=== PATIENT | female | born 1950 | race Two or more races ===

== ENCOUNTER 2020-07-10 15:13 | Emergency (ER) | payer MEDICARE, MEDICAID, SELFPAY ==
--- NOTE | ~2020-07-10 | XR_ITS ---
EXAMINATION: XR CHEST CLINICAL INFORMATION: Weakness COMPARISON: Chest x-ray 10/23/2018. CT chest 11/29/2018 TECHNIQUE: 2 views of the chest were obtained. FINDINGS: Lung volume is low. No significant central pulmonary vascular congestion. No focal consolidation. There is no pleural effusion or pneumothorax. Cardiac and mediastinal contours are normal. XR/XR chest 2V IMPRESSION: No acute abnormality of chest.
[2020-07-10 15:24] VITALS: BP 141/56; BP 150/90; PULSE 94; PULSE 95; RESP 16; TEMP 37.7; O2SAT 92; O2SAT 94; BMI 39.4
--- NOTE | 2020-07-10 15:52 | ECG_ITS ---
Test Reason : MEDICAL Blood Pressure : / mmHG Vent. Rate : 094 BPM Atrial Rate : 094 BPM P-R Int : 158 ms QRS Dur : 088 ms QT Int : 354 ms P-R-T Axes : 061 -20 013 degrees QTc Int : 442 ms Normal sinus rhythm Normal ECG When compared with ECG of 26-AUG-2016 09:48, Nonspecific T wave abnormality has replaced inverted T waves in Inferior leads Nonspecific T wave abnormality no longer evident in Lateral leads Referred By: Samantha Knowles Electronically Signed By:ELYSE ECHAVARRIA MD
[2020-07-10 16:00] VITALS: BP 145/74; PULSE 95; RESP 16; TEMP 37.6; O2SAT 99
[2020-07-10 17:11] LABS: Basophils Percent Auto 0.1 % (0-2); Hematocrit 37.7 % (37-47); Hemoglobin 12.2 g/dl (12.0-16.0); Imm Gran Abs Auto 0.08 X10*3/uL (0.00-0.03); Imm Gran Pct Auto 0.6 % (0.0-0.4); Lymphocytes Absolute Auto 0.6 X10*3/uL (1.2-4.9); MANUAL DIFF FLAG SCAN; Mean Corpuscular HGB Conc 32.4 g/dl (31.0-35.0); Mean Corpuscular Hemoglobin 31.5 pg (27.0-33.0); Mean Corpuscular Volume 97.4 fL (80-98); Mean Platelet Volume 9.3 fL (9.4-12.3); Monocytes Absolute Auto 0.6 X10*3/uL (0.1-1.2); Monocytes Percent Auto 4.1 % (2-11); Neutrophils Absolute Auto 13.1 X10*3/uL (2.0-8.3); Neutrophils Percent Auto 91.2 % (45-73); Platelet Count 225 X10*3/uL (160-400); Red Blood Count 3.87 X10*6/uL (4.20-5.50); SCAN SMEAR FLAG 1; White Blood Count 14.4 X10*3/uL (4.8-10.8)
[2020-07-10 17:12] LABS: Glucose Urine UA NEG (NEG); Leukocyte Esterase Urine TRACE (NEG); Nitrite Urine NEG (NEG); PH >= 9.0 (5.0-8.0); Specific Gravity - Urine 1.015 (1.005-1.025); UACC Culture Trigger YES; Urine Blood 1+ (NEG); Urine Ketones NEG (NEG); Urine Protein NEG (NEG-TRACE)
[2020-07-10 17:14] LABS: Appearance Urine HAZY; Color Urine YELLOW
[2020-07-10 17:15] LABS: INTERNATIONAL NORM RATIO 1.1 (0.9-1.1); Prothrombin Time 12.9 SEC (10.8-13.0)
[2020-07-10 17:18] LABS: Partial Thromboplastin Time 30.5 SEC (24.1-38.0)
[2020-07-10 17:26] LABS: Bacteria Urine 1+ /LPF; Squamous Epithelial Cell Urine 1+ /LPF
[2020-07-10 17:31] LABS: SLIDE REVIEW VERIFIED
[2020-07-10 17:34] LABS: Alanine Aminotransferase 7 U/L (0-31); Albumin Level 3.9 g/dL (3.5-5.0); Alkaline Phosphatase 79 U/L (39-117); Anion Gap 13 (12-20); Aspartate Amino Transferase 16 U/L (5-31); Bilirubin Total 0.5 mg/dL (0.0-1.0); Blood Urea Nitrogen 14 mg/dL (9-16); Carbon Dioxide 29 mmol/L (22-29); Chloride 103 mmol/L (96-108); Creatinine Clr Calc Pharmacy 48.7; Estimated Glomerular Filt Rate 54; Glucose Random 104 mg/dL (60-115); Potassium 3.9 mmol/L (3.3-5.1); Sodium 141 mmol/L (135-145); Total Protein 6.7 g/dL (6.5-8.0)
[2020-07-10 17:41] LABS: B Type Natriuretic Peptide 18 pg/mL (<100); Troponin-I High Sensitivity < 3.5 ng/L (<3.5-17.0)
--- NOTE | 2020-07-10 17:51 | ED_ITS ---
HPI - General Adult General Chief complaint: General Medical Stated complaint: body tingles, back pain, low o2 Time Seen by Provider: 07/10/20 15:41 Source: patient Mode of arrival: EMS Limitations: no limitations History of Present Illness HPI narrative: Patient is a 70-year-old female who was BIBA after experiencing numbness and tingling in her arms and hands, she states this is what happens when she gets pneumonia. She also states she has headache neck pain and back pain and malaise. She denies any abdominal pain chest pain shortness of breath or fevers. Related Data Home Medications Medication Instructions Recorded Confirmed acetaminophen 650 mg 650 mg PO Q8H PRN 06/08/20 06/08/20 tablet,extended release albuterol sulfate 2.5 mg INHALATION Q6H 06/08/20 06/08/20 albuterol sulfate 90 mcg/actuation 2 puff PO Q4-6H PRN 06/08/20 06/08/20 aerosol inhaler alendronate 70 mg tablet 70 mg PO QWEEK 06/08/20 06/08/20 aspirin 81 mg tablet,delayed 81 mg PO BEDTIME 06/08/20 06/08/20 release atorvastatin 20 mg tablet 20 mg PO DAILY 06/08/20 06/08/20 baclofen 10 mg tablet 10 mg PO TID PRN 06/08/20 06/08/20 bupropion HCl 150 mg 24 hr tablet, 150 mg PO BEDTIME 06/08/20 06/08/20 extended release calcium carbonate 500 mg calcium 500 mg PO QAM 06/08/20 06/08/20 (1,250 mg) tablet calcium carbonate 500 mg(1,250 1 tab PO QAM 06/08/20 06/08/20 mg)-vitamin D3 400 unit chewable tablet cholecalciferol (vitamin D3) 50 50 mcg PO QAM 06/08/20 06/08/20 mcg (2,000 unit) capsule desmopressin 0.2 mg tablet 0.4 mg PO BEDTIME 06/08/20 06/08/20 docusate sodium 100 mg capsule 100 mg PO BEDTIME PRN 06/08/20 06/08/20 ferrous sulfate 325 mg (65 mg 325 mg PO BEDTIME 06/08/20 06/08/20 iron) tablet fluticasone propionate 110 2 puff PO BID 06/08/20 06/08/20 mcg/actuation HFA aerosol inhaler fluticasone propionate 50 2 spray INTRANASAL DAILY 06/08/20 06/08/20 mcg/actuation nasal spray,suspension gabapentin 100 mg capsule 100 mg PO TID 06/08/20 06/08/20 hydrochlorothiazide 25 mg tablet 25 mg PO QAM 06/08/20 06/08/20 hydroxyzine pamoate 25 mg capsule 25 mg PO Q6H PRN 06/08/20 06/08/20 loratadine 10 mg tablet 10 mg PO QAM 06/08/20 06/08/20 melatonin 5 mg tablet 5 mg PO BEDTIME PRN 06/08/20 06/08/20 meloxicam 7.5 mg tablet 7.5 mg PO DAILY 06/08/20 06/08/20 montelukast 10 mg tablet 10 mg PO DAILY 06/08/20 06/08/20 sertraline 50 mg tablet 50 mg PO QAM 06/08/20 06/08/20 tramadol 50 mg tablet 50 mg PO Q12H PRN 06/08/20 06/08/20 trazodone 150 mg tablet 300 mg PO BEDTIME 06/08/20 06/08/20 Previous Rx's Medication Instructions Recorded cefuroxime axetil 500 mg PO Q12H #20 tab 07/10/20 Allergies Allergy/AdvReac Type Severity Reaction Status Date / Time prednisone [PREDNISONE] Allergy Severe AGITATION Verified 06/08/20 14:11 Review of Systems Review of Systems: Yes all other systems are reviewed and are negative [facility] Past Medical History Medical History Constipation by delayed colonic transit Depression Dyslipidemia Essential hypertension Hypovitaminosis D Insomnia Iron deficiency anemia Moderate asthma Osteoporosis Renal calculi Surgical History H/O: section Hx of breast reduction, elective Hx of laparoscopic gastric banding Family History Family History Father No problems noted. Mother Breast cancer Sister Diabetes Heart attack Maternal Grandmother Brain cancer Social History Social History Alcohol intake: never Smoking Status: Former smoker Tobacco Type: Cigarette Smoked in Last 30 Days: No Use of substances other than those prescribed or required for medical reasons: No Advance Directives: No Advance Directives Information Provided: Yes Physical Exam Vital Signs: Vital Signs: Last Vital Signs Temp 99.6 F 07/10/20 16:00 Pulse 95 07/10/20 16:00 Resp 16 07/10/20 16:00 BP 145/74 H 07/10/20 16:00 Pulse Ox 99 07/10/20 16:00 Body Mass Index 39.4 Const: General: cooperative, healthy appearing, comfortable, no acute distress and well developed Orientation/consciousness: patient oriented x3 Limitations: no limitations HENMT: Head: Yes normal to inspection Eyes: General: appearance normal, both eyes and all related structures Neck: Neck: Yes normal visual inspection and Yes full ROM Resp: Effort & Inspection: normal respiratory effort and able to speak in complete sentences Auscultation: clear to auscultation bilaterally Cardio: Rate: regular rate Rhythm: regular rhythm Heart sounds: normal S1 and S2 GI: Inspection: Yes normal to inspection Palpation (GI): Soft to palpation and nontender Skin: General skin exam: no rashes or lesions noted Neuro: General: patient oriented x3 Extrem: General: Yes normal to inspection Course Course Course Narrative: 70-year-old female of depression, HTN, iron deficiency anemia, asthma, osteoporosis, renal calculi and constipation presenting with 2 days of just not feeling right. She believes she has pneumonia because her arms were tingling and this is what happened to her before. Will get EKG chest x-ray UA and basic labs. Reevaluation(s) Reevaluation #1: White blood cell count 14.4, UA positive chest x-ray negative, EKG negative for acute process. Will give Tylenol, 1st dose of antibiotic and discharged home. Medical Decision Making Lab Data Result diagrams: 07/10/20 17:01 07/10/20 17:01 Labs: Lab Results 07/10/20 07/10/20 07/10/20 Range/Units 17:00 17:00 17:00 WBC (4.8-10.8) X10*3/uL RBC (4.20-5.50) X10*6/uL Hgb (12.0-16.0) g/dl Hct (37-47) % MCV (80-98) fL MCH (27.0-33.0) pg MCHC (31.0-35.0) g/dl RDW (11.0-16.0) % Plt Count (160-400) X10*3/uL MPV (9.4-12.3) fL Immature Gran % (Auto) (0.0-0.4) % Neut % (Auto) (45-73) % Lymph % (Auto) (20-40) % Cole % (Auto) (2-11) % Eos % (Auto) (0-4) % Baso % (Auto) (0-2) % Lymph # (Auto) (1.2-4.9) X10*3/uL Cole # (Auto) (0.1-1.2) X10*3/uL Eos # (Auto) (0.0-0.4) X10*3/uL Baso # (Auto) (0.0-0.2) X10*3/uL Abs Immat Gran (auto) (0.00-0.03) X10*3/uL Absolute Neuts (auto) (2.0-8.3) X10*3/uL Absolute Nucleated RBC (0.0-0.012) X10*3/uL Nucleated RBC % (auto) (0.0-0.2) /100WBC Smear Tech's Comments PT (10.8-13.0) SEC INR (0.9-1.1) APTT (24.1-38.0) SEC Sodium (135-145) mmol/L Potassium (3.3-5.1) mmol/L Chloride (96-108) mmol/L Carbon Dioxide (22-29) mmol/L Anion Gap (12-20) BUN (9-16) mg/dL Creatinine (0.5-1.4) mg/dL Estim Creat Clear Calc Estimated GFR Random Glucose (60-115) mg/dL Calcium (8.4-10.2) mg/dL Magnesium (1.6-2.6) mg/dL Total Bilirubin (0.0-1.0) mg/dL AST (5-31) U/L ALT (0-31) U/L Alkaline Phosphatase (39-117) U/L Troponin I High Sens < 3.5 (<3.5-17.0) ng/L B-Natriuretic Peptide Cancelled 18 Total Protein (6.5-8.0) g/dL Albumin (3.5-5.0) g/dL Urine Color YELLOW Urine Appearance HAZY Urine pH >= 9.0 H (5.0-8.0) Ur Specific [place] 1.015 (1.005-1.025) Urine Protein NEG (NEG-TRACE) MG/DL Urine Glucose (UA) NEG (NEG) MG/DL Urine Ketones NEG (NEG) MG/DL Urine Blood 1+ H (NEG) Urine Nitrite NEG (NEG) Ur Leukocyte Esterase TRACE H (NEG) Urine RBC 10-14 H (0) /HPF Urine WBC 5-9 H (0-4) /HPF Ur Squamous Epith Cells 1+ /LPF Urine Bacteria 1+ /LPF 07/10/20 07/10/20 07/10/20 Range/Units 17:01 17:01 17:01 WBC 14.4 H (4.8-10.8) X10*3/uL RBC 3.87 L (4.20-5.50) X10*6/uL Hgb 12.2 (12.0-16.0) g/dl Hct 37.7 (37-47) % MCV 97.4 (80-98) fL MCH 31.5 (27.0-33.0) pg MCHC 32.4 (31.0-35.0) g/dl RDW 13.0 (11.0-16.0) % Plt Count 225 (160-400) X10*3/uL MPV 9.3 L (9.4-12.3) fL Immature Gran % (Auto) 0.6 H (0.0-0.4) % Neut % (Auto) 91.2 H (45-73) % Lymph % (Auto) 4.0 L (20-40) % Cole % (Auto) 4.1 (2-11) % Eos % (Auto) 0.0 (0-4) % Baso % (Auto) 0.1 (0-2) % Lymph # (Auto) 0.6 L (1.2-4.9) X10*3/uL Cole # (Auto) 0.6 (0.1-1.2) X10*3/uL Eos # (Auto) 0.0 (0.0-0.4) X10*3/uL Baso # (Auto) 0.0 (0.0-0.2) X10*3/uL Abs Immat Gran (auto) 0.08 H (0.00-0.03) X10*3/uL Absolute Neuts (auto) 13.1 H (2.0-8.3) X10*3/uL Absolute Nucleated RBC 0.000 (0.0-0.012) X10*3/uL Nucleated RBC % (auto) 0.0 (0.0-0.2) /100WBC Smear Tech's Comments VERIFIED PT 12.9 (10.8-13.0) SEC INR 1.1 (0.9-1.1) APTT 30.5 (24.1-38.0) SEC Sodium 141 (135-145) mmol/L Potassium 3.9 (3.3-5.1) mmol/L Chloride 103 (96-108) mmol/L Carbon Dioxide 29 (22-29) mmol/L Anion Gap 13 (12-20) BUN 14 (9-16) mg/dL Creatinine 1.01 (0.5-1.4) mg/dL Estim Creat Clear Calc 48.7 Estimated GFR 54 Random Glucose 104 (60-115) mg/dL Calcium 9.0 (8.4-10.2) mg/dL Magnesium 2.0 (1.6-2.6) mg/dL Total Bilirubin 0.5 (0.0-1.0) mg/dL AST 16 (5-31) U/L ALT 7 (0-31) U/L Alkaline Phosphatase 79 (39-117) U/L Troponin I High Sens (<3.5-17.0) ng/L B-Natriuretic Peptide Total Protein 6.7 (6.5-8.0) g/dL Albumin 3.9 (3.5-5.0) g/dL Urine Color Urine Appearance Urine pH (5.0-8.0) Ur Specific [place] (1.005-1.025) Urine Protein (NEG-TRACE) MG/DL Urine Glucose (UA) (NEG) MG/DL Urine Ketones (NEG) MG/DL Urine Blood (NEG) Urine Nitrite (NEG) Ur Leukocyte Esterase (NEG) Urine RBC (0) /HPF Urine WBC (0-4) /HPF Ur Squamous Epith Cells /LPF Urine Bacteria /LPF Imaging Data Chest x-ray: Attestation: I personally reviewed and interpreted this imaging study as follows: Radiologist's impression: [address] [id number] ReportSigned Patient: Jennifer Whitehead IMR#: [id number]: [id number]:[id number]/Sex: 70 / FADM Date: 07/10/20Loc: [address]: Ordering Physician: Samantha Knowles PA-C Date of Service: 07/10/20 Procedure(s): XR chest 2V Accession Number(s): [id number] cc: Samantha Knowles PA-C~ EXAMINATION: XR CHEST CLINICAL INFORMATION: Weakness COMPARISON: Chest x-ray 10/23/2018. CT chest 11/29/2018 TECHNIQUE: 2 views of the chest were obtained. FINDINGS: Lung volume is low. No significant central pulmonary vascular congestion. No focal consolidation. There is no pleural effusion or pneumothorax. Cardiac and mediastinal contours are normal. XR/XR chest 2V IMPRESSION: No acute abnormality of chest. Dictated By:NILE PITTS MDSigned By:<Electronically signed by NILE PITTS MD in OV>07/10/20 1738 DD/ 1552TD/TT: Consultant In Ergonomics And Safety: ANA ECG Data Attestation: I personally reviewed and interpreted this ECG as follows: Interpretation: [address] [id number] lectrocardiograph ReportDraft Patient: Jennifer Whitehead IMR#: [id number]: [id number]:[id number]/Sex: 70 / FADM Date: 07/10/20Loc: [address]: Ordering Physician: Samantha Knowles PA-C Date of Service: 07/10/20 Procedure(s): ECG 12 lead EKG Accession Number(s): [id number] cc: ~ Test Reason : MEDICAL Blood Pressure : / mmHG Vent. Rate : 094 BPM Atrial Rate : 094 BPM P-R Int : 158 ms QRS Dur : 088 ms QT Int : 354 ms P-R-T Axes : 061 -20 013 degrees QTc Int : 442 ms Normal sinus rhythm Normal ECG When compared with ECG of 26-AUG-2016 09:48, Nonspecific T wave abnormality has replaced inverted T waves in Inferior leads Nonspecific T wave abnormality no longer evident in Lateral leads Referred By: Samantha Knowles Electronically Signed By: Dictated By:Signed By: DD/ 1628TD/TT: 07/10/20 1629Transcriptionist: Discharge Plan Discharge Clinical Impression: Urinary tract infection Qualifiers: Urinary tract infection type: acute cystitis Hematuria presence: without hematuria Qualified Code(s): N30.00 - Acute cystitis without hematuria Patient Disposition: Home, Self-Care Instructions: Urinary Tract Infection in Older Adults (ED) Prescriptions: New cefuroxime axetil 500 mg tablet 500 mg PO Q12H Qty: 20 RF: 0 No Action acetaminophen 650 mg tablet extended release 650 mg PO Q8H PRN (Reason: fever) RF: 0 aspirin 81 mg tablet,delayed release (DR/EC) 81 mg PO BEDTIME RF: 0 albuterol sulfate 90 mcg/actuation HFA aerosol inhaler 2 puff PO Q4-6H PRNRF: 0 Flovent HFA 110 mcg/actuation HFA aerosol inhaler 2 puff PO BID RF: 0 albuterol sulfate 2.5 mg /3 mL (0.083 %) solution for nebulization 2.5 mg inhalation Q6H RF: 0 baclofen 10 mg tablet 10 mg PO TID PRN (Reason: muscle spasm) RF: 0 calcium carbonate 500 mg calcium (1,250 mg) tablet 500 mg PO QAM RF: 0 desmopressin 0.2 mg tablet 0.4 mg PO BEDTIME RF: 0 ferrous sulfate 325 mg (65 mg iron) tablet 325 mg PO BEDTIME RF: 0 alendronate 70 mg tablet 70 mg PO QWEEK RF: 0 hydrochlorothiazide 25 mg tablet 25 mg PO QAM RF: 0 gabapentin 100 mg capsule 100 mg PO TID RF: 0 loratadine 10 mg tablet 10 mg PO QAM RF: 0 atorvastatin 20 mg tablet 20 mg PO DAILY RF: 0 montelukast 10 mg tablet 10 mg PO DAILY RF: 0 melatonin 5 mg tablet 5 mg PO BEDTIME PRN (Reason: insomnia) RF: 0 fluticasone propionate 50 mcg/actuation spray,suspension 2 spray intranasal DAILY RF: 0 tramadol 50 mg tablet 50 mg PO Q12H PRN (Reason: severe pain) RF: 0 hydroxyzine pamoate 25 mg capsule 25 mg PO Q6H PRN (Reason: anxiety) RF: 0 calcium carbonate-vitamin D3 500 mg(1,250mg) -400 unit tablet,chewable 1 tab PO QAM RF: 0 cholecalciferol (vitamin D3) 50 mcg (2,000 unit) capsule 50 mcg PO QAM RF: 0 bupropion HCl 150 mg tablet extended release 24 hr 150 mg PO BEDTIME RF: 0 sertraline 50 mg tablet 50 mg PO QAM RF: 0 docusate sodium 100 mg capsule 100 mg PO BEDTIME PRN (Reason: constipation) RF: 0 trazodone 150 mg tablet 300 mg PO BEDTIME RF: 0 meloxicam 7.5 mg tablet 7.5 mg PO DAILY RF: 0
[2020-07-10] MEDS: Acetaminophen 325 MG TABLET 650 MG PO (18:08)
== END 2020-07-10 18:22 | disposition home or self-care (01) ==
PROVIDERS: Physician Assistant; Emergency Provider Internal Medicine; PCP Family Medicine
DX: N30.00 Acute cystitis without hematuria (principal); I10 Essential (primary) hypertension; E78.5 Hyperlipidemia, unspecified; J45.909 Unspecified asthma, uncomplicated; D50.9 Iron deficiency anemia, unspecified; Z79.82 Long term (current) use of aspirin; Z79.899 Other long term (current) drug therapy; Z79.02 Long term (current) use of antithrombotics/antiplatelets
CPT/HCPCS: 36415; 71046; 80053; 81001; 81003; 83735; 83880; 84484; 85025; 85610; 85730; 87086; 93005; 99283; 99284

== ENCOUNTER 2020-07-26 13:19 | Inpatient (IN) | payer MEDICARE, MEDICAID, SELFPAY ==
--- NOTE | ~2020-07-26 | XR_ITS ---
EXAMINATION: 1. CHEST X-RAY 2. RADIOGRAPHS RIGHT ANKLE 3. RADIOGRAPHS LEFT ANKLE CLINICAL INFORMATION: Chest tenderness and bilateral ankle pain and swelling status post fall COMPARISON: Chest x-rays 07/10/2020 TECHNIQUE: Frontal view of the chest and 3 views of each ankle were obtained. FINDINGS: Chest: Cardiac silhouette is normal in size. Atherosclerotic disease of the aortic arch. The lungs are well aerated. There is no lobar consolidation. No pleural effusion or pneumothorax. Right ankle: Nondisplaced distal fibular fracture. There is prominent overlying soft tissue swelling. There is no fracture of the medial malleolus. Ankle mortise is grossly maintained. Left ankle: Lateral malleolus fracture with approximately 5 mm lateral offset of the distal fracture fragment. There is also a fracture of the medial malleolus with the body of the tibia is displaced medially by approximately 7 mm. As such there is disruption of the ankle mortise. There is prominent soft tissue swelling of the left ankle, most predominantly laterally. Small plantar calcaneal enthesophytes. XR/XR ankle LT min 3V IMPRESSION: 1. Bimalleolar fractures of the left ankle with associated disruption of the ankle mortise. 2. Nondisplaced fracture of the right lateral malleolus with maintenance of the ankle mortise. 3. No acute pulmonary pathology.
--- NOTE | ~2020-07-26 | XR_ITS ---
EXAMINATION: 1. CHEST X-RAY 2. RADIOGRAPHS RIGHT ANKLE 3. RADIOGRAPHS LEFT ANKLE CLINICAL INFORMATION: Chest tenderness and bilateral ankle pain and swelling status post fall COMPARISON: Chest x-rays 07/10/2020 TECHNIQUE: Frontal view of the chest and 3 views of each ankle were obtained. FINDINGS: Chest: Cardiac silhouette is normal in size. Atherosclerotic disease of the aortic arch. The lungs are well aerated. There is no lobar consolidation. No pleural effusion or pneumothorax. Right ankle: Nondisplaced distal fibular fracture. There is prominent overlying soft tissue swelling. There is no fracture of the medial malleolus. Ankle mortise is grossly maintained. Left ankle: Lateral malleolus fracture with approximately 5 mm lateral offset of the distal fracture fragment. There is also a fracture of the medial malleolus with the body of the tibia is displaced medially by approximately 7 mm. As such there is disruption of the ankle mortise. There is prominent soft tissue swelling of the left ankle, most predominantly laterally. Small plantar calcaneal enthesophytes. XR/XR chest 1V IMPRESSION: 1. Bimalleolar fractures of the left ankle with associated disruption of the ankle mortise. 2. Nondisplaced fracture of the right lateral malleolus with maintenance of the ankle mortise. 3. No acute pulmonary pathology.
--- NOTE | ~2020-07-26 | XR_ITS ---
EXAMINATION: 1. CHEST X-RAY 2. RADIOGRAPHS RIGHT ANKLE 3. RADIOGRAPHS LEFT ANKLE CLINICAL INFORMATION: Chest tenderness and bilateral ankle pain and swelling status post fall COMPARISON: Chest x-rays 07/10/2020 TECHNIQUE: Frontal view of the chest and 3 views of each ankle were obtained. FINDINGS: Chest: Cardiac silhouette is normal in size. Atherosclerotic disease of the aortic arch. The lungs are well aerated. There is no lobar consolidation. No pleural effusion or pneumothorax. Right ankle: Nondisplaced distal fibular fracture. There is prominent overlying soft tissue swelling. There is no fracture of the medial malleolus. Ankle mortise is grossly maintained. Left ankle: Lateral malleolus fracture with approximately 5 mm lateral offset of the distal fracture fragment. There is also a fracture of the medial malleolus with the body of the tibia is displaced medially by approximately 7 mm. As such there is disruption of the ankle mortise. There is prominent soft tissue swelling of the left ankle, most predominantly laterally. Small plantar calcaneal enthesophytes. XR/XR ankle RT min 3V IMPRESSION: 1. Bimalleolar fractures of the left ankle with associated disruption of the ankle mortise. 2. Nondisplaced fracture of the right lateral malleolus with maintenance of the ankle mortise. 3. No acute pulmonary pathology.
[2020-07-26 13:26] VITALS: BP 111/60; PULSE 76
[2020-07-26 13:36] VITALS: BP 155/75; PULSE 76; RESP 18; TEMP 36.1; O2SAT 98; BMI 39.4
--- NOTE | 2020-07-26 13:48 | ECG_ITS ---
Test Reason : FALL Blood Pressure : / mmHG Vent. Rate : 070 BPM Atrial Rate : 070 BPM P-R Int : 158 ms QRS Dur : 084 ms QT Int : 392 ms P-R-T Axes : 062 -18 002 degrees QTc Int : 423 ms Normal sinus rhythm Nonspecific ST abnormality Abnormal ECG When compared with ECG of 10-JUL-2020 16:28, No significant change was found Referred By: Judi Hampton Electronically Signed By:Iván Wilson
--- NOTE | 2020-07-26 13:48 | ED_ITS ---
HPI - Fall General Chief Complaint: Fall Stated Complaint: FALL WITH SEVERE ANKLE PAIN Time Seen by Provider: 07/26/20 13:27 Source: patient and EMS Mode of arrival: EMS Limitations: no limitations History of Present Illness HPI Narrative: 70 y/o female with history of HTN, mild intermittent asthma, depression, osteoporesis, kidney stones, osteoarthritis of knees who presents to the ER with severe left ankle pain after she fell at home. She reports she was in her bedroom and was walking to go to the bathroom. Her legs gave out on her and she fell, twisting her left ankle. Her left lower leg with pinned backwards under her and she was unable to get up. She thinks her right ankle was stuck under the table. She eventually crawled and got to her phone and called her daughter. She was on the ground for almost 2 hours. She presents with severe left ankle pain and swelling to both the medial and lateral areas as well as right lateral ankle swelling and pain. MD complaint: fall Onset (ago): hour(s) (3) Fall from: standing Fall witnessed: no Place fall occurred: home Loss of consciousness: none Prolonged down time: hour(s) (2) Symptoms prior to fall: lightheadedness Context: other (legs gave out) Location of injury - extremities: right: ankle Severity: severe Severity scale (1-10): 10 Quality: sharp and aching Associated symptoms (after fall): denies Related Data Home Medications Medication Instructions Recorded Confirmed acetaminophen 650 mg 650 mg PO Q8H PRN 06/08/20 06/08/20 tablet,extended release albuterol sulfate 2.5 mg INHALATION Q6H 06/08/20 06/08/20 albuterol sulfate 90 mcg/actuation 2 puff PO Q4-6H PRN 06/08/20 06/08/20 aerosol inhaler alendronate 70 mg tablet 70 mg PO QWEEK 06/08/20 06/08/20 aspirin 81 mg tablet,delayed 81 mg PO BEDTIME 06/08/20 06/08/20 release atorvastatin 20 mg tablet 20 mg PO DAILY 06/08/20 06/08/20 baclofen 10 mg tablet 10 mg PO TID PRN 06/08/20 06/08/20 bupropion HCl 150 mg 24 hr tablet, 150 mg PO BEDTIME 06/08/20 06/08/20 extended release calcium carbonate 500 mg calcium 500 mg PO QAM 06/08/20 06/08/20 (1,250 mg) tablet calcium carbonate 500 mg(1,250 1 tab PO QAM 06/08/20 06/08/20 mg)-vitamin D3 400 unit chewable tablet cholecalciferol (vitamin D3) 50 50 mcg PO QAM 06/08/20 06/08/20 mcg (2,000 unit) capsule desmopressin 0.2 mg tablet 0.4 mg PO BEDTIME 06/08/20 06/08/20 docusate sodium 100 mg capsule 100 mg PO BEDTIME PRN 06/08/20 06/08/20 ferrous sulfate 325 mg (65 mg 325 mg PO BEDTIME 06/08/20 06/08/20 iron) tablet fluticasone propionate 110 2 puff PO BID 06/08/20 06/08/20 mcg/actuation HFA aerosol inhaler fluticasone propionate 50 2 spray INTRANASAL DAILY 06/08/20 06/08/20 mcg/actuation nasal spray,suspension gabapentin 100 mg capsule 100 mg PO TID 06/08/20 06/08/20 hydrochlorothiazide 25 mg tablet 25 mg PO QAM 06/08/20 06/08/20 hydroxyzine pamoate 25 mg capsule 25 mg PO Q6H PRN 06/08/20 06/08/20 loratadine 10 mg tablet 10 mg PO QAM 06/08/20 06/08/20 melatonin 5 mg tablet 5 mg PO BEDTIME PRN 06/08/20 06/08/20 meloxicam 7.5 mg tablet 7.5 mg PO DAILY 06/08/20 06/08/20 montelukast 10 mg tablet 10 mg PO DAILY 06/08/20 06/08/20 sertraline 50 mg tablet 50 mg PO QAM 06/08/20 06/08/20 tramadol 50 mg tablet 50 mg PO Q12H PRN 06/08/20 06/08/20 trazodone 150 mg tablet 300 mg PO BEDTIME 06/08/20 06/08/20 Previous Rx's Medication Instructions Recorded cefuroxime axetil 500 mg PO Q12H #20 tab 07/10/20 Allergies Allergy/AdvReac Type Severity Reaction Status Date / Time prednisone [PREDNISONE] Allergy Severe AGITATION Verified 06/08/20 14:11 Review of Systems Review of Systems: Constitutional: No Fever, No Chills ENT/Mouth: No sore throat, No Rhinorrhea, No Swallowing Difficulty Cardiovascular: No Chest Pain, No SOB, No Orthopnea, No Edema Respiratory: No Cough, No Sputum, No Wheezing, No dyspnea Gastrointestinal: No Nausea, No Vomiting, No Diarrhea, No abdominal Pain Genitourinary: No Dysuria, No Urinary Frequency, No Hematuria Musculoskeletal: + joint pain, + Myalgias Skin: No Skin Lesions, No rash Neuro: No Weakness, No Numbness, No Dizziness, No Headache Psych: No Anxiety/Panic, No Depression Heme/Lymph: + Bruising, No Lymphadenopathy PMFSH Past Medical History Attestation statement: The following information was validated with the patient. Medical History Constipation by delayed colonic transit Depression Dyslipidemia Essential hypertension Hypovitaminosis D Insomnia Iron deficiency anemia Moderate asthma Osteoporosis Renal calculi Surgical History H/O: section Hx of breast reduction, elective Hx of laparoscopic gastric banding Family History Family History Father No problems noted. Mother Breast cancer Sister Diabetes Heart attack Maternal Grandmother Brain cancer Social History Social History Alcohol intake: never Smoking Status: Former smoker Tobacco Type: Cigarette Advance Directives: No Advance Directives Information Provided: Yes Physical Exam Vital Signs: Vital Signs: Last Vital Signs Temp 97.0 F 07/26/20 13:36 Pulse 76 07/26/20 13:36 Resp 18 07/26/20 13:36 BP 155/75 H 07/26/20 13:36 Pulse Ox 98 07/26/20 13:36 Body Mass Index 39.4 Appearance: Alert. Oriented X3. No acute distress. Eyes: Pupils equal, round and reactive to light. ENT: Pharynx normal. Neck: Normal inspection. Neck supple. CVS: Normal heart rate and rhythm. Pulses normal. Mild tenderness of superior sternal area. No deformity, Respiratory: No respiratory distress. Breath sounds normal. Abdomen: Soft and nontender. +BS x4 Skin: Skin warm and dry. Normal skin color. Normal skin turgor. No rashes. Extremities: left ankle with significant edema and ecchymosis to medial and lateral malleolus, unable to move her foot due to pain, no skin tenting. NV intact distally. no left calf tenderness, no knee tenderness, ecchymotic area to proximal lower leg on lateral aspect. right ankle with lateral malleloar tenderness and swelling, mild ecchymosis, NV intact distally. normal right knee. Pelvis is stable. No hip tenderness. Neuro: Oriented X 3. No motor deficit. No sensory deficit. Unable to test gait due to bilateral ankle pain and swelling Course Course Course Narrative: 70 y/o female presenting with bilateral ankle pain and swelling after a fall at home. Reporting her legs gave out on her. No chest pain, SOB or dizziness. She states she was slightly lightheaded prior. She was on the ground 2 hours afterward. Will check EKG, basic labs including CPK to r/u rhabdomyolysis. Reevaluation(s) Reevaluation #1: Lab workup is unremarkable including normal troponin and normal CPK. EKG without STEMI. Reevaluation #2: XR's showing 1. Bimalleolar fractures of the left ankle with associated disruption of the ankle mortise. 2. Nondisplaced fracture of the right lateral malleolus with maintenance of the ankle mortise. Motrin and Vicodin ordered for pain. Veronica from Ortho [facility] about possible admissi on. Reevaluation #3: Veronica reviewed case w/ attending - plan for admission to Orthopedic service. Patient and family updated on plan of care. Consultations Consultation #1: Ortho - Veronica Higgins PA-C MDM - Fall Differential Diagnosis Differential diagnosis: Likely syncope, dislocation, fracture and compression fracture Medical Records Attestation: I reviewed the patient's medical records. Lab Data Attestation: I reviewed the patient's lab results. Result diagrams: 07/26/20 14:05 07/26/20 14:05 Labs: Lab Results 07/26/20 07/26/20 07/26/20 Range/Units 13:59 14:05 14:05 WBC 11.5 H (4.8-10.8) X10*3/uL RBC 3.56 L (4.20-5.50) X10*6/uL Hgb 11.3 L (12.0-16.0) g/dl Hct 35.3 L (37-47) % MCV 99.2 H (80-98) fL MCH 31.7 (27.0-33.0) pg MCHC 32.0 (31.0-35.0) g/dl RDW 13.2 (11.0-16.0) % Plt Count 264 (160-400) X10*3/uL MPV 8.7 L (9.4-12.3) fL Immature Gran % (Auto) 0.3 (0.0-0.4) % Neut % (Auto) 88.1 H (45-73) % Lymph % (Auto) 7.5 L (20-40) % [place] % (Auto) 3.8 (2-11) % Eos % (Auto) 0.0 (0-4) % Baso % (Auto) 0.3 (0-2) % Lymph # (Auto) 0.9 L (1.2-4.9) X10*3/uL [place] # (Auto) 0.4 (0.1-1.2) X10*3/uL Eos # (Auto) 0.0 (0.0-0.4) X10*3/uL Baso # (Auto) 0.0 (0.0-0.2) X10*3/uL Abs Immat Gran (auto) 0.04 H (0.00-0.03) X10*3/uL Absolute Neuts (auto) 10.1 H (2.0-8.3) X10*3/uL Absolute Nucleated RBC 0.000 (0.0-0.012) X10*3/uL Nucleated RBC % (auto) 0.0 (0.0-0.2) /100WBC Hold Blue Top SEE NOTE Sodium (135-145) mmol/L Potassium (3.3-5.1) mmol/L Chloride (96-108) mmol/L Carbon Dioxide (22-29) mmol/L Anion Gap (12-20) BUN (9-16) mg/dL Creatinine (0.5-1.4) mg/dL Estim Creat Clear Calc Estimated GFR Random Glucose (60-115) mg/dL Calcium (8.4-10.2) mg/dL Total Creatine Kinase (26-140) U/L Troponin I High Sens (<3.5-17.0) ng/L Urine Color YELLOW Urine Appearance CLEAR Urine pH 6.0 (5.0-8.0) Ur Specific [place] 1.010 (1.005-1.025) Urine Protein NEG (NEG-TRACE) MG/DL Urine Glucose (UA) NEG (NEG) MG/DL Urine Ketones NEG (NEG) MG/DL Urine Blood 1+ H (NEG) Urine Nitrite NEG (NEG) Ur Leukocyte Esterase NEG (NEG) Urine RBC 0-2 (0) /HPF Urine WBC 0-2 (0-4) /HPF Ur Squamous Epith Cells NONE /LPF Urine Bacteria Not Reportable 07/26/20 07/26/20 Range/Units 14:05 14:05 WBC (4.8-10.8) X10*3/uL RBC (4.20-5.50) X10*6/uL Hgb (12.0-16.0) g/dl Hct (37-47) % MCV (80-98) fL MCH (27.0-33.0) pg MCHC (31.0-35.0) g/dl RDW (11.0-16.0) % Plt Count (160-400) X10*3/uL MPV (9.4-12.3) fL Immature Gran % (Auto) (0.0-0.4) % Neut % (Auto) (45-73) % Lymph % (Auto) (20-40) % [place] % (Auto) (2-11) % Eos % (Auto) (0-4) % Baso % (Auto) (0-2) % Lymph # (Auto) (1.2-4.9) X10*3/uL [place] # (Auto) (0.1-1.2) X10*3/uL Eos # (Auto) (0.0-0.4) X10*3/uL Baso # (Auto) (0.0-0.2) X10*3/uL Abs Immat Gran (auto) (0.00-0.03) X10*3/uL Absolute Neuts (auto) (2.0-8.3) X10*3/uL Absolute Nucleated RBC (0.0-0.012) X10*3/uL Nucleated RBC % (auto) (0.0-0.2) /100WBC Hold Blue Top Sodium 143 (135-145) mmol/L Potassium 3.6 (3.3-5.1) mmol/L Chloride 106 (96-108) mmol/L Carbon Dioxide 28 (22-29) mmol/L Anion Gap 13 (12-20) BUN 8 L (9-16) mg/dL Creatinine 0.81 (0.5-1.4) mg/dL Estim Creat Clear Calc 60.7 Estimated GFR > 60 Random Glucose 95 (60-115) mg/dL Calcium 8.8 (8.4-10.2) mg/dL Total Creatine Kinase 75 (26-140) U/L Troponin I High Sens < 3.5 (<3.5-17.0) ng/L Urine Color Urine Appearance Urine pH (5.0-8.0) Ur Specific [place] (1.005-1.025) Urine Protein (NEG-TRACE) MG/DL Urine Glucose (UA) (NEG) MG/DL Urine Ketones (NEG) MG/DL Urine Blood (NEG) Urine Nitrite (NEG) Ur Leukocyte Esterase (NEG) Urine RBC (0) /HPF Urine WBC (0-4) /HPF Ur Squamous Epith Cells /LPF Urine Bacteria ECG Data Attestation: I personally reviewed and interpreted this ECG as follows: ECG interpretation date: 07/26/20 ECG interpretation time: 14:16 Interpretation: normal sinus rhythm, HR 70 bpm, normal DE interval, nonspecific T-wave abnormality, normal QTc Discharge Plan Discharge Clinical Impression: Bimalleolar ankle fracture Qualifiers: Encounter type: initial encounter Fracture type: closed Laterality: left Qualified Code(s): S82.842A - Displaced bimalleolar fracture of left lower leg, initial encounter for closed fracture Ankle fracture, lateral malleolus, closed Qualifiers: Encounter type: initial encounter Fracture alignment: nondisplaced Laterality: right Qualified Code(s): S82.64XA - Nondisplaced fracture of lateral malleolus of right fibula, initial encounter for closed fracture Fall Qualifiers: Encounter type: initial encounter Qualified Code(s): W19.XXXA - Unspecified fall, initial encounter Patient Disposition: Admitted As Inpatient
[2020-07-26 14:10] LABS: MANUAL DIFF FLAG NO
[2020-07-26 14:11] LABS: Basophils Percent Auto 0.3 % (0-2); Hematocrit 35.3 % (37-47); Hemoglobin 11.3 g/dl (12.0-16.0); Imm Gran Abs Auto 0.04 X10*3/uL (0.00-0.03); Imm Gran Pct Auto 0.3 % (0.0-0.4); Lymphocytes Absolute Auto 0.9 X10*3/uL (1.2-4.9); Lymphocytes Percent Auto 7.5 % (20-40); Mean Corpuscular Hemoglobin 31.7 pg (27.0-33.0); Mean Corpuscular Volume 99.2 fL (80-98); Mean Platelet Volume 8.7 fL (9.4-12.3); Monocytes Absolute Auto 0.4 X10*3/uL (0.1-1.2); Monocytes Percent Auto 3.8 % (2-11); Neutrophils Absolute Auto 10.1 X10*3/uL (2.0-8.3); Neutrophils Percent Auto 88.1 % (45-73); Platelet Count 264 X10*3/uL (160-400); Red Blood Count 3.56 X10*6/uL (4.20-5.50); Red Cell Distribution Width 13.2 % (11.0-16.0); White Blood Count 11.5 X10*3/uL (4.8-10.8)
[2020-07-26 14:13] LABS: Glucose Urine UA NEG (NEG); Leukocyte Esterase Urine NEG (NEG); Nitrite Urine NEG (NEG); Urine Blood 1+ (NEG); Urine Ketones NEG (NEG); Urine Protein NEG (NEG-TRACE)
[2020-07-26 14:18] LABS: Appearance Urine CLEAR; Color Urine YELLOW
[2020-07-26 14:31] LABS: RBC Urine 0-2 /HPF (0); WBC Urine 0-2 /HPF (0-4)
[2020-07-26 14:38] LABS: Troponin-I High Sensitivity < 3.5 ng/L (<3.5-17.0)
[2020-07-26 14:45] LABS: Anion Gap 13 (12-20); Blood Urea Nitrogen 8 mg/dL (9-16); Calcium 8.8 mg/dL (8.4-10.2); Carbon Dioxide 28 mmol/L (22-29); Chloride 106 mmol/L (96-108); Creatinine Clr Calc Pharmacy 60.7; Estimated Glomerular Filt Rate > 60; Glucose Random 95 mg/dL (60-115); Potassium 3.6 mmol/L (3.3-5.1); Sodium 143 mmol/L (135-145)
[2020-07-26] MEDS: HYDROcodone Bit/Acetam 5/325 TABLET 1 TAB PO (15:23)
[2020-07-26 16:27] VITALS: BP 155/51; PULSE 95; RESP 18; TEMP 36.3; O2SAT 97
[2020-07-26] MEDS: Dextrose 5 % and 0.45 % NaCl 1,000 ML 100 ML IVCONT (16:35)
[2020-07-26] MEDS: HYDROmorphone HCl 0.5 MG/0.5 ML SYRINGE 0.25 MG IVPUSH ×2 (16:35→21:05)
--- NOTE | 2020-07-26 16:52 | PM.IMCN ---
History of Present Illness Data of Consult Service Date: 07/26/20 Requesting physician: Rosa Higgins Primary Care Provider: DO SANDY Kruse Reason for consult: Medical Management 70-year-old woman presented to the ER after a fall home. She reports that she got up from her bed started walking after putting her slippers on and suddenly fell to the ground. She reports that her legs gave out on her. She denied any loss of consciousness but she did feel dizzy. She reports that she was on the ground for approximately 2 hours because of the pain in her ankles and feet and she was unable to get up. She was at some point able to crawl to a phone and call a family member. Ankle imaging showed by malleolar fractures of the left ankle with associated disruption of the ankle mortise, nondisplaced fracture of the right lateral malleolus. Her vital signs have remained stable, labs within acceptable limits. She was started on IV fluids, given pain medication. Medical consultation was placed for medical management. Review of Systems Review of Systems: Denies any recent fever chills or decrease in appetite respiratory denies any shortness of breath coverage production cardiovascular is adjustment of any PND or edema gastrointestinal denies any dysphagia abdominal pain nausea vomiting or diarrhea genitourinary denies any dysuria frequency or hematuria musculoskeletal See HPI neuropsych denies any weakness or seizures all other systems reviewed are negative COUNTS INCLUDE 234 BEDS AT THE [facility] Medical History Constipation by delayed colonic transit Depression Dyslipidemia Essential hypertension Hypovitaminosis D Insomnia Iron deficiency anemia Moderate asthma Osteoporosis Renal calculi Family History Father No problems noted. Mother Breast cancer Sister Diabetes Heart attack Maternal Grandmother Brain cancer Surgical History H/O: section Hx of breast reduction, elective Hx of laparoscopic gastric banding Social History Alcohol intake: never Smoking Status: Former smoker Tobacco Type: Cigarette Advance Directives: No Advance Directives Information Provided: Yes Meds Allergies Allergy/AdvReac Type Severity Reaction Status Date / Time prednisone [PREDNISONE] Allergy Severe AGITATION Verified 06/08/20 14:11 Active Medications: Current Medications Generic Name Dose Route Start Last Admin Trade Name Adriano PRN Reason Stop Dose Admin Acetaminophen 650 mg 07/26/20 16:17 Acetaminophen Supp 650 Mg Supp.Rect IL Q6H PRN Pain, Mild (Pain Scale 1-3) Docusate Sodium 100 mg 07/26/20 21:00 Docusate Sodium 100 Mg Capsule PO BID KUMAR Hydromorphone HCl 0.25 mg 07/26/20 16:17 07/26/20 16:35 Hydromorphone Hcl 0.5 Mg/0.5 Ml Syringe IVPUSH 0.25 mg Q4H PRN Administration Pain, Severe (Pain Scale 7-10) Dextrose/Sodium Chloride 1,000 mls @ 100 mls/hr 07/26/20 16:17 07/26/20 16:35 D51/2ns IVCONT 100 mls/hr .Q10H KUMAR Administration Naloxone HCl 0.2 mg 07/26/20 16:17 Naloxone Hcl 0.4 Mg/Ml Vial IVPUSH Q2M PRN Excessive sedation or RR < 8 Ondansetron HCl 4 mg 07/26/20 16:17 Ondansetron Hcl 4 Mg/2 Ml Vial IVPUSH Q8H PRN Nausea and Vomiting Oxycodone HCl 5 mg 07/26/20 16:17 Oxycodone Hcl Immed Release 5 Mg Tablet PO Q4H PRN Pain, Moderate (Pain Scale 4-6 Sodium Chloride 3 ml 07/26/20 16:17 0.9 % Sodium Chloride Flush 3 Ml Syringe IVFLUSH QSHIFT [facility] Home Medications Medication Instructions Recorded Confirmed Last Taken Type acetaminophen 650 mg 650 mg PO Q8H PRN 06/08/20 06/08/20 Unknown History tablet,extended release albuterol sulfate 2.5 mg INHALATION Q6H 06/08/20 06/08/20 Unknown History albuterol sulfate 90 mcg/actuation 2 puff PO Q4-6H PRN 06/08/20 06/08/20 Unknown History aerosol inhaler alendronate 70 mg tablet 70 mg PO QWEEK 06/08/20 06/08/20 Unknown History aspirin 81 mg tablet,delayed 81 mg PO BEDTIME 06/08/20 06/08/20 Unknown History release atorvastatin 20 mg tablet 20 mg PO DAILY 06/08/20 06/08/20 Unknown History baclofen 10 mg tablet 10 mg PO TID PRN 06/08/20 06/08/20 Unknown History bupropion HCl 150 mg 24 hr tablet, 150 mg PO BEDTIME 06/08/20 06/08/20 Unknown History extended release calcium carbonate 500 mg calcium 500 mg PO QAM 06/08/20 06/08/20 Unknown History (1,250 mg) tablet calcium carbonate 500 mg(1,250 1 tab PO QAM 06/08/20 06/08/20 Unknown History mg)-vitamin D3 400 unit chewable tablet cholecalciferol (vitamin D3) 50 50 mcg PO QAM 06/08/20 06/08/20 Unknown History mcg (2,000 unit) capsule desmopressin 0.2 mg tablet 0.4 mg PO BEDTIME 06/08/20 06/08/20 Unknown History docusate sodium 100 mg capsule 100 mg PO BEDTIME PRN 06/08/20 06/08/20 Unknown History ferrous sulfate 325 mg (65 mg 325 mg PO BEDTIME 06/08/20 06/08/20 Unknown History iron) tablet fluticasone propionate 110 2 puff PO BID 06/08/20 06/08/20 Unknown History mcg/actuation HFA aerosol inhaler fluticasone propionate 50 2 spray INTRANASAL DAILY 06/08/20 06/08/20 Unknown History mcg/actuation nasal spray,suspension gabapentin 100 mg capsule 100 mg PO TID 06/08/20 06/08/20 Unknown History hydrochlorothiazide 25 mg tablet 25 mg PO QAM 06/08/20 06/08/20 Unknown History hydroxyzine pamoate 25 mg capsule 25 mg PO Q6H PRN 06/08/20 06/08/20 Unknown History loratadine 10 mg tablet 10 mg PO QAM 06/08/20 06/08/20 Unknown History melatonin 5 mg tablet 5 mg PO BEDTIME PRN 06/08/20 06/08/20 Unknown History meloxicam 7.5 mg tablet 7.5 mg PO DAILY 06/08/20 06/08/20 Unknown History montelukast 10 mg tablet 10 mg PO DAILY 06/08/20 06/08/20 Unknown History sertraline 50 mg tablet 50 mg PO QAM 06/08/20 06/08/20 Unknown History tramadol 50 mg tablet 50 mg PO Q12H PRN 06/08/20 06/08/20 Unknown History trazodone 150 mg tablet 300 mg PO BEDTIME 06/08/20 06/08/20 Unknown History Physical Exam Vital Signs and Narrative: Vital Signs: Last Vital Signs Temp 97.3 F 07/26/20 16:27 Pulse 95 07/26/20 16:27 Resp 18 07/26/20 16:27 BP 155/51 H 07/26/20 16:27 Pulse Ox 97 07/26/20 16:27 Body Mass Index 39.4 Appearing in no acute distress head is normocephalic atraumatic eyes pupils are PERRLA sclera is anicteric mouth throat mucous membranes are intact and moist neck is supple no lymphadenopathy, no JVD noted lung sounds are clear to auscultation heart regular rate rhythm, clear S1, S2 positive bowel sounds, abdomen is soft, nontender neuro patient is alert x3, no focal deficits MSK Left ankle swelling Results Labs CBC and Chem 7: 07/26/20 14:05 07/26/20 14:05 Labs: Laboratory Results - last 24 hr 07/26/20 07/26/20 07/26/20 13:59 14:05 14:05 MCV 99.2 H MCH 31.7 MCHC 32.0 RDW 13.2 Plt Count 264 MPV 8.7 L Immature Gran % (Auto) 0.3 Neut % (Auto) 88.1 H Lymph % (Auto) 7.5 L [place] % (Auto) 3.8 Eos % (Auto) 0.0 Baso % (Auto) 0.3 Lymph # (Auto) 0.9 L [place] # (Auto) 0.4 Eos # (Auto) 0.0 Baso # (Auto) 0.0 Abs Immat Gran (auto) 0.04 H Absolute Neuts (auto) 10.1 H Absolute Nucleated RBC 0.000 Nucleated RBC % (auto) 0.0 Hold Blue Top SEE NOTE Anion Gap Estim Creat Clear Calc Estimated GFR Random Glucose Calcium Total Creatine Kinase Troponin I High Sens Urine Color YELLOW Urine Appearance CLEAR Urine pH 6.0 Ur Specific [place] 1.010 Urine Protein NEG Urine Glucose (UA) NEG Urine Ketones NEG Urine Blood 1+ H Urine Nitrite NEG Ur Leukocyte Esterase NEG Urine RBC 0-2 Urine WBC 0-2 Ur Squamous Epith Cells NONE Urine Bacteria Not Reportable 07/26/20 07/26/20 14:05 14:05 MCV MCH MCHC RDW Plt Count MPV Immature Gran % (Auto) Neut % (Auto) Lymph % (Auto) [place] % (Auto) Eos % (Auto) Baso % (Auto) Lymph # (Auto) [place] # (Auto) Eos # (Auto) Baso # (Auto) Abs Immat Gran (auto) Absolute Neuts (auto) Absolute Nucleated RBC Nucleated RBC % (auto) Hold Blue Top Anion Gap 13 Estim Creat Clear Calc 60.7 Estimated GFR > 60 Random Glucose 95 Calcium 8.8 Total Creatine Kinase 75 Troponin I High Sens < 3.5 Urine Color Urine Appearance Urine pH Ur Specific [place] Urine Protein Urine Glucose (UA) Urine Ketones Urine Blood Urine Nitrite Ur Leukocyte Esterase Urine RBC Urine WBC Ur Squamous Epith Cells Urine Bacteria Imaging Radiologist's Impressions: Impressions Ankle X-Ray 07/26/20 13:42 IMPRESSION: 1. Bimalleolar fractures of the left ankle with associated disruption of the ankle mortise. 2. Nondisplaced fracture of the right lateral malleolus with maintenance of the ankle mortise. 3. No acute pulmonary pathology. Chest X-Ray 07/26/20 13:48 IMPRESSION: 1. Bimalleolar fractures of the left ankle with associated disruption of the ankle mortise. 2. Nondisplaced fracture of the right lateral malleolus with maintenance of the ankle mortise. 3. No acute pulmonary pathology. Ankle X-Ray 07/26/20 14:06 IMPRESSION: 1. Bimalleolar fractures of the left ankle with associated disruption of the ankle mortise. 2. Nondisplaced fracture of the right lateral malleolus with maintenance of the ankle mortise. 3. No acute pulmonary pathology. Assessment and Plan (1) Bimalleolar ankle fracture: Qualifiers: Encounter type: initial encounter Fracture type: closed Laterality: left Qualified Code(s): S82.842A - Displaced bimalleolar fracture of left lower leg, initial encounter for closed fracture Status: Acute 70 year old women admitted by orthopedic surgery for ankle fracture secondary to a fall at home. According to the [employer] surgical risk calculator, the patient is at below average risk for briana/postoperative complications post moderate risk ankle surgery. Bimalleolar ankle fracture. -Management as per surgical team -Pain management ? orthostatic Hypotension. No syncope but dizziness after standing from bed -Monitor Orthostatic BP, at least lying and sitting Hypertension. Elevated blood pressure. -Continue HCTZ and Lisinopril. -Monitor BP to avoid hypotension Asthma -Albuterol as needed HLD -Hold asa and statin for now Depression -Continue home medications DVT prophylaxis as per surgical team Full code Attending: Dr. Alexandre
[2020-07-26] MEDS: oxyCODONE HCl Immed Release 5 MG TABLET PO (18:21)
--- NOTE | 2020-07-26 19:28 | PC.NURSE ---
Report taken from Galen, tyson RN resuming care. Pt resting in bed, IVF infusing par MAR. Covid swab obtained and sent. VSS. Continue to monitor.
[2020-07-26 19:36] LABS: COVID-19 Test Negative (Negative); IDNOW Serial# 9DD0AD1C
--- NOTE | 2020-07-26 20:29 | PC.NURSE ---
IVF continuously alarming as pt is unable to keep her right arm straight. Per pt request, a second IV line was established to left forearm, IVFs infusing easily.
--- NOTE | 2020-07-26 20:51 | PC.NURSE ---
Med Rec completed at bedside with pt, pt denies other medications.
[2020-07-26] MEDS: Docusate Sodium 100 MG CAPSULE PO (21:05)
[2020-07-26 21:09] VITALS: BP 125/52; PULSE 90; RESP 20
--- NOTE | 2020-07-26 21:09 | PC.NURSE ---
Pt medicated with 10/10 to left ankle with PRN Dilaudid. This RN disposing of vial after wasting medication with floral designer, Rosanna. Rosanna witnessing disposal of Dilaudid vial. VSS at this time, pt awaiting admission to floor. Family at bedside. Continue to monitor.
--- NOTE | 2020-07-26 22:43 | PC.NURSE ---
Report given to M/S RN, plan for metal wire technician to transport pt to floor.
[2020-07-26 23:04] VITALS: PULSE 82; RESP 15; TEMP 36.7; O2SAT 99
[2020-07-27] VITALS (8 sets, daily range): BP systolic 109–167; BP diastolic 50–109; PULSE 62–108; RESP 14–18; TEMP 36.5–37.6; O2SAT 92–96
[2020-07-27] MEDS: oxyCODONE HCl Immed Release 5 MG TABLET PO (00:30)
[2020-07-27] MEDS: 0.9 % Sodium Chloride Flush 3 ML SYRINGE IVFLUSH (00:34)
[2020-07-27] MEDS: Morphine Sulfate 4 MG/ML CARTRIDGE IVPUSH (01:49)
[2020-07-27] MEDS: HYDROmorphone HCl 0.5 MG/0.5 ML SYRINGE 0.25 MG IVPUSH ×3 (01:50→12:44)
[2020-07-27] MEDS: oxyCODONE HCl Immed Release 5 MG TABLET 10 MG PO ×4 (04:47→20:11)
[2020-07-27] MEDS: Dextrose 5 % and 0.45 % NaCl 1,000 ML 100 ML IVCONT ×2 (04:48→14:29)
[2020-07-27 04:55] LABS: MANUAL DIFF FLAG NO
[2020-07-27 05:00] LABS: Basophils Percent Auto 0.5 % (0-2); Hematocrit 30.1 % (37-47); Hemoglobin 9.4 g/dl (12.0-16.0); Imm Gran Abs Auto 0.02 X10*3/uL (0.00-0.03); Imm Gran Pct Auto 0.3 % (0.0-0.4); Lymphocytes Absolute Auto 1.6 X10*3/uL (1.2-4.9); Lymphocytes Percent Auto 27.3 % (20-40); Mean Corpuscular HGB Conc 31.2 g/dl (31.0-35.0); Mean Corpuscular Hemoglobin 30.9 pg (27.0-33.0); Monocytes Absolute Auto 0.5 X10*3/uL (0.1-1.2); Neutrophils Absolute Auto 3.8 X10*3/uL (2.0-8.3); Neutrophils Percent Auto 63.9 % (45-73); Platelet Count 224 X10*3/uL (160-400); Red Blood Count 3.04 X10*6/uL (4.20-5.50); Red Cell Distribution Width 13.5 % (11.0-16.0)
[2020-07-27 05:27] LABS: Anion Gap 9 (12-20); Blood Urea Nitrogen 7 mg/dL (9-16); Calcium 8.1 mg/dL (8.4-10.2); Carbon Dioxide 31 mmol/L (22-29); Chloride 102 mmol/L (96-108); Creatinine Clr Calc Pharmacy 65.5; Estimated Glomerular Filt Rate > 60; Glucose Fasting 121 mg/dL (60-99); Potassium 3.9 mmol/L (3.3-5.1); Sodium 138 mmol/L (135-145)
--- NOTE | 2020-07-27 10:03 | P.EN_ITS ---
Event Note Date of Service: 07/27/20 Event Note: 50-year-old female who fell at home resulting in bilateral ankle f ractures. Right ankle distal fibular fracture nondisplaced. We will treat non operative with a boot weight-bearing as tolerated. Left ankle bimalleolar fracture will treat with a posterior splint an operative fixation. Due to her skin condition of excessive swelling and blistering will be unable to do surgery this week. She will see us on Monday in the office for a skin check. Will likely need to go to rehab given the fact that she lives alone.
--- NOTE | 2020-07-27 10:34 | HO.PM.IMPN ---
Subjective Subjective Date of Service: 07/27/20 Interval History: Follow up consult for ankle fractures Pain to both ankles Noted swelling and blistering to left ankle Physical Exam Vital Signs: Vital Signs: Last Vital Signs Temp 97.9 F 07/27/20 07:00 Pulse 89 07/27/20 07:00 Resp 18 07/27/20 07:00 BP 122/50 L 07/27/20 07:00 Pulse Ox 92 07/27/20 07:00 Body Mass Index 39.4 Appearing in no acute distress lung sounds are clear to auscultation heart regular rate rhythm, clear S1, S2 positive bowel sounds, abdomen is soft, nontender neuro patient is alert x3, no focal deficits MSK bilateral ankle swelling, left with blistering Objective Data Current Medications Generic Name Dose Route Start Last Admin Trade Name Freq PRN Reason Stop Dose Admin Acetaminophen 650 mg 07/26/20 16:17 Acetaminophen Supp 650 Mg Supp.Rect [place] Q6H PRN Pain, Mild (Pain Scale 1-3) Docusate Sodium 100 mg 07/26/20 21:00 07/27/20 09:05 Docusate Sodium 100 Mg Capsule PO Not Given BID KUMAR Hydromorphone HCl 0.25 mg 07/26/20 16:17 07/27/20 08:59 Hydromorphone Hcl 0.5 Mg/0.5 Ml Syringe IVPUSH 0.25 mg Q4H PRN Administration Pain, Severe (Pain Scale 7-10) Dextrose/Sodium Chloride 1,000 mls @ 100 mls/hr 07/26/20 16:17 07/27/20 04:48 D51/2ns IVCONT 100 mls/hr .Q10H KUMAR Administration Naloxone HCl 0.2 mg 07/26/20 16:17 Naloxone Hcl 0.4 Mg/Ml Vial IVPUSH Q2M PRN Excessive sedation or RR < 8 Ondansetron HCl 4 mg 07/26/20 16:17 Ondansetron Hcl 4 Mg/2 Ml Vial IVPUSH Q8H PRN Nausea and Vomiting Oxycodone HCl 10 mg 07/27/20 02:12 07/27/20 09:08 Oxycodone Hcl Immed Release 5 Mg Tablet PO 10 mg Q4H PRN Administration Pain, Moderate (Pain Scale 4-6 Sodium Chloride 3 ml 07/26/20 16:17 07/27/20 09:05 0.9 % Sodium Chloride Flush 3 Ml Syringe IVFLUSH Not Given QSHIFT [facility] Labs CBC & Chem 7: 07/27/20 04:39 07/27/20 04:39 Assessment and Plan (1) Bimalleolar ankle fracture: Status: Acute Assessment and Plan: 70 year old women admitted by orthopedic surgery for ankle fracture secondary to a fall at home. According to the [employer] [place] [employer] surgical risk calculator, the patient is at below average risk for briana/postoperative complications post moderate risk ankle surgery. Bimalleolar ankle fracture. Possible transfer to rehab and then surgical intervention when edema and blistering is improved -Management as per surgical team -Pain management ? orthostatic Hypotension. No syncope but dizziness after standing from bed -Monitor Orthostatic BP, at least lying and sitting, pending Hypertension. Elevated blood pressure. -Continue HCTZ and Lisinopril. -Monitor BP to avoid hypotension Asthma -Albuterol as needed HLD -Hold asa and statin for now Depression -Continue home medications DISPO: Rehab tomorrow DVT prophylaxis as per surgical team Full code Attending: Dr. Garcia
--- NOTE | 2020-07-27 10:51 | PM.HPOR ---
History of Present Illness History of Present Illness Date of Service: 07/27/20 Chief complaint: Bilateral ankle fracture Narrative: Jennifer Whitehead I is a 70 year old female who presented to the emergency department yesterday after sustaining a fall at home. She injured both her ankles resulting in a distal fibular fracture on the right and a bimalleolar fracture on the left. She was on the floor for about 2 hours before she can make a to her phone. Orthopedics was called for recommendation and plan was to admit the patient for surgical planning. Patient states she lives alone. Review of Systems Review of Systems: Yes all other systems are reviewed and are negative [facility] Past Medical History Medical History Constipation by delayed colonic transit Depression Dyslipidemia Essential hypertension Hypovitaminosis D Insomnia Iron deficiency anemia Moderate asthma Osteoporosis Renal calculi Family History Family History Father No problems noted. Mother Breast cancer Sister Diabetes Heart attack Maternal Grandmother Brain cancer Surgical History Surgical History H/O: section Hx of breast reduction, elective Hx of laparoscopic gastric banding Social History Social History Household Members: None Housing: Apartment Do you presently have visiting nurse or other home services: No Alcohol intake: never Smoking Status: Former smoker Tobacco Type: Cigarette Use of substances other than those prescribed or required for medical reasons: No Currently Displaying Signs/Symptoms of Drug Intoxication Withdrawal: No Have you been hit, kicked, punched, or otherwise hurt by someone within the past year? If so, by whom?: No Do you feel safe in your current relationship?: No Current Relationship Is there a partner from a previous relationship who is making you feel unsafe now?: No Are you made to feel afraid or neglected: No Advance Directives: No Advance Directives Information Provided: Yes Do you have thoughts of harming others: None Do you have a plan to hurt others: No Plan Recently lost weight without trying: No How much weight loss: Not applicable Eating poorly because of decreased appetite: No Nutrition screen score: 0 Nutrition Risks: No Nutritional Risk Patient : No : No Poor oral hygiene: No Meds Allergies Allergy/AdvReac Type Severity Reaction Status Date / Time prednisone [PREDNISONE] Allergy Severe AGITATION Verified 06/08/20 14:11 Active Medications: Current Medications Generic Name Dose Route Start Last Admin Trade Name Freq PRN Reason Stop Dose Admin Acetaminophen 650 mg 07/26/20 16:17 Acetaminophen Supp 650 Mg Supp.Rect [place] Q6H PRN Pain, Mild (Pain Scale 1-3) Docusate Sodium 100 mg 07/26/20 21:00 07/27/20 09:05 Docusate Sodium 100 Mg Capsule PO Not Given BID KUMAR Hydromorphone HCl 0.25 mg 07/26/20 16:17 07/27/20 08:59 Hydromorphone Hcl 0.5 Mg/0.5 Ml Syringe IVPUSH 0.25 mg Q4H PRN Administration Pain, Severe (Pain Scale 7-10) Dextrose/Sodium Chloride 1,000 mls @ 100 mls/hr 07/26/20 16:17 07/27/20 04:48 D51/2ns IVCONT 100 mls/hr .Q10H KUMAR Administration Naloxone HCl 0.2 mg 07/26/20 16:17 Naloxone Hcl 0.4 Mg/Ml Vial IVPUSH Q2M PRN Excessive sedation or RR < 8 Ondansetron HCl 4 mg 07/26/20 16:17 Ondansetron Hcl 4 Mg/2 Ml Vial IVPUSH Q8H PRN Nausea and Vomiting Oxycodone HCl 10 mg 07/27/20 02:12 07/27/20 09:08 Oxycodone Hcl Immed Release 5 Mg Tablet PO 10 mg Q4H PRN Administration Pain, Moderate (Pain Scale 4-6 Sodium Chloride 3 ml 07/26/20 16:17 07/27/20 09:05 0.9 % Sodium Chloride Flush 3 Ml Syringe IVFLUSH Not Given QSHIFT [facility] Home Medications Medication Instructions Recorded Confirmed Last Taken Type albuterol sulfate 90 mcg/actuation 2 puff PO Q4-6H PRN 06/08/20 07/26/20 07/24/20 History aerosol inhaler alendronate 70 mg tablet 70 mg PO QWEEK 06/08/20 07/26/20 06/10/20 History baclofen 10 mg tablet 10 mg PO TID PRN 06/08/20 07/26/20 07/25/20 History bupropion HCl 150 mg 24 hr tablet, 150 mg PO BEDTIME 06/08/20 07/26/20 07/25/20 History extended release cholecalciferol (vitamin D3) 50 50 mcg PO QAM 06/08/20 07/26/20 07/25/20 History mcg (2,000 unit) capsule desmopressin 0.2 mg tablet 0.4 mg PO BEDTIME 06/08/20 07/26/20 07/25/20 History docusate sodium 100 mg capsule 100 mg PO BEDTIME PRN 06/08/20 07/26/20 07/25/20 History ferrous sulfate 325 mg (65 mg 325 mg PO BEDTIME 06/08/20 07/26/20 07/25/20 History iron) tablet fluticasone propionate 110 2 puff PO BID 06/08/20 07/26/20 Unknown History mcg/actuation HFA aerosol inhaler gabapentin 100 mg capsule 100 mg PO TID 06/08/20 07/26/20 07/25/20 History hydrochlorothiazide 25 mg tablet 25 mg PO QAM 06/08/20 07/26/20 07/24/20 History hydroxyzine pamoate 25 mg capsule 25 mg PO Q6H PRN 06/08/20 07/26/20 07/25/20 History melatonin 5 mg tablet 5 mg PO BEDTIME PRN 06/08/20 07/26/20 07/25/20 History meloxicam 7.5 mg tablet 7.5 mg PO DAILY 06/08/20 07/26/20 07/25/20 History montelukast 10 mg tablet 10 mg PO DAILY 06/08/20 07/26/20 Unknown History tramadol 50 mg tablet 50 mg PO Q12H PRN 06/08/20 07/26/20 07/25/20 History trazodone 150 mg tablet 300 mg PO BEDTIME 06/08/20 07/26/20 07/24/20 History Physical Exam Vital Signs: Vital Signs: Last Vital Signs Temp 97.9 F 07/27/20 07:00 Pulse 89 07/27/20 07:00 Resp 18 07/27/20 07:00 BP 122/50 L 07/27/20 07:00 Pulse Ox 92 07/27/20 07:00 Body Mass Index 39.4 Const: General: cooperative and no acute distress Orientation/consciousness: patient oriented x3 Resp: Effort & Inspection: normal respiratory effort and able to speak in complete sentences Cardio: Peripheral pulses: Peripheral pulses 2+ throughout Neuro: General: patient oriented x3 Extrem: Other: Right ankle skin intact there is some swelling over the lateral aspect of the ankle with tenderness. No open wounds or blisters. Peripheral pulses present neurovascularly intact. Left ankle significant swelling over the medial lateral aspect of the ankle with fracture blisters present no open wounds. She does have significant amount ecchymosis. Slight deformity to the ankle. No tenting of the skin. Neurovascularly intact. X-rays of the right ankle show a nondisplaced distal fibular fracture ankle mortise intact. Left ankle shows a bimalleolar fracture with description of the mortise. Results Labs Result Diagrams: 07/27/20 04:39 07/27/20 04:39 Labs: Abnormal lab results 07/26/20 07/26/20 07/26/20 Range/Units 13:59 14:05 14:05 WBC 11.5 H (4.8-10.8) X10*3/uL RBC 3.56 L (4.20-5.50) X10*6/uL Hgb 11.3 L (12.0-16.0) g/dl Hct 35.3 L (37-47) % MCV 99.2 H (80-98) fL MPV 8.7 L (9.4-12.3) fL Neut % (Auto) 88.1 H (45-73) % Lymph % (Auto) 7.5 L (20-40) % Lymph # (Auto) 0.9 L (1.2-4.9) X10*3/uL Abs Immat Gran (auto) 0.04 H (0.00-0.03) X10*3/uL Absolute Neuts (auto) 10.1 H (2.0-8.3) X10*3/uL Carbon Dioxide (22-29) mmol/L Anion Gap (12-20) BUN 8 L (9-16) mg/dL Fasting Glucose (60-99) mg/dL Calcium (8.4-10.2) mg/dL Urine Blood 1+ H (NEG) 07/27/20 07/27/20 Range/Units 04:39 04:39 WBC (4.8-10.8) X10*3/uL RBC 3.04 L (4.20-5.50) X10*6/uL Hgb 9.4 L (12.0-16.0) g/dl Hct 30.1 L (37-47) % MCV 99.0 H (80-98) fL MPV 9.0 L (9.4-12.3) fL Neut % (Auto) (45-73) % Lymph % (Auto) (20-40) % Lymph # (Auto) (1.2-4.9) X10*3/uL Abs Immat Gran (auto) (0.00-0.03) X10*3/uL Absolute Neuts (auto) (2.0-8.3) X10*3/uL Carbon Dioxide 31 H (22-29) mmol/L Anion Gap 9 L (12-20) BUN 7 L (9-16) mg/dL Fasting Glucose 121 H (60-99) mg/dL Calcium 8.1 L D (8.4-10.2) mg/dL Urine Blood (NEG) H & H 07/26/20 07/27/20 Range/Units 14:05 04:39 Hgb 11.3 L 9.4 L (12.0-16.0) g/dl Hct 35.3 L 30.1 L (37-47) % All other labs normal. Assessment and Plan (1) Bimalleolar ankle fracture: Qualifiers: Encounter type: initial encounter Fracture type: closed Laterality: left Qualified Code(s): S82.842A - Displaced bimalleolar fracture of left lower leg, initial encounter for closed fracture Status: Acute I discussed the case with Dr. Bowen. While the right ankle can be treated in a boot weight-bearing as tolerated the left ankle does need surgical fixation. Unfortunately because of the condition of her skin with the swelling and fracture blisters this does make her skin at more risk for wound complications. It would be ideal to have her swelling under control and the blisters resolve before proceeding. We will place her in a posterior splint well padded for the left ankle nonweightbearing. We will continue with skin skin checks and hopefully book her for operative fixation of the left ankle in the near future. (2) Ankle fracture, lateral malleolus, closed: Qualifiers: Encounter type: initial encounter Fracture alignment: nondisplaced Laterality: right Qualified Code(s): S82.64XA - Nondisplaced fracture of lateral malleolus of right fibula, initial encounter for closed fracture Status: Acute Procedures Date of Service Date of Service: 07/27/20
--- NOTE | 2020-07-27 12:02 | MHC.CM.PN ---
PATIENT LIVES ALONE. SHE IS INDEPENDENT WITH HER ADLS. NO DME, VNA, OR ELDER SERVICES IN THE HOME. SHE LIVES IN AN ELDER[facility] HOUSING COMPLEX ON THE [address] SHE USES AN ELEVATOR TO GET TO HER FLOOR. PRIOR TO THIS FALL, PATIENT ALSO DRIVES HERSELF WHERE NEEDED. PATIENT IS AWARE OF THE NEED FOR STR REFERRALS AND AGREES TO CONTRACTED FACILITIES. [facility] IS ONE OF THESE FACILITIES. [facility] REFERRAL PLACED WELL (ALTHOUGH IT IS UNCLEAR TO THIS BPM ANALYST IF FACILITY IS CONTRACTED). NO HCP ON FILE BUT PATIENT IS ABLE TO COMPLETE ONE. IMM 07/27 IN CHART
[2020-07-27] MEDS: Cholecalciferol (Vitamin D3) 25 MCG TABLET 50 MCG PO (12:45)
[2020-07-27] MEDS: hydroCHLOROthiazide 25 MG TABLET PO (12:46)
[2020-07-27] MEDS: Gabapentin 100 MG CAPSULE PO ×2 (14:29→20:14)
[2020-07-27] MEDS: traZODone HCL 50 MG TABLET 150 MG PO (20:12)
[2020-07-27] MEDS: buPROPion HCl XL 150 MG TAB.ER.24H PO (20:13)
[2020-07-27] MEDS: Desmopressin Acetate 0.2 MG TABLET 0.4 MG PO (20:13)
[2020-07-27] MEDS: Docusate Sodium 100 MG CAPSULE PO (20:13)
[2020-07-27] MEDS: Ferrous Sulfate 324 MG TABLET.DR PO (20:14)
[2020-07-28] VITALS (7 sets, daily range): BP systolic 131–152; BP diastolic 59–89; PULSE 100–108; RESP 18–20; TEMP 35.5–36.8; O2SAT 92–98
[2020-07-28] MEDS: HYDROmorphone HCl 0.5 MG/0.5 ML SYRINGE 0.25 MG IVPUSH ×2 (00:13→05:49)
[2020-07-28] MEDS: Dextrose 5 % and 0.45 % NaCl 1,000 ML 100 ML IVCONT (00:16)
[2020-07-28 07:05] LABS: Anion Gap 9 (12-20); Blood Urea Nitrogen 7 mg/dL (9-16); Carbon Dioxide 31 mmol/L (22-29); Chloride 97 mmol/L (96-108); Creatinine Clr Calc Pharmacy 63.8; Estimated Glomerular Filt Rate > 60; Glucose Fasting 108 mg/dL (60-99); Potassium 3.6 mmol/L (3.3-5.1); Sodium 133 mmol/L (135-145)
--- NOTE | 2020-07-28 07:30 | P.PNOP_ITS ---
Subjective Subjective Date of Service: 07/28/20 Interval history: Patient resting comfortably in bed. Pain is well managed. She attempted to get out of bed with PT 3x yesterday but was unable to do so. She will continue to work with PT today. No overnight events. No additional complaints. Physical Exam Vital Signs: Vital Signs: Last Vital Signs Temp 96 F L 07/28/20 06:58 Pulse 101 H 07/28/20 06:58 Resp 20 07/28/20 06:58 BP 152/59 H 07/28/20 06:58 Pulse Ox 94 07/28/20 06:58 Body Mass Index 39.4 Const: General: cooperative, healthy appearing and no acute distress Resp: Effort & Inspection: normal respiratory effort and able to speak in complete sentences Cardio: Rate: regular rate Peripheral pulses: Peripheral pulses 2+ throughout GI: Palpation (GI): Soft to palpation Skin: Lesions: no lesions Rashes: no rashes Extrem: Other: Left lower extremity able to flex and extend all digits in the splint. Splint is clean, dry, and intact. Sensation intact. Right lower extremity NVI, boot remains intact and on at all times. Sensation in tact. Pedal pulse intact. Progress Note: A&P Assessment and plan (1) Bimalleolar ankle fracture: Status: Acute Assessment and Plan: While the right ankle can be treated in a boot weight-bearing as tolerated the left ankle does need surgical fixation. Unfortunately because of the condition of her skin with the swelling and fracture blisters this does make her skin at more risk for wound complications. It would be ideal to have her swelling under control and the blisters resolve before proceeding. She will remain in the posterior splint well padded for the left ankle nonweightbearing. We will continue with skin skin checks and hopefully book her for operative fixation of the left ankle in the near future. Right ankle she may be weightbearing as tolerated in the boot at all times. Plan for d/c once rehab is secured by johanne delacruz. Fall Risk Details Current Medications: Current Medications Generic Name Dose Route Start Last Admin Trade Name Freq PRN Reason Stop Dose Admin Acetaminophen 650 mg 07/26/20 16:17 Acetaminophen Supp 650 Mg Supp.Rect [place] Q6H PRN Pain, Mild (Pain Scale 1-3) Albuterol Sulfate 2 puff 07/27/20 10:44 Albuterol Sulfate 90 Mcg 8 Gm Inhaler INHALE Q4H PRN Wheezing Bupropion HCl 150 mg 07/27/20 21:00 07/27/20 20:13 Bupropion Hcl Xl 150 Mg Tab.Er.24h PO 150 mg BEDTIME KUMAR Administration Desmopressin Acetate 0.4 mg 07/27/20 21:00 07/27/20 20:13 Desmopressin Acetate 0.2 Mg Tablet PO 0.4 mg BEDTIME KUMAR Administration Docusate Sodium 100 mg 07/26/20 21:00 07/27/20 20:13 Docusate Sodium 100 Mg Capsule PO 100 mg BID KUMAR Administration Docusate Sodium 100 mg 07/27/20 10:44 Docusate Sodium 100 Mg Capsule PO BEDTIME PRN constipation Ferrous Sulfate 324 mg 07/27/20 21:00 07/27/20 20:14 Ferrous Sulfate 324 Mg Tablet.Dr PO 324 mg BEDTIME KUMAR Administration Fluticasone Propionate 2 puff 07/27/20 20:00 07/27/20 20:03 Fluticasone Propionate 100 Mcg Blst.W.Dev INHALE Not Given RBID KUMAR Gabapentin 100 mg 07/27/20 15:00 07/27/20 20:14 Gabapentin 100 Mg Capsule PO 100 mg TID KUMAR Administration Hydrochlorothiazide 25 mg 07/27/20 10:45 07/27/20 12:46 Hydrochlorothiazide 25 Mg Tablet PO 25 mg DAILY KUMAR Administration Protocol Hydromorphone HCl 0.25 mg 07/26/20 16:17 07/28/20 05:49 Hydromorphone Hcl 0.5 Mg/0.5 Ml Syringe IVPUSH 0.25 mg Q4H PRN Administration Pain, Severe (Pain Scale 7-10) Dextrose/Sodium Chloride 1,000 mls @ 100 mls/hr 07/26/20 16:17 07/28/20 00:16 D51/2ns IVCONT 100 mls/hr .Q10H KUMAR Administration Montelukast Sodium 10 mg 07/28/20 09:00 Montelukast Sodium 10 Mg Tablet PO DAILY KUMAR Naloxone HCl 0.2 mg 07/26/20 16:17 Naloxone Hcl 0.4 Mg/Ml Vial IVPUSH Q2M PRN Excessive sedation or RR < 8 Ondansetron HCl 4 mg 07/26/20 16:17 Ondansetron Hcl 4 Mg/2 Ml Vial IVPUSH Q8H PRN Nausea and Vomiting Oxycodone HCl 10 mg 07/27/20 02:12 07/27/20 20:11 Oxycodone Hcl Immed Release 5 Mg Tablet PO 10 mg Q4H PRN Administration Pain, Moderate (Pain Scale 4-6 Sodium Chloride 3 ml 07/26/20 16:17 07/28/20 00:31 0.9 % Sodium Chloride Flush 3 Ml Syringe IVFLUSH Not Given QSHIFT KUMAR Trazodone HCl 150 mg 07/27/20 21:00 07/27/20 20:12 Trazodone Hcl 50 Mg Tablet PO 150 mg BEDTIME KUMAR Administration Vitamin D 50 mcg 07/27/20 10:45 07/27/20 12:45 Cholecalciferol (Vitamin D3) 25 Mcg Tablet PO 50 mcg DAILY KUMAR Administration Time Spent With Patient Time: Total time spent is greater than 50% in coordination of care (as documented) at patient's floor/unit and/or counseling patient: Time with patient: less than 15 minutes Procedures Date of Service Date of Service: 07/28/20
[2020-07-28] MEDS: Fluticasone Propionate 100 MCG BLST.W.DEV 2 PUFF INHALE (07:42)
[2020-07-28] MEDS: Cholecalciferol (Vitamin D3) 25 MCG TABLET 50 MCG PO (08:50)
[2020-07-28] MEDS: Gabapentin 100 MG CAPSULE PO (08:50)
[2020-07-28] MEDS: hydroCHLOROthiazide 25 MG TABLET PO (08:50)
[2020-07-28] MEDS: Montelukast Sodium 10 MG TABLET PO (08:50)
[2020-07-28] MEDS: Docusate Sodium 100 MG CAPSULE PO (08:51)
[2020-07-28] MEDS: oxyCODONE HCl Immed Release 5 MG TABLET 10 MG PO ×2 (08:51→14:00)
--- NOTE | 2020-07-28 09:54 | PM.DS ---
DS: Providers Provider Date of Service: 07/28/20 Date of admission: 07/26/20 15:28 Primary care physician: Vivian Massey DO Consults: 07/26/20 16:17 Consult to Hospitalist Routine Consulting Provider: Hospitalist Reason For Exam: Pre op clerance DS: Diagnosis Discharge Diagnosis (1) Bimalleolar ankle fracture: Status: Acute Problem details: Ms. Whitehead is a 70-year-old female who presented to the emergency room on 07/26/2020 after sustaining a fall at home. She states that she was trying to walk to her bathroom when both of her legs gave out twisting and falling onto her left ankle. X-rays were obtained in the ED which revealed a left ankle by malleolar fracture and a right ankle distal fibular fracture. She was admitted to the hospital on the Orthopedic Service. A left posterior splint was placed on the left lower extremity bimalleolar fracture with the patient will remain nonweightbearing. On the right lower extremity a tall walking boot was placed for a distal fibular fracture where the patient may weight bear as tolerated. Due to a large fracture blister formation on the medial aspect of the left ankle along with smaller multiple fracture blisters on the lateral aspect of the ankle surgery is postponed at this time until skin can heal. DS: Medications Discharge Medications Home Medications: Home Medications Medication Instructions Recorded Confirmed albuterol sulfate 90 mcg/actuation 2 puff PO Q4-6H PRN 06/08/20 07/26/20 aerosol inhaler baclofen 10 mg tablet 10 mg PO TID PRN 06/08/20 07/26/20 bupropion HCl 150 mg 24 hr tablet, 150 mg PO BEDTIME 06/08/20 07/26/20 extended release cholecalciferol (vitamin D3) 50 50 mcg PO QAM 06/08/20 07/26/20 mcg (2,000 unit) capsule desmopressin 0.2 mg tablet 0.4 mg PO BEDTIME 06/08/20 07/26/20 docusate sodium 100 mg capsule 100 mg PO BEDTIME PRN 06/08/20 07/26/20 ferrous sulfate 325 mg (65 mg 325 mg PO BEDTIME 06/08/20 07/26/20 iron) tablet fluticasone propionate 110 2 puff PO BID 06/08/20 07/26/20 mcg/actuation HFA aerosol inhaler gabapentin 100 mg capsule 100 mg PO TID 06/08/20 07/26/20 hydrochlorothiazide 25 mg tablet 25 mg PO QAM 06/08/20 07/26/20 melatonin 5 mg tablet 5 mg PO BEDTIME PRN 06/08/20 07/26/20 meloxicam 7.5 mg tablet 7.5 mg PO DAILY 06/08/20 07/26/20 montelukast 10 mg tablet 10 mg PO DAILY 06/08/20 07/26/20 tramadol 50 mg tablet 50 mg PO Q12H PRN 06/08/20 07/26/20 trazodone 150 mg tablet 150 mg PO BEDTIME 06/08/20 07/27/20 DS: Summary Hospital Course Hospital Course: The patient was admitted to the [facility] floor. A posterior splint was placed on the left ankle with instructions of nonweightbearing. A tall walking boot was placed on the right lower extremity where she may weight bear as tolerated. The patient attempted to work with physical therapy to work on transfers and getting out of bed. A large fracture blister has formed on the medial aspect of the left ankle as well as multiple smaller fracture blisters on the lateral aspect of the left ankle. These fracture blisters have resulted in postponement of surgical fixation of the left ankle until skin can heal. Time Spent with Patient Time attestation: Total time spent providing and/or coordinating discharge services: Discharge coordination time: Greater than 30 minutes (30mins) Quality: Stroke Does the patient have a stroke diagnosis?: No Physical Exam Vital Signs: Vital Signs: Last Vital Signs Temp 96 F L 07/28/20 06:58 Pulse 100 07/28/20 07:47 Resp 20 07/28/20 06:58 BP 152/59 H 07/28/20 06:58 Pulse Ox 94 07/28/20 06:58 Body Mass Index 39.4 Const: General: cooperative, healthy appearing and no acute distress Resp: Effort & Inspection: normal respiratory effort and able to speak in complete sentences Cardio: Rate: regular rate Peripheral pulses: Peripheral pulses 2+ throughout GI: Palpation (GI): Soft to palpation Skin: Lesions: no lesions Rashes: no rashes Extrem: Other: Right ankle skin intact there is some swelling over the lateral aspect of the ankle with tenderness. No open wounds or blisters. Peripheral pulses present neurovascularly intact. Left ankle significant swelling over the medial lateral aspect of the ankle with fracture blisters present no open wounds. She does have significant amount ecchymosis. Slight deformity to the ankle. No tenting of the skin. Neurovascularly intact. X-rays of the right ankle show a nondisplaced distal fibular fracture ankle mortise intact. Left ankle shows a bimalleolar fracture with description of the mortise. DS: Data Data Completed and Pending Labs on day of discharge: Laboratory Results - last 24 hr 07/28/20 05:56 Sodium 133 L Potassium 3.6 Chloride 97 Carbon Dioxide 31 H Anion Gap 9 L BUN 7 L Creatinine 0.77 Estim Creat Clear Calc 63.8 Estimated GFR > 60 Fasting Glucose 108 H Calcium 8.0 L Discharge Plan Discharge Patient Disposition: [facility] Discharge Diagnosis: left ankle bimalleolar fracture Right ankle distal fibular fracture Referrals: [facility] [Outside] - 1 Week Vivian Massey DO [Primary Care Provider] - 1 Week Discharge Medications: No Action albuterol sulfate 90 mcg/actuation HFA aerosol inhaler 2 puff PO Q4-6H PRN (Reason: Wheezing) RF: 0 Flovent HFA 110 mcg/actuation HFA aerosol inhaler 2 puff PO BID RF: 0 baclofen 10 mg tablet 10 mg PO TID PRN (Reason: muscle spasm) RF: 0 desmopressin 0.2 mg tablet 0.4 mg PO BEDTIME RF: 0 ferrous sulfate 325 mg (65 mg iron) tablet 325 mg PO BEDTIME RF: 0 hydrochlorothiazide 25 mg tablet 25 mg PO QAM RF: 0 gabapentin 100 mg capsule 100 mg PO TID RF: 0 montelukast 10 mg tablet 10 mg PO DAILY RF: 0 melatonin 5 mg tablet 5 mg PO BEDTIME PRN (Reason: insomnia) RF: 0 tramadol 50 mg tablet 50 mg PO Q12H PRN (Reason: severe pain) RF: 0 cholecalciferol (vitamin D3) 50 mcg (2,000 unit) capsule 50 mcg PO QAM RF: 0 bupropion HCl 150 mg tablet extended release 24 hr 150 mg PO BEDTIME RF: 0 docusate sodium 100 mg capsule 100 mg PO BEDTIME PRN (Reason: constipation) RF: 0 trazodone 150 mg tablet 150 mg PO BEDTIME RF: 0 meloxicam 7.5 mg tablet 7.5 mg PO DAILY RF: 0 Discharge Orders: Discharge Order (Routine); Ordered 07/28/20 Ordered By: Eri Reid Activity on Discharge: NWB LLE Stand Alone Forms: Patient Portal Discharge page Care Plan Goals: bilateral ankle fractures. Right ankle plan for surgical fixation to restore fxn once skin is healed. Health Concerns: None Plan of Treatment: LLE NWB, keep splint clean, dry, and intact. Left ankle plan for surgery once skin is healed Patient will followup in clinic outpatient on Monday07/31/20 for skin check and furthur surgical planning. RLE WBAT in boot, remain in boot at all times. Assessment: Patient is in stable condition RLL WBAT LLE NWB
--- NOTE | 2020-07-28 09:58 | MHC.CM.PN ---
PATIENT WILL [place] [facility]. [facility] TO PROVIDE TRANSPORT. PATIENT IS AWARE, AND [facility] WAS HER FIRST CHOICE OF FACILITY. CASE MANAGEMENT TO ESTABLISH A TIME WITH THE RN FOLLOWING RECEIPT OF DC SUMMARY.
--- NOTE | 2020-07-28 10:04 | W.MHC.F2F ---
Service Date Service Date: 07/28/20 Reasons for Services Reason for physical therapy: home safety and mobility, therapeutic exercises, restore joint function, gait/transfer training, assess need for DME and ADL training Reason for occupational therapy: home safety and mobility, therapeutic exercises, restore joint function, gait/transfer training, assess need for DME and ADL training Homebound: Leaving the home is medically contraindicated at this time without the asist of a device and/or another person due th the listed conditions above and below. Reason homebound: unsteady gait / fall risk, leg weakness, bedbound/chairbound, pain with ambulation, pain with transfers, poor balance / fall risk, non-weight bearing and unable to drive Homebound supporting statement: Pt. is considered homebound due to recent surgery. Unable to drive, poor balance, poor gait mechanics. Certification: Based on the above findings, I certify that this patient is confined to the home and needs intermittent senior care care, physical therapy and/or speech therapy, or continues to need occupational therapy. The patient is under my care, and I have initiated the establishment of the plan of care. The patient will be followed by a physician who will periodically review the plan of care.
--- NOTE | 2020-07-28 11:23 | MHC.CM.PN ---
[facility]00 [facility] TRANPORT TO [facility] [place]. RN, PATIENT, AND UNIT AWARE OF PLAN.
--- NOTE | 2020-07-28 14:55 | HO.PM.IMPN ---
Subjective Subjective Date of Service: 07/28/20 Interval History: ANKLE FX Review of Systems Patient still seems to have ankle pain, denies chest pain or shortness of breath or abdominal pain or fever or chills or nausea or vomiting. Physical Exam Vital Signs: Vital Signs: Last Vital Signs Temp 96 F L 07/28/20 10:57 Pulse 100 07/28/20 10:57 Resp 20 07/28/20 10:57 BP 131/89 07/28/20 10:57 Pulse Ox 98 07/28/20 10:57 Body Mass Index 39.4 Physical exam: Constitutional: Appearing in no acute distress Lungs: lung sounds clear b/l , no rales or wheezin Cvs: heart regular rate rhythm, clear S1, S2 abd:positive bowel sounds, abdomen is soft, nontender neuro: patient is alert x3, no focal deficits MSK: right ankle -mild swelling, pulses present. left ankle: has eccymosis/swellin Objective Data Labs CBC & Chem 7: 07/27/20 04:39 07/28/20 05:56 Assessment and Plan (1) Bimalleolar ankle fracture: Problem details: Ms. Whitehead is a 70-year-old female who presented to the emergency room on 07/26/2020 after sustaining a fall at home. She states that she was trying to walk to her bathroom when both of her legs gave out twisting and falling onto her left ankle. X-rays were obtained in the ED which revealed a left ankle by malleolar fracture and a right ankle distal fibular fracture. She was admitted to the hospital on the Orthopedic Service. A left posterior splint was placed on the left lower extremity bimalleolar fracture with the patient will remain nonweightbearing. On the right lower extremity a tall walking boot was placed for a distal fibular fracture where the patient may weight bear as tolerated. Due to a large fracture blister formation on the medial aspect of the left ankle along with smaller multiple fracture blisters on the lateral aspect of the ankle surgery is postponed at this time until skin can heal. Status: Acute Assessment and Plan: 70 year old women admitted by orthopedic surgery for ankle fracture secondary to a fall at home. According to the [employer] surgical risk calculator, the patient is at below average risk for briana/postoperative complications post moderate risk ankle surgery. 1.Bimalleolar ankle fracture. Possible transfer to rehab and then surgical intervention outpatient -Management as per surgical team -Pain management 2.? orthostatic Hypotension. No syncope but dizziness after standing from bed as per staff orthostasis seems negative . patient is asymptomatic 3.Hypertension. Elevated blood pressure improving -Continue HCTZ and Lisinopril. 4.Asthma-Albuterol as needed 5.HLD-Hold asa and statin for now 6.Depression-Continue home medications plan is for rehab placement.
== END 2020-07-28 14:10 | disposition skilled nursing facility (03) | DRG 563 ==
LOC: HO.ED 16:01 → HO.EDOVER 21:08 → HO.S3 21:54
PROVIDERS: Physician Assistant; Admitting Provider Physician Assistant; Emergency Provider Emergency Medicine; PCP Internal Medicine; Visit Provider Physician Assistant
DX: S82.842A Displaced bimalleolar fracture of left lower leg, initial encounter for closed fracture (principal); S82.64XA Nondisplaced fracture of lateral malleolus of right fibula, initial encounter for closed fracture; E78.5 Hyperlipidemia, unspecified; W18.30XA Fall on same level, unspecified, initial encounter; Y93.9 Activity, unspecified; Y92.003 Bedroom of unspecified non-institutional (private) residence as the place of occurrence of the external cause; Y99.9 Unspecified external cause status; I95.1 Orthostatic hypotension; F32.9 Major depressive disorder, single episode, unspecified; J45.909 Unspecified asthma, uncomplicated; Z87.891 Personal history of nicotine dependence; Z20.822 Contact with and (suspected) exposure to COVID-19; Z79.51 Long term (current) use of inhaled steroids; Z79.899 Other long term (current) drug therapy
CPT/HCPCS: 36415; 71045; 73610; 80048; 81001; 82550; 84484; 85025; 87635; 93005; 97110; 97163; 97167; 99218; 99285; J1170; J2270

== ENCOUNTER → 2020-08-03 12:58 | Outpatient (BNVA) | payer MEDICARE, OTHER, SELFPAY | PROVIDERS: Visit Provider Physician Assistant | DX: S82.842A Displaced bimalleolar fracture of left lower leg, initial encounter for closed fracture (principal); S82.64XA Nondisplaced fracture of lateral malleolus of right fibula, initial encounter for closed fracture; S90.522A Blister (nonthermal), left ankle, initial encounter | CPT/HCPCS: 10160; 99202 ==

== ENCOUNTER → 2020-08-11 15:41 | Outpatient (BNVA) | payer MEDICARE, OTHER, SELFPAY | PROVIDERS: Visit Provider Physician Assistant | DX: S82.842D Displaced bimalleolar fracture of left lower leg, subsequent encounter for closed fracture with routine healing (principal); S82.64XD Nondisplaced fracture of lateral malleolus of right fibula, subsequent encounter for closed fracture with routine healing | CPT/HCPCS: 29515; 99212 ==

== ENCOUNTER 2020-08-12 10:25 | Day surgery (SDC) | payer MEDICARE, OTHER, SELFPAY ==
--- NOTE | 2020-08-11 13:15 | HO.ANESPROP2 ---
Documented by User: Ayla Hendricks 08/11/20 13:19 HPI - Anesthesia Eval Consult details Narrative: 70yo F for Left Ankle Fracture ORIF PMFSH Active Problems Active Problems: All Active Problems (Updated 08/05/20 @ 00:01 by Stefanie Cedeno) Bimalleolar ankle fracture (Acute) Ankle fracture, lateral malleolus, closed (Acute) Renal calculi (Acute) Osteoporosis (Acute) Insomnia (Acute) Depression (Acute) Hypovitaminosis D (Acute) Constipation by delayed colonic transit (Acute) Iron deficiency anemia (Acute) Essential hypertension (Acute) Moderate asthma (Acute) Dyslipidemia (Acute) Past Medical History Medical History Constipation by delayed colonic transit Depression Dyslipidemia Essential hypertension Fall Hypovitaminosis D Insomnia Iron deficiency anemia Moderate asthma Osteoporosis Renal calculi Family History Family History Father No problems noted. Mother Breast cancer Sister Diabetes Heart attack Maternal Grandmother Brain cancer Surgical History Surgical History H/O: section Hx of breast reduction, elective Hx of laparoscopic gastric banding Social History Social History Household Members: None Housing: Apartment Do you presently have visiting nurse or other home services: No Alcohol intake: never Patient Tobacco Use Status: Former Tobacco user Use of substances other than those prescribed or required for medical reasons: No Are you DNR?: No Advance Directives: No Advance Directives Information Provided: Yes service: No Current occupational status: unemployed Meds Allergies Allergy/AdvReac Type Severity Reaction Status Date / Time prednisone [PREDNISONE] Allergy Severe AGITATION Verified 08/12/20 10:41 Home Medications Medication Instructions Recorded Confirmed Last Taken Type albuterol sulfate 90 mcg/actuation 2 puff PO Q4-6H PRN 06/08/20 07/26/20 07/24/20 History aerosol inhaler baclofen 10 mg tablet 10 mg PO TID PRN 06/08/20 07/26/20 07/25/20 History bupropion HCl 150 mg 24 hr tablet, 150 mg PO BEDTIME 06/08/20 07/26/20 07/25/20 History extended release cholecalciferol (vitamin D3) 50 50 mcg PO QAM 06/08/20 07/26/20 07/25/20 History mcg (2,000 unit) capsule desmopressin 0.2 mg tablet 0.4 mg PO BEDTIME 06/08/20 07/26/20 07/25/20 History docusate sodium 100 mg capsule 100 mg PO BEDTIME PRN 06/08/20 07/26/20 07/25/20 History ferrous sulfate 325 mg (65 mg 325 mg PO BEDTIME 06/08/20 07/26/20 07/25/20 History iron) tablet fluticasone propionate 110 2 puff PO BID 06/08/20 07/26/20 Unknown History mcg/actuation HFA aerosol inhaler gabapentin 100 mg capsule 100 mg PO TID 06/08/20 07/26/20 07/25/20 History hydrochlorothiazide 25 mg tablet 25 mg PO QAM 06/08/20 07/26/20 07/24/20 History melatonin 5 mg tablet 5 mg PO BEDTIME PRN 06/08/20 07/26/20 07/25/20 History montelukast 10 mg tablet 10 mg PO DAILY 06/08/20 07/26/20 Unknown History trazodone 150 mg tablet 150 mg PO BEDTIME 06/08/20 07/27/20 07/24/20 History rosuvastatin 10 mg tablet 10 mg PO BEDTIME 08/11/20 Unknown History Exam Exam Date and Time: August 11, 2020 1315 Pertinent Lab Results Pertinent Lab Results: Laboratory Tests 07/27/20 07/28/20 04:39 05:56 WBC 6.0 Hgb 9.4 L Hct 30.1 L Plt Count 224 Sodium 133 L Potassium 3.6 Chloride 97 Carbon Dioxide 31 H BUN 7 L Creatinine 0.77 Narrative Narrative: EKG 06/2020 Vent. Rate : 070 BPM Atrial Rate : 070 BPM P-R Int : 158 ms QRS Dur : 084 ms QT Int : 392 ms P-R-T Axes : 062 -18 002 degrees QTc Int : 423 ms Normal sinus rhythm Nonspecific ST abnormality Abnormal ECG When compared with ECG of 10-JUL-2020 16:28, No significant change was found Assessment and Plan Assessment Anesthesia Assessment: Chart Reviewed Documented by User: Rhoda Guillermo 08/12/20 12:50 [facility] Past Medical History Medical History Constipation by delayed colonic transit Depression Dyslipidemia Essential hypertension Fall Hypovitaminosis D Insomnia Iron deficiency anemia Moderate asthma Osteoporosis Renal calculi Family History Family History Father No problems noted. Mother Breast cancer Sister Diabetes Heart attack Maternal Grandmother Brain cancer Surgical History Surgical History H/O: section Hx of breast reduction, elective Hx of laparoscopic gastric banding Social History Social History Household Members: None Housing: Apartment Do you presently have visiting nurse or other home services: No Alcohol intake: never Patient Tobacco Use Status: Former Tobacco user Use of substances other than those prescribed or required for medical reasons: No Are you DNR?: No Advance Directives: No Advance Directives Information Provided: Yes service: No Current occupational status: unemployed Meds Allergies Allergy/AdvReac Type Severity Reaction Status Date / Time prednisone [PREDNISONE] Allergy Severe AGITATION Verified 08/12/20 10:41 Home Medications Medication Instructions Recorded Confirmed Last Taken Type albuterol sulfate 90 mcg/actuation 2 puff PO Q4-6H PRN 06/08/20 07/26/20 07/24/20 History aerosol inhaler baclofen 10 mg tablet 10 mg PO TID PRN 06/08/20 07/26/20 07/25/20 History bupropion HCl 150 mg 24 hr tablet, 150 mg PO BEDTIME 06/08/20 07/26/20 07/25/20 History extended release cholecalciferol (vitamin D3) 50 50 mcg PO QAM 06/08/20 07/26/20 07/25/20 History mcg (2,000 unit) capsule desmopressin 0.2 mg tablet 0.4 mg PO BEDTIME 06/08/20 07/26/20 07/25/20 History docusate sodium 100 mg capsule 100 mg PO BEDTIME PRN 06/08/20 07/26/20 07/25/20 History ferrous sulfate 325 mg (65 mg 325 mg PO BEDTIME 06/08/20 07/26/20 07/25/20 History iron) tablet fluticasone propionate 110 2 puff PO BID 06/08/20 07/26/20 Unknown History mcg/actuation HFA aerosol inhaler gabapentin 100 mg capsule 100 mg PO TID 06/08/20 07/26/20 07/25/20 History hydrochlorothiazide 25 mg tablet 25 mg PO QAM 06/08/20 07/26/20 07/24/20 History melatonin 5 mg tablet 5 mg PO BEDTIME PRN 06/08/20 07/26/20 07/25/20 History montelukast 10 mg tablet 10 mg PO DAILY 06/08/20 07/26/20 Unknown History trazodone 150 mg tablet 150 mg PO BEDTIME 06/08/20 07/27/20 07/24/20 History rosuvastatin 10 mg tablet 10 mg PO BEDTIME 08/11/20 Unknown History Exam Airway Mallampati Class: II TM Dist: >3cm Neck ROM: Full Loose/Missing/Broken Teeth: No Heart: RRR Lungs: CTA Assessment and Plan Assessment Anesthesia Assessment: Anesthesia Plan Discussed and Chart Reviewed Final Anesthetic Review NPO: Yes ASA Class: II Final Preanesthetic Review: Meds/Allgs Chart Reviewed, Consent Obtained/Reviewed and Anes Risks/Benef Reviewed Patient Risk: Low Procedure Risk: Low Anesthetic Plan Anesthetic Plan: GA Disposition: Standard PACU
[2020-08-12] VITALS (17 sets, daily range): BP systolic 96–160; BP diastolic 51–120; PULSE 83–118; RESP 12–20; TEMP 35.9–37.1; O2SAT 95–100; BMI 39.4
--- NOTE | ~2020-08-12 | FL_ITS ---
EXAMINATION: XR FLUOROSCOPY WITH IMAGES CLINICAL INFORMATION: Fracture left ankle COMPARISON: Radiographs left ankle 07/26/2020 TECHNIQUE: Fluoroscopy performed by Dr. Narendra Bowen. Fluoroscopy time: 2.4 minutes DAP: 114.85 mGycm2 Images: 3 FINDINGS: Bimalleolar fracture left ankle are reduced with 2 screws medial side and lateral side compression plate with multiple screws. The hardware is intact. The fracture fragments are in near-anatomic alignment. Ankle mortise appears symmetric. FL/FL guidance in OR IMPRESSION: Status post reduction internal fixation left ankle fractures.
[2020-08-12] MEDS: Lactated Ringers 1,000 ML 100 ML IVCONT (11:05)
--- NOTE | 2020-08-12 12:03 | MHC.SHP ---
Pre-Procedural Eval Section A The patient is an INPATIENT: No Changes since office visit: Yes Patient answered all questions; No Cold of Flu in the past 2 weeks, No New Medical Problems and No Changes in Medication The History & Physical has been completed within 30 days and I have reviewed it.: Yes Section B Chief Complaint: displaced bimalleolar fx Allergies: Allergies Allergy/AdvReac Type Severity Reaction Status Date / Time prednisone [PREDNISONE] Allergy Severe AGITATION Verified 08/12/20 10:41 Plan I have reviewed the history and physical and performed a pertinent physical examination on my patient. No changes have occurred unless specified.
[2020-08-12] MEDS: ceFAZolin Sodium/Dextrose,Iso 2 GM/50 ML PIGGYBACK IV ×2 (12:25→18:23)
--- NOTE | 2020-08-12 15:33 | PM.OP ---
Brief Operative Note Date of Service: 08/12/20 Pre-op diagnosis: left bimalleolar ankle fracture Post-op diagnosis: same Procedure: ORIF left bimalleolar ankle fracture Implants: Roxton lateral locing plate and 2 46 mm 4.0 cannulated partially threaded screws Surgeon: Narendra Bowen MD Anesthesia: GETA Was an Cardiac Catheterization Technician used for this Procedure?: Yes Cardiac Catheterization Technician: Eri Reid Estimated blood loss (mL): 150 Tourniquet time (min): 60 IV fluids (mL): 1,000 Pathology: none sent Condition: stable Disposition: PACU
[2020-08-12] MEDS: oxyCODONE HCl Immed Release 5 MG TABLET PO (15:38)
[2020-08-12] MEDS: Acetaminophen 325 MG TABLET 650 MG PO (15:38)
[2020-08-12] MEDS: fentaNYL citrate/PF 100 MCG/2 ML VIAL 50 MCG IVPUSH ×2 (15:39→16:00)
[2020-08-12] MEDS: 0.9 % Sodium Chloride Flush 3 ML SYRINGE IVFLUSH (18:23)
[2020-08-12] MEDS: Dextrose 5 % and 0.45 % NaCl 1,000 ML 80 ML IVCONT (18:23)
[2020-08-12] MEDS: Docusate Sodium 100 MG CAPSULE PO (20:35)
[2020-08-12] MEDS: traZODone HCL 100 MG TABLET PO (21:17)
[2020-08-13] VITALS (7 sets, daily range): BP systolic 88–128; BP diastolic 45–67; PULSE 86–97; RESP 16–96; TEMP 36–36.8; O2SAT 93–97
[2020-08-13] MEDS: Acetaminophen 325 MG TABLET 650 MG PO ×2 (00:15→09:44)
[2020-08-13] MEDS: oxyCODONE HCl Immed Release 5 MG TABLET PO ×3 (02:34→20:34)
[2020-08-13] MEDS: buPROPion HCl XL 150 MG TAB.ER.24H PO ×2 (03:22→20:34)
[2020-08-13] MEDS: Gabapentin 100 MG CAPSULE PO ×4 (03:22→20:35)
[2020-08-13] MEDS: Desmopressin Acetate 0.2 MG TABLET 0.4 MG PO ×2 (03:22→20:34)
[2020-08-13] MEDS: Dextrose 5 % and 0.45 % NaCl 1,000 ML 80 ML IVCONT (04:02)
[2020-08-13 06:25] LABS: MANUAL DIFF FLAG NO
[2020-08-13 06:49] LABS: Basophils Percent Auto 0.1 % (0-2); Hematocrit 25.4 % (37-47); Hemoglobin 8.1 g/dl (12.0-16.0); Imm Gran Abs Auto 0.02 X10*3/uL (0.00-0.03); Imm Gran Pct Auto 0.2 % (0.0-0.4); Lymphocytes Absolute Auto 1.4 X10*3/uL (1.2-4.9); Lymphocytes Percent Auto 15.6 % (20-40); Mean Corpuscular HGB Conc 31.9 g/dl (31.0-35.0); Mean Corpuscular Volume 97.3 fL (80-98); Mean Platelet Volume 8.8 fL (9.4-12.3); Monocytes Absolute Auto 0.6 X10*3/uL (0.1-1.2); Monocytes Percent Auto 6.9 % (2-11); Neutrophils Absolute Auto 6.7 X10*3/uL (2.0-8.3); Neutrophils Percent Auto 77.2 % (45-73); Platelet Count 359 X10*3/uL (160-400); Red Blood Count 2.61 X10*6/uL (4.20-5.50); Red Cell Distribution Width 14.3 % (11.0-16.0); White Blood Count 8.7 X10*3/uL (4.8-10.8)
[2020-08-13 06:55] LABS: Anion Gap 10 (12-20); Blood Urea Nitrogen 15 mg/dL (9-16); Calcium 8.5 mg/dL (8.4-10.2); Carbon Dioxide 30 mmol/L (22-29); Chloride 101 mmol/L (96-108); Creatinine Clr Calc Pharmacy 63.8; Estimated Glomerular Filt Rate > 60; Glucose Fasting 115 mg/dL (60-99); Potassium 4.9 mmol/L (3.3-5.1); Sodium 136 mmol/L (135-145)
--- NOTE | 2020-08-13 07:39 | PM.PNORT ---
Subjective Subjective Date of Service: 08/13/20 Interval history: POD! s/p left ankle ORIF with Dr. Bowen. Patient is resting comfortably in bed. Pain is well managed. No overnight events. No additional complaints. Physical Exam Vital Signs: Vital Signs: Last Vital Signs Temp 96.8 F 08/13/20 07:23 Pulse 86 08/13/20 07:23 Resp 18 08/13/20 07:23 BP 112/45 L 08/13/20 07:23 Pulse Ox 95 08/13/20 07:23 Body Mass Index 39.4 Const: General: cooperative, healthy appearing and no acute distress Resp: Effort & Inspection: normal respiratory effort and able to speak in complete sentences Cardio: Rate: regular rate Peripheral pulses: Peripheral pulses 2+ throughout GI: Palpation (GI): Soft to palpation Skin: Lesions: no lesions Rashes: no rashes Extrem: Other: Left lower extremity short leg splint remains clean, dry, and intact. Patient is able to demonstrate moving all digits. Sensation intact. Progress Note: A&P Assessment and plan (1) Bimalleolar ankle fracture: Status: Acute Assessment and Plan: Continue pain mgmnt Begin Lovenox for dvt ppx today Dispo planning- pain mgmnt, would like to get her back to rehab today. Case management will work on this. (2) Ankle fracture, lateral malleolus, closed: Status: Acute (3) Status post open reduction with internal fixation (ORIF) of fracture of ankle: Status: Acute Fall Risk Details Current Medications: Current Medications Generic Name Dose Route Start Last Admin Trade Name Freq PRN Reason Stop Dose Admin Acetaminophen 650 mg 08/12/20 15:28 08/13/20 00:15 Acetaminophen 325 Mg Tablet PO 650 mg Q6H PRN Administration Pain, Mild (Pain Scale 1-3) Albuterol Sulfate 2.5 mg 08/12/20 11:00 Albuterol Sulfate (0.083%) 2.5 Mg/3 Ml Vial.Neb INHALE ONCE PRN Shortness of Breath/Wheezing Albuterol Sulfate 2.5 mg 08/12/20 12:52 Albuterol Sulfate (0.083%) 2.5 Mg/3 Ml Vial.Neb INHALE ONCE PRN Wheezing Albuterol Sulfate 2 puff 08/13/20 02:33 Albuterol Sulfate 90 Mcg 8 Gm Inhaler INHALE Q4H PRN Wheezing Baclofen 10 mg 08/13/20 02:33 Baclofen 10 Mg Tablet PO TID PRN muscle spasm Bupropion HCl 150 mg 08/13/20 02:45 08/13/20 03:22 Bupropion Hcl Xl 150 Mg Tab.Er.24h PO 150 mg BEDTIME KUMAR Administration Desmopressin Acetate 0.4 mg 08/13/20 02:45 08/13/20 03:22 Desmopressin Acetate 0.2 Mg Tablet PO 0.4 mg BEDTIME KUMAR Administration Docusate Sodium 100 mg 08/12/20 21:00 08/12/20 20:35 Docusate Sodium 100 Mg Capsule PO 100 mg BID KUMAR Administration Docusate Sodium 100 mg 08/13/20 02:33 Docusate Sodium 100 Mg Capsule PO BEDTIME PRN constipation Fentanyl 50 mcg 08/12/20 12:52 08/12/20 16:00 Fentanyl Citrate/Pf 100 Mcg/2 Ml Vial IVPUSH 50 mcg Q5M PRN Administration Pain, Severe (Pain Scale 7-10) Fentanyl 25 mcg 08/12/20 12:52 Fentanyl Citrate/Pf 100 Mcg/2 Ml Vial IVPUSH Q5M PRN Pain, Moderate (Pain Scale 4-6 Gabapentin 100 mg 08/13/20 02:45 08/13/20 03:22 Gabapentin 100 Mg Capsule PO 100 mg TID KUMAR Administration Hydrochlorothiazide 25 mg 08/13/20 09:00 Hydrochlorothiazide 25 Mg Tablet PO DAILY [facility] Protocol Hydromorphone HCl 0.25 mg 08/12/20 15:28 Hydromorphone Hcl 0.5 Mg/0.5 Ml Syringe IVPUSH Q4H PRN Pain, Severe (Pain Scale 7-10) Promethazine HCl 6.25 mg/ 50.25 mls @ 201 mls/hr 08/12/20 12:52 Sodium Chloride IV ONCE PRN Nausea and Vomiting Dextrose/Sodium Chloride 1,000 mls @ 80 mls/hr 08/12/20 15:30 08/13/20 04:02 D51/2ns IVCONT 80 mls/hr .[id number] KUMAR Administration Montelukast Sodium 10 mg 08/13/20 09:00 Montelukast Sodium 10 Mg Tablet PO DAILY [facility] Naloxone HCl 0.2 mg 08/12/20 15:28 Naloxone Hcl 0.4 Mg/Ml Vial IVPUSH Q2M PRN Excessive sedation or RR < 8 Non-Formulary Medication 5 mg 08/13/20 02:33 Melatonin PO BEDTIME PRN insomnia Ondansetron HCl 4 mg 08/12/20 15:28 Ondansetron Hcl 4 Mg/2 Ml Vial IVPUSH Q8H PRN Nausea and Vomiting Oxycodone HCl 10 mg 08/12/20 12:52 Oxycodone Hcl Immed Release 5 Mg Tablet PO ONCE PRN Pain, Severe (Pain Scale 7-10) Oxycodone HCl 5 mg 08/12/20 12:52 Oxycodone Hcl Immed Release 5 Mg Tablet PO ONCE PRN Pain, Severe (Pain Scale 7-10) Oxycodone HCl 5 mg 08/12/20 15:28 08/13/20 02:34 Oxycodone Hcl Immed Release 5 Mg Tablet PO 5 mg Q4H PRN Administration Pain, Moderate (Pain Scale 4-6 Oxycodone HCl 5 mg 08/13/20 02:33 Oxycodone Hcl Immed Release 5 Mg Tablet PO Q4H PRN Pain, Moderate (Pain Scale 4-6 Sodium Chloride 3 ml 08/12/20 16:00 08/13/20 06:57 0.9 % Sodium Chloride Flush 3 Ml Syringe IVFLUSH Not Given QSHIFT KUMAR Trazodone HCl 150 mg 08/13/20 21:00 Trazodone Hcl 50 Mg Tablet PO BEDTIME KUMAR Vitamin D 50 mcg 08/13/20 09:00 Cholecalciferol (Vitamin D3) 25 Mcg Tablet PO DAILY [facility] Time Spent With Patient Time: Total time spent is greater than 50% in coordination of care (as documented) at patient's floor/unit and/or counseling patient: Time with patient: less than 15 minutes Procedures Date of Service Date of Service: 08/13/20
[2020-08-13] MEDS: Docusate Sodium 100 MG CAPSULE PO ×3 (08:44→20:42)
[2020-08-13] MEDS: hydroCHLOROthiazide 25 MG TABLET PO (08:44)
[2020-08-13] MEDS: Cholecalciferol (Vitamin D3) 25 MCG TABLET 50 MCG PO (08:44)
[2020-08-13] MEDS: Montelukast Sodium 10 MG TABLET PO (08:44)
--- NOTE | 2020-08-13 09:34 | MHC.CM.PN ---
CM MET WITH PT WHO REPORTS SHE LIVES ALONE AND HAS NO SERVICES AND USES NO ASSISTIVE DEVICE AT BASELINE BUT HAS BEEN AT [facility] FOR 18 DAYS AND PLANS TO RETURN THERE AT DC. PT REPORTS HER PCP IS BONY ACOSTA AND HER HCP IS HER DAUGHTER. CURRENT DC PLAN IS TO RETURN TO [facility] FOR STR. PT WILL NEED A PT EVAL AND PRIOR AUTH. BLS TRANSPORT
--- NOTE | 2020-08-13 12:39 | MHC.CM.PN ---
PT WILL DISCHARGE BACK TO [facility] TODAY VIA S PENDING INSURANCE AUTH
[2020-08-13 13:43] LABS: COVID-19 Test Negative (Negative)
[2020-08-13] MEDS: Enoxaparin Sodium 40 MG/0.4 ML SYRINGE SUBCUT (15:01)
[2020-08-13] MEDS: 0.9 % Sodium Chloride Flush 3 ML SYRINGE IVFLUSH (15:46)
--- NOTE | 2020-08-13 19:06 | PC.NURSE ---
continuous o2 monitor removed. pt sats are stable 94%-96% on RA no SOB or resp distress. Updated MD. VAN to remove.
[2020-08-13] MEDS: traZODone HCL 50 MG TABLET 150 MG PO (20:33)
[2020-08-13] MEDS: Melatonin 3 MG TABLET 6 MG PO (20:35)
[2020-08-14 03:24] VITALS: BP 118/52; PULSE 98; RESP 18; TEMP 36.4; O2SAT 93
[2020-08-14] MEDS: oxyCODONE HCl Immed Release 5 MG TABLET 10 MG PO (03:38)
[2020-08-14] MEDS: Acetaminophen 325 MG TABLET 650 MG PO ×2 (03:38→12:32)
--- NOTE | 2020-08-14 06:40 | HO.POSTANES ---
Post Anesthesia Evaluation Post Anesthesia Evaluation Vital Signs: Vital Signs Temp Pulse Resp BP Pulse Ox 08/14/20 03:24 97.6 F 98 18 118/52 L 93 08/13/20 23:33 97.6 F 97 18 117/50 L 93 08/13/20 19:12 98.2 F 95 96 H 120/62 94 Anesthesia: General Mental Status: Awake Pain Control: Satisfactory Nausea/Vomiting: None Hydration: Adequate Anesthesia-Related Issues: No Anes. Related Issues
[2020-08-14 07:30] LABS: Anion Gap 9 (12-20); Blood Urea Nitrogen 20 mg/dL (9-16); Calcium 8.2 mg/dL (8.4-10.2); Carbon Dioxide 30 mmol/L (22-29); Chloride 96 mmol/L (96-108); Creatinine Clr Calc Pharmacy 63.8; Estimated Glomerular Filt Rate > 60; Glucose Fasting 95 mg/dL (60-99); Potassium 4.1 mmol/L (3.3-5.1); Sodium 131 mmol/L (135-145)
[2020-08-14] MEDS: Cholecalciferol (Vitamin D3) 25 MCG TABLET 50 MCG PO (07:51)
[2020-08-14] MEDS: Docusate Sodium 100 MG CAPSULE PO ×2 (07:51→12:31)
[2020-08-14] MEDS: oxyCODONE HCl Immed Release 5 MG TABLET PO ×2 (07:52→12:32)
[2020-08-14] MEDS: Montelukast Sodium 10 MG TABLET PO (07:52)
[2020-08-14] MEDS: Gabapentin 100 MG CAPSULE PO (07:52)
--- NOTE | 2020-08-14 07:56 | P.DS_ITS ---
DS: Providers Provider Date of Service: 08/14/20 Primary care physician: Clara Licona MD Consults: 08/12/20 15:28 Consult to Hospitalist Routine Consulting Provider: Hospitalist Reason For Exam: Routine medical management DS: Diagnosis Discharge Diagnosis (1) Bimalleolar ankle fracture: Status: Acute Problem details: Ms. Whitehead who is a 70-year-old female who is status post left ankle ORIF with Dr. Bowen on 08/12/2020. On 07/26/2020 the patient stated that she fell at home and presented to the ED where x-rays were obtained and she was found to have a right ankle nondisplaced distal fibular fracture. This has been treated non operatively with a tall walking boot weight-bearing as tolerated. She was also found to have a left ankle by malleolar fracture. Over the following days she had developed quite large fracture blisters and had been monitored in the outpatient setting for preparation for surgery once her skin had healed. A left ankle ORIF was performed on 08/12/2020 the patient has been placed in a splint and nonweightbearing. (2) Ankle fracture, lateral malleolus, closed: Status: Acute (3) Status post open reduction with internal fixation (ORIF) of fracture of ankle: Status: Acute DS: Medications Discharge Medications Home Medications: Home Medications Medication Instructions Recorded Confirmed albuterol sulfate 90 mcg/actuation 2 puff PO Q4-6H PRN 06/08/20 08/13/20 aerosol inhaler baclofen 10 mg tablet 10 mg PO TID PRN 06/08/20 08/13/20 bupropion HCl 150 mg 24 hr tablet, 150 mg PO BEDTIME 06/08/20 08/13/20 extended release cholecalciferol (vitamin D3) 50 50 mcg PO QAM 06/08/20 08/13/20 mcg (2,000 unit) capsule desmopressin 0.2 mg tablet 0.4 mg PO BEDTIME 06/08/20 08/13/20 docusate sodium 100 mg capsule 100 mg PO BEDTIME PRN 06/08/20 08/13/20 ferrous sulfate 325 mg (65 mg 325 mg PO BEDTIME 06/08/20 08/13/20 iron) tablet fluticasone propionate 110 2 puff PO BID 06/08/20 08/13/20 mcg/actuation HFA aerosol inhaler gabapentin 100 mg capsule 100 mg PO TID 06/08/20 08/13/20 hydrochlorothiazide 25 mg tablet 25 mg PO QAM 06/08/20 08/13/20 melatonin 5 mg tablet 5 mg PO BEDTIME PRN 06/08/20 08/13/20 montelukast 10 mg tablet 10 mg PO DAILY 06/08/20 08/13/20 trazodone 150 mg tablet 150 mg PO BEDTIME 06/08/20 08/13/20 rosuvastatin 10 mg tablet 10 mg PO BEDTIME 08/11/20 08/13/20 Previous Rx's Medication Instructions Recorded acetaminophen 650 mg ID Q6H PRN 30 Days #240 ea 07/28/20 enoxaparin 40 mg SUBCUT Q24H 30 Days #12 ml 08/13/20 oxycodone 5 mg PO Q4H PRN 7 Days #42 tab 08/13/20 DS: Summary Hospital Course Hospital Course: The patient underwent a successful left ankle ORIF, they were transferred to PACU and then to the floor to recover. During their stay, their vitals were stable, afebrile at 97.6. Labs were unremarkable, H/H 8.1/25.4. POD 1 she resumed Lovenox for DVT ppx, she also received Physical Therapy services twice a day. Prior to discharge, her splint remained clean, dry, and intact. She will discharge to a rehab facility. Time Spent with Patient Time attestation: Total time spent providing and/or coordinating discharge services: Discharge coordination time: Less than 30 minutes Quality: Stroke Does the patient have a stroke diagnosis?: No Physical Exam Vital Signs: Vital Signs: Last Vital Signs Temp 97.6 F 08/14/20 03:24 Pulse 98 08/14/20 03:24 Resp 18 08/14/20 03:24 BP 118/52 L 08/14/20 03:24 Pulse Ox 93 08/14/20 03:24 Body Mass Index 39.4 Const: General: cooperative, healthy appearing and no acute distress Resp: Effort & Inspection: normal respiratory effort and able to speak in complete sentences Cardio: Rate: regular rate Peripheral pulses: Peripheral pulses 2+ throughout GI: Palpation (GI): Soft to palpation Skin: Lesions: no lesions Rashes: no rashes Extrem: Other: Left ankle short-leg splint remains clean dry and intact. She is able to move all digits. Sensation is intact. Capillary refill is brisk. DS: Data Data Completed and Pending Completed studies during hospitalization [Text1]: Procedures Immobilization of Left Foot using Splint (07/26/20) Labs on day of discharge: Laboratory Results - last 24 hr 08/13/20 08/14/20 13:12 06:01 Sodium 131 L Potassium 4.1 Chloride 96 Carbon Dioxide 30 H Anion Gap 9 L BUN 20 H Creatinine 0.77 Estim Creat Clear Calc 63.8 Estimated GFR > 60 Fasting Glucose 95 Calcium 8.2 L COVID-19 ([facility]) Negative COVID-19 Clin Com See Note Discharge Plan Discharge Patient Disposition: Home, Self-Care Referrals: [facility] [place] [Outside] - 1 Week Eri Reid PA-C [Physician Logistics Operations Manager] - 1 Week (08/27/20 at 1:00pm ) Clara Adamson MD [Primary Care Provider] - 1 Week Discharge Medications: New enoxaparin 40 mg/0.4 mL Syringe 40 mg subcut Q24H 30 Days Qty: 12 RF: 0 oxycodone 5 mg tablet 5 mg PO Q4H PRN (Reason: pain) 7 Days Qty: 42 RF: 0 Continued acetaminophen 650 mg Suppository 650 mg ID Q6H PRN (Reason: Pain, Mild (Pain Scale 1-3)) 30 Days Qty: 240 RF: 0 albuterol sulfate 90 mcg/actuation HFA aerosol inhaler 2 puff PO Q4-6H PRN (Reason: Wheezing) RF: 0 fluticasone propionate 110 mcg/actuation HFA aerosol inhaler 2 puff PO BID RF: 0 baclofen 10 mg tablet 10 mg PO TID PRN (Reason: muscle spasm) RF: 0 desmopressin 0.2 mg tablet 0.4 mg PO BEDTIME RF: 0 ferrous sulfate 325 mg (65 mg iron) tablet 325 mg PO BEDTIME RF: 0 hydrochlorothiazide 25 mg tablet 25 mg PO QAM RF: 0 gabapentin 100 mg capsule 100 mg PO TID RF: 0 montelukast 10 mg tablet 10 mg PO DAILY RF: 0 melatonin 5 mg tablet 5 mg PO BEDTIME PRN (Reason: insomnia) RF: 0 cholecalciferol (vitamin D3) 50 mcg (2,000 unit) capsule 50 mcg PO QAM RF: 0 bupropion HCl 150 mg tablet extended release 24 hr 150 mg PO BEDTIME RF: 0 docusate sodium 100 mg capsule 100 mg PO BEDTIME PRN (Reason: constipation) RF: 0 trazodone 150 mg tablet 150 mg PO BEDTIME RF: 0 rosuvastatin 10 mg tablet 10 mg PO BEDTIME RF: 0 Discontinued oxycodone 5 mg Tablet 5 mg PO Q4H PRN (Reason: Pain, Moderate (Pain Scale 4-6) 7 Days Qty: 42 RF: 0 Discharge Orders: Discharge Order (Routine); Ordered 08/13/20 Ordered By: Eri Reid Activity Restrictions/Additional Instructions: Left ankle NWB Right ankle WBAT Oxycodone 5mg po q 4hrs prn pain Keep splint clean, dry, and intact Elevate on three pillows throughout the day Do not bathe or shower--keep splint dry [place] [facility] [place] with any questions or concerns. Follow up with orthopedics in 7-10 days post op
[2020-08-14 08:00] VITALS: BP 130/68; PULSE 87; RESP 18; TEMP 36.2; O2SAT 94
--- NOTE | 2020-08-14 09:03 | HO.PM.IMPN ---
Subjective Subjective Date of Service: 08/14/20 Interval History: Complaining of left ankle pain, although feels better control with 10 mg of oxycodone, denies abdominal pain no nausea, no vomiting, no other acute issues overnight ROS General no headache, no dizziness no fever chills. CVS no chest pain, no palpitation. Respiratory no cough, no sob. Gastrointestinal no nausea, no vomiting, no abdominal pain Physical Exam Vital Signs: Vital Signs: Last Vital Signs Temp 97.2 F 08/14/20 08:00 Pulse 87 08/14/20 08:00 Resp 18 08/14/20 08:00 BP 130/68 08/14/20 08:00 Pulse Ox 94 08/14/20 08:00 Body Mass Index 39.4 General no acute distress. Neck is supple no JVD. CVS regular rate rhythm, Respiratory lungs clear to auscultation, no respiratory distress, no wheeze, no rhonchi. Gastrointestinal abdomen soft, nontender, bowel sounds audible, no guarding , no rigidity. Extremities right foot in long boot, left foot dressing in place Neuro nonfocal , speech clear. Skin no rash Objective Data Current Medications Generic Name Dose Route Start Last Admin Trade Name Freq PRN Reason Stop Dose Admin Acetaminophen 650 mg 08/12/20 15:28 08/14/20 03:38 Acetaminophen 325 Mg Tablet PO 650 mg Q6H PRN Administration Pain, Mild (Pain Scale 1-3) Albuterol Sulfate 2.5 mg 08/12/20 11:00 Albuterol Sulfate (0.083%) 2.5 Mg/3 Ml Vial.Neb INHALE ONCE PRN Shortness of Breath/Wheezing Albuterol Sulfate 2.5 mg 08/12/20 12:52 Albuterol Sulfate (0.083%) 2.5 Mg/3 Ml Vial.Neb INHALE ONCE PRN Wheezing Albuterol Sulfate 2 puff 08/13/20 02:33 Albuterol Sulfate 90 Mcg 8 Gm Inhaler INHALE Q4H PRN Wheezing Baclofen 10 mg 08/13/20 02:33 Baclofen 10 Mg Tablet PO TID PRN muscle spasm Bupropion HCl 150 mg 08/13/20 02:45 08/13/20 20:34 Bupropion Hcl Xl 150 Mg Tab.Er.24h PO 150 mg BEDTIME KUMAR Administration Desmopressin Acetate 0.4 mg 08/13/20 02:45 08/13/20 20:34 Desmopressin Acetate 0.2 Mg Tablet PO 0.4 mg BEDTIME KUMAR Administration Docusate Sodium 100 mg 08/12/20 21:00 08/14/20 07:51 Docusate Sodium 100 Mg Capsule PO 100 mg BID KUMAR Administration Docusate Sodium 100 mg 08/13/20 02:33 08/13/20 20:34 Docusate Sodium 100 Mg Capsule PO 100 mg BEDTIME PRN Administration constipation Enoxaparin Sodium 40 mg 08/13/20 14:00 08/13/20 15:01 Enoxaparin Sodium 40 Mg/0.4 Ml Syringe SUBCUT 40 mg Q24H KUMAR Administration Fentanyl 50 mcg 08/12/20 12:52 08/12/20 16:00 Fentanyl Citrate/Pf 100 Mcg/2 Ml Vial IVPUSH 50 mcg Q5M PRN Administration Pain, Severe (Pain Scale 7-10) Fentanyl 25 mcg 08/12/20 12:52 Fentanyl Citrate/Pf 100 Mcg/2 Ml Vial IVPUSH Q5M PRN Pain, Moderate (Pain Scale 4-6 Gabapentin 100 mg 08/13/20 02:45 08/14/20 07:52 Gabapentin 100 Mg Capsule PO 100 mg TID KUMAR Administration Hydromorphone HCl 0.25 mg 08/12/20 15:28 Hydromorphone Hcl 0.5 Mg/0.5 Ml Syringe IVPUSH Q4H PRN Pain, Severe (Pain Scale 7-10) Promethazine HCl 6.25 mg/ 50.25 mls @ 201 mls/hr 08/12/20 12:52 Sodium Chloride IV ONCE PRN Nausea and Vomiting Melatonin 6 mg 08/13/20 07:58 08/13/20 20:35 Melatonin 3 Mg Tablet PO 6 mg BEDTIME PRN Administration Insomnia Montelukast Sodium 10 mg 08/13/20 09:00 08/14/20 07:52 Montelukast Sodium 10 Mg Tablet PO 10 mg DAILY KUMAR Administration Naloxone HCl 0.2 mg 08/12/20 15:28 Naloxone Hcl 0.4 Mg/Ml Vial IVPUSH Q2M PRN Excessive sedation or RR < 8 Ondansetron HCl 4 mg 08/12/20 15:28 Ondansetron Hcl 4 Mg/2 Ml Vial IVPUSH Q8H PRN Nausea and Vomiting Oxycodone HCl 5 mg 08/12/20 12:52 Oxycodone Hcl Immed Release 5 Mg Tablet PO ONCE PRN Pain, Severe (Pain Scale 7-10) Oxycodone HCl 5 mg 08/12/20 15:28 08/13/20 20:34 Oxycodone Hcl Immed Release 5 Mg Tablet PO 5 mg Q4H PRN Administration Pain, Moderate (Pain Scale 4-6 Oxycodone HCl 5 mg 08/13/20 02:33 08/14/20 07:52 Oxycodone Hcl Immed Release 5 Mg Tablet PO 5 mg Q4H PRN Administration Pain, Moderate (Pain Scale 4-6 Sodium Chloride 3 ml 08/12/20 16:00 08/14/20 07:53 0.9 % Sodium Chloride Flush 3 Ml Syringe IVFLUSH Not Given QSHIFT KUMAR Trazodone HCl 150 mg 08/13/20 21:00 08/13/20 20:33 Trazodone Hcl 50 Mg Tablet PO 50 mg BEDTIME KUMAR Administration Vitamin D 50 mcg 08/13/20 09:00 08/14/20 07:51 Cholecalciferol (Vitamin D3) 25 Mcg Tablet PO 50 mcg DAILY KUMAR Administration Labs CBC & Chem 7: 08/13/20 05:53 08/14/20 06:01 Assessment and Plan (1) Status post open reduction with internal fixation (ORIF) of fracture of ankle: Status: Acute (2) Bimalleolar ankle fracture: Status: Acute (3) Insomnia: Status: Acute (4) Depression: Status: Acute (5) Essential hypertension: Status: Acute (6) Dyslipidemia: Status: Acute (7) Moderate asthma: Status: Acute Assessment and Plan: 70 year old women admitted to orthopedic surgery for left ankle fracture secondary to a fall at home. Bimalleolar left ankle fracture s/p ORIF Good pain control, transfer to rehab today , further treatment plan as per orthopedic surgeon, recommend to take high-fiber diet, avoid constipation use incentive spirometry and participate with PT Hypertension. Noted to have soft blood pressure therefore hydrochlorothiazide held, recommend to follow BP closely and resume blood pressure medication if SBP above 135 Asthma No acute exacerbation, continue Singulair and Albuterol as needed HLD Resume statin Depression Continue home medications History of insomnia continue trazodone DISPO: Rehab tomorrow DVT prophylaxis as per surgical team
[2020-08-14 11:52] VITALS: BP 102/48; PULSE 92; RESP 18; TEMP 36.4; O2SAT 96
[2020-08-14] MEDS: Enoxaparin Sodium 40 MG/0.4 ML SYRINGE SUBCUT (12:33)
--- NOTE | 2020-08-14 12:33 | MHC.CM.PN ---
IMM 08/14, PT DISCHARGING AT 1PM RETURNING TO [facility] W/ACTION FOR BLS TRANSPORT
--- NOTE | 2020-08-14 14:31 | CONS_ITS ---
DATE OF SERVICE: 08/13/2020 REASON FOR CONSULTATION: Medical management for hypertension, depression, and dyslipidemia on the patient, who underwent surgery for left ankle bimalleolar fracture. CONSULTING PHYSICIAN: Dr. Narendra Bowen. HISTORY OF PRESENTING ILLNESS: This is a 70-year-old woman, who was initially admitted to [facility] on July 26, 2020 after sustaining a fall at home and was diagnosed to have left ankle bimalleolar fracture and a right ankle distal fibular fracture. The patient was admitted under Orthopedic Surgery and a left posterior splint was placed on the left lower extremity bimalleolar fracture and a right lower extremity tall walking boot was placed for a distal fibular fracture and the patient was supposed to be weightbearing on right lower extremity and nonweightbearing on the left lower extremity. Due to a large fracture blister formation on the medial aspect of the left ankle along with smaller multiple fracture blisters on the lateral aspect of the ankle, surgery was postponed and the patient was sent to rehab facility. The patient was brought back to [facility] for scheduled surgery and underwent left ankle ORIF on August 12. Postsurgery, the patient has been doing well, complaining of left ankle pain, worse with minimal movement, currently receiving narcotic medications. Besides that, the patient denies any shortness of breath, cough. Denies any nausea, vomiting, abdominal discomfort. She denies any dizziness. The patient receiving IV fluids, tolerating oral diet. BP is borderline low. PAST MEDICAL HISTORY: Significant for history of depression, history of dyslipidemia, history of hypertension, history of hypovitaminosis D, history of insomnia, history of iron-deficiency anemia, history of moderate asthma, history of osteoporosis and renal calculi. FAMILY HISTORY: Father is , had no medical issues. Mother had breast cancer. She is also . Sister has diabetes and heart attack. Maternal grandmother also is , had a brain cancer. SOCIAL HISTORY: The patient is a former smoker. Denies any alcohol abuse. No other IV drug use. 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 No dizziness. CVS: No chest pain or palpitation. GASTROINTESTINAL: Denies any nausea or vomiting. : No urinary symptoms of urgency or frequency. SKIN: Denies any rashes. Rest of all other systems are reviewed and are negative. PHYSICAL EXAMINATION: GENERAL: The patient is resting comfortably, does not appear to be in acute distress. VITAL SIGNS: Blood pressure 101/45 with a pulse of 89, respiratory rate 18, she is afebrile, O2 saturation 96% on room air. HEENT: Pupils equal, round, and reactive to light and accommodation. NECK: Supple. No JVD. LUNGS: Clear to auscultation bilaterally. HEART: Regular rate and rhythm. ABDOMEN: Soft, nontender. Bowel sounds are audible. EXTREMITIES: Left ankle dressing is in place. Right ankle is in a tall boot. SKIN: Without any rashes. LABORATORY DATA: Showed a hemoglobin of 8.1, hematocrit of 25.4, platelet count of 359. Sodium 136, potassium 4.9, bicarb of 30, BUN 15, creatinine of 0.77, blood sugar 115. ASSESSMENT AND PLAN: A 70-year-old woman, admitted under Orthopedic Surgery for elective left ankle ORIF, status post surgery postoperative day 1. 1. Status post bimalleolar left ankle fracture, status post ORIF postoperative day 1. Continue pain medication as per Orthopedic Surgery. We will discontinue IV fluids. 2. History of hypertension. The patient is on hydrochlorothiazide with a borderline blood pressure, therefore we will discontinue hydrochlorothiazide. Recommend to recheck blood pressure in next 24 hours. If remains low, then continue to hold hydrochlorothiazide or will resume as per blood pressure monitoring. 3. History of anxiety and depression. We will continue bupropion. 4. History of asthma. No acute exacerbation. Continue Singulair. 5. Deep vein thrombosis prophylaxis. The patient is on Lovenox as per Orthopedic Surgery. Thank you for allowing us to participate in the care of this patient. We will follow the patient along with you. MD LOTTIE Brunson/SHEN / [phone] DELFIN
--- NOTE | 2020-08-14 14:57 | PC.NURSE ---
patient with discharge order, difficulty with finalizing dc meds.hospitalist and surgery attempts not successful. because of this problem there is no discharge assessment and next dose due options available for this RN to complete.Med-surge corporate compliance manager is aware.Patient is alert and oriented,no pain,no iv access or telemetry pack.Patient returned to nursing facility by ambulance.
--- NOTE | 2020-08-18 09:58 | W.PM.OPN ---
Operative Note Operative Note Date of Service: 08/12/20 Narrative: Pre-op diagnosis: left bimalleolar ankle fracture Post-op diagnosis: same Procedure: ORIF left bimalleolar ankle fracture Implants: Zeny lateral locing plate and 2 46 mm 4.0 cannulated partially threaded screws Surgeon: Narendra Bowen MD Anesthesia: GETA Was an Hand Cultivator used for this Procedure?: Yes Hand Cultivator: Eri Reid Estimated blood loss (mL): 150 Tourniquet time (min): 60 IV fluids (mL): 1,000 Pathology: none sent Condition: stable Disposition: PACU Patient was brought to the operating room and placed supine on the surgical table. She was prepped and draped in standard sterile fashion and a time out was called to identify proper site, proper procedure and IV antibiotics per weight were administered. I began by exsanguinating the limb and insufflating the tourniquet to 300 mm mercury. I then made a lateral incision over the posterior aspect of the fibula. Care was taken to avoid the blistered skin. Full-thickness skin flap was made distally and the fracture was identified. It was cleaned with a combination of irrigation and, sharp dissection and curettage. I then used a lobster claw tenaculum to reduce the fracture. She had very poor bone quality that I did not feel would hold a lag screw therefore a lateral locking plate was placed using standard AO technique and biplanar fluoroscopy. Once I was satisfied with the position of the hardware and the fracture alignment I turned my attention to the medial malleolus. An oblique incision was made over the distal aspect of the medial malleolus and a dissection revealed a large medial malleolar fragment. Unfortunately there was comminuted cortical bone proximal to this. I irrigated the fracture and was able to reduce it and placed 2 threaded K-wires and then using standard AO technique over drilled these and placed 2 45 mm partially threaded cancellous screws. 5 cc of Vitoss bone substitute was placed in the defect just proximal to the medial malleolus. I initially tried to place a tight rope across the syndesmosis as the ER test was mildly +. However when I pulled tension on the tightrope this pulled through the extremely poor bone stock medially. The decision was then made to forego a syndesmosis fixation as I do not believe the bone was adequate quality to hold either screw or the tight rope. The wounds were then irrigated copiously and closed with nylon suture. Patient was placed into a well-padded posterior splint and sterile dressings. She was extubated brought to recovery room in stable condition there were no known complications. `
== END 2020-08-14 14:56 | disposition home or self-care (01) ==
LOC: HO.SSS 10:25 → HO.S3 17:32
PROVIDERS: Physician Assistant; PCP Internal Medicine; Visit Provider Orthopaedic Surgery
PROC: (CPT 27792; principal; 2020-08-12 13:20)
DX: S82.64XA Nondisplaced fracture of lateral malleolus of right fibula, initial encounter for closed fracture (principal); S82.842A Displaced bimalleolar fracture of left lower leg, initial encounter for closed fracture; W01.0XXA Fall on same level from slipping, tripping and stumbling without subsequent striking against object, initial encounter; Y93.01 Activity, walking, marching and hiking; Y92.008 Other place in unspecified non-institutional (private) residence as the place of occurrence of the external cause; Y99.8 Other external cause status; Z20.822 Contact with and (suspected) exposure to COVID-19; E55.9 Vitamin D deficiency, unspecified; M81.0 Age-related osteoporosis without current pathological fracture; I10 Essential (primary) hypertension; D50.9 Iron deficiency anemia, unspecified; J45.909 Unspecified asthma, uncomplicated; Z87.891 Personal history of nicotine dependence
CPT/HCPCS: 27792; 27814; 36415; 80048; 85025; 87635; 97110; 97162; 97166; C1713; J0690; J1100; J1650; J2405; J3010

== ENCOUNTER → 2020-08-27 12:42 | Outpatient (BNVA) | payer MEDICARE, MEDICAID, SELFPAY | PROVIDERS: Visit Provider Orthopaedic Surgery | DX: S82.842D Displaced bimalleolar fracture of left lower leg, subsequent encounter for closed fracture with routine healing (principal); S82.64XD Nondisplaced fracture of lateral malleolus of right fibula, subsequent encounter for closed fracture with routine healing; Z98.890 Other specified postprocedural states; Z87.81 Personal history of (healed) traumatic fracture | CPT/HCPCS: 99212 ==

== ENCOUNTER 2020-09-24 07:53 | Outpatient (REF) | payer MEDICARE, MEDICAID, SELFPAY ==
--- NOTE | ~2020-09-24 | XR_ITS ---
EXAMINATION: XR ANKLE, RIGHT XR ANKLE, LEFT CLINICAL INFORMATION: Fracture. COMPARISON: Right and left ankle radiographs dated 07/26/2020 TECHNIQUE: AP, mortise, and lateral views of the right and left ankle. FINDINGS: RIGHT ANKLE: Distal fibular fracture in unchanged anatomic alignment with interval new bone/callus formation. Tiny osseous fragments redemonstrated adjacent to the medial malleolus, which could represent remote fracture fragments versus accessory ossicles. No dislocation. The ankle mortise is maintained. No joint space narrowing or marginal osteophytes. No osseous erosion. LEFT ANKLE: Distal fibular stabilization plate and fixation screws. Medial malleolar orthopedic screws. Previously seen fractures are in near-anatomic alignment. There has been interval new bone/callus formation. The ankle mortise is maintained. No joint space narrowing or marginal osteophytes. Disuse osteopenia. Tiny plantar and dorsal calcaneal enthesophytes. XR/XR ankle LT min 3V IMPRESSION: RIGHT ANKLE: Distal fibular fracture in unchanged anatomic alignment with interval new bone/callus formation. LEFT ANKLE: Medial malleolar and distal fibular orthopedic hardware without evidence of complication. Previously seen fractures in near-anatomic alignment with interval new bone/callus formation. Disuse osteopenia.
--- NOTE | ~2020-09-24 | XR_ITS ---
EXAMINATION: XR ANKLE, RIGHT XR ANKLE, LEFT CLINICAL INFORMATION: Fracture. COMPARISON: Right and left ankle radiographs dated 07/26/2020 TECHNIQUE: AP, mortise, and lateral views of the right and left ankle. FINDINGS: RIGHT ANKLE: Distal fibular fracture in unchanged anatomic alignment with interval new bone/callus formation. Tiny osseous fragments redemonstrated adjacent to the medial malleolus, which could represent remote fracture fragments versus accessory ossicles. No dislocation. The ankle mortise is maintained. No joint space narrowing or marginal osteophytes. No osseous erosion. LEFT ANKLE: Distal fibular stabilization plate and fixation screws. Medial malleolar orthopedic screws. Previously seen fractures are in near-anatomic alignment. There has been interval new bone/callus formation. The ankle mortise is maintained. No joint space narrowing or marginal osteophytes. Disuse osteopenia. Tiny plantar and dorsal calcaneal enthesophytes. XR/XR ankle RT min 3V IMPRESSION: RIGHT ANKLE: Distal fibular fracture in unchanged anatomic alignment with interval new bone/callus formation. LEFT ANKLE: Medial malleolar and distal fibular orthopedic hardware without evidence of complication. Previously seen fractures in near-anatomic alignment with interval new bone/callus formation. Disuse osteopenia.
== END 2020-09-24 07:54 | disposition home or self-care (01) ==
LOC: HO.HOSX 07:53
PROVIDERS: Visit Provider Orthopaedic Surgery
DX: S82.842D Displaced bimalleolar fracture of left lower leg, subsequent encounter for closed fracture with routine healing (principal); S82.64XD Nondisplaced fracture of lateral malleolus of right fibula, subsequent encounter for closed fracture with routine healing; Z98.890 Other specified postprocedural states; Z87.81 Personal history of (healed) traumatic fracture
CPT/HCPCS: 73610; 99212

== ENCOUNTER 2020-11-05 08:50 | Outpatient (REF) | payer MEDICARE, MEDICAID, SELFPAY ==
--- NOTE | ~2020-11-05 | XR_ITS ---
EXAMINATION: XR ANKLE, BILATERAL CLINICAL INFORMATION: Followup bilateral ankle fracture. COMPARISON: Left ankle 09/24/2020 TECHNIQUE: 3 views each ankle. FINDINGS: RIGHT ANKLE: There is a healing distal fibular fracture with moderate lateral malleolar soft tissue swelling. The ankle mortise and subtalar joints are normal. No new fractures seen. There is mild osteopenia. LEFT ANKLE: There is a lateral fibular plate for an old healing fracture with screws. There are 2 medial malleolar screws for an old healing medial malleolar fracture. There is no new fracture seen. There is diffuse osteopenia. Moderate lateral malleolar soft tissue swelling is noted. There is a small calcaneal heel enthesophyte seen. XR/XR ankle RT min 3V IMPRESSION: Bilateral distal fibular healing fracture right ankle with moderate lateral malleolar soft tissue swelling. There is a healing lateral malleolar fracture with metallic plate and medial malleolar fracture with 2 cancellous screws with moderate lateral malleolar soft tissue swelling left ankle. There is diffuse osteopenia with no recurrent fracture seen. There is a lucency traversing the distal tibia, stable compared to 09/24/2020.
--- NOTE | ~2020-11-05 | XR_ITS ---
EXAMINATION: XR ANKLE, BILATERAL CLINICAL INFORMATION: Followup bilateral ankle fracture. COMPARISON: Left ankle 09/24/2020 TECHNIQUE: 3 views each ankle. FINDINGS: RIGHT ANKLE: There is a healing distal fibular fracture with moderate lateral malleolar soft tissue swelling. The ankle mortise and subtalar joints are normal. No new fractures seen. There is mild osteopenia. LEFT ANKLE: There is a lateral fibular plate for an old healing fracture with screws. There are 2 medial malleolar screws for an old healing medial malleolar fracture. There is no new fracture seen. There is diffuse osteopenia. Moderate lateral malleolar soft tissue swelling is noted. There is a small calcaneal heel enthesophyte seen. XR/XR ankle LT min 3V IMPRESSION: Bilateral distal fibular healing fracture right ankle with moderate lateral malleolar soft tissue swelling. There is a healing lateral malleolar fracture with metallic plate and medial malleolar fracture with 2 cancellous screws with moderate lateral malleolar soft tissue swelling left ankle. There is diffuse osteopenia with no recurrent fracture seen. There is a lucency traversing the distal tibia, stable compared to 09/24/2020.
== END 2020-11-05 08:51 | disposition home or self-care (01) ==
LOC: HO.HOSX 08:50
PROVIDERS: Visit Provider Orthopaedic Surgery
DX: S82.64XD Nondisplaced fracture of lateral malleolus of right fibula, subsequent encounter for closed fracture with routine healing (principal); S82.65XD Nondisplaced fracture of lateral malleolus of left fibula, subsequent encounter for closed fracture with routine healing; Z98.890 Other specified postprocedural states; Z87.81 Personal history of (healed) traumatic fracture
CPT/HCPCS: 73610; 99212

== ENCOUNTER 2020-12-17 08:25 | Outpatient (REF) | payer MEDICARE, MEDICAID, SELFPAY ==
--- NOTE | ~2020-12-17 | XR_ITS ---
EXAMINATION: XR ANKLE, LEFT CLINICAL INFORMATION: Follow up fracture. COMPARISON: Previous x-ray October 2020. TECHNIQUE: AP, lateral, and mortise views of the left ankle. FINDINGS: There are 2 screws transfixing the medial malleolar fracture. Fracture line appears more indistinct and there is bony callus formation. There is a plate and screws transfixing the distal fibular shaft fracture. Orthopedic hardware appears unchanged. Fracture line is no longer seen. The bones are osteopenic. The ankle mortise is normal. There are calcaneal spurs. There are degenerative changes of the midfoot. XR/XR ankle LT min 3V IMPRESSION: ORIF of medial and lateral malleolar fractures and osteopenia.
== END 2020-12-17 08:26 | disposition home or self-care (01) ==
LOC: HO.HOSX 08:25
PROVIDERS: Visit Provider Orthopaedic Surgery
DX: M25.572 Pain in left ankle and joints of left foot (principal); Z98.890 Other specified postprocedural states; Z87.81 Personal history of (healed) traumatic fracture
CPT/HCPCS: 73610; 99212

== ENCOUNTER → 2021-03-22 11:37 | Outpatient (BNV) | payer MEDICARE, SELFPAY | PROVIDERS: PCP Family Medicine; Visit Provider Internal Medicine | DX: D47.2 Monoclonal gammopathy (principal) | CPT/HCPCS: 99213; 99214 ==

== ENCOUNTER 2021-04-09 09:58 | Outpatient (REF) | payer MEDICARE, SELFPAY ==
--- NOTE | ~2021-04-09 | CT_ITS ---
EXAMINATION: CT CHEST WITHOUT CONTRAST CLINICAL INFORMATION: Follow-up pulmonary nodules COMPARISON: Previous chest CT November 2019 TECHNIQUE: Multidetector volumetric CT imaging of the chest was done. Axial MIP volume rendering provided. Sagittal and coronal reformatted images were obtained. This CT examination was performed using dose optimization techniques as appropriate, variously including the following: *Automated exposure control *Adjustment of mA and/or kV according to patient size (this includes techniques or standardized protocols for targeted exams where dose is matched to indication/reason for exam; i.e. extremities or head) *Use of iterative reconstruction technique DLP: 170 mGy-cm FINDINGS: LUNGS: The 3 mm groundglass attenuation area and 2 mm nodules in the left upper lobe on November 2019 exam are no longer seen. The 4 mm peripheral or subpleural superior segment right lower lobe nodule axial image 158 series 6 is stable. There is a new 4 mm left upper lobe nodule axial image 102 series 6. There are surrounding smaller semisolid 1 to 2 mm peribronchial nodules for example axial image 110 series 6 questionable for airways disease. There are new clustered areas of peribronchial increased attenuation and small peribronchial nodules in the right lower lobe for example axial image 208 series 6 also suggestive of airways disease. There is increased peribronchial attenuation and small peribronchial nodules seen in the left lower lobe. There is a new 3 mm left lower lobe nodule axial image 99 series 6. This is also suggestive of airways disease. MEDIASTINUM: The mediastinum is normal. PLEURA: There is no pleural effusion. No pleural mass or thickening. AXILLA: No lymphadenopathy. UPPER ABDOMEN: There is a gastric lap band. Phi angle measures 75 degrees suggestive of evidence of slippage. There may be an esophageal hernia. There is questionable wall thickening of the distal esophagus. The left kidney appears smaller than the right. There is left hydronephrosis and a partially visualized central left renal pelvis stone. OSSEOUS STRUCTURES: There is scoliosis and degenerative change of the spine. CT/CT chest wo con IMPRESSION: Previously identified left upper lobe groundglass attenuation area and small nodules no longer seen. Stable 4 mm peripheral or subpleural superior segment right lower lobe nodule. New clustered nodules and increased peribronchial attenuation suggestive of airways disease in the left upper and bilateral lower lobes. Gastric lap band with question of evidence of slippage. There may be an esophageal hernia and wall thickening of the esophagus. Small left kidney and hydronephrosis. Partially visualized central left renal stone. Follow-up dedicated renal imaging recommended. Fleischner guidelines were followed.
== END 2021-04-09 09:59 | disposition home or self-care (01) ==
LOC: HO.CT 09:58
PROVIDERS: PCP Family Medicine; Visit Provider Family Medicine
DX: R91.1 Solitary pulmonary nodule (principal)
CPT/HCPCS: 71250

== ENCOUNTER → 2021-04-14 09:54 | Outpatient (BNVA) | payer MEDICARE, SELFPAY | PROVIDERS: PCP Family Medicine; Visit Provider Internal Medicine Pulmonary Disease | DX: G47.33 Obstructive sleep apnea (adult) (pediatric) (principal); J45.909 Unspecified asthma, uncomplicated; R91.8 Other nonspecific abnormal finding of lung field | CPT/HCPCS: 99212 ==

== ENCOUNTER 2021-04-14 11:00 | Outpatient (RCR) | payer MEDICARE, OTHER, SELFPAY ==
--- NOTE | 2021-02-17 15:08 | MHC.PT.EP ---
[facility] [place] [facility] [place] [facility] [place] [facility] [address] [place] Mary [address] [phone] F: [phone] F: [phone] F: [phone] F: [phone] Physical Therapy Plan of Care Date of Evaluation: Date of Surgery: 08/12/20 Diagnosis: ORIF left bimalleolar ankle fracture 08/12/20 Assessment: 70 YO FEMALE REF TO PT W H/O Rt KNEE BUCKLING AND SUSTAINING A FALL IN WHICH SHE FX Rt DISTAL FIBULA AND A Lt BIMALLEOLAR FX- SHE UNDERWENT ORIF LEFT ANKLE ON 08/12/20- SHE NOTES SHE WAS IN REHAB, TRANSITIONED FROM LEFT LE NWB TO CURRENT PRESENTATION OF WBAT LEFT LE W A CANE. Pt REPORTS SHE IS UNABLE TO DRIVE, DECR JUNAID TO PROLONGED STANDING, INCR GAIT/ STAIR MGMT, AND SHE HAS BEEN OOW SINCE HER FALL. OBJECTIVELY, Pt HAS DECR ROM IN TEE ANKLE DF AND EVER, TEE HIP ROTATION AND HS, DECR CORE AND PROX LEs STRENGTH, AND FLUCTUATING DISCOMFORT IN LEFT ANKLE. HER INCISIONAL SCARS ARE WELL HEALED W MILD HYPOMOBILITY IN LAT MALL SCAR - CURRENTLY SHE DOES NOT HAVE ANY EVIDENCE OF EDEMA. Pt WOULD BENEFIT FROM PT TO ADDRESS THE ABOVE - Pt IS MOTIVATED TO REGAIN HER FUNCTIONAL INDEPENEDENCE AND RTW IN SOME CAPACITY. Frequency and Duration: The patient will be seen 2 x WK x 5 WKS Short Term Goals: Pt DEMON IMPROVED AROM TEE ANKLE DF, TEE HS FLEXIB , AND HIP ROTAT IN 2 WKS Pt DEMON IMPROVED PROX LEs MM ACTIV W FUNCT TASKS W DECR UEs COMPENSATION IN 2 WKS Pt'S LEFT ANKLE PAIN DECR TO 2-3/10 W BASIC ADLs IN 2 WKS Child Adolescent Psychiatrist Goals: Pt INDEP W HEP STRENGTH PROGRESSION FOR TEE LEs AND SELF- SX MGMT TECHN IN 5 WKS Pt DEMON WFL GAIT MECH W/O ANY ASST DEVICE ON LEVEL GROUND AND STAIRS IN 5 WKS Pt RESUME HIGHER LEVEL ADLs EVIDENT W IMPROVED LEFI SCORE BY AT LEAST 10 POINTS ( AT EVAL ) IN 5 WKS Treatment Plan: Modalities to reduce pain, spasms and effusion. Manual therapy to restore motion and function. Therapeutic exercise to improve strength and flexibility. Neuromuscular re-education for posture and balance. Therapeutic activities to return to functional activities of daily living. Electronically signed by: Ivanna Johnson PT Please sign and return to therapist. Thank you for your referral.
== END 2021-04-22 11:09 | disposition home or self-care (01) ==
LOC: HO.PT 11:00
PROVIDERS: Visit Provider Orthopaedic Surgery
DX: Z98.890 Other specified postprocedural states (principal)
CPT/HCPCS: 97110; 97162; 97530

== ENCOUNTER 2021-05-24 13:49 | Outpatient (REF) | payer MEDICARE, SELFPAY | END 2021-05-24 13:50 | disposition home or self-care (01) | LOC: HO.LAB 13:49 | PROVIDERS: PCP Family Medicine | DX: R32 Unspecified urinary incontinence (principal); Z79.899 Other long term (current) drug therapy; Z87.442 Personal history of urinary calculi | CPT/HCPCS: 51798; 87086; 99202 ==

== ENCOUNTER 2021-05-28 13:14 | Outpatient (REF) | payer MEDICARE, MEDICAID, SELFPAY ==
--- NOTE | 2021-05-28 14:48 | PFT_ITS ---
INDICATION: Asthma. SPIROMETRY: FEV1 to FVC of 81% with an FEV1 of 1.31 L, which is 76% predicted, and FVC of 1.63 L which is 71% predicted. Post bronchodilator is a significant response to bronchodilators noted and also evidence of small airways disease. Maximum voluntary ventilation is 76% predicted. LUNG VOLUMES: Total lung capacity 77% predicted with an expiratory reserve volume of 32% predicted. DIFFUSION CAPACITY: 98% predicted. COMPARISON: PFTs in 2017. INTERPRETATION: No obstructive ventilatory defect. The patient did have a significant response to bronchodilators noted and also has evidence of small airway disease, consistent with history of asthma. The patient does have a mild decrease in maximum voluntary ventilation secondary to likely deconditioning. Lung volumes demonstrate a mild restrictive ventilatory defect, which may be due to an increased elevated BMI. Although, interstitial lung conditions cannot be ruled out. The patient does have a normal diffusion capacity. When compared to 2017, there is a significant decrease in the FVC, significant decrease in the FEV1, significant decrease in the total lung capacity, and a significant decrease in the diffusing capacity. Clinical correlation warranted. MD ANDREI Schaffer/SHEN / [id number]
== END 2021-05-28 13:15 | disposition home or self-care (01) ==
LOC: HO.RESP 13:14
PROVIDERS: PCP Family Medicine; Visit Provider Internal Medicine Pulmonary Disease
DX: J45.909 Unspecified asthma, uncomplicated (principal)
CPT/HCPCS: 94060; 94727; 94729

== ENCOUNTER 2021-06-04 11:56 | Outpatient (REF) | payer MEDICARE, MEDICAID, SELFPAY ==
--- NOTE | ~2021-06-04 | MM_ITS ---
EXAMINATION: MM SCREENING DIGITAL BREAST TOMOSYNTHESIS, BILATERAL CLINICAL INFORMATION: Screening. Asymptomatic. Remote history reduction mammoplasty, over 18 years ago. The lifetime risk of breast cancer based on the Tyrer-Cuzick Model is 8%. COMPARISON: Mammography: 12/20/2018, 07/28/2017, 06/22/2016 TECHNIQUE: Digital breast tomosynthesis is performed in both the craniocaudal and mediolateral oblique views along with computer-aided detection (CAD). Synthesized 2D images are generated from the tomosynthesis. FINDINGS: The breasts are almost entirely fatty (ACR BI-RADS breast composition Category a). There is no interval mass or architectural abnormality or abnormal calcifications. There are again multiple round, rim, predominantly dermal calcifications in the bilateral anterior breasts consistent with the prior reduction mammoplasty. The axilla and skin contours are unremarkable. No significant changes. MM/MM tomosynthesis screening BI IMPRESSION: No mammographic evidence of malignancy. ASSESSMENT: BI-RADS 2: Benign RECOMMENDATION: Routine annual mammography screening. This patient's information was entered into a reminder system with a target due date for their next mammogram.
== END 2021-06-04 11:57 | disposition home or self-care (01) ==
LOC: HO.MAMMO 11:56
PROVIDERS: PCP Family Medicine; Visit Provider Family Medicine
DX: Z12.31 Encounter for screening mammogram for malignant neoplasm of breast (principal)
CPT/HCPCS: 77063; 77067

== ENCOUNTER 2021-07-08 21:31 | Emergency (ER) | payer MEDICARE, MEDICAID, SELFPAY | END 2021-07-09 00:30 | disposition left against medical advice (07) | PROVIDERS: Emergency Provider Emergency Medicine | DX: M54.9 Dorsalgia, unspecified (principal); R06.02 Shortness of breath ==

== ENCOUNTER 2021-07-09 13:39 | Emergency (ER) | payer MEDICARE, MEDICAID, SELFPAY ==
--- NOTE | ~2021-07-09 | XR_ITS ---
EXAMINATION: XR CHEST CLINICAL INFORMATION: Back pain COMPARISON: Chest CT April 09, 2021 and chest x-ray July 26, 2020 TECHNIQUE: 2 views of the chest were obtained. FINDINGS: Cardiac silhouette is normal in size. Atherosclerotic disease of the aortic arch. The lungs are well aerated. There is no lobar consolidation. No pleural effusion or pneumothorax. Mild degenerative changes of the spine. Gastric sleeve noted. XR/XR chest 2V IMPRESSION: No acute pulmonary pathology.
--- NOTE | ~2021-07-09 | CT_ITS ---
EXAMINATION: CT ABDOMEN AND PELVIS WITHOUT CONTRAST CLINICAL INFORMATION: right flank pain . COMPARISON: 04/09/2021 CT scan the chest. TECHNIQUE: Multidetector volumetric imaging was performed from the superior aspect of the liver through the pubic symphysis without contrast per renal stone protocol. Sagittal and coronal reformatted images were obtained on the technologist workstation. This CT examination was performed using dose optimization techniques as appropriate, variously including the following: *Automated exposure control *Adjustment of mA and/or kV according to patient size (this includes techniques or standardized protocols for targeted exams where dose is matched to indication/reason for exam; i.e. extremities or head) *Use of iterative reconstruction technique DLP: 743 mGy-cm. FINDINGS: LUNG BASES: Small hiatal hernia seen above the patient's lap band. LIVER, GALLBLADDER, BILIARY TREE: The non-contrast liver is normal in size, shape, and attenuation. No focal hepatic lesion or biliary ductal dilatation is present. The gallbladder is unremarkable with no evidence of radiopaque gallstones, gallbladder wall thickening, or obvious pericholecystic inflammatory changes. PANCREAS: Unremarkable. SPLEEN: Unremarkable. ADRENAL GLANDS: Unremarkable. KIDNEYS AND URETERS: The kidneys are atrophic containing intrarenal calculi including a 1.2 cm calculi at the ureteropelvic junction and 2 intrarenal calculi is measuring 1.1 and 0.9 cm in size in the lower pole calyces. Although there is mild caliectasis I do not appreciate a definitive perinephric stranding. Contralateral right kidney unremarkable BLADDER: Unremarkable. Calcification just distal to the urethra may represent sequela of urethral bulking agent GASTROINTESTINAL TRACT: The colon is decompressed with scattered colonic diverticulosis but no evidence for diverticulitis. Normal-appearing appendix in the right lower quadrant. Visualized small bowel unremarkable. Lap band is again seen with a small hiatal hernia ABDOMINAL WALL: No significant hernia is appreciated. LYMPHOVASCULAR STRUCTURES: Vascular calcification within the aorta iliac system. No bulky adenopathy. PELVIC VISCERA: Unremarkable. OSSEUS STRUCTURES: Multilevel degenerative changes in the spine with mild compression deformity of T11 appears slightly more prominent from the 04/09/[address]/CT abdomen pelvis wo con IMPRESSION: Atrophic left kidney. There are 3 intrarenal calculi seen including a large calcification at the left ureteropelvic junction. There is hydronephrosis and caliectasis but no significant perinephric stranding suggesting the left UPJ calcification is nonocclusive. No distal ureteric calculi. Chronic appearing changes otherwise as described above.
[2021-07-09 13:50] VITALS: BP 150/82; PULSE 64; O2SAT 99
[2021-07-09 14:18] VITALS: BP 126/63; PULSE 76; RESP 19; TEMP 36.6; O2SAT 99; BMI 40.4
--- NOTE | 2021-07-09 16:40 | ED.BACK ---
HPI - Back Pain/Injury General Chief Complaint: Back Pain/Injury Stated Complaint: BACK PAIN Time Seen by Provider: 07/09/21 15:13 History of Present Illness HPI Narrative: Patient is a 71-year-old female with a history of back pain in the past history kidney stones in the past presents today with having right flank pain. The pain is not changed with movement. No fever . Positive coughing upper respiratory symptoms. Patient claims this is also very similar to when she had a pneumonia. Denies any diaphoresis. Pain is not made worse with deep breath. No leg swelling. No history of DVT. No history of cancer. Patient is from home. She is immunized for COVID x2. That the Moderna vaccine x2. Patient denies any focal weakness. Denies any diaphoresis. No changes in bowel movement. No nausea no vomiting Related Data Home Medications Medication Instructions Recorded Confirmed albuterol sulfate 90 mcg/actuation 2 puff PO Q4-6H PRN 06/08/20 03/22/21 aerosol inhaler baclofen 10 mg tablet 10 mg PO TID PRN 06/08/20 03/22/21 bupropion HCl 150 mg 24 hr tablet, 150 mg PO BEDTIME 06/08/20 03/22/21 extended release cholecalciferol (vitamin D3) 50 50 mcg PO QAM 06/08/20 03/22/21 mcg (2,000 unit) capsule docusate sodium 100 mg capsule 100 mg PO BEDTIME PRN 06/08/20 03/22/21 ferrous sulfate 325 mg (65 mg 325 mg PO BEDTIME 06/08/20 03/22/21 iron) tablet fluticasone propionate 110 2 puff PO BID 06/08/20 03/22/21 mcg/actuation HFA aerosol inhaler (Flovent HFA) gabapentin 100 mg capsule 100 mg PO TID 06/08/20 03/22/21 hydrochlorothiazide 25 mg tablet 25 mg PO QAM 06/08/20 03/22/21 melatonin 5 mg tablet 5 mg PO BEDTIME PRN 06/08/20 03/22/21 montelukast 10 mg tablet 10 mg PO DAILY 06/08/20 03/22/21 trazodone 150 mg tablet 150 mg PO BEDTIME 06/08/20 03/22/21 rosuvastatin 10 mg tablet 10 mg PO BEDTIME 08/11/20 03/22/21 calcium carbonate 200 mg calcium 200 mg PO BID 05/24/21 (500 mg) chewable tablet (Calcium Antacid) loratadine 10 mg tablet 10 mg PO BEDTIME 05/24/21 meloxicam 7.5 mg tablet 7.5 mg PO DAILY 05/24/21 topiramate 25 mg tablet 25 mg PO DAILY 05/24/21 trazodone 100 mg tablet 100 mg PO BEDTIME 05/24/21 Previous Rx's Medication Instructions Recorded acetaminophen 650 mg rectal 650 mg MS Q6H PRN 30 Days #240 ea 07/28/20 suppository enoxaparin 40 mg/0.4 mL 40 mg (0.4 mL) SUBCUT Q24H 30 Days 08/13/20 subcutaneous syringe #12 ml fluticasone furoate 200 1 inh INHALATION DAILY 30 Days #1 04/14/21 mcg-vilanterol 25 mcg/dose ea inhalation powder (Breo Ellipta) desmopressin 0.2 mg tablet 0.4 mg PO BEDTIME 90 Days #180 tab 06/21/21 cyclobenzaprine 10 mg tablet 10 mg PO TID PRN #14 tab 07/09/21 Allergies Allergy/AdvReac Type Severity Reaction Status Date / Time prednisone [PREDNISONE] Allergy Severe AGITATION Verified 05/24/21 13:52 Review of Systems Review of Systems: Positive cough upper respiratory symptoms Positive right flank pain All system reviewed otherwise negative PMFSH Past Medical History Attestation statement: The following information was validated with the patient. Medical History Constipation by delayed colonic transit Depression Dyslipidemia Essential hypertension Fall History of broken leg Hypovitaminosis D Insomnia Iron deficiency anemia Moderate asthma Osteoporosis Renal calculi Urinary incontinence Surgical History H/O: section Hx of breast reduction, elective Hx of laparoscopic gastric banding Family History Family History Father No problems noted. Mother Breast cancer Sister Diabetes Heart attack Maternal Grandmother Brain cancer Social History Social History Household Members: None Housing: Apartment Do you presently have visiting nurse or other home services: No Alcohol intake: never Patient Tobacco Use Status: Former Tobacco user Quit Date: 1998 Tobacco use type: Cigarette Cigarette Packs Per Day: 1 Advance Directives: No Advance Directives Information Provided: Yes service: No Current occupational status: unemployed Physical Exam Vital Signs: Vital Signs: Last Vital Signs Temp 98 F 07/09/21 14:18 Pulse 76 07/09/21 14:18 Resp 16 07/09/21 18:38 BP 126/63 07/09/21 14:18 Pulse Ox 99 07/09/21 14:18 BMI result Body Mass Index 40.4 Appearance: Alert. Oriented X3. No acute distress. Eyes: Pupils equal, round and reactive to light. ENT: Pharynx normal. Neck: Normal inspection. Neck supple. No lymph nodes noted. No crepitus CVS: Normal heart rate and rhythm. Pulses normal. Normal S1 and S2 Respiratory: No respiratory distress. Breath sounds normal. No Wheezing. No rales Abdomen: Soft and nontender. No rigidity. No distention. good BS x4 Skin: Skin warm and dry. Normal skin color. Normal skin turgor. Extremities: No lower extremity edema. Neurovascular intact to all extremities. No Lacerations. No Rash Neuro: Oriented X 3. No motor deficit. No sensory deficit. Moving all extermities. No slurred speech MDM - Back Pain/Injury MDM Narrative Medical decision making narrative: CT scan of the abdomen showed no acute evidence of abdominal aortic aneurysm. It did show a left-sided calcification around the renal pelvis. Patient in no distress. White count was normal. COVID test was negative. Creatinine is normal. Patient's pain is on the right side not sure if the right calcification is the cause of patient's pain. Will have patient follow up [facility] urology anyway. Urine showed no evidence of infection only contamination will have patient follow-up on an outpatient basis. Tylenol for pain. Muscle relaxant for back pain. Follow-up for Chronic stone on the left side. Medical Records Attestation: I reviewed the patient's medical records. Lab Data Attestation: I reviewed the patient's lab results. Result diagrams: 07/09/21 17:39 07/09/21 17:39 Labs: Lab Results 07/09/21 07/09/21 07/09/21 Range/Units 17:39 17:39 17:39 WBC 6.4 (4.8-10.8) X10*3/uL RBC 3.73 L (4.20-5.50) X10*6/uL Hgb 11.6 L (12.0-16.0) g/dl Hct 35.2 L (37.0-47.0) % MCV 94.4 (80.0-98.0) fL MCH 31.1 (27.0-33.0) pg MCHC 33.0 (31.0-35.0) g/dl RDW 13.7 (11.0-16.0) % Plt Count 262 (160-400) X10*3/uL MPV 8.8 L (9.4-12.3) fL Immature Gran % (Auto) 0.2 (0.0-0.4) % Neut % (Auto) 69.2 (45-73) % Lymph % (Auto) 24.0 (20-40) % [place] % (Auto) 6.1 (2-11) % Eos % (Auto) 0.0 (0-4) % Baso % (Auto) 0.5 (0-2) % Lymph # (Auto) 1.5 (1.2-4.9) X10*3/uL [place] # (Auto) 0.4 (0.1-1.2) X10*3/uL Eos # (Auto) 0.0 (0.0-0.4) X10*3/uL Baso # (Auto) 0.0 (0.0-0.2) X10*3/uL Abs Immat Gran (auto) 0.01 (0.00-0.03) X10*3/uL Absolute Neuts (auto) 4.5 (2.0-8.3) x10*3/uL Absolute Nucleated RBC 0.000 (0.0-0.012) X10*3/uL Nucleated RBC % (auto) 0.0 (0.0-0.2) /100WBC Sodium 137 (135-145) mmol/L Potassium 4.5 D (3.3-5.1) mmol/L Chloride 100 (96-108) mmol/L Carbon Dioxide 31 H (22-29) mmol/L Anion Gap 11 L (12-20) BUN 14 (9-16) mg/dL Creatinine 0.96 (0.5-1.4) mg/dL Estim Creat Clear Calc 51.2 Estimated GFR 57 Random Glucose 89 (60-115) mg/dL Calcium 9.1 (8.4-10.2) mg/dL Urine Color Urine Appearance Urine pH (5.0-8.0) Ur Specific [place] (1.005-1.025) Urine Protein (NEG-TRACE) MG/DL Urine Glucose (UA) (NEG) MG/DL Urine Ketones (NEG) MG/DL Urine Blood (NEG) Urine Nitrite (NEG) Ur Leukocyte Esterase (NEG) Urine RBC (0) /HPF Urine WBC (0-4) /HPF Ur Squamous Epith Cells /LPF Urine Bacteria /LPF COVID-19 ([facility]) Negative (Negative) COVID-19 Clin Com See Note 07/09/21 Range/Units 17:50 WBC (4.8-10.8) X10*3/uL RBC (4.20-5.50) X10*6/uL Hgb (12.0-16.0) g/dl Hct (37.0-47.0) % MCV (80.0-98.0) fL MCH (27.0-33.0) pg MCHC (31.0-35.0) g/dl RDW (11.0-16.0) % Plt Count (160-400) X10*3/uL MPV (9.4-12.3) fL Immature Gran % (Auto) (0.0-0.4) % Neut % (Auto) (45-73) % Lymph % (Auto) (20-40) % [place] % (Auto) (2-11) % Eos % (Auto) (0-4) % Baso % (Auto) (0-2) % Lymph # (Auto) (1.2-4.9) X10*3/uL [place] # (Auto) (0.1-1.2) X10*3/uL Eos # (Auto) (0.0-0.4) X10*3/uL Baso # (Auto) (0.0-0.2) X10*3/uL Abs Immat Gran (auto) (0.00-0.03) X10*3/uL Absolute Neuts (auto) (2.0-8.3) x10*3/uL Absolute Nucleated RBC (0.0-0.012) X10*3/uL Nucleated RBC % (auto) (0.0-0.2) /100WBC Sodium (135-145) mmol/L Potassium (3.3-5.1) mmol/L Chloride (96-108) mmol/L Carbon Dioxide (22-29) mmol/L Anion Gap (12-20) BUN (9-16) mg/dL Creatinine (0.5-1.4) mg/dL Estim Creat Clear Calc Estimated GFR Random Glucose (60-115) mg/dL Calcium (8.4-10.2) mg/dL Urine Color YELLOW Urine Appearance CLEAR Urine pH 8.0 (5.0-8.0) Ur Specific [place] 1.015 (1.005-1.025) Urine Protein NEG (NEG-TRACE) MG/DL Urine Glucose (UA) NEG (NEG) MG/DL Urine Ketones NEG (NEG) MG/DL Urine Blood 1+ H (NEG) Urine Nitrite NEG (NEG) Ur Leukocyte Esterase TRACE H (NEG) Urine RBC 5-9 H (0) /HPF Urine WBC 1-4 (0-4) /HPF Ur Squamous Epith Cells 2+ /LPF Urine Bacteria 2+ /LPF COVID-19 ([facility]) (Negative) COVID-19 Clin Com Discharge Plan Discharge Clinical Impression: Renal calculi, Back pain Patient Disposition: Home, Self-Care Instructions: Renal Colic (ED), Acute Low Back Pain (ED) Additional Instructions: in your left kidney there appears to be a chronic kidney stone in the left renal pelvis. Please follow-up with urology on an outpatient basis. Muscle relaxant was prescribed you for back pain. Prescriptions: New cyclobenzaprine 10 mg tablet 10 mg PO TID PRN (Reason: pain) Qty: 14 0RF No Action desmopressin 0.2 mg tablet 0.4 mg PO BEDTIME 90 Days Qty: 180 3RF acetaminophen 650 mg Suppository 650 mg MS Q6H PRN (Reason: Pain, Mild (Pain Scale 1-3)) 30 Days Qty: 240 0RF enoxaparin 40 mg/0.4 mL Syringe 40 mg subcut Q24H 30 Days Qty: 12 0RF albuterol sulfate 90 mcg/actuation HFA aerosol inhaler 2 puff PO Q4-6H PRN (Reason: Wheezing) 0RF Flovent HFA 110 mcg/actuation HFA aerosol inhaler 2 puff PO BID 0RF baclofen 10 mg tablet 10 mg PO TID PRN (Reason: muscle spasm) 0RF ferrous sulfate 325 mg (65 mg iron) tablet 325 mg PO BEDTIME 0RF hydrochlorothiazide 25 mg tablet 25 mg PO QAM 0RF gabapentin 100 mg capsule 100 mg PO TID 0RF montelukast 10 mg tablet 10 mg PO DAILY 0RF melatonin 5 mg tablet 5 mg PO BEDTIME PRN (Reason: insomnia) 0RF cholecalciferol (vitamin D3) 50 mcg (2,000 unit) capsule 50 mcg PO QAM 0RF bupropion HCl 150 mg tablet extended release 24 hr 150 mg PO BEDTIME 0RF docusate sodium 100 mg capsule 100 mg PO BEDTIME PRN (Reason: constipation) 0RF trazodone 150 mg tablet 150 mg PO BEDTIME 0RF rosuvastatin 10 mg tablet 10 mg PO BEDTIME 0RF loratadine 10 mg tablet 10 mg PO BEDTIME 0RF trazodone 100 mg tablet 100 mg PO BEDTIME 0RF calcium carbonate [Calcium Antacid] 200 mg calcium (500 mg) tablet,chewable 200 mg PO BID 0RF meloxicam 7.5 mg tablet 7.5 mg PO DAILY 0RF topiramate 25 mg tablet 25 mg PO DAILY 0RF Breo Ellipta 200-25 mcg/dose blister with device 1 inh inhalation DAILY 30 Days Qty: 1 6RF Referrals: Eric Nogueira MD [Physician] - Vivian Massey DO [Primary Care Provider] -
[2021-07-09 17:43] LABS: MANUAL DIFF FLAG NO
[2021-07-09 17:48] LABS: Basophils Percent Auto 0.5 % (0-2); Hematocrit 35.2 % (37.0-47.0); Hemoglobin 11.6 g/dl (12.0-16.0); Imm Gran Abs Auto 0.01 X10*3/uL (0.00-0.03); Imm Gran Pct Auto 0.2 % (0.0-0.4); Lymphocytes Absolute Auto 1.5 X10*3/uL (1.2-4.9); Mean Corpuscular Hemoglobin 31.1 pg (27.0-33.0); Mean Corpuscular Volume 94.4 fL (80.0-98.0); Mean Platelet Volume 8.8 fL (9.4-12.3); Monocytes Absolute Auto 0.4 X10*3/uL (0.1-1.2); Monocytes Percent Auto 6.1 % (2-11); Neutrophils Absolute Auto 4.5 x10*3/uL (2.0-8.3); Neutrophils Percent Auto 69.2 % (45-73); Platelet Count 262 X10*3/uL (160-400); Red Blood Count 3.73 X10*6/uL (4.20-5.50); Red Cell Distribution Width 13.7 % (11.0-16.0); White Blood Count 6.4 X10*3/uL (4.8-10.8)
[2021-07-09 17:57] LABS: Appearance Urine CLEAR; Color Urine YELLOW; Glucose Urine UA NEG (NEG); Leukocyte Esterase Urine TRACE (NEG); Nitrite Urine NEG (NEG); Specific Gravity - Urine 1.015 (1.005-1.025); UACC Culture Trigger NO; Urine Blood 1+ (NEG); Urine Ketones NEG (NEG); Urine Protein NEG (NEG-TRACE)
[2021-07-09 17:57] LABS: Anion Gap 11 (12-20); Blood Urea Nitrogen 14 mg/dL (9-16); Calcium 9.1 mg/dL (8.4-10.2); Carbon Dioxide 31 mmol/L (22-29); Chloride 100 mmol/L (96-108); Creatinine Clr Calc Pharmacy 51.2; Estimated Glomerular Filt Rate 57; Glucose Random 89 mg/dL (60-115); Potassium 4.5 mmol/L (3.3-5.1); Sodium 137 mmol/L (135-145)
[2021-07-09 17:58] LABS: COVID-19 Test Negative (Negative); IDNOW Serial# 16C4AD1C
[2021-07-09 18:18] LABS: Bacteria Urine 2+ /LPF; Squamous Epithelial Cell Urine 2+ /LPF
[2021-07-09 18:38] VITALS: RESP 16
[2021-07-09] MEDS: oxyCODONE HCl Immed Release 5 MG TABLET PO (19:59)
== END 2021-07-09 20:07 | disposition home or self-care (01) ==
PROVIDERS: Emergency Provider Emergency Medicine Emergency Medical Services; PCP Family Medicine
DX: N20.0 Calculus of kidney (principal); M54.50 Low back pain, unspecified; Z79.899 Other long term (current) drug therapy; Z20.822 Contact with and (suspected) exposure to COVID-19; Z87.891 Personal history of nicotine dependence
CPT/HCPCS: 71046; 74176; 80048; 81001; 85025; 87635; 99284

== ENCOUNTER → 2021-10-26 09:54 | Outpatient (BNVA) | payer MEDICARE, MEDICAID, SELFPAY | PROVIDERS: PCP Family Medicine; Visit Provider Nurse Practitioner Family | DX: M53.9 Dorsopathy, unspecified (principal); M47.819 Spondylosis without myelopathy or radiculopathy, site unspecified; M48.061 Spinal stenosis, lumbar region without neurogenic claudication; M53.3 Sacrococcygeal disorders, not elsewhere classified; S22.080A Wedge compression fracture of T11-T12 vertebra, initial encounter for closed fracture | CPT/HCPCS: 99202 ==

== ENCOUNTER 2021-11-01 08:35 | Outpatient (REF) | payer MEDICARE, MEDICAID, SELFPAY ==
--- NOTE | ~2021-11-01 | XR_ITS ---
EXAMINATION: XR AP KNEE, BILATERAL XR KNEE 2 VIEWS, RIGHT CLINICAL INFORMATION: Pain knee. COMPARISON: None. TECHNIQUE: AP bilateral knee standing. Right knee 2 views. FINDINGS: AP Bilateral Knee: There is severe loss of medial compartment joint space with periarticular spurring right knee. There is [id number] loss of compartment joint space left knee. The lateral compartment bilateral knees normal. No loose bodies, bony erosive changes or fracture seen. Right Knee: The patellofemoral compartment joint space is reduced without bony spurring or bony erosive changes. The soft tissues are normal. XR/XR knee RT 2V IMPRESSION: Severe degenerative arthritic changes medial compartment right knee and [id number] degenerative changes medial compartment left knee joint. There is no visible acute fracture or dislocation seen either knee. There is moderate loss of patellofemoral compartment joint space right knee with no visible fracture or dislocation, loose bodies or joint effusion.
--- NOTE | ~2021-11-01 | XR_ITS ---
EXAMINATION: XR AP KNEE, BILATERAL XR KNEE 2 VIEWS, RIGHT CLINICAL INFORMATION: Pain knee. COMPARISON: None. TECHNIQUE: AP bilateral knee standing. Right knee 2 views. FINDINGS: AP Bilateral Knee: There is severe loss of medial compartment joint space with periarticular spurring right knee. There is whqrwbza-[id number] loss of compartment joint space left knee. The lateral compartment bilateral knees normal. No loose bodies, bony erosive changes or fracture seen. Right Knee: The patellofemoral compartment joint space is reduced without bony spurring or bony erosive changes. The soft tissues are normal. XR/XR knee standing BI IMPRESSION: Severe degenerative arthritic changes medial compartment right knee and [id number] degenerative changes medial compartment left knee joint. There is no visible acute fracture or dislocation seen either knee. There is moderate loss of patellofemoral compartment joint space right knee with no visible fracture or dislocation, loose bodies or joint effusion.
== END 2021-11-01 08:36 | disposition home or self-care (01) ==
LOC: HO.HOSX 08:35
PROVIDERS: Visit Provider Orthopaedic Surgery
DX: M17.11 Unilateral primary osteoarthritis, right knee (principal)
CPT/HCPCS: 73560; 73565; 99212

== ENCOUNTER 2021-12-07 12:25 | Outpatient (REF) | payer MEDICARE, MEDICAID, SELFPAY ==
--- NOTE | ~2021-12-07 | MM_ITS ---
EXAMINATION: BONE DENSITOMETRY CLINICAL INDICATION: Osteoporosis. COMPARISON: Previous BD dated 01/06/2015 and baseline BD dated 12/29/2009. CT abdomen and pelvis 07/09/2021. TECHNIQUE: Using a [employer] DXA System (software version: 13.1) manufactured by [employer], dual-energy x-ray absorptiometry was performed of the lumbar spine and left hip. The images are of good technical quality. Summary results are attached. FINDINGS: AP SPINE L1-L4 (excluding L2 and L3): The data of L1-L4 has been changed to exclude the L2 and L3 vertebral bodies because gastric lap band valve overlies this area and may cause overestimation of the lumbar spine density. Current: BMD 0.901 g/cm2, Z-score -1.3, T-score -2.2, osteopenia. Prior: BMD 0.987 g/cm2. Baseline: BMD 1.004 g/cm2. LEFT FEMUR, NECK: Current: BMD 0.585 g/cm2, Z-score -1.9, T-score -3.3, osteoporosis. Prior: BMD 0.695 g/cm2. Baseline: BMD 0.793 g/cm2. LEFT FEMUR, TOTAL: Current: BMD 0.696 g/cm2, Z-score -1.4, T-score -2.5, osteoporosis, 14.7% decrease from previous, 22.1% decrease from baseline (<5% change is not significant). Prior: BMD 0.816 g/cm2. Baseline: BMD 0.894 g/cm2. IDENTIFIED RISK FACTORS: Rheumatoid arthritis, osteoporosis, history of fracture (adult), height loss, low calcium intake, menopause. HISTORY OF FRACTURE: Other. MEDICATIONS: Calcium supplements or multivitamin, vitamin D. MM/XR DEXA axial skeleton IMPRESSION: 1. DIAGNOSIS: Osteoporosis based on the lowest T-score value of -3.3 in the femoral neck applying World Health Organization criteria. 2. 10-YEAR FRACTURE RISK PREDICTION, FRAX: According to the guidelines, FRAX calculation should only be performed on patients in the osteopenia bone density category. Therefore, FRAX was not performed on this patient. 3. Treatment Recommendations: NOF guidelines recommend consideration for treatment in postmenopausal women and men age 50 and older presenting with the following: -A hip or vertebral (clinical or morphometric) fracture. -T-score less than or equal to -2.5 at the femoral neck or spine after appropriate evaluation to exclude secondary causes. -Low bone mass at the hip or spine and a 10-year fracture probability by FRAX of greater than or equal to 3% for hip fracture or greater than or equal to 20% for major osteoporotic fracture based on the [place] adapted WHO algorithm. 4. Other Recommendations: All treatment decisions require clinical judgment and consideration of individual patient factors, including patient preferences, comorbidities, previous drug use, risk factors not captured in the FRAX model (e.g. frailty, falls, vitamin D deficiency, increased bone turnover, interval significant decline in bone density) and possible under or overestimation of fracture risk by FRAX. Additional medical evaluation for secondary cause of low bone mineral density may be appropriate. FUTURE SCAN RECOMMENDATION: People with diagnosed cases of osteoporosis or at high risk for fracture should have regular bone mineral density tests. For patients eligible for Medicare, routine testing is allowed once every 2 years. The testing frequency can be increased to one year for patients who have rapidly progressing disease, those who are receiving or discontinuing medical therapy to restore bone mass, or have additional risk factors.
== END 2021-12-07 12:26 | disposition home or self-care (01) ==
LOC: HO.MAMMO 12:25
PROVIDERS: PCP Family Medicine; Visit Provider Family Medicine
DX: Z13.820 Encounter for screening for osteoporosis (principal); M81.0 Age-related osteoporosis without current pathological fracture; Z78.0 Asymptomatic menopausal state
CPT/HCPCS: 77080

== ENCOUNTER 2021-12-08 09:58 | Outpatient (REF) | payer MEDICARE, MEDICAID, SELFPAY ==
--- NOTE | ~2021-12-08 | US_ITS ---
EXAMINATION: US RETROPERITONEAL LIMITED (RENAL ONLY) CLINICAL INFORMATION: Calculus of kidney. COMPARISON: CT abdomen pelvis 07/09/2021. TECHNIQUE: Real-time imaging of the kidneys. FINDINGS: RIGHT KIDNEY: 10.4 x 4.3 x 4.9 cm (SAG x AP x TRV). The kidney is normal in size, contour, and echogenicity. Renal cortical thickness is normal. No calculi or focal parenchymal lesions. No hydronephrosis. LEFT KIDNEY: 9.2 x 4.1 x 2.8 cm (SAG x AP x TRV). The kidney is normal in size, contour, and echogenicity. Mild cortical thinning suspected. Renal cortical thickness is normal. No renal focal parenchymal lesions. Multiple calculi are seen. There is a midpole 0.8 cm calculus. There is also a midpole 1.2 cm calculus. Ureteral jets are not visualized. US/US renal BI IMPRESSION: There are prominent left renal calculi. No hydronephrosis noted. Appearance corresponds with the calculi seen on prior CT..
--- NOTE | ~2021-12-08 | CT_ITS ---
EXAMINATION: CT CHEST WITHOUT CONTRAST CLINICAL INFORMATION: Other nonspecific abnormal findings of lung field. COMPARISON: None TECHNIQUE: Multidetector volumetric CT imaging of the chest was done. Axial MIP volume rendering provided. Sagittal and coronal reformatted images were obtained. This CT examination was performed using dose optimization techniques as appropriate, variously including the following: *Automated exposure control *Adjustment of mA and/or kV according to patient size (this includes techniques or standardized protocols for targeted exams where dose is matched to indication/reason for exam; i.e. 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 LUNGS: Previously visualized 4 mm nodule left upper lobe on previous exam 04/09/2021 image 102/6 is not visualized. Small peribronchial nodules in the left upper lobe on image 110/6 on the previous exam are not visualized either. There is a 2 mm nodule in left upper lobe axial image 133/7 which appears stable. Small peribronchial nodules right lower lobe seen on the previous exam are not seen at this time. There is no nodule seen in left lower lobe either. No new nodules visualized. No ground-glass density seen either. MEDIASTINUM: The thyroid lobes are symmetrical and normal. The central trachea and the bronchi are widely patent. Heart size and the great vessels are normal caliber. There is atherosclerotic calcification of aortic arch. CORONARY ARTERY CALCIFICATION: None visualized on this study. PLEURA: There is no pleural effusion. No pleural mass or thickening. AXILLA: No abnormal axillary lymph node seen. UPPER ABDOMEN: Visualized liver, spleen, pancreas and bilateral adrenal glands unremarkable. No radiopaque gallstone seen. Left parapelvic renal cyst. There is a gastric Lap-Band noted as well with a small hiatal hernia. OSSEOUS STRUCTURES: There is a compression deformity T11 vertebra, new since the last exam 04/09/2021. CT/CT chest wo IV con IMPRESSION: Since the previous exam multiple pulmonary nodules and ground-glass attenuation seen in the left upper lobe and nodules in the left lower lobe have resolved. There is a small pleural nodule in the left upper lobe which appears stable. No abnormal mediastinal, hilar or axillary lymphadenopathy seen. New acute T11 compression fracture. Fleischner guidelines were followed.
== END 2021-12-08 09:59 | disposition home or self-care (01) ==
LOC: HO.US 09:58
PROVIDERS: Visit Provider Internal Medicine Pulmonary Disease
DX: N20.0 Calculus of kidney (principal); R91.8 Other nonspecific abnormal finding of lung field
CPT/HCPCS: 71250; 76775

== ENCOUNTER 2022-01-05 13:24 | Outpatient (REF) | payer MEDICARE, MEDICAID, SELFPAY ==
[2022-01-05 13:53] LABS: Hematocrit 38.5 % (37.0-47.0); Mean Corpuscular HGB Conc 33.8 g/dl (31.0-35.0); Mean Corpuscular Hemoglobin 32.5 pg (27.0-33.0); Mean Corpuscular Volume 96.3 fL (80.0-98.0); Platelet Count 227 X10*3/uL (160-400); Red Cell Distribution Width 12.8 % (11.0-16.0); White Blood Count 5.5 X10*3/uL (4.8-10.8)
[2022-01-05 13:59] LABS: INTERNATIONAL NORM RATIO 0.9 (0.9-1.1); Prothrombin Time 10.6 SEC (10.0-13.1)
[2022-01-05 14:02] LABS: Partial Thromboplastin Time 24.3 SEC (26.0-36.4)
[2022-01-05 14:22] LABS: Anion Gap 15 (12-20); Blood Urea Nitrogen 18 mg/dL (9-16); Calcium 9.9 mg/dL (8.4-10.2); Carbon Dioxide 31 mmol/L (22-29); Chloride 95 mmol/L (96-108); Estimated Glomerular Filt Rate 39; Glucose Random 83 mg/dL (60-115); Potassium 4.1 mmol/L (3.3-5.1); Sodium 137 mmol/L (135-145)
== END 2022-01-05 13:25 | disposition home or self-care (01) ==
LOC: HO.LAB 13:24
PROVIDERS: PCP Family Medicine; Visit Provider Family Medicine
DX: Z01.818 Encounter for other preprocedural examination (principal)
CPT/HCPCS: 36415; 80048; 85027; 85610; 85730

== ENCOUNTER → 2022-01-06 11:30 | Outpatient (BNVA) | payer MEDICARE, MEDICAID, SELFPAY | PROVIDERS: PCP Family Medicine; Visit Provider Physician Assistant | DX: M17.11 Unilateral primary osteoarthritis, right knee (principal) | CPT/HCPCS: 99212 ==

== ENCOUNTER 2022-01-11 05:59 | Inpatient (IN) | payer MEDICARE, MEDICAID, SELFPAY ==
--- NOTE | 2022-01-05 | ECG_ITS ---
Test Reason : PRE-OP Blood Pressure : / mmHG Vent. Rate : 084 BPM Atrial Rate : 084 BPM P-R Int : 160 ms QRS Dur : 086 ms QT Int : 362 ms P-R-T Axes : 073 -31 -04 degrees QTc Int : 427 ms Normal sinus rhythm Left anterior fascicular block Nonspecific ST abnormality Abnormal ECG When compared with ECG of 26-JUL-2020 14:12, Nonspecific ST abnormality is new Referred By: Rosa Higgins Electronically Signed By:ERIKA MOONEY MD
[2022-01-05 12:23] VITALS: BP 122/62; PULSE 82; RESP 20; O2SAT 94; BMI 39.4
--- NOTE | 2022-01-05 12:50 | P.CONAN_ITS ---
Documented by User: Ayla Hendricks NP 01/10/22 10:36 HPI - Anesthesia Eval Consult details Narrative: 71yo F for Right Knee Replacement Total PCP Cleared T11 compression fx Current with odor urine. Will check UA with reflex culture. Negative for infectious process PMFSH Active Problems Active Problems: All Active Problems (Updated 01/04/22 @ 09:30 by Rowan Sandoval RN) Bimalleolar ankle fracture (Acute) Ankle fracture, lateral malleolus, closed (Acute) Status post open reduction with internal fixation (ORIF) of fracture of ankle (Acute) IgA monoclonal gammopathy (Chronic) CHERRIE (obstructive sleep apnea) (Acute) Pulmonary nodules (Acute) Multilevel degenerative disc disease (Acute) Facet arthropathy, multilevel (Acute) Compression fracture of T11 vertebra (Acute) Stenosis, spinal, lumbar (Acute) Sacroiliac joint pain (Acute) Osteoarthritis of right knee (Acute) Urinary incontinence (Acute) Moderate asthma (Acute) Renal calculi (Acute) Osteoporosis (Acute) Hypovitaminosis D (Acute) Constipation by delayed colonic transit (Acute) Iron deficiency anemia (Acute) Past Medical History Medical History (Updated 01/06/22 @ 16:34 by Rosa Higgins PA-C) Anxiety Asthma Constipation by delayed colonic transit DDD (degenerative disc disease) Depression Dyslipidemia Essential hypertension Fall History of anemia History of broken leg Hypovitaminosis D Insomnia Iron deficiency anemia Lumbar stenosis Moderate asthma Osteoarthritis of right knee Osteoporosis Renal calculi Thoracic compression fracture Urinary incontinence Family History Family History Father No problems noted. Mother Breast cancer Sister Diabetes Heart attack Maternal Grandmother Brain cancer Family history of problems with anesthesia: No Surgical History Surgical History H/O: section History of bladder suspension procedure History of lithotripsy History of repair of rectocele History of tonsillectomy Hx of breast reduction, elective Hx of laparoscopic gastric banding Status post open reduction with internal fixation (ORIF) of fracture of ankle History of Problems with Anesthesia: No Social History Social History Household Members: None Household Members Other:: 1 Housing: Apartment Are you a primary healthcare consultant to a significant other at home: No Do you presently have visiting nurse or other home services: No Alcohol intake: never Patient Tobacco Use Status: Former Tobacco user Quit Date: 23 yrs ago Tobacco use type: Cigarette Cigarette Packs Per Day: 1 Second Hand Smoke Exposure: No Use of substances other than those prescribed or required for medical reasons: No Have you been hit, kicked, punched, or otherwise hurt by someone within the past year? If so, by whom?: No Do you feel safe in your current relationship?: Yes Is there a partner from a previous relationship who is making you feel unsafe now?: No Are you made to feel afraid or neglected: No Are you DNR?: No Advance Directives: No Advance Directives Information Provided: Yes (Son) Advance Directives on File: Yes Advance Directives Date on File: 06/03/16 Do you have thoughts of harming others: None Do you have a plan to hurt others: No Plan Recently lost weight without trying: No How much weight loss: 2-13 pounds Eating poorly because of decreased appetite: No Nutrition screen score: 1 Nutrition Risks: No Nutritional Risk Patient : No : No Poor oral hygiene: No service: No Current occupational status: unemployed Narrative Narrative: No recent illness No CP/SOB with minimal activity Meds Allergies Allergy/AdvReac Type Severity Reaction Status Date / Time prednisone [PREDNISONE] Allergy Severe AGITATION Verified 01/04/22 09:44 Home Medications Medication Instructions Recorded Confirmed Last Taken Type albuterol sulfate 90 mcg/actuation 2 puff PO Q4-6H PRN Wheezing 06/08/20 01/04/22 01/11/22 History aerosol inhaler bupropion HCl 150 mg 24 hr tablet, 150 mg PO BEDTIME depressive 06/08/20 01/04/22 07/25/20 History extended release disorder cholecalciferol (vitamin D3) 50 50 mcg PO QAM 06/08/20 01/04/22 07/25/20 History mcg (2,000 unit) capsule docusate sodium 100 mg capsule 100 mg PO BEDTIME PRN constipation 06/08/20 01/04/22 07/25/20 History ferrous sulfate 325 mg (65 mg 325 mg PO BEDTIME 06/08/20 01/04/22 07/25/20 History iron) tablet hydrochlorothiazide 25 mg tablet 25 mg PO QAM blood pressure 06/08/20 01/04/22 07/24/20 History melatonin 5 mg tablet 10 mg PO BEDTIME PRN insomnia 06/08/20 01/11/22 07/25/20 History montelukast 10 mg tablet 10 mg PO DAILY 06/08/20 01/04/22 Unknown History rosuvastatin 10 mg tablet 10 mg PO BEDTIME 08/11/20 01/04/22 Unknown History calcium carbonate 200 mg calcium 200 mg PO BID 05/24/21 01/04/22 Unknown History (500 mg) chewable tablet (Calcium Antacid) loratadine 10 mg tablet 10 mg PO BEDTIME allergies 05/24/21 01/04/22 Unknown History trazodone 100 mg tablet 100 mg PO BEDTIME 05/24/21 01/04/22 Unknown History semaglutide 0.25 mg or 0.5 mg (2 0.25 mg subcut QWEEK 10/26/21 01/04/22 Unknown History mg/1.5 mL) subcutaneous pen injector (Ozempic) tramadol 50 mg tablet 50 mg PO BID PRN Pain 10/26/21 01/04/22 Unknown History amitriptyline 10 mg tablet 1 tab PO BEDTIME 01/05/22 01/05/22 Unknown History baclofen 10 mg tablet 1 tab PO TID PRN muscle spasm 01/05/22 01/05/22 Unknown History fluticasone propionate 50 2 spray intranasal DAILY PRN 01/05/22 01/05/22 Unknown History mcg/actuation nasal constipation spray,suspension acetaminophen 650 mg 1 tab PO Q8H PRN fever 01/11/22 01/11/22 Unknown History tablet,extended release Exam Exam Date and Time: January 05, 2022 1250 Height,Weight and Vital Signs: Height 4 ft 11.25 in Weight 89.358 kg Last Vital Signs Pulse 82 01/05/22 12:23 Resp 20 01/05/22 12:23 BP 122/62 01/05/22 12:23 Pulse Ox 94 01/05/22 12:23 O2 Del Method 01/05/22 12:23 Pertinent Lab Results Pertinent Lab Results: Lab Results 01/05/22 01/05/22 01/05/22 Range/Units 13:35 16:05 Unknown Urine Color Yellow Urine Appearance Clear Urine pH 6.5 (5.0-9.0) Ur Specific [place] 1.020 (1.005-1.025) Urine Protein Negative (Neg-Trace) mg/dL Urine Glucose (UA) Negative (Negative) mg/dL Urine Ketones Negative (Negative) mg/dL Urine Blood Small (1+) H (Negative) Urine Nitrite Negative (Negative) Ur Leukocyte Esterase Trace H (Negative) Urine RBC 6-10 H (0-2) /HPF Urine WBC 0-5 (0-5) /HPF Ur Squamous Epith Cells 0-2 (0-2) /HPF Calcium Oxalate Crystal Present Urine Bacteria None Seen (None Seen) Hyaline Casts 0-2 (0-2) /LPF Nasal Screen MRSA (PCR) POSITIVE A (Negative) Nasal S. aureus Screen POSITIVE A (Negative) Nasal MRSA/S.aureus Interp SEE NOTE Blood Type A Positive Antibody Screen NEGATIVE Laboratory Tests 01/05/22 01/05/22 13:42 13:42 WBC 5.5 Hgb 13.0 Hct 38.5 Plt Count 227 Sodium 137 Potassium 4.1 Chloride 95 L Carbon Dioxide 31 H BUN 18 H Creatinine 1.32 Narrative Narrative: EKG 12/2021 Vent. Rate : 084 BPM ? ? Atrial Rate : 084 BPM ?? P-R Int : 160 ms? QRS Dur : 086 ms ? ? QT Int : 362 ms ? ? ? P-R-T Axes : 073 -31 -04 degrees ?? QTc Int : 427 ms ? Normal sinus rhythm Left anterior fascicular block Nonspecific ST abnormality Abnormal ECG When compared with ECG of 26-JUL-2020 14:12, Nonspecific ST abnormality is new Airway Mallampati Class: II TM Dist: >3cm Neck ROM: Full Partial: Lower Loose/Missing/Broken Teeth: Yes (Front upper all crowns) Heart: RRR Lungs: CTAB Assessment and Plan Assessment Anesthesia Assessment: Chart Reviewed Final Anesthetic Review Family History of Problems with Anesthesia: No History of Problems with Anesthesia: No Documented by User: Alber Atkins MD 01/11/22 17:32 PMFSH Past Medical History Medical History (Updated 01/06/22 @ 16:34 by Rosa Higgins PA-C) Anxiety Asthma Constipation by delayed colonic transit DDD (degenerative disc disease) Depression Dyslipidemia Essential hypertension Fall History of anemia History of broken leg Hypovitaminosis D Insomnia Iron deficiency anemia Lumbar stenosis Moderate asthma Osteoarthritis of right knee Osteoporosis Renal calculi Thoracic compression fracture Urinary incontinence Functional capacity: uses cane/walker Family History Family History Father No problems noted. Mother Breast cancer Sister Diabetes Heart attack Maternal Grandmother Brain cancer Surgical History Surgical History H/O: section History of bladder suspension procedure History of lithotripsy History of repair of rectocele History of tonsillectomy Hx of breast reduction, elective Hx of laparoscopic gastric banding Status post open reduction with internal fixation (ORIF) of fracture of ankle Social History Social History Household Members: None Household Members Other:: 1 Housing: Apartment Are you a primary healthcare consultant to a significant other at home: No Do you presently have visiting nurse or other home services: No Alcohol intake: never Patient Tobacco Use Status: Former Tobacco user Quit Date: 23 yrs ago Tobacco use type: Cigarette Cigarette Packs Per Day: 1 Second Hand Smoke Exposure: No Use of substances other than those prescribed or required for medical reasons: No Have you been hit, kicked, punched, or otherwise hurt by someone within the past year? If so, by whom?: No Do you feel safe in your current relationship?: Yes Is there a partner from a previous relationship who is making you feel unsafe now?: No Are you made to feel afraid or neglected: No Are you DNR?: No Advance Directives: No Advance Directives Information Provided: Yes (Son) Advance Directives on File: Yes Advance Directives Date on File: 06/03/16 Do you have thoughts of harming others: None Do you have a plan to hurt others: No Plan Recently lost weight without trying: No How much weight loss: 2-13 pounds Eating poorly because of decreased appetite: No Nutrition screen score: 1 Nutrition Risks: No Nutritional Risk Patient : No : No Poor oral hygiene: No service: No Current occupational status: unemployed Meds Allergies Allergy/AdvReac Type Severity Reaction Status Date / Time prednisone [PREDNISONE] Allergy Severe AGITATION Verified 01/04/22 09:44 Home Medications Medication Instructions Recorded Confirmed Last Taken Type albuterol sulfate 90 mcg/actuation 2 puff PO Q4-6H PRN Wheezing 06/08/20 01/04/22 01/11/22 History aerosol inhaler bupropion HCl 150 mg 24 hr tablet, 150 mg PO BEDTIME depressive 06/08/20 01/04/22 07/25/20 History extended release disorder cholecalciferol (vitamin D3) 50 50 mcg PO QAM 06/08/20 01/04/22 07/25/20 History mcg (2,000 unit) capsule docusate sodium 100 mg capsule 100 mg PO BEDTIME PRN constipation 06/08/20 01/04/22 07/25/20 History ferrous sulfate 325 mg (65 mg 325 mg PO BEDTIME 06/08/20 01/04/22 07/25/20 History iron) tablet hydrochlorothiazide 25 mg tablet 25 mg PO QAM blood pressure 06/08/20 01/04/22 07/24/20 History melatonin 5 mg tablet 10 mg PO BEDTIME PRN insomnia 06/08/20 01/11/22 07/25/20 History montelukast 10 mg tablet 10 mg PO DAILY 06/08/20 01/04/22 Unknown History rosuvastatin 10 mg tablet 10 mg PO BEDTIME 08/11/20 01/04/22 Unknown History calcium carbonate 200 mg calcium 200 mg PO BID 05/24/21 01/04/22 Unknown History (500 mg) chewable tablet (Calcium Antacid) loratadine 10 mg tablet 10 mg PO BEDTIME allergies 05/24/21 01/04/22 Unknown History trazodone 100 mg tablet 100 mg PO BEDTIME 05/24/21 01/04/22 Unknown History semaglutide 0.25 mg or 0.5 mg (2 0.25 mg subcut QWEEK 10/26/21 01/04/22 Unknown History mg/1.5 mL) subcutaneous pen injector (Ozempic) tramadol 50 mg tablet 50 mg PO BID PRN Pain 10/26/21 01/04/22 Unknown History amitriptyline 10 mg tablet 1 tab PO BEDTIME 01/05/22 01/05/22 Unknown History baclofen 10 mg tablet 1 tab PO TID PRN muscle spasm 01/05/22 01/05/22 Unknown History fluticasone propionate 50 2 spray intranasal DAILY PRN 01/05/22 01/05/22 Unknown History mcg/actuation nasal constipation spray,suspension acetaminophen 650 mg 1 tab PO Q8H PRN fever 01/11/22 01/11/22 Unknown History tablet,extended release Exam Airway Loose/Missing/Broken Teeth: Yes (Front upper all crowns, poor dentition overall ) Assessment and Plan Assessment Anesthesia Assessment: Anesthesia Plan Discussed Final Anesthetic Review NPO: Yes ASA Class: III Final Preanesthetic Review: Meds/Allgs Chart Reviewed, Consent Obtained/Reviewed and Anes Risks/Benef Reviewed Patient Risk: Intermediate Procedure Risk: Intermediate Anesthetic Plan Anesthetic Plan: Spinal and Regional Block Disposition: Standard PACU
[2022-01-05 15:33] LABS: MRSA Nasal PCR POSITIVE (Negative); SA Nasal PCR POSITIVE (Negative)
[2022-01-06 09:10] LABS: Appearance Urine Clear; Color Urine Yellow; Glucose Urine UA Negative (Negative); Leukocyte Esterase Urine Trace (Negative); Nitrite Urine Negative (Negative); PH 6.5 (5.0-9.0); UMIC TRIGGER UACC YES; Urine Blood Small (1+) (Negative); Urine Ketones Negative (Negative); Urine Protein Negative (Neg-Trace)
[2022-01-06 09:43] LABS: Bacteria Urine None Seen (None Seen); Calcium Oxalate Crystals Urine Present; Hyaline Casts Urine 0-2 /LPF (0-2); Squamous Epithelial Cell Urine 0-2 /HPF (0-2); WBC Urine 0-5 /HPF (0-5)
[2022-01-11] VITALS (13 sets, daily range): BP systolic 97–141; BP diastolic 48–81; PULSE 75–95; RESP 14–23; TEMP 36.1–37.1; O2SAT 95–100; BMI 38.2
--- NOTE | ~2022-01-11 | XR_ITS ---
EXAMINATION: XR KNEE, RIGHT CLINICAL INFORMATION: Status post right TKA COMPARISON: None TECHNIQUE: Four views of the right knee. FINDINGS: Total knee arthroplasty in intact with normal anatomic alignment. Surgical sutures noted. XR/XR knee RT 2V IMPRESSION: Appropriate alignment of the right total knee arthroplasty.
[2022-01-11 07:57] LABS: Hematocrit 39.2 % (37.0-47.0); Hemoglobin 12.8 g/dl (12.0-16.0)
[2022-01-11] MEDS: Lactated Ringers 1,000 ML 100 ML IVCONT ×3 (07:59→20:37)
[2022-01-11] MEDS: vancomycin HCL 1,500 MG in 0.9 % Sodium Chloride 500 ML 333.33 MG IV ×2 (08:00→20:46)
[2022-01-11 08:03] LABS: COVID-19 Test Negative (Negative); IDNOW Serial# 16C4AD1C
--- NOTE | 2022-01-11 10:29 | P.BOP_ITS ---
Brief Operative Note Date of Service: 01/11/22 Pre-op diagnosis: Right knee OA Post-op diagnosis: same Procedure: Right TKA Implants: [employer] Tri[employer] Pressfit cruciate retaining 04/15/11 Surgeon: Narendra Bowen MD Anesthesia: regional and spinal Was an Environmental Health Safety Engineer used for this Procedure?: Yes Environmental Health Safety Engineer: Rosa Higgins Estimated blood loss (mL): 150 Tourniquet time (min): 0 IV fluids (mL): 800 Pathology: other Condition: stable Disposition: PACU
--- NOTE | 2022-01-11 11:00 | P.OP_ITS ---
Operative Note Operative Note Date of Service: 01/11/22 Narrative: Date of Service: 01/11/22 Pre-op diagnosis: Right knee OA Post-op diagnosis: same Procedure: Right TKA Implants: [employer] Tri[employer] Pressfit cruciate retaining 04/15/11 Surgeon: Narendra Bowen MD Anesthesia: regional and spinal Was an Top Precipitator Operator used for this Procedure?: Yes Top Precipitator Operator: Rosa Higgins Estimated blood loss (mL): 150 Tourniquet time (min): 0 IV fluids (mL): 800 Pathology: other Condition: stable Disposition: PACU Procedure in detail: The patient was brought to the operating room and prepped and draped in standard sterile fashion. A time-out was called to identify proper site proper procedure proper surgeon and IV antibiotics were administered. 1 g of IV tranexamic acid was administered. I began by making a midline incision to the retinaculum and performed a medial parapatellar arthrotomy. The patella was translated laterally and the knee was flexed up. he medial compartment was eburnated . I performed a small medial peel and resected the infrapatellar fat pad. Thien's line was then used to drill my intramedullary femoral guide and my distal femur cut of 10 mm was made in 5 degrees of valgus while protecting the soft tissues. I then measured a # 2 femur and placed my cutting guide and made my anterior posterior and chamfer cuts protecting the soft tissues at all times. Once I was satisfied with my cuts I turned my attention to the tibia. I removed the meniscus medially and laterally and , using an external cutting guide, in line with the tibial crest and the third ray, I made my distal tibial cut in 3 deg slope of while protecting the PCL the posterior soft tissues at all times. An extension block was used to confirm appropriate amount of bony resection. I then sized a #3 tibia and once I was satisfied that there was complete tibial coverage I placed my trial and with the trial femur in place took the knee through range of motion. I was satisfied with the extension and flexion as well as the stability and balance at 0, 30 and 90 degrees. I then turned my attention to the patella where I removed 1 cm from the undersurface of the patella and then trialed [id number] patellar button. Again the knee was taken through range of motion I was satisfied with the tracking. I then returned to the femur and drilled my femoral lug holes and prepared the tibia. A femoral bone plug was placed and the knee was irrigated copiously. I then press fit the patella, tibia and femur in standard fashion. I trialed different inserts until I selected a #12insert. The final insert was placed and a 3 minutes iodine soak with local TXA was performed. A Werewolf cautery wand was used to maintain hemostasis over the capsule and meniscal beds, the gutters and peripatellar soft tissues. The knee was then closed with a running Quill suture, a 3 0 Vicryl and oxana on the skin. Patient was then placed in sterile dressing and brought to recovery room in stable condition there were no known complications.
[2022-01-11] MEDS: Acetaminophen 325 MG TABLET 650 MG PO (11:32)
[2022-01-11] MEDS: oxyCODONE HCl Immed Release 5 MG TABLET 10 MG PO ×2 (13:02→17:05)
[2022-01-11] MEDS: HYDROmorphone HCl 0.5 MG/0.5 ML SYRINGE 0.25 MG IVPUSH ×2 (14:00→18:17)
--- NOTE | 2022-01-11 15:35 | P.CONHOSP_ITS ---
History of Present Illness Data of Consult Service Date: 01/11/22 Requesting physician: Narendra Bowen Primary Care Provider: Vivian Massey DO HPI 71-year-old woman with history of hypertension, depression, hyperlipidemia and anemia admitted by Orthopedic surgery and is status post right total knee arthroplasty. Surgery was unremarkable. Patient is hemodynamically stable. no acute medical complaints at this time. Medical consultation was placed Review of Systems Review of Systems: Denies any recent fever chills or decrease in appetite respiratory denies any shortness of breath coverage production cardiovascular Denies chest pain gastrointestinal denies any dysphagia abdominal pain nausea vomiting or d iarrhea genitourinary denies any dysuria frequency or hematuria musculoskeletal right knee neuropsych denies any weakness or seizures all other systems reviewed are negative [facility] Medical History (Updated 01/06/22 @ 16:34 by Rosa Higgins PA-C) Anxiety Asthma Constipation by delayed colonic transit DDD (degenerative disc disease) Depression Dyslipidemia Essential hypertension Fall History of anemia History of broken leg Hypovitaminosis D Insomnia Iron deficiency anemia Lumbar stenosis Moderate asthma Osteoarthritis of right knee Osteoporosis Renal calculi Thoracic compression fracture Urinary incontinence Functional capacity: uses cane/walker Family History Father No problems noted. Mother Breast cancer Sister Diabetes Heart attack Maternal Grandmother Brain cancer Surgical History H/O: section History of bladder suspension procedure History of lithotripsy History of repair of rectocele History of tonsillectomy Hx of breast reduction, elective Hx of laparoscopic gastric banding Status post open reduction with internal fixation (ORIF) of fracture of ankle Social History Household Members: None Household Members Other:: 1 Housing: Apartment Are you a primary home care manager rn to a significant other at home: No Do you presently have visiting nurse or other home services: No Alcohol intake: never Patient Tobacco Use Status: Former Tobacco user Quit Date: 23 yrs ago Tobacco use type: Cigarette Cigarette Packs Per Day: 1 Second Hand Smoke Exposure: No Use of substances other than those prescribed or required for medical reasons: No Have you been hit, kicked, punched, or otherwise hurt by someone within the past year? If so, by whom?: No Do you feel safe in your current relationship?: Yes Is there a partner from a previous relationship who is making you feel unsafe now?: No Are you made to feel afraid or neglected: No Are you DNR?: No Advance Directives: No Advance Directives Information Provided: Yes (Son) Advance Directives on File: Yes Advance Directives Date on File: 06/03/16 Do you have thoughts of harming others: None Do you have a plan to hurt others: No Plan Recently lost weight without trying: No How much weight loss: 2-13 pounds Eating poorly because of decreased appetite: No Nutrition screen score: 1 Nutrition Risks: No Nutritional Risk Patient : No : No Poor oral hygiene: No service: No Current occupational status: unemployed Meds Allergies Allergy/AdvReac Type Severity Reaction Status Date / Time prednisone [PREDNISONE] Allergy Severe AGITATION Verified 01/04/22 09:44 Active Medications: Current Medications Acetaminophen (Acetaminophen 325 Mg Tablet) 650 mg PO Q6H PRN PRN Reason: Pain, Mild (Pain Scale 1-3) Last Admin: 01/11/22 11:32 Dose: 650 mg Albuterol Sulfate (Albuterol Sulfate 90 Mcg 8 Gm Inhaler) 2 puff INHALE Q4H PRN PRN Reason: Wheezing Amitriptyline HCl (Amitriptyline Hcl 10 Mg Tablet) 10 mg PO BEDTIME [facility] Baclofen (Baclofen 10 Mg Tablet) 10 mg PO TID PRN PRN Reason: muscle spasm Bupropion HCl (Bupropion Hcl Xl 150 Mg Tab.Er.24h) 150 mg PO BEDTIME [facility] Celecoxib (Celecoxib 200 Mg Capsule) 200 mg PO BID [facility] Docusate Sodium (Docusate Sodium 100 Mg Capsule) 100 mg PO BID [facility] Ferrous Sulfate (Ferrous Sulfate 324 Mg Tablet.Dr) 324 mg PO BEDTIME [facility] Fluticasone Propionate (Fluticasone Propionate Nasal 16 Gm [place]) 2 spray NOSTRIL-B DAILY PRN PRN Reason: constipation Fluticasone/Vilanterol (Fluticasone/Vilanterol 200/25 Blst.W.Dev) 1 puff INHALE RDAILY [facility] Hydromorphone HCl (Hydromorphone Hcl 0.5 Mg/0.5 Ml Syringe) 0.25 mg IVPUSH Q4H PRN; Protocol PRN Reason: Pain, Severe (Pain Scale 7-10) Last Admin: 01/11/22 14:00 Dose: 0.25 mg Lactated Ringer's (Lr) 1,000 mls @ 100 mls/hr IVCONT .Q10H [facility] Stop: 01/12/22 11:10 Last Admin: 01/11/22 11:31 Dose: 100 mls/hr Vancomycin HCl 1,500 mg/ (Sodium Chloride) 500 mls @ 333.333 mls/hr IV POSTOP ONE Stop: 01/11/22 21:29 Loratadine (Loratadine 10 Mg Tablet) 10 mg PO BEDTIME [facility] Melatonin (Melatonin 3 Mg Tablet) 9 mg PO BEDTIME PRN PRN Reason: insomnia Montelukast Sodium (Montelukast Sodium 10 Mg Tablet) 10 mg PO DAILY [facility] Ondansetron HCl (Ondansetron Hcl 4 Mg/2 Ml Vial) 4 mg IVPUSH Q8H PRN PRN Reason: Nausea and Vomiting Oxycodone HCl (Oxycodone Hcl Immed Release 5 Mg Tablet) 10 mg PO Q4H PRN PRN Reason: Pain, Moderate (Pain Scale 4-6 Last Admin: 01/11/22 13:02 Dose: 10 mg Oxycodone HCl (Oxycodone Hcl Er 10 Mg Tab.Er.12h) 10 mg PO BID [facility] Sodium Chloride (0.9 % Sodium Chloride Flush 3 Ml Syringe) 3 ml IVFLUSH QSHIFT [facility] Last Admin: 01/11/22 15:13 Dose: Not Given Trazodone HCl (Trazodone Hcl 100 Mg Tablet) 100 mg PO BEDTIME [facility] Home Medications Medication Instructions Recorded Confirmed Last Taken Type albuterol sulfate 90 mcg/actuation 2 puff PO Q4-6H PRN Wheezing 06/08/20 01/04/22 01/11/22 History aerosol inhaler bupropion HCl 150 mg 24 hr tablet, 150 mg PO BEDTIME depressive 06/08/20 01/04/22 07/25/20 History extended release disorder cholecalciferol (vitamin D3) 50 50 mcg PO QAM 06/08/20 01/04/22 07/25/20 History mcg (2,000 unit) capsule docusate sodium 100 mg capsule 100 mg PO BEDTIME PRN constipation 06/08/20 01/04/22 07/25/20 History ferrous sulfate 325 mg (65 mg 325 mg PO BEDTIME 06/08/20 01/04/22 07/25/20 History iron) tablet hydrochlorothiazide 25 mg tablet 25 mg PO QAM blood pressure 06/08/20 01/04/22 07/24/20 History melatonin 5 mg tablet 10 mg PO BEDTIME PRN insomnia 06/08/20 01/11/22 07/25/20 History montelukast 10 mg tablet 10 mg PO DAILY 06/08/20 01/04/22 Unknown History rosuvastatin 10 mg tablet 10 mg PO BEDTIME 08/11/20 01/04/22 Unknown History calcium carbonate 200 mg calcium 200 mg PO BID 05/24/21 01/04/22 Unknown History (500 mg) chewable tablet (Calcium Antacid) loratadine 10 mg tablet 10 mg PO BEDTIME allergies 05/24/21 01/04/22 Unknown History trazodone 100 mg tablet 100 mg PO BEDTIME 05/24/21 01/04/22 Unknown History semaglutide 0.25 mg or 0.5 mg (2 0.25 mg subcut QWEEK 10/26/21 01/04/22 Unknown History mg/1.5 mL) subcutaneous pen injector (Ozempic) tramadol 50 mg tablet 50 mg PO BID PRN Pain 10/26/21 01/04/22 Unknown History amitriptyline 10 mg tablet 1 tab PO BEDTIME 01/05/22 01/05/22 Unknown History baclofen 10 mg tablet 1 tab PO TID PRN muscle spasm 01/05/22 01/05/22 Unknown History fluticasone propionate 50 2 spray intranasal DAILY PRN 01/05/22 01/05/22 Unknown History mcg/actuation nasal constipation spray,suspension acetaminophen 650 mg 1 tab PO Q8H PRN fever 01/11/22 01/11/22 Unknown History tablet,extended release Physical Exam Vital Signs and Narrative: Vital Signs: Last Vital Signs Temp 97.6 F 01/11/22 15:29 Pulse 75 01/11/22 15:29 Resp 16 01/11/22 15:29 BP 120/57 L 01/11/22 15:29 Pulse Ox 97 01/11/22 15:29 O2 Del Method 01/11/22 15:29 O2 Flow Rate 1 01/11/22 11:33 BMI result Body Mass Index 38.2 Appearing in no acute distress head is normocephalic atraumatic eyes pupils are PERRLA sclera is anicteric mouth throat mucous membranes are intact and moist neck is supple no lymphadenopathy, no JVD noted lung sounds are clear to auscultation heart regular rate rhythm, clear S1, S2 positive bowel sounds, abdomen is soft, nontender neuro patient is alert x3, no focal deficits Right knee surgical dressing in place, surgical wound not visualized Results Labs CBC and Chem 7: 01/11/22 07:49 Labs: Laboratory Results - last 24 hr 01/11/22 07:36 COVID-19 ([facility]) Negative COVID-19 Clin Com See Note Imaging Radiologist's Impressions: Impressions Knee X-Ray 01/11/22 11:15 IMPRESSION: Appropriate alignment of the right total knee arthroplasty. Assessment and Plan (1) Iron deficiency anemia: Status: Acute Plan 71 year old woman admitted by Orthopedic surgery and is status post right total knee arthroplasty Right total knee arthroplasty Management as surgical team Pain management Hypertension Soft blood pressures May continue blood pressure medications once blood pressure is within normal limits Mental health Continue home medications Normocytic anemia Chronic No signs of bleeding Continue iron supplementation DVT prophylaxis as per admitting team Attending Dr. Jett Full code
--- NOTE | 2022-01-11 16:09 | MHC.CM.PN ---
IMM 01/11/22, EMR REVIEWED, PT ADMITTED S/P R TKA, CM MET W/PT WHO REPORTS SHE LIVES ALONE, HAS A CANE/WALKER FOR DME, ELEVATOR BUILDING AND HAS [facility] ULTRASOUND SPEC 6HRS A WK, PT VERIFIES MODERNA X2, PCP BONY ZARCO AND HCP ON FILE IS DTR [facility] HOWEVER PT MAY CHANGE IT TO HER SON QUENTIN HASKINS FROM [place] [phone], CM WILL FOLLOW-UP W/PT IN AM. PT PREFERS [facility] OR [facility] D/C 1-2 DAYS VIA BLS TRANSPORT
[2022-01-11] MEDS: Acetaminophen 1,000 MG/100 ML PIGGYBACK 16.7 MG IV ×2 (18:18→22:45)
[2022-01-11] MEDS: Loratadine 10 MG TABLET PO (20:39)
[2022-01-11] MEDS: Amitriptyline HCl 10 MG TABLET PO (20:39)
[2022-01-11] MEDS: Docusate Sodium 100 MG CAPSULE PO (20:39)
[2022-01-11] MEDS: traZODone HCL 100 MG TABLET PO (20:39)
[2022-01-11] MEDS: buPROPion HCl XL 150 MG TAB.ER.24H PO (20:40)
[2022-01-11] MEDS: Ferrous Sulfate 324 MG TABLET.DR PO (20:40)
[2022-01-11] MEDS: oxyCODONE HCl ER 10 MG TAB.ER.12H PO (23:43)
[2022-01-12] VITALS: BP 127/57; PULSE 75; RESP 18; TEMP 36.9; O2SAT 95
[2022-01-12] MEDS: HYDROmorphone HCl 0.5 MG/0.5 ML SYRINGE 0.25 MG IVPUSH ×3 (02:12→19:57)
[2022-01-12 03:48] VITALS: BP 136/59; PULSE 79; RESP 18; TEMP 36.8; O2SAT 97
[2022-01-12 06:04] LABS: MANUAL DIFF FLAG NO
[2022-01-12 06:25] LABS: Anion Gap 14 (12-20); Blood Urea Nitrogen 8 mg/dL (9-16); Calcium 8.5 mg/dL (8.4-10.2); Carbon Dioxide 28 mmol/L (22-29); Chloride 97 mmol/L (96-108); Creatinine Clr Calc Pharmacy 52.6; Estimated Glomerular Filt Rate > 60; Glucose Fasting 97 mg/dL (60-99); Sodium 135 mmol/L (135-145)
[2022-01-12 06:31] LABS: Basophils Percent Auto 0.4 % (0-2); Hematocrit 32.1 % (37.0-47.0); Hemoglobin 10.6 g/dl (12.0-16.0); Imm Gran Abs Auto 0.05 X10*3/uL (0.00-0.03); Imm Gran Pct Auto 0.9 % (0.0-0.4); Lymphocytes Percent Auto 17.9 % (20-40); Mean Corpuscular Hemoglobin 31.6 pg (27.0-33.0); Mean Corpuscular Volume 95.8 fL (80.0-98.0); Mean Platelet Volume 9.4 fL (9.4-12.3); Monocytes Absolute Auto 0.5 X10*3/uL (0.1-1.2); Monocytes Percent Auto 8.4 % (2-11); Neutrophils Absolute Auto 4.1 x10*3/uL (2.0-8.3); Neutrophils Percent Auto 72.4 % (45-73); Platelet Count 217 X10*3/uL (160-400); Red Blood Count 3.35 X10*6/uL (4.20-5.50); Red Cell Distribution Width 13.1 % (11.0-16.0); White Blood Count 5.7 X10*3/uL (4.8-10.8)
[2022-01-12] MEDS: Acetaminophen 1,000 MG/100 ML PIGGYBACK 16.7 MG IV ×3 (06:38→19:11)
[2022-01-12] MEDS: Lactated Ringers 1,000 ML 100 ML IVCONT (06:39)
--- NOTE | 2022-01-12 07:17 | PM.PNORT ---
Subjective Subjective Date of Service: 01/12/22 Interval history: POD1 RTKA patient resting in bed comfortably. No overnight events. Pain is managed. No additional complaints. Physical Exam Vital Signs: Vital Signs: Last Vital Signs Temp 98.2 F 01/12/22 03:48 Pulse 79 01/12/22 03:48 Resp 18 01/12/22 03:48 BP 136/59 L 01/12/22 03:48 Pulse Ox 97 01/12/22 03:48 O2 Del Method 01/12/22 03:48 O2 Flow Rate 1 01/11/22 11:33 BMI result Body Mass Index 38.2 Const: General: cooperative, healthy appearing and no acute distress Resp: Effort & Inspection: normal respiratory effort and able to speak in complete sentences Cardio: Rate: regular rate Peripheral pulses: Peripheral pulses 2+ throughout GI: Palpation (GI): Soft to palpation Skin: Lesions: no lesions Rashes: no rashes Extrem: Other: Right knee Aquacell is clean, dry, and intact. Able to dorsiflex and plantarflex. NVI. Procedures Date of Service Date of Service: 01/12/22 Progress Note: A&P Assessment and plan (1) Status post total right knee replacement: Status: Acute Plan Continue pain mgmnt Begin Lovenox for dvt ppx Continue PT for RTKA Dispo planning-PT, pain mgmnt Time Spent With Patient Time: Total time spent is greater than 50% in coordination of care (as documented) at patient's floor/unit and/or counseling patient: Quality Stroke Does the patient have a stroke diagnosis?: No VTE Prior VTE?: No VTE Risk Level:: Medical - moderate - high VTE Device Contraindication: N/A - Device Ordered VTE Drug Contraindication: N/A - Med Ordered
[2022-01-12 07:19] VITALS: BP 125/64; PULSE 86; RESP 17; TEMP 36.9; O2SAT 98
--- NOTE | 2022-01-12 09:14 | MHC.CM.PN ---
CM MET W/PT TO REVIEW PREFERENCES, PER PT THE [facility] IS PREFERRED SNF AND [facility] IS HER BACK UP, THE [facility] IS REVIEWING, CM WILL CONT TO FOLLOW D/C CHING.
--- NOTE | 2022-01-12 09:54 | P.PNIM_ITS ---
Subjective Subjective Date of Service: 01/12/22 Review of Systems Follow-up consultation, right knee arthroplasty Feeling better today, pain not as bad as yesterday Physical Exam Vital Signs: Vital Signs: Last Vital Signs Temp 98.5 F 01/12/22 07:19 Pulse 86 01/12/22 07:19 Resp 17 01/12/22 07:19 BP 125/64 01/12/22 07:19 Pulse Ox 98 01/12/22 07:19 O2 Del Method 01/12/22 07:19 O2 Flow Rate 1 01/11/22 11:33 BMI result Body Mass Index 38.2 Appearing in no acute distress lung sounds are clear to auscultation heart regular rate rhythm, clear S1, S2 positive bowel sounds, abdomen is soft, nontender neuro patient is alert x3, no focal deficits Right knee dressing intact, surgical incision not visualized Objective Data Active Medications Acetaminophen (Acetaminophen 325 Mg Tablet) 650 mg PO Q6H PRN PRN Reason: Pain, Mild (Pain Scale 1-3) Last Admin: 01/11/22 11:32 Dose: 650 mg Documented By: RICKEY Albuterol Sulfate (Albuterol Sulfate 90 Mcg 8 Gm Inhaler) 2 puff INHALE Q4H PRN PRN Reason: Wheezing Amitriptyline HCl (Amitriptyline Hcl 10 Mg Tablet) 10 mg PO BEDTIME [facility] Last Admin: 01/11/22 20:39 Dose: 10 mg Documented By: THOMAS Baclofen (Baclofen 10 Mg Tablet) 10 mg PO TID PRN PRN Reason: muscle spasm Bupropion HCl (Bupropion Hcl Xl 150 Mg Tab.Er.24h) 150 mg PO BEDTIME [facility] Last Admin: 01/11/22 20:40 Dose: 150 mg Documented By: THOMAS Celecoxib (Celecoxib 200 Mg Capsule) 200 mg PO BID [facility] Docusate Sodium (Docusate Sodium 100 Mg Capsule) 100 mg PO BID [facility] Last Admin: 01/11/22 20:39 Dose: 100 mg Documented By: THOMAS Enoxaparin Sodium (Enoxaparin Sodium 40 Mg/0.4 Ml Syringe) 40 mg SUBCUT Q24H [facility] Ferrous Sulfate (Ferrous Sulfate 324 Mg Tablet.Dr) 324 mg PO BEDTIME [facility] Last Admin: 01/11/22 20:40 Dose: 324 mg Documented By: THOMAS Fluticasone Propionate (Fluticasone Propionate Nasal 16 Gm [place]) 2 spray NOSTRIL-B DAILY PRN PRN Reason: constipation Fluticasone/Vilanterol (Fluticasone/Vilanterol 200/25 Blst.W.Dev) 1 puff INHALE RDAILY [facility] Last Admin: 01/12/22 08:12 Dose: Not Given Documented By: RADHA Non-Admin Reason: Med Not Available Hydromorphone HCl (Hydromorphone Hcl 0.5 Mg/0.5 Ml Syringe) 0.25 mg IVPUSH Q4H PRN; Protocol PRN Reason: Pain, Severe (Pain Scale 7-10) Last Admin: 01/12/22 07:33 Dose: 0.25 mg Documented By: KIMBERLY Lactated Ringer's (Lr) 1,000 mls @ 100 mls/hr IVCONT .Q10H [facility] Stop: 01/12/22 11:10 Last Admin: 01/12/22 06:39 Dose: 100 mls/hr Documented By: THOMAS Acetaminophen (Ofirmev) 1,000 mg in 100 mls @ 16.7 mls/hr IV Q6H [facility] Last Admin: 01/12/22 06:38 Dose: 16.7 mls/hr Documented By: THOMAS Loratadine (Loratadine 10 Mg Tablet) 10 mg PO BEDTIME [facility] Last Admin: 01/11/22 20:39 Dose: 10 mg Documented By: THOMAS Melatonin (Melatonin 3 Mg Tablet) 9 mg PO BEDTIME PRN PRN Reason: insomnia Montelukast Sodium (Montelukast Sodium 10 Mg Tablet) 10 mg PO DAILY [facility] Ondansetron HCl (Ondansetron Hcl 4 Mg/2 Ml Vial) 4 mg IVPUSH Q8H PRN PRN Reason: Nausea and Vomiting Oxycodone HCl (Oxycodone Hcl Immed Release 5 Mg Tablet) 10 mg PO Q4H PRN PRN Reason: Pain, Moderate (Pain Scale 4-6 Last Admin: 01/11/22 17:05 Dose: 10 mg Documented By: ANGEL Oxycodone HCl (Oxycodone Hcl Er 10 Mg Tab.Er.12h) 10 mg PO BID [facility] Last Admin: 01/11/22 23:43 Dose: 10 mg Documented By: THOMAS Sodium Chloride (0.9 % Sodium Chloride Flush 3 Ml Syringe) 3 ml IVFLUSH QSHIFT [facility] Last Admin: 01/12/22 07:32 Dose: Not Given Documented By: KIMEBRLY Non-Admin Reason: IV Running Trazodone HCl (Trazodone Hcl 100 Mg Tablet) 100 mg PO BEDTIME [facility] Last Admin: 01/11/22 20:39 Dose: 100 mg Documented By: THOMAS Labs CBC & Chem 7: 01/12/22 05:43 01/12/22 05:43 Labs: Laboratory Results - last 24 hr 01/12/22 01/12/22 05:43 05:43 MCV 95.8 MCH 31.6 MCHC 33.0 RDW 13.1 Plt Count 217 MPV 9.4 Immature Gran % (Auto) 0.9 H Neut % (Auto) 72.4 Lymph % (Auto) 17.9 L [place] % (Auto) 8.4 Eos % (Auto) 0.0 Baso % (Auto) 0.4 Lymph # (Auto) 1.0 L [place] # (Auto) 0.5 Eos # (Auto) 0.0 Baso # (Auto) 0.0 Abs Immat Gran (auto) 0.05 H Absolute Neuts (auto) 4.1 Absolute Nucleated RBC 0.000 Nucleated RBC % (auto) 0.0 Anion Gap 14 Estim Creat Clear Calc 52.6 Estimated GFR > 60 Fasting Glucose 97 Calcium 8.5 D Assessment and Plan (1) Status post total right knee replacement: Status: Acute Plan 71 year old woman admitted by Orthopedic surgery and is status post right total knee arthroplasty Right total knee arthroplasty Management as surgical team Pain management Hypertension Soft blood pressures May continue blood pressure medications once blood pressure is within normal limits Mental health Continue home medications Normocytic anemia Chronic No signs of bleeding Continue iron supplementation DVT prophylaxis as per admitting team Attending Dr. Garcia Full code Medical consultation completed. Will sign off Quality Stroke Does the patient have a stroke diagnosis?: No VTE Prior VTE?: No VTE Risk Level:: Medical - moderate - high VTE Device Contraindication: N/A - Device Ordered VTE Drug Contraindication: N/A - Med Ordered
[2022-01-12] MEDS: Docusate Sodium 100 MG CAPSULE PO ×2 (10:11→22:25)
[2022-01-12] MEDS: oxyCODONE HCl ER 10 MG TAB.ER.12H PO ×2 (10:11→22:26)
[2022-01-12] MEDS: Montelukast Sodium 10 MG TABLET PO (10:11)
[2022-01-12] MEDS: Enoxaparin Sodium 40 MG/0.4 ML SYRINGE SUBCUT (10:12)
[2022-01-12 11:23] VITALS: BP 133/63; PULSE 88; RESP 18; TEMP 37.2; O2SAT 94
[2022-01-12] MEDS: oxyCODONE HCl Immed Release 5 MG TABLET 10 MG PO (12:52)
--- NOTE | 2022-01-12 14:36 | HO.POSTANES ---
Post Anesthesia Evaluation Post Anesthesia Evaluation Vital Signs: Vital Signs Temp Pulse Resp BP Pulse Ox O2 Del Method 01/12/22 11:23 99.0 F 88 18 133/63 94 Room Air 01/12/22 07:19 98.5 F 86 17 125/64 98 Room Air 01/12/22 03:48 98.2 F 79 18 136/59 L 97 Room Air Anesthesia: Spinal and Nerve Block Mental Status: Awake Pain Control: Satisfactory Nausea/Vomiting: None Hydration: Adequate Anesthesia-Related Issues: No Anes. Related Issues
[2022-01-12 15:23] VITALS: BP 135/61; PULSE 90; RESP 18; TEMP 36.7; O2SAT 96
[2022-01-12 20:00] VITALS: BP 152/61; PULSE 98; RESP 18; TEMP 36.5; O2SAT 97
[2022-01-12] MEDS: Loratadine 10 MG TABLET PO (22:25)
[2022-01-12] MEDS: Amitriptyline HCl 10 MG TABLET PO (22:25)
[2022-01-12] MEDS: buPROPion HCl XL 150 MG TAB.ER.24H PO (22:25)
[2022-01-12] MEDS: Ferrous Sulfate 324 MG TABLET.DR PO (22:25)
[2022-01-12] MEDS: traZODone HCL 100 MG TABLET PO (22:26)
[2022-01-13] VITALS: BP 142/66; PULSE 99; RESP 18; TEMP 36.4; O2SAT 97
[2022-01-13] MEDS: Acetaminophen 1,000 MG/100 ML PIGGYBACK 16.7 MG IV ×2 (01:23→07:23)
[2022-01-13 04:00] VITALS: BP 142/65; PULSE 93; RESP 18; TEMP 36.6; O2SAT 97
[2022-01-13 05:38] LABS: MANUAL DIFF FLAG NO
[2022-01-13 05:43] LABS: Basophils Percent Auto 0.2 % (0-2); Hemoglobin 9.8 g/dl (12.0-16.0); Imm Gran Abs Auto 0.04 X10*3/uL (0.00-0.03); Imm Gran Pct Auto 0.5 % (0.0-0.4); Lymphocytes Absolute Auto 1.3 X10*3/uL (1.2-4.9); Lymphocytes Percent Auto 15.4 % (20-40); Mean Corpuscular HGB Conc 32.7 g/dl (31.0-35.0); Mean Corpuscular Hemoglobin 31.4 pg (27.0-33.0); Mean Corpuscular Volume 96.2 fL (80.0-98.0); Mean Platelet Volume 9.3 fL (9.4-12.3); Monocytes Absolute Auto 0.6 X10*3/uL (0.1-1.2); Monocytes Percent Auto 7.6 % (2-11); Neutrophils Absolute Auto 6.2 x10*3/uL (2.0-8.3); Neutrophils Percent Auto 76.3 % (45-73); Platelet Count 197 X10*3/uL (160-400); Red Blood Count 3.12 X10*6/uL (4.20-5.50); Red Cell Distribution Width 13.3 % (11.0-16.0); White Blood Count 8.1 X10*3/uL (4.8-10.8)
[2022-01-13 06:02] LABS: Anion Gap 14 (12-20); Blood Urea Nitrogen 10 mg/dL (9-16); Calcium 8.5 mg/dL (8.4-10.2); Carbon Dioxide 29 mmol/L (22-29); Chloride 98 mmol/L (96-108); Creatinine Clr Calc Pharmacy 49.9; Estimated Glomerular Filt Rate 57; Glucose Fasting 105 mg/dL (60-99); Potassium 4.3 mmol/L (3.3-5.1); Sodium 137 mmol/L (135-145)
[2022-01-13] MEDS: HYDROmorphone HCl 0.5 MG/0.5 ML SYRINGE 0.25 MG IVPUSH (06:49)
[2022-01-13 07:30] VITALS: BP 123/53; PULSE 92; RESP 18; TEMP 36.4; O2SAT 94
--- NOTE | 2022-01-13 08:06 | P.DS_ITS ---
DS: Providers Provider Date of Service: 01/13/22 Date of admission: 01/11/22 05:59 Primary care physician: Vivian Massey DO Consults: 01/11/22 12:36 Consult to Hospitalist Routine Consulting Provider: Hospitalist Reason For Exam: medical management DS: Diagnosis Discharge Diagnosis (1) Status post total right knee replacement: Status: Acute DS: Summary Hospital Course Hospital Course: The patient underwent a successful right total knee arthroplasty, she was transferred to PACU and then to the floor to recover. During their stay, their vitals were stable, afebrile at 97.6 . Labs were unremarkable, H/H 9.8/30.0 . POD 1 she was started on Lovenox for DVT ppx, they also received PT services twice a day. Prior to discharge, their dressing was change, incision clean dry and intact, new Aquacel dressing applied and the plan was to be discharged to [facility]. If there are any concerns with the bandage, please do not remove, call [facility] at [phone] Time Spent with Patient Time attestation: Total time spent providing and/or coordinating discharge services: Discharge coordination time: Less than 30 minutes Quality: Safe Use of Opioids Does Pt have an Active Cancer Diagnosis on the Problem List?: No Quality: Stroke Does the patient have a stroke diagnosis?: No Physical Exam Vital Signs: Vital Signs: Last Vital Signs Temp 97.6 F 01/13/22 07:30 Pulse 92 01/13/22 07:30 Resp 18 01/13/22 07:30 BP 123/53 L 01/13/22 07:30 Pulse Ox 94 01/13/22 07:30 O2 Del Method 01/13/22 07:30 O2 Flow Rate 1 01/11/22 11:33 BMI result Body Mass Index 38.2 Const: General: cooperative, healthy appearing and no acute distress Resp: Effort & Inspection: normal respiratory effort and able to speak in complete sentences Cardio: Rate: regular rate Peripheral pulses: Peripheral pulses 2+ throughout GI: Palpation (GI): Soft to palpation Skin: Lesions: no lesions Rashes: no rashes Extrem: Other: Right knee incision clean, dry, and intact. Wilfredo intact. Able to dorsiflex and plantarflex. Calf supple non tender. NVI. DS: Data Data Completed and Pending Completed studies during hospitalization [Text1]: Procedures Immobilization of Left Foot using Splint (07/26/20) Pending studies at discharge: Pending at discharge 01/11/22 10:16 Surgical [PTH] Routine Labs on day of discharge: Laboratory Results - last 24 hr 01/13/22 01/13/22 05:09 05:09 WBC 8.1 RBC 3.12 L Hgb 9.8 L Hct 30.0 L MCV 96.2 MCH 31.4 MCHC 32.7 RDW 13.3 Plt Count 197 MPV 9.3 L Immature Gran % (Auto) 0.5 H Neut % (Auto) 76.3 H Lymph % (Auto) 15.4 L [place] % (Auto) 7.6 Eos % (Auto) 0.0 Baso % (Auto) 0.2 Lymph # (Auto) 1.3 [place] # (Auto) 0.6 Eos # (Auto) 0.0 Baso # (Auto) 0.0 Abs Immat Gran (auto) 0.04 H Absolute Neuts (auto) 6.2 Absolute Nucleated RBC 0.000 Nucleated RBC % (auto) 0.0 Sodium 137 Potassium 4.3 Chloride 98 Carbon Dioxide 29 Anion Gap 14 BUN 10 Creatinine 0.96 Estim Creat Clear Calc 49.9 Estimated GFR 57 Fasting Glucose 105 H Calcium 8.5 Discharge Plan Discharge Anticipated Discharge Date/Time: 01/13/22 13:08 Patient Disposition: Xfer SNF Discharge Diagnosis: rt tka Referrals: [facility] [Other] - 1 Week (SHORT TERM REHAB) Vivian Massey DO [Primary Care Provider] - 1 Week Rosa Higgins PA-C [Physician Apartment Coordinator] - 2 Weeks (01/27/22 2:00 [facility] Rosa Higgins PA-C) Discharge Medications: New enoxaparin 40 mg/0.4 mL Syringe 40 mg subcut Q24H 42 Days Qty: 16.8 0RF oxycodone 5 mg Tablet 5 mg PO Q4H PRN (Reason: Pain, Moderate (Pain Scale 4-6) 7 Days Qty: 42 0RF Rx Instructions: Partial Fill upon patient request. Continued desmopressin 0.2 mg tablet 0.4 mg PO BEDTIME 90 Days Qty: 180 3RF amitriptyline 10 mg tablet 1 tab PO BEDTIME baclofen 10 mg tablet 1 tab PO TID PRN (Reason: muscle spasm) fluticasone propionate 50 mcg/actuation spray,suspension 2 spray intranasal DAILY PRN (Reason: constipation) acetaminophen 650 mg tablet extended release 1 tab PO Q8H PRN (Reason: fever) albuterol sulfate 90 mcg/actuation HFA aerosol inhaler 2 puff PO Q4-6H PRN (Reason: Wheezing) ferrous sulfate 325 mg (65 mg iron) tablet 325 mg PO BEDTIME hydrochlorothiazide 25 mg tablet 25 mg PO QAM montelukast 10 mg tablet 10 mg PO DAILY melatonin 5 mg tablet 10 mg PO BEDTIME PRN (Reason: insomnia) cholecalciferol (vitamin D3) 50 mcg (2,000 unit) capsule 50 mcg PO QAM bupropion HCl 150 mg tablet extended release 24 hr 150 mg PO BEDTIME docusate sodium 100 mg capsule 100 mg PO BEDTIME PRN (Reason: constipation) rosuvastatin 10 mg tablet 10 mg PO BEDTIME loratadine 10 mg tablet 10 mg PO BEDTIME trazodone 100 mg tablet 100 mg PO BEDTIME calcium carbonate [Calcium Antacid] 200 mg calcium (500 mg) tablet,chewable 200 mg PO BID [facility] Ellipta 200-25 mcg/dose blister with device 1 inh inhalation DAILY 30 Days Qty: 1 6RF Ozempic 0.25 mg or 0.5 mg(2 mg/1.5 mL) pen injector 0.25 mg subcut QWEEK Rx Instructions: for 4 doses tramadol 50 mg tablet 50 mg PO BID PRN (Reason: Pain) Discharge Orders: Discharge Order (Routine); Ordered 01/13/22 Ordered By: Eri Reid Diet: Regular diet Activity on Discharge: Use cane or walker Stand Alone Forms: Patient Portal Discharge page Care Plan Goals: Restore function of joint Health Concerns: none Plan of Treatment: Physical Therapy Pain management DVT prophylaxis Assessment: Physical Therapy for Total knee arthroplasty: WBAT, gait training, ROM 0-12, quad strength * Limit stair climbing * No showering, no tub bath-keep dressing clean, dry and intact * No driving x6 weeks * Continue Lovenox once a day x 6 weeks * Follow up with [facility] in 2 weeks: 01/27/2214:00 [facility]geons[facility]osa Higgins PA-C
--- NOTE | 2022-01-13 09:00 | MHC.CM.PN ---
PT MEDICALLY CLEARED FOR D/C TO STR AT THE [facility] W[facility] FOR ENZO RODRÍGUEZ
[2022-01-13] MEDS: oxyCODONE HCl ER 10 MG TAB.ER.12H PO (09:09)
[2022-01-13] MEDS: Docusate Sodium 100 MG CAPSULE PO (09:09)
[2022-01-13] MEDS: Celecoxib 200 MG CAPSULE PO (09:09)
[2022-01-13] MEDS: Enoxaparin Sodium 40 MG/0.4 ML SYRINGE SUBCUT (09:10)
[2022-01-13] MEDS: Montelukast Sodium 10 MG TABLET PO (09:10)
[2022-01-13 09:47] VITALS: BP 123/53; PULSE 92; O2SAT 94
[2022-01-13 09:55] LABS: COVID-19 Test Negative (Negative)
[2022-01-13 11:22] VITALS: BP 129/57; PULSE 88; RESP 17; TEMP 36.2; O2SAT 94
== END 2022-01-13 13:30 | disposition skilled nursing facility (03) | DRG 470 ==
LOC: HO.SSSA 06:02 → HO.S3 12:33
PROVIDERS: Nurse Practitioner; Physician Assistant; Admitting Provider Orthopaedic Surgery; PCP Family Medicine; Visit Provider Orthopaedic Surgery
PROC: 0SRC0JA Replacement of Right Knee Joint with Synthetic Substitute, Uncemented, Open Approach (ICD-10-PCS; CPT 27447; principal; 2022-01-11 09:40)
DX: M17.11 Unilateral primary osteoarthritis, right knee (principal); E78.5 Hyperlipidemia, unspecified; E66.9 Obesity, unspecified; I10 Essential (primary) hypertension; D64.9 Anemia, unspecified; Z68.38 Body mass index [BMI] 38.0-38.9, adult; Z20.822 Contact with and (suspected) exposure to COVID-19; Z87.891 Personal history of nicotine dependence; Z79.51 Long term (current) use of inhaled steroids; Z79.899 Other long term (current) drug therapy
CPT/HCPCS: 36415; 73560; 80048; 81001; 85014; 85018; 85025; 86850; 86900; 86901; 87635; 87640; 87641; 88305; 88311; 93005; 97110; 97116; 97162; 97530; C1776; J0131; J1170; J1650; J2250; J2370; J2795; J3370

== ENCOUNTER 2022-04-21 12:56 | Outpatient (REF) | payer MEDICARE, MEDICAID, SELFPAY ==
--- NOTE | ~2022-04-21 | XR_ITS ---
EXAMINATION: XR knee standing BI, XR knee RT 2V CLINICAL INFORMATION: Knee pain COMPARISON: Knee radiographs 03/23/2021 TECHNIQUE: 2 views of the right knee. One view of the bilateral knees standing. FINDINGS: No acute fracture or dislocation. Status post post right total knee arthroplasty in anatomic alignment. No evidence of hardware fracture or complication. Moderate degenerative changes of the left knee with loss of medial compartment joint space. No right joint effusion. Soft tissues are unremarkable. XR/XR knee RT 2V IMPRESSION: * No acute osseous abnormality. * Status post right total knee arthroplasty in anatomic alignment. No evidence of hardware fracture or complication. * Moderate degenerative changes of the left knee.
--- NOTE | ~2022-04-21 | XR_ITS ---
EXAMINATION: XR knee standing BI, XR knee RT 2V CLINICAL INFORMATION: Knee pain COMPARISON: Knee radiographs 03/23/2021 TECHNIQUE: 2 views of the right knee. One view of the bilateral knees standing. FINDINGS: No acute fracture or dislocation. Status post post right total knee arthroplasty in anatomic alignment. No evidence of hardware fracture or complication. Moderate degenerative changes of the left knee with loss of medial compartment joint space. No right joint effusion. Soft tissues are unremarkable. XR/XR knee standing BI IMPRESSION: * No acute osseous abnormality. * Status post right total knee arthroplasty in anatomic alignment. No evidence of hardware fracture or complication. * Moderate degenerative changes of the left knee.
== END 2022-04-21 12:57 | disposition home or self-care (01) ==
LOC: HO.HOSX 12:56
PROVIDERS: Visit Provider Orthopaedic Surgery
DX: Z96.651 Presence of right artificial knee joint (principal)
CPT/HCPCS: 73560; 73565

== ENCOUNTER 2022-07-20 15:00 | Outpatient (RCR) | payer MEDICARE, MEDICAID, SELFPAY ==
--- NOTE | 2022-03-08 15:35 | MHC.PT.EP ---
[facility] [address] Office [place] Office [place] Office [address] Kee Mary [address] [phone] F: [phone] F: [phone] F: [phone] F: [phone] Physical Therapy Plan of Care Date of Evaluation: Date of Surgery: Diagnosis: s/p R TKA Assessment: Patient is 71 y.o female who is referred to PT By Dr. Narendra Bowen MD with Dx of s/p R TKA. Patient impairments include pain, limited ROM, weakness, and swelling. Her PT is complicated by starting outpatient PT much later than advised post surgically. Patient current functional limitations are walking, bending, squatting, ADLs (dressing, bathing) She has CFO to assist 2x/week with cooking and cleaning). Patient will benefit from skilled PT to address aforementioned impairments and functional limitations to meet established goals. Frequency and Duration: The patient will be seen 2-3x/week for 8 weeks Short Term Goals: 4 weeks Patient demonstrates consistency and independence with HEP to self manage symptoms. Patient presents with increased R knee extension 0 degrees to normalize gait pattern with LRAD. Pilot Fuel Engineer Goals: 8 weeks Patient presents with increased R quad strength extension 4+/5 to be able to step up 4 step for community use of curb. Patient presents with inrcreased R knee flexion 105 degrees to be able to perform sit to stand from low chair. Treatment Plan: Modalities to reduce pain, spasms and effusion. Manual therapy to restore motion and function. Therapeutic exercise to improve strength and flexibility. Neuromuscular re-education for posture and balance. Therapeutic activities to return to functional activities of daily living. Electronically signed by: Jerrica Johnston, PT, DPT Please sign and return to therapist. Thank you for your referral.
--- NOTE | 2022-09-14 11:32 | MHC.PT.DC ---
[facility] [place] Office [place] Office [place] Office [address] Kee Mary [address] [phone] F: [phone] F: [phone] F: [phone] F: [phone] Physical Therapy Discharge Report Diagnosis: s/p R TKA Date of Surgery: Date of Evaluation: 03/10/22 Date of Discharge: 09/14/22 Treatments to Date: 24 Cancellations to Date: No Shows to Date: Discharge Status: Improved Function Independent with HEP Discharge Summary: Patient received extensive PT s/p TKR with good progress. During her course of PT she was able to transition from RW to straight cane and noted improvements in ROM, strength and reduction in pain, though still present. She cancelled numerous appointment for varying reasons and decide to discontinue PT on her own accord. She is discharged from PT at this time, MD can re-refer if needed. Electronically signed by: Jerrica Johnston, PT, DPT Please sign and return to therapist. Thank you for your referral.
== END 2022-09-14 11:34 | disposition home or self-care (01) ==
LOC: HO.PT 15:00
PROVIDERS: PCP Family Medicine; Visit Provider Orthopaedic Surgery
DX: Z96.651 Presence of right artificial knee joint (principal)
CPT/HCPCS: 97014; 97110; 97112; 97140; 97161; 97530

== ENCOUNTER 2022-09-27 13:01 | Outpatient (REF) | payer MEDICARE, MEDICAID, SELFPAY ==
--- NOTE | ~2022-09-27 | XR_ITS ---
EXAMINATION: XR SHOULDER, LEFT CLINICAL INFORMATION: Left shoulder pain for months, no injury COMPARISON: None available. TECHNIQUE: AP external rotation, Grashey, scapular Y, and axillary views of the left shoulder. FINDINGS: The bones are diffusely demineralized. No fracture. Glenohumeral and acromioclavicular alignment is anatomic with normal joint space. No abnormal soft tissue calcifications. XR/XR shoulder LT min 2V IMPRESSION: The bones are diffusely demineralized, no other bony abnormality.
== END 2022-09-27 13:02 | disposition home or self-care (01) ==
LOC: HO.HHCX 13:01
PROVIDERS: Visit Provider Family Medicine
DX: M25.512 Pain in left shoulder (principal)
CPT/HCPCS: 73030

== ENCOUNTER 2022-09-27 14:22 | Outpatient (REF) | payer MEDICARE, MEDICAID, SELFPAY ==
[2022-09-27 16:07] LABS: MANUAL DIFF FLAG NO
[2022-09-27 16:41] LABS: Basophils Percent Auto 0.4 % (0-2); Hematocrit 40.1 % (37.0-47.0); Hemoglobin 12.9 g/dl (12.0-16.0); Imm Gran Abs Auto 0.02 X10*3/uL (0.00-0.03); Imm Gran Pct Auto 0.4 % (0.0-0.4); Lymphocytes Absolute Auto 1.6 X10*3/uL (1.2-4.9); Lymphocytes Percent Auto 29.2 % (20-40); Mean Corpuscular HGB Conc 32.2 g/dl (31.0-35.0); Mean Corpuscular Hemoglobin 30.2 pg (27.0-33.0); Mean Corpuscular Volume 93.9 fL (80.0-98.0); Mean Platelet Volume 9.6 fL (9.4-12.3); Monocytes Absolute Auto 0.3 X10*3/uL (0.1-1.2); Monocytes Percent Auto 5.8 % (2-11); Neutrophils Absolute Auto 3.5 x10*3/uL (2.0-8.3); Neutrophils Percent Auto 64.2 % (45-73); Platelet Count 284 X10*3/uL (160-400); Red Blood Count 4.27 X10*6/uL (4.20-5.50); Red Cell Distribution Width 14.3 % (11.0-16.0); White Blood Count 5.5 X10*3/uL (4.8-10.8)
[2022-09-27 17:10] LABS: Folate 6.4 ng/mL (> or = 4.0); Vitamin B12 288 pg/mL (200-900)
[2022-09-27 18:11] LABS: Alanine Aminotransferase 11 U/L (0-31); Albumin Level 4.2 g/dL (3.5-5.0); Alkaline Phosphatase 85 U/L (39-117); Anion Gap 13 (12-20); Aspartate Amino Transferase 19 U/L (5-31); Bilirubin Direct 0.2 mg/dL (0.0-0.5); Bilirubin Total 0.3 mg/dL (0.0-1.0); Blood Urea Nitrogen 16 mg/dL (9-16); Calcium 9.7 mg/dL (8.4-10.2); Carbon Dioxide 32 mmol/L (22-29); Chloride 95 mmol/L (96-108); Cholesterol 145 mg/dL; Estimated Glomerular Filt Rate 55; Glucose Random 92 mg/dL (60-115); HDL Cholesterol 60 mg/dL; Iron 64 mcg/dL (30-160); LDL Cholesterol Calculated 69 mg/dl; Percent Iron Saturation 23 % (15-50); Potassium 3.8 mmol/L (3.3-5.1); Sodium 136 mmol/L (135-145); Total Iron Binding Capacity 276 mcg/dL (228-428); Total Protein 7.9 g/dL (6.5-8.0); Triglycerides 84 mg/dL; Unsaturated Iron Binding 212 ug/dL
[2022-09-27 18:27] LABS: Ferritin 79 ng/mL (10-250); Free T4 (Free Thyroxine) 1.14 ng/dL (0.71-1.85); Thyroid Stimulating Hormone 2.04 uIU/mL (0.32-4.0)
[2022-09-27 18:45] LABS: Microalbum/Creatinine Ratio Ur 14.7 ug/mg cr
[2022-09-28 05:26] LABS: Estimated Average Glucose 100 mg/dL; Hemoglobin A1c % 5.1 %
== END 2022-09-27 14:23 | disposition home or self-care (01) ==
LOC: HO.HHCL 14:22
PROVIDERS: Visit Provider Family Medicine
DX: I10 Essential (primary) hypertension (principal); D64.9 Anemia, unspecified; Z00.00 Encounter for general adult medical examination without abnormal findings
CPT/HCPCS: 36415; 80048; 80061; 80076; 82043; 82306; 82607; 82728; 82746; 83036; 83540; 84439; 84443; 85025

== ENCOUNTER → 2022-12-06 10:44 | Outpatient (REF) | payer MEDICARE, MEDICAID, SELFPAY | LOC: HO.SL 10:44 | PROVIDERS: PCP Family Medicine; Visit Provider Internal Medicine Pulmonary Disease | DX: Z13.89 Encounter for screening for other disorder (principal) ==

== ENCOUNTER 2023-02-16 11:31 | Outpatient (REF) | payer MEDICARE, MEDICAID, SELFPAY ==
--- NOTE | ~2023-02-16 | MM_ITS ---
EXAMINATION: MM SCREENING DIGITAL BREAST TOMOSYNTHESIS, BILATERAL CLINICAL INFORMATION: Screening. Asymptomatic. Remote history reduction mammoplasty, over 18 years ago. COMPARISON: Mammography: 06/04/2021, 12/20/2018, 07/28/2017, 06/22/2016 TECHNIQUE: Digital breast tomosynthesis is performed in both the craniocaudal and mediolateral oblique views along with computer-aided detection (CAD). Synthesized 2D images are generated from the tomosynthesis. FINDINGS: The breasts are almost entirely fatty (ACR BI-RADS breast composition Category a). There are no suspicious masses, suspicious grouped calcifications, or areas of architectural distortion in either breast. The parenchymal pattern is stable from prior exams. Skin calcifications seen anterior left and to a lesser degree right breasts. These are benign. MM/MM tomosynthesis screening BI IMPRESSION: No mammographic evidence of malignancy. ASSESSMENT: BI-RADS BI-RADS 2 - Benign Findings RECOMMENDATION: Routine annual mammography screening. 1 year F/U This examination should not preclude the clinical evaluation of a suspicious palpable abnormality. This patient's information was entered into a reminder system with a target due date for their next mammogram.
== END 2023-02-16 11:32 | disposition home or self-care (01) ==
LOC: HO.MAMMO 11:31
PROVIDERS: PCP Family Medicine; Visit Provider Family Medicine
DX: Z12.31 Encounter for screening mammogram for malignant neoplasm of breast (principal)
CPT/HCPCS: 77063; 77067

== ENCOUNTER → 2023-02-16 11:45 | Outpatient (BNV) | payer MEDICARE, MEDICAID, SELFPAY | PROVIDERS: PCP Family Medicine; Visit Provider Radiology Diagnostic Radiology | DX: Z12.31 Encounter for screening mammogram for malignant neoplasm of breast (principal) | CPT/HCPCS: 77063; 77067 ==

== ENCOUNTER 2023-06-22 10:18 | Outpatient (REF) | payer MEDICARE, MEDICAID, SELFPAY ==
--- NOTE | ~2023-06-22 | XR_ITS ---
EXAMINATION: XR KNEE, RIGHT CLINICAL INFORMATION: Pain in unspecified knee. COMPARISON: None available. April 21, 2022. TECHNIQUE: AP standing view of bilateral knees. [place] and lateral views of the right knee. FINDINGS: Right Knee: The bones are diffusely demineralized. Redemonstration of right knee total arthroplasty in anatomic alignment. Hardware appears intact. No significant joint effusion. Moderate narrowing of the medial compartment of the left knee. XR/XR knee RT 3V IMPRESSION: 1. Right knee total arthroplasty in anatomic alignment. Hardware appears intact. 2. Moderate narrowing of the medial compartment of the left knee.
== END 2023-06-22 10:19 | disposition home or self-care (01) ==
LOC: HO.HOSX 10:18
PROVIDERS: Visit Provider Orthopaedic Surgery
DX: M25.561 Pain in right knee (principal); R60.0 Localized edema; I89.0 Lymphedema, not elsewhere classified; Z96.651 Presence of right artificial knee joint
CPT/HCPCS: 73562; 99212

== ENCOUNTER 2023-06-22 11:19 | Outpatient (AMB) | payer MEDICARE, MEDICAID, SELFPAY ==
--- NOTE | 2023-06-22 11:26 | A.OFFVIS_ITS ---
Intake Intake Visit Reasons: OV - Right TKA 01/11/22 - Increased Pain Intake Note: Jennifer is a 72 year old female who presents today for a follow up of her right knee s/p right TKA 01/11/22. At he last visit she had restricted flexion and needs to be more aggressive with flexion exercises. Patient reports that she is doing well but she is still struggling with some swelling. She explains that she has pain in the lower leg when she touches it. Allergies prednisone [PREDNISONE] Allergy (Severe, Verified 01/11/23 13:29) AGITATION HPI OV - Right TKA 01/11/22 - Increased Pain HPI Details Jennifer is a 72 year old female who presents today for a follow up of her right knee s/p right TKA 01/11/22. At he last visit she had restricted flexion and needs to be more aggressive with flexion exercises. Patient reports that she is doing well but she is still struggling with some swelling. She explains that she has pain in the lower leg when she touches it. She actually has no complaints about her right knee it is more just in the medial aspect of the calf where she has some prominent adipose tissue bilaterally she has noticed continued difference in the size of her right lower leg compared to her left. [facility] Medical History Anxiety Asthma Constipation by delayed colonic transit DDD (degenerative disc disease) Depression Dyslipidemia Essential hypertension Fall History of anemia History of broken leg Hypovitaminosis D Insomnia Iron deficiency anemia Lumbar stenosis Moderate asthma Osteoarthritis of right knee Osteoporosis Renal calculi Thoracic compression fracture Urinary incontinence Surgical History H/O: section History of bladder suspension procedure History of lithotripsy History of repair of rectocele History of tonsillectomy Hx of breast reduction, elective Hx of laparoscopic gastric banding Status post open reduction with internal fixation (ORIF) of fracture of ankle Family History Father No problems noted. Mother Breast cancer Sister Diabetes Heart attack Maternal Grandmother Brain cancer Social History Household Members: None Household Members Other:: 1 Housing: Apartment Are you a primary director of medicare to a significant other at home: No Do you presently have visiting nurse or other home services: No Alcohol intake: never Patient Tobacco Use Status: Former Tobacco user Quit Date: 23 yrs ago Tobacco use type: Cigarette Cigarette Packs Per Day: 1 Second Hand Smoke Exposure: No Advance Directives Date on File: 06/03/16 service: No Current occupational status: unemployed Physical Exam Extrem Other: Walking comfortably with no gait antalgia There are prominent adipose tissue medial lower leg distal to the pes anserinus bursa and not involving the gastrocnemius Right knee incision clean dry and intact with no knee effusion. Results Reviewed Results Reviewed: I personally reviewed relevant radiographs. Right total knee arthroplasty in expected post operative position with no hardware complications or evidence of loosening Assessment & Plan Assessment & Plan (1) Status post total right knee replacement: Code(s): Z96.651 - Presence of right artificial knee joint Plan: There is some edema in her right leg has been present for over a year. There is no evidence of coagulopathy. This is does not relate directly to the knee but I did discuss it with her and I recommend that she consider weight loss and occupational therapy. Might be a good idea for her to see the limb fabric therapists and this might help. Discussed this with her and she agrees. (2) Leg edema, right: Code(s): R60.0 - Localized edema Plan: OT may help (3) Lymphatic edema: Code(s): I89.0 - Lymphedema, not elsewhere classified Plan: OT may help Orders: Orders XR knee standing BI Today M25.569 - Pain in unspecified knee OT Evaluation and Treatment Today I89.0 - Lymphedema, not elsewhere classified, R60.0 - Localized edema Coding Level of Care Code Est Pt Level 3 (31723) Diagnoses Status post total right knee replacement Z96.651 Leg edema, right R60.0 Lymphatic edema I89.0
== END 2023-06-22 11:56 | disposition home or self-care (01) ==
PROVIDERS: PCP Family Medicine; Visit Provider Orthopaedic Surgery
DX: R60.0 Localized edema (principal); I89.0 Lymphedema, not elsewhere classified; Z96.651 Presence of right artificial knee joint
CPT/HCPCS: 99213

== ENCOUNTER 2023-07-06 11:24 | Outpatient (REF) | payer MEDICARE, MEDICAID, SELFPAY ==
[2023-07-06 13:48] LABS: Estimated Average Glucose 105 mg/dL; Hemoglobin A1c % 5.3 % (<6.0)
[2023-07-06 13:52] LABS: Hematocrit 38.6 % (37.0-47.0); Hemoglobin 12.6 g/dl (12.0-16.0); Mean Corpuscular HGB Conc 32.6 g/dl (31.0-35.0); Mean Corpuscular Hemoglobin 30.8 pg (27.0-33.0); Mean Corpuscular Volume 94.4 fL (80.0-98.0); Mean Platelet Volume 9.5 fL (9.4-12.3); Platelet Count 274 X10*3/uL (160-400); Red Blood Count 4.09 X10*6/uL (4.20-5.50); Red Cell Distribution Width 14.2 % (11.0-16.0); White Blood Count 4.4 X10*3/uL (4.8-10.8)
[2023-07-06 14:04] LABS: Alanine Aminotransferase 11 U/L (0-31); Alkaline Phosphatase 81 U/L (39-117); Anion Gap 8 (12-20); Aspartate Amino Transferase 17 U/L (5-31); Bilirubin Direct 0.2 mg/dL (0.0-0.5); Bilirubin Total 0.3 mg/dL (0.0-1.0); Blood Urea Nitrogen 14 mg/dL (9-16); Calcium 9.6 mg/dL (8.4-10.2); Carbon Dioxide 35 mmol/L (22-29); Chloride 98 mmol/L (96-108); Cholesterol 132 mg/dL (<200); Estimated Glomerular Filt Rate 55; Glucose Random 93 mg/dL (60-115); HDL Cholesterol 59 mg/dL (>40); LDL Cholesterol Calculated 57 mg/dL (<100); Potassium 3.4 mmol/L (3.3-5.1); Sodium 138 mmol/L (135-145); Total Protein 7.7 g/dL (6.5-8.0); Triglycerides 83 mg/dL (<150)
[2023-07-06 14:22] LABS: Thyroid Stimulating Hormone 2.18 uIU/mL (0.32-4.0); Vitamin D 25-OH Total 59.1 ng/mL (>30)
== END 2023-07-06 11:25 | disposition home or self-care (01) ==
LOC: HO.HHCL 11:24
PROVIDERS: Visit Provider Family Medicine
DX: Z00.00 Encounter for general adult medical examination without abnormal findings (principal); N13.30 Unspecified hydronephrosis; D64.9 Anemia, unspecified; F33.9 Major depressive disorder, recurrent, unspecified; J45.30 Mild persistent asthma, uncomplicated; R91.1 Solitary pulmonary nodule; M54.50 Low back pain, unspecified; G89.29 Other chronic pain; M81.0 Age-related osteoporosis without current pathological fracture; E78.49 Other hyperlipidemia; I10 Essential (primary) hypertension
CPT/HCPCS: 36415; 80048; 80061; 80076; 82306; 83036; 84439; 84443; 85027

== ENCOUNTER 2024-01-05 12:52 | Outpatient (REF) | payer MEDICARE, SELFPAY | END 2024-01-05 12:53 | disposition home or self-care (01) | LOC: HO.US 12:52 | PROVIDERS: PCP Family Medicine; Visit Provider Family Medicine | DX: N13.30 Unspecified hydronephrosis (principal) | CPT/HCPCS: 76775 ==

== ENCOUNTER 2024-02-22 11:17 | Outpatient (REF) | payer MEDICARE, MEDICAID, SELFPAY | END 2024-02-22 11:18 | disposition home or self-care (01) | LOC: HO.MAMMO 11:17 | PROVIDERS: PCP Family Medicine; Visit Provider Family Medicine | DX: Z12.31 Encounter for screening mammogram for malignant neoplasm of breast (principal) | CPT/HCPCS: 77063; 77067 ==

== ENCOUNTER → 2024-02-22 11:30 | Outpatient (BNV) | payer MEDICARE, MEDICAID, SELFPAY | PROVIDERS: PCP Family Medicine; Visit Provider Internal Medicine | DX: Z12.31 Encounter for screening mammogram for malignant neoplasm of breast (principal) | CPT/HCPCS: 77063; 77067 ==

== ENCOUNTER 2024-04-23 13:51 | Outpatient (RCR) | payer MEDICARE, MEDICAID, SELFPAY ==
--- NOTE | 2024-04-12 14:28 | MHC.OT.OLE ---
[address] [phone] F: [phone] Occupational Therapy Lymphedema Evaluation Patient Name: Jennifer Whitehead Diagnosis: (B)LE lipedema Date of Onset: Attending Provider: Narendra Bowen Prescribed Treatment: Follow Up Appointment: History of Current Condition: Patient is a 74 y/o female who was referred to skilled OT swelling in the (B). She stated she has had swelling for approximately 15 years but now she is finding it difficulty to walk, don shoes and do grocery shopping. She described the pain as a burning pain in both LEs. She reports her PLOF as min (A) ADLs/ IADLs uses SC for functional ambulation, lives alone in an apartment with elevator access. Significant Medical History: Anxiety Asthma Constipation by delayed colonic transit DDD (degenerative disc disease) Depression Dyslipidemia Essential hypertension Fall History of anemia History of broken leg Hypovitaminosis D Insomnia Iron deficiency anemia Lumbar stenosis Moderate asthma Osteoarthritis of right knee Osteoporosis Renal calculi Thoracic compression fracture Urinary incontinence Precautions/Contraindications: R WBAT Patient Goals: Hand Dominance: Observations: Outcome Measures: Prior Level of Function and Occupation Living Situation: a lone Family and/or Social Report: Self-Snf Support: (I)ADLs/IADLs 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 Leisure Activities/Hobbies: No hobbies Current Level of Function and Occupation Self-Care and Home Care: mod (A) LB ADLs, mod (A) IADLs Employment Status: Retried Leisure Activites/Hobbies: Driving: Sleeping: Vision: Balance: Pain Assessment Pain Score: Pain Scale Used: Pain Location and Description: burning pain Aggravating Factors: Alleviating Factors: Skin and Soft Tissue Assessment Skin and Soft Tissue: Comments: Intact skin with pitting, no edema present in feet Nerve assessment Ulnar Nerve: Median Nerve: Radial Nerve: Comments: Sensory Assessment Temperature: Light Touch: Proprioception: Vibration: Comments: Lymph volume measurements Edema Assessment Upper Extremity: Lower Extremity: Comments: Dexterity Assessment Dexterity: Comments: Special Tests Comments: AROM (PROM) Strength Lower Extremity Hip Flexion: Knee Flexion: Knee Extension: Ankle Dorsiflexion: Ankle Plantarflexion: Ankle Eversion: Ankle Inversion: Comments: Cervical Flexion: Extension: Lateral Flexion: Rotation: Comments: Shoulder Flexion: Extension: Abduction: Internal Rotation: External Rotation: Comments: Flexion: Extension: Abduction: Internal Rotation: External Rotation: Comments: Elbow Flexion: Extension: Forearm Pronation: Forearm Supination: Comments: Flexion: Extension: Forearm Pronation: Forearm Supination: Comments: Wrist Flexion: Extension: Ulnar Deviation: Radial Deviation: Comments: Flexion: Extension: Ulnar Deviation: Radial Deviation: Comments: Thumb Thumb CMC Flexion: Thumb MCP Flexion: Thumb IP Flexion: Radial Abduction: Palmar Abduction: Opposition: Comments: Digits Index MCP: PIP: DIP: Long MCP: PIP: DIP: Ring MCP: PIP: DIP: Small MCP: PIP: DIP: Comments: Gross Grasp: Lateral Pinch: Two-Point Pinch: Three-Jaw Jeff: Comments: Patient Education Primary Language: Sudanese Inbound Call Center Representative Required: No Current Knowledge: Understands information with skills for self-management Teaching Method: Education Needs Identified on Evaluation: ADL's Disease Information Equipment Use How did patient/family demonstrate learning? Patient verbalizes Barriers to Learning: None Readiness for Learning: Accepting Who was educated? Patient Comments: Plan of Care Assessment: Based on initial evaluation patient presents with (B)LE lipedema stage II with intact skin and pitting. Patient reports burning pain in (B)LEs with impaired LE ROM, impaired strength and impaired performance during self care tasks. Her current lymph volume measurements are as follows: 544cm (R)LE, and 539cm (L)LE a 4.6cm difference. Due to the documented impairments it is recommended that patient receive skilled OT/ Lymphedema in order to provide patient with compression garments, maintain skin integrity and increase patient's (I) during ADL performance. Thank you for your referral. STG Duration: 2 weeks Short Term Goals: Patient will (I'ly) don/doff compression garments in order to maintain skin integrity Patient will be (I) with HEP Patient will be (I) with skin/ hygiene routine to decrease risk of infection Patient will be (I) with self manual lymph drainage techniques LTG Duration: Slip Seat Coverer Goals: same as stated above Frequency and Duration: The patient will be seen 3x a week for 4 weeks Treatment Plan: Treatment Plan Comments: Complete Decongestive Therapy Lymphedema Treatment Plan: Compression Bandaging Exercise: Stretching, strengthening, manual therapy Family/Caregiver Training Manual Lymphatic Drainage Other Referral for compression garment and instructions for donning/doffing Self Care Training: bandaging, skin care, self massage Skin Care Education Wound Care Needs Lymphedema Treatment Plan Comments: Complete Decongestive Therapy Electronically Signed By: Ayla Gonzales OTR/Miryam, CLT Reviewed/agree with student documentation: Therapist: Please sign and return to therapist, thank you for your referral.
--- NOTE | 2024-09-03 14:51 | MHC.OT.DC ---
[address] [phone] F: [phone] Occupational Therapy Discharge Note Patient Name: Jennifer Whitehead Provider: Narendra Bowen Diagnosis: (B)LE lipedema Date of Surgery: Date of Evaluation: 04/11/24 Date of Discharge: Treatments to Date: 2 Cancellations to Date: No Shows to Date: Discharge Status: Visit Non-compliance Discharge Summary: Patient was measured for compression garments. Vendor and therapist reached out to patient however she did not return phone calls nor did she return to skilled OT/ lymphedema therapy. Electronically Signed By: TELLO Cooley/L, CLT Reviewed/agree with student documentation: Therapist: Please Sign and return to therapist, thank you for your referral.
== END 2024-09-03 14:51 | disposition home or self-care (01) ==
LOC: HO.OT 13:51
PROVIDERS: PCP Family Medicine; Visit Provider Orthopaedic Surgery
DX: I89.0 Lymphedema, not elsewhere classified (principal); R60.0 Localized edema
CPT/HCPCS: 97140; 97165; 97535

== ENCOUNTER 2024-07-13 14:40 | Emergency (ER) | payer OTHER, SELFPAY ==
--- NOTE | ~2024-07-13 | XR_ITS ---
CLINICAL HISTORY: trauma 3 view right ankle Comparison: None Findings: Bones are osteopenic. Bimalleolar fracture with minimal displacement of fracture fragments. No radiopaque foreign body. Ankle mortise is congruent. IMPRESSION: 1. Bimalleolar fracture. 2. Osteopenia. This document has been electronically signed by: Mode Serrano MD, PHD on 07/13/2024 16:17:35
--- NOTE | ~2024-07-13 | CT_ITS ---
CLINICAL HISTORY: trauma CT chest with contrast Comparison: CT/SR - CT CHEST WO IV CON - 12/08/21 10:20 EDT Findings: The heart is normal size. Unremarkable thyroid gland. Small hiatal hernia. Mild dilatation of the esophagus suggesting possible achalasia. No consolidation, pleural effusion or pneumothorax. There is a cluster of nodular foci within the right upper lobe, measuring up to 6 mm in size. Findings at the level of the abdomen are reported separately. Moderate compression fracture at T11 without change. No acute fracture. No dislocation. IMPRESSION: 1. No significant injury at the level of the chest. 2. There is a cluster of nodules within the right upper lobe. This may be inflammatory. Recommend follow-up CT in 3-6 months. 3. Mildly dilated esophagus suggesting possible achalasia. This document has been electronically signed by: Nery Wilcox MD on 07/13/2024 18:20:58
--- NOTE | ~2024-07-13 | CT_ITS ---
CLINICAL HISTORY: trauma CT cervical spine without contrast Comparison: None Findings: Trace retrolisthesis of C5 on C6. Remaining alignment is normal. Multilevel degenerative disc disease. No central canal stenosis. No acute fractures or dislocations. No acute findings on limited view of the intracranial contents. No cervical fluid collections or masses. The lung apices were not evaluated. IMPRESSION: No cervical spine fracture. This document has been electronically signed by: Nery Wilcox MD on 07/13/2024 18:25:17
--- NOTE | ~2024-07-13 | XR_ITS ---
CLINICAL HISTORY: trauma 2 view right tibia-fibula Comparison: None Findings Bimalleolar fracture noted at the ankle. Right knee arthroplasty is present no hardware complication identified. Bones are osteopenic. No radiopaque foreign body. IMPRESSION: Medial and lateral malleolar fractures. Osteopenia This document has been electronically signed by: Mode Serrano MD, PHD on 07/13/2024 16:16:22
--- NOTE | ~2024-07-13 | CT_ITS ---
CLINICAL HISTORY: trauma CT head without contrast Comparison: None Findings: No intra-axial mass, midline shift, hydrocephalus, or acute hemorrhage. Involutional change of brain parenchyma, compatible with age. Moderate white matter disease. Small mucous retention cyst within the left sphenoid sinus. The orbits are unremarkable. There is no acute fracture. IMPRESSION: No skull fracture or intracranial hemorrhage. This document has been electronically signed by: Nery Wilcox MD on 07/13/2024 18:24:49
--- NOTE | ~2024-07-13 | CT_ITS ---
CLINICAL HISTORY: trauma CT abdomen and pelvis with contrast Comparison: None Findings: No consolidation or effusion. 12 mm calculus at the left ureteropelvic junction causing moderate hydronephrosis. Two additional nonobstructive calculi within the left kidney. Moderately severe atrophy of the left kidney. Unremarkable right kidney, liver, spleen, pancreas and adrenal glands. No calcified gallstones. There is a gastric band. There is a small hiatal hernia. There is colonic diverticulosis without diverticulitis. No bowel edema or dilatation. There is subcutaneous edema within the anterior abdominal wall. There is no measurable hematoma. Pelvic contents unremarkable. Normal appendix. There is levoscoliosis of the lumbar spine. No acute fracture. No dislocation. Moderate chronic compression fracture at T11. IMPRESSION: 1. No hemoperitoneum or abdominal organ injury. 2. 12 mm calculus at the left ureteropelvic junction causing moderate hydronephrosis. Two additional nonobstructing calculi within the left kidney. Moderately severe atrophy of the left kidney. This document has been electronically signed by: Nery Wilcox MD on 07/13/2024 18:26:20
--- NOTE | ~2024-07-13 | XR_ITS ---
EXAMINATION: XR CHEST 1 VIEW HISTORY: chest discomfort rule out PTX COMPARISON: Comparison is made with the prior examination dated 07/09/2021. FINDINGS: A single AP portable view of the chest performed at is submitted. The lungs are expanded and clear. There is no pleural effusion, pneumothorax, or pulmonary vascular congestion. The heart is normal in size. There is calcification of the thoracic aorta. There is degenerative disc disease of the spine. A gastrostomy tube is seen in the upper abdomen. XR/XR chest 1V IMPRESSION: No acute cardiopulmonary abnormality. Electronically signed by: Jacob Ellis MD 07/19/2024 11:47 AM EDT
[2024-07-13 14:53] VITALS: BP 162/58; BP 97/65; PULSE 84; RESP 20; TEMP 36.6; O2SAT 94; O2SAT 98; BMI 42.4
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
--- NOTE | 2024-07-13 15:51 | ECG_ITS ---
Test Reason : CHESTPAIN Blood Pressure : */* mmHG Vent. Rate : 80 BPM Atrial Rate : 80 BPM P-R Int : 176 ms QRS Dur : 84 ms QT Int : 392 ms P-R-T Axes : 61 -13 -6 degrees QTcB Int : 452 ms Normal sinus rhythm Normal ECG When compared with ECG of 05-Jan-2022 14:01, No significant change was found Referred By: Husam Victor Electronically Signed By: POPEYE BOYD
[2024-07-13 16:16] LABS: MANUAL DIFF FLAG NO
[2024-07-13 16:18] LABS: Basophils Percent Auto 0.3 % (0-2); Hemoglobin 12.4 g/dl (12.0-16.0); Imm Gran Abs Auto 0.07 X10*3/uL (0.00-0.03); Imm Gran Pct Auto 1.1 % (0.0-0.4); Lymphocytes Absolute Auto 1.1 X10*3/uL (1.2-4.9); Lymphocytes Percent Auto 15.9 % (20-40); Mean Corpuscular HGB Conc 33.5 g/dl (31.0-35.0); Mean Corpuscular Hemoglobin 31.6 pg (27.0-33.0); Mean Corpuscular Volume 94.1 fL (80.0-98.0); Mean Platelet Volume 8.7 fL (9.4-12.3); Monocytes Absolute Auto 0.4 X10*3/uL (0.1-1.2); Monocytes Percent Auto 6.5 % (2-11); Neutrophils Absolute Auto 5.1 x10*3/uL (2.0-8.3); Neutrophils Percent Auto 76.2 % (45-73); Platelet Count 213 X10*3/uL (160-400); Red Blood Count 3.93 X10*6/uL (4.20-5.50); Red Cell Distribution Width 13.5 % (11.0-16.0); White Blood Count 6.7 X10*3/uL (4.8-10.8)
[2024-07-13] MEDS: Morphine Sulfate 4 MG/ML CARTRIDGE IVPUSH ×2 (16:36→18:22)
[2024-07-13] MEDS: ondansetron HCL 4 MG/2 ML VIAL IVPUSH (16:36)
[2024-07-13 16:40] LABS: Alanine Aminotransferase 11 U/L (0-31); Albumin Level 3.9 g/dL (3.5-5.0); Alkaline Phosphatase 76 U/L (39-117); Anion Gap 13 (12-20); Aspartate Amino Transferase 21 U/L (5-31); Bilirubin Total 0.4 mg/dL (0.0-1.0); Blood Urea Nitrogen 17 mg/dL (9-16); Calcium 9.3 mg/dL (8.4-10.2); Carbon Dioxide 30 mmol/L (22-29); Chloride 96 mmol/L (96-108); Creatinine Clr Calc Pharmacy 50.3; Estimated Glomerular Filt Rate 57; Glucose Random 95 mg/dL (60-115); Potassium 3.4 mmol/L (3.3-5.1); Sodium 136 mmol/L (135-145); Total Protein 7.2 g/dL (6.5-8.0); Troponin-I High Sensitivity < 2.7 ng/L (<3.5-17.0)
[2024-07-13 18:26] VITALS: BP 106/42; PULSE 84; RESP 20; TEMP 36.6; O2SAT 92
[2024-07-13 19:20] VITALS: BP 130/66; PULSE 90; RESP 20; TEMP 36.5; O2SAT 97
[2024-07-13] MEDS: HYDROmorphone HCl 1 MG/ML SYRINGE IVPUSH (22:00)
[2024-07-13 23:21] VITALS: BP 152/63; PULSE 98; RESP 16; TEMP 37.1; O2SAT 98
[2024-07-14] VITALS (8 sets, daily range): BP systolic 112–141; BP diastolic 42–76; PULSE 73–87; RESP 16–24; TEMP 37–37.1; O2SAT 94–99
[2024-07-14] MEDS: HYDROmorphone HCl 2 MG TABLET 1 MG PO (07:12)
--- NOTE | 2024-07-14 09:18 | PHA.MEDREC ---
Pharmacy Consult ? Medication Reconciliation Pharmacy has completed the medication reconciliation. SPOKE WITH PATIENT IN ED. PATIENT IS MED BOX PATIENT AT [facility]
[2024-07-14] MEDS: oxyCODONE HCl Immed Release 5 MG TABLET PO ×2 (10:38→17:57)
[2024-07-14] MEDS: Acetaminophen 325 MG TABLET 975 MG PO (10:39)
--- NOTE | 2024-07-14 11:07 | PC.NURSE ---
Report received. Taken over care at this time.
[2024-07-14] MEDS: Fluticasone/Vilanterol 200/25 BLST.W.DEV 1 PUFF INHALE (12:08)
[2024-07-14] MEDS: Cholecalciferol (Vitamin D3) 25 MCG TABLET 50 MCG PO (12:10)
[2024-07-14] MEDS: buPROPion HCl XL 150 MG TAB.ER.24H PO (12:10)
[2024-07-14] MEDS: hydroCHLOROthiazide 25 MG TABLET PO (12:10)
[2024-07-14] MEDS: Ibuprofen 400 MG TABLET PO (15:07)
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
[2024-07-14] MEDS: Ferrous Sulfate 324 MG TABLET.DR PO (21:22)
[2024-07-14] MEDS: Montelukast Sodium 10 MG TABLET PO (21:22)
[2024-07-14] MEDS: Loratadine 10 MG TABLET PO (21:22)
[2024-07-14] MEDS: traZODone HCL 100 MG TABLET PO (21:22)
[2024-07-14] MEDS: Docusate Sodium 100 MG CAPSULE PO (21:22)
[2024-07-14] MEDS: Atorvastatin Calcium 40 MG TABLET PO (21:22)
[2024-07-14] MEDS: Melatonin 3 MG TABLET 9 MG PO (21:40)
--- NOTE | 2024-07-14 21:58 | PC.NURSE ---
Messaged pharmacy via [employer], was informed medications will be received once tech is able to make it down to ED. Informed pt. on this information.
[2024-07-14] MEDS: Amitriptyline HCl 10 MG TABLET PO (22:07)
[2024-07-14] MEDS: Desmopressin Acetate 0.2 MG TABLET 0.6 MG PO (22:07)
[2024-07-15] VITALS (10 sets, daily range): BP systolic 111–146; BP diastolic 42–100; PULSE 69–94; RESP 16–20; TEMP 36.6–36.8; O2SAT 83–100
[2024-07-15] MEDS: oxyCODONE HCl Immed Release 5 MG TABLET PO ×3 (00:25→16:09)
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
[2024-07-15] MEDS: Fluticasone/Vilanterol 200/25 BLST.W.DEV 1 PUFF INHALE ×2 (07:44→09:26)
[2024-07-15] MEDS: Cholecalciferol (Vitamin D3) 25 MCG TABLET 50 MCG PO (08:43)
[2024-07-15] MEDS: buPROPion HCl XL 150 MG TAB.ER.24H PO (09:25)
[2024-07-15] MEDS: hydroCHLOROthiazide 25 MG TABLET PO (09:25)
[2024-07-15] MEDS: Fluticasone Propionate Nasal 16 GM SPRAY 2 SPRAY NOSTRIL-B (09:26)
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
[2024-07-15] MEDS: Albuterol Sulfate 90 MCG 8 GM INHALER 2 PUFF INHALE (10:32)
[2024-07-15 10:40] LABS: Influenza A PCR NEGATIVE (Negative); Influenza B PCR NEGATIVE (Negative); Resp Syncy Virus RNA Qual PCR NEGATIVE (Negative); SARS COV2 PCR INHOUSE NEGATIVE (Negative)
[2024-07-15] MEDS: Acetaminophen 325 MG TABLET 975 MG PO ×2 (12:02→19:22)
--- NOTE | 2024-07-15 18:48 | MHC.EDTECH ---
This pct assumed care of Patient at 1500 ,vitals taken ,Patient was change ,care given ,was reposition and boosted up in bed ,Patient ate 50 % of meal and drank 360 ml fluids ,Patient family was here for a visit ,Call laureano within Pt reach .
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
--- NOTE | 2024-07-15 20:35 | MHC.EDTECH ---
2000 rounding done ,vitals taken ,Care given ,gown and bedding change ,Clean [place] in Place ,anselmo aren given ,bed alarm on bed ,Call laureano within Pt reach .
[2024-07-15] MEDS: Ferrous Sulfate 324 MG TABLET.DR PO (20:53)
[2024-07-15] MEDS: Calcium Carbonate 750 MG TAB.CHEW PO (20:53)
[2024-07-15] MEDS: traZODone HCL 100 MG TABLET PO (20:54)
[2024-07-15] MEDS: Montelukast Sodium 10 MG TABLET PO (20:54)
[2024-07-15] MEDS: Amitriptyline HCl 10 MG TABLET PO (20:54)
[2024-07-15] MEDS: Loratadine 10 MG TABLET PO (20:54)
[2024-07-15] MEDS: Atorvastatin Calcium 40 MG TABLET PO (20:54)
[2024-07-15] MEDS: Melatonin 3 MG TABLET 9 MG PO (20:54)
[2024-07-15] MEDS: Docusate Sodium 100 MG CAPSULE PO (20:54)
[2024-07-15] MEDS: Desmopressin Acetate 0.2 MG TABLET 0.6 MG PO (20:54)
[2024-07-16] MEDS: Ondansetron ODT 4 MG TAB.RAPDIS TRANSLINGU (00:23)
[2024-07-16] MEDS: oxyCODONE HCl Immed Release 5 MG TABLET PO ×2 (00:44→09:03)
[2024-07-16 02:11] VITALS: PULSE 88; RESP 17
[2024-07-16 06:07] VITALS: BP 146/55; PULSE 83; RESP 16; TEMP 36.8; O2SAT 95
--- NOTE | 2024-07-16 06:09 | MHC.EDTECH ---
0600 rounding done,Patient awake ,vitals taken ,Patient clean and dry ,Call laureano within Pt reach .
[2024-07-16] MEDS: Calcium Carbonate 750 MG TAB.CHEW PO ×2 (09:03→20:34)
[2024-07-16] MEDS: Cholecalciferol (Vitamin D3) 25 MCG TABLET 50 MCG PO (09:03)
[2024-07-16 09:05] VITALS: BP 141/59
[2024-07-16] MEDS: hydroCHLOROthiazide 25 MG TABLET PO (09:05)
[2024-07-16] MEDS: buPROPion HCl XL 150 MG TAB.ER.24H PO (09:05)
[2024-07-16] MEDS: Acetaminophen 325 MG TABLET 975 MG PO ×2 (10:39→20:33)
[2024-07-16 14:00] VITALS: BP 127/56; PULSE 87; RESP 18; TEMP 36.7; O2SAT 92
--- NOTE | 2024-07-16 16:19 | MHC.CM.ED ---
Patient remains in ER overflow. Medical tool adjuster information provided by daughter and given to [facility]. Continue to monitor for d/c needs.
[2024-07-16] MEDS: Ferrous Sulfate 324 MG TABLET.DR PO (20:33)
[2024-07-16] MEDS: Loratadine 10 MG TABLET PO (20:33)
[2024-07-16] MEDS: Docusate Sodium 100 MG CAPSULE PO (20:34)
[2024-07-16] MEDS: Atorvastatin Calcium 40 MG TABLET PO (20:34)
[2024-07-16] MEDS: traZODone HCL 100 MG TABLET PO (20:34)
[2024-07-16] MEDS: Melatonin 3 MG TABLET 9 MG PO (20:34)
[2024-07-16] MEDS: Montelukast Sodium 10 MG TABLET PO (20:34)
[2024-07-16] MEDS: Desmopressin Acetate 0.2 MG TABLET 0.6 MG PO (20:35)
[2024-07-16] MEDS: Amitriptyline HCl 10 MG TABLET PO (20:35)
[2024-07-16 21:46] VITALS: BP 139/51; PULSE 77; RESP 16; TEMP 36.7; O2SAT 92
[2024-07-17 05:53] VITALS: BP 119/62; PULSE 92; RESP 16; TEMP 36.6; O2SAT 98
[2024-07-17 07:36] VITALS: BP 137/56; PULSE 80; RESP 17; TEMP 36.6; O2SAT 98
[2024-07-17] MEDS: Calcium Carbonate 750 MG TAB.CHEW PO ×2 (08:13→22:00)
[2024-07-17] MEDS: buPROPion HCl XL 150 MG TAB.ER.24H PO (08:13)
[2024-07-17 08:14] VITALS: BP 137/56
[2024-07-17] MEDS: Cholecalciferol (Vitamin D3) 25 MCG TABLET 50 MCG PO (08:14)
[2024-07-17] MEDS: hydroCHLOROthiazide 25 MG TABLET PO (08:14)
--- NOTE | 2024-07-17 08:23 | PC.NURSE ---
Care of Pt assumed at change of shift. Pt provided with breakfast tray. VSS Pt takes AM meds without complication RT at bedside for inhaler. Case Management meets with Pt briefly re: plan of care. NAD noted at this time.
[2024-07-17] MEDS: Acetaminophen 325 MG TABLET 975 MG PO ×2 (10:30→19:44)
[2024-07-17 14:00] VITALS: BP 108/58; PULSE 66; RESP 19; TEMP 36.2; O2SAT 94
[2024-07-17] MEDS: Ferrous Sulfate 324 MG TABLET.DR PO (22:00)
[2024-07-17] MEDS: Docusate Sodium 100 MG CAPSULE PO (22:01)
[2024-07-17] MEDS: Loratadine 10 MG TABLET PO (22:01)
[2024-07-17] MEDS: Atorvastatin Calcium 40 MG TABLET PO (22:01)
[2024-07-17] MEDS: traZODone HCL 100 MG TABLET PO (22:01)
[2024-07-17] MEDS: Melatonin 3 MG TABLET 9 MG PO (22:21)
[2024-07-17 22:25] VITALS: BP 118/56; PULSE 70; RESP 18; TEMP 36.9; O2SAT 94
[2024-07-17] MEDS: Desmopressin Acetate 0.2 MG TABLET 0.6 MG PO (22:34)
--- NOTE | 2024-07-17 23:16 | MHC.EDTECH ---
this tech assumed care of the pt @0064
[2024-07-18] MEDS: oxyCODONE HCl Immed Release 5 MG TABLET PO (00:45)
--- NOTE | 2024-07-18 01:31 | PC.NURSE ---
Assumed care of patient at 1900 . Patient c/o pain, hs meds administered, repositioning . Patient resting at present time. Bed alarm on for safety , call laureano within reach.
[2024-07-18] MEDS: Acetaminophen 325 MG TABLET 975 MG PO ×3 (03:23→20:04)
[2024-07-18 06:00] VITALS: BP 140/60; PULSE 83; RESP 17; TEMP 36.7; O2SAT 96
[2024-07-18 08:24] VITALS: BP 149/59; PULSE 78; RESP 16; TEMP 36.6; O2SAT 98
[2024-07-18 08:26] VITALS: BP 149/59
[2024-07-18] MEDS: Cholecalciferol (Vitamin D3) 25 MCG TABLET 50 MCG PO (08:26)
[2024-07-18] MEDS: buPROPion HCl XL 150 MG TAB.ER.24H PO (08:26)
[2024-07-18] MEDS: hydroCHLOROthiazide 25 MG TABLET PO (08:26)
[2024-07-18] MEDS: Calcium Carbonate 750 MG TAB.CHEW PO (08:26)
--- NOTE | 2024-07-18 09:01 | MHC.CM.ED ---
Patient remains in ER overflow. Insurance is requesting updated PT note. Oneida from PT aware and will re-see patient. Continue to monitor for d/c needs.
[2024-07-18 14:00] VITALS: BP 145/68; PULSE 86; RESP 16; TEMP 36.5; O2SAT 100
--- NOTE | 2024-07-18 15:52 | MHC.CM.ED ---
Patient remains in ER overflow. Received telephone call from Kimani of [facility]. Peer to Peer provider telephone call requested by tomorrow 07/18 at 11am. Jacqueline KELLY asked to call [phone], opt 5. Provider requesting updated PT note stating patient can participate in out of bed therapy once she is able to safely get out of bed. [facility] Physical Therapist made aware. Marcy from [facility] made aware. Per Jacqueline, new peer to peer will not need to be completed. Updated physical therapy note will just need to be sent to them. Continue to monitor for d/c needs.
[2024-07-18 19:42] VITALS: BP 150/53; PULSE 78; RESP 18; TEMP 36.7; O2SAT 99
[2024-07-18] MEDS: Atorvastatin Calcium 40 MG TABLET PO (20:05)
[2024-07-18] MEDS: Melatonin 3 MG TABLET 9 MG PO (20:05)
[2024-07-18] MEDS: Montelukast Sodium 10 MG TABLET PO (20:05)
[2024-07-18] MEDS: Docusate Sodium 100 MG CAPSULE PO (20:05)
[2024-07-18] MEDS: Ferrous Sulfate 324 MG TABLET.DR PO (20:05)
[2024-07-18] MEDS: traZODone HCL 100 MG TABLET PO (20:06)
[2024-07-18] MEDS: Desmopressin Acetate 0.2 MG TABLET 0.6 MG PO (20:57)
[2024-07-18] MEDS: Amitriptyline HCl 10 MG TABLET PO (20:57)
[2024-07-19] MEDS: Acetaminophen 325 MG TABLET 975 MG PO ×2 (04:41→12:09)
[2024-07-19 05:26] VITALS: BP 146/53; PULSE 80; RESP 18; TEMP 36.6; O2SAT 97
[2024-07-19 06:24] VITALS: BP 147/75; PULSE 72; RESP 18; TEMP 36.3; O2SAT 96
--- NOTE | 2024-07-19 06:24 | MHC.EDTECH ---
pt slept all night, was given incontinence care, repositioned and clean linens at morning vitals
--- NOTE | 2024-07-19 06:27 | PC.NURSE ---
Upper Stitcher assumed care of this patient at 04:00. Patient is A&Ox4. Breathing is even and unlabored without distress. Patient was medicated with scheduled tylenol for RLE pain. No further complaints of pain. +Distal pulses. +cms. Tolerating po without n/v. Purewick changed and remains intact and functioning. VSS. Assisted with repositioning. No acute complaints offered by pt. Bed alarm on and safety meaures in place.
[2024-07-19] MEDS: Fluticasone/Vilanterol 200/25 BLST.W.DEV 1 PUFF INHALE (08:48)
[2024-07-19 08:50] VITALS: BP 147/75
[2024-07-19] MEDS: Clotrimazole 1 % Cream 15 GM TUBE 1 APPL TOPICAL (08:50)
[2024-07-19] MEDS: hydroCHLOROthiazide 25 MG TABLET PO (08:50)
[2024-07-19] MEDS: buPROPion HCl XL 150 MG TAB.ER.24H PO (08:50)
[2024-07-19] MEDS: Cholecalciferol (Vitamin D3) 25 MCG TABLET 50 MCG PO (08:50)
[2024-07-19] MEDS: Calcium Carbonate 750 MG TAB.CHEW PO (08:50)
--- NOTE | 2024-07-19 09:14 | ECG_ITS ---
Test Reason : CHEST PAIN Blood Pressure : */* mmHG Vent. Rate : 71 BPM Atrial Rate : 71 BPM P-R Int : 166 ms QRS Dur : 88 ms QT Int : 402 ms P-R-T Axes : 62 -13 -3 degrees QTcB Int : 436 ms Normal sinus rhythm Normal ECG When compared with ECG of 13-Jul-2024 15:59, No significant change was found Referred By: Jacqueline Flores Electronically Signed By: POPEYE BOYD
[2024-07-19 09:18] VITALS: BP 147/75; O2SAT 97
--- NOTE | 2024-07-19 09:21 | PC.NURSE ---
Patient was having PT assessment when Physical therapist came out and stated patient was having chest pain. Teresa KELLY notified. Ekg ordered. Spoke to patient states it like a pressure 8/10. Patient is getting EKG now.
[2024-07-19] MEDS: oxyCODONE HCl Immed Release 5 MG TABLET PO (09:59)
--- NOTE | 2024-07-19 12:19 | MHC.CM.PN ---
Addendum entered by Aileen Connors 07/19/24 16:06: CM SPOKE TO PTS SON/HCP, QUENTIN [phone], HE IS AWARE OF DC PLAN/TIME Original Note: UPDATED PT NOTE SENT TO [facility] THIS MORNING, THEY NOW HAVE INSURANCE AUTH BLS TRANSPORT BOOKED WITH [facility] PT WILL DC TO [facility] FOR STR TODAY AT 1730 HOURS
[2024-07-19 14:11] VITALS: BP 123/103; PULSE 74; RESP 16; O2SAT 99
--- NOTE | 2024-07-19 15:16 | PC.NURSE ---
On bed gutierrez now trying to have a bowel movement. Patient scheduled to go to [facility] at 1730.
--- NOTE | 2024-07-19 16:36 | PC.NURSE ---
Report given to receiving facility @ 1435.
== END 2024-07-19 18:40 | disposition other institution (70) ==
PROVIDERS: Emergency Medicine; Physician Assistant; Emergency Provider Emergency Medicine; PCP Family Medicine
DX: S82.841A Displaced bimalleolar fracture of right lower leg, initial encounter for closed fracture (principal); S29.9XXA Unspecified injury of thorax, initial encounter; V43.52XA Car driver injured in collision with other type car in traffic accident, initial encounter; I10 Essential (primary) hypertension; E78.5 Hyperlipidemia, unspecified; J45.909 Unspecified asthma, uncomplicated; E66.9 Obesity, unspecified; Z68.41 Body mass index [BMI] 40.0-44.9, adult; Z91.81 History of falling; Z96.651 Presence of right artificial knee joint; Y93.89 Activity, other specified; Y92.414 Local residential or business street as the place of occurrence of the external cause; Y99.9 Unspecified external cause status; Z03.818 Encounter for observation for suspected exposure to other biological agents ruled out
CPT/HCPCS: 0241U; 29515; 36415; 70450; 71045; 71260; 72125; 73590; 73610; 74177; 80053; 84484; 85025; 93005; 94640; 96374; 96375; 96376; 97162; 97530; 99285; J1171; J2270; J2405

== ENCOUNTER → 2024-07-13 15:38 | Outpatient (BNV) | payer MEDICARE, MEDICAID, SELFPAY | PROVIDERS: Emergency Provider Emergency Medicine; PCP Family Medicine; Visit Provider General Practice | DX: N13.2 Hydronephrosis with renal and ureteral calculous obstruction (principal); S19.9XXA Unspecified injury of neck, initial encounter; S09.90XA Unspecified injury of head, initial encounter; S29.9XXA Unspecified injury of thorax, initial encounter; S82.841A Displaced bimalleolar fracture of right lower leg, initial encounter for closed fracture; M85.871 Other specified disorders of bone density and structure, right ankle and foot | CPT/HCPCS: 70450; 71260; 72125; 73590; 73610; 74177 ==

== ENCOUNTER → 2024-07-13 15:51 | Outpatient (BNV) | payer MEDICARE, MEDICAID, SELFPAY | PROVIDERS: Emergency Provider Emergency Medicine; PCP Family Medicine; Visit Provider Internal Medicine | DX: R07.9 Chest pain, unspecified (principal) | CPT/HCPCS: 93010 ==

== ENCOUNTER → 2024-07-19 09:14 | Outpatient (BNV) | payer MEDICARE, MEDICAID, SELFPAY | PROVIDERS: Emergency Provider Emergency Medicine; PCP Family Medicine; Visit Provider Internal Medicine | DX: R07.9 Chest pain, unspecified (principal) | CPT/HCPCS: 93010 ==

== ENCOUNTER → 2024-07-19 10:11 | Outpatient (BNV) | payer MEDICARE, MEDICAID, SELFPAY | PROVIDERS: Emergency Provider Emergency Medicine; PCP Family Medicine; Visit Provider Radiology Diagnostic Radiology | DX: R07.9 Chest pain, unspecified (principal) | CPT/HCPCS: 71045 ==

== ENCOUNTER 2024-08-02 08:19 | Outpatient (REF) | payer MEDICARE, MEDICAID, SELFPAY ==
--- NOTE | ~2024-08-02 | XR_ITS ---
CLINICAL HISTORY: M25.579 - Pain in unspecified ankle and joints of unspecified foot --- Additional N otes or Special Instructions: splint off 3 view right ankle Comparison: None Findings: There are fractures of the medial malleolus and distal fibula with overlying soft tissue swelling. No dislocations. No significant loss of joint space, osteophytes, or erosions. No ankle effusion. No radiopaque foreign body. IMPRESSION: 1. Medial malleolar and distal fibular fractures. This document has been electronically signed by: Zi Stanford MD on 08/03/2024 08:46:14
--- OUTSIDE RECORDS SUMMARY | 2024-08-06 08:25 | XMS_ITS | Clinical Summary ---
Author Organization 175 [facility] Address [address] [place] [address] Phone Care Team Providers Care Broom Bundler Name Role Phone Vivian Massey Primary Care Provider +1- [phone] Medications Mounjaro 2.5 mg/0.5 mL injectionIndica tions:Class 3 severe obesity due to excess calories with serious comorbidity and body mass index (BMI) of 40.0 to 44.9 in adult (CMS/HCC V24, CMS/HCC V28) INJECT ONE PEN (=2.5MG) SUBCUTANEOUSLY ONCE A WEEK DIRECTED 2 mL 07/02/19 Active Encounters Date Type Department Care Team Description 08/03/2024 Lab Requisition [facility] Lab [address] [place] [phone] Araceli Maya MD Essential (primary) hypertension; Anemia, unspecified; Unspecified osteoarthritis, unspecified site 07/29/2024 Lab Requisition [facility] Lab [address] [place] [phone] Araceli Maya MD Essential (primary) hypertension; Anemia, unspecified; Unspecified osteoarthritis, unspecified site 07/22/2024 Lab Requisition [facility] Lab [address] [place] [phone] Araceli Maya MD Essential (primary) hypertension; Anemia, unspecified; Unspecified osteoarthritis, unspecified site 07/20/2024 Lab Requisition [facility] Lab [address] [place] [address] Araceli Maya MD Anemia, unspecified; Essential (primary) hypertension; Vitamin D deficiency, unspecified 06/05/2024 Telephone Bariatric Surgery - [place] [address] [phone] Negra Peterson PA 05/28/2024 Telephone Bariatric Surgery - [place] [address] [phone] Negra Peterson PA Advice Only (Ozempic is not working) from Last 3 Months Immunizations Name Administration Dates Next Due Moderna SARS-CoV-2 COVID-19, mRNA, LNP-S, preservative free 07/13/2020,06/15/2020 Surgical History Surgery Date Site/Laterality Comments BREAST REDUCTION 1997 PROCEDURE: [place] BREAST REDUCTION SECTION 1982 PROCEDURE: HISTORICAL BLADDER SUSPENSION PROCEDURE: HISTORICAL BLADDER SUSPENSION; COMMENT: Marcus Corin operation GASTRIC BYPASS 2005 PROCEDURE: [place] GASTRIC RSTCV W/BYP W/SM INT RCNSTJ LIMIT ABSRPJ; COMMENT: Lap band CHOLECYSTECTOMY PROCEDURE: HISTORICAL CHOLECYSTECTOMY OTHER SURGICAL HISTORY 1999 PROCEDURE: HISTORY OTHER; COMMENT: hernia repair of unknown site EYE SURGERY 2005 PROCEDURE: HISTORICAL EYE SURGERY; COMMENT: retinal detachment, Dr aJvier Medical History Medical History Date Comments Asthma [...] PM EDT Office Visit Bariatric Surgery - [place] [address] [phone] Negra Peterson PA 175 [facility] [address] [place] [phone] Health Maintenance Due Date Last Done Comments [...] 75+ series) 2023 COVID-19 Vaccine (3 - 2023- season) 2023 07/13/2020, 06/15/2020 Depression Screening 12/10/2024 [...] K/mcL LAB HEMETOLOGY METHOD 07/30/2024 10:[address] [facility] LAB RBC 3.40(L) 3.80 - 4.80 M/mcL LAB HEMETOLOGY METHOD 07/30/2024 10:[address] [facility] LAB Hemoglobin 10.5(L) 11.5 - 16.0 g/dL LAB HEMETOLOGY METHOD 07/30/2024 10:[address] [facility] LAB Hematocrit 32.1(L) 35.0 - 47.0 % LAB HEMETOLOGY METHOD 07/30/2024 10:[address] [facility] LAB MCV 95.3 79.0 - 98.0 FL LAB HEMETOLOGY METHOD 07/30/2024 10:[address] [facility] LAB MCH 31.2 27.0 - 32.0 pcg LAB HEMETOLOGY METHOD 07/30/2024 10:[address] [facility] LAB MCHC 32.7 32.0 - 37.0 g/dL LAB HEMETOLOGY METHOD 07/30/2024 10:[address] [facility] LAB RDW 13.5 11.0 - 15.0 % LAB HEMETOLOGY METHOD 07/30/2024 10:49 AM EDT [facility] Platelets 366 130 - 400 K/mcL [facility] 07/30/2024 10:49 AM EDT [facility] MPV 8.9 7.0 - 11.0 FL LAB [facility] 07/30/2024 10:49 AM EDT [facility] NRBC 0.0 <1.0 % LAB [facility] 07/30/2024 10:49 AM EDT [facility] LAB NRBC Absolute 0.00 <0.10 K/mcL LAB [facility] METHOD 07/30/2024 10:[address] [facility] Blood Venous blood specimen / Unknown Venipuncture / Unknown 07/30/2024 6:05 AM EDT 07/30/2024 10:35 AM EDT us Araceli Maya MD LAB BLOOD ORDERABLES Fin al Result [facility] [address] [place] [address], * (ABNORMAL) Basic metabolic panel (07/30/2024 6:05 AM EDT) Only the most recent of3 resultswithin the time period is included. Sodium 133 133 - 145 mmol/L LAB CHEMISTRY METHOD 07/30/2024 12:[address] [facility] Potassium 3.9 3.5 - 5.5 mmol/L LAB CHEMISTRY METHOD 07/30/2024 12:[address] [facility] Chloride 96 96 - 110 mmol/L LAB CHEMISTRY METHOD 07/30/2024 12:[address] [facility] CO2 30 21 - 32 mmol/L LAB CHEMISTRY METHOD 07/30/2024 12:[address] [facility] Anion Gap 7 3 - 11 LAB CHEMISTRY METHOD 07/30/2024 12:09 PM EDT [facility] Glucose 71 70 - 100 mg/dL LAB CHEMISTRY METHOD 07/30/2024 12:[address] [facility] BUN 13 5 - 25 mg/dL LAB CHEMISTRY METHOD 07/30/2024 12:[address] [facility] Creatinine 0.80 0.50 - 1.10 mg/dL LAB CHEMISTRY METHOD 07/30/2024 12:09 PM T [facility] LAB eGFR 76 >=60 mL/min/1. 73m2 LAB CHEMISTRY METHOD 07/30/2024 12:09 PM T [facility] LAB Comment:Calculation based on the Chronic Kidney Disease Epidemiology Collaboration (CKD-EPI) equation refit without adjustment for race. BUN/Creatinine Ratio 16.3 LAB CHEMISTRY METHOD 07/30/2024 12:[address] [facility] Calcium 8.3(L) 8.5 - 10.5 mg/dL LAB CHEMISTRY METHOD 07/30/2024 12:[address] [facility] Blood Venous blood specimen / Unknown Venipuncture / Unknown 07/30/2024 6:05 AM EDT 07/30/2024 10:35 AM EDT us Araceli Maya MD LAB BLOOD ORDERABLES Fin al Result [facility] [address] [place] [address], from Last 3 Months Insurance MEDICAID - [place] [employer] MEDICARE Care Teams Broom Bundler Relationship Specialty Start Date End Date Vivian Massey DO [address] [place] [address] PCP - General Internal Medicine 07/21/17
== END 2024-08-02 08:20 | disposition home or self-care (01) ==
LOC: HO.HOSX 08:19
PROVIDERS: Visit Provider Physician Assistant
DX: M25.571 Pain in right ankle and joints of right foot (principal); S82.842A Displaced bimalleolar fracture of left lower leg, initial encounter for closed fracture
CPT/HCPCS: 27808; 73610

== ENCOUNTER 2024-08-02 11:18 | Outpatient (AMB) | payer OTHER, MEDICAID, SELFPAY ==
--- OUTSIDE RECORDS SUMMARY | 2024-08-02 11:22 | XMS_ITS | Clinical Summary ---
Author Organization 175 [facility] Address [address] [place] [phone] Phone Care Team Providers Care Senior Power Plant Operator Name Role Phone Vivian Massey Primary Care Provider +1- [phone] Medications Mounjaro 2.5 mg/0.5 mL injectionIndica tions:Class 3 severe obesity due to excess calories with serious comorbidity and body mass index (BMI) of 40.0 to 44.9 in adult (CMS/HCC V24, CMS/HCC V28) INJECT ONE PEN (=2.5MG) SUBCUTANEOUSLY ONCE A WEEK DIRECTED 2 mL 07/02/19 Active Encounters Date Type Department Care Team Description 07/29/2024 Lab Requisition [facility] [address] [place] [address] Araceli Maya MD Essential (primary) hypertension; Anemia, unspecified; Unspecified osteoarthritis, unspecified site 07/22/2024 Lab Requisition [facility] Lab [address] [place] [address] Araceli Maya MD Essential (primary) hypertension; Anemia, unspecified; Unspecified osteoarthritis, unspecified site 07/20/2024 Lab Requisition [facility] Lab [address] [place] [address] Araceli Maya MD Anemia, unspecified; Essential (primary) hypertension; Vitamin D deficiency, unspecified 06/05/2024 Telephone Bariatric Surgery [facility] 175 [facility] [address] [place] [address] Negra Peterson PA 05/28/2024 Telephone Bariatric Surgery - [place] 175 [facility] [address] [place] [address] Negra Peterson PA Advice Only (Noemi is not working) from Last 3 Months Immunizations Name Administration Dates Next Due Moderna SARS-CoV-2 COVID-19, mRNA, LNP-S, preservative free 07/13/2020,06/15/2020 Surgical History Surgery Date Site/Laterality Comments BREAST REDUCTION 1997 PROCEDURE: ID BREAST REDUCTION SECTION 1982 PROCEDURE: HISTORICAL BLADDER SUSPENSION PROCEDURE: HISTORICAL BLADDER SUSPENSION; COMMENT: Marcus Corin operation GASTRIC BYPASS 2005 PROCEDURE: ID GASTRIC RSTCV W/BYP W/SM INT RCNSTJ LIMIT ABSRPJ; COMMENT: Lap band CHOLECYSTECTOMY PROCEDURE: HISTORICAL CHOLECYSTECTOMY OTHER SURGICAL HISTORY 1999 PROCEDURE: HISTORY OTHER; COMMENT: hernia repair of unknown site EYE SURGERY 2005 PROCEDURE: HISTORICAL EYE SURGERY; COMMENT: retinal detachment, Dr Javier Medical History Medical History Date Comments Asthma 05/05/2005 DX:Asthma Depressive disorder 12/28/2005 DX:Depressiv e disorder Fatty liver 10/30/2017 DX:Fatty liver Hx of laparoscopic gastric banding 10/30/2017 DX:Hx of laparoscopic gastric banding; COMMENT: 2005 Essential hypertension 05/05/2005 DX:Essent ial hypertension Mixed urge and stress incontinence 10/26/2010 DX:Mixed urge and stress incontinence; COMMENT: Followed by Noreen Trujillo; hx of a sling Obesity 09/11/2013 DX:Obesity; COMM ENT: BMI 38.63 on 08/01/13. Osteoarthrosis involving lower leg 07/04/2005 DX:Osteoarthrosis involving lower leg Herniation of rectum into vagina 10/26/2010 DX:Herniation of rectum into vagina; COMMENT: Followed by Noreen Trujillo; hx of a sling IMO update Renal calculi 10/30/2017 DX:Renal calculi Family History Medical History Relation Name Comments Other: AGE 96 Father Cataracts Maternal Grandfather Cataracts Maternal Grandmother brain t umor Breast cancer Mother cataract Relation Name Status Comments Father Maternal Grandfather Maternal Grandmother Mother Social History Tobacco Use Types Packs/Day Years Used Date Smoking Tobacco: Former Cigarettes Q uit: 12/27/1997 Smokeless Tobacco: Never Alcohol Use Standard Drinks/Week Comments No 0 (1 standard drink = 0.6 oz pur e alcohol) Comments Unknown Sex and Gender Information Value Date Recorded Sex Assigned at Not on file Legal Sex Female 2:13 PM EST Gender Identity Not on file Sexual Orientation Not on file Obstetrics History Last Filed Vital Signs Vital Sign Reading Time Taken Comments Blood Pressure 152/83 12/28/2023 1:35 PM EDT Pulse 80 12/28/2023 1:35 PM EDT Temperature - - Respiratory Rate - - Oxygen Saturation - - Inhaled Oxygen Concentration - - Weight 95.4 kg (210 lb 6.4 oz) 12/28/2023 1:34 P M EDT Height 152.4 cm (5') 12/28/2023 1:34 PM EDT Body Mass Index 41.09 12/28/2023 1:34 PM EDT Plan of Treatment Upcoming Encounters Date Type Department Care Team (Late st Contact Info) Description 09/03/2024 1:15 PM EDT Office Visit Bariatric Surgery - [place] 175 [facility] [address] [place] [phone] Negra Peterson PA [address] [address] Health Maintenance Due Date Last Done Comments Hepatitis A Vaccines (1 of 2 - Risk 2-dose series) 1967 Hepatitis B Vaccines (1 of 3 - Risk 3-dose series) 2008 Zoster Vaccines (2 of 3) 11/24/2016 09/29/2016 Falls Risk Assessment 02/19/2022 Hepatitis C Screening 02/19/2022 Medicare Annual Wellness Visit 02/19/2022 Osteoporosis Screening (Bone Density Screening) 02/19/2022 Social Influencers of Health Screening 02/19/2022 RSV Immunization Adult Patients (1 - 1-dose 75+ series) 2023 COVID-19 Vaccine (3 - season) 2023 07/13/2020, 06/15/2020 Depression Screening 12/10/2024 12/11/2023 Hypertension/CHF/CAD Annual BMP Blood Test 07/30/2025 07/30/2024, 07/23/2024, 07/20/2024, Additional history exists DTaP,Tdap,and Td Vaccines (3 - Td or Tdap) 09/29/2026 09/29/2016, 10/31/2006 Cholesterol Screening (Lipid Panel) 07/05/2028 07/06/2023 Pneumococcal Vaccine: 50+ Years Completed 02/09/2023, 11/11/2016, 04/28/2016, Additional history exists Influenza Vaccine Completed 12/04/2023, , 01/04/2022, Additional history exists HIB Vaccines Aged Out No longer eligi ble based on patient's age to complete this topic HPV Vaccines Aged Out No longer eligi ble based on patient's age to complete this topic IPV Vaccines Aged Out No longer eligi ble based on patient's age to complete this topic MMR Vaccines Aged Out No longer eligi ble based on patient's age to complete this topic Meningococcal ACWY Vaccine Aged Out N o longer eligible based on patient's age to complete this topic Meningococcal B Vaccine Aged Out No l onger eligible based on patient's age to complete this topic RSV Immunization Patients Under 20 months Aged Out No longer eligible based on patient's age to complete this topic Varicella Vaccines Aged Out No longer eligible based on patient's age to complete this topic Procedures Procedure Name Priority Date/Time Associated Diagnosis Comments BASIC METABOLIC PANEL Routine 07/30/2024 6:05 AM EDT Essential (primary) hypertension Anemia, unspecified Unspecified osteoarthritis, unspecified site COMPLETE BLOOD COUNT Routine 07/30/2024 6:05 AM EDT Essential (primary) hypertension Anemia, unspecified Unspecified osteoarthritis, unspecified site BASIC METABOLIC PANEL Routine 07/23/2024 7:15 AM EDT Essential (primary) hypertension Anemia, unspecified Unspecified osteoarthritis, unspecified site COMPLETE BLOOD COUNT Routine 07/23/2024 7:15 AM EDT Essential (primary) hypertension Anemia, unspecified Unspecified osteoarthritis, unspecified site BASIC METABOLIC PANEL Routine 07/20/2024 6:07 AM EDT Anemia, unspecified Essential (primary) hypertension Vitamin D deficiency, unspecified COMPLETE BLOOD COUNT Routine 07/20/2024 6:07 AM EDT Anemia, unspecified Essential (primary) hypertension Vitamin D deficiency, unspecified from Last 3 Months Results * (ABNORMAL) Complete blood count (07/30/2024 6:05 AM EDT) Only the most recent of3 resultswithin the time period is included. WBC 4.6(L) 4.8 - 10.8 K/mcL LAB HEMETOLOGY METHOD 07/30/2024 10:49 AM [facility] LAB RBC 3.40(L) 3.80 - 4.80 M/mcL LAB HEMETOLOGY METHOD 07/30/2024 10:49 AM [facility] LAB Hemoglobin 10.5(L) 11.5 - 16.0 g/dL LAB HEMETOLOGY METHOD 07/30/2024 10:49 AM [facility] LAB Hematocrit 32.1(L) 35.0 - 47.0 % LAB HEMETOLOGY METHOD 07/30/2024 10:49 AM [facility] LAB MCV 95.3 79.0 - 98.0 FL LAB HEMETOLOGY METHOD 07/30/2024 10:49 AM [facility] LAB MCH 31.2 27.0 - 32.0 pcg LAB HEMETOLOGY METHOD 07/30/2024 10:49 AM [facility] LAB MCHC 32.7 32.0 - 37.0 g/dL LAB HEMETOLOGY METHOD 07/30/2024 10:49 AM [facility] LAB RDW 13.5 11.0 - 15.0 % LAB HEMETOLOGY METHOD 07/30/2024 10:49 AM [facility] LAB Platelets 366 130 - 400 K/mcL LAB HEMETOLOGY METHOD 07/30/2024 10:49 AM [facility] LAB MPV 8.9 7.0 - 11.0 FL LAB HEMETOLOGY METHOD 07/30/2024 10:49 AM EDT [facility] NRBC 0.0 <1.0 % [facility] 07/30/2024 10:49 AM EDT [facility] NRBC Absolute 0.00 <0.10 K/mcL [facility] 07/30/2024 10:49 AM EDT [facility] Blood Venous blood specimen / Unknown Venipuncture / Unknown 07/30/2024 6:05 AM EDT 07/30/2024 10:35 AM EDT us Araceli Maya MD LAB BLOOD ORDERABLES Fin al Result [facility] [address] [place] [address], * (ABNORMAL) Basic metabolic panel (07/30/2024 6:05 AM EDT) Only the most recent of3 resultswithin the time period is included. Sodium 133 133 - 145 mmol/L LAB CHEMISTRY METHOD 07/30/2024 12:09 PM [facility] Potassium 3.9 3.5 - 5.5 mmol/L LAB CHEMISTRY METHOD 07/30/2024 12:09 PM [facility] Chloride 96 96 - 110 mmol/L LAB CHEMISTRY METHOD 07/30/2024 12:09 PM [facility] CO2 30 21 - 32 mmol/L LAB CHEMISTRY METHOD 07/30/2024 12:09 PM [facility] Anion Gap 7 3 - 11 LAB CHEMISTRY METHOD 07/30/2024 12:09 PM [facility] Glucose 71 70 - 100 mg/dL LAB CHEMISTRY METHOD 07/30/2024 12:09 PM [facility] BUN 13 5 - 25 mg/dL LAB CHEMISTRY METHOD 07/30/2024 12:09 PM EDT [facility] Creatinine 0.80 0.50 - 1.10 mg/dL LAB CHEMISTRY METHOD 07/30/2024 12:09 PM EDT [facility] eGFR 76 >=60 mL/min/1. 73m2 LAB CHEMISTRY METHOD 07/30/2024 12:09 PM EDT [facility] Comment:Calculation based on the Chronic Kidney Disease Epidemiology Collaboration (CKD-EPI) equation refit without adjustment for race. BUN/Creatinine Ratio 16.3 LAB CHEMISTRY METHOD 07/30/2024 12:09 PM EDT [facility] Calcium 8.3(L) 8.5 - 10.5 mg/dL LAB CHEMISTRY METHOD 07/30/2024 12:09 PM EDT [facility] Blood Venous blood specimen / Unknown Venipuncture / Unknown 07/30/2024 6:05 AM EDT 07/30/2024 10:35 AM EDT us Araceli Maya MD LAB BLOOD ORDERABLES Fin al Result [facility] [address] [place] [address], [place] [phone] from Last 3 Months Insurance MEDICAID - [place] [employer] MEDICARE Care Teams Senior Power Plant Operator Relationship Specialty Start Date End Date Vivian Massey DO [address] [place] [address] PCP - General Internal Medicine 07/21/17
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
[2024-08-02 11:34] VITALS: BMI 41.8
== END 2024-08-02 12:41 | disposition home or self-care (01) ==
LOC: HO.HOS 11:19
PROVIDERS: PCP Family Medicine; Visit Provider Physician Assistant
DX: S82.842A Displaced bimalleolar fracture of left lower leg, initial encounter for closed fracture (principal)
CPT/HCPCS: 27808; 99214

== ENCOUNTER → 2024-08-02 11:20 | Outpatient (BNV) | payer MEDICAID, OTHER, SELFPAY | PROVIDERS: Visit Provider Specialist | DX: S82.51XA Displaced fracture of medial malleolus of right tibia, initial encounter for closed fracture (principal); S82.831A Other fracture of upper and lower end of right fibula, initial encounter for closed fracture | CPT/HCPCS: 73610 ==

== ENCOUNTER 2024-08-30 08:38 | Outpatient (REF) | payer OTHER, MEDICAID, SELFPAY ==
--- NOTE | ~2024-08-30 | XR_ITS ---
EXAMINATION: XR ANKLE, RIGHT CLINICAL INFORMATION: M25.579 - Pain in unspecified ankle and joints of unspecified foot COMPARISON: 08/02/2024, 07/13/2024. TECHNIQUE: AP, lateral, and mortise views of the right ankle. FINDINGS: Redemonstration of bimalleolar fractures, with intra-articular involvement. Fracture lines are still partially seen although have become somewhat sclerotic, indicating healing. There is anatomical alignment. Mortise remains intact. The talar dome is normal. Mild disuse osteopenia. Soft tissues appear grossly normal. XR/XR ankle RT min 3V IMPRESSION: Healing bimalleolar fractures in anatomical alignment. Disuse osteopenia. Electronically signed by: Richard Henson MD 08/30/2024 12:19 PM EDT
--- OUTSIDE RECORDS SUMMARY | 2024-09-02 08:57 | XMS_ITS | Encounter Summary ---
Author Organization [facility] Address [address] [place] [address] Care Team Providers Care Station Captain Name Role Phone Vivian Massey Primary Care Provider +1- [phone] Encounter Details Date Type Department Care Team (Late Contact Info) Description 08/12/2024 Lab Requisition [facility] - Main Lab 299 [facility] [place] [address] Araceli Maya MD [address] [address] Essential (primary) hypertension; Anemia, unspecified; Unspecified osteoarthritis, [...] PM EDT Office Visit Bariatric Surgery - [place] 175 [facility] 120 [place] [address] Negra Peterson PA 175 [facility] 120 [place] [address] documented as of this encounter Procedures Procedure [...] mmol/L LAB CHEMISTRY METHOD 08/13/2024 10:09 AM [facility] Potassium 3.7 3.5 - 5.5 mmol/L LAB CHEMISTRY METHOD 08/13/2024 10:09 AM [facility] Chloride 99 96 - 110 mmol/L LAB CHEMISTRY METHOD 08/13/2024 10:09 AM [facility] CO2 33(H) 21 - 32 mmol/L LAB CHEMISTRY METHOD 08/13/2024 10:09 AM [facility] Anion Gap 3 3 - 11 LAB CHEMISTRY METHOD 08/13/2024 10:09 AM [facility] Glucose 80 70 - 100 mg/dL LAB CHEMISTRY METHOD 08/13/2024 10:09 AM [facility] BUN 12 5 - 25 mg/dL LAB CHEMISTRY METHOD 08/13/2024 10:09 AM [facility] Creatinine 0.76 0.50 - 1.10 mg/dL LAB CHEMISTRY METHOD 08/13/2024 10:09 AM [facility] eGFR 81 >=60 mL/min/1. 73m2 LAB CHEMISTRY METHOD 08/13/2024 10:09 AM [facility] Comment:Calculation based on the Chronic Kidney Disease Epidemiology Collaboration (CKD-EPI) equation refit without adjustment for race. BUN/Creatinine Ratio 15.8 LAB CHEMISTRY METHOD 08/13/2024 10:09 AM [facility] Calcium 9.0 8.5 - 10.5 mg/dL LAB CHEMISTRY METHOD 08/13/2024 10:09 AM EDT [facility] Blood Venous blood specimen / Unknown Venipuncture / Unknown 08/13/2024 6:05 AM EDT 08/13/2024 9:23 AM EDT us Araceli Maya MD LAB BLOOD ORDERABLES Fin al Result [facility] [address] [place] [address], * (ABNORMAL) Complete blood count (08/13/2024 6:05 AM EDT) WBC 3.5(L) 4.8 - 10.8 K/mcL LAB HEMETOLOGY METHOD 08/13/2024 9:52 AM [facility] RBC 3.50(L) 3.80 - 4.80 M/mcL LAB HEMETOLOGY METHOD 08/13/2024 9:52 AM [facility] Hemoglobin 10.9(L) 11.5 - 16.0 g/dL LAB HEMETOLOGY METHOD 08/13/2024 9:52 AM [facility] Hematocrit 33.8(L) 35.0 - 47.0 % LAB HEMETOLOGY METHOD 08/13/2024 9:52 AM [facility] MCV 95.8 79.0 - 98.0 FL LAB HEMETOLOGY METHOD 08/13/2024 9:52 AM [facility] MCH 30.9 27.0 - 32.0 pcg LAB HEMETOLOGY METHOD 08/13/2024 9:52 AM [facility] MCHC 32.2 32.0 - 37.0 g/dL LAB HEMETOLOGY METHOD 08/13/2024 9:52 AM EDT [facility] RDW 14.1 11.0 - 15.0 % LAB HEMETOLOGY METHOD 08/13/2024 9:52 AM EDT [facility] Platelets 224 130 - 400 K/mcL LAB HEMETOLOGY METHOD 08/13/2024 9:52 AM EDT [facility] MPV 9.0 7.0 - 11.0 FL LAB HEMETOLOGY METHOD 08/13/2024 9:52 AM EDT [facility] NRBC 0.0 <1.0 % LAB HEMETOLOGY METHOD 08/13/2024 9:52 AM EDT [facility] NRBC Absolute 0.00 <0.10 K/mcL LAB HEMETOLOGY METHOD 08/13/2024 9:52 AM EDT [facility] Blood Venous blood specimen / Unknown Venipuncture / Unknown 08/13/2024 6:05 AM EDT 08/13/2024 9:22 AM EDT us Araceli Maya MD LAB BLOOD ORDERABLES Fin al Result [facility] [address] [place] [address], documented in this encounter Visit Diagnoses Diagnosis Essential (primary) hypertension Unspecified essential hypertension Anemia, unspecified Unspecified osteoarthritis, unspecified site documented in this encounter Care Teams Station Captain Relationship Specialty Start Date End Date Vivian Massey DO [address] [place] [address] PCP - General Internal Medicine 07/21/17 documented as of this encounter
== END 2024-08-30 08:39 | disposition home or self-care (01) ==
LOC: HO.HOSX 08:38
PROVIDERS: Visit Provider Physician Assistant
DX: S82.841D Displaced bimalleolar fracture of right lower leg, subsequent encounter for closed fracture with routine healing (principal)
CPT/HCPCS: 29405; 73610

== ENCOUNTER 2024-08-30 11:40 | Outpatient (AMB) | payer OTHER, MEDICAID, SELFPAY ==
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
--- OUTSIDE RECORDS SUMMARY | 2024-08-30 12:03 | XMS_ITS | Encounter Summary ---
Author Organization [facility] Address [address] [place] [address] Care Team Providers Care Electronic Publications Specialist Name Role Phone Vivian Massey Primary Care Provider +1- [phone] Encounter Details Date Type Department Care Team (Late Contact Info) Description 08/12/2024 Lab Requisition [facility] - Main Lab 299 [facility] [place] [address] Araceli Maya MD [address] [address] Essential (primary) hypertension; Anemia, unspecified; Unspecified osteoarthritis, unspecified site Social History Tobacco Use Types Packs/Day Years [...] on file Sexual Orientation Not on file documented as of this encounter Plan of Treatment Upcoming Encounters Date Type Department Care Team (Late st Contact Info) Description 09/03/2024 1:15 PM EDT Office Visit Bariatric Surgery - [place] 175 [facility] [address] [place] [address] Negra Peterson PA 175 [facility] [address] [place] [address] documented as of this encounter Procedures Procedure Name Priority Date/Time Associated Diagnosis Comments COMPLETE BLOOD COUNT Routine 08/13/2024 6:05 AM EDT Essential (primary) hypertension Anemia, unspecified Unspecified osteoarthritis, unspecified site BASIC METABOLIC PANEL Routine 08/13/2024 6:05 AM EDT Essential (primary) hypertension Anemia, unspecified Unspecified osteoarthritis, unspecified site documented in this encounter Results * (ABNORMAL) Basic metabolic panel (08/13/2024 6:05 AM EDT) Sodium 135 133 - 145 mmol/L LAB CHEMISTRY METHOD 08/13/2024 10:09 AM [facility] Potassium 3.7 3.5 - 5.5 mmol/L LAB CHEMISTRY METHOD 08/13/2024 10:09 AM [facility] Chloride 99 96 - 110 mmol/L LAB CHEMISTRY METHOD 08/13/2024 10:09 AM [facility] CO2 33(H) 21 - 32 mmol/L LAB CHEMISTRY METHOD 08/13/2024 10:09 AM [facility] Anion Gap 3 3 - 11 LAB CHEMISTRY METHOD 08/13/2024 10:09 AM [facility] Glucose 80 70 - 100 mg/dL LAB CHEMISTRY METHOD 08/13/2024 10:09 AM [facility] BUN 12 5 - 25 mg/dL LAB CHEMISTRY METHOD 08/13/2024 10:09 AM [facility] Creatinine 0.76 0.50 - 1.10 mg/dL LAB CHEMISTRY METHOD 08/13/2024 10:09 AM [facility] eGFR 81 >=60 mL/min/1. 73m2 LAB CHEMISTRY METHOD 08/13/2024 10:09 AM [facility] Comment:Calculation based on the Chronic Kidney Disease Epidemiology Collaboration (CKD-EPI) equation refit without adjustment for race. BUN/Creatinine Ratio 15.8 LAB CHEMISTRY METHOD 08/13/2024 10:09 AM [facility] Calcium 9.0 8.5 - 10.5 mg/dL LAB CHEMISTRY METHOD 08/13/2024 10:09 AM EDT [facility] Blood Venous blood specimen / Unknown Venipuncture / Unknown 08/13/2024 6:05 AM EDT 08/13/2024 9:23 AM EDT us Araceli Maya MD LAB BLOOD ORDERABLES Fin al Result [facility] [address] [place] [address], * (ABNORMAL) Complete blood count (08/13/2024 6:05 AM EDT) WBC 3.5(L) 4.8 - 10.8 K/mcL LAB HEMETOLOGY METHOD 08/13/2024 9:52 AM [facility] RBC 3.50(L) 3.80 - 4.80 M/mcL LAB HEMETOLOGY METHOD 08/13/2024 9:52 AM [facility] Hemoglobin 10.9(L) 11.5 - 16.0 g/dL LAB HEMETOLOGY METHOD 08/13/2024 9:52 AM [facility] Hematocrit 33.8(L) 35.0 - 47.0 % LAB HEMETOLOGY METHOD 08/13/2024 9:52 AM [facility] MCV 95.8 79.0 - 98.0 FL LAB HEMETOLOGY METHOD 08/13/2024 9:52 AM [facility] MCH 30.9 27.0 - 32.0 pcg LAB HEMETOLOGY METHOD 08/13/2024 9:52 AM [facility] MCHC 32.2 32.0 - 37.0 g/dL LAB HEMETOLOGY METHOD 08/13/2024 9:52 AM EDT [facility] RDW 14.1 11.0 - 15.0 % LAB HEMETOLOGY METHOD 08/13/2024 9:52 AM EDT [facility] Platelets 224 130 - 400 K/mcL LAB HEMETOLOGY METHOD 08/13/2024 9:52 AM EDT [facility] MPV 9.0 7.0 - 11.0 FL LAB HEMETOLOGY METHOD 08/13/2024 9:52 AM EDT [facility] NRBC 0.0 <1.0 % LAB HEMETOLOGY METHOD 08/13/2024 9:52 AM EDT [facility] NRBC Absolute 0.00 <0.10 K/mcL LAB HEMETOLOGY METHOD 08/13/2024 9:52 AM EDT [facility] Blood Venous blood specimen / Unknown Venipuncture / Unknown 08/13/2024 6:05 AM EDT 08/13/2024 9:22 AM EDT us Araceli Maya MD LAB BLOOD ORDERABLES Fin al Result [facility] [address] [place] [address], documented in this encounter Visit Diagnoses Diagnosis Essential (primary) hypertension Unspecified essential hypertension Anemia, unspecified Unspecified osteoarthritis, unspecified site documented in this encounter Care Teams Electronic Publications Specialist Relationship Specialty Start Date End Date Vivian Massey DO [address] [place] [address] PCP - General Internal Medicine 07/21/17 documented as of this encounter
== END 2024-08-30 12:46 | disposition home or self-care (01) ==
LOC: HO.HOS 11:40
PROVIDERS: Visit Provider Physician Assistant
DX: S82.842A Displaced bimalleolar fracture of left lower leg, initial encounter for closed fracture (principal)
CPT/HCPCS: 29405; 99024

== ENCOUNTER → 2024-08-30 11:49 | Outpatient (BNV) | payer OTHER, MEDICAID, SELFPAY | PROVIDERS: Visit Provider Radiology Diagnostic Radiology | DX: S82.844D Nondisplaced bimalleolar fracture of right lower leg, subsequent encounter for closed fracture with routine healing (principal) | CPT/HCPCS: 73610 ==

== ENCOUNTER 2024-09-26 10:33 | Outpatient (REF) | payer OTHER, SELFPAY ==
--- NOTE | ~2024-09-26 | XR_ITS ---
EXAMINATION: XR ANKLE, RIGHT CLINICAL INFORMATION: M25.579 - Pain in unspecified ankle and joints of unspecified foot , follow-up fracture COMPARISON: August 02 and August 30, 2024 TECHNIQUE: AP, lateral, and mortise views of the right ankle. FINDINGS: Partially obscured fracture line remains visible in the lateral malleolus at the level the joint line and syndesmotic ligament. There is no widening of the syndesmosis. Fracture line involving the medial malleolus extending from the medial tibial plafond to the medial metaphysis is very subtle. There is also periosteal new bone formation. There is chronic calcification caudal to the medial malleolus tip. XR/XR ankle RT min 3V IMPRESSION: Continued healing of bimalleolar fractures. Electronically signed by: Galindo Mata MD 09/26/2024 02:00 PM EDT
--- OUTSIDE RECORDS SUMMARY | 2024-09-27 11:05 | XMS_ITS | Clinical Summary ---
Author Organization [facility] Address [address] [place] [address] Care Team Providers Care Electrician Control Equipment Name Role Phone Vidal Pinzon MD Primary Care Provider [phone] Medications Medication Sig Dispensed Refills Start Date End Date Status PROAIR HFA 108 (90 Base) MCG/ACT inhaler INHALE 2 PUFFS BY MOUTH EVERY 4 TO 6 HOURS NEEDED 0 02/14/2020 Active alendronate (FOSAMAX) tablet 70 mg take 1 tablet once a week with 6 to 8 oz of water 30 min before first food of day. do not lie down for 30 minutes (BACK) 0 01/30/2020 Active ASPIRIN LOW DOSE 81 MG EC tablet Take 81 mg by mouth every night at bedtime. 0 01/30/2020 Active atorvastatin (LIPITOR) tablet 20 mg Take 20 mg by mouth every night at bedtime. 0 01/06/2020 Active buPROPion (WELLBUTRIN XL) 150 MG 24 hr tablet TAKE 1 TABLET BY MOUTH AT BEDTIME (MOOD) 0 01/30/2020 Active benzonatate (TESSALON) 100 MG capsule TAKE 1 CAPSULE BY MOUTH THREE TIMES DAILY NEEDED FOR COUGH 0 01/06/2020 Active FEROSUL 325 (65 Fe) MG tablet TAKE 1 TABLET BY MOUTH AT BEDTIME FOR FOR ANEMIA 0 01/30/2020 Active gabapentin (NEURONTIN) 100 MG capsule TAKE 1 CAPSULE BY MOUTH THREE TIMES DAILY IN THE MORNING, EVENING, AND BEDTIME ((for nerve pain)) 0 01/30/2020 Active hydrOXYzine (VISTARIL) 25 MG capsule TAKE 1 CAPSULE BY MOUTH EVERY 6 HOURS NEEDED ANXIETY 0 01/02/2020 Active lisinopril (PRINIVIL,ZESTRIL) tablet 5 mg Take 5 mg by mouth every morning. for BP 0 01/06/2020 Active loratadine (CLARITIN) 10 MG tablet TAKE 1 TABLET BY MOUTH EVERY MORNING FOR ALLERGIES 0 01/30/2020 Active Melatonin 5 MG TABS Take 1 tablet by mouth every night at bedtime as needed. for sleepo 0 01/30/2020 Active sertraline (ZOLOFT) 50 MG tablet Take 50 mg by mouth every morning. 0 12/09/2019 Active traZODone (DESYREL) 100 MG tablet TAKE 2 TABLETS BY MOUTH EVERY DAY AT BEDTIME 0 12/09/2019 Active Family History Medical History Relation Name Comments Diabetes Brother Cancer Mother Diabetes Sister Relation Name Status Comments Brother Mother Sister Social History Tobacco Use Types Packs/Day Years Used Date Smoking Tobacco: Never Assessed Sex and Gender Information Value Date Recorded Sex Assigned at Not on file Gender Identity Not on file Sexual Orientation Not on file Plan of Treatment Health Maintenance Due Date Last Done Comments Hepatitis C Screening 1950 COVID-19 Vaccine (#1) 1948 Depression Screening 1960 Preventative Health Evaluation 1966 DTap / Tdap / Td (1 - Tdap) 1967 Shingrix-Zoster Vaccine (1 of 2) 1998 Fall Risk Assessment 2013 Osteoporosis Screening (DEXA Scan) 2013 Pneumococcal Vaccine (1 of 1 - PCV) 2013 RSV Adult > 60+ Yrs or Pregn ant (1 - 1-dose 75+ series) 2023 Influenza Vaccine (#1) 2024 Hepatitis B Vaccines Aged Out No long er eligible based on patient's age to complete this topic RSV Ped < 20 months Aged Out No longe r eligible based on patient's age to complete this topic Care Teams Electrician Control Equipment Relationship Specialty Start Date End Date Vidal Pinzon MD [address] [place] [address] PCP - General Family Medicine 02/18/20
--- OUTSIDE RECORDS SUMMARY | 2024-09-27 11:05 | XMS_ITS | Clinical Summary ---
Author Organization [facility] Address [address] [address] Phone Care Team Providers Care Straightener Hand Name Role Phone Clementine Masseyfer Primary Care Provider [phone] Social History Tobacco Use Types Packs/Day Years Used Date Smoking Tobacco: Never Assessed Education Answer Date Recorded Are you interested in more education? Not on rubia e 02/20/2023 Are you concerned about learning? Not on file 02/20/2023 No 02/20/2023 No 02/20/2023 Digital Access Answer Date Recorded No 02/20/2023 No 02/20/2023 Reliable internet access at home? Not on file 02/20/2023 Device with a working camera? Not on file Comments Unknown Sex and Gender Information Value Date Recorded Sex Assigned at Female 01/09/2023 3:55 PM EDT Legal Sex Female 10:05 PM EDT Gender Identity Female 01/09/2023 3:55 PM EDT Sexual Orientation Straight 01/09/2023 3: 55 PM EDT Plan of Treatment Health Maintenance Due Date Last Done Comments Adult Td,Tdap Booster 1948 LIPID PANEL 1948 DEPRESSION SCREENING 1960 SMOKING Hx and SMOKELESS TOB ACCO SCREENING 1961 HEPATITIS C SCREENING 1966 PNEUMOCOCCAL VACCINES (50+ y ears) (1 of 1 - PCV) 1998 ZOSTER VACCINES (1 of 2) 1998 OSTEOPOROSIS SCREENING INITI AL (ONE-TIME) 2013 RSV VACCINE (1 - 1-dose 75+ series) 2023 COVID-19 VACCINE (1 - 2024-2 5 season) 2023 HEPATITIS A VACCINES Aged Out No long er eligible based on patient's age to complete this topic HIB VACCINES Aged Out No longer eligi ble based on patient's age to complete this topic MENINGOCOCCAL VACCINES (ACWY) Aged Out No longer eligible based on patient's age to complete this topic MENINGOCOCCAL VACCINES (B) Aged Out N o longer eligible based on patient's age to complete this topic Medical Devices Not on file Insurance [facility] MEDICARE REPLACEMENT MEDICARE PART A & B [facility] MEDICARE REPLACEMENT MEDICARE PART A & B Member Subscriber Plan / Payer (Ef fective 2013-Present) Name:Jennifer Whitehead Member ID:[id number] Relation to Subscriber:Self Name:Jennifer Whitehead Subscriber ID:[id number] Payer ID:[id number] Group ID:Not on file Type:Medicare Address: [employer] [facility] [address] [place] [address] [facility] MEDICARE REPLACEMENT MEDICARE PART A & B Member Subscriber Plan / Payer (Ef fective 2013-Present) Name:Jennifer Whitehead Member ID:[id number] Relation to Subscriber:Self Name:Jennifer Whitehead Rachel Subscriber ID:[id number] Payer ID:[id number] Group ID:Not on file Type:Medicare Address: [employer] [facility] [address] [place] [address] [facility] [id number] [place] [phone] [facility] MEDICARE REPLACEMENT MEDICARE PART A & B [place] [address] [place] [address] [facility] MEDICARE REPLACEMENT MEDICARE PART A & [facility] MEDICARE REPLACEMENT MEDICARE PART A & B [facility] Care Teams Straightener Hand Relationship Specialty Start Date End Date Vivian Massey DO [address] [place] [address] PCP - General Family Medicine 01/09/23 Additional Source Comments The information contained in this document represents components of the legal health record. It is not the complete legal health record.[facility]
--- OUTSIDE RECORDS SUMMARY | 2024-09-27 11:05 | XMS_ITS | Encounter Summary ---
Author Organization [facility] Address [address] [place] [address] Care Team Providers Care Tarper Name Role Phone Vivian Massey Primary Care Provider [phone] Encounter Details Date Type Department Care Team ([facility] st Contact Info) Description 09/25/2024 Lab Requisition [facility] - Main Lab [address] [place] [address] Araceli Maya MD [address] [address] Hypokalemia Social History Tobacco Use Types Packs/Day [...] LAB CHEMISTRY METHOD 09/26/2024 9:09 AM EDT [facility] Potassium 3.6 3.5 - 5.5 mmol/L LAB CHEMISTRY METHOD 09/26/2024 9:09 AM [facility] Chloride 100 96 - 110 mmol/L LAB CHEMISTRY METHOD 09/26/2024 9:09 AM [facility] CO2 33(H) 21 - 32 mmol/L LAB CHEMISTRY METHOD 09/26/2024 9:09 AM [facility] Anion Gap 3 3 - 11 LAB CHEMISTRY METHOD 09/26/2024 9:09 AM [facility] Glucose 76 70 - 100 mg/dL LAB CHEMISTRY METHOD 09/26/2024 9:09 AM [facility] BUN 14 5 - 25 mg/dL LAB CHEMISTRY METHOD 09/26/2024 9:09 AM [facility] LAB Creatinine 0.82 0.50 - 1.10 mg/dL LAB CHEMISTRY METHOD 09/26/2024 9:09 AM [facility] LAB eGFR 74 >=60 mL/min/1. 73m2 LAB CHEMISTRY METHOD 09/26/2024 9:09 AM [facility] LAB Comment:Calculation based on the Chronic Kidney Disease Epidemiology Collaboration (CKD-EPI) equation refit without adjustment for race. BUN/Creatinine Ratio 17.1 LAB CHEMISTRY METHOD 09/26/2024 9:09 AM [facility] Calcium 9.3 8.5 - 10.5 mg/dL LAB CHEMISTRY METHOD 09/26/2024 9:09 AM [facility] LAB Blood Venous blood specimen / Unknown Venipuncture / Unknown 09/26/2024 5:47 AM EDT 09/26/2024 7:40 AM EDT us Araceli Maya MD LAB BLOOD ORDERABLES Fin al Result [facility] [address] [place] [address], documented in this encounter Visit Diagnoses Diagnosis Hypokalemia Hypopotassemia documented in this encounter Care Teams Tarper Relationship Specialty Start Date End Date Vivian Massey DO [address] [place] [address] PCP - General Internal Medicine 07/21/17 documented as of this encounter
--- OUTSIDE RECORDS SUMMARY | 2024-09-27 11:05 | XMS_ITS | Encounter Summary ---
Author Organization [employer] Address [address] [facility] [address] [place] [address] Care Team Providers Care Groundskeeper Name Role Phone Vivian Massey DO Primary Care Provider [phone] Encounter Details Date Type Department Care Team (Late st Contact Info) Description 04/20/2022 Abstract [facility] MEDICINE [address] [place], [place] [phone] Vivian Massey DO [address] [place], [place] [phone] Social History Tobacco Use Types Packs/Day Years [...] on filedocumented in this encounter Care Teams Groundskeeper Relationship Specialty Start Date End Date Vivian Massey DO [address] [place], [place] [phone] PCP - General Family Medicine 07/27/20 documented as of this encounter
== END 2024-09-26 10:34 | disposition home or self-care (01) ==
LOC: HO.HOSX 10:33
PROVIDERS: Visit Provider Physician Assistant
DX: S82.841A Displaced bimalleolar fracture of right lower leg, initial encounter for closed fracture (principal); M25.571 Pain in right ankle and joints of right foot; V89.2XXA Person injured in unspecified motor-vehicle accident, traffic, initial encounter; Y92.89 Other specified places as the place of occurrence of the external cause; Y93.89 Activity, other specified; Y99.8 Other external cause status
CPT/HCPCS: 29405; 73610

== ENCOUNTER 2024-09-26 12:54 | Outpatient (AMB) | payer OTHER, SELFPAY ==
--- OUTSIDE RECORDS SUMMARY | 2024-09-26 13:19 | XMS_ITS | Encounter Summary ---
Author Organization [employer] Address [address] [facility] [address] [place] [address] Care Team Providers Care Vp Platforms Name Role Phone Vivian Massey DO Primary Care Provider +1- [phone] Encounter Details Date Type Department Care Team (Late st Contact Info) Description 04/20/2022 Abstract [facility] [address] [place], [place] [phone] Vivian Massey DO [address] [place], [place] [phone] Social History Tobacco Use Types Packs/Day Years Used Date Smoking Tobacco: Never Alcohol Use Standard Drinks/Week Comments Never 0 (1 standard drink = 0.6 oz pur e alcohol) Comments Unknown Sex and Gender Information Value Date Recorded Sex Assigned at Female 01/10/2022 10:21 AM EDT Legal Sex Female 10:21 AM EDT Gender Identity Female 01/10/2022 10:21 AM EDT Sexual Orientation Straight 01/10/2022 10 :21 AM EDT documented as of this encounter Plan of Treatment Not on file documented as of this encounter Visit Diagnoses Not on filedocumented in this encounter Care Teams Vp Platforms Relationship Specialty Start Date End Date Vivian Massey DO [address] [place], [place] [phone] PCP - General Family Medicine 07/27/20 documented as of this encounter
--- OUTSIDE RECORDS SUMMARY | 2024-09-26 13:19 | XMS_ITS | Encounter Summary ---
Author Organization [facility] Address [address] [place] [address] Care Team Providers Care Teacher Cclc Name Role Phone Vivian Massey Primary Care Provider +1- [phone] Encounter Details Date Type Department Care Team ([facility] st Contact Info) Description 09/25/2024 Lab Requisition [facility] - Main Lab [address] [place] [address] Araceli Maya MD [address] [address] Hypokalemia Social History Tobacco Use Types Packs/Day Years [...] on file documented as of this encounter Procedures Procedure Name Priority Date/Time Associated Diagnosis Comments BASIC METABOLIC PANEL Routine 09/26/2024 5:47 AM EDT Hypokalemia documented in this encounter Results * (ABNORMAL) Basic metabolic panel (09/26/2024 5:47 AM EDT) Sodium 136 133 - 145 mmol/L LAB CHEMISTRY METHOD 09/26/2024 9:09 AM EDT [facility] Potassium 3.6 3.5 - 5.5 mmol/L LAB CHEMISTRY METHOD 09/26/2024 9:09 AM [facility] Chloride 100 96 - 110 mmol/L LAB CHEMISTRY METHOD 09/26/2024 9:09 AM [facility] CO2 33(H) 21 - 32 mmol/L LAB CHEMISTRY METHOD 09/26/2024 9:09 AM [facility] Anion Gap 3 3 - 11 LAB CHEMISTRY METHOD 09/26/2024 9:09 AM [facility] Glucose 76 70 - 100 mg/dL LAB CHEMISTRY METHOD 09/26/2024 9:09 AM [facility] BUN 14 5 - 25 mg/dL LAB CHEMISTRY METHOD 09/26/2024 9:09 AM [facility] Creatinine 0.82 0.50 - 1.10 mg/dL LAB CHEMISTRY METHOD 09/26/2024 9:09 AM [facility] eGFR 74 >=60 mL/min/1. 73m2 LAB CHEMISTRY METHOD 09/26/2024 9:09 AM [facility] Comment:Calculation based on the Chronic Kidney Disease Epidemiology Collaboration (CKD-EPI) equation refit without adjustment for race. BUN/Creatinine Ratio 17.1 LAB CHEMISTRY METHOD 09/26/2024 9:09 AM [facility] Calcium 9.3 8.5 - 10.5 mg/dL LAB CHEMISTRY METHOD 09/26/2024 9:09 AM [facility] Blood Venous blood specimen / Unknown Venipuncture / Unknown 09/26/2024 5:47 AM EDT 09/26/2024 7:40 AM EDT us Araceli Maya MD LAB BLOOD ORDERABLES Fin al Result [facility] [address] [place] [address], documented in this encounter Visit Diagnoses Diagnosis Hypokalemia Hypopotassemia documented in this encounter Care Teams Teacher Cclc Relationship Specialty Start Date End Date Vivian Massey DO [address] [place] [address] PCP - General Internal Medicine 07/21/17 documented as of this encounter
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
[2024-09-26 13:40] VITALS: BMI 41.8
== END 2024-09-26 14:25 | disposition home or self-care (01) ==
PROVIDERS: PCP Family Medicine; Visit Provider Physician Assistant
DX: S82.842A Displaced bimalleolar fracture of left lower leg, initial encounter for closed fracture (principal)
CPT/HCPCS: 29405; 99024

== ENCOUNTER → 2024-09-26 13:12 | Outpatient (BNV) | payer OTHER, SELFPAY | PROVIDERS: Visit Provider Radiology Diagnostic Radiology | DX: S82.841D Displaced bimalleolar fracture of right lower leg, subsequent encounter for closed fracture with routine healing (principal) | CPT/HCPCS: 73610 ==

== ENCOUNTER 2024-10-11 08:01 | Outpatient (REF) | payer OTHER, SELFPAY ==
--- NOTE | ~2024-10-11 | XR_ITS ---
EXAMINATION: XR ANKLE, RIGHT CLINICAL INFORMATION: M25.579 - Pain in unspecified ankle and joints of unspecified foot COMPARISON: 09/26/2024, 08/30/2024, 08/02/2024. TECHNIQUE: AP, lateral, and mortise views of the right ankle. FINDINGS: Redemonstration of bimalleolar fractures, with intra-articular involvement. Fracture lines are still partially seen although are significantly sclerotic, indicating continued healing. There is anatomical alignment. Mortise remains intact. The talar dome is normal. Mild disuse osteopenia. Soft tissues appear grossly normal. XR/XR ankle RT min 3V IMPRESSION: Continued healing bimalleolar fractures in anatomical alignment. Disuse osteopenia. Electronically signed by: Richard Henson MD 10/11/2024 11:37 AM EDT
--- OUTSIDE RECORDS SUMMARY | 2024-10-14 08:04 | XMS_ITS | Encounter Summary ---
Author Organization [employer] Address [address] [facility] [address] [place] [address] Care Team Providers Care Supervisor Paper Products Name Role Phone Vivian Massey DO Primary Care Provider [phone] Encounter Details Date Type Department Care Team (Late st Contact Info) Description 04/20/2022 Abstract [facility] [address] [place], [place] [phone] Vivian Massey DO [address] [place], [place] [phone] Social History Tobacco Use Types Packs/Day Years [...] on filedocumented in this encounter Care Teams Supervisor Paper Products Relationship Specialty Start Date End Date Vivian Massey DO [address] [place], [place] [phone] PCP - General Family Medicine 07/27/20 documented as of this encounter
--- OUTSIDE RECORDS SUMMARY | 2024-10-14 08:04 | XMS_ITS | Clinical Summary ---
Author Organization [facility] Address [address] [address] Phone Care Team Providers Care Principal Trainer Name Role Phone Clementine Masseyfer Primary Care Provider [phone] Social History Tobacco Use Types Packs/Day Years [...] topic Medical Devices Not on file Insurance [facility] MEDICARE REPLACEMENT MEDICARE PART A & B [facility] MEDIC[facility] REPLACEMENT MEDICARE PART A & B [facility] MED[facility] REPLACEMENT MEDICARE PART A & B [facility] [address] [place] [address] [facility] MEDICARE REPLACEMENT MEDICARE PART A & B [facility] [address] [place] [address] [facility] MEDICARE REPLACEMENT MED[facility]ARE [facility] MED[facility] REPLACEMENT MEDICARE PART A & B [facility] Care Teams Principal Trainer Relationship Specialty Start Date End Date Vivian Massey DO [address] [place] [address] PCP - General Family Medicine 01/09/23 Additional Source Comments The information contained in this document represents components of the legal health record. It is not the complete legal health record.[facility]
--- OUTSIDE RECORDS SUMMARY | 2024-10-14 08:04 | XMS_ITS | Clinical Summary ---
Author Organization [facility] Address [address] [place] [address] Care Team Providers Care Mineral Ore Processing Labourer Name Role Phone Vidal Pinzon MD Primary Care Provider [phone] Medications Medication Sig Dispensed Refills Start Date [...] age to complete this topic Care Teams Mineral Ore Processing Labourer Relationship Specialty Start Date End Date Vidal Pinzon MD [address] [place] [address] PCP - General Family Medicine 02/18/20
== END 2024-10-11 08:02 | disposition home or self-care (01) ==
LOC: HO.HOSX 08:01
PROVIDERS: Visit Provider Physician Assistant
DX: S82.841D Displaced bimalleolar fracture of right lower leg, subsequent encounter for closed fracture with routine healing (principal)
CPT/HCPCS: 73610

== ENCOUNTER 2024-10-11 10:55 | Outpatient (AMB) | payer OTHER, SELFPAY ==
--- OUTSIDE RECORDS SUMMARY | 2024-10-11 11:03 | XMS_ITS | Clinical Summary ---
Author Organization [facility] Address [address] [address] Phone Care Team Providers Care Full Stack Engineer Name Role Phone Clementine Masseyfer Primary Care Provider [phone] Social History Tobacco Use Types Packs/Day Years [...] topic Medical Devices Not on file Insurance [facility] MEDICARE REPLACEMENT MEDICARE PART A & B [facility] MEDICARE REPLACEMENT MEDICARE PART A & B [facility] MEDICARE REPLACEMENT MEDICARE PART A & B [facility] [address] [place] [id number] [facility] MEDICARE REPLACEMENT MEDICARE PART A & B [place] [address] [place] [address] [facility] MEDICARE REPLACEMENT MEDICARE PART A & [facility] MEDICARE REPLACEMENT MEDICARE PART A & B [facility] Care Teams Full Stack Engineer Relationship Specialty Start Date End Date Vivian Massey DO [address] [place] [address] PCP - General Family Medicine 01/09/23 Additional Source Comments The information contained in this document represents components of the legal health record. It is not the complete legal health record.[facility]
--- OUTSIDE RECORDS SUMMARY | 2024-10-11 11:03 | XMS_ITS | Encounter Summary ---
Author Organization [employer] Address [address] [facility] [address] [place] [address] Care Team Providers Care Occupational Analyst Name Role Phone Vivian Massey DO Primary Care Provider [phone] Encounter Details Date Type Department Care Team (Late st Contact Info) Description 04/20/2022 Abstract [facility] MEDICINE [address] [place], [place] [phone] Vivian Massey DO [address] [place], [place] [phone] Social History Tobacco Use Types Packs/Day Years [...] on filedocumented in this encounter Care Teams Occupational Analyst Relationship Specialty Start Date End Date Vivian Massey DO [address] [place], [place] [phone] PCP - General Family Medicine 07/27/20 documented as of this encounter
--- OUTSIDE RECORDS SUMMARY | 2024-10-11 11:03 | XMS_ITS | Encounter Summary ---
Author Organization [facility] Address [address] [place] [address] Care Team Providers Care Home Visits Nurse Name Role Phone Vivian Massey Primary Care Provider [phone] Encounter Details Date Type Department Care Team ([facility] st Contact Info) Description 09/25/2024 Lab Requisition [facility] - Main Lab [address] [place] [address] Araceli Maya MD [address] [address] Hypokalemia Social History Tobacco Use Types Packs/Day [...] LAB CHEMISTRY METHOD 09/26/2024 9:09 AM EDT [facility] Potassium 3.6 3.5 - 5.5 mmol/L LAB CHEMISTRY METHOD 09/26/2024 9:09 AM [facility] LAB Chloride 100 96 - 110 mmol/L LAB CHEMISTRY METHOD 09/26/2024 9:09 AM [facility] LAB CO2 33(H) 21 - 32 mmol/L LAB CHEMISTRY METHOD 09/26/2024 9:09 AM [facility] Anion Gap 3 3 - 11 LAB CHEMISTRY METHOD 09/26/2024 9:09 AM [facility] LAB Glucose 76 70 - 100 mg/dL LAB CHEMISTRY METHOD 09/26/2024 9:09 AM [facility] LAB BUN 14 5 - 25 mg/dL LAB CHEMISTRY METHOD 09/26/2024 9:09 AM [facility] LAB Creatinine 0.82 0.50 - 1.10 mg/dL LAB CHEMISTRY METHOD 09/26/2024 9:09 AM [facility] LAB eGFR 74 >=60 mL/min/1. 73m2 LAB CHEMISTRY METHOD 09/26/2024 9:09 AM [facility] LAB Comment:Calculation based on the Chronic Kidney Disease Epidemiology Collaboration (CKD-EPI) equation refit without adjustment for race. BUN/Creatinine Ratio 17.1 LAB CHEMISTRY METHOD 09/26/2024 9:09 AM [facility] LAB Calcium 9.3 8.5 - 10.5 mg/dL LAB CHEMISTRY METHOD 09/26/2024 9:09 AM [facility] LAB Blood Venous blood specimen / Unknown Venipuncture / Unknown 09/26/2024 5:47 AM EDT 09/26/2024 7:40 AM EDT us Araceli Maya MD LAB BLOOD ORDERABLES Fin al Result [facility] LAB [address] [place] [address], documented in this encounter Visit Diagnoses Diagnosis Hypokalemia Hypopotassemia documented in this encounter Care Teams Home Visits Nurse Relationship Specialty Start Date End Date Vivian Massey DO [address] [place] [address] PCP - General Internal Medicine 07/21/17 documented as of this encounter
--- OUTSIDE RECORDS SUMMARY | 2024-10-11 11:04 | XMS_ITS | Clinical Summary ---
Author Organization [facility] Address [address] [place] [address] Care Team Providers Care Chest Painting Leader Name Role Phone Vidal Pinzon MD Primary Care Provider [phone] Medications Medication Sig Dispensed Refills Start Date [...] age to complete this topic Care Teams Chest Painting Leader Relationship Specialty Start Date End Date Vidal Pinzon MD [address] [facility] [address] PCP - General Family Medicine 02/18/20
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
[2024-10-11 11:25] VITALS: BMI 41.8
== END 2024-10-11 11:41 | disposition home or self-care (01) ==
LOC: HO.HOS 10:55
PROVIDERS: Visit Provider Physician Assistant
DX: Z47.89 Encounter for other orthopedic aftercare (principal); S82.842D Displaced bimalleolar fracture of left lower leg, subsequent encounter for closed fracture with routine healing; Z87.81 Personal history of (healed) traumatic fracture
CPT/HCPCS: 99024

== ENCOUNTER → 2024-10-11 10:58 | Outpatient (BNV) | payer OTHER, SELFPAY | PROVIDERS: Visit Provider Radiology Diagnostic Radiology | DX: M25.571 Pain in right ankle and joints of right foot (principal) | CPT/HCPCS: 73610 ==

== ENCOUNTER 2024-11-21 12:41 | Emergency (ER) | payer MEDICARE, MEDICAID, SELFPAY ==
[2024-11-21] VITALS (10 sets, daily range): BP systolic 102–180; BP diastolic 35–100; PULSE 79–98; RESP 18–20; TEMP 37–39.4; O2SAT 93–96; BMI 43.0
--- NOTE | ~2024-11-21 | XR_ITS ---
EXAMINATION: XR CHEST CLINICAL INFORMATION: sepsis COMPARISON: July 19, 2024 TECHNIQUE: 2 views of the chest were obtained. FINDINGS: There is a 9 mm circular density in the medial right humeral head along the anatomic neck. It is not seen on the prior x-rays. Lungs are clear. Heart size is normal. There is atherosclerotic calcification in the aortic arch. A gastric band is stable at the GE junction. XR/XR chest 2V IMPRESSION: There is a new 9 mm density projecting over the right humerus head neck junction. This could represent a sclerotic bone lesion (static disease is not ruled out) or could represent crystal deposition within subscapularis tendon. Follow-up dedicated 4 view right shoulder x-ray including an AP internal rotation view. No acute disease in the chest. Electronically signed by: Galindo Mata MD 11/21/2024 03:27 PM EDT
--- NOTE | 2024-11-21 13:21 | ED.GENADULT ---
HPI - General Adult General Chief complaint: Weakness Stated complaint: L back pain, incontinence burning x1day Time Seen by Provider: 11/21/24 13:20 Source: patient Mode of arrival: ambulatory Limitations: no limitations History of Present Illness ED Provider: Dr. Espino HPI narrative: 74-year-old female history of recent ankle fracture on the right side back in July of 2024. This was status post ORIF with the orthopedic team. This was healed on their visit on 10/11/2024, recent rehab placement for her injury presenting to ER today for evaluation of dysuria and low back pain. Patient stated that she has been having increased urinary incontinence. She was diagnosed with UTI when she was back in rehab. However this never resolved. She states she does feel on and off intermittent fever. She does complain of burning sensation when she urinates. No traumatic injury to her low back. No red flag symptoms. No urinary retention, saddle paresthesia, paresthesia down both lower extremities, inability to ambulate. Related Data Home Medications ?Medication ?Instructions ?Recorded ?Confirmed albuterol sulfate 90 mcg/actuation 2 puff PO Q4-6H PRN Wheezing 06/08/20 07/14/24 aerosol inhaler bupropion HCl 150 mg 24 hr tablet, 150 mg PO DAILY depressive disorder 06/08/20 07/14/24 extended release cholecalciferol (vitamin D3) 50 50 mcg PO DAILY 06/08/20 07/14/24 mcg (2,000 unit) capsule docusate sodium 100 mg capsule 100 mg PO BEDTIME PRN constipation 06/08/20 07/14/24 ferrous sulfate 325 mg (65 mg 325 mg PO BEDTIME 06/08/20 07/14/24 iron) tablet hydrochlorothiazide 25 mg tablet 25 mg PO DAILY blood pressure 06/08/20 07/14/24 melatonin 5 mg tablet 10 mg PO BEDTIME insomnia 06/08/20 07/14/24 montelukast 10 mg tablet 10 mg PO BEDTIME 06/08/20 07/14/24 rosuvastatin 10 mg tablet 10 mg PO BEDTIME 08/11/20 07/14/24 calcium carbonate (Calcium Antacid) 200 mg PO BID 05/24/21 07/14/24 loratadine 10 mg tablet 10 mg PO BEDTIME allergies 05/24/21 07/14/24 trazodone 100 mg tablet 100 mg PO BEDTIME 05/24/21 07/14/24 amitriptyline 10 mg tablet 1 tab PO BEDTIME 01/05/22 07/14/24 fluticasone propionate 50 2 spray intranasal DAILY PRN 01/05/22 07/14/24 mcg/actuation nasal Allergy Symptoms spray,suspension desmopressin 0.2 mg tablet 0.6 mg PO BEDTIME 07/14/24 07/14/24 econazole nitrate 1 % topical cream 1 appl topical DAILY 07/14/24 07/14/24 tirzepatide 2.5 mg/0.5 mL 2.5 mg subcut TU@0900 07/14/24 07/14/24 subcutaneous pen injector (Mounjaro) acetaminophen 650 mg 650 mg PO Q8H PRN mild pain 08/02/24 tablet,extended release baclofen 10 mg tablet 10 mg PO TID PRN muscle spasm 08/02/24 enoxaparin 30 mg/0.3 mL 30 mg subcut DAILY 08/02/24 subcutaneous syringe (Lovenox) Previous Rx's ?Medication ?Instructions ?Recorded fluticasone furoate 200 1 inh inhalation DAILY 30 days #1 04/14/21 mcg-vilanterol 25 mcg/dose ea inhalation powder (Breo Ellipta) ciprofloxacin HCl 500 mg tablet 500 mg PO Q12H 7 days #14 tabs 11/21/24 Allergies Allergy/AdvReac Type Severity Reaction Status Date / Time prednisone (PREDNISONE) Allergy Severe AGITATION Verified 11/21/24 13:33 Review of Systems Review of Systems: Pertinent review of systems as mentioned in HPI. All other system otherwise negative. [facility] Past Medical History [facility] Narrative: Medical history as mentioned in HPI Medical History Anxiety Asthma Constipation by delayed colonic transit DDD (degenerative disc disease) Depression Dyslipidemia Essential hypertension Fall History of anemia History of broken leg Hypovitaminosis D Insomnia Iron deficiency anemia Lumbar stenosis Moderate asthma Osteoarthritis of right knee Osteoporosis Renal calculi Thoracic compression fracture Urinary incontinence Surgical History H/O: section History of bladder suspension procedure History of lithotripsy History of repair of rectocele History of tonsillectomy Hx of breast reduction, elective Hx of laparoscopic gastric banding Status post open reduction with internal fixation (ORIF) of fracture of ankle Family History Family History Father No problems noted. Mother Breast cancer Sister Diabetes Heart attack Maternal Grandmother Brain cancer Social History Social History Household Members: None Household Members Other:: 1 Housing: Apartment Are you a primary social worker palliative care to a significant other at home: No Do you presently have visiting nurse or other home services: No Alcohol intake: never Patient Tobacco Use Status: Former Tobacco user Tobacco use type: Cigarette Cigarette Packs Per Day: 1 Second Hand Smoke Exposure: No Advance Directives Date on File: 01/14/22 service: No Current occupational status: unemployed Physical Exam ED Exam Exam: General: Pleasant, no distress, interacting appropriately Head: Normacephalic, atraumatic ENT: oral mucosa moist, neck supple, no tracheal deviation Cardiovascular: regular rate, regular rhythm, no murmurs, rubbing, gallops Respiratory: CTAB, no wheeze, rales, rhonchi Gastrointestinal: Soft, non distended, non tender, non guarding Extremities: Boot intact on the right lower extremity, low back pain on palpation in the paraspinal area bilaterally. Neurological: Awake and alert, no facial droop noted Skin: Warm and dry Psychiatric: Appropriate mood and thoughts Vital Signs: Vital Signs - 24 hr 11/21/24 13:30 11/21/24 13:34 11/21/24 14:33 Temperature 99.8 F 99.8 F 102.9 F H Pulse Rate 92 92 Respiratory Rate 18 18 Blood Pressure Pulse Oximetry 93 93 Oxygen Delivery Method Room Air Room Air 11/21/24 14:58 11/21/24 15:40 11/21/24 17:59 Temperature 99.5 F 98.6 F Pulse Rate 90 85 79 Respiratory Rate 18 20 20 Blood Pressure 138/52 L 102/35 L 107/47 L Pulse Oximetry 96 94 95 Oxygen Delivery Method Room Air Room Air Room Air 11/21/24 18:20 Temperature Pulse Rate 82 Respiratory Rate 19 Blood Pressure 117/54 L Pulse Oximetry 95 Oxygen Delivery Method Room Air BMI result Body Mass Index 43.0 Medications Administered Discontinued Medications Generic Name Dose Route Start Last Admin Trade Name Freq PRN Reason Stop Dose Admin Acetaminophen 975 mg 11/21/24 14:34 11/21/24 14:43 Acetaminophen 325 Mg Tablet PO 11/21/24 14:35 975 mg ONCE ONE Administration Sodium Chloride 1,000 mls @ 999 mls/hr 11/21/24 15:15 11/21/24 18:15 Ns IV 11/21/24 16:15 Infused .Q1H1M KUMAR Infusion Potassium Bicarbonate 25 meq 11/21/24 15:38 11/21/24 18:20 Potassium Bicarbonate/Cit Ac 25 Meq Tablet.Eff PO 11/21/24 15:39 25 meq ONCE ONE Administration Medical Decision Making Medical Decision Making [facility] Narrative: 74-year-old female history of recent right ankle fracture, pulmonary nodules, spinal stenosis, urinary incontinence presented hospital today for evaluation of dysuria and low back pain. Patient does feel slightly warm on exam. We will obtain screening sepsis lab work for the patient including a CBC CMP lactic acid and blood culture. Focused sepsis exam was performed. She does appear to be well does not appear to be toxic. However we will obtain a UA to rule out UTI. I suspect her low back pain may be secondary to a possible UTI. Low suspicion for cauda equina for the patient. Patient lab work did show slight leukocytosis of 11.0. Anemia at 11.9, patient lactic acid is not elevated. Slight hypokalemia at 3.2. Unable to obtain UA from patient however she is symptomatic. After shared decision-making with the patient. We agreed to send her home with some antibiotic. She has already received a dose IV ceftriaxone while here. Patient appears to be stable. We will plan to discharge patient. You will have her follow up with her primary care doctor. Differential Diagnosis Differential Diagnoses: The differential diagnosis associated with the presentation includes Cauda equina, pyelonephritis, UTI, lumbar strain, chronic back pain Lab Data [facility] Lab Attestation statement: I reviewed the patient's lab results. 11/21/24 14:00 11/21/24 14:00 Labs: Lab Results 11/21/24 Range/Units 14:00 WBC 11.0 H (4.8-10.8) X10*3/uL RBC 3.75 L (4.20-5.50) X10*6/uL Hgb 11.9 L (12.0-16.0) g/dl Hct 34.6 L (37.0-47.0) % MCV 92.3 (80.0-98.0) fL MCH 31.7 (27.0-33.0) pg MCHC 34.4 (31.0-35.0) g/dl RDW 14.3 (11.0-16.0) % Plt Count 260 (160-400) X10*3/uL MPV 8.9 L (9.4-12.3) fL Immature Gran % (Auto) 0.5 H (0.0-0.4) % Neut % (Auto) 85.2 H (45-73) % Lymph % (Auto) 7.3 L (20-40) % Foster % (Auto) 6.9 (2-11) % Eos % (Auto) 0.0 (0-4) % Baso % (Auto) 0.1 (0-2) % Lymph # (Auto) 0.8 L (1.2-4.9) X10*3/uL Foster # (Auto) 0.8 (0.1-1.2) X10*3/uL Eos # (Auto) 0.0 (0.0-0.4) X10*3/uL Baso # (Auto) 0.0 (0.0-0.2) X10*3/uL Abs Immat Gran (auto) 0.05 H (0.00-0.03) X10*3/uL Absolute Neuts (auto) 9.4 H (2.0-8.3) x10*3/uL Absolute Nucleated RBC 0.000 (0.0-0.012) X10*3/uL Nucleated RBC % (auto) 0.0 (0.0-0.2) /100WBC Sodium 134 L (135-145) mmol/L Potassium 3.2 L (3.3-5.1) mmol/L Chloride 94 L (96-108) mmol/L Carbon Dioxide 31 H (22-29) mmol/L Anion Gap 12 (12-20) BUN 14 (9-16) mg/dL Creatinine 1.00 (0.5-1.4) mg/dL Estim Creat Clear Calc 48.7 Estimated GFR 54 Random Glucose 104 (60-115) mg/dL Lactic Acid 1.2 (0.5-2.0) mmol/L Calcium 8.9 (8.4-10.2) mg/dL Total Bilirubin 0.6 (0.0-1.0) mg/dL AST 19 (5-31) U/L ALT 6 (0-31) U/L Alkaline Phosphatase 81 (39-117) U/L Total Protein 7.0 (6.5-8.0) g/dL Albumin 4.1 (3.5-5.0) g/dL Discharge Plan Discharge Clinical Impression: Acute UTI Patient Disposition: Home, Self-Care Additional Instructions: Follow up with your primary care doctor for suspected UTI to ensure that you are feelign better. Prescriptions: New ciprofloxacin HCl 500 mg tablet 500 mg PO Q12H 7 Days Qty: 14 0RF No Action amitriptyline 10 mg tablet 1 tab PO BEDTIME fluticasone propionate 50 mcg/actuation spray,suspension 2 spray intranasal DAILY PRN (Reason: Allergy Symptoms) econazole nitrate 1 % cream 1 appl topical DAILY Mounjaro 2.5 mg/0.5 mL pen injector 2.5 mg subcut TU@0900 desmopressin 0.2 mg tablet 0.6 mg PO BEDTIME albuterol sulfate 90 mcg/actuation HFA aerosol inhaler 2 puff PO Q4-6H PRN (Reason: Wheezing) ferrous sulfate 325 mg (65 mg iron) tablet 325 mg PO BEDTIME hydrochlorothiazide 25 mg tablet 25 mg PO DAILY montelukast 10 mg tablet 10 mg PO BEDTIME melatonin 5 mg tablet 10 mg PO BEDTIME cholecalciferol (vitamin D3) 50 mcg (2,000 unit) capsule 50 mcg PO DAILY bupropion HCl 150 mg tablet extended release 24 hr 150 mg PO DAILY docusate sodium 100 mg capsule 100 mg PO BEDTIME PRN (Reason: constipation) rosuvastatin 10 mg tablet 10 mg PO BEDTIME loratadine 10 mg tablet 10 mg PO BEDTIME trazodone 100 mg tablet 100 mg PO BEDTIME calcium carbonate [Calcium Antacid] 200 mg calcium (500 mg) tablet,chewable 200 mg PO BID Breo Ellipta 200-25 mcg/dose blister with device 1 inh inhalation DAILY 30 Days Qty: 1 6RF acetaminophen 650 mg tablet extended release 650 mg PO Q8H PRN (Reason: mild pain) baclofen 10 mg tablet 10 mg PO TID PRN (Reason: muscle spasm) enoxaparin [Lovenox] 30 mg/0.3 mL syringe 30 mg subcut DAILY Print Language: Afghan
--- NOTE | 2024-11-21 13:36 | PC.NURSE ---
74 F presents to ED d/t difficulty ambulating, weakness, lower back pain, urinary incontinence, and painful urination. Pt recently was at rehab for R leg which is in a boot d/t R ankle fracture, denies pain at this time. CSMs present. Pt sts she feels weak, cannot ambulate but normally ambulates at baseline. RR even and unlabored, denies CP or SOB. Pt c/o lower back pain, denies any recent falls or injuries.
[2024-11-21 14:07] LABS: MANUAL DIFF FLAG NO
[2024-11-21 14:09] LABS: Hematocrit 34.6 % (37.0-47.0); Hemoglobin 11.9 g/dl (12.0-16.0); Imm Gran Abs Auto 0.05 X10*3/uL (0.00-0.03); Imm Gran Pct Auto 0.5 % (0.0-0.4); Lymphocytes Absolute Auto 0.8 X10*3/uL (1.2-4.9); Mean Corpuscular HGB Conc 34.4 g/dl (31.0-35.0); Mean Corpuscular Hemoglobin 31.7 pg (27.0-33.0); Mean Corpuscular Volume 92.3 fL (80.0-98.0); NRBC Abs Auto 0.000 X10*3/uL (0.0-0.012); NRBC Pct Auto 0.0 /100WBC (0.0-0.2); Platelet Count 260 X10*3/uL (160-400); Red Blood Count 3.75 X10*6/uL (4.20-5.50); White Blood Count 11.0 X10*3/uL (4.8-10.8)
[2024-11-21 14:25] LABS: Alanine Aminotransferase 6 U/L (0-31); Albumin Level 4.1 g/dL (3.5-5.0); Alkaline Phosphatase 81 U/L (39-117); Anion Gap 12 (12-20); Aspartate Amino Transferase 19 U/L (5-31); Blood Urea Nitrogen 14 mg/dL (9-16); Calcium 8.9 mg/dL (8.4-10.2); Carbon Dioxide 31 mmol/L (22-29); Chloride 94 mmol/L (96-108); Creatinine Clr Calc Pharmacy 48.7; Estimated Glomerular Filt Rate 54; Potassium 3.2 mmol/L (3.3-5.1); Sodium 134 mmol/L (135-145); Total Protein 7.0 g/dL (6.5-8.0)
--- NOTE | 2024-11-21 14:30 | PC.NURSE ---
attempted to do a straight cath x2 but unsuccessful unable to advance the cath
--- NOTE | 2024-11-21 14:50 | PC.NURSE ---
Provided report to WALE [place]. pt moved to room in ED9
[2024-11-21] MEDS: Potassium Bicarbonate/Cit AC 25 MEQ TABLET.EFF PO (18:20)
--- OUTSIDE RECORDS SUMMARY | 2024-11-21 18:37 | XMS_ITS | Encounter Summary ---
Author Organization [employer] Address [address] [facility] [address] [place] [address] Care Team Providers Care Business Analytics Intern Name Role Phone Vivian Massey DO Primary Care Provider [phone] Encounter Details Date Type Department Care Team (Late st Contact Info) Description 04/20/2022 Abstract [facility] MEDICINE [address] [place] [phone] Vivian Massey DO [address] [place], [place] [phone] Social History Tobacco Use Types Packs/Day Years [...] Care Team (Late st Contact Info) Description 11/26/2024 10:45 AM EDT Office Visit [facility] [address] [place], [place] [phone] Clara Iverson MD [address] [place], [place] [phone] documented as of this encounter Visit Diagnoses Not on filedocumented in this encounter Care Teams Business Analytics Intern Relationship Specialty Start Date End Date Vivian Massey DO [address] [place] [address] PCP - General Family Medicine 07/27/20 documented as of this encounter
--- OUTSIDE RECORDS SUMMARY | 2024-11-21 18:37 | XMS_ITS | Clinical Summary ---
Author Organization [facility] Address [address] [address] Phone Care Team Providers Care Drill Punch Operator Name Role Phone Clementine Masseyfer Primary Care Provider [phone] Social History Tobacco Use Types Packs/Day Years [...] VACCINE (1 - 1-dose 75+ series) 2023 INFLUENZA VACCINE (#1) 2024 COVID-19 VACCINE (2023-2 5 season) 2024 HEPATITIS A VACCINES Aged Out No long [...] topic Medical Devices Not on file Insurance [facility] MEDICARE REPLACEMENT MEDICARE PART A & B [facility] MEDICARE REPLACEMENT MEDICARE PART A & B [facility] MEDICARE REPLACEMENT MEDICARE PART A & B [facility] [address] [place] [address] [facility] MEDICARE REPLACEMENT MED[facility]ARE [facility] [address] [place] [address] [facility] MEDICARE REPLACEMENT MEDICARE [facility] A & [facility] MEDICARE REPLACEMENT MEDICARE PART A & B Member Subscriber Plan / Payer (Ef fective 2013-Present) Name:Jennifer Whitehead Member ID:[id number] Relation to Subscriber:Self Name:Jennifer Whitehead Subscriber ID:[id number] Payer ID:[id number] Group ID:Not on file Type:Medicare Address: [facility] Initiate Systems [facility] [address] [place] [address] [facility] Care Teams Drill Punch Operator Relationship Specialty Start Date End Date Vivian Massey DO [address] [place] [id number] PCP - General Family Medicine 01/09/23 Additional Source Comments The information contained in this document represents components of the legal health record. It is not the complete legal health record.[facility]
--- OUTSIDE RECORDS SUMMARY | 2024-11-21 18:38 | XMS_ITS | Encounter Summary ---
Author Organization [employer] Address [address] [facility] [address] [place] [address] Care Team Providers Care Mail List Processor Name Role Phone Vivian Massey DO Primary Care Provider + [phone] Reason for Visit * Reason Onset Date Comments Durable Medical Equipment 02/14/2023 Encounter Details Date Type Department Care Team ([facility] st Contact Info) Description 02/14/2023 Telephone [facility] MEDICINE [address] [place] [address] Vivian Massey DO [address], [place] [id number] Durable Medical Equipment Social History Tobacco Use Types Packs/Day Years Used Date Smoking Tobacco: Former Cigarettes Smokeless Tobacco: Former Comments:25 years ago Alcohol Use Standard Drinks/Week Comments Never 0 (1 standard drink = 0.6 oz pur e alcohol) Depression Answer Date Recorded Patient Health Questionnaire-9 Score 9 09/27/2022 Housing Stability Answer Date Recorded What is your housing situation today? I have aniket alvarado 12/27/[address] you li ve. Do you have problems with any of the following? None of the above 12/27/2022 Food Insecurity Answer Date Recorded Within the past 12 months, y ou worried that your food would run out before you got money to buy more: Never True 12/27/2022 Within the past 12 months,th e food you bought just didn't last and you didn't have enough money to get more: Never True Transportation Answer Date Recorded In the past 12 months, has l ack of transportation kept you from medical appts, meetings, work or from getting things needed for daily living? No 12/27/2022 Utilities Answer Date Recorded In the past 12 months, has t he electric, gas, oil or water company threatened to shut off services in your home? No 12/27/2022 Depression Answer Date Recorded Patient Health Questionnaire-2 Score 4 09/27/2022 Comments Unknown Sex and Gender Information Value Date Recorded Sex Assigned at Female 01/10/2022 10:21 AM EDT Legal Sex Female 10:21 AM EDT Gender Identity Female 01/10/2022 10:21 AM EDT Sexual Orientation Straight 01/10/2022 10 :21 AM EDT documented as of this encounter Miscellaneous Notes * Telephone Encounter - Eloina Raymond - 03/24/2023 1:22 PM EST Order for DME has been generated and placed on provider desk for review and signature. * Telephone Encounter - Farrah Kebede - 02/14/2023 10:44 AM EST Tc from pt requesting DME -[place] documented in this encounter Plan of Treatment Upcoming Encounters Date Type Department Care Team (Late st Contact Info) Description 11/26/2024 10:45 AM EDT Office Visit [facility] MEDICINE [address] [place] [address] Clara Iverson MD [address] [place] [address] documented as of this encounter Visit Diagnoses Not on filedocumented in this encounter Additional Health Concerns Assessment Noted Time PHQ-9 Depression Total Score: 9 09/28/19 23 11:33 AM EDT documented as of this encounter Care Teams Mail List Processor Relationship Specialty Start Date End Date Vivian Massey DO [address] [place] [address] PCP - General Family Medicine 5/17/21 documented as of this encounter
--- OUTSIDE RECORDS SUMMARY | 2024-11-21 18:38 | XMS_ITS | Clinical Summary ---
Author Organization [facility] Address [address] [place] [address] Care Team Providers Care Geek Squad Manager Name Role Phone Vidal Pinzon MD Primary Care Provider [phone] Medications Medication Sig Dispensed Refills Start Date [...] age to complete this topic Care Teams Geek Squad Manager Relationship Specialty Start Date End Date Vidal Pinzon MD [address] [facility] [place] [address] PCP - General Family Medicine 02/18/20
--- OUTSIDE RECORDS SUMMARY | 2024-11-21 18:38 | XMS_ITS | Clinical Summary ---
Author Organization [employer] Address [address] [facility] [address] [place] [address] Care Team Providers Care Manufacturer Name Role Phone Shilpa Vivian Primary Care Provider + [phone] Allergies Active Allergy Reactions Criticality Noted Date Comments Prednisone 04/07/2010 Other reaction(s): psychosis Medications * This document contains information received from the source organization and may not represent a complete record from that organization. hydrOXYzine pamoate (Vistaril) 25 MG capsule TAKE 1 CAPSULE BY MOUTH EVERY 6 HOURS NEEDED FOR ANXIETY 022 Active albuterol (2.5 MG/3ML) 0.083% nebulizer solutionIndicat ions:Uncomplica ruben asthma, unspecified asthma severity, unspecified whether persistent inhale 3 milliliter by nebulization route every 4 hours as needed as needed for cough, wheeze, sob 90 mL 1 023 Active hydrocortisone 2.5 % cream Apply topically if needed in the morning and at bedtime (groin rash). 28 g 2 024 Active baclofen (Lioresal) 10 MG tablet TAKE 1 TABLET BY MOUTH THREE TIMES DAILY NEEDED FOR MUSCLE SPASMS 90 tablet 3 024 Active docusate sodium (Colace) 100 MG capsule TAKE 1 CAPSULE BY MOUTH AT BEDTIME NEEDED FOR CONSTIPATION 90 capsule 3 024 Active loratadine (Claritin) 10 MG tablet TAKE 1 TABLET BY MOUTH AT BEDTIME FOR ALLERGY 90 tablet 3 024 Active melatonin 5 MG tablet TAKE 2 TABLETS BY MOUTH EVERY DAY AT BEDTIME 180 tablet 3 024 Active fluticasone (Flonase) 50 MCG/ACT nasal sprayIndication s:Seasonal allergic rhinitis, unspecified trigger INHALE 2 SPRAYS IN EACH NOSTRIL ONCE DAILY NEEDED 48 g 024 Active acetaminophen (Tylenol 8 Hour) 650 MG ER tabletIndicatio ns:Neck pain Take 1 tablet (650 mg) by mouth every 8 (eight) hours if needed for mild pain. Do not crush, chew, or split. 90 tablet 3 Active Diclofenac Sodium 1 % gel APPLY 2 GRAMS TO AFFECTED AREA(S) FOUR TIMES DAILY NEEDED FOR PAIN 150 g 3 024 Active D3 Super Strength 50 MCG (2000 UT) capsule TAKE 1 CAPSULE BY MOUTH EVERY MORNING 90 capsule 3 024 Active desmopressin (DDAVP) 0.2 MG tablet TAKE 3 TABLETS BY MOUTH AT BEDTIME 90 tablet 11 024 Active hydroCHLOROthia zide (HYDRODiuril) 25 MG tabletIndicatio ns:Essential hypertension TAKE 1 TABLET BY MOUTH EVERY MORNING 30 tablet 11 024 Active rosuvastatin (Crestor) 10 MG tablet TAKE 1 TABLET BY MOUTH AT BEDTIME 30 tablet 11 024 Active econazole nitrate 1 % creamIndication s:Intertrigo APPLY TOPICALLY TO THE AFFECTED AREA(S) EVERY DAY 30 g 2 024 Active Breo Ellipta 200-25 MCG/ACT aerosol powder INHALE 1 PUFF BY MOUTH EVERY DAY AT THE SAME TIME 60 each 3 025 Active Ferrous Sulfate (iron) 325 (65 Fe) MG tablet TAKE 1 TABLET BY MOUTH AT BEDTIME 90 tablet 3 025 Active buPROPion XL (Wellbutrin XL) 150 MG 24 hr tablet TAKE 1 TABLET BY MOUTH EVERY MORNING 30 tablet 3 025 Active amitriptyline (Elavil) 10 MG tablet TAKE 1 TABLET BY MOUTH AT BEDTIME 30 tablet 2 025 Active Calcium Antacid 500 MG chewable tabletIndicatio ns:Osteoporosis , unspecified osteoporosis type, unspecified pathological fracture presence TAKE 1 TABLET BY MOUTH TWICE DAILY IN THE MORNING AND IN THE EVENING CHEW 60 tablet 5 025 Active montelukast (Singulair) 10 MG tablet TAKE 1 TABLET BY MOUTH EVERY EVENING 30 tablet 5 025 Active traZODone (Desyrel) 100 MG tabletIndicatio ns:Major depression, recurrent, chronic (CMS/HCC) TAKE 1 TABLET BY MOUTH AT BEDTIME 30 tablet 5 025 Active Mounjaro 5 MG/0.5ML solution auto-injector Inject 5 mg under the skin 1 (one) time per week. 025 Active buPROPion XL (Wellbutrin XL) 300 MG 24 hr tablet Take 1 tablet (300 mg) by mouth in the morning. Do not crush, chew, or split. 30 tablet 3 023 2024 Discontinued(M ed list cleanup (will not trigger notification to Pharmacy)) Ozempic, 0.25 or 0.5 MG/DOSE, 2 MG/3ML solution pen-injector INJECT 0.25 MG SUBCUTANEOUSLY EVERY 7 DAYS IN THE ABDOMEN, THIGHS OR UPPER ARM. ROTATE INJECTION SITES. 024 2024 Discontinued(M ed list cleanup (will not trigger notification to Pharmacy)) Active Problems Problem Noted Date Diagnosed Date Allergic rhinitis 12/04/2023 Chronic bilateral low back pain without sciatica 07/06/2023 Assessment & Plan (07/06/2023 3:07 PM EDT): With intermittent flaring -MRI L-spine with T11 vertebral body fracture, scoliosis w/ multilevel severe spondyloarthropathy, mulitlevel central canal stenosis, and multilevel severe neural foraminal stenosis SEP 2021 -L-spine XR with moderate multilevel degenerative changes DEC 2018 -encouraged standing doses of tylenol -cont baclofen to help w/ mm spasm -cont tramadol prn -cont gabapentin TID -cont diclofenac gel prn -will send rx for shower chair as requested -f/u with PM prn -advised contact [facility] if sx worsen Healthcare maintenance 07/06/2023 Assessment & Plan (07/06/2023 3:08 PM EDT): -s/p flu vaccine JAN 2023 -she declines COVID vaccine -encouraged RSV vaccine -s/p Tdap SEP 2016 -s/p pneumovax NOV 2014 -s/p prevnar APR 2016 -s/p PCV20 JAN 2023 -s/p zoster vaccine SEP 2016 -encouraged Shingrix vaccine -Hep A immune -mammo BIRADS 12 MAY 2021, advised keep repeat as scheduled -DEXA with osteoporosis NOV 2021 -pap wnl/HPV negative APR 2015 -iFOBT negative OCT 2018->re-referred for cologuard testing -A1c 5.1% SEP 2022->repeat prior to next visit -STI/HIV screen negative FEB 2018 Essential hypertension 05/30/2022 Assessment & Plan (07/06/2023 3:03 PM EDT): BP controlled -cont HCTZ daily -Cr/GFR stable with mild urine microalbumin SEP 2022->repeat prior to next visit -there is EKG in chart -s/p optho eval JUN 2022 for annual f/u at [facility], review next visit S/P total knee replacement, right 03/03/2022 History of COVID-19 02/17/2022 Hyperlipidemia 02/17/2022 Assessment & Plan (07/06/2023 3:03 PM EDT): LDL at goal SEP 2022 -cont crestor nightly -check lipids prior to next visit Multiple lung nodules 02/17/2022 Assessment & Plan (07/06/2023 3:05 PM EDT): -CT chest w/ resolution of multiple pulmonary nodules and stable EDUARDO nodule DEC 2021 -strongly advised schedule f/u with pulm Mild persistent asthma 02/25/2015 Assessment & Plan (07/06/2023 3:05 PM EDT): -PFTs with mild bronchial asthma OCT 2016 -cont breo as per pulm -cont singulair daily -cont albuterol MDI as needed -strongly advised schedule f/u with pulm Obesity 02/25/2015 Osteoarthritis 02/25/2015 Osteoporosis 02/25/2015 Assessment & Plan (07/06/2023 3:07 PM EDT): s/p fosamax tx [id number] with subsequent vertebral fracture -DEXA with osteoporosis NOV 2021 -strongly advised schedule eval with endo, contact info given Major depression, recurrent, chronic 02/25/2015 Assessment & Plan (07/06/2023 3:05 PM EDT): With anxiety -she denies any current SI/HI -she has the number for crisis and contracts for safety -cont wellbutrin daily -cont trazodone nightly with melatonin as needed -cont vistaril prn acute anxiety -f/u with clinician as scheduled Urinary incontinence 02/25/2015 Anemia 12/26/2014 Assessment & Plan (07/06/2023 3:04 PM EDT): Hgb nml SEP 2022 -iron, ferritin, and B12/folate nml SEP 2022 -cont MVI daily -re-referred for cologuard testing Generalized anxiety disorder 12/26/2014 Assessment & Plan (01/22/2024 12:01 PM EST): During IBH Consult Jennifer presenting with excessive worry/anxiety, difficulty controlling worry, anxiety/worry associated to restlessness and/or feeling keyed-up/On edge , easily fatigued , difficulty concentrating and/or mind going blank , irritability, muscle tension , and sleep disturbance difficulty falling asleep and difficulty staying asleep , Fear , and sense of dread ; for a period of 18+ mo, for most or all symptoms in the context of family issues, financial concern, illness or family illness, and housing. Jennifer reported her symptoms are still present. She is able to manage by taking her medication daily and utilizing coping skills. Family dynamics with her adult children continues to be a trigger. Pt was self-referred to [facility] in [place], declined OP referral. clinician engaged patient with active/reflective listening and provided a safe space for patient to share her emotions and concerns. Reviewed and assessed for risk, current stressors and protective factors using open-ended questions. clinician will follow-up during next medical appointment. Assessment & Plan (12/11/2023 9:47 AM EDT): During IBH Consult Jennifer presenting with excessive worry/anxiety, difficulty controlling worry, anxiety/worry associated to restlessness and/or feeling keyed-up/On edge , easily fatigued , difficulty concentrating and/or mind going blank , irritability, and sleep disturbance difficulty falling asleep, Fear , and sense of dread ; for a period of 18+ mo, for most or all symptoms in the context of family issues and financial concern. Jennifer carries a diagnosis for MDD per her medical chart. Today she presented with anxiety symptoms that have been increasing over the last months. Triggers associated with complicated family dynamics with her older children. Her medical condition has been worsening and this is also a reason for presentation of sxs. Currently on medication to treat anxiety (See PCP note). clinician engaged patient with active/reflective listening and provided a safe space for patient to share her emotions and concerns. Reviewed and assessed for risk, current stressors and protective factors using open-ended questions. Pt will be referred to OP individual therapy due to severity of sxs. She was provided with [facility] information, pt declined same-day referrals. clinician will follow-up during next medical appointment. 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 06/20/2022 09/27/2022 Hypertensive disorder 02/17/20222022 Anterior knee pain 08/14/2017 Encounters Date Type Department Care Team Description 11/21/2024 Orders Only [facility] External Provider, [facility] 11/07/[address] [address] Stephanie Mahajan MD No Show 11/07/[address] [address] Vivian Massey DO Appointment Request 10/25/[address] [address] Vivian Massey DO Verbal order 10/24/2024 Patient Outreach [address] [address] Vivian Massey DO Transition Of Care (Tcm) (HDF- Scheduled (direct)) from Last 3 Months Immunizations Immunization Administration Dates Next Due Influenza High-dose Quadriva lent Preservative Free 02/09/2023,01/04/2022,12/04/2019 Influenza injectable quadriv alent IIV4 with preservative 12/09/2016,11/25/2014 Influenza injectable quadriv alent preservative free 2021,12/20/2018,04/28/2016 Influenza, High Dose Seasona l, Preservative Free 12/04/2023,12/13/2017 Influenza, IIV3, injectable 01/22/2013,0 12/07/2010,12/11/2008,01/07 Moderna Covid-19 Vaccine 12+ 07/13/2020,06/16/19 21 Pneumococcal Conjugate PCV 13 04/28/2016 Pneumococcal Conjugate PCV 20 02/09/2023 Pneumococcal Polysaccharide PPSV23 11/11/2016,,04/02/2013 Tdap 09/29/2016,10/31/2006 Zoster, live 09/29/2016 Social History Tobacco Use Types Packs/Day Years Used Date Smoking Tobacco: Former Cigarettes Smokeless Tobacco: Former Tobacco Cessation:Counseling Given: Not Answered Comments:25 years ago Alcohol Use Standard Drinks/Week Comments Never 0 (1 standard drink = 0.6 oz pur e alcohol) Depression Answer Date Recorded Patient Health Questionnaire-9 Score 10 12/11/2023 Patient Health Questionnaire-9 Score 10 12/11/2023 Last PHQ-9: Questionnaire Data Not on file 0 12/11/2023 Housing Stability Answer Date Recorded What is your housing situation today? I have housing today, but I am worried about losing housing in the future 07/06/[address] you li ve. Do you have problems with any of the following? None of the above 07/06/2023 Food Insecurity Answer Date Recorded Within the past 12 months, y ou worried that your food would run out before you got money to buy more: Never True 07/06/2023 Within the past 12 months,th e food you bought just didn't last and you didn't have enough money to get more: Never True Transportation Answer Date Recorded In the past 12 months, has l ack of transportation kept you from medical appts, meetings, work or from getting things needed for daily living? No 07/06/2023 Utilities Answer Date Recorded In the past 12 months, has t he electric, gas, oil or water company threatened to shut off services in your home? No 07/06/2023 Depression Answer Date Recorded Patient Health Questionnaire-2 Score 1 12/11/2023 Comments Unknown Sex and Gender Information Value Date Recorded Sex Assigned at Female 01/10/2022 10:21 AM EDT Legal Sex Female 10:21 AM EDT Gender Identity Female 01/10/2022 10:21 AM EDT Sexual Orientation Straight 01/10/2022 10 :21 AM EDT Last Filed Vital Signs Vital Sign Reading Time Taken Comments Blood Pressure 146/67 01/11/2024 11:52 AM EDT Pulse 86 01/11/2024 11:52 AM EDT Temperature 36.4 C (97.5 F) 01/11/2024 11:52 AM EDT Respiratory Rate 17 01/11/2024 11:52 AM EDT Oxygen Saturation 96% 10/13/2023 11:30 AM EDT Inhaled Oxygen Concentration - - Weight 95.3 kg (210 lb) 01/11/2024 11:52 AM EDT Height 149.9 cm (4' 11 ) 01/11/2024 11:52 AM EDT Body Mass Index 42.41 01/11/2024 11:52 AM EDT Plan of Treatment Upcoming Encounters Date Type Department Care Team (Late st Contact Info) Description 11/26/2024 10:45 AM EDT Office Visit [facility] MEDICINE [address] [place] [address] Clara Iverson MD [address] [place] [address] Health Maintenance Due Date Last Done Comments Alcohol/Substance Use Screening 1962 Hepatitis C Screening 1966 Zoster Vaccines (2 of 3) 11/24/2016 09/29/2016 RSV Patients and Patients Aged 60 years or older (1 - 1-dose 75+ series) 2023 Depression Monitoring 06/09/2024 12/11/2023, 024 SDOH Screening 07/05/2024 07/06/2023 COVID-19 Vaccine ( season) 2024 07/13/2020, 06/15/2020 Influenza Vaccine (#1) 2024 , 02/09/2023, 01/04/2022, Additional history exists Tobacco Screening 01/10/2025 01/11/2024 DTaP/Tdap/Td Vaccines (3 - Td or Tdap) 09/29/2026 09/29/2016, 10/31/2006 Lipid Panel 07/05/2028 07/06/2023, 09/10, 2021, Additional history exists Pneumococcal Vaccine: 50+ Years Completed 02/09/2023, 11/11/2016, 04/28/2016, Additional history exists HIB Vaccines Aged Out No longer eligi ble based on patient's age to complete this topic HPV Vaccines Aged Out No longer eligi ble based on patient's age to complete this topic Hepatitis A Vaccines Aged Out No long er eligible based on patient's age to complete this topic Hepatitis B Vaccines Aged Out No long er eligible based on patient's age to complete this topic IPV Vaccines Aged Out No longer eligi ble based on patient's age to complete this topic Meningococcal B Vaccine Aged Out No l onger eligible based on patient's age to complete this topic Meningococcal Vaccine Aged Out No esteban arsenio eligible based on patient's age to complete this topic RSV under 20 months Aged Out No longe r eligible based on patient's age to complete this topic Rotavirus Vaccines Aged Out No longer eligible based on patient's age to complete this topic Procedures Procedure Name Priority Date/Time Associated Diagnosis Comments XR CHEST 2 VIEWS Routine 11/21/2024 3:11 PM EDT LIPID PANEL, STANDARD Routine 07/06/2023 11:26 AM EDT Essential hypertension Other hyperlipidemia Anemia, unspecified type Major depression, recurrent, chronic (CMS/HCC) Mild persistent asthma without complication Pulmonary nodule Chronic bilateral low back pain without sciatica Osteoporosis, unspecified osteoporosis type, unspecified pathological fracture presence Hydronephrosis, unspecified hydronephrosis type Healthcare maintenance from Last 3 Months or Most Recently Relevant to Health Maintenance Results * XR Chest 2 Views (11/21/2024 3:11 PM EDT) Anatomical Region Laterality Modality Chest Radiographic Elma ging 11/21/2024 3:11 PM EDT Narrative 11/21/2024 3:30 PM EDT [address] [address] XRay Report Signed Patient: Jennifer Whitehead I MR#: [id number] 4 : 1950 Acct:[id number] Age/Sex: 74 / F ADM Date: 11/21/24 Loc: HO.ED Attending Dr: Ordering Physician: Christine Espino DO Date of Service: 11/21/24 Procedure(s): XR chest 2V Accession Number(s): [id number] cc: Christine Espino DO; Vivian Massey DO Reason for Exam: sepsis EXAMINATION: XR CHEST CLINICAL INFORMATION: sepsis COMPARISON: July 19, 2024 TECHNIQUE: 2 views of the chest were obtained. FINDINGS: There is a 9 mm circular density in the medial right humeral head along the anatomic neck. It is not seen on the prior x-rays. Lungs are clear. Heart size is normal. There is atherosclerotic calcification in the aortic arch. A gastric band is stable at the GE junction. XR/XR chest 2V IMPRESSION: There is a new 9 mm density projecting over the right humerus head neck junction. This could represent a sclerotic bone lesion (static disease is not ruled out) or could represent crystal deposition within subscapularis tendon. Follow-up dedicated 4 view right shoulder x-ray including an AP internal rotation view. No acute disease in the chest. Electronically signed by: Galindo Mata MD 11/21/2024 03:27 PM EDT Dictated By: Galindo Mata MD Signed By: <Electronically signed by Galindo Mata MD in OV> 11/21/24 1527 DD/ 1511 TD/TT: 11/21/24 1516 [employer] Assoc: Procedure Note Donjainterpreter, Image - 11/21/[address] [address] XRay Report Signed Patient: Jennifer Whitehead IMR#: [id number] 4 : 9Acct:[id number] Age/Sex: 74 / FADM Date: 11/21/24 Loc: [facility].ED Attending Dr: Ordering Physician: Christine Espino DO Date of Service: 11/21/24 Procedure(s): XR chest 2V Accession Number(s): [id number] cc: Christine Espino DO; Vivian Massey DO Reason for Exam: sepsis EXAMINATION: XR CHEST CLINICAL INFORMATION: sepsis COMPARISON: July 19, 2024 TECHNIQUE: 2 views of the chest were obtained. FINDINGS: There is a 9 mm circular density in the medial right humeral head along the anatomic neck. It is not seen on the prior x-rays. Lungs are clear. Heart size is normal. There is atherosclerotic calcification in the aortic arch. A gastric band is stable at the GE junction. XR/XR chest 2V IMPRESSION: There is a new 9 mm density projecting over the right humerus head neck junction. This could represent a sclerotic bone lesion (static disease is not ruled out) or could represent crystal deposition within subscapularis tendon. Follow-up dedicated 4 view right shoulder x-ray including an AP internal rotation view. No acute disease in the chest. Electronically signed by: Galindo Mata MD 11/21/2024 03:27 PM EDT Dictated By: Galindo Mata MD Signed By: <Electronically signed by Galindo Mata MD in OV> 11/21/24 1527 DD/ 1511 TD/TT: 11/21/24 1516 Sales Assoc: [facility] External Provider IMG XR PROCEDURES Final Result * Lipid Panel, Standard (07/06/2023 11:26 AM EDT) Triglycerides 83 <150 mg/dL [facility] Comment:Desirable Triglyceri de: less than 150 mg/dLBorderline High Triglyceride 150-199 mg/dLHigh Triglyceride: 200-499 mg/dLVery High Triglyceride: greater than or equal to 5OO mg/dL Cholesterol 132 <200 mg/dL [facility] Comment:Desirable Cholestero l: less than 200 mg/dLBorderline High Cholesterol: 200-239 mg/dLHigh Cholesterol: greater than 239 mg/dL LDL Cholesterol Calculated 57 <100 mg/dL [facility] Comment:Desirable LDL: less than 100 mg/dLNear Optimal/Above Optimal LDL: 110- 129 mg/dLBorderline High LDL: 130-159 mg/dLHigh LDL: 160-189 mg/dLVery High LDL: greater than or equal to 190 mg/dL HDL Cholesterol 59 >40 mg/dL [facility] Comment:Desirable HDL: great er than 40 mg/dL Note: This HDL assay may give artificially low results in patients with liver disease. Blood Venous blood specimen / Unknown 07/06/2023 11:26 AM EDT 07/06/2023 1:28 PM EDT us Vivian Massey DO LAB BLOOD ORDERABLES Final R esult [facility] [address] [place] [phone] from Last 3 Months or Most Recently Relevant to Health Maintenance Insurance [facility] ST[facility] MEDICARE ADVANTAGE Care Teams Manufacturer Relationship Specialty Start Date End Date Vivian Massey DO [address] [place] [address] PCP - General Family Medicine 07/27/20
--- OUTSIDE RECORDS SUMMARY | 2024-11-21 18:38 | XMS_ITS | Encounter Summary ---
Author Organization [employer] Address [address] [facility] [address] [place] [address] Care Team Providers Care Commodity Analyst Name Role Phone Vivian Massey DO Primary Care Provider [phone] Reason for Visit * Reason Onset Date Comments Prior Authorization 06/20/2022 Encounter Details Date Type Department Care Team ([facility] st Contact Info) Description 06/20/2022 Telephone [facility] [address] [place] [address] Vivian Massey DO [address] [place], [place] [phone] Prior Authorization Social History Tobacco Use Types Packs/Day Years [...] Orientation Straight 01/10/2022 10 :21 AM EDT COVID-19 Exposure Response Date Recorded In the last 10 days, have yo u been in contact with someone who was confirmed or suspected to have Coronavirus/COVID-19? No / Unsure 06/16/2022 2:13 PM EDT documented as of this encounter Miscellaneous Notes * Telephone Encounter - Vivian Massey DO - 06/22/2022 3:13 PM EDT Please initiate PA. Thank you * Telephone Encounter - Anu Rodriguez - 06/20/2022 2:16 PM EDT Tc from pt requesting medication tretinoin (Retin-A) 0.025 % cream. Radiology Services Manager spoke with pharmacy and a PA is needed . documented in this encounter Plan of Treatment Upcoming Encounters Date Type Department Care Team (Late st Contact Info) Description 11/26/2024 10:45 AM EDT Office Visit [facility] [address], [place] [phone] Clara Iverson MD [address] [place] [address] documented as of this encounter Visit Diagnoses Not on filedocumented in this encounter Additional Health Concerns Assessment Noted Time PHQ-9 Depression Total Score: 9 06/17/19 23 4:09 PM EDT documented as of this encounter Care Teams Commodity Analyst Relationship Specialty Start Date End Date Vivian Massey DO [address] [place] [address] PCP - General Family Medicine 07/27/20 documented as of this encounter
--- OUTSIDE RECORDS SUMMARY | 2024-11-21 18:38 | XMS_ITS | Encounter Summary ---
Author Organization [employer] Address [address] [facility] [address] [place] [address] Care Team Providers Care Student Teacher Name Role Phone Vivian Massey DO Primary Care Provider [phone] Encounter Details Date Type Department Care Team ([facility] st Contact Info) Description 08/15/2023 Orders Only [facility] [address] [place] [address] Vivian Massey DO [address] [place], [place] [phone] Social History Tobacco Use Types Packs/Day Years Used Date Smoking Tobacco: Former Cigarettes Smokeless Tobacco: Former Comments:25 years ago Alcohol Use Standard Drinks/Week Comments Never 0 (1 standard drink = 0.6 oz pur e alcohol) Depression Answer Date Recorded Patient Health Questionnaire-9 Score 8 06/06/2023 Patient Health Questionnaire-9 Score 8 06/06/2023 Last PHQ-9: Questionnaire Data Not on file 0 06/06/2023 Housing Stability Answer Date Recorded What is [...] Date Recorded Patient Health Questionnaire-2 Score 1 06/06/2023 Comments Unknown Sex and Gender Information Value [...] Description 11/26/2024 10:45 AM EDT Office Visit [facility] [address] [place] [address] Clara Iverson MD [address] [place] [address] documented as of this encounter Visit Diagnoses Not on filedocumented in this encounter Additional Health Concerns Assessment Noted Time PHQ-9 Depression Total Score: 8 06/06/19 24 2:37 PM EDT documented as of this encounter Care Teams Student Teacher Relationship Specialty Start Date End Date Vivian Massey DO [address] [place] [id number] PCP - General Family Medicine 07/27/20 documented as of this encounter
--- OUTSIDE RECORDS SUMMARY | 2024-11-21 18:38 | XMS_ITS | Encounter Summary ---
Author Organization [employer] Address [address] [facility] [address] [place] [address] Care Team Providers Care Fruit Shipper Name Role Phone Vivian Massey DO Primary Care Provider [phone] Reason for Visit * Reason Onset Date Comments Nurse Triage 08/22/2023 Encounter Details Date Type Department Care Team ([facility] st Contact Info) Description 08/22/2023 Telephone [facility] [address] [place] [address] Vivian Massey DO [address] [place], [place] [phone] Nurse Triage Social History Tobacco Use Types Packs/Day Years [...] encounter Miscellaneous Notes * Telephone Encounter - Lynn Mccloud RN - 08/22/2023 3:25 PM EDT Call returned to Jennifer Whitehead to triage below. Reports having fungal infection on the inner thighsand under abdomen. Pt now having on vulva and rectum. Per pt having odor. No discharge. Per pt having rash around area and red. No blister like. Pt using clotrimazole-betamethasone and nystatin powder with no relief. Pt offered appts with team providers as no visit with PCP. Pt declines only wishes to see PCP, Advised not able to book > 48 hours. Can send note to PCP and team to see if willingto send in alt rx or oral antifungal for tx. PT agrees. During call pt also asks for PCP to send in Rx for Rybelsus medication as Dr. Greco still having issues completing PA correctly. States was discussed at last visit with PCP on 07/06/23. PT advised will forward to PCP and team for follow up. Protocol Used: Vulvar Symptoms (Adult) Protocol-Based Disposition: See in Office or Video Visit Today or Tomorrow Override (Final) Disposition: Discuss with PCP and Callback by Nurse Override Reason: Caller refused suggested disposition Positive Triage Questions: * Moderate-Severe itching (i.e., interferes with school, work, or sleep) * Vulvar itching and not improved > 3 days following Care Advice * All higher-acuity triage questions were negative Care Advice Discussed: * Reassurance and Education - Vulvar Itching * Genital Hygiene * Reasons To Call Back - You become worse * Telephone Encounter - Farrah Kebede - 08/22/2023 3:19 PM EDT Symptom: Vulvar Symptoms Outcome: Schedule an urgent appointment (within 1 hour) or talk to a nurse or provider soon Reason: Severe pain now The caller accepted this outcome documented in this encounter Plan of Treatment Upcoming Encounters Date Type Department Care Team (Late st Contact Info) Description 11/26/2024 10:45 AM EDT Office Visit [facility] [address] [place] [address] Clara Iverson MD [address] [place] [address] documented as of this encounter Visit Diagnoses Not on filedocumented in this encounter Additional Health Concerns Assessment Noted Time PHQ-9 Depression Total Score: 8 06/06/19 24 2:37 PM EDT documented as of this encounter Care Teams Fruit Shipper Relationship Specialty Start Date End Date Vivian Massey DO [address] [place] [address] PCP - General Family Medicine 07/27/20 documented as of this encounter
--- OUTSIDE RECORDS SUMMARY | 2024-11-21 18:38 | XMS_ITS | Encounter Summary ---
Author Organization [employer] Address [address] [facility] [address] [place] [address] Care Team Providers Care Spray Machine Loader Name Role Phone Shilpa Vivian GARCIA Primary Care Provider + [phone] Encounter Details Date Type Department Care Team (Late st Contact Info) Description 11/21/2024 Orders Only [facility] External Provider, [facility] Social History Tobacco Use Types Packs/Day Years [...] Description 11/26/2024 10:45 AM EDT Office Visit [facility] [address] [place] [phone] Clara Iverson MD [address] [place], [place] [phone] documented as of this encounter Procedures Procedure Name Priority Date/Time Associated Diagnosis Comments XR CHEST 2 VIEWS Routine 11/21/2024 3:11 PM EDT documented in this encounter Results * XR Chest 2 Views (11/21/2024 3:11 PM EDT) Anatomical Region Laterality Modality Chest Radiographic Elma ging 11/21/2024 3:11 PM EDT Narrative 11/21/2024 3:30 PM EDT [address] [address] XRay Report Signed Patient: Jennifer Whitehead I MR#: [id number] 4 : 1950 Acct:[id number] Age/Sex: 74 / F ADM Date: 11/21/24 Loc: [facility].ED Attending Dr: Ordering Physician: Christine Espino DO Date of Service: 11/21/24 Procedure(s): XR chest 2V Accession Number(s): [id number] cc: Christine Espino DO; Vivian Massey DO [...] Galindo Mata MD 11/21/2024 03:27 PM EDT RP Dictated By: Galindo Mata MD Signed By: <Electronically signed by Galindo Mata MD in OV> 11/21/24 1527 DD/ 1511 TD/TT: 11/21/24 1516 [employer]oles[employer] Retail Merchant: Procedure Note Donotuseinterpreter, Image - 11/21/2024 [place] [address] XRay Report Signed Patient: Jennifer Whitehead IMR#: [id number] 4 : 9Acct:[id number] Age/Sex: 74 / FADM Date: 11/21/24 Loc: .ED Attending Dr: Ordering Physician: Christine Espino DO Date of Service: 11/21/24 Procedure(s): XR chest 2V Accession Number(s): [id number] cc: Christine Espino DO; Vivian Massey DO [...] Galindo Mata MD 11/21/2024 03:27 PM EDT RP Dictated By: Galindo Mata MD Signed By: <Electronically signed by Galindo Mata MD in OV> 11/21/24 1527 DD/ 1511 TD/TT: 11/21/24 1516 Wholesale And Retail Merchant: [facility] External Provider IMG XR PROCEDURES Final Result documented in this encounter Visit Diagnoses Not on filedocumented in this encounter Additional Health Concerns Assessment Noted Time PHQ-9 Depression Total Score: 10 024 9:35 AM EDT documented as of this encounter Care Teams Spray Machine Loader Relationship Specialty Start Date End Date Vivian Massey DO [address] [place] [address] PCP - General Family Medicine 07/27/20 documented as of this encounter
== END 2024-11-21 21:22 | disposition home or self-care (01) ==
PROVIDERS: Emergency Provider Student in an Organized Health Care Education/Training Program; PCP Family Medicine
DX: M54.50 Low back pain, unspecified (principal); R30.0 Dysuria; R32 Unspecified urinary incontinence; R11.0 Nausea; Z87.891 Personal history of nicotine dependence; Z79.899 Other long term (current) drug therapy
CPT/HCPCS: 36415; 71046; 80053; 83605; 85025; 87040; 96360; 96361; 99284; 99285

== ENCOUNTER → 2024-11-21 14:40 | Outpatient (BNV) | payer MEDICARE, MEDICAID, SELFPAY | PROVIDERS: Emergency Provider Student in an Organized Health Care Education/Training Program; PCP Family Medicine; Visit Provider Radiology Diagnostic Radiology | DX: R53.1 Weakness (principal) | CPT/HCPCS: 71046 ==

== ENCOUNTER 2024-11-22 08:34 | Outpatient (REF) | payer MEDICARE, MEDICAID, SELFPAY ==
--- OUTSIDE RECORDS SUMMARY | 2024-11-25 09:42 | XMS_ITS | Clinical Summary ---
Author Organization [address] [facility] Address [address] [place] [address] Phone Care Team Providers Care Teacher Tutor Name Role Phone Vivian Massey Primary Care Provider [phone]- [phone] Medications Mounjaro 5 mg/0.5 mL injection INJECT ONE PEN (=5MG) SUBCUTANEOUSLY ONCE A WEEK DIRECTED 2 mL 11/09/19 25 Active tirzepatide (Mounjaro) 5 mg/0.5 mL injection Inject 0.5 mL (5 mg total) under the skin every 7 (seven) days. 2 mL 10/08/19 25 2024 Discontinued Encounters Date Type Department Care Team Description 10/28/2024 Lab Requisition [facility] [address] [place] [phone] Araceli Maya MD Unspecified osteoarthritis, unspecified site; Essential (primary) hypertension; Anemia, unspecified 10/21/2024 Lab Requisition [facility] [address] [place] [phone] Araceli Maya MD Essential (primary) hypertension; Anemia, unspecified; Unspecified osteoarthritis, unspecified site 10/14/2024 Lab Requisition [facility] [address] [place] [phone] Araceli Maya MD Essential (primary) hypertension; Anemia, unspecified; Unspecified osteoarthritis, unspecified site 10/07/2024 Lab Requisition [facility] [address] [place] [phone] Araceli Maya MD Essential (primary) hypertension; Anemia, unspecified; Unspecified osteoarthritis, unspecified site 10/07/2024 Lab Requisition [facility] [address] [place] [address] Araceli Maya MD Urinary tract infection, site not specified 10/02/2024 Lab Requisition [facility] [address] [place] [address] Araceli Maya MD Hypokalemia 09/30/2024 Lab Requisition [facility] [address] [place] [address] Araceli Maya MD Essential (primary) hypertension; Anemia, unspecified; Unspecified osteoarthritis, unspecified site 09/25/2024 Lab Requisition [facility] [address] [place] [phone] Araceli Maya MD Hypokalemia 09/23/2024 Lab Requisition [facility] [address] [place] [address] Araceli Maya MD Essential (primary) hypertension; Anemia, unspecified; Unspecified osteoarthritis, unspecified site 09/18/2024 Lab Requisition [facility] [address] [place] [phone] Araceli Maya MD Hypokalemia 09/16/2024 Lab Requisition [facility] [address] [place] [address] Araceli Maya MD Essential (primary) hypertension; Anemia, unspecified; Unspecified osteoarthritis, unspecified site 09/15/2024 Lab Requisition [facility] [address] [place] [phone] Annalisa Kulkarni PA Altered mental status, unspecified 09/09/2024 Lab Requisition [facility] Lab [address] [place] [phone] Araceli Maya MD Essential (primary) hypertension; Anemia, unspecified; Unspecified osteoarthritis, unspecified site 09/05/2024 Lab Requisition [facility] Lab [address] [place] [phone] Araceli Maya MD Hypokalemia 09/03/2024 Lab Requisition [facility] Lab [address] [place] [phone] Araceli Maya MD Essential (primary) hypertension; Anemia, unspecified; Unspecified osteoarthritis, unspecified site 08/26/2024 Lab Requisition [facility] [address] [place] [phone] Araceli Maya MD Essential (primary) hypertension; Anemia, unspecified; Unspecified osteoarthritis, unspecified site from Last 3 Months Immunizations Name Administration Dates Next Due Moderna SARS-CoV-2 COVID-19, mRNA, LNP-S, preservative free 07/13/2020,06/15/2020 Surgical History Surgery Date Site/Laterality Comments BREAST REDUCTION 1997 PROCEDURE: GA BREAST REDUCTION SECTION 1982 PROCEDURE: HISTORICAL BLADDER SUSPENSION PROCEDURE: HISTORICAL BLADDER SUSPENSION; COMMENT: Marcus Corin operation GASTRIC BYPASS 2005 PROCEDURE: GA GASTRIC RSTCV W/BYP W/SM INT RCNSTJ LIMIT [...] 12/28/2023 1:34 PM EDT Plan of Treatment Health Maintenance [...] Patients (1 - 1-dose 75+ series) 2023 Depression Screening 03/13/2024 COVID-19 Vaccine (3 - 2024- season) 2024 07/13/2020, 06/15/2020 Influenza Vaccine (#1) 2024 , 02/09/2023, 01/04/2022, Additional history exists Hypertension/CHF/CAD Annual BMP Blood Test 10/22/2025 10/22/2024, 10/15/2024, 10/08/2024, Additional history exists DTaP,Tdap,and Td Vaccines (3 [...] Associated Diagnosis Comments COMPLETE BLOOD COUNT Routine 10/22/2024 6:15 AM EDT Essential (primary) hypertension Anemia, unspecified Unspecified osteoarthritis, unspecified site BASIC METABOLIC PANEL Routine 10/22/2024 6:15 AM EDT Essential (primary) hypertension Anemia, unspecified Unspecified osteoarthritis, unspecified site COMPLETE BLOOD COUNT Routine 10/15/2024 6:42 AM EDT Essential (primary) hypertension Anemia, unspecified Unspecified osteoarthritis, unspecified site BASIC METABOLIC PANEL Routine 10/15/2024 6:42 AM EDT Essential (primary) hypertension Anemia, unspecified Unspecified osteoarthritis, unspecified site COMPLETE BLOOD COUNT Routine 10/08/2024 5:15 AM EDT Essential (primary) hypertension Anemia, unspecified Unspecified osteoarthritis, unspecified site BASIC METABOLIC PANEL Routine 10/08/2024 5:15 AM EDT Essential (primary) hypertension Anemia, unspecified Unspecified osteoarthritis, unspecified site URINALYSIS WITH REFLEX MICROSCOPIC Routine 10/06/2024 8:10 AM EDT Urinary tract infection, site not specified URINALYSIS WITH REFLEX MICROSCOPIC Routine 10/06/2024 8:10 AM EDT Urinary tract infection, site not specified CULTURE URINE Routine 10/06/2024 8:10 AM EDT Urinary tract infection, site not specified BASIC METABOLIC PANEL Routine 10/03/2024 5:51 AM EDT Hypokalemia COMPLETE BLOOD COUNT Routine 10/01/2024 5:36 AM EDT Essential (primary) hypertension Anemia, unspecified Unspecified osteoarthritis, unspecified site BASIC METABOLIC PANEL Routine 10/01/2024 5:36 AM EDT Essential (primary) hypertension Anemia, unspecified Unspecified osteoarthritis, unspecified site BASIC METABOLIC PANEL Routine 09/26/2024 5:47 AM EDT Hypokalemia BASIC METABOLIC PANEL Routine 09/24/2024 6:13 AM EDT Essential (primary) hypertension Anemia, unspecified Unspecified osteoarthritis, unspecified site COMPLETE BLOOD COUNT Routine 09/24/2024 6:13 AM EDT Essential (primary) hypertension Anemia, unspecified Unspecified osteoarthritis, unspecified site BASIC METABOLIC PANEL Routine 09/18/2024 5:51 AM EDT Hypokalemia BASIC METABOLIC PANEL Routine 09/17/2024 6:04 AM EDT Essential (primary) hypertension Anemia, unspecified Unspecified osteoarthritis, unspecified site COMPLETE BLOOD COUNT Routine 09/17/2024 6:04 AM EDT Essential (primary) hypertension Anemia, unspecified Unspecified osteoarthritis, unspecified site URINALYSIS WITH REFLEX MICROSCOPIC Routine 09/14/2024 11:00 AM EDT Altered mental status, unspecified URINALYSIS WITH REFLEX MICROSCOPIC Routine 09/14/2024 11:00 AM EDT Altered mental status, unspecified CULTURE URINE Routine 09/14/2024 11:00 AM EDT Altered mental status, unspecified COMPLETE BLOOD COUNT Routine 09/10/2024 6:14 AM EDT Essential (primary) hypertension Anemia, unspecified Unspecified osteoarthritis, unspecified site BASIC METABOLIC PANEL Routine 09/10/2024 6:14 AM EDT Essential (primary) hypertension Anemia, unspecified Unspecified osteoarthritis, unspecified site BASIC METABOLIC PANEL Routine 09/06/2024 5:51 AM EDT Hypokalemia BASIC METABOLIC PANEL Routine 09/03/2024 6:42 AM EDT Essential (primary) hypertension Anemia, unspecified Unspecified osteoarthritis, unspecified site COMPLETE BLOOD COUNT Routine 09/03/2024 6:42 AM EDT Essential (primary) hypertension Anemia, unspecified Unspecified osteoarthritis, unspecified site COMPLETE BLOOD COUNT Routine 08/27/2024 6:06 AM EDT Essential (primary) hypertension Anemia, unspecified Unspecified osteoarthritis, unspecified site BASIC METABOLIC PANEL Routine 08/27/2024 6:06 AM EDT Essential (primary) hypertension Anemia, unspecified Unspecified osteoarthritis, unspecified site from Last 3 Months Results * (ABNORMAL) Complete blood count (10/22/2024 6:15 AM EDT) Only the most recent of9 resultswithin the time period is included. WBC 3.6(L) 4.8 - 10.8 K/mcL LAB HEMETOLOGY METHOD 10/22/2024 9:10 AM [facility] RBC 3.40(L) 3.80 - 4.80 M/mcL LAB HEMETOLOGY METHOD 10/22/2024 9:10 AM [facility] Hemoglobin 10.6(L) 11.5 - 16.0 g/dL LAB HEMETOLOGY METHOD 10/22/2024 9:10 AM [facility] Hematocrit 32.5(L) 35.0 - 47.0 % LAB HEMETOLOGY METHOD 10/22/2024 9:10 AM [facility] MCV 95.0 79.0 - 98.0 FL LAB HEMETOLOGY METHOD 10/22/2024 9:10 AM [facility] MCH 31.0 27.0 - 32.0 pcg LAB HEMETOLOGY METHOD 10/22/2024 9:10 AM [facility] MCHC 32.6 32.0 - 37.0 g/dL LAB HEMETOLOGY METHOD 10/22/2024 9:10 AM [facility] RDW 14.6 11.0 - 15.0 % LAB HEMETOLOGY METHOD 10/22/2024 9:10 AM [facility] Platelets 254 130 - 400 K/mcL LAB HEMETOLOGY METHOD 10/22/2024 9:10 AM [facility] MPV 8.9 7.0 - 11.0 FL LAB HEMETOLOGY METHOD 10/22/2024 9:10 AM [facility] NRBC 0.0 <1.0 % LAB HEMETOLOGY METHOD 10/22/2024 9:[address] [facility] NRBC Absolute 0.00 <0.10 K/mcL LAB HEMETOLOGY METHOD 10/22/2024 9:10 AM [facility] Blood Venous blood specimen / Unknown Venipuncture / Unknown 10/22/2024 6:15 AM EDT 10/22/2024 8:58 AM EDT us Araceli Maya MD LAB BLOOD ORDERABLES Fin al Result [facility] [address] [place] [address], * (ABNORMAL) Basic metabolic panel (10/22/2024 6:15 AM EDT) Only the most recent of13 resultswithin the time period is included. Sodium 137 133 - 145 mmol/L LAB CHEMISTRY METHOD 10/22/2024 9:29 AM [facility] Potassium 3.6 3.5 - 5.5 mmol/L LAB CHEMISTRY METHOD 10/22/2024 9:29 AM [facility] Chloride 101 96 - 110 mmol/L LAB CHEMISTRY METHOD 10/22/2024 9:29 AM [facility] CO2 34(H) 21 - 32 mmol/L LAB CHEMISTRY METHOD 10/22/2024 9:29 AM [facility] Anion Gap 2(L) 3 - 11 LAB CHEMISTRY METHOD 10/22/2024 9:29 AM [facility] Glucose 74 70 - 100 mg/dL LAB CHEMISTRY METHOD 10/22/2024 9:29 AM [facility] BUN 14 5 - 25 mg/dL LAB CHEMISTRY METHOD 10/22/2024 9:29 AM [facility] Creatinine 0.89 0.50 - 1.10 mg/dL LAB CHEMISTRY METHOD 10/22/2024 9:[address] [facility] eGFR 67 >=60 mL/min/1. 73m2 LAB CHEMISTRY METHOD 10/22/2024 9:[address] [facility] Comment:Calculation based on the Chronic Kidney Disease Epidemiology Collaboration (CKD-EPI) equation refit without adjustment for race. BUN/Creatinine Ratio 15.7 LAB CHEMISTRY METHOD 10/22/2024 9:[address] [facility] Calcium 8.5 8.5 - 10.5 mg/dL LAB CHEMISTRY METHOD 10/22/2024 9:29 AM [facility] Blood Venous blood specimen / Unknown Venipuncture / Unknown 10/22/2024 6:15 AM EDT 10/22/2024 8:58 AM EDT Araceli Maya MD LAB BLOOD ORDERABLES Fin al Result [facility] [address] [place] [address], * (ABNORMAL) Urinalysis with reflex microscopic (10/06/2024 8:10 AM EDT) Only the most recent of2 resultswithin the time period is included. Specific [place] Urine 1.022 1.003 - 1.030 LAB URINALYSIS - AUTOMATED METHOD 10/07/2024 12:[address] [facility] pH, Urine 7.0 5.0 - 8.0 pH LAB URINALYSIS - AUTOMATED METHOD 10/07/2024 12:13 PM [facility] Leukocytes, Urine Large(A) Negative LAB URINALYSIS - AUTOMATED METHOD 10/07/2024 12:13 PM [facility] Nitrite, Urine Positive(A) Negative LAB URINALYSIS - AUTOMATED METHOD [facility] Protein, Urine 100(A) <=Trace mg/dL LAB URINALYSIS - AUTOMATED METHOD 10/07/2024 12:13 PM [facility] Glucose, Urine Negative Negative mg/dL LAB URINALYSIS - AUTOMATED METHOD 10/07/2024 12:13 PM [facility] Ketones, Urine Trace(A) Negative mg/dL LAB URINALYSIS - AUTOMATED METHOD 10/07/2024 12:13 PM [facility] Urobilinogen , Urine 1.0 0.2 - 1.0 mg/dL LAB URINALYSIS - AUTOMATED METHOD 10/07/2024 12:13 PM [facility] Bilirubin, Urine Negative Negative LAB URINALYSIS - AUTOMATED METHOD 10/07/2024 12:13 PM [facility] Blood, Urine Large(A) Negative LAB URINALYSIS - AUTOMATED METHOD 10/07/2024 12:13 PM [facility] RBC, Urine 20.0(H) 0 - 4 /HPF LAB URINALYSIS - AUTOMATED METHOD 10/07/2024 12:13 PM [facility] WBC, Urine 212.9(H) 0 - 4 /HPF LAB URINALYSIS - AUTOMATED METHOD 10/07/2024 12:13 PM [facility] Squamous Epithelial, Urine 70(H) 0 - 60 /LPF LAB URINALYSIS - AUTOMATED METHOD 10/07/2024 12:13 PM [facility] Non-Squamous Epithelial, Urine 2-5 TRANSITIONAL EPI /LPF LAB URINALYSIS - AUTOMATED METHOD 10/07/2024 12:13 PM [facility] Crystals, Urine MOD CALCIUM OXALATE /LPF LAB URINALYSIS - AUTOMATED METHOD 10/07/2024 12:13 PM [facility] Bacteria, Urine Moderate(A) Negative /HPF LAB URINALYSIS - AUTOMATED METHOD 10/07/2024 12:13 PM [facility] Hyaline Casts, Urine 1.6 0 - 3 /LPF LAB URINALYSIS - AUTOMATED METHOD 10/07/2024 12:[address] [facility] Urine Urine specimen obtained by clean catch procedure / Unknown Non-blood Collection / Unknown 10/06/2024 8:10 AM EDT 10/07/2024 11:17 AM EDT us Araceli Maya MD LAB URINE ORDERABLES Fin al Result [facility] [address] [place] [address], [place] [phone] * (ABNORMAL) Culture urine (10/06/2024 8:10 AM EDT) Only the most recent of2 resultswithin the time period is included. Culture, Urine >=100,000 CFU/mL Escherichia coli(A) RADHAMES 10/10/2024 7:[address] [facility] Comment: This is an edited result. Previous organism was Gram negative bacilli on 10/08/2024 at 0843 EDT. Culture, Urine 10,000-49,000 CFU/mL Morganella morganii ssp morganii(A) RADHAMES 10/10/2024 7:[address] [facility] Comment: The organism value for this result has been updated. These results have been appended to the previously preliminary verified report. Urine Urine specimen obtained by clean catch procedure / Unknown Non-blood Collection / Unknown 10/06/2024 8:10 AM EDT 10/07/2024 11:17 AM EDT Narrative Organism Antibiotic Method Susceptibility Escherichia coli Amoxicillin/Clavulanate RADHAMES <=2 ug/ml: Susceptible Escherichia coli Ampicillin/Sulbactam RADHAMES <=2 ug/ml: Susceptible Escherichia coli Piperacillin/Tazobactam RADHAMES <=4 ug/ml: Susceptible Escherichia coli Cefazolin (Urine) RADHAMES <=1 ug/ml: Susceptible Escherichia coli Cefoxitin RADHAMES <=4 ug/ml: Susceptible Escherichia coli Ceftazidime RADHAMES <=0.5 ug/ml: Susceptible Escherichia coli Ceftriaxone RADHAMES <=0.25 ug/ml: Susceptible Escherichia coli Cefepime RADHAMES <=0.12 ug/ml: Susceptible Escherichia coli Meropenem RADHAMES <=0.25 ug/ml: Susceptible Escherichia coli Amikacin RADHAMES 2 ug/ml: Susceptible Escherichia coli Gentamicin RADHAMES <=1 ug/ml: Susceptible Escherichia coli Ciprofloxacin RADHAMES <=0.06 ug/ml: Susceptible Escherichia coli Levofloxacin RADHAMES <=0.12 ug/ml: Susceptible Escherichia coli Nitrofurantoin RADHAMES <=16 ug/ml: Susceptible Escherichia coli Trimethoprim/Sulfame thoxazo le RADHAMES <=20 ug/ml: Susceptible Morganella morganii ssp morganii Amoxicillin/Clavulanate RADHAMES >=32 ug/ml: Resistant Morganella morganii ssp morganii Ampicillin/Sulbactam RADHAMES 16 ug/ml: Intermediate Morganella morganii ssp morganii Piperacillin/Tazobactam RADHAMES <=4 ug/ml: Susceptible Morganella morganii ssp morganii Cefoxitin RADHAMES 8 ug/ml: Susceptible Morganella morganii ssp morganii Meropenem RADHAMES 0.5 ug/ml: Susceptible Morganella morganii ssp morganii Amikacin RADHAMES 4 ug/ml: Susceptible Morganella morganii ssp morganii Ciprofloxacin RADHAMES <=0.06 ug/ml: Susceptible Morganella morganii ssp morganii Levofloxacin RADHAMES <=0.12 ug/ml: Susceptible Morganella morganii ssp morganii Nitrofurantoin RADHAMES 128 ug/ml: Resistant Morganella morganii ssp morganii Trimethoprim/Sulfamethoxazo le RADHAMES <=20 ug/ml: Susceptible Araceli Maya MD LAB MICROBIOLOGY - GENER AL ORDERABLES Final Result [facility] [address] [place] [address], from Last 3 Months Insurance MEDICAID - [place] [address] Care Teams Teacher Tutor Relationship Specialty Start Date End Date Vivian Massey DO [address] [place] [address] PCP - General Internal Medicine 07/21/17
--- OUTSIDE RECORDS SUMMARY | 2024-11-25 09:42 | XMS_ITS | Encounter Summary ---
Author Organization [facility] Address [address] [place] [address] Care Team Providers Care Health Care Attorney Name Role Phone Vivian aMssey DO Primary Care Provider [phone]- [phone] Encounter Details Date Type Department Care Team (Late st Contact Info) Description 10/14/2024 Lab Requisition [facility] Lab [address] [facility] [place] [address] Araceli Maya MD [address] [id number] Essential (primary) hypertension; Anemia, unspecified; Unspecified osteoarthritis, [...] Associated Diagnosis Comments COMPLETE BLOOD COUNT Routine 10/15/2024 6:42 AM EDT Essential (primary) hypertension Anemia, unspecified Unspecified osteoarthritis, unspecified site BASIC METABOLIC PANEL Routine 10/15/2024 6:42 AM EDT Essential (primary) hypertension Anemia, unspecified Unspecified osteoarthritis, unspecified site documented in this encounter Results * (ABNORMAL) Complete blood count (10/15/2024 6:42 AM EDT) [facility] WBC 5.2 4.8 - 10.8 K/mcL LAB HEMETOLOGY METHOD 10/15/2024 9:09 AM [facility] RBC 3.50(L) 3.80 - 4.80 M/mcL LAB HEMETOLOGY METHOD 10/15/2024 9:09 AM [facility] Hemoglobin 11.0(L) 11.5 - 16.0 g/dL LAB HEMETOLOGY METHOD 10/15/2024 9:09 AM [facility] Hematocrit 34.0(L) 35.0 - 47.0 % LAB HEMETOLOGY METHOD 10/15/2024 9:09 AM [facility] MCV 96.0 79.0 - 98.0 FL LAB HEMETOLOGY METHOD 10/15/2024 9:09 AM [facility] MCH 31.1 27.0 - 32.0 pcg LAB HEMETOLOGY METHOD 10/15/2024 9:09 AM [facility] MCHC 32.4 32.0 - 37.0 g/dL LAB HEMETOLOGY METHOD 10/15/2024 9:09 AM [facility] RDW 14.6 11.0 - 15.0 % LAB HEMETOLOGY METHOD 10/15/2024 9:09 AM [facility] Platelets 264 130 - 400 K/mcL LAB HEMETOLOGY METHOD 10/15/2024 9:09 AM [facility] MPV 8.8 7.0 - 11.0 FL LAB HEMETOLOGY METHOD 10/15/2024 9:09 AM [facility] NRBC 0.0 <1.0 % LAB HEMETOLOGY METHOD 10/15/2024 9:09 AM [facility] NRBC Absolute 0.00 <0.10 K/mcL LAB HEMETOLOGY METHOD 10/15/2024 9:09 AM [facility] Blood Venous blood specimen / Unknown Venipuncture / Unknown 10/15/2024 6:42 AM EDT 10/15/2024 8:23 AM EDT us Araceli Maya MD LAB BLOOD ORDERABLES Fin al Result [facility] [address] [place] [address], * (ABNORMAL) Basic metabolic panel (10/15/2024 6:42 AM EDT) Sodium 134 133 - 145 mmol/L LAB CHEMISTRY METHOD 10/15/2024 9:34 AM [facility] Potassium 4.1 3.5 - 5.5 mmol/L LAB CHEMISTRY METHOD 10/15/2024 9:34 AM [facility] Chloride 97 96 - 110 mmol/L LAB CHEMISTRY METHOD 10/15/2024 9:34 AM [facility] CO2 34(H) 21 - 32 mmol/L LAB CHEMISTRY METHOD 10/15/2024 9:34 AM [facility] Anion Gap 3 3 - 11 LAB CHEMISTRY METHOD 10/15/2024 9:34 AM [facility] Glucose 84 70 - 100 mg/dL LAB CHEMISTRY METHOD 10/15/2024 9:34 AM [facility] BUN 15 5 - 25 mg/dL LAB CHEMISTRY METHOD 10/15/2024 9:34 AM [facility] Creatinine 1.01 0.50 - 1.10 mg/dL LAB CHEMISTRY METHOD 10/15/2024 9:34 AM [facility] eGFR 58(L) >=60 mL/min/1. 73m2 LAB CHEMISTRY METHOD 10/15/2024 9:34 AM EDT [facility] Comment:Calculation based on the Chronic Kidney Disease Epidemiology Collaboration (CKD-EPI) equation refit without adjustment for race. BUN/Creatinine Ratio 14.9 LAB CHEMISTRY METHOD 10/15/2024 9:34 AM EDT [facility] Calcium 9.0 8.5 - 10.5 mg/dL LAB CHEMISTRY METHOD 10/15/2024 9:34 AM EDT [facility] Blood Venous blood specimen / Unknown Venipuncture / Unknown 10/15/2024 6:42 AM EDT 10/15/2024 8:23 AM EDT us Araceli Maya MD LAB BLOOD ORDERABLES Fin al Result [facility] [address] [place] [address], documented in this encounter Visit Diagnoses Diagnosis Essential (primary) hypertension Unspecified essential hypertension Anemia, unspecified Unspecified osteoarthritis, unspecified site documented in this encounter Care Teams Health Care Attorney Relationship Specialty Start Date End Date Vivian Massey DO [address] [place] [address] PCP - General Internal Medicine 07/21/17 documented as of this encounter
--- OUTSIDE RECORDS SUMMARY | 2024-11-25 09:42 | XMS_ITS | Encounter Summary ---
Author Organization [facility] Address [address] [place] [address] Care Team Providers Care Space Technologist Name Role Phone Vivian Massey DO Primary Care Provider +1- [phone] Encounter Details Date Type Department Care Team (Late st Contact Info) Description 09/23/2024 Lab Requisition [facility] - Main Lab [address] [facility] [place] [address] Araceli Maya MD [address] [phone] Essential (primary) hypertension; Anemia, unspecified; Unspecified osteoarthritis, [...] Associated Diagnosis Comments COMPLETE BLOOD COUNT Routine 09/24/2024 6:13 AM EDT Essential (primary) hypertension Anemia, unspecified Unspecified osteoarthritis, unspecified site BASIC METABOLIC PANEL Routine 09/24/2024 6:13 AM EDT Essential (primary) hypertension Anemia, unspecified Unspecified osteoarthritis, unspecified site documented in this encounter Results * (ABNORMAL) Basic metabolic panel (09/24/2024 6:13 AM EDT) Sodium 137 133 - 145 mmol/L LAB CHEMISTRY METHOD 09/24/2024 9:37 AM [facility] Potassium 3.3(L) 3.5 - 5.5 mmol/L LAB CHEMISTRY METHOD 09/24/2024 9:37 AM [facility] Chloride 99 96 - 110 mmol/L LAB CHEMISTRY METHOD 09/24/2024 9:37 AM [facility] CO2 31 21 - 32 mmol/L LAB CHEMISTRY METHOD 09/24/2024 9:37 AM [facility] Anion Gap 7 3 - 11 LAB CHEMISTRY METHOD 09/24/2024 9:37 AM [facility] Glucose 80 70 - 100 mg/dL LAB CHEMISTRY METHOD 09/24/2024 9:37 AM [facility] BUN 12 5 - 25 mg/dL LAB CHEMISTRY METHOD 09/24/2024 9:37 AM [facility] Creatinine 0.73 0.50 - 1.10 mg/dL LAB CHEMISTRY METHOD 09/24/2024 9:37 AM [facility] eGFR 85 >=60 mL/min/1. 73m2 LAB CHEMISTRY METHOD 09/24/2024 9:37 AM [facility] Comment:Calculation based on the Chronic Kidney Disease Epidemiology Collaboration (CKD-EPI) equation refit without adjustment for race. BUN/Creatinine Ratio 16.4 LAB CHEMISTRY METHOD 09/24/2024 9:37 AM [facility] Calcium 9.2 8.5 - 10.5 mg/dL LAB CHEMISTRY METHOD 09/24/2024 9:37 AM [facility] Blood Venous blood specimen / Unknown Venipuncture / Unknown 09/24/2024 6:13 AM EDT 09/24/2024 8:25 AM EDT us Whit Laba Elder MD LAB BLOOD ORDERABLES Fin al Result [facility] [address] [place] [address], * (ABNORMAL) Complete blood count (09/24/2024 6:13 AM EDT) WBC 4.4(L) 4.8 - 10.8 K/mcL LAB HEMETOLOGY METHOD 09/24/2024 9:11 AM EDT [facility] RBC 3.60(L) 3.80 - 4.80 M/mcL LAB [facility]EMETOLOGY [facility] Hemoglobin 11.3(L) 11.5 - 16.0 g/dL LAB HEMETOLOGY METHOD 09/24/2024 9:11 AM EDT [facility] Hematocrit 35.0 35.0 - 47.0 % LAB HEMETOLOGY METHOD 09/24/2024 9:11 AM EDT [facility] MCV 96.2 79.0 - 98.0 FL LAB HEMETOLOGY METHOD 09/24/2024 9:11 AM [facility] MCH 31.0 27.0 - 32.0 pcg LAB HEMETOLOGY METHOD 09/24/2024 9:11 AM EDT [facility] MCHC 32.3 32.0 - 37.0 g/dL LAB HEMETOLOGY METHOD 09/24/2024 9:11 AM EDT [facility] RDW 14.4 11.0 - 15.0 % LAB HEMETOLOGY METHOD [facility]24 [facility] Platelets 262 130 - 400 K/mcL LAB HEMETOLOGY METHOD 09/24/2024 [facility] MPV 9.3 7.0 - 11.0 FL LAB HEMETOLOGY METHOD 09/24/2024 9:11 AM EDT [facility] NRBC 0.0 <1.0 % LAB HEMETOLOGY METHOD 09/24/2024 9:11 AM EDT [facility] NRBC Absolute 0.00 <0.10 K/mcL LAB HEMETOLOGY METHOD 09/24/2024 9:11 AM EDT [facility] Blood Venous blood specimen / Unknown Venipuncture / Unknown 09/24/2024 6:13 AM EDT 09/24/2024 8:25 AM EDT us Araceli Maya MD LAB BLOOD ORDERABLES Fin al Result [facility] [address] [place] [address], documented in this encounter Visit Diagnoses Diagnosis Essential (primary) hypertension Unspecified essential hypertension Anemia, unspecified Unspecified osteoarthritis, unspecified site documented in this encounter Care Teams Space Technologist Relationship Specialty Start Date End Date Vivian Massey DO [address] [place] [address] PCP - General Internal Medicine 07/21/17 documented as of this encounter
--- OUTSIDE RECORDS SUMMARY | 2024-11-25 09:42 | XMS_ITS | Encounter Summary ---
Author Organization [employer] Address [address] [facility] [address] [place] [address] Care Team Providers Care Compressor Station Chief Engineer Name Role Phone Vivian Massey DO Primary Care Provider [phone] Encounter Details Date Type Department Care Team (Late st Contact Info) Description 04/20/2022 Abstract [facility] [address] [place] [phone] Vivian Massey DO [address] [place], [place] [phone] Social History Tobacco Use Types Packs/Day Years [...] Description 11/26/2024 10:45 AM EDT Office Visit [facility] [address] [place], [place] [phone] Clara Iverson MD [address] [place], [place] [phone] documented as of this encounter Visit Diagnoses Not on filedocumented in this encounter Care Teams Compressor Station Chief Engineer Relationship Specialty Start Date End Date Vivian Massey DO [address] [place] [address] PCP - General Family Medicine 07/27/20 documented as of this encounter
--- OUTSIDE RECORDS SUMMARY | 2024-11-25 09:42 | XMS_ITS | Encounter Summary ---
Author Organization [facility] Address [address] [place] [address] Care Team Providers Care Asbestos Surveyor Name Role Phone Vivian Massey Primary Care Provider [phone]- [phone] Encounter Details Date Type Department Care Team ([facility] st Contact Info) Description 09/25/2024 Lab Requisition [facility] - Main Lab [address] [place] [address] Araceli Maya MD [address] [address] Hypokalemia Social History Tobacco Use Types Packs/Day [...] LAB CHEMISTRY METHOD 09/26/2024 9:09 AM EDT [facility] Potassium 3.6 3.5 - 5.5 mmol/L [...] MD LAB BLOOD ORDERABLES Fin al Result [facility] [address] [place] [address], documented in this encounter Visit Diagnoses Diagnosis Hypokalemia Hypopotassemia documented in this encounter Care Teams Asbestos Surveyor Relationship Specialty Start Date End Date Vivian Massey DO [address] [place] [address] PCP - General Internal Medicine 07/21/17 documented as of this encounter
--- OUTSIDE RECORDS SUMMARY | 2024-11-25 09:42 | XMS_ITS | Encounter Summary ---
Author Organization [facility] Address [address] [place] [address] Care Team Providers Care Rail Car Driver Name Role Phone Vivian Massey DO Primary Care Provider +1- [phone] Encounter Details Date Type Department Care Team (Late st Contact Info) Description 10/21/2024 Lab Requisition [facility] - Main Lab 299 [facility] [place] [address] Araceli Maya MD [address] [phone] Essential (primary) hypertension; Anemia, unspecified; Unspecified osteoarthritis, [...] encounter Results * (ABNORMAL) Complete blood count (10/22/2024 6:15 AM EDT) [facility] Signature WBC 3.6(L) 4.8 - 10.8 K/mcL LAB [...] 10/22/2024 9:10 AM [facility] NRBC Absolute 0.00 <0.10 K/mcL LAB HEMETOLOGY METHOD 10/22/2024 9:10 AM [facility] Blood Venous blood specimen / Unknown Venipuncture / Unknown 10/22/2024 6:15 AM EDT 10/22/2024 8:58 AM EDT us Araceli Maya MD LAB BLOOD ORDERABLES Fin al Result [facility] [address] [place] [address], * (ABNORMAL) Basic metabolic panel (10/22/2024 6:15 AM EDT) Sodium 137 133 - 145 [...] METHOD 10/22/2024 9:29 AM [facility] eGFR 67 >=60 mL/min/1. 73m2 LAB CHEMISTRY METHOD 10/22/2024 9:29 AM EDT [facility] Comment:Calculation based on the Chronic Kidney Disease Epidemiology Collaboration (CKD-EPI) equation refit without adjustment for race. BUN/Creatinine Ratio 15.7 LAB CHEMISTRY METHOD 10/22/2024 9:29 AM EDT [facility] Calcium 8.5 8.5 - 10.5 mg/dL LAB CHEMISTRY METHOD 10/22/2024 9:29 AM EDT [facility] Blood Venous blood specimen / Unknown Venipuncture / Unknown 10/22/2024 6:15 AM EDT 10/22/2024 8:58 AM EDT us Araceli Maya MD LAB BLOOD ORDERABLES Fin al Result [facility] [address] [place] [address], documented in this encounter Visit Diagnoses Diagnosis Essential (primary) hypertension Unspecified essential hypertension Anemia, unspecified Unspecified osteoarthritis, unspecified site documented in this encounter Care Teams Rail Car Driver Relationship Specialty Start Date End Date Vivian Massey DO [address] [place] [address] PCP - General Internal Medicine 07/21/17 documented as of this encounter
--- OUTSIDE RECORDS SUMMARY | 2024-11-25 09:43 | XMS_ITS | Encounter Summary ---
Author Organization [facility] Address [address] [place] [address] Care Team Providers Care Cell Tower Climber Name Role Phone Vivian Massey Primary Care Provider [phone]- [phone] Encounter Details Date Type Department Care Team ([facility] st Contact Info) Description 10/02/2024 Lab Requisition [facility] - Main Lab [address] [place] [address] Araceli Maya MD [address] [address] Hypokalemia Social History Tobacco Use Types Packs/Day [...] Associated Diagnosis Comments BASIC METABOLIC PANEL Routine 10/03/2024 5:51 AM EDT Hypokalemia documented in this encounter Results * (ABNORMAL) Basic metabolic panel (10/03/2024 5:51 AM EDT) Sodium 138 133 - 145 mmol/L LAB CHEMISTRY METHOD 10/03/2024 8:28 AM EDT [facility] Potassium 3.8 3.5 - 5.5 mmol/L LAB CHEMISTRY METHOD 10/03/2024 8:28 AM [facility] Chloride 101 96 - 110 mmol/L LAB CHEMISTRY METHOD 10/03/2024 8:28 AM [facility] CO2 34(H) 21 - 32 mmol/L LAB CHEMISTRY METHOD 10/03/2024 8:28 AM [facility] Anion Gap 3 3 - 11 LAB CHEMISTRY METHOD 10/03/2024 8:28 AM [facility] Glucose 79 70 - 100 mg/dL LAB CHEMISTRY METHOD 10/03/2024 8:28 AM [facility] BUN 15 5 - 25 mg/dL LAB CHEMISTRY METHOD 10/03/2024 8:28 AM [facility] Creatinine 0.88 0.50 - 1.10 mg/dL LAB CHEMISTRY METHOD 10/03/2024 8:28 AM [facility] eGFR 68 >=60 mL/min/1. 73m2 LAB CHEMISTRY METHOD 10/03/2024 8:28 AM [facility] Comment:Calculation based on the Chronic Kidney Disease Epidemiology Collaboration (CKD-EPI) equation refit without adjustment for race. BUN/Creatinine Ratio 17.0 LAB CHEMISTRY METHOD 10/03/2024 8:28 AM [facility] Calcium 9.1 8.5 - 10.5 mg/dL LAB CHEMISTRY METHOD 10/03/2024 8:28 AM [facility] Blood Venous blood specimen / Unknown Venipuncture / Unknown 10/03/2024 5:51 AM EDT 10/03/2024 7:39 AM EDT us Araceli Maya MD LAB BLOOD ORDERABLES Fin al Result [facility] [address] [place] [address], documented in this encounter Visit Diagnoses Diagnosis Hypokalemia Hypopotassemia documented in this encounter Care Teams Cell Tower Climber Relationship Specialty Start Date End Date Vivian Massey DO [address] [place] [address] PCP - General Internal Medicine 07/21/17 documented as of this encounter
--- OUTSIDE RECORDS SUMMARY | 2024-11-25 09:43 | XMS_ITS | Encounter Summary ---
Author Organization [facility] Address [address] [place] [address] Care Team Providers Care Account Executive Software Sales Name Role Phone Vivian Massey Primary Care Provider +1- [phone] Encounter Details Date Type Department Care Team ([facility] st Contact Info) Description 09/05/2024 Lab Requisition [facility] - Main Lab [address] [place] [address] Araceli Maya MD [address] [address] Hypokalemia Social History Tobacco Use Types Packs/Day [...] Associated Diagnosis Comments BASIC METABOLIC PANEL Routine 09/06/2024 5:51 AM EDT Hypokalemia documented in this encounter Results * (ABNORMAL) Basic metabolic panel (09/06/2024 5:51 AM EDT) Sodium 138 133 - 145 mmol/L LAB CHEMISTRY METHOD 09/06/2024 7:53 AM EDT [facility] Potassium 3.6 3.5 - 5.5 mmol/L LAB CHEMISTRY METHOD 09/06/2024 7:53 AM [facility] Chloride 99 96 - 110 mmol/L LAB CHEMISTRY METHOD 09/06/2024 7:53 AM [facility] CO2 33(H) 21 - 32 mmol/L LAB CHEMISTRY METHOD 09/06/2024 7:53 AM [facility] Anion Gap 6 3 - 11 LAB CHEMISTRY METHOD 09/06/2024 7:53 AM [facility] Glucose 86 70 - 100 mg/dL LAB CHEMISTRY METHOD 09/06/2024 7:53 AM [facility] BUN 12 5 - 25 mg/dL LAB CHEMISTRY METHOD 09/06/2024 7:53 AM [facility] Creatinine 0.83 0.50 - 1.10 mg/dL LAB CHEMISTRY METHOD 09/06/2024 7:53 AM [facility] eGFR 73 >=60 mL/min/1. 73m2 LAB CHEMISTRY METHOD 09/06/2024 7:53 AM [facility] LAB Comment:Calculation based on the Chronic Kidney Disease Epidemiology Collaboration (CKD-EPI) equation refit without adjustment for race. BUN/Creatinine Ratio 14.5 LAB CHEMISTRY METHOD 09/06/2024 7:53 AM [facility] Calcium 9.0 8.5 - 10.5 mg/dL LAB CHEMISTRY METHOD 09/06/2024 7:53 AM [facility] Blood Venous blood specimen / Unknown Venipuncture / Unknown 09/06/2024 5:51 AM EDT 09/06/2024 6:58 AM EDT us Araceli Maya MD LAB BLOOD ORDERABLES Fin al Result [facility] [address] [place] [address], documented in this encounter Visit Diagnoses Diagnosis Hypokalemia Hypopotassemia documented in this encounter Care Teams Account Executive Software Sales Relationship Specialty Start Date End Date Vivian Massey DO [address] [place] [address] PCP - General Internal Medicine 07/21/17 documented as of this encounter
--- OUTSIDE RECORDS SUMMARY | 2024-11-25 09:43 | XMS_ITS | Encounter Summary ---
Author Organization [email or web address] Address [address] [facility] 7[address] [place] [address] Care Team Providers Care Geoscience Professor Name Role Phone Vivian Massey DO Primary Care Provider + [phone] Reason for Visit * Reason Onset Date Comments Nurse Triage 11/22/2024 Encounter Details Date Type Department Care Team ([facility] st Contact Info) Description 11/22/2024 Telephone [facility] [address] [place] [address] Vivian Massey DO [address] [place], [place] [phone] Nurse Triage Social History Tobacco Use Types [...] encounter Miscellaneous Notes * Telephone Encounter - Kate Childs LPN - 11/22/2024 2:25 PM EDT Triage call returned to patient who was seen in ED yesterday. Note in chart. Sent home with Dx of UTI and treatment of Cipro 500mg Q 12 hours for 7 days. Patient reports that she is trying to increase her fluids and that she is incontinent at night. Patient provided some home care for bed protection early in day fluid intake and safety getting up at night. Patient verbalized understanding . Patient had one episode of vomiting and ABT use and completion reinforced and to try medication with small amount of crackers with med. Patient with previously scheduled appt for 11/26/[address] Be. Reviewed with patient reasons to call back. Pt verbalized understanding and agrees. Protocol Used: Urinary Tract Infection on Antibiotic Follow-up Call - Female (Adult) Protocol-Based Disposition: Home Care Positive Triage Question: * Taking antibiotic < 72 hours (3 days) for UTI and painful urination or frequency is SAME (unchanged, not better) * All higher-acuity triage questions were negative Care Advice Discussed: * Reassurance and Education - Urinary Tract Infection * Drink Extra Fluids * Fever Medicines * Reasons To Call Back - Urine symptoms do not improve after taking 3 days of antibiotics - You become worse * Telephone Encounter - Shweta Charly Keys - 11/22/2024 2:07 PM EDT Symptom: Urination Pain Outcome: Schedule an urgent appointment (within 1 hour) or talk to a nurse or provider soon Reason: Severe pain now The caller accepted this outcome. Contact pt at [phone] documented in this encounter Plan of Treatment Upcoming Encounters Date Type Department Care Team (Late st Contact Info) Description 11/26/2024 10:45 AM EDT Office Visit [facility] [address] [place] [address] Clara Iverson MD [address] [place] [address] documented as of this encounter Visit Diagnoses Not on filedocumented in this encounter Additional Health Concerns Assessment Noted Time PHQ-9 Depression Total Score: 10 024 9:35 AM EDT documented as of this encounter Care Teams Geoscience Professor Relationship Specialty Start Date End Date Vivian Massey DO [address] [place] [address] PCP - General Family Medicine 07/27/20 documented as of this encounter
--- OUTSIDE RECORDS SUMMARY | 2024-11-25 09:43 | XMS_ITS | Encounter Summary ---
Author Organization [facility] Address [address] [place] [address] Care Team Providers Care Stringed Instrument Tuner Name Role Phone Vivian Massey DO Primary Care Provider +1- [phone] Encounter Details Date Type Department Care Team (Late st Contact Info) Description 09/09/2024 Lab Requisition [facility] - Main Lab 299 [facility] [place] [address] Araceli Maya MD [address] [phone] Essential (primary) hypertension; Anemia, unspecified; Unspecified osteoarthritis, [...] Associated Diagnosis Comments COMPLETE BLOOD COUNT Routine 09/10/2024 6:14 AM EDT Essential (primary) hypertension Anemia, unspecified Unspecified osteoarthritis, unspecified site BASIC METABOLIC PANEL Routine 09/10/2024 6:14 AM EDT Essential (primary) hypertension Anemia, unspecified Unspecified osteoarthritis, unspecified site documented in this encounter Results * (ABNORMAL) Complete blood count (09/10/2024 6:14 AM EDT) [facility] Signature WBC 4.6(L) 4.8 - 10.8 K/mcL LAB HEMETOLOGY METHOD 09/10/2024 8:[address] [facility] RBC 3.50(L) 3.80 - 4.80 M/mcL LAB HEMETOLOGY METHOD 09/10/2024 8:[address] [facility] Hemoglobin 10.9(L) 11.5 - 16.0 g/dL LAB HEMETOLOGY METHOD 09/10/2024 8:[address] [facility] Hematocrit 34.1(L) 35.0 - 47.0 % LAB HEMETOLOGY METHOD 09/10/2024 8:[address] [facility] MCV 98.0 79.0 - 98.0 FL LAB HEMETOLOGY METHOD 09/10/2024 8:[address] [facility] MCH 31.3 27.0 - 32.0 pcg LAB HEMETOLOGY METHOD 09/10/2024 8:[address] [facility] MCHC 32.0 32.0 - 37.0 g/dL LAB HEMETOLOGY METHOD 09/10/2024 8:[address] [facility] RDW 14.4 11.0 - 15.0 % LAB HEMETOLOGY METHOD 09/10/2024 8:[address] [facility] Platelets 239 130 - 400 K/mcL LAB HEMETOLOGY METHOD 09/10/2024 8:[address] [facility] MPV 9.1 7.0 - 11.0 FL LAB HEMETOLOGY METHOD 09/10/2024 8:[address] [facility] NRBC 0.0 <1.0 % LAB HEMETOLOGY METHOD 09/10/2024 8:[address] [facility] NRBC Absolute 0.00 <0.10 K/mcL LAB HEMETOLOGY METHOD 09/10/2024 8:[address] [facility] Blood Venous blood specimen / Unknown Venipuncture / Unknown 09/10/2024 6:14 AM EDT 09/10/2024 7:30 AM EDT us Araceli Maya MD LAB BLOOD ORDERABLES Fin al Result [facility] [address] [place] [address], [place] [phone] * (ABNORMAL) Basic metabolic panel (09/10/2024 6:14 AM EDT) Sodium 138 133 - 145 mmol/L LAB CHEMISTRY METHOD 09/10/2024 8:[address] [facility] Potassium 3.6 3.5 - 5.5 mmol/L LAB CHEMISTRY METHOD 09/10/2024 8:[address] [facility] Chloride 100 96 - 110 mmol/L LAB CHEMISTRY METHOD 09/10/2024 8:[address] [facility] CO2 33(H) 21 - 32 mmol/L LAB CHEMISTRY METHOD 09/10/2024 8:[address] [facility] Anion Gap 5 3 - 11 LAB CHEMISTRY METHOD 09/10/2024 8:[address] [facility] Glucose 86 70 - 100 mg/dL LAB CHEMISTRY METHOD 09/10/2024 8:[address] [facility] BUN 18 5 - 25 mg/dL LAB CHEMISTRY METHOD 09/10/2024 8:[address] [facility] Creatinine 0.81 0.50 - 1.10 mg/dL LAB CHEMISTRY METHOD 09/10/2024 8:[address] [facility] eGFR 75 >=60 mL/min/1. 73m2 LAB CHEMISTRY METHOD 09/10/2024 8:28 AM EDT [facility] Comment:Calculation based on the Chronic Kidney Disease Epidemiology Collaboration (CKD-EPI) equation refit without adjustment for race. BUN/Creatinine Ratio 22.2 LAB CHEMISTRY METHOD 09/10/2024 8:28 AM EDT [facility] Calcium 8.5 8.5 - 10.5 mg/dL LAB CHEMISTRY METHOD 09/10/2024 8:28 AM EDT [facility] Blood Venous blood specimen / Unknown Venipuncture / Unknown 09/10/2024 6:14 AM EDT 09/10/2024 7:30 AM EDT us Araceli Maya MD LAB BLOOD ORDERABLES Fin al Result [facility] [address] [place] [address], documented in this encounter Visit Diagnoses Diagnosis Essential (primary) hypertension Unspecified essential hypertension Anemia, unspecified Unspecified osteoarthritis, unspecified site documented in this encounter Care Teams Stringed Instrument Tuner Relationship Specialty Start Date End Date Vivian Massey DO [address] [place] [address] PCP - General Internal Medicine 07/21/17 documented as of this encounter
--- OUTSIDE RECORDS SUMMARY | 2024-11-25 09:43 | XMS_ITS | Clinical Summary ---
Author Organization [employer] Address [address] [facility] [address] [place] [address] Care Team Providers Care Tank Wagon Operator Name Role Phone Shilpa Vivian Primary Care Provider + [phone] Allergies Active Allergy Reactions Criticality Noted Date [...] requested -f/u with PM prn -advised contact [facility] if sx worsen Healthcare maintenance 07/06/2023 Assessment [...] eval JUN 2022 for annual f/u at [facility], review next visit S/P total knee replacement, [...] (07/06/2023 3:07 PM EDT): s/p fosamax tx [id number] with subsequent vertebral fracture -DEXA with osteoporosis [...] be a trigger. Pt was self-referred to [facility] in [place], declined OP referral. clinician engaged patient with [...] severity of sxs. She was provided with [facility] information, pt declined same-day referrals. clinician will follow-up during next medical appointment. 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 06/20/2022 09/27/2022 Hypertensive disorder 02/17/20222022 Anterior knee pain 08/14/2017 Encounters Date Type Department Care Team Description 11/22/[address] [address] Vivian Massey DO Nurse Triage 11/21/2024 Orders Only [facility] External Provider, [facility] 11/07/[address] [address] Stephanie Mahajan MD No Show 11/07/[address] [address] Vivian Massey DO Appointment Request 10/25/[address] [address] Vivian Massey DO Verbal order 10/24/2024 Patient Outreach [address] [address] Vivian Massey DO Transition Of Care (Tcm) [...] Description 11/26/2024 10:45 AM EDT Office Visit [facility]ICINE [address] [place] [address] Clara Iverson MD [address] [place] [address] Health Maintenance Due Date Last Done Comments Alcohol/Substance Use Screening 1960 Hepatitis C Screening 1966 Zoster Vaccines (2 of 3) 11/24/2016 09/29/2016 RSV Patients and Patients Aged 60 years or older (1 - 1-dose 75+ series) 2023 Depression Monitoring 06/09/2024 12/11/2023, 024 SDOH Screening 07/05/2024 07/06/2023 COVID-19 Vaccine (3 - season) 2024 07/13/2020, 06/15/2020 Influenza Vaccine (#1) [...] PM EDT Narrative 11/21/2024 3:30 PM EDT [address] [address] XRay Report Signed Patient: Jennifer Whitehead I MR#: [id number] 4 : 1950 Acct:[id number] Age/Sex: 74 / F ADM Date: 11/21/24 Loc: HO.ED Attending Dr: Ordering Physician: Christine Espino DO Date of Service: 11/21/24 Procedure(s): XR chest 2V Accession Number(s): [id number] cc: Christine sEpino DO; Vivian Massey DO Reason for Exam: [...] 11/21/24 1527 DD/ 1511 TD/TT: 11/21/24 1516 Linen Room Attendant: Procedure Note Donotuseinterpreter, Image - 11/21/[address] [address] XRay Report Signed Patient: Jennifer Whitehead IMR#: [id number] 4 : 9Acct:[id number] Age/Sex: 74 / FADM Date: 11/21/24 Loc: HO.ED Attending Dr: Ordering Physician: Christine Espino DO Date of Service: 11/21/24 Procedure(s): XR chest 2V Accession Number(s): [id number] cc: Christine Espino DO; Vivian Massey DO [...] 11/21/24 1527 DD/ 1511 TD/TT: 11/21/24 1516 Linen Room Attendant: [facility] External Provider IMG XR PROCEDURES Final Result * Lipid Panel, Standard (07/06/2023 11:26 AM EDT) Triglycerides 83 <150 mg/dL [facility] Comment:Desirable Triglyceri de: less than 150 mg/dLBorderline High Triglyceride 150-199 mg/dLHigh Triglyceride: 200-499 mg/dLVery High Triglyceride: greater than or equal to 5OO mg/dL Cholesterol 132 <200 mg/dL [facility] Comment:Desirable Cholestero l: less than 200 mg/dLBorderline High Cholesterol: 200-239 mg/dLHigh Cholesterol: greater than 239 mg/dL LDL Cholesterol Calculated 57 <100 mg/dL [facility] Comment:Desirable LDL: less than 100 mg/dLNear Optimal/Above Optimal LDL: 110- 129 mg/dLBorderline High LDL: 130-159 mg/dLHigh LDL: 160-189 mg/dLVery High LDL: greater than or equal to 190 mg/dL HDL Cholesterol 59 >40 mg/dL [facility] Comment:Desirable HDL: great er than 40 mg/dL Note: This HDL assay may give artificially low results in patients with liver disease. Blood Venous blood specimen / Unknown 07/06/2023 11:26 AM EDT 07/06/2023 1:28 PM EDT us Vivian Massey DO LAB BLOOD ORDERABLES Final R esult [facility] [address] [place] [address] [phone] from Last 3 Months or Most Recently Relevant to Health Maintenance Insurance [facility] [employer]AGE Care Teams Tank Wagon Operator Relationship Specialty Start Date End Date Vivian Massey DO [address] [place] [address] PCP - General Family Medicine 07/27/20
--- OUTSIDE RECORDS SUMMARY | 2024-11-25 09:43 | XMS_ITS | Encounter Summary ---
Author Organization [facility] Address [address] [place] [address] Care Team Providers Care Borematic Machine Operator Name Role Phone Vivian Massey DO Primary Care Provider [phone]- [phone] Encounter Details Date Type Department Care Team (Late st Contact Info) Description 09/30/2024 Lab Requisition [facility] - Main Lab [address] [facility] [place] [address] Araceli Maya MD [address] [phone] Essential (primary) hypertension; Anemia, unspecified; Unspecified osteoarthritis, [...] Associated Diagnosis Comments COMPLETE BLOOD COUNT Routine 10/01/2024 5:36 AM EDT Essential (primary) hypertension Anemia, unspecified Unspecified osteoarthritis, unspecified site BASIC METABOLIC PANEL Routine 10/01/2024 5:36 AM EDT Essential (primary) hypertension Anemia, unspecified Unspecified osteoarthritis, unspecified site documented in this encounter Results * (ABNORMAL) Complete blood count (10/01/2024 5:36 AM EDT) [facility] WBC 4.2(L) 4.8 - 10.8 K/mcL LAB HEMETOLOGY METHOD 10/01/2024 7:51 AM [facility] RBC 3.40(L) 3.80 - 4.80 M/mcL LAB HEMETOLOGY METHOD 10/01/2024 7:51 AM [facility] Hemoglobin 10.8(L) 11.5 - 16.0 g/dL LAB HEMETOLOGY METHOD 10/01/2024 7:51 AM [facility] Hematocrit 33.5(L) 35.0 - 47.0 % LAB HEMETOLOGY METHOD 10/01/2024 7:51 AM [facility] MCV 97.7 79.0 - 98.0 FL LAB HEMETOLOGY METHOD 10/01/2024 7:51 AM [facility] MCH 31.5 27.0 - 32.0 pcg LAB HEMETOLOGY METHOD 10/01/2024 7:51 AM [facility] MCHC 32.2 32.0 - 37.0 g/dL LAB HEMETOLOGY METHOD 10/01/2024 7:51 AM [facility] RDW 14.5 11.0 - 15.0 % LAB HEMETOLOGY METHOD 10/01/2024 7:51 AM [facility] Platelets 243 130 - 400 K/mcL LAB HEMETOLOGY METHOD 10/01/2024 7:51 AM [facility] MPV 9.4 7.0 - 11.0 FL LAB HEMETOLOGY METHOD 10/01/2024 7:51 AM [facility] NRBC 0.0 <1.0 % LAB HEMETOLOGY METHOD 10/01/2024 7:51 AM [facility] NRBC Absolute 0.00 <0.10 K/mcL LAB HEMETOLOGY METHOD 10/01/2024 7:51 AM [facility] Blood Venous blood specimen / Unknown Venipuncture / Unknown 10/01/2024 5:36 AM EDT 10/01/2024 6:57 AM EDT us Araceli Maya MD LAB BLOOD ORDERABLES Fin al Result [facility] [address] [place] [address], [place] [phone] * (ABNORMAL) Basic metabolic panel (10/01/2024 5:36 AM EDT) Sodium 138 133 - 145 mmol/L LAB CHEMISTRY METHOD 10/01/2024 8:12 AM [facility] Potassium 3.3(L) 3.5 - 5.5 mmol/L LAB CHEMISTRY METHOD 10/01/2024 8:12 AM [facility] Chloride 100 96 - 110 mmol/L LAB CHEMISTRY METHOD 10/01/2024 8:12 AM [facility] CO2 32 21 - 32 mmol/L LAB CHEMISTRY METHOD 10/01/2024 8:12 AM [facility] Anion Gap 6 3 - 11 LAB CHEMISTRY METHOD 10/01/2024 8:12 AM [facility] Glucose 82 70 - 100 mg/dL LAB CHEMISTRY METHOD 10/01/2024 8:12 AM [facility] BUN 14 5 - 25 mg/dL LAB CHEMISTRY METHOD 10/01/2024 8:12 AM [facility] Creatinine 0.81 0.50 - 1.10 mg/dL LAB CHEMISTRY METHOD 10/01/2024 8:12 AM [facility] eGFR 75 >=60 mL/min/1. 73m2 LAB CHEMISTRY METHOD 10/01/2024 8:12 AM EDT [facility] Comment:Calculation based on the Chronic Kidney Disease Epidemiology Collaboration (CKD-EPI) equation refit without adjustment for race. BUN/Creatinine Ratio 17.3 LAB CHEMISTRY METHOD 10/01/2024 8:12 AM EDT [facility] Calcium 8.8 8.5 - 10.5 mg/dL LAB CHEMISTRY METHOD 10/01/2024 8:12 AM EDT [facility] Blood Venous blood specimen / Unknown Venipuncture / Unknown 10/01/2024 5:36 AM EDT 10/01/2024 6:57 AM EDT us Araceli Maya MD LAB BLOOD ORDERABLES Fin al Result [facility] [address] [place] [address], documented in this encounter Visit Diagnoses Diagnosis Essential (primary) hypertension Unspecified essential hypertension Anemia, unspecified Unspecified osteoarthritis, unspecified site documented in this encounter Care Teams Borematic Machine Operator Relationship Specialty Start Date End Date Vivian Massey DO [address] [place] [address] PCP - General Internal Medicine 07/21/17 documented as of this encounter
--- OUTSIDE RECORDS SUMMARY | 2024-11-25 09:43 | XMS_ITS | Encounter Summary ---
Author Organization [employer] Address [address] [facility] [address] [place] [address] Care Team Providers Care Talent Scout Name Role Phone Vivian Massey DO Primary Care Provider [phone]- [phone] Reason for Visit * Reason Onset Date Comments Prior Authorization 06/20/2022 Encounter Details Date Type Department Care Team ([facility] st Contact Info) Description 06/20/2022 Telephone [facility] MED[facility]INE [address] [place] [address] Vivian Massey DO [address] [place], [place] [phone] Prior Authorization Social History Tobacco Use Types [...] requesting medication tretinoin (Retin-A) 0.025 % cream. Jig Maker spoke with pharmacy and a PA is needed . documented in this encounter Plan of Treatment Upcoming Encounters Date Type Department Care Team (Late st Contact Info) Description 11/26/2024 10:45 AM EDT Office Visit [facility] [address] [place], [place] [phone] Clara Iverson MD [address] [place] [address] documented as of this encounter Visit Diagnoses Not on filedocumented in this encounter Additional Health Concerns Assessment Noted Time PHQ-9 Depression Total Score: 9 06/17/19 23 4:09 PM EDT documented as of this encounter Care Teams Talent Scout Relationship Specialty Start Date End Date Vivian Massey DO [address] [place] [address] PCP - General Family Medicine 07/27/20 documented as of this encounter
--- OUTSIDE RECORDS SUMMARY | 2024-11-25 09:43 | XMS_ITS | Encounter Summary ---
Author Organization [facility] Address [address] [place] [address] Care Team Providers Care Hat Marker Name Role Phone Vivian Massey DO Primary Care Provider [phone]- [phone] Encounter Details Date Type Department Care Team (Late st Contact Info) Description 08/26/2024 Lab Requisition [facility] - Main Lab 299 [facility] [place] [address] Araceli Maya MD [address] [phone] Essential (primary) hypertension; Anemia, unspecified; Unspecified osteoarthritis, [...] Associated Diagnosis Comments COMPLETE BLOOD COUNT Routine 08/27/2024 6:06 AM EDT Essential (primary) hypertension Anemia, unspecified Unspecified osteoarthritis, unspecified site BASIC METABOLIC PANEL Routine 08/27/2024 6:06 AM EDT Essential (primary) hypertension Anemia, unspecified Unspecified osteoarthritis, unspecified site documented in this encounter Results * (ABNORMAL) Complete blood count (08/27/2024 6:06 AM EDT) [facility] WBC 3.2(L) 4.8 - 10.8 K/mcL LAB HEMETOLOGY METHOD 08/27/2024 8:13 AM [facility] RBC 3.80 3.80 - 4.80 M/mcL LAB HEMETOLOGY METHOD 08/27/2024 8:13 AM [facility] Hemoglobin 11.8 11.5 - 16.0 g/dL LAB HEMETOLOGY METHOD 08/27/2024 8:13 AM [facility] Hematocrit 36.4 35.0 - 47.0 % LAB HEMETOLOGY METHOD 08/27/2024 8:13 AM [facility] MCV 95.5 79.0 - 98.0 FL LAB HEMETOLOGY METHOD 08/27/2024 8:13 AM [facility] MCH 31.0 27.0 - 32.0 pcg LAB HEMETOLOGY METHOD 08/27/2024 8:13 AM [facility] MCHC 32.4 32.0 - 37.0 g/dL LAB HEMETOLOGY METHOD 08/27/2024 8:13 AM [facility] RDW 14.0 11.0 - 15.0 % LAB HEMETOLOGY METHOD 08/27/2024 8:13 AM [facility] Platelets 259 130 - 400 K/mcL LAB HEMETOLOGY METHOD 08/27/2024 8:13 AM [facility] MPV 9.2 7.0 - 11.0 FL LAB HEMETOLOGY METHOD 08/27/2024 8:13 AM [facility] NRBC 0.0 <1.0 % LAB HEMETOLOGY METHOD 08/27/2024 8:13 AM [facility] NRBC Absolute 0.00 <0.10 K/mcL LAB HEMETOLOGY METHOD 08/27/2024 8:13 AM [facility] Blood Venous blood specimen / Unknown Venipuncture / Unknown 08/27/2024 6:06 AM EDT 08/27/2024 7:07 AM EDT us Araceli Maya MD LAB BLOOD ORDERABLES Fin al Result [facility] [address] [place] [address], [place] [phone] * (ABNORMAL) Basic metabolic panel (08/27/2024 6:06 AM EDT) Sodium 137 133 - 145 mmol/L LAB CHEMISTRY METHOD 08/27/2024 8:42 AM [facility] Potassium 3.9 3.5 - 5.5 mmol/L LAB CHEMISTRY METHOD 08/27/2024 8:42 AM [facility] Chloride 97 96 - 110 mmol/L LAB CHEMISTRY METHOD 08/27/2024 8:42 AM [facility] CO2 34(H) 21 - 32 mmol/L LAB CHEMISTRY METHOD 08/27/2024 8:42 AM [facility] Anion Gap 6 3 - 11 LAB CHEMISTRY METHOD 08/27/2024 8:42 AM [facility] Glucose 83 70 - 100 mg/dL LAB CHEMISTRY METHOD 08/27/2024 8:42 AM [facility] BUN 13 5 - 25 mg/dL LAB CHEMISTRY METHOD 08/27/2024 8:42 AM [facility] Creatinine 0.86 0.50 - 1.10 mg/dL LAB CHEMISTRY METHOD 08/27/2024 8:42 AM [facility] eGFR 70 >=60 mL/min/1. 73m2 LAB CHEMISTRY METHOD 08/27/2024 8:42 AM EDT [facility] Comment:Calculation based on the Chronic Kidney Disease Epidemiology Collaboration (CKD-EPI) equation refit without adjustment for race. BUN/Creatinine Ratio 15.1 LAB CHEMISTRY METHOD 08/27/2024 8:42 AM EDT [facility] Calcium 8.5 8.5 - 10.5 mg/dL LAB CHEMISTRY METHOD 08/27/2024 8:42 AM EDT [facility] Blood Venous blood specimen / Unknown Venipuncture / Unknown 08/27/2024 6:06 AM EDT 08/27/2024 7:07 AM EDT us Araceli Maya MD LAB BLOOD ORDERABLES Fin al Result [facility] [address] [place] [address], documented in this encounter Visit Diagnoses Diagnosis Essential (primary) hypertension Unspecified essential hypertension Anemia, unspecified Unspecified osteoarthritis, unspecified site documented in this encounter Care Teams Hat Marker Relationship Specialty Start Date End Date Vivian Massey DO [address] [place] [address] PCP - General Internal Medicine 07/21/17 documented as of this encounter
--- OUTSIDE RECORDS SUMMARY | 2024-11-25 09:43 | XMS_ITS | Clinical Summary ---
Author Organization [facility] Address [address] [place] [address] Care Team Providers Care Cardiology Teacher Name Role Phone Vidal Pinzon MD Primary Care Provider [phone] Medications Medication Sig Dispensed Refills Start Date [...] age to complete this topic Care Teams Cardiology Teacher Relationship Specialty Start Date End Date Vidal Pinzon MD [address] [facility] [address] PCP - General Family Medicine 02/18/20
--- OUTSIDE RECORDS SUMMARY | 2024-11-25 09:43 | XMS_ITS | Encounter Summary ---
Author Organization [facility] Address [address] [place] [address] Care Team Providers Care Program Specialist Name Role Phone Vivian Massey DO Primary Care Provider [phone]- [phone] Encounter Details Date Type Department Care Team ([facility] st Contact Info) Description 09/03/2024 Lab Requisition [facility] - Main Lab [address] [facility] [place] [address] Araceli Maya MD [address] [phone] Essential (primary) hypertension; Anemia, unspecified; Unspecified osteoarthritis, [...] Associated Diagnosis Comments COMPLETE BLOOD COUNT Routine 09/03/2024 6:42 AM EDT Essential (primary) hypertension Anemia, unspecified Unspecified osteoarthritis, unspecified site BASIC METABOLIC PANEL Routine 09/03/2024 6:42 AM EDT Essential (primary) hypertension Anemia, unspecified Unspecified osteoarthritis, unspecified site documented in this encounter Results * (ABNORMAL) Basic metabolic panel (09/03/2024 6:42 AM EDT) Sodium 141 133 - 145 mmol/L LAB CHEMISTRY METHOD 09/03/2024 11:[address] [facility] Potassium 3.2(L) 3.5 - 5.5 mmol/L LAB CHEMISTRY METHOD 09/03/2024 11:[address] [facility] Chloride 100 96 - 110 mmol/L LAB CHEMISTRY METHOD 09/03/2024 11:[address] [facility] CO2 33(H) 21 - 32 mmol/L LAB CHEMISTRY METHOD 09/03/2024 11:[address] [facility] Anion Gap 8 3 - 11 LAB CHEMISTRY METHOD 09/03/2024 11:[address] [facility] Glucose 84 70 - 100 mg/dL LAB CHEMISTRY METHOD 09/03/2024 11:[address] [facility] BUN 15 5 - 25 mg/dL LAB CHEMISTRY METHOD 09/03/2024 11:[address] [facility] Creatinine 0.89 0.50 - 1.10 mg/dL LAB CHEMISTRY METHOD 09/03/2024 11:[address] [facility] eGFR 67 >=60 mL/min/1. 73m2 LAB CHEMISTRY METHOD 09/03/2024 11:[address] [facility] Comment:Calculation based on the Chronic Kidney Disease Epidemiology Collaboration (CKD-EPI) equation refit without adjustment for race. BUN/Creatinine Ratio 16.9 LAB CHEMISTRY METHOD 09/03/2024 11:[address] [facility] Calcium 8.8 8.5 - 10.5 mg/dL LAB CHEMISTRY METHOD 09/03/2024 11:[address] [facility] Blood Venous blood specimen / Unknown Venipuncture / Unknown 09/03/2024 6:42 AM EDT 09/03/2024 9:10 AM EDT us Araceli Maya MD LAB BLOOD ORDERABLES Fin al Result [facility] [address] [place] [address], * (ABNORMAL) Complete blood count (09/03/2024 6:42 AM EDT) WBC 4.7(L) 4.8 - 10.8 K/mcL LAB HEMETOLOGY METHOD 09/03/2024 10:[address] [facility] RBC 3.50(L) 3.80 - 4.80 M/mcL LAB HEMETOLOGY METHOD 09/03/2024 10:[address] [facility] Hemoglobin 10.8(L) 11.5 - 16.0 g/dL LAB HEMETOLOGY METHOD 09/03/2024 10:[address] [facility] Hematocrit 34.4(L) 35.0 - 47.0 % LAB HEMETOLOGY METHOD 09/03/2024 10:[address] [facility] MCV 97.2 79.0 - 98.0 FL LAB HEMETOLOGY METHOD 09/03/2024 10:[address] [facility] MCH 30.5 27.0 - 32.0 pcg LAB HEMETOLOGY METHOD 09/03/2024 10:[address] [facility] MCHC 31.4(L) 32.0 - 37.0 g/dL LAB HEMETOLOGY METHOD 09/03/2024 10:[address] [facility] RDW 13.9 11.0 - 15.0 % LAB HEMETOLOGY METHOD 09/03/2024 10:[address] [facility] Platelets 253 130 - 400 K/mcL LAB HEMETOLOGY METHOD 09/03/2024 10:[address] [facility] MPV 9.1 7.0 - 11.0 FL LAB HEMETOLOGY METHOD 09/03/2024 10:[address] [facility] NRBC 0.0 <1.0 % LAB HEMETOLOGY METHOD 09/03/2024 10:[address] [facility] NRBC Absolute 0.00 <0.10 K/mcL LAB HEMETOLOGY METHOD 09/03/2024 10:[address] [facility] Blood Venous blood specimen / Unknown Venipuncture / Unknown 09/03/2024 6:42 AM EDT 09/03/2024 9:10 AM EDT us Araceli Maya MD LAB BLOOD ORDERABLES Fin al Result [facility] [address] [place] [address], documented in this encounter Visit Diagnoses Diagnosis Essential (primary) hypertension Unspecified essential hypertension Anemia, unspecified Unspecified osteoarthritis, unspecified site documented in this encounter Care Teams Program Specialist Relationship Specialty Start Date End Date Vivian Massey DO [address] [place] [address] PCP - General Internal Medicine 07/21/17 documented as of this encounter
--- OUTSIDE RECORDS SUMMARY | 2024-11-25 09:43 | XMS_ITS | Encounter Summary ---
Author Organization [facility] Address [address] [place] [address] Care Team Providers Care Hand Shoe Cutter Name Role Phone Vivian Massey Primary Care Provider +1- [phone] Encounter Details Date Type Department Care Team ([facility] st Contact Info) Description 10/07/[address] [facility] - Main Lab 299 [facility] [place] [address] Araceli Maya MD [address] [phone] Urinary tract infection, site not specified Social History Tobacco Use Types Packs/Day Years [...] Procedure Name Priority Date/Time Associated Diagnosis Comments URINALYSIS WITH REFLEX MICROSCOPIC Routine 10/06/2024 8:10 AM EDT Urinary tract infection, site not specified URINALYSIS WITH REFLEX MICROSCOPIC Routine 10/06/2024 8:10 AM EDT Urinary tract infection, site not specified CULTURE URINE Routine 10/06/2024 8:10 AM EDT Urinary tract infection, site not specified documented in this encounter Results * (ABNORMAL) Urinalysis with reflex microscopic (10/06/2024 8:10 AM EDT) Specific [place] Urine 1.022 1.003 - 1.030 LAB URINALYSIS - AUTOMATED METHOD 10/07/2024 12:13 PM [facility] pH, Urine 7.0 5.0 - 8.0 pH LAB URINALYSIS - AUTOMATED METHOD 10/07/2024 12:13 PM [facility] Leukocytes, Urine Large(A) Negative LAB URINALYSIS - AUTOMATED METHOD 10/07/2024 12:13 PM [facility] Nitrite, Urine Positive(A) Negative LAB URINALYSIS - AUTOMATED METHOD 10/07/2024 12:13 PM [facility] Protein, Urine 100(A) <=Trace mg/dL LAB URINALYSIS - AUTOMATED METHOD 10/07/2024 12:13 PM [facility] Glucose, Urine Negative Negative mg/dL LAB URINALYSIS - AUTOMATED METHOD 10/07/2024 12:13 PM [facility] Ketones, Urine Trace(A) Negative mg/dL LAB URINALYSIS - AUTOMATED METHOD 10/07/2024 12:13 PM [facility] Urobilinogen , Urine 1.0 0.2 - 1.0 mg/dL LAB URINALYSIS - AUTOMATED METHOD 10/07/2024 12:13 PM [facility] Bilirubin, Urine Negative Negative LAB URINALYSIS - AUTOMATED METHOD 10/07/2024 12:13 PM [facility] Blood, Urine Large(A) Negative LAB URINALYSIS - AUTOMATED METHOD 10/07/2024 12:13 PM [facility] RBC, Urine 20.0(H) 0 - 4 /HPF LAB URINALYSIS - AUTOMATED METHOD 10/07/2024 12:13 PM [facility] WBC, Urine 212.9(H) 0 - 4 /HPF LAB URINALYSIS - AUTOMATED METHOD 10/07/2024 12:13 PM EDT [facility] Squamous Epithelial, Urine 70(H) 0 - 60 /LPF LAB URINALYSIS - AUTOMATED METHOD 10/07/2024 12:13 PM EDT [facility] Non-Squamous Epithelial, Urine 2-5 TRANSITIONAL EPI /LPF LAB URINALYSIS - AUTOMATED METHOD 10/07/2024 12:13 PM EDT [facility] Crystals, Urine MOD CALCIUM OXALATE /LPF LAB URINALYSIS - AUTOMATED METHOD 10/07/2024 12:13 PM EDT [facility] Bacteria, Urine Moderate(A) Negative /HPF LAB URINALYSIS - AUTOMATED METHOD 10/07/2024 12:13 PM EDT [facility] Hyaline Casts, Urine 1.6 0 - 3 /LPF LAB URINALYSIS - AUTOMATED METHOD 10/07/2024 12:13 PM [facility] Urine Urine specimen obtained by clean catch procedure / Unknown Non-blood Collection / Unknown 10/06/2024 8:10 AM EDT 10/07/2024 11:17 AM EDT Araceli Maya MD LAB URINE ORDERABLES Fin al Result [facility] [address] [place] [address], * (ABNORMAL) Culture urine (10/06/2024 8:10 AM EDT) Culture, Urine >=100,000 CFU/mL Escherichia coli(A) RADHAMES 10/10/2024 7:49 AM EDT [facility] Comment: This is an edited result. Previous organism was Gram negative bacilli on 10/08/2024 at 0843 EDT. Culture, Urine 10,000-49,000 CFU/mL Morganella morganii ssp morganii(A) RADHAMES 10/10/2024 7:49 AM EDT [facility] Comment: The organism value for this [...] MICROBIOLOGY - GENER AL ORDERABLES Final Result [facility] [address] [place] [address], documented in this encounter Visit Diagnoses Diagnosis Urinary tract infection, site not specified documented in this encounter Care Teams Hand Shoe Cutter Relationship Specialty Start Date End Date Vivian Massey DO [address] [place] [address] PCP - General Internal Medicine 07/21/17 documented as of this encounter
--- OUTSIDE RECORDS SUMMARY | 2024-11-25 09:43 | XMS_ITS | Encounter Summary ---
Author Organization [facility] Address [address] [place] [address] Care Team Providers Care Director Medical Writing Name Role Phone Vivian Massey DO Primary Care Provider +1- [phone] Encounter Details Date Type Department Care Team (Late st Contact Info) Description 07/22/2024 Lab Requisition [facility] - Main Lab 299 [facility] [place] [address] Araceli Maya MD [address] [phone] Essential (primary) hypertension; Anemia, unspecified; Unspecified osteoarthritis, [...] Associated Diagnosis Comments COMPLETE BLOOD COUNT Routine 07/23/2024 7:15 AM EDT Essential (primary) hypertension Anemia, unspecified Unspecified osteoarthritis, unspecified site BASIC METABOLIC PANEL Routine 07/23/2024 7:15 AM EDT Essential (primary) hypertension Anemia, unspecified Unspecified osteoarthritis, unspecified site documented in this encounter Results * (ABNORMAL) Basic metabolic panel (07/23/2024 7:15 AM EDT) Sodium 130(L) 133 - 145 mmol/L LAB CHEMISTRY METHOD 07/23/2024 10:46 AM [facility] Potassium 3.6 3.5 - 5.5 mmol/L LAB CHEMISTRY METHOD 07/23/2024 10:46 AM [facility] Chloride 92(L) 96 - 110 mmol/L LAB CHEMISTRY METHOD 07/23/2024 10:46 AM [facility] CO2 31 21 - 32 mmol/L LAB CHEMISTRY METHOD 07/23/2024 10:46 AM [facility] Anion Gap 7 3 - 11 LAB CHEMISTRY METHOD 07/23/2024 10:46 AM [facility] Glucose 82 70 - 100 mg/dL LAB CHEMISTRY METHOD 07/23/2024 10:46 AM [facility] BUN 19 5 - 25 mg/dL LAB CHEMISTRY METHOD 07/23/2024 10:46 AM [facility] Creatinine 0.84 0.50 - 1.10 mg/dL LAB CHEMISTRY METHOD 07/23/2024 10:46 AM [facility] eGFR 72 >=60 mL/min/1. 73m2 LAB CHEMISTRY METHOD 07/23/2024 10:46 AM [facility] Comment:Calculation based on the Chronic Kidney Disease Epidemiology Collaboration (CKD-EPI) equation refit without adjustment for race. BUN/Creatinine Ratio 22.6 LAB CHEMISTRY METHOD 07/23/2024 10:46 AM [facility] Calcium 8.8 8.5 - 10.5 mg/dL LAB CHEMISTRY METHOD 07/23/2024 10:46 AM [facility] Blood Venous blood specimen / Unknown Venipuncture / Unknown 07/23/2024 7:15 AM EDT 07/23/2024 10:01 AM EDT us Araceli Maya MD LAB BLOOD ORDERABLES Fin al Result [facility] [address] [place] [address], * (ABNORMAL) Complete blood count (07/23/2024 7:15 AM EDT) WBC 4.5(L) 4.8 - 10.8 K/mcL LAB HEMETOLOGY METHOD 07/23/2024 10:27 AM EDT [facility] RBC 3.70(L) 3.80 - 4.80 M/mcL LAB HEMETOLOGY METHOD 07/23/2024 10:27 AM EDT [facility] Hemoglobin 11.5 11.5 - 16.0 g/dL LAB HEMETOLOGY METHOD 07/23/2024 10:27 AM EDT [facility] Hematocrit 35.2 35.0 - 47.0 % LAB HEMETOLOGY METHOD 07/23/2024 10:27 AM EDT [facility] MCV 95.7 79.0 - 98.0 FL LAB HEMETOLOGY METHOD 07/23/2024 10:27 AM EDT [facility] MCH 31.3 27.0 - 32.0 pcg LAB HEMETOLOGY METHOD 07/23/2024 10:27 AM EDT [facility] MCHC 32.7 32.0 - 37.0 g/dL LAB HEMETOLOGY METHOD 07/23/2024 10:27 AM EDT [facility] RDW 13.5 11.0 - 15.0 % LAB HEMETOLOGY [facility]24 [facility] Platelets 287 130 - 400 K/mcL LAB HEMETOLOGY METHOD 07/23/2024 10:27 AM EDT [facility] MPV 9.3 7.0 - 11.0 FL LAB HEMETOLOGY METHOD 07/23/2024 10:27 AM EDT [facility] NRBC 0.0 <1.0 % LAB HEMETOLOGY METHOD 07/23/2024 10:27 AM EDT [facility] NRBC Absolute 0.00 <0.10 K/mcL LAB HEMETOLOGY METHOD 07/23/2024 10:27 AM EDT [facility] Blood Venous blood specimen / Unknown Venipuncture / Unknown 07/23/2024 7:15 AM EDT 07/23/2024 10:01 AM EDT us Araceli Maya MD LAB BLOOD ORDERABLES Fin al Result [facility] [address] [place] [address], documented in this encounter Visit Diagnoses Diagnosis Essential (primary) hypertension Unspecified essential hypertension Anemia, unspecified Unspecified osteoarthritis, unspecified site documented in this encounter Care Teams Director Medical Writing Relationship Specialty Start Date End Date Vivian Massey DO [address] [place] [address] PCP - General Internal Medicine 07/21/17 documented as of this encounter
--- OUTSIDE RECORDS SUMMARY | 2024-11-25 09:43 | XMS_ITS | Encounter Summary ---
Author Organization [facility] Address [address] [place] [address] Care Team Providers Care Affirmative Action Specialist Name Role Phone Vivian Massey DO Primary Care Provider +1- [phone] Encounter Details Date Type Department Care Team (Late st Contact Info) Description 10/07/2024 Lab Requisition [facility] - Main Lab 299 [facility] [place] [address] Araceli Maya MD [address] [phone] Essential (primary) hypertension; Anemia, unspecified; Unspecified osteoarthritis, [...] Associated Diagnosis Comments COMPLETE BLOOD COUNT Routine 10/08/2024 5:15 AM EDT Essential (primary) hypertension Anemia, unspecified Unspecified osteoarthritis, unspecified site BASIC METABOLIC PANEL Routine 10/08/2024 5:15 AM EDT Essential (primary) hypertension Anemia, unspecified Unspecified osteoarthritis, unspecified site documented in this encounter Results * (ABNORMAL) Complete blood count (10/08/2024 5:15 AM EDT) [facility] WBC 5.4 4.8 - 10.8 K/mcL LAB HEMETOLOGY METHOD 10/08/2024 8:04 AM [facility] RBC 3.30(L) 3.80 - 4.80 M/mcL LAB HEMETOLOGY METHOD 10/08/2024 8:04 AM [facility] Hemoglobin 10.2(L) 11.5 - 16.0 g/dL LAB HEMETOLOGY METHOD 10/08/2024 8:04 AM [facility] Hematocrit 30.8(L) 35.0 - 47.0 % LAB HEMETOLOGY METHOD 10/08/2024 8:04 AM [facility] MCV 94.5 79.0 - 98.0 FL LAB HEMETOLOGY METHOD 10/08/2024 8:04 AM [facility] MCH 31.3 27.0 - 32.0 pcg LAB HEMETOLOGY METHOD 10/08/2024 8:04 AM [facility] MCHC 33.1 32.0 - 37.0 g/dL LAB HEMETOLOGY METHOD 10/08/2024 8:04 AM [facility] RDW 14.5 11.0 - 15.0 % LAB HEMETOLOGY METHOD 10/08/2024 8:04 AM [facility] Platelets 222 130 - 400 K/mcL LAB HEMETOLOGY METHOD 10/08/2024 8:04 AM [facility] MPV 9.2 7.0 - 11.0 FL LAB HEMETOLOGY METHOD 10/08/2024 8:04 AM [facility] NRBC 0.0 <1.0 % LAB HEMETOLOGY METHOD 10/08/2024 8:04 AM [facility] NRBC Absolute 0.00 <0.10 K/mcL LAB HEMETOLOGY METHOD 10/08/2024 8:04 AM [facility] Blood Venous blood specimen / Unknown Venipuncture / Unknown 10/08/2024 5:15 AM EDT 10/08/2024 7:47 AM EDT us Araceli Maya MD LAB BLOOD ORDERABLES Fin al Result [facility] [address] [place] [address], * (ABNORMAL) Basic metabolic panel (10/08/2024 5:15 AM EDT) Sodium 131(L) 133 - 145 mmol/L LAB CHEMISTRY METHOD 10/08/2024 9:09 AM [facility] Potassium 3.6 3.5 - 5.5 mmol/L LAB CHEMISTRY METHOD 10/08/2024 9:09 AM [facility] Chloride 93(L) 96 - 110 mmol/L LAB CHEMISTRY METHOD 10/08/2024 9:09 AM [facility] CO2 33(H) 21 - 32 mmol/L LAB CHEMISTRY METHOD 10/08/2024 9:09 AM [facility] Anion Gap 5 3 - 11 LAB CHEMISTRY METHOD 10/08/2024 9:09 AM [facility] Glucose 79 70 - 100 mg/dL LAB CHEMISTRY METHOD 10/08/2024 9:09 AM [facility] BUN 14 5 - 25 mg/dL LAB CHEMISTRY METHOD 10/08/2024 9:09 AM [facility] Creatinine 0.83 0.50 - 1.10 mg/dL LAB CHEMISTRY METHOD 10/08/2024 9:09 AM [facility] eGFR 73 >=60 mL/min/1. 73m2 LAB CHEMISTRY METHOD 10/08/2024 9:09 AM EDT [facility] Comment:Calculation based on the Chronic Kidney Disease Epidemiology Collaboration (CKD-EPI) equation refit without adjustment for race. BUN/Creatinine Ratio 16.9 LAB CHEMISTRY METHOD 10/08/2024 9:09 AM EDT [facility] Calcium 8.7 8.5 - 10.5 mg/dL LAB CHEMISTRY METHOD 10/08/2024 9:09 AM EDT [facility] Blood Venous blood specimen / Unknown Venipuncture / Unknown 10/08/2024 5:15 AM EDT 10/08/2024 7:47 AM EDT us Araceli Maya MD LAB BLOOD ORDERABLES Fin al Result [facility] [address] [place] [address], documented in this encounter Visit Diagnoses Diagnosis Essential (primary) hypertension Unspecified essential hypertension Anemia, unspecified Unspecified osteoarthritis, unspecified site documented in this encounter Care Teams Affirmative Action Specialist Relationship Specialty Start Date End Date Vivian Massey DO [address] [place] [address] PCP - General Internal Medicine 07/21/17 documented as of this encounter
--- OUTSIDE RECORDS SUMMARY | 2024-11-25 09:43 | XMS_ITS | Encounter Summary ---
Author Organization [facility] Address [address] [place] [address] Care Team Providers Care Coke Crusher Operator Name Role Phone Vivian Massey Primary Care Provider +1- [phone] Encounter Details Date Type Department Care Team ([facility] st Contact Info) Description 09/18/[address] [facility] - Main Lab [address] [place] [address] Araceli Maya MD [address] [address] Hypokalemia Social History Tobacco Use Types Packs/Day [...] Associated Diagnosis Comments BASIC METABOLIC PANEL Routine 09/18/2024 5:51 AM EDT Hypokalemia documented in this encounter Results * Basic metabolic panel (09/18/2024 5:51 AM EDT) Sodium 134 133 - 145 mmol/L LAB CHEMISTRY METHOD 09/18/2024 8:19 AM EDT [facility] Potassium 3.6 3.5 - 5.5 mmol/L LAB CHEMISTRY METHOD 09/18/2024 8:19 AM [facility] Chloride 97 96 - 110 mmol/L LAB CHEMISTRY METHOD 09/18/2024 8:19 AM [facility] CO2 31 21 - 32 mmol/L LAB CHEMISTRY METHOD 09/18/2024 8:19 AM [facility] Anion Gap 6 3 - 11 LAB CHEMISTRY METHOD 09/18/2024 8:19 AM [facility] Glucose 82 70 - 100 mg/dL LAB CHEMISTRY METHOD 09/18/2024 8:19 AM [facility] BUN 11 5 - 25 mg/dL LAB CHEMISTRY METHOD 09/18/2024 8:19 AM [facility] Creatinine 0.69 0.50 - 1.10 mg/dL LAB CHEMISTRY METHOD 09/18/2024 8:19 AM [facility] eGFR 90 >=60 mL/min/1. 73m2 LAB CHEMISTRY METHOD 09/18/2024 8:19 AM [facility] Comment:Calculation based on the Chronic Kidney Disease Epidemiology Collaboration (CKD-EPI) equation refit without adjustment for race. BUN/Creatinine Ratio 15.9 LAB CHEMISTRY METHOD 09/18/2024 8:19 AM [facility] Calcium 9.0 8.5 - 10.5 mg/dL LAB CHEMISTRY METHOD 09/18/2024 8:19 AM [facility] Blood Venous blood specimen / Unknown Venipuncture / Unknown 09/18/2024 5:51 AM EDT 09/18/2024 6:44 AM EDT us Araceli Maya MD LAB BLOOD ORDERABLES Fin al Result [facility] [address] [place] [address], documented in this encounter Visit Diagnoses Diagnosis Hypokalemia Hypopotassemia documented in this encounter Care Teams Coke Crusher Operator Relationship Specialty Start Date End Date Vivian Massey DO [address] [place], [place] PCP - General Internal Medicine 07/21/17 documented as of this encounter
--- OUTSIDE RECORDS SUMMARY | 2024-11-25 09:43 | XMS_ITS | Encounter Summary ---
Author Organization [facility] Address [address] [place] [address] Care Team Providers Care Guard Entrance Registrar Name Role Phone Vivian Massey DO Primary Care Provider +1- [phone] Encounter Details Date Type Department Care Team (Late st Contact Info) Description 08/12/2024 Lab Requisition [facility] - Main Lab 299 [facility] [place] [address] Araceli Maya MD [address] [phone] Essential (primary) hypertension; Anemia, unspecified; Unspecified osteoarthritis, [...] mmol/L LAB CHEMISTRY METHOD 08/13/2024 10:09 AM [facility] Potassium 3.7 3.5 - 5.5 mmol/L LAB CHEMISTRY METHOD 08/13/2024 10:09 AM [facility] Chloride 99 96 - 110 mmol/L LAB CHEMISTRY METHOD 08/13/2024 10:09 AM [facility] CO2 33(H) 21 - 32 mmol/L LAB CHEMISTRY METHOD 08/13/2024 10:09 AM [facility] Anion Gap 3 3 - 11 LAB CHEMISTRY METHOD 08/13/2024 10:09 AM [facility] Glucose 80 70 - 100 mg/dL LAB CHEMISTRY METHOD 08/13/2024 10:09 AM [facility] BUN 12 5 - 25 mg/dL LAB CHEMISTRY METHOD 08/13/2024 10:09 AM [facility] Creatinine 0.76 0.50 - 1.10 mg/dL LAB CHEMISTRY METHOD 08/13/2024 10:09 AM [facility] eGFR 81 >=60 mL/min/1. 73m2 LAB CHEMISTRY METHOD 08/13/2024 10:09 AM [facility] Comment:Calculation based on the Chronic Kidney Disease Epidemiology Collaboration (CKD-EPI) equation refit without adjustment for race. BUN/Creatinine Ratio 15.8 LAB CHEMISTRY METHOD 08/13/2024 10:09 AM [facility] Calcium 9.0 8.5 - 10.5 mg/dL LAB CHEMISTRY METHOD 08/13/2024 10:09 AM [facility] Blood Venous blood specimen / Unknown Venipuncture / Unknown 08/13/2024 6:05 AM EDT 08/13/2024 9:23 AM EDT Araceli Maya MD LAB BLOOD ORDERABLES Fin al Result [facility] [address] [place] [address], * (ABNORMAL) Complete blood count (08/13/2024 6:05 AM EDT) WBC 3.5(L) 4.8 - 10.8 K/mcL LAB HEMETOLOGY METHOD 08/13/2024 9:52 AM EDT [facility] RBC 3.50(L) 3.80 - 4.80 M/mcL LAB HEMETOLOGY METHOD 08/13/2024 9:52 AM [facility] Hemoglobin 10.9(L) 11.5 - 16.0 g/dL LAB HEMETOLOGY METHOD 08/13/2024 9:52 AM [facility] Hematocrit 33.8(L) 35.0 - 47.0 % LAB HEMETOLOGY METHOD 08/13/2024 9:52 AM [facility] MCV 95.8 79.0 - 98.0 FL LAB HEMETOLOGY METHOD 08/13/2024 9:52 AM [facility] MCH 30.9 27.0 - 32.0 pcg LAB HEMETOLOGY METHOD 08/13/2024 9:52 AM EDT [facility] MCHC 32.2 32.0 - 37.0 g/dL LAB HEMETOLOGY METHOD 08/13/2024 9:52 AM [facility] RDW 14.1 11.0 - 15.0 % LAB HEMETOLOGY METHOD 08/13/2024 9:52 AM [facility] Platelets 224 130 - 400 K/mcL LAB HEMETOLOGY METHOD 08/13/2024 9:52 AM [facility] MPV 9.0 7.0 - 11.0 [...] Result [facility] [address] [place] [address], documented in this encounter Visit Diagnoses Diagnosis Essential (primary) hypertension Unspecified essential hypertension Anemia, unspecified Unspecified osteoarthritis, unspecified site documented in this encounter Care Teams Guard Entrance Registrar Relationship Specialty Start Date End Date Vivian Massey DO [address] [place], [place] PCP - General Internal Medicine 07/21/17 documented as of this encounter
--- OUTSIDE RECORDS SUMMARY | 2024-11-25 09:43 | XMS_ITS | Encounter Summary ---
Author Organization [employer] Address [address] [facility] [address] [place] [address] Care Team Providers Care Principal Engineer Name Role Phone Shilpa Vivian GARCIA Primary Care Provider + [phone] Encounter Details Date Type Department Care Team (Late st Contact Info) Description 11/21/2024 Orders Only [facility] External Provider, [facility] Social History Tobacco Use Types Packs/Day [...] Description 11/26/2024 10:45 AM EDT Office Visit [facility] [address] [place] [phone] Clara Iverson MD [address] [place], [place] [phone] documented as of this encounter Procedures Procedure Name Priority Date/Time Associated Diagnosis Comments XR CHEST 2 VIEWS Routine 11/21/2024 3:11 PM EDT documented in this encounter Results * XR Chest 2 Views (11/21/2024 3:11 PM EDT) Anatomical Region Laterality Modality Chest Radiographic Elma ging 11/21/2024 3:11 PM EDT Narrative 11/21/2024 3:30 PM EDT [address] [address] XRay Report Signed Patient: Jennifer Whitehead I MR#: [id number] 4 : 1950 Acct:[id number] Age/Sex: 74 / F ADM Date: 11/21/24 Loc: [facility].ED Attending Dr: Ordering Physician: Christine Espino DO Date of Service: 11/21/24 Procedure(s): XR chest 2V Accession Number(s): [id number] cc: Christine Espino DO; Vivian Massey DO [...] 11/21/24 1527 DD/ 1511 TD/TT: 11/21/24 1516 Transportation Maintenance Operator: Procedure Note Donotuseinterpreter, Image - 11/21/2024 [place] [address] XRay Report Signed Patient: Jennifer Whitehead IMR#: [id number] 4 : 9Acct:[id number] Age/Sex: 74 / FADM Date: 11/21/24 Loc: .ED Attending Dr: Ordering Physician: Christine Espino DO Date of Service: 11/21/24 Procedure(s): XR chest 2V Accession Number(s): [id number] cc: Christine Espino DO; Vivian Massey DO [...] 11/21/24 1527 DD/ 1511 TD/TT: 11/21/24 1516 Transportation Maintenance Operator: [facility] External Provider IMG XR PROCEDURES Final Result documented in this encounter Visit Diagnoses Not on filedocumented in this encounter Additional Health Concerns Assessment Noted Time PHQ-9 Depression Total Score: 10 024 9:35 AM EDT documented as of this encounter Care Teams Principal Engineer Relationship Specialty Start Date End Date Vivian Massey DO [address] [place] [address] PCP - General Family Medicine 07/27/20 documented as of this encounter
--- OUTSIDE RECORDS SUMMARY | 2024-11-25 09:43 | XMS_ITS | Encounter Summary ---
Author Organization [facility] Address [address] [place] [address] Care Team Providers Care Childcare Director Name Role Phone Vivian Massey Primary Care Provider +1- [phone] Encounter Details Date Type Department Care Team ([facility] st Contact Info) Description 09/15/2024 Lab Requisition [facility] - Main Lab [address] [facility] [place] [address] Annalisa Kulkarni PA [address] [place] [address] Altered mental status, unspecified Social History Tobacco Use Types Packs/Day Years [...] Diagnosis Comments URINALYSIS WITH REFLEX MICROSCOPIC Routine 09/14/2024 11:00 AM EDT Altered mental status, unspecified URINALYSIS WITH REFLEX MICROSCOPIC Routine 09/14/2024 11:00 AM EDT Altered mental status, unspecified CULTURE URINE Routine 09/14/2024 11:00 AM EDT Altered mental status, unspecified documented in this encounter Results * (ABNORMAL) Urinalysis with reflex microscopic (09/14/2024 11:00 AM [facility]) Specific [place] Urine 1.028 1.003 - 1.030 LAB URINALYSIS - AUTOMATED METHOD 09/15/2024 10:40 AM [facility] pH, Urine 6.0 5.0 - 8.0 pH LAB URINALYSIS - AUTOMATED METHOD 09/15/2024 10:40 AM [facility] Leukocytes, Urine Moderate(A) Negative LAB URINALYSIS - AUTOMATED METHOD 09/15/2024 10:40 AM [facility] Nitrite, Urine Positive(A) Negative LAB URINALYSIS - AUTOMATED METHOD 09/15/2024 10:40 AM [facility] Protein, Urine 30(A) <=Trace mg/dL LAB URINALYSIS - AUTOMATED METHOD 09/15/2024 10:40 AM [facility] Glucose, Urine Negative Negative mg/dL LAB URINALYSIS - AUTOMATED METHOD 09/15/2024 10:40 AM [facility] Ketones, Urine Trace(A) Negative mg/dL LAB URINALYSIS - AUTOMATED METHOD 09/15/2024 10:40 AM [facility] Urobilinogen , Urine 1.0 0.2 - 1.0 mg/dL LAB URINALYSIS - AUTOMATED METHOD 09/15/2024 10:40 AM [facility] Bilirubin, Urine Negative Negative LAB URINALYSIS - AUTOMATED METHOD 09/15/2024 10:40 AM [facility] Blood, Urine Trace(A) Negative LAB URINALYSIS - AUTOMATED METHOD 09/15/2024 10:40 AM [facility] RBC, Urine 2.0 0 - 4 /HPF LAB URINALYSIS - AUTOMATED METHOD 09/15/2024 10:40 AM [facility] WBC, Urine 49.2(H) 0 - 4 /HPF LAB URINALYSIS - AUTOMATED METHOD 09/15/2024 10:40 AM EDT [facility] Squamous Epithelial, Urine 58 0 - 60 /LPF LAB URINALYSIS - AUTOMATED METHOD 09/15/2024 10:40 AM EDT [facility] Crystals, Urine MOD CALCIUM OXALATE /LPF LAB URINALYSIS - AUTOMATED METHOD 09/15/2024 10:40 AM EDT [facility] Bacteria, Urine Many(A) Negative /HPF LAB URINALYSIS - AUTOMATED METHOD 09/15/2024 10:40 AM EDT [facility] Hyaline Casts, Urine 0.0 0 - 3 /LPF LAB URINALYSIS - AUTOMATED METHOD 09/15/2024 10:40 AM EDT [facility] Urine Urine specimen obtained by clean catch procedure / Unknown Non-blood Collection / Unknown 09/14/2024 11:00 AM EDT 09/15/2024 8:28 AM EDT us Annalisa KELLY LAB URINE ORDERABLES Final Resul t [facility] [address] [place] [address], * (ABNORMAL) Culture urine (09/14/2024 11:00 AM EDT) Culture, Urine >100,000 CFU/mL Klebsiella pneumoniae ssp pneumoniae(A) RADHAEMS 09/18/2024 7:38 AM EDT [facility] Comment: This is an edited result. Previous organism was Gram negative bacilli on 09/16/2024 at 1010 EDT. Culture, Urine 50,000-100,00 0 CFU/mL Aerococcus urinae(A) RADHAMES 09/18/2024 7:38 AM EDT [facility] Comment: Susceptibility testing not routinely performed. If further therapeutic information is required, please consult an infectious disease specialist. The organism value for this result has been updated. These results have been appended to the previously preliminary verified report. This is an edited result. Previous organism was Streptococcus alpha-hemolytic on 09/17/2024 at 0816 EDT. Urine Urine specimen obtained by clean catch procedure / Unknown Non-blood Collection / Unknown 09/14/2024 11:00 AM EDT 09/15/2024 8:28 AM EDT Narrative Organism Antibiotic Method Susceptibility Klebsiella pneumoniae ssp pneumoniae Amoxicillin/Clavulanate RADHAMES 4 ug/ml: Susceptible Klebsiella pneumoniae ssp pneumoniae Ampicillin/Sulbactam RADHAMES 4 ug/ml: Susceptible Klebsiella pneumoniae ssp pneumoniae Piperacillin/Tazobactam RADHAMES <=4 ug/ml: Susceptible Klebsiella pneumoniae ssp pneumoniae Cefazolin (Urine) RADHAMES 2 ug/ml: Susceptible Klebsiella pneumoniae ssp pneumoniae Cefoxitin RADHAMES <=4 ug/ml: Susceptible Klebsiella pneumoniae ssp pneumoniae Ceftazidime RADHAMES <=0.5 ug/ml: Susceptible Klebsiella pneumoniae ssp pneumoniae Ceftriaxone RADHAMES <=0.25 ug/ml: Susceptible Klebsiella pneumoniae ssp pneumoniae Cefepime RADHAMES <=0.12 ug/ml: Susceptible Klebsiella pneumoniae ssp pneumoniae Meropenem RADHAMES <=0.25 ug/ml: Susceptible Klebsiella pneumoniae ssp pneumoniae Amikacin RADHAMES <=1 ug/ml: Susceptible Klebsiella pneumoniae ssp pneumoniae Gentamicin RADHAMES <=1 ug/ml: Susceptible Klebsiella pneumoniae ssp pneumoniae Ciprofloxacin RADHAMES <=0.06 ug/ml: Susceptible Klebsiella pneumoniae ssp pneumoniae Levofloxacin RADHAMES <=0.12 ug/ml: Susceptible Klebsiella pneumoniae ssp pneumoniae Nitrofurantoin RADHAMES 32 ug/ml: Susceptible Klebsiella pneumoniae ssp pneumoniae Trimethoprim/Sulfamethoxazo le RADHAMES <=20 ug/ml: Susceptible Annalisa KELLY LAB MICROBIOLOGY - GENERAL ORDER BABAR Final Result [facility] [address] [place] [address], documented in this encounter Visit Diagnoses Diagnosis Altered mental status, unspecified documented in this encounter Care Teams Childcare Director Relationship Specialty Start Date End Date Vivian Massey DO [address] [place] [address] PCP - General Internal Medicine 07/21/17 documented as of this encounter
--- OUTSIDE RECORDS SUMMARY | 2024-11-25 09:43 | XMS_ITS | Encounter Summary ---
Author Organization [facility] Address [address] [place] [address] Care Team Providers Care Sanitation Truck Cleaner Name Role Phone Vivian Massey DO Primary Care Provider [phone]- [phone] Encounter Details Date Type Department Care Team (Late st Contact Info) Description 09/16/2024 Lab Requisition [facility] - Main Lab 299 [facility] [place] [address] Araceli Maya MD [address] [id number] Essential (primary) hypertension; Anemia, unspecified; Unspecified osteoarthritis, [...] Associated Diagnosis Comments COMPLETE BLOOD COUNT Routine 09/17/2024 6:04 AM EDT Essential (primary) hypertension Anemia, unspecified Unspecified osteoarthritis, unspecified site BASIC METABOLIC PANEL Routine 09/17/2024 6:04 AM EDT Essential (primary) hypertension Anemia, unspecified Unspecified osteoarthritis, unspecified site documented in this encounter Results * (ABNORMAL) Basic metabolic panel (09/17/2024 6:04 AM EDT) Sodium 136 133 - 145 mmol/L LAB CHEMISTRY METHOD 09/17/2024 9:46 AM [facility] Potassium 3.2(L) 3.5 - 5.5 mmol/L LAB CHEMISTRY METHOD 09/17/2024 9:46 AM [facility] Chloride 97 96 - 110 mmol/L LAB CHEMISTRY METHOD 09/17/2024 9:46 AM [facility] CO2 34(H) 21 - 32 mmol/L LAB CHEMISTRY METHOD 09/17/2024 9:46 AM [facility] Anion Gap 5 3 - 11 LAB CHEMISTRY METHOD 09/17/2024 9:46 AM [facility] Glucose 83 70 - 100 mg/dL LAB CHEMISTRY METHOD 09/17/2024 9:46 AM [facility] BUN 15 5 - 25 mg/dL LAB CHEMISTRY METHOD 09/17/2024 9:46 AM [facility] Creatinine 0.83 0.50 - 1.10 mg/dL LAB CHEMISTRY METHOD 09/17/2024 9:46 AM [facility] eGFR 73 >=60 mL/min/1. 73m2 LAB CHEMISTRY METHOD 09/17/2024 9:46 AM [facility] Comment:Calculation based on the Chronic Kidney Disease Epidemiology Collaboration (CKD-EPI) equation refit without adjustment for race. BUN/Creatinine Ratio 18.1 LAB CHEMISTRY METHOD 09/17/2024 9:46 AM [facility] Calcium 8.8 8.5 - 10.5 mg/dL LAB CHEMISTRY METHOD 09/17/2024 9:46 AM [facility] Blood Venous blood specimen / Unknown Venipuncture / Unknown 09/17/2024 6:04 AM EDT 09/17/2024 8:25 AM EDT us Araceli Maya MD LAB BLOOD ORDERABLES Fin al Result [facility] [address] [place] [address], * (ABNORMAL) Complete blood count (09/17/2024 6:04 AM EDT) WBC 4.4(L) 4.8 - 10.8 K/mcL LAB HEMETOLOGY METHOD 09/17/2024 9:19 AM EDT [facility] RBC 3.40(L) 3.80 - 4.80 M/mcL LAB HEMETOLOGY [facility] Hemoglobin 10.7(L) 11.5 - 16.0 g/dL LAB HEMETOLOGY METHOD 09/17/2024 9:19 AM [facility] Hematocrit 33.3(L) 35.0 - 47.0 % LAB HEMETOLOGY METHOD [facility]/17[facility]24 [facility] MCV 97.7 79.0 - 98.0 FL LAB HEMETOLOGY METHOD [facility]/17[facility]2024 9[facility] MCH 31.4 27.0 - 32.0 pcg LAB HEMETOLOGY METHOD 09/17/2024 9:19 AM EDT [facility] MCHC 32.1 32.0 - 37.0 g/dL LAB HEMETOLOGY METHOD 09/17/2024 9[facility] RDW 14.4 11.0 - 15.0 % LAB HEMETOLOGY METHOD 09/17/2024 9[facility] Platelets 225 130 - 400 K/mcL LAB HEMETOLOGY METHOD 09/17[facility]2024 9[facility] MPV 9.4 7.0 - 11.0 FL LAB HEMETOLOGY METHOD 09/17/2024 9:19 AM EDT [facility] NRBC 0.0 <1.0 % LAB HEMETOLOGY METHOD 09/17/2024 9:19 AM EDT [facility] NRBC Absolute 0.00 <0.10 K/mcL LAB HEMETOLOGY METHOD 09/17/2024 9:19 AM EDT [facility] Blood Venous blood specimen / Unknown Venipuncture / Unknown 09/17/2024 6:04 AM EDT 09/17/2024 8:25 AM EDT us Araceli Maya MD LAB BLOOD ORDERABLES Fin al Result [facility] [address] [place] [address], documented in this encounter Visit Diagnoses Diagnosis Essential (primary) hypertension Unspecified essential hypertension Anemia, unspecified Unspecified osteoarthritis, unspecified site documented in this encounter Care Teams Sanitation Truck Cleaner Relationship Specialty Start Date End Date Vivian Massey DO [address] [place] [address] PCP - General Internal Medicine 07/21/17 documented as of this encounter
--- OUTSIDE RECORDS SUMMARY | 2024-11-25 09:43 | XMS_ITS | Encounter Summary ---
Author Organization [facility] Address [address] [facility] [address] [place] [address] Care Team Providers Care Beater Out Leveling Machine Name Role Phone Vivian Massey DO Primary Care Provider [phone] Encounter Details Date Type Department Care Team ([facility] st Contact Info) Description 08/15/2023 Orders Only [facility] [address] [place] [address] Vivian Massey DO [address] [place], [place] [phone] Social History Tobacco Use Types Packs/Day Years [...] Description 11/26/2024 10:45 AM EDT Office Visit [facility] [address] [place] [address] Clara Iverson MD [address] [place] [address] documented as of this encounter Visit Diagnoses Not on filedocumented in this encounter Additional Health Concerns Assessment Noted Time PHQ-9 Depression Total Score: 8 06/06/19 24 2:37 PM EDT documented as of this encounter Care Teams Beater Out Leveling Machine Relationship Specialty Start Date End Date Vivian Massey DO [address] [place] [address] PCP - General Family Medicine 07/27/20 documented as of this encounter
--- OUTSIDE RECORDS SUMMARY | 2024-11-25 09:43 | XMS_ITS | Encounter Summary ---
Author Organization [facility] Address [address] [place] [address] Care Team Providers Care Head Silverman Name Role Phone Vivian Massey DO Primary Care Provider [phone]- [phone] Encounter Details Date Type Department Care Team (Late st Contact Info) Description 07/20/2024 Lab Requisition [facility] - Main Lab [address] [facility] [place] [address] Araceli Maya MD [address] [phone] Anemia, unspecified; Essential (primary) hypertension; Vitamin D deficiency, unspecified Social History Tobacco Use Types Packs/Day [...] Associated Diagnosis Comments COMPLETE BLOOD COUNT Routine 07/20/2024 6:07 AM EDT Anemia, unspecified Essential (primary) hypertension Vitamin D deficiency, unspecified BASIC METABOLIC PANEL Routine 07/20/2024 6:07 AM EDT Anemia, unspecified Essential (primary) hypertension Vitamin D deficiency, unspecified documented in this encounter Results * (ABNORMAL) Basic metabolic panel (07/20/2024 6:07 AM EDT) Sodium 124(L) 133 - 145 mmol/L LAB CHEMISTRY METHOD 07/20/2024 10:59 AM [facility] Potassium 3.9 3.5 - 5.5 mmol/L LAB CHEMISTRY METHOD 07/20/2024 10:59 AM [facility] Chloride 85(L) 96 - 110 mmol/L LAB CHEMISTRY METHOD 07/20/2024 10:59 AM [facility] CO2 31 21 - 32 mmol/L LAB CHEMISTRY METHOD 07/20/2024 10:59 AM [facility] Anion Gap 8 3 - 11 LAB CHEMISTRY METHOD 07/20/2024 10:59 AM [facility] Glucose 78 70 - 100 mg/dL LAB CHEMISTRY METHOD 07/20/2024 10:59 AM [facility] BUN 13 5 - 25 mg/dL LAB CHEMISTRY METHOD 07/20/2024 10:59 AM [facility] Creatinine 0.63 0.50 - 1.10 mg/dL LAB CHEMISTRY METHOD 07/20/2024 10:59 AM [facility] eGFR 92 >=60 mL/min/1. 73m2 LAB CHEMISTRY METHOD 07/20/2024 10:59 AM [facility] Comment:Calculation based on the Chronic Kidney Disease Epidemiology Collaboration (CKD-EPI) equation refit without adjustment for race. BUN/Creatinine Ratio 20.6 LAB CHEMISTRY METHOD 07/20/2024 10:59 AM [facility] Calcium 8.5 8.5 - 10.5 mg/dL LAB CHEMISTRY METHOD 07/20/2024 10:59 AM [facility] Blood Venous blood specimen / Unknown Venipuncture / Unknown 07/20/2024 6:07 AM EDT 07/20/2024 9:41 AM EDT Araceli Maya MD LAB BLOOD ORDERABLES Fin al Result [facility] [address] [place] [address], * (ABNORMAL) Complete blood count (07/20/2024 6:07 AM EDT) WBC 3.8(L) 4.8 - 10.8 K/mcL LAB HEMETOLOGY METHOD 07/20/2024 10:30 AM EDT [facility] RBC 3.60(L) 3.80 - 4.80 M/mcL LAB HEMETOLOGY METHOD [facility] Hemoglobin 11.4(L) 11.5 - 16.0 g/dL LAB HEMETOLOGY METHOD 07/20/2024 10:30 AM [facility] Hematocrit 33.3(L) 35.0 - 47.0 % LAB HEMETOLOGY METHOD 07/20/2024 10:[facility] MCV 93.3 79.0 - 98.0 FL LAB HEMETOLOGY METHOD 07/20/2024 10:30 [facility] MCH 31.9 27.0 - 32.0 pcg LAB HEMETOLOGY METHOD 07/20/2024 10:30 AM EDT [facility] MCHC 34.2 32.0 - 37.0 g/dL LAB HEMETOLOGY METHOD 07/20/2024 10:30 [facility] RDW 12.7 11.0 - 15.0 % LAB HEMETOLOGY METHOD 07/20/2024 10:30 [facility] Platelets 194 130 - 400 K/mcL LAB HEMETOLOGY METHOD 07/20/2024 10:30 [facility] MPV 9.6 7.0 - 11.0 FL LAB HEMETOLOGY METHOD 07/20/2024 10:30 AM EDT [facility] NRBC 0.0 <1.0 % LAB HEMETOLOGY METHOD 07/20/2024 10:30 AM EDT [facility] NRBC Absolute 0.00 <0.10 K/mcL LAB HEMETOLOGY METHOD 07/20/2024 10:30 AM EDT [facility] Blood Venous blood specimen / Unknown Venipuncture / Unknown 07/20/2024 6:07 AM EDT 07/20/2024 9:41 AM EDT us Araceli Maya MD LAB BLOOD ORDERABLES Fin al Result [facility] [address] [place] [address], documented in this encounter Visit Diagnoses Diagnosis Anemia, unspecified Essential (primary) hypertension Unspecified essential hypertension Vitamin D deficiency, unspecified documented in this encounter Care Teams Head Silverman Relationship Specialty Start Date End Date Vivian Massey DO [address] [place], [place] PCP - General Internal Medicine 07/21/17 documented as of this encounter
--- OUTSIDE RECORDS SUMMARY | 2024-11-25 09:43 | XMS_ITS | Encounter Summary ---
Author Organization [facility] Address [address] [place] [address] Care Team Providers Care Lime Filter Operator Name Role Phone Vivian Massey DO Primary Care Provider [phone]- [phone] Encounter Details Date Type Department Care Team (Late st Contact Info) Description 08/03/2024 Lab Requisition [facility] - Main Lab [address] [facility] [place] [address] Araceli Maya MD [address] [phone] Essential (primary) hypertension; Anemia, unspecified; Unspecified osteoarthritis, [...] Associated Diagnosis Comments COMPLETE BLOOD COUNT Routine 08/06/2024 6:57 AM EDT Essential (primary) hypertension Anemia, unspecified Unspecified osteoarthritis, unspecified site BASIC METABOLIC PANEL Routine 08/06/2024 6:57 AM EDT Essential (primary) hypertension Anemia, unspecified Unspecified osteoarthritis, unspecified site documented in this encounter Results * (ABNORMAL) Basic metabolic panel (08/06/2024 6:57 AM EDT) Sodium 131(L) 133 - 145 mmol/L LAB CHEMISTRY METHOD 08/06/2024 10:58 AM [facility] Potassium 3.6 3.5 - 5.5 mmol/L LAB CHEMISTRY METHOD 08/06/2024 10:58 AM [facility] Chloride 95(L) 96 - 110 mmol/L LAB CHEMISTRY METHOD 08/06/2024 10:58 AM [facility] CO2 31 21 - 32 mmol/L LAB CHEMISTRY METHOD 08/06/2024 10:58 AM [facility] Anion Gap 5 3 - 11 LAB CHEMISTRY METHOD 08/06/2024 10:58 AM [facility] Glucose 75 70 - 100 mg/dL LAB CHEMISTRY METHOD 08/06/2024 10:58 AM [facility] BUN 11 5 - 25 mg/dL LAB CHEMISTRY METHOD 08/06/2024 10:58 AM [facility] Creatinine 0.76 0.50 - 1.10 mg/dL LAB CHEMISTRY METHOD 08/06/2024 10:58 AM [facility] eGFR 81 >=60 mL/min/1. 73m2 LAB CHEMISTRY METHOD 08/06/2024 10:58 AM [facility] Comment:Calculation based on the Chronic Kidney Disease Epidemiology Collaboration (CKD-EPI) equation refit without adjustment for race. BUN/Creatinine Ratio 14.5 LAB CHEMISTRY METHOD 08/06/2024 10:58 AM [facility] Calcium 8.6 8.5 - 10.5 mg/dL LAB CHEMISTRY METHOD 08/06/2024 10:58 AM [facility] Blood Venous blood specimen / Unknown Venipuncture / Unknown 08/06/2024 6:57 AM EDT 08/06/2024 10:58 AM EDT us Araceli Maya MD LAB BLOOD ORDERABLES Fin al Result [facility] [address] [place] [address], * (ABNORMAL) Complete blood count (08/06/2024 6:57 AM EDT) WBC 3.3(L) 4.8 - 10.8 K/mcL LAB HEMETOLOGY METHOD 08/06/2024 11:[address] [facility] RBC 3.70(L) 3.80 - 4.80 M/mcL LAB HEMETOLOGY METHOD 08/06/2024 11:00 AM [facility] Hemoglobin 11.4(L) 11.5 - 16.0 g/dL LAB HEMETOLOGY METHOD 08/06/2024 11:00 AM [facility] Hematocrit 34.9(L) 35.0 - 47.0 % LAB HEMETOLOGY METHOD 08/06/2024 11:00 AM [facility] MCV 95.6 79.0 - 98.0 FL LAB HEMETOLOGY METHOD [facility]24 [facility] MCH 31.2 27.0 - 32.0 pcg LAB HEMETOLOGY METHOD [facility]24 [facility] MCHC 32.7 32.0 - 37.0 g/dL LAB HEMETOLOGY METHOD 08/06/2024 11:00 AM [facility] RDW 13.6 11.0 - 15.0 % LAB HEMETOLOGY METHOD 08/06/2024 11:00 AM [facility] Platelets 262 130 - 400 K/mcL LAB HEMETOLOGY METHOD 08/06/2024 11:00 AM [facility] MPV 9.1 7.0 - 11.0 FL LAB HEMETOLOGY METHOD 08/06/2024 11:[address] [facility] NRBC 0.0 <1.0 % LAB HEMETOLOGY METHOD 08/06/2024 11:[address] [facility] NRBC Absolute 0.00 <0.10 K/mcL LAB HEMETOLOGY METHOD 08/06/2024 11:[address] [facility] Blood Venous blood specimen / Unknown Venipuncture / Unknown 08/06/2024 6:57 AM EDT 08/06/2024 10:59 AM EDT us Araceli Maya MD LAB BLOOD ORDERABLES Fin al Result [facility] [address] [place] [address], documented in this encounter Visit Diagnoses Diagnosis Essential (primary) hypertension Unspecified essential hypertension Anemia, unspecified Unspecified osteoarthritis, unspecified site documented in this encounter Care Teams Lime Filter Operator Relationship Specialty Start Date End Date Vivian Massey DO [address] [place] [address] PCP - General Internal Medicine 07/21/17 documented as of this encounter
--- OUTSIDE RECORDS SUMMARY | 2024-11-25 09:43 | XMS_ITS | Clinical Summary ---
Author Organization [facility] Address [address] [address] Phone Care Team Providers Care Motorcyles Final Inspector Name Role Phone Clementine Masseyfer Primary Care Provider [phone] Social History Tobacco Use Types Packs/Day Years [...] topic Medical Devices Not on file Insurance [facility] MED[facility] REPLACEMENT MEDICARE PART A & B [facility] MEDICARE PART A & B [facility] MEDICARE PART A & B [facility] [address] [place] [address] [facility] MEDIC[facility] REPLACEMENT MEDICARE PART A & B [facility] [address] [place] [address] [facility] MEDIC[facility] REPLACEMENT MEDICARE PART A & B [facility] MEDIC[facility] REPLACEMENT MEDICARE PART A & B [facility] Care Teams Motorcyles Final Inspector Relationship Specialty Start Date End Date Vivian Massey DO [address] [place] [id number] PCP - General Family Medicine 01/09/23 Additional Source Comments The information contained in this document represents components of the legal health record. It is not the complete legal health record.[facility]
--- OUTSIDE RECORDS SUMMARY | 2024-11-25 09:43 | XMS_ITS | Encounter Summary ---
Author Organization [facility] Address [address] [place] [address] Care Team Providers Care Sr. Manager Name Role Phone Vivian Massey DO Primary Care Provider +1- [phone] Encounter Details Date Type Department Care Team (Late st Contact Info) Description 07/29/2024 Lab Requisition [facility] - Main Lab 299 [facility] [place] [address] Araceli Maya MD [address] [phone] Essential (primary) hypertension; Anemia, unspecified; Unspecified osteoarthritis, [...] Associated Diagnosis Comments COMPLETE BLOOD COUNT Routine 07/30/2024 6:05 AM EDT Essential (primary) hypertension Anemia, unspecified Unspecified osteoarthritis, unspecified site BASIC METABOLIC PANEL Routine 07/30/2024 6:05 AM EDT Essential (primary) hypertension Anemia, unspecified Unspecified osteoarthritis, unspecified site documented in this encounter Results * (ABNORMAL) Basic metabolic panel (07/30/2024 6:05 AM EDT) Sodium 133 133 - 145 mmol/L LAB CHEMISTRY METHOD 07/30/2024 12:[address] [facility] Potassium 3.9 3.5 - 5.5 mmol/L LAB CHEMISTRY METHOD 07/30/2024 12:[address] [facility] Chloride 96 96 - 110 mmol/L LAB CHEMISTRY METHOD 07/30/2024 12:[address] [facility] CO2 30 21 - 32 mmol/L LAB CHEMISTRY METHOD 07/30/2024 12:[address] [facility] Anion Gap 7 3 - 11 LAB CHEMISTRY METHOD 07/30/2024 12:[address] [facility] Glucose 71 70 - 100 mg/dL LAB CHEMISTRY METHOD 07/30/2024 12:[address] [facility] BUN 13 5 - 25 mg/dL LAB CHEMISTRY METHOD 07/30/2024 12:[address] [facility] Creatinine 0.80 0.50 - 1.10 mg/dL LAB CHEMISTRY METHOD 07/30/2024 12:[address] [facility] eGFR 76 >=60 mL/min/1. 73m2 LAB CHEMISTRY METHOD 07/30/2024 12:[address] [facility] Comment:Calculation based on the Chronic Kidney Disease Epidemiology Collaboration (CKD-EPI) equation refit without adjustment for race. BUN/Creatinine Ratio 16.3 LAB CHEMISTRY METHOD 07/30/2024 12:[address] [facility] Calcium 8.3(L) 8.5 - 10.5 mg/dL LAB CHEMISTRY METHOD 07/30/2024 12:[address] [facility] Blood Venous blood specimen / Unknown Venipuncture / Unknown 07/30/2024 6:05 AM EDT 07/30/2024 10:35 AM EDT us Whit Laba Elder MD LAB BLOOD ORDERABLES Fin al Result [facility] [address] [place] [address], * (ABNORMAL) Complete blood count (07/30/2024 6:05 AM EDT) WBC 4.6(L) 4.8 - 10.8 K/mcL LAB HEMETOLOGY METHOD 07/30/2024 10:49 AM EDT [facility] RBC 3.40(L) 3.80 - 4.80 M/mcL LAB HEMETOLOGY METHOD 07/30/2024 10:[address] [facility] Hemoglobin 10.5(L) 11.5 - 16.0 g/dL LAB HEMETOLOGY METHOD 07/30/2024 10:[address] [facility] Hematocrit 32.1(L) 35.0 - 47.0 % LAB HEMETOLOGY METHOD 07/30/2024 10:[address] [facility] MCV 95.3 79.0 - 98.0 FL LAB HEMETOLOGY METHOD 07/30/2024 10:[address] [facility] MCH 31.2 27.0 - 32.0 pcg LAB HEMETOLOGY [facility] MCHC 32.7 32.0 - 37.0 g/dL LAB HEMETOLOGY METHOD 07/30/2024 10[facility] RDW 13.5 11.0 - 15.0 % LAB HEMETOLOGY METHOD 07/30/2024 10:[facility] Platelets 366 130 - 400 K/mcL LAB HEMETOLOGY METHOD 07/30/2024 10[facility] MPV 8.9 7.0 - 11.0 FL LAB HEMETOLOGY METHOD 07/30/2024 10:49 AM EDT [facility] NRBC 0.0 <1.0 % LAB HEMETOLOGY METHOD 07/30/2024 10:49 AM EDT [facility] NRBC Absolute 0.00 <0.10 K/mcL LAB HEMETOLOGY METHOD 07/30/2024 10:49 AM EDT [facility] Blood Venous blood specimen / Unknown Venipuncture / Unknown 07/30/2024 6:05 AM EDT 07/30/2024 10:35 AM EDT us Araceli Maya MD LAB BLOOD ORDERABLES Fin al Result [facility] [address] [place] [address], documented in this encounter Visit Diagnoses Diagnosis Essential (primary) hypertension Unspecified essential hypertension Anemia, unspecified Unspecified osteoarthritis, unspecified site documented in this encounter Care Teams Sr. Manager Relationship Specialty Start Date End Date Vivian Massey DO [address] [place], [place] PCP - General Internal Medicine 07/21/17 documented as of this encounter
--- OUTSIDE RECORDS SUMMARY | 2024-11-25 09:43 | XMS_ITS | Encounter Summary ---
Author Organization [facility] Address [address] [place] [address] Care Team Providers Care Digital Marketing Program Manager Name Role Phone Vivian Massey DO Primary Care Provider +1- [phone] Encounter Details Date Type Department Care Team (Late st Contact Info) Description 08/19/2024 Lab Requisition [facility] - Main Lab 299 [facility] [place] [address] Araceli Maya MD [address] [phone] Essential (primary) hypertension; Anemia, unspecified; Unspecified osteoarthritis, [...] Associated Diagnosis Comments COMPLETE BLOOD COUNT Routine 08/20/2024 6:15 AM EDT Essential (primary) hypertension Anemia, unspecified Unspecified osteoarthritis, unspecified site BASIC METABOLIC PANEL Routine 08/20/2024 6:15 AM EDT Essential (primary) hypertension Anemia, unspecified Unspecified osteoarthritis, unspecified site documented in this encounter Results * (ABNORMAL) Complete blood count (08/20/2024 6:15 AM EDT) [facility] Signature WBC 3.9(L) 4.8 - 10.8 K/mcL LAB HEMETOLOGY METHOD 08/20/2024 8:19 AM [facility] RBC 3.50(L) 3.80 - 4.80 M/mcL LAB HEMETOLOGY METHOD 08/20/2024 8:19 AM [facility] Hemoglobin 10.7(L) 11.5 - 16.0 g/dL LAB HEMETOLOGY METHOD 08/20/2024 8:19 AM [facility] Hematocrit 33.3(L) 35.0 - 47.0 % LAB HEMETOLOGY METHOD 08/20/2024 8:19 AM [facility] MCV 96.5 79.0 - 98.0 FL LAB HEMETOLOGY METHOD 08/20/2024 8:19 AM [facility] MCH 31.0 27.0 - 32.0 pcg LAB HEMETOLOGY METHOD 08/20/2024 8:19 AM [facility] MCHC 32.1 32.0 - 37.0 g/dL LAB HEMETOLOGY METHOD 08/20/2024 8:19 AM [facility] RDW 14.0 11.0 - 15.0 % LAB HEMETOLOGY METHOD 08/20/2024 8:19 AM [facility] Platelets 231 130 - 400 K/mcL LAB HEMETOLOGY METHOD 08/20/2024 8:19 AM [facility] MPV 9.3 7.0 - 11.0 FL LAB HEMETOLOGY METHOD 08/20/2024 8:19 AM [facility] NRBC 0.0 <1.0 % LAB HEMETOLOGY METHOD 08/20/2024 8:19 AM [facility] NRBC Absolute 0.00 <0.10 K/mcL LAB HEMETOLOGY METHOD 08/20/2024 8:19 AM [facility] Blood Venous blood specimen / Unknown Venipuncture / Unknown 08/20/2024 6:15 AM EDT 08/20/2024 8:00 AM EDT us Araceli Maya MD LAB BLOOD ORDERABLES Fin al Result [facility] [address] [place] [address], * (ABNORMAL) Basic metabolic panel (08/20/2024 6:15 AM EDT) Sodium 134 133 - 145 mmol/L LAB CHEMISTRY METHOD 08/20/2024 8:42 AM [facility] Potassium 3.2(L) 3.5 - 5.5 mmol/L LAB CHEMISTRY METHOD 08/20/2024 8:42 AM [facility] Chloride 97 96 - 110 mmol/L LAB CHEMISTRY METHOD 08/20/2024 8:42 AM [facility] CO2 34(H) 21 - 32 mmol/L LAB CHEMISTRY METHOD 08/20/2024 8:42 AM [facility] Anion Gap 3 3 - 11 LAB CHEMISTRY METHOD 08/20/2024 8:42 AM [facility] Glucose 90 70 - 100 mg/dL LAB CHEMISTRY METHOD 08/20/2024 8:42 AM [facility] BUN 15 5 - 25 mg/dL LAB CHEMISTRY METHOD 08/20/2024 8:42 AM [facility] Creatinine 0.76 0.50 - 1.10 mg/dL LAB CHEMISTRY METHOD 08/20/2024 8:42 AM [facility] eGFR 81 >=60 mL/min/1. 73m2 LAB CHEMISTRY METHOD 08/20/2024 8:42 AM EDT [facility] Comment:Calculation based on the Chronic Kidney Disease Epidemiology Collaboration (CKD-EPI) equation refit without adjustment for race. BUN/Creatinine Ratio 19.7 LAB CHEMISTRY METHOD 08/20/2024 8:42 AM EDT [facility] Calcium 8.9 8.5 - 10.5 mg/dL LAB CHEMISTRY METHOD 08/20/2024 8:42 AM EDT [facility] Blood Venous blood specimen / Unknown Venipuncture / Unknown 08/20/2024 6:15 AM EDT 08/20/2024 8:00 AM EDT us Araceli Maya MD LAB BLOOD ORDERABLES Fin al Result [facility] [address] [place] [address], documented in this encounter Visit Diagnoses Diagnosis Essential (primary) hypertension Unspecified essential hypertension Anemia, unspecified Unspecified osteoarthritis, unspecified site documented in this encounter Care Teams Digital Marketing Program Manager Relationship Specialty Start Date End Date Vivian Massey DO [address] [place] [address] PCP - General Internal Medicine 07/21/17 documented as of this encounter
--- OUTSIDE RECORDS SUMMARY | 2024-11-25 09:43 | XMS_ITS | Encounter Summary ---
Author Organization [employer] Address [address] [facility] [address] [place] [address] Care Team Providers Care Tow Picker Name Role Phone Vivian Massey DO Primary Care Provider +1 [phone] Reason for Visit * Reason Onset Date Comments Nurse Triage 08/22/2023 Encounter Details Date Type Department Care Team ([facility] st Contact Info) Description 08/22/2023 Telephone [facility] [address] [place] [address] Vivian Massey DO [address] [place], [place] [phone] Nurse Triage Social History Tobacco Use Types [...] EDT Office Visit [facility] [address] [place] [address] Clara Iverson MD [address] [place] [address] documented as of this encounter Visit Diagnoses Not on filedocumented in this encounter Additional Health Concerns Assessment Noted Time PHQ-9 Depression Total Score: 8 06/06/19 24 2:37 PM EDT documented as of this encounter Care Teams Tow Picker Relationship Specialty Start Date End Date Vivian Massey DO [address] [place] [address] PCP - General Family Medicine 07/27/20 documented as of this encounter
--- OUTSIDE RECORDS SUMMARY | 2024-11-25 09:43 | XMS_ITS | Encounter Summary ---
Author Organization [employer] Address [address] [facility] [address] [place] [address] Care Team Providers Care Exchange Specialist Name Role Phone Vivian Massey DO Primary Care Provider + [phone] Reason for Visit * Reason Onset Date Comments Durable Medical Equipment 02/14/2023 Encounter Details Date Type Department Care Team ([facility] st Contact Info) Description 02/14/2023 Telephone [facility] [address] [place] [address] Vivian Massey DO [address] [place], [place] [phone] Durable Medical Equipment Social History Tobacco Use [...] Description 11/26/2024 10:45 AM EDT Office Visit [facility] [address] [place] [address] Clara Iverson MD [address] [place] [address] documented as of this encounter Visit Diagnoses Not on filedocumented in this encounter Additional Health Concerns Assessment Noted Time PHQ-9 Depression Total Score: 9 09/28/19 23 11:33 AM EDT documented as of this encounter Care Teams Exchange Specialist Relationship Specialty Start Date End Date Vivian Massey DO [address] [place] [address] PCP - General Family Medicine 5/17/21 documented as of this encounter
--- OUTSIDE RECORDS SUMMARY | 2024-11-25 09:43 | XMS_ITS | Encounter Summary ---
Author Organization [facility] Address [address] [place] [address] Care Team Providers Care Rotary Dryer Operator Name Role Phone Vivian Massey DO Primary Care Provider +1- [phone] Encounter Details Date Type Department Care Team (Late st Contact Info) Description 10/28/2024 Lab Requisition [facility] - Main Lab 299 [facility] [place] [address] Araceli Maya MD [address] [address] Unspecified osteoarthritis, unspecified site; Essential (primary) hypertension; Anemia, unspecified Social History Tobacco Use Types Packs/Day [...] documented as of this encounter Visit Diagnoses Diagnosis Unspecified osteoarthritis, unspecified site Essential (primary) hypertension Unspecified essential hypertension Anemia, unspecified documented in this encounter Care Teams Rotary Dryer Operator Relationship Specialty Start Date End Date Vivian Massey DO [address] [place], [place] PCP - General Internal Medicine 07/21/17 documented as of this encounter
== END 2024-11-22 08:35 | disposition home or self-care (01) ==
LOC: HO.HOSX 08:34
PROVIDERS: Visit Provider Physician Assistant
DX: Z13.89 Encounter for screening for other disorder (principal)

== ENCOUNTER 2024-11-26 11:54 | Outpatient (REF) | payer MEDICARE, MEDICAID, SELFPAY ==
[2024-11-26 14:12] LABS: Anion Gap 9 (12-20); Blood Urea Nitrogen 10 mg/dL (9-16); Calcium 8.9 mg/dL (8.4-10.2); Carbon Dioxide 32 mmol/L (22-29); Chloride 101 mmol/L (96-108); Estimated Glomerular Filt Rate > 60; Potassium 3.0 mmol/L (3.3-5.1); Sodium 139 mmol/L (135-145)
--- OUTSIDE RECORDS SUMMARY | 2024-11-26 16:08 | XMS_ITS | Encounter Summary ---
Author Organization [facility] Address [address] [place] [address] Care Team Providers Care Executive Coach Name Role Phone Vivian Massey DO Primary Care Provider +1- [phone] Encounter Details Date Type Department Care Team (Late st Contact Info) Description 08/12/2024 Lab Requisition [facility] - Main Lab 299 [facility] [place] [address] Araceli Maya MD [address] [phone] Essential (primary) hypertension; Anemia, unspecified; Unspecified osteoarthritis, [...] mmol/L LAB CHEMISTRY METHOD 08/13/2024 10:09 AM [facility] Potassium 3.7 3.5 - 5.5 mmol/L LAB CHEMISTRY METHOD 08/13/2024 10:09 AM [facility] Chloride 99 96 - 110 mmol/L LAB CHEMISTRY METHOD 08/13/2024 10:09 AM [facility] CO2 33(H) 21 - 32 mmol/L LAB CHEMISTRY METHOD 08/13/2024 10:09 AM [facility] Anion Gap 3 3 - 11 LAB CHEMISTRY METHOD 08/13/2024 10:09 AM [facility] Glucose 80 70 - 100 mg/dL LAB CHEMISTRY METHOD 08/13/2024 10:09 AM [facility] BUN 12 5 - 25 mg/dL LAB CHEMISTRY METHOD 08/13/2024 10:09 AM [facility] Creatinine 0.76 0.50 - 1.10 mg/dL LAB CHEMISTRY METHOD 08/13/2024 10:09 AM [facility] eGFR 81 >=60 mL/min/1. 73m2 LAB CHEMISTRY METHOD 08/13/2024 10:09 AM [facility] Comment:Calculation based on the Chronic Kidney Disease Epidemiology Collaboration (CKD-EPI) equation refit without adjustment for race. BUN/Creatinine Ratio 15.8 LAB CHEMISTRY METHOD 08/13/2024 10:09 AM [facility] Calcium 9.0 8.5 - 10.5 mg/dL LAB CHEMISTRY METHOD 08/13/2024 10:09 AM [facility] Blood Venous blood specimen / Unknown Venipuncture / Unknown 08/13/2024 6:05 AM EDT 08/13/2024 9:23 AM EDT Araceli Maya MD LAB BLOOD ORDERABLES Fin al Result [facility] [address] [place] [address], * (ABNORMAL) Complete blood count (08/13/2024 6:05 AM EDT) WBC 3.5(L) 4.8 - 10.8 K/mcL LAB HEMETOLOGY METHOD 08/13/2024 9:52 AM EDT [facility] RBC 3.50(L) 3.80 - 4.80 M/mcL LAB HEMETOLOGY METHOD 08/13/2024 9[facility] Hemoglobin 10.9(L) 11.5 - 16.0 g/dL LAB HEMETOLOGY METHOD 08/13/2024 9:52 AM [facility] Hematocrit 33.8(L) 35.0 - 47.0 % LAB HEMETOLOGY METHOD 08/13/2024 9:52 [facility] MCV 95.8 79.0 - 98.0 FL LAB HEMETOLOGY METHOD 08/13/2024 9:52 AM [facility] MCH 30.9 27.0 - 32.0 pcg LAB HEMETOLOGY METHOD 08/13/2024 9:52 AM EDT [facility] MCHC 32.2 32.0 - 37.0 g/dL LAB HEMETOLOGY METHOD 08/13/2024 9:52 [facility] RDW 14.1 11.0 - 15.0 % LAB HEMETOLOGY METHOD 08/13/2024 9:52 [facility] Platelets 224 130 - 400 K/mcL LAB HEMETOLOGY METHOD 08/13/2024 9:52 [facility] MPV 9.0 7.0 - 11.0 FL [...] al Result [facility] [address] [place] [address], documented in this encounter Visit Diagnoses Diagnosis Essential (primary) hypertension Unspecified essential hypertension Anemia, unspecified Unspecified osteoarthritis, unspecified site documented in this encounter Care Teams Executive Coach Relationship Specialty Start Date End Date Vivian Massey DO [address] [place], [place] PCP - General Internal Medicine 07/21/17 documented as of this encounter
--- OUTSIDE RECORDS SUMMARY | 2024-11-26 16:08 | XMS_ITS | Encounter Summary ---
Author Organization [facility] Address [address] [place] [address] Care Team Providers Care Gold Reclaimer Name Role Phone Vviian Massey Primary Care Provider +1- [phone] Encounter Details Date Type Department Care Team ([facility] st Contact Info) Description 09/15/2024 Lab Requisition [facility] - Main Lab [address] [facility] [place] [address] Annalisa Kulkarni PA [address] [place] [address] Altered mental status, unspecified Social [...] Urinalysis with reflex microscopic (09/14/2024 11:00 AM [facility]) Specific [place] Urine 1.028 1.003 - 1.030 LAB URINALYSIS - AUTOMATED METHOD 09/15/2024 10:40 AM [facility] pH, Urine 6.0 5.0 - 8.0 pH LAB URINALYSIS - AUTOMATED METHOD 09/15/2024 10:40 AM [facility] Leukocytes, Urine Moderate(A) Negative LAB URINALYSIS - AUTOMATED METHOD 09/15/2024 10:40 AM [facility] Nitrite, Urine Positive(A) Negative LAB URINALYSIS - AUTOMATED METHOD 09/15/2024 10:40 AM [facility] Protein, Urine 30(A) <=Trace mg/dL LAB URINALYSIS - AUTOMATED METHOD 09/15/2024 10:40 AM [facility] Glucose, Urine Negative Negative mg/dL LAB URINALYSIS - AUTOMATED METHOD 09/15/2024 10:40 AM [facility] Ketones, Urine Trace(A) Negative mg/dL LAB URINALYSIS - AUTOMATED METHOD 09/15/2024 10:40 AM [facility] Urobilinogen , Urine 1.0 0.2 - 1.0 mg/dL LAB URINALYSIS - AUTOMATED METHOD 09/15/2024 10:40 AM [facility] Bilirubin, Urine Negative Negative LAB URINALYSIS - AUTOMATED METHOD 09/15/2024 10:40 AM [facility] Blood, Urine Trace(A) Negative LAB URINALYSIS - AUTOMATED METHOD 09/15/2024 10:40 AM [facility] RBC, Urine 2.0 0 - 4 /HPF LAB URINALYSIS - AUTOMATED METHOD 09/15/2024 10:40 AM [facility] WBC, Urine 49.2(H) 0 - 4 /HPF LAB URINALYSIS - AUTOMATED METHOD 09/15/2024 10:40 AM EDT [facility] Squamous Epithelial, Urine 58 0 - 60 /LPF LAB URINALYSIS - AUTOMATED METHOD 09/15/2024 10:40 AM EDT [facility] Crystals, Urine MOD CALCIUM OXALATE /LPF LAB URINALYSIS - AUTOMATED METHOD 09/15/2024 10:40 AM EDT [facility] Bacteria, Urine Many(A) Negative /HPF LAB URINALYSIS - AUTOMATED METHOD 09/15/2024 10:40 AM EDT [facility] Hyaline Casts, Urine 0.0 0 - 3 /LPF LAB URINALYSIS - AUTOMATED METHOD 09/15/2024 10:40 AM EDT [facility] Urine Urine specimen obtained by clean catch procedure / Unknown Non-blood Collection / Unknown 09/14/2024 11:00 AM EDT 09/15/2024 8:28 AM EDT us Annalisa KELLY LAB URINE ORDERABLES Final Resul t [facility] [address] [place] [address], * (ABNORMAL) Culture urine (09/14/2024 11:00 AM EDT) Culture, Urine >100,000 CFU/mL Klebsiella pneumoniae ssp pneumoniae(A) RADHAMES 09/18/2024 7:38 AM EDT [facility] Comment: This is an edited result. Previous organism was Gram negative bacilli on 09/16/2024 at 1010 EDT. Culture, Urine 50,000-100,00 0 CFU/mL Aerococcus urinae(A) [facility]HAMES 09/18/2024 7:38 AM EDT [facility] Comment: Susceptibility testing not routinely [...] MICROBIOLOGY - GENERAL ORDER BABAR Final Result [facility] [address] [place] [address], documented in this encounter Visit Diagnoses Diagnosis Altered mental status, unspecified documented in this encounter Care Teams Gold Reclaimer Relationship Specialty Start Date End Date Vivian Massey DO [address] [place] [address] PCP - General Internal Medicine 07/21/17 documented as of this encounter
--- OUTSIDE RECORDS SUMMARY | 2024-11-26 16:08 | XMS_ITS | Encounter Summary ---
Author Organization [facility] Address [address] [place] [address] Care Team Providers Care Electric Wirer Name Role Phone Vivian Massey DO Primary Care Provider +1- [phone] Encounter Details Date Type Department Care Team ([facility] st Contact Info) Description 09/03/2024 Lab Requisition [facility] - Main Lab 299 [facility] [place] [address] Araceli Myaa MD [address] [phone] Essential (primary) hypertension; Anemia, unspecified; Unspecified osteoarthritis, [...] mmol/L LAB CHEMISTRY METHOD 09/03/2024 11:20 AM [facility] Potassium 3.2(L) 3.5 - 5.5 mmol/L LAB CHEMISTRY METHOD 09/03/2024 11:20 AM [facility] Chloride 100 96 - 110 mmol/L LAB CHEMISTRY METHOD 09/03/2024 11:20 AM [facility] CO2 33(H) 21 - 32 mmol/L LAB CHEMISTRY METHOD 09/03/2024 11:20 AM [facility] Anion Gap 8 3 - 11 LAB CHEMISTRY METHOD 09/03/2024 11:20 AM [facility] Glucose 84 70 - 100 mg/dL LAB CHEMISTRY METHOD 09/03/2024 11:20 AM [facility] BUN 15 5 - 25 mg/dL LAB CHEMISTRY METHOD 09/03/2024 11:20 AM [facility] Creatinine 0.89 0.50 - 1.10 mg/dL LAB CHEMISTRY METHOD 09/03/2024 11:20 AM [facility] eGFR 67 >=60 mL/min/1. 73m2 LAB CHEMISTRY METHOD 09/03/2024 11:20 AM [facility] Comment:Calculation based on the Chronic Kidney Disease Epidemiology Collaboration (CKD-EPI) equation refit without adjustment for race. BUN/Creatinine Ratio 16.9 LAB CHEMISTRY METHOD 09/03/2024 11:20 AM [facility] Calcium 8.8 8.5 - 10.5 mg/dL LAB CHEMISTRY METHOD 09/03/2024 11:20 AM [facility] Blood Venous blood specimen / Unknown Venipuncture / Unknown 09/03/2024 6:42 AM EDT 09/03/2024 9:10 AM EDT us Araceli Maya MD LAB BLOOD ORDERABLES Fin al Result [facility] [address] [place] [address], * (ABNORMAL) Complete blood count (09/03/2024 6:42 AM EDT) WBC 4.7(L) 4.8 - 10.8 K/mcL LAB HEMETOLOGY METHOD 09/03/2024 10:02 AM EDT [facility] RBC 3.50(L) 3.80 - 4.80 M/mcL LAB HEMETOLOGY METHOD 09/03/2024 10:02 AM [facility] Hemoglobin 10.8(L) 11.5 - 16.0 g/dL LAB HEMETOLOGY METHOD 09/03/2024 10:02 AM [facility] Hematocrit 34.4(L) 35.0 - 47.0 % LAB HEMETOLOGY METHOD 09/03/2024 10:02 AM [facility] MCV 97.2 79.0 - 98.0 FL LAB HEMETOLOGY METHOD 09/03/2024 10:02 AM [facility] MCH 30.5 27.0 - 32.0 pcg LAB HEMETOLOGY METHOD 09/03/2024 10:02 AM [facility] MCHC 31.4(L) 32.0 - 37.0 g/dL LAB HEMETOLOGY METHOD 09/03/2024 10:02 AM [facility] RDW 13.9 11.0 - 15.0 % LAB HEMETOLOGY METHOD 09/03/2024 10:02 AM [facility] Platelets 253 130 - 400 K/mcL LAB HEMETOLOGY METHOD 09/03/2024 10:02 AM [facility] MPV 9.1 7.0 - 11.0 FL LAB HEMETOLOGY METHOD 09/03/2024 10:02 AM EDT [facility] NRBC 0.0 <1.0 % LAB HEMETOLOGY METHOD 09/03/2024 10:02 AM EDT [facility] NRBC Absolute 0.00 <0.10 K/mcL LAB HEMETOLOGY METHOD 09/03/2024 10:02 AM EDT [facility] Blood Venous blood specimen / Unknown Venipuncture / Unknown 09/03/2024 6:42 AM EDT 09/03/2024 9:10 AM EDT us Araceli Maya MD LAB BLOOD ORDERABLES Fin al Result [facility] [address] [place] [address], documented in this encounter Visit Diagnoses Diagnosis Essential (primary) hypertension Unspecified essential hypertension Anemia, unspecified Unspecified osteoarthritis, unspecified site documented in this encounter Care Teams Electric Wirer Relationship Specialty Start Date End Date Vivian Massey DO [address] [place] [address] PCP - General Internal Medicine 07/21/17 documented as of this encounter
--- OUTSIDE RECORDS SUMMARY | 2024-11-26 16:08 | XMS_ITS | Encounter Summary ---
Author Organization [facility] Address [address] [place] [address] Care Team Providers Care Stoneworking Sander Name Role Phone Vivian Massey DO Primary Care Provider +1- [phone] Encounter Details Date Type Department Care Team (Late st Contact Info) Description 09/09/2024 Lab Requisition [facility] - Main Lab 299 [facility] [place] [address] Araceli Maya MD [address] [phone] Essential (primary) hypertension; Anemia, unspecified; Unspecified osteoarthritis, [...] Complete blood count (09/10/2024 6:14 AM EDT) [facility] Signature WBC 4.6(L) 4.8 - 10.8 K/mcL LAB HEMETOLOGY METHOD 09/10/2024 8:06 AM [facility] RBC 3.50(L) 3.80 - 4.80 M/mcL LAB HEMETOLOGY METHOD 09/10/2024 8:06 AM [facility] Hemoglobin 10.9(L) 11.5 - 16.0 g/dL LAB HEMETOLOGY METHOD 09/10/2024 8:06 AM [facility] LAB Hematocrit 34.1(L) 35.0 - 47.0 % LAB HEMETOLOGY METHOD 09/10/2024 8:06 AM [facility] LAB MCV 98.0 79.0 - 98.0 FL LAB HEMETOLOGY METHOD 09/10/2024 8:06 AM [facility] LAB MCH 31.3 27.0 - 32.0 pcg LAB HEMETOLOGY METHOD 09/10/2024 8:06 AM [facility] LAB MCHC 32.0 32.0 - 37.0 g/dL LAB HEMETOLOGY METHOD 09/10/2024 8:06 AM [facility] LAB RDW 14.4 11.0 - 15.0 % LAB HEMETOLOGY METHOD 09/10/2024 8:06 AM [facility] LAB Platelets 239 130 - 400 K/mcL LAB HEMETOLOGY METHOD 09/10/2024 8:06 AM [facility] MPV 9.1 7.0 - 11.0 FL LAB HEMETOLOGY METHOD 09/10/2024 8:06 AM [facility] LAB NRBC 0.0 <1.0 % LAB HEMETOLOGY METHOD 09/10/2024 8:06 AM [facility] LAB NRBC Absolute 0.00 <0.10 K/mcL LAB HEMETOLOGY METHOD 09/10/2024 8:06 AM [facility] Blood Venous blood specimen / Unknown Venipuncture / Unknown 09/10/2024 6:14 AM EDT 09/10/2024 7:30 AM EDT us Araceli Maya MD LAB BLOOD ORDERABLES Fin al Result [facility] [address] [place] [address], [place] [phone] * (ABNORMAL) Basic metabolic panel (09/10/2024 6:14 AM EDT) Sodium 138 133 - 145 mmol/L LAB CHEMISTRY METHOD 09/10/2024 8:28 AM [facility] Potassium 3.6 3.5 - 5.5 mmol/L LAB CHEMISTRY METHOD 09/10/2024 8:28 AM [facility] Chloride 100 96 - 110 mmol/L LAB CHEMISTRY METHOD 09/10/2024 8:28 AM [facility] CO2 33(H) 21 - 32 mmol/L LAB CHEMISTRY METHOD 09/10/2024 8:28 AM [facility] Anion Gap 5 3 - 11 LAB CHEMISTRY METHOD 09/10/2024 8:28 AM [facility] Glucose 86 70 - 100 mg/dL LAB CHEMISTRY METHOD 09/10/2024 8:28 AM [facility] BUN 18 5 - 25 mg/dL LAB CHEMISTRY METHOD 09/10/2024 8:28 AM [facility] Creatinine 0.81 0.50 - 1.10 mg/dL LAB CHEMISTRY METHOD 09/10/2024 8:28 AM [facility] LAB eGFR 75 >=60 mL/min/1. 73m2 LAB CHEMISTRY METHOD 09/10/2024 8:28 AM EDT [facility] Comment:Calculation based on the Chronic Kidney Disease Epidemiology Collaboration (CKD-EPI) equation refit without adjustment for race. BUN/Creatinine Ratio 22.2 LAB CHEMISTRY METHOD 09/10/2024 8:28 AM EDT [facility] Calcium 8.5 8.5 - 10.5 mg/dL LAB CHEMISTRY METHOD 09/10/2024 8:28 AM EDT [facility] Blood Venous blood specimen / Unknown Venipuncture / Unknown 09/10/2024 6:14 AM EDT 09/10/2024 7:30 AM EDT us Araceli Maya MD LAB BLOOD ORDERABLES Fin al Result [facility] [address] [place] [address], documented in this encounter Visit Diagnoses Diagnosis Essential (primary) hypertension Unspecified essential hypertension Anemia, unspecified Unspecified osteoarthritis, unspecified site documented in this encounter Care Teams Stoneworking Sander Relationship Specialty Start Date End Date Vivian Massey DO [address] [place] [address] PCP - General Internal Medicine 07/21/17 documented as of this encounter
--- OUTSIDE RECORDS SUMMARY | 2024-11-26 16:08 | XMS_ITS | Encounter Summary ---
Author Organization [facility] Address [address] [place] [address] Care Team Providers Care Nuisance Wildlife Control Operator Name Role Phone Vivian Massey DO Primary Care Provider +1- [phone] Encounter Details Date Type Department Care Team (Late st Contact Info) Description 10/07/2024 Lab Requisition [facility] - Main Lab [address] [facility] [place] [address] Araceli Maya MD [address] [phone] Essential (primary) hypertension; Anemia, unspecified; Unspecified osteoarthritis, [...] Complete blood count (10/08/2024 5:15 AM EDT) [facility] WBC 5.4 4.8 - 10.8 K/mcL LAB HEMETOLOGY METHOD 10/08/2024 8:04 AM [facility] LAB RBC 3.30(L) 3.80 - 4.80 M/mcL LAB HEMETOLOGY METHOD 10/08/2024 8:04 AM [facility] LAB Hemoglobin 10.2(L) 11.5 - 16.0 g/dL LAB HEMETOLOGY METHOD 10/08/2024 8:04 AM [facility] LAB Hematocrit 30.8(L) 35.0 - 47.0 % LAB HEMETOLOGY METHOD 10/08/2024 8:04 AM [facility] LAB MCV 94.5 79.0 - 98.0 FL LAB HEMETOLOGY METHOD 10/08/2024 8:04 AM [facility] LAB MCH 31.3 27.0 - 32.0 pcg LAB HEMETOLOGY METHOD 10/08/2024 8:04 AM [facility] LAB MCHC 33.1 32.0 - 37.0 g/dL LAB HEMETOLOGY METHOD 10/08/2024 8:04 AM [facility] LAB RDW 14.5 11.0 - 15.0 % LAB HEMETOLOGY METHOD 10/08/2024 8:04 AM [facility] LAB Platelets 222 130 - 400 K/mcL LAB HEMETOLOGY METHOD 10/08/2024 8:04 AM [facility] LAB MPV 9.2 7.0 - 11.0 FL LAB HEMETOLOGY METHOD 10/08/2024 8:04 AM [facility] LAB NRBC 0.0 <1.0 % LAB HEMETOLOGY METHOD 10/08/2024 8:04 AM [facility] LAB NRBC Absolute 0.00 <0.10 K/mcL LAB HEMETOLOGY METHOD 10/08/2024 8:04 AM [facility] LAB Blood Venous blood specimen / Unknown Venipuncture / Unknown 10/08/2024 5:15 AM EDT 10/08/2024 7:47 AM EDT us Araceli Maya MD LAB BLOOD ORDERABLES Fin al Result [facility] LAB [address] [place] [address], * (ABNORMAL) Basic metabolic panel (10/08/2024 5:15 AM EDT) Sodium 131(L) 133 - 145 mmol/L LAB CHEMISTRY METHOD 10/08/2024 9:09 AM [facility] Potassium 3.6 3.5 - 5.5 mmol/L LAB CHEMISTRY METHOD 10/08/2024 9:09 AM [facility] Chloride 93(L) 96 - 110 mmol/L LAB CHEMISTRY METHOD 10/08/2024 9:09 AM [facility] CO2 33(H) 21 - 32 mmol/L LAB CHEMISTRY METHOD 10/08/2024 9:09 AM [facility] LAB Anion Gap 5 3 - 11 LAB CHEMISTRY METHOD 10/08/2024 9:09 AM [facility] Glucose 79 70 - 100 mg/dL LAB CHEMISTRY METHOD 10/08/2024 9:09 AM [facility] BUN 14 5 - 25 mg/dL LAB CHEMISTRY METHOD 10/08/2024 9:09 AM [facility] LAB Creatinine 0.83 0.50 - 1.10 mg/dL LAB CHEMISTRY METHOD 10/08/2024 9:09 AM [facility] LAB eGFR 73 >=60 mL/min/1. 73m2 LAB CHEMISTRY METHOD 10/08/2024 9:09 AM EDT [facility] Comment:Calculation based on the Chronic Kidney Disease Epidemiology Collaboration (CKD-EPI) equation refit without adjustment for race. BUN/Creatinine Ratio 16.9 LAB CHEMISTRY METHOD 10/08/2024 9:09 AM EDT [facility] Calcium 8.7 8.5 - 10.5 mg/dL LAB CHEMISTRY METHOD 10/08/2024 9:09 AM EDT [facility] Blood Venous blood specimen / Unknown Venipuncture / Unknown 10/08/2024 5:15 AM EDT 10/08/2024 7:47 AM EDT us Araceli Maya MD LAB BLOOD ORDERABLES Fin al Result [facility] [address] [place] [address], documented in this encounter Visit Diagnoses Diagnosis Essential (primary) hypertension Unspecified essential hypertension Anemia, unspecified Unspecified osteoarthritis, unspecified site documented in this encounter Care Teams Nuisance Wildlife Control Operator Relationship Specialty Start Date End Date Vivian Massey DO [address] [place] [address] PCP - General Internal Medicine 07/21/17 documented as of this encounter
--- OUTSIDE RECORDS SUMMARY | 2024-11-26 16:08 | XMS_ITS | Encounter Summary ---
Author Organization [facility] Address [address] [place] [address] Care Team Providers Care Fiber Optic Assembly Worker Name Role Phone Vivian Massey DO Primary Care Provider +1- [phone] Encounter Details Date Type Department Care Team (Late st Contact Info) Description 10/28/2024 Lab Requisition [facility] - Main Lab 299 [facility] [place] [address] Araceli Maya MD [address] [address] Unspecified osteoarthritis, unspecified site; Essential (primary) hypertension; [...] unspecified documented in this encounter Care Teams Fiber Optic Assembly Worker Relationship Specialty Start Date End Date Vivian Massey DO [address] [place], [place] PCP - General Internal Medicine 07/21/17 documented as of this encounter
--- OUTSIDE RECORDS SUMMARY | 2024-11-26 16:08 | XMS_ITS | Encounter Summary ---
Author Organization [facility] Address [address] [place] [address] Care Team Providers Care Chalker Soles Name Role Phone Vivian Massey DO Primary Care Provider +1- [phone] Encounter Details Date Type Department Care Team (Late st Contact Info) Description 08/26/2024 Lab Requisition [facility] - Main Lab 299 [facility] [place] [address] Araceli Maya MD [address] [phone] Essential (primary) hypertension; Anemia, unspecified; Unspecified osteoarthritis, [...] Complete blood count (08/27/2024 6:06 AM EDT) [facility] WBC 3.2(L) 4.8 - 10.8 K/mcL LAB HEMETOLOGY METHOD 08/27/2024 8:13 AM [facility] RBC 3.80 3.80 - 4.80 M/mcL LAB HEMETOLOGY METHOD 08/27/2024 8:13 AM [facility] Hemoglobin 11.8 11.5 - 16.0 g/dL LAB HEMETOLOGY METHOD 08/27/2024 8:13 AM [facility] LAB Hematocrit 36.4 35.0 - 47.0 % LAB HEMETOLOGY METHOD 08/27/2024 8:13 AM [facility] LAB MCV 95.5 79.0 - 98.0 FL LAB HEMETOLOGY METHOD 08/27/2024 8:13 AM [facility] LAB MCH 31.0 27.0 - 32.0 pcg LAB HEMETOLOGY METHOD 08/27/2024 8:13 AM [facility] LAB MCHC 32.4 32.0 - 37.0 g/dL LAB HEMETOLOGY METHOD 08/27/2024 8:13 AM [facility] LAB RDW 14.0 11.0 - 15.0 % LAB HEMETOLOGY METHOD 08/27/2024 8:13 AM [facility] LAB Platelets 259 130 - 400 K/mcL LAB HEMETOLOGY METHOD 08/27/2024 8:13 AM [facility] LAB MPV 9.2 7.0 - 11.0 FL LAB HEMETOLOGY METHOD 08/27/2024 8:13 AM [facility] NRBC 0.0 <1.0 % LAB HEMETOLOGY METHOD 08/27/2024 8:13 AM [facility] LAB NRBC Absolute 0.00 <0.10 K/mcL LAB HEMETOLOGY METHOD 08/27/2024 8:13 AM [facility] Blood Venous blood specimen / Unknown Venipuncture / Unknown 08/27/2024 6:06 AM EDT 08/27/2024 7:07 AM EDT us Araceli Maya MD LAB BLOOD ORDERABLES Fin al Result [facility] [address] [place] [address], [place] [phone] * (ABNORMAL) Basic metabolic panel (08/27/2024 6:06 AM EDT) Sodium 137 133 - 145 mmol/L LAB CHEMISTRY METHOD 08/27/2024 8:42 AM [facility] Potassium 3.9 3.5 - 5.5 mmol/L LAB CHEMISTRY METHOD 08/27/2024 8:42 AM [facility] Chloride 97 96 - 110 mmol/L LAB CHEMISTRY METHOD 08/27/2024 8:42 AM [facility] CO2 34(H) 21 - 32 mmol/L LAB CHEMISTRY METHOD 08/27/2024 8:42 AM [facility] Anion Gap 6 3 - 11 LAB CHEMISTRY METHOD 08/27/2024 8:42 AM [facility] Glucose 83 70 - 100 mg/dL LAB CHEMISTRY METHOD 08/27/2024 8:42 AM [facility] BUN 13 5 - 25 mg/dL LAB CHEMISTRY METHOD 08/27/2024 8:42 AM [facility] Creatinine 0.86 0.50 - 1.10 mg/dL LAB CHEMISTRY METHOD 08/27/2024 8:42 AM [facility] LAB eGFR 70 >=60 mL/min/1. 73m2 LAB CHEMISTRY METHOD 08/27/2024 8:42 AM EDT [facility] Comment:Calculation based on the Chronic Kidney Disease Epidemiology Collaboration (CKD-EPI) equation refit without adjustment for race. BUN/Creatinine Ratio 15.1 LAB CHEMISTRY METHOD 08/27/2024 8:42 AM EDT [facility] Calcium 8.5 8.5 - 10.5 mg/dL LAB CHEMISTRY METHOD 08/27/2024 8:42 AM EDT [facility] Blood Venous blood specimen / Unknown Venipuncture / Unknown 08/27/2024 6:06 AM EDT 08/27/2024 7:07 AM EDT us Araceli Maya MD LAB BLOOD ORDERABLES Fin al Result [facility] [address] [place] [address], documented in this encounter Visit Diagnoses Diagnosis Essential (primary) hypertension Unspecified essential hypertension Anemia, unspecified Unspecified osteoarthritis, unspecified site documented in this encounter Care Teams Chalker Soles Relationship Specialty Start Date End Date Vivian Massey DO [address] [place] [address] PCP - General Internal Medicine 07/21/17 documented as of this encounter
--- OUTSIDE RECORDS SUMMARY | 2024-11-26 16:08 | XMS_ITS | Clinical Summary ---
Author Organization [facility] Address [address] [address] Phone Care Team Providers Care Guest Services Coordinator Name Role Phone Clementine Masseyfer Primary Care Provider [phone] Social History Tobacco Use Types Packs/Day Years [...] topic Medical Devices Not on file Insurance [facility] MEDIC[facility] REPLACEMENT MEDICARE PART A & B [facility] MED[facility]PLACEMENT MEDICARE PART A & B [facility] MED[facility]PLACEMENT MEDICARE PART A & B [facility] [address] [place] [address] [facility] MEDICARE REPLACEMENT MEDICARE PART A & B [facility] [address] [place] [address] [facility] MEDICARE REPLACEMENT MEDICARE PART A & B [facility] MED[facility]PLACEMENT MEDICARE PART A & B [facility] Care Teams Guest Services Coordinator Relationship Specialty Start Date End Date Vivian Massey DO [address] [place] [address] PCP - General Family Medicine 01/09/23 Additional Source Comments The information contained in this document represents components of the legal health record. It is not the complete legal health record.[facility]
--- OUTSIDE RECORDS SUMMARY | 2024-11-26 16:08 | XMS_ITS | Encounter Summary ---
Author Organization [facility] Address [address] [place] [address] Care Team Providers Care Manager Neonatal Name Role Phone Vivian Massey DO Primary Care Provider [phone]- [phone] Encounter Details Date Type Department Care Team (Late st Contact Info) Description 08/03/2024 Lab Requisition [facility] - Main Lab 299 [facility] [place] [address] Araceli Maya MD [address] [phone] Essential (primary) hypertension; Anemia, unspecified; Unspecified osteoarthritis, [...] mmol/L LAB CHEMISTRY METHOD 08/06/2024 10:58 AM [facility] Potassium 3.6 3.5 - 5.5 mmol/L LAB CHEMISTRY METHOD 08/06/2024 10:58 AM [facility] Chloride 95(L) 96 - 110 mmol/L LAB CHEMISTRY METHOD 08/06/2024 10:58 AM [facility] CO2 31 21 - 32 mmol/L LAB CHEMISTRY METHOD 08/06/2024 10:58 AM [facility] Anion Gap 5 3 - 11 LAB CHEMISTRY METHOD 08/06/2024 10:58 AM [facility] Glucose 75 70 - 100 mg/dL LAB CHEMISTRY METHOD 08/06/2024 10:58 AM [facility] BUN 11 5 - 25 mg/dL LAB CHEMISTRY METHOD 08/06/2024 10:58 AM [facility] Creatinine 0.76 0.50 - 1.10 mg/dL LAB CHEMISTRY METHOD 08/06/2024 10:58 AM [facility] eGFR 81 >=60 mL/min/1. 73m2 LAB CHEMISTRY METHOD 08/06/2024 10:58 AM [facility] Comment:Calculation based on the Chronic Kidney Disease Epidemiology Collaboration (CKD-EPI) equation refit without adjustment for race. BUN/Creatinine Ratio 14.5 LAB CHEMISTRY METHOD 08/06/2024 10:58 AM [facility] Calcium 8.6 8.5 - 10.5 mg/dL LAB CHEMISTRY METHOD 08/06/2024 10:58 AM [facility] Blood Venous blood specimen / Unknown Venipuncture / Unknown 08/06/2024 6:57 AM EDT 08/06/2024 10:58 AM EDT us Araceli Maya MD LAB BLOOD ORDERABLES Fin al Result [facility] [address] [place] [address], * (ABNORMAL) Complete blood count (08/06/2024 6:57 AM EDT) WBC 3.3(L) 4.8 - 10.8 K/mcL LAB HEMETOLOGY METHOD 08/06/2024 11:00 AM EDT [facility] RBC 3.70(L) 3.80 - 4.80 M/mcL LAB HEMETOLOGY METHOD 08/06/2024 11:00 AM [facility] Hemoglobin 11.4(L) 11.5 - 16.0 g/dL LAB HEMETOLOGY METHOD 08/06/2024 11:00 AM [facility] Hematocrit 34.9(L) 35.0 - 47.0 % LAB HEMETOLOGY METHOD 08/06/2024 11:00 AM [facility] MCV 95.6 79.0 - 98.0 FL LAB HEMETOLOGY METHOD 08/06/2024 11:00 [facility] MCH 31.2 27.0 - 32.0 pcg LAB HEMETOLOGY METHOD 08/06/2024 11[facility] MCHC 32.7 32.0 - 37.0 g/dL LAB HEMETOLOGY METHOD 08/06/2024 11:00 AM [facility] RDW 13.6 11.0 - 15.0 % LAB HEMETOLOGY METHOD 08/06/2024 11:00 AM [facility] Platelets 262 130 - 400 K/mcL LAB HEMETOLOGY METHOD 08/06/2024 11:00 AM [facility] MPV 9.1 7.0 - 11.0 FL LAB HEMETOLOGY METHOD 08/06/2024 11:00 AM EDT [facility] NRBC 0.0 <1.0 % LAB HEMETOLOGY METHOD 08/06/2024 11:00 AM EDT [facility] NRBC Absolute 0.00 <0.10 K/mcL LAB HEMETOLOGY METHOD 08/06/2024 11:00 AM EDT [facility] Blood Venous blood specimen / Unknown Venipuncture / Unknown 08/06/2024 6:57 AM EDT 08/06/2024 10:59 AM EDT us Araceli Maya MD LAB BLOOD ORDERABLES Fin al Result [facility] [address] [place] [address], documented in this encounter Visit Diagnoses Diagnosis Essential (primary) hypertension Unspecified essential hypertension Anemia, unspecified Unspecified osteoarthritis, unspecified site documented in this encounter Care Teams Manager Neonatal Relationship Specialty Start Date End Date Vivian Massey DO [address] [place] [address] PCP - General Internal Medicine 07/21/17 documented as of this encounter
--- OUTSIDE RECORDS SUMMARY | 2024-11-26 16:08 | XMS_ITS | Encounter Summary ---
Author Organization [facility] Address [address] [place] [address] Care Team Providers Care Trim Sawyer Name Role Phone Vivian Massey DO Primary Care Provider +1- [phone] Encounter Details Date Type Department Care Team (Late st Contact Info) Description 08/19/2024 Lab Requisition [facility] - Main Lab 299 [facility] [place] [address] Araceli Maya MD [address] [phone] Essential (primary) hypertension; Anemia, unspecified; Unspecified osteoarthritis, [...] Complete blood count (08/20/2024 6:15 AM EDT) [facility] Signature WBC 3.9(L) 4.8 - 10.8 K/mcL LAB HEMETOLOGY METHOD 08/20/2024 8:[address] [facility] RBC 3.50(L) 3.80 - 4.80 M/mcL LAB HEMETOLOGY METHOD 08/20/2024 8:[address] [facility] Hemoglobin 10.7(L) 11.5 - 16.0 g/dL LAB HEMETOLOGY METHOD 08/20/2024 8:[address] [facility] Hematocrit 33.3(L) 35.0 - 47.0 % LAB HEMETOLOGY METHOD 08/20/2024 8:[address] [facility] MCV 96.5 79.0 - 98.0 FL LAB HEMETOLOGY METHOD 08/20/2024 8:[address] [facility] MCH 31.0 27.0 - 32.0 pcg LAB HEMETOLOGY METHOD 08/20/2024 8:[address] [facility] MCHC 32.1 32.0 - 37.0 g/dL LAB HEMETOLOGY METHOD 08/20/2024 8:[address] [facility] RDW 14.0 11.0 - 15.0 % LAB HEMETOLOGY METHOD 08/20/2024 8:[address] [facility] Platelets 231 130 - 400 K/mcL LAB HEMETOLOGY METHOD 08/20/2024 8:[address] [facility] MPV 9.3 7.0 - 11.0 FL LAB HEMETOLOGY METHOD 08/20/2024 8:[address] [facility] NRBC 0.0 <1.0 % LAB HEMETOLOGY METHOD 08/20/2024 8:[address] [facility] NRBC Absolute 0.00 <0.10 K/mcL LAB HEMETOLOGY METHOD 08/20/2024 8:[address] [facility] Blood Venous blood specimen / Unknown Venipuncture / Unknown 08/20/2024 6:15 AM EDT 08/20/2024 8:00 AM EDT us Araceli Maya MD LAB BLOOD ORDERABLES Fin al Result [facility] [address] [place] [address], * (ABNORMAL) Basic metabolic panel (08/20/2024 6:15 AM EDT) Sodium 134 133 - 145 mmol/L LAB CHEMISTRY METHOD 08/20/2024 8:[address] [facility] Potassium 3.2(L) 3.5 - 5.5 mmol/L LAB CHEMISTRY METHOD 08/20/2024 8:[address] [facility] Chloride 97 96 - 110 mmol/L LAB CHEMISTRY METHOD 08/20/2024 8:[address] [facility] CO2 34(H) 21 - 32 mmol/L LAB CHEMISTRY METHOD 08/20/2024 8:[address] [facility] Anion Gap 3 3 - 11 LAB CHEMISTRY METHOD 08/20/2024 8:[address] [facility] Glucose 90 70 - 100 mg/dL LAB CHEMISTRY METHOD 08/20/2024 8:[address] [facility] BUN 15 5 - 25 mg/dL LAB CHEMISTRY METHOD 08/20/2024 8:[address] [facility] Creatinine 0.76 0.50 - 1.10 mg/dL LAB CHEMISTRY METHOD 08/20/2024 8:[address] [facility] eGFR 81 >=60 mL/min/1. 73m2 LAB CHEMISTRY METHOD 08/20/2024 8:42 AM EDT [facility] Comment:Calculation based on the Chronic Kidney Disease Epidemiology Collaboration (CKD-EPI) equation refit without adjustment for race. BUN/Creatinine Ratio 19.7 LAB CHEMISTRY METHOD 08/20/2024 8:42 AM EDT [facility] Calcium 8.9 8.5 - 10.5 mg/dL LAB CHEMISTRY METHOD 08/20/2024 8:42 AM EDT [facility] Blood Venous blood specimen / Unknown Venipuncture / Unknown 08/20/2024 6:15 AM EDT 08/20/2024 8:00 AM EDT us Araceli Maya MD LAB BLOOD ORDERABLES Fin al Result [facility] [address] [place] [address], documented in this encounter Visit Diagnoses Diagnosis Essential (primary) hypertension Unspecified essential hypertension Anemia, unspecified Unspecified osteoarthritis, unspecified site documented in this encounter Care Teams Trim Sawyer Relationship Specialty Start Date End Date Vivian Massey DO [address] [place] [address] PCP - General Internal Medicine 07/21/17 documented as of this encounter
--- OUTSIDE RECORDS SUMMARY | 2024-11-26 16:08 | XMS_ITS | Encounter Summary ---
Author Organization [facility] Address [address] [place] [address] Care Team Providers Care Hoof And Shoe Inspector Name Role Phone Vivian Massey DO Primary Care Provider +1- [phone] Encounter Details Date Type Department Care Team (Late st Contact Info) Description 07/20/2024 Lab Requisition [facility] - Main Lab [address] [facility] [place] [address] Araceli Maya MD [address] [phone] Anemia, unspecified; Essential (primary) hypertension; Vitamin D [...] mmol/L LAB CHEMISTRY METHOD 07/20/2024 10:59 AM [facility] Potassium 3.9 3.5 - 5.5 mmol/L LAB CHEMISTRY METHOD 07/20/2024 10:59 AM [facility] Chloride 85(L) 96 - 110 mmol/L LAB CHEMISTRY METHOD 07/20/2024 10:59 AM [facility] CO2 31 21 - 32 mmol/L LAB CHEMISTRY METHOD 07/20/2024 10:59 AM [facility] Anion Gap 8 3 - 11 LAB CHEMISTRY METHOD 07/20/2024 10:59 AM [facility] Glucose 78 70 - 100 mg/dL LAB CHEMISTRY METHOD 07/20/2024 10:59 AM [facility] BUN 13 5 - 25 mg/dL LAB CHEMISTRY METHOD 07/20/2024 10:59 AM [facility] Creatinine 0.63 0.50 - 1.10 mg/dL LAB CHEMISTRY METHOD 07/20/2024 10:59 AM [facility] eGFR 92 >=60 mL/min/1. 73m2 LAB CHEMISTRY METHOD 07/20/2024 10:59 AM [facility] Comment:Calculation based on the Chronic Kidney Disease Epidemiology Collaboration (CKD-EPI) equation refit without adjustment for race. BUN/Creatinine Ratio 20.6 LAB CHEMISTRY METHOD 07/20/2024 10:59 AM [facility] Calcium 8.5 8.5 - 10.5 mg/dL LAB CHEMISTRY METHOD 07/20/2024 10:59 AM [facility] Blood Venous blood specimen / Unknown Venipuncture / Unknown 07/20/2024 6:07 AM EDT 07/20/2024 9:41 AM EDT Araceli Maya MD LAB BLOOD ORDERABLES Fin al Result [facility] [address] [place] [address], * (ABNORMAL) Complete blood count (07/20/2024 6:07 AM EDT) WBC 3.8(L) 4.8 - 10.8 K/mcL LAB HEMETOLOGY METHOD 07/20/2024 10:30 AM EDT [facility] RBC 3.60(L) 3.80 - 4.80 M/mcL LAB HEMETOLOGY [facility] Hemoglobin 11.4(L) 11.5 - 16.0 g/dL LAB HEMETOLOGY METHOD 07/20/2024 10:30 AM [facility] Hematocrit 33.3(L) 35.0 - 47.0 % LAB HEMETOLOGY METHOD [facility] MCV 93.3 79.0 - 98.0 FL LAB HEMETOLOGY METHOD [facility] MCH 31.9 27.0 - 32.0 pcg LAB HEMETOLOGY METHOD 07/20/2024 10:30 AM EDT [facility] MCHC 34.2 32.0 - 37.0 g/dL LAB HEMETOLOGY METHOD 07/20[facility] RDW 12.7 11.0 - 15.0 % LAB HEMETOLOGY METHOD 07/20[facility]2024 [facility] Platelets 194 130 - 400 K/mcL LAB HEMETOLOGY METHOD [facility]/20[facility]24 [facility] MPV 9.6 7.0 - 11.0 FL LAB HEMETOLOGY METHOD 07/20/2024 10:30 AM EDT [facility] NRBC 0.0 <1.0 % LAB HEMETOLOGY METHOD 07/20/2024 10:30 AM EDT [facility] NRBC Absolute 0.00 <0.10 K/mcL LAB HEMETOLOGY METHOD 07/20/2024 10:30 AM EDT [facility] Blood Venous blood specimen / Unknown Venipuncture / Unknown 07/20/2024 6:07 AM EDT 07/20/2024 9:41 AM EDT us Araceli Maya MD LAB BLOOD ORDERABLES Fin al Result [facility] [address] [place] [address], documented in this encounter Visit Diagnoses Diagnosis Anemia, unspecified Essential (primary) hypertension Unspecified essential hypertension Vitamin D deficiency, unspecified documented in this encounter Care Teams Hoof And Shoe Inspector Relationship Specialty Start Date End Date Vivian Massey DO [address] [place], [place] PCP - General Internal Medicine 07/21/17 documented as of this encounter
--- OUTSIDE RECORDS SUMMARY | 2024-11-26 16:08 | XMS_ITS | Encounter Summary ---
Author Organization [facility] Address [address] [place] [address] Care Team Providers Care Workers Compensation Claims Assistant Name Role Phone Vivian Massey Primary Care Provider +1- [phone] Encounter Details Date Type Department Care Team ([facility] st Contact Info) Description 10/07/[address] [facility] - Main Lab [address] [facility] [place] [address] Araceli Maya MD [address] [phone] Urinary tract infection, site not specified Social [...] reflex microscopic (10/06/2024 8:10 AM EDT) Specific [place] Urine 1.022 1.003 - 1.030 LAB URINALYSIS - AUTOMATED METHOD 10/07/2024 12:13 PM [facility] pH, Urine 7.0 5.0 - 8.0 pH LAB URINALYSIS - AUTOMATED METHOD 10/07/2024 12:13 PM [facility] Leukocytes, Urine Large(A) Negative LAB URINALYSIS - AUTOMATED METHOD 10/07/2024 12:13 PM [facility] Nitrite, Urine Positive(A) Negative LAB URINALYSIS - AUTOMATED METHOD 10/07/2024 12:13 PM [facility] Protein, Urine 100(A) <=Trace mg/dL LAB URINALYSIS - AUTOMATED METHOD 10/07/2024 12:13 PM [facility] Glucose, Urine Negative Negative mg/dL LAB URINALYSIS - AUTOMATED METHOD 10/07/2024 12:13 PM [facility] Ketones, Urine Trace(A) Negative mg/dL LAB URINALYSIS - AUTOMATED METHOD 10/07/2024 12:13 PM [facility] Urobilinogen , Urine 1.0 0.2 - 1.0 mg/dL LAB URINALYSIS - AUTOMATED METHOD 10/07/2024 12:13 PM [facility] Bilirubin, Urine Negative Negative LAB URINALYSIS - AUTOMATED METHOD 10/07/2024 12:13 PM [facility] Blood, Urine Large(A) Negative LAB URINALYSIS - AUTOMATED METHOD 10/07/2024 12:13 PM [facility] RBC, Urine 20.0(H) 0 - 4 /HPF LAB URINALYSIS - AUTOMATED METHOD 10/07/2024 12:13 PM [facility] WBC, Urine 212.9(H) 0 - 4 /HPF LAB URINALYSIS - AUTOMATED METHOD 10/07/2024 12:13 PM EDT [facility] Squamous Epithelial, Urine 70(H) 0 - 60 /LPF LAB URINALYSIS - AUTOMATED METHOD 10/07/2024 12:13 PM EDT [facility] Non-Squamous Epithelial, Urine 2-5 TRANSITIONAL EPI /LPF LAB URINALYSIS - AUTOMATED METHOD 10/07/2024 12:13 PM EDT [facility] Crystals, Urine MOD CALCIUM OXALATE /LPF LAB URINALYSIS - AUTOMATED METHOD 10/07/2024 12:13 PM EDT [facility] Bacteria, Urine Moderate(A) Negative /HPF LAB URINALYSIS - AUTOMATED METHOD 10/07/2024 12:13 PM EDT [facility] Hyaline Casts, Urine 1.6 0 - 3 /LPF LAB URINALYSIS - AUTOMATED METHOD 10/07/2024 12:13 PM [facility] Urine Urine specimen obtained by clean catch procedure / Unknown Non-blood Collection / Unknown 10/06/2024 8:10 AM EDT 10/07/2024 11:17 AM EDT Araceli Maya MD LAB URINE ORDERABLES Fin al Result [facility] [address] [place] [address], * (ABNORMAL) Culture urine (10/06/2024 8:10 AM EDT) Culture, Urine >=100,000 CFU/mL Escherichia coli(A) RADHAMES 10/10/2024 7:49 AM EDT [facility] Comment: This is an edited result. Previous organism was Gram negative bacilli on 10/08/2024 at 0843 EDT. Culture, Urine 10,000-49,000 CFU/mL Morganella morganii ssp morganii(A) RADHAMES 10/10/2024 7:49 AM EDT [facility] Comment: The organism value for [...] - GENER AL ORDERABLES Final Result [facility] [address] [place] [address], documented in this encounter Visit Diagnoses Diagnosis Urinary tract infection, site not specified documented in this encounter Care Teams Workers Compensation Claims Assistant Relationship Specialty Start Date End Date Vivian Masesy DO [address] [place] [address] PCP - General Internal Medicine 07/21/17 documented as of this encounter
--- OUTSIDE RECORDS SUMMARY | 2024-11-26 16:08 | XMS_ITS | Clinical Summary ---
Author Organization [facility] Address [address] [place] [address] Care Team Providers Care Customer Service Voice Name Role Phone Vidal Pinzon MD Primary Care Provider [phone] Medications Medication Sig Dispensed Refills Start Date [...] age to complete this topic Care Teams Customer Service Voice Relationship Specialty Start Date End Date Vidal Pinzon MD [address] [place] [address] PCP - General Family Medicine 02/18/20
--- OUTSIDE RECORDS SUMMARY | 2024-11-26 16:08 | XMS_ITS | Encounter Summary ---
Author Organization [facility] Address [address] [place] [address] Care Team Providers Care Dredge Engineer Name Role Phone Vivian Massey DO Primary Care Provider [phone]- [phone] Encounter Details Date Type Department Care Team (Late st Contact Info) Description 07/22/2024 Lab Requisition [facility] - Main Lab [address] [facility] [place] [address] Araceli Maya MD [address] [phone] Essential (primary) hypertension; Anemia, unspecified; Unspecified osteoarthritis, [...] mmol/L LAB CHEMISTRY METHOD 07/23/2024 10:46 AM [facility] Potassium 3.6 3.5 - 5.5 mmol/L LAB CHEMISTRY METHOD 07/23/2024 10:46 AM [facility] Chloride 92(L) 96 - 110 mmol/L LAB CHEMISTRY METHOD 07/23/2024 10:46 AM [facility] CO2 31 21 - 32 mmol/L LAB CHEMISTRY METHOD 07/23/2024 10:46 AM [facility] Anion Gap 7 3 - 11 LAB CHEMISTRY METHOD 07/23/2024 10:46 AM [facility] Glucose 82 70 - 100 mg/dL LAB CHEMISTRY METHOD 07/23/2024 10:46 AM [facility] BUN 19 5 - 25 mg/dL LAB CHEMISTRY METHOD 07/23/2024 10:46 AM [facility] Creatinine 0.84 0.50 - 1.10 mg/dL LAB CHEMISTRY METHOD 07/23/2024 10:46 AM [facility] eGFR 72 >=60 mL/min/1. 73m2 LAB CHEMISTRY METHOD 07/23/2024 10:46 AM [facility] Comment:Calculation based on the Chronic Kidney Disease Epidemiology Collaboration (CKD-EPI) equation refit without adjustment for race. BUN/Creatinine Ratio 22.6 LAB CHEMISTRY METHOD 07/23/2024 10:46 AM [facility] Calcium 8.8 8.5 - 10.5 mg/dL LAB CHEMISTRY METHOD 07/23/2024 10:46 AM [facility] Blood Venous blood specimen / Unknown Venipuncture / Unknown 07/23/2024 7:15 AM EDT 07/23/2024 10:01 AM EDT us Araceli Maya MD LAB BLOOD ORDERABLES Fin al Result [facility] [address] [place] [address], * (ABNORMAL) Complete blood count (07/23/2024 7:15 [...] % LAB HEMETOLOGY METHOD 07/23/2024 10:27 [facility] Platelets 287 130 - 400 K/mcL [...] Result [facility] [address] [place] [address], documented in this encounter Visit Diagnoses Diagnosis Essential (primary) hypertension Unspecified essential hypertension Anemia, unspecified Unspecified osteoarthritis, unspecified site documented in this encounter Care Teams Dredge Engineer Relationship Specialty Start Date End Date Vivian Massey DO [address] [place] [address] PCP - General Internal Medicine 07/21/17 documented as of this encounter
--- OUTSIDE RECORDS SUMMARY | 2024-11-26 16:08 | XMS_ITS | Encounter Summary ---
Author Organization [facility] Address [address] [place] [address] Care Team Providers Care Drum Drier Name Role Phone Vivian Massey DO Primary Care Provider [phone]- [phone] Encounter Details Date Type Department Care Team (Late st Contact Info) Description 07/29/2024 Lab Requisition [facility] - Main Lab [address] [facility] [place] [address] Araceli Maya MD [address] [phone] Essential (primary) hypertension; Anemia, unspecified; Unspecified osteoarthritis, [...] mmol/L LAB CHEMISTRY METHOD 07/30/2024 12:09 PM [facility] Potassium 3.9 3.5 - 5.5 mmol/L LAB CHEMISTRY METHOD 07/30/2024 12:09 PM [facility] Chloride 96 96 - 110 mmol/L LAB CHEMISTRY METHOD 07/30/2024 12:09 PM [facility] CO2 30 21 - 32 mmol/L LAB CHEMISTRY METHOD 07/30/2024 12:09 PM [facility] Anion Gap 7 3 - 11 LAB CHEMISTRY METHOD 07/30/2024 12:09 PM [facility] Glucose 71 70 - 100 mg/dL LAB CHEMISTRY METHOD 07/30/2024 12:09 PM [facility] BUN 13 5 - 25 mg/dL LAB CHEMISTRY METHOD 07/30/2024 12:09 PM [facility] Creatinine 0.80 0.50 - 1.10 mg/dL LAB CHEMISTRY METHOD 07/30/2024 12:09 PM [facility] eGFR 76 >=60 mL/min/1. 73m2 LAB CHEMISTRY METHOD 07/30/2024 12:09 PM [facility] Comment:Calculation based on the Chronic Kidney Disease Epidemiology Collaboration (CKD-EPI) equation refit without adjustment for race. BUN/Creatinine Ratio 16.3 LAB CHEMISTRY METHOD 07/30/2024 12:09 PM [facility] Calcium 8.3(L) 8.5 - 10.5 mg/dL LAB CHEMISTRY METHOD 07/30/2024 12:09 PM [facility] Blood Venous blood specimen / Unknown Venipuncture / Unknown 07/30/2024 6:05 AM EDT 07/30/2024 10:35 AM EDT us Whit Laba Elder MD LAB BLOOD ORDERABLES Fin al Result [facility] [address] [place] [address], * (ABNORMAL) Complete blood count (07/30/2024 6:05 AM EDT) WBC 4.6(L) 4.8 - 10.8 K/mcL LAB HEMETOLOGY METHOD 07/30/2024 10:49 AM EDT [facility] RBC 3.40(L) 3.80 - 4.80 M/mcL LAB HEMETOLOGY METHOD 07/30/2024 10:49 AM [facility] Hemoglobin 10.5(L) 11.5 - 16.0 g/dL LAB HEMETOLOGY METHOD 07/30/2024 10:49 AM [facility] Hematocrit 32.1(L) 35.0 - 47.0 % LAB HEMETOLOGY METHOD 07/30/2024 10:49 AM [facility] MCV 95.3 79.0 - 98.0 FL LAB HEMETOLOGY METHOD 07/30/2024 10:49 AM [facility] MCH 31.2 27.0 - 32.0 pcg LAB HEMETOLOGY METHOD 07/30/2024 [facility] MCHC 32.7 32.0 - 37.0 g/dL LAB HEMETOLOGY METHOD 07/30/2024 10:49 [facility] RDW 13.5 11.0 - 15.0 % LAB HEMETOLOGY METHOD 07/30/2024 10:49 [facility] Platelets 366 130 - 400 K/mcL LAB HEMETOLOGY METHOD 07/30/2024 10:49 [facility] MPV 8.9 7.0 - 11.0 FL LAB HEMETOLOGY METHOD 07/30/2024 10:49 AM EDT [facility] NRBC 0.0 <1.0 % LAB HEMETOLOGY METHOD 07/30/2024 10:49 AM EDT [facility] NRBC Absolute 0.00 <0.10 K/mcL LAB HEMETOLOGY METHOD 07/30/2024 10:49 AM EDT [facility] Blood Venous blood specimen / Unknown Venipuncture / Unknown 07/30/2024 6:05 AM EDT 07/30/2024 10:35 AM EDT us Araceli Maya MD LAB BLOOD ORDERABLES Fin al Result [facility] [address] [place] [address], documented in this encounter Visit Diagnoses Diagnosis Essential (primary) hypertension Unspecified essential hypertension Anemia, unspecified Unspecified osteoarthritis, unspecified site documented in this encounter Care Teams Drum Drier Relationship Specialty Start Date End Date Vivian Massey DO [address] [place], [place] PCP - General Internal Medicine 07/21/17 documented as of this encounter
--- OUTSIDE RECORDS SUMMARY | 2024-11-26 16:08 | XMS_ITS | Encounter Summary ---
Author Organization [facility] Address [address] [place] [address] Care Team Providers Care Artificial Leather Calender Operator Name Role Phone Vivian Massey Primary Care Provider +1- [phone] Encounter Details Date Type Department Care Team ([facility] st Contact Info) Description 09/05/2024 Lab Requisition [facility] - Main Lab [address] [place] [address] Araceli Maya MD [address] [address] Hypokalemia Social History Tobacco Use Types Packs/Day [...] CHEMISTRY METHOD 09/06/2024 7:53 AM EDT [facility] Potassium 3.6 3.5 - 5.5 mmol/L LAB CHEMISTRY METHOD 09/06/2024 7:53 AM [facility] Chloride 99 96 - 110 mmol/L LAB CHEMISTRY METHOD 09/06/2024 7:53 AM [facility] CO2 33(H) 21 - 32 mmol/L LAB CHEMISTRY METHOD 09/06/2024 7:53 AM [facility] Anion Gap 6 3 - 11 LAB CHEMISTRY METHOD 09/06/2024 7:53 AM [facility] Glucose 86 70 - 100 mg/dL LAB CHEMISTRY METHOD 09/06/2024 7:53 AM [facility] BUN 12 5 - 25 mg/dL LAB CHEMISTRY METHOD 09/06/2024 7:53 AM [facility] Creatinine 0.83 0.50 - 1.10 mg/dL LAB CHEMISTRY METHOD 09/06/2024 7:53 AM [facility] eGFR 73 >=60 mL/min/1. 73m2 LAB CHEMISTRY METHOD 09/06/2024 7:53 AM [facility] Comment:Calculation based on the Chronic Kidney Disease Epidemiology Collaboration (CKD-EPI) equation refit without adjustment for race. BUN/Creatinine Ratio 14.5 LAB CHEMISTRY METHOD 09/06/2024 7:53 AM [facility] Calcium 9.0 8.5 - 10.5 mg/dL LAB CHEMISTRY METHOD 09/06/2024 7:53 AM [facility] Blood Venous blood specimen / Unknown Venipuncture / Unknown 09/06/2024 5:51 AM EDT 09/06/2024 6:58 AM EDT us Araceli Maya MD LAB BLOOD ORDERABLES Fin al Result [facility] [address] [place] [address], documented in this encounter Visit Diagnoses Diagnosis Hypokalemia Hypopotassemia documented in this encounter Care Teams Artificial Leather Calender Operator Relationship Specialty Start Date End Date Vivian Massey DO [address] [place] [address] PCP - General Internal Medicine 07/21/17 documented as of this encounter
--- OUTSIDE RECORDS SUMMARY | 2024-11-26 16:08 | XMS_ITS | Clinical Summary ---
Author Organization [address] [facility] Address [address] [place] [address] Phone Care Team Providers Care Aba Therapist Name Role Phone Vivian Massey Primary Care Provider +1- [phone] Medications Mounjaro 5 mg/0.5 mL injection INJECT ONE PEN (=5MG) SUBCUTANEOUSLY ONCE A WEEK DIRECTED 2 mL 11/09/19 25 Active tirzepatide (Mounjaro) 5 mg/0.5 mL injection Inject 0.5 mL (5 mg total) under the skin every 7 (seven) days. 2 mL 10/08/19 25 2024 Discontinued Encounters Date Type Department Care Team Description 10/28/2024 Lab Requisition [facility] [address] [place] [phone] Araceli Maya MD Unspecified osteoarthritis, unspecified site; Essential (primary) hypertension; Anemia, unspecified 10/21/2024 Lab Requisition [facility] [address] [place] [phone] Araceli Maya MD Essential (primary) hypertension; Anemia, unspecified; Unspecified osteoarthritis, unspecified site 10/14/2024 Lab Requisition [facility] [address] [place] [phone] Araceli Maya MD Essential (primary) hypertension; Anemia, unspecified; Unspecified osteoarthritis, unspecified site 10/07/2024 Lab Requisition [facility] [address] [place] [phone] Araceli Maya MD Essential (primary) hypertension; Anemia, unspecified; Unspecified osteoarthritis, unspecified site 10/07/2024 Lab Requisition [facility] [address] [place] [address] Araceli Maya MD Urinary tract infection, site not specified 10/02/2024 Lab Requisition [facility] [address] [place] [address] Araceli Maya MD Hypokalemia 09/30/2024 Lab Requisition [facility] [address] [place] [address] Araceli Maya MD Essential (primary) hypertension; Anemia, unspecified; Unspecified osteoarthritis, unspecified site 09/25/2024 Lab Requisition [facility] [address] [place] [phone] Araceli Maya MD Hypokalemia 09/23/2024 Lab Requisition [facility] [address] [place] [address] Araceli Maya MD Essential (primary) hypertension; Anemia, unspecified; Unspecified osteoarthritis, unspecified site 09/18/2024 Lab Requisition [facility] [address] [place] [phone] Araceli Maya MD Hypokalemia 09/16/2024 Lab Requisition [facility] [address] [place] [address] Araceli Maya MD Essential (primary) hypertension; Anemia, unspecified; Unspecified osteoarthritis, unspecified site 09/15/2024 Lab Requisition [facility] [address] [place] [phone] Annalisa Kulkarni PA Altered mental status, unspecified 09/09/2024 Lab Requisition [facility] Lab [address] [place] [phone] Araceli Maya MD Essential (primary) hypertension; Anemia, unspecified; Unspecified osteoarthritis, unspecified site 09/05/2024 Lab Requisition [facility] Main Lab [address] [place] [phone] Araceli Maya MD Hypokalemia 09/03/2024 Lab Requisition [facility] Lab [address] [place] [phone] Araceli Maya MD Essential (primary) hypertension; Anemia, unspecified; Unspecified osteoarthritis, unspecified site 08/26/2024 Lab Requisition [facility] [address] [place] [phone] Araceli Maya MD Essential (primary) hypertension; Anemia, unspecified; Unspecified osteoarthritis, unspecified site from Last 3 Months Immunizations Name Administration Dates Next Due Moderna SARS-CoV-2 COVID-19, mRNA, LNP-S, preservative free 07/13/2020,06/15/2020 Surgical History Surgery Date Site/Laterality Comments BREAST REDUCTION 1997 PROCEDURE: MO BREAST REDUCTION SECTION 1982 PROCEDURE: HISTORICAL BLADDER SUSPENSION PROCEDURE: HISTORICAL BLADDER SUSPENSION; COMMENT: Marcus Corin operation GASTRIC BYPASS 2005 PROCEDURE: MO GASTRIC RSTCV W/BYP W/SM INT RCNSTJ LIMIT [...] K/mcL LAB HEMETOLOGY METHOD 10/22/2024 9:10 AM [facility] LAB RBC 3.40(L) 3.80 - 4.80 M/mcL LAB HEMETOLOGY METHOD 10/22/2024 9:10 AM [facility] LAB Hemoglobin 10.6(L) 11.5 - 16.0 g/dL LAB HEMETOLOGY METHOD 10/22/2024 9:10 AM [facility] LAB Hematocrit 32.5(L) 35.0 - 47.0 % LAB HEMETOLOGY METHOD 10/22/2024 9:10 AM [facility] LAB MCV 95.0 79.0 - 98.0 FL LAB HEMETOLOGY METHOD 10/22/2024 9:10 AM [facility] LAB MCH 31.0 27.0 - 32.0 pcg LAB HEMETOLOGY METHOD 10/22/2024 9:10 AM [facility] LAB MCHC 32.6 32.0 - 37.0 g/dL LAB HEMETOLOGY METHOD 10/22/2024 9:10 AM [facility] LAB RDW 14.6 11.0 - 15.0 % LAB HEMETOLOGY METHOD 10/22/2024 9:10 AM [facility] LAB Platelets 254 130 - 400 K/mcL LAB HEMETOLOGY METHOD 10/22/2024 9:10 AM [facility] LAB MPV 8.9 7.0 - 11.0 FL LAB HEMETOLOGY METHOD 10/22/2024 9:10 AM [facility] LAB NRBC 0.0 <1.0 % LAB HEMETOLOGY METHOD 10/22/2024 9:10 AM T [facility] LAB NRBC Absolute 0.00 <0.10 K/mcL LAB HEMETOLOGY METHOD 10/22/2024 9:10 AM [facility] LAB Blood Venous blood specimen / Unknown Venipuncture / Unknown 10/22/2024 6:15 AM EDT 10/22/2024 8:58 AM EDT us Araceli Maya MD LAB BLOOD ORDERABLES Fin al Result [facility] LAB [address] [place] [address], * (ABNORMAL) Basic metabolic panel (10/22/2024 6:15 AM EDT) Only the most recent of13 resultswithin the time period is included. Sodium 137 133 - 145 mmol/L LAB CHEMISTRY METHOD 10/22/2024 9:29 AM [facility] LAB Potassium 3.6 3.5 - 5.5 mmol/L LAB CHEMISTRY METHOD 10/22/2024 9:29 AM [facility] LAB Chloride 101 96 - 110 mmol/L LAB CHEMISTRY METHOD 10/22/2024 9:29 AM [facility] LAB CO2 34(H) 21 - 32 mmol/L LAB CHEMISTRY METHOD 10/22/2024 9:29 AM [facility] LAB Anion Gap 2(L) 3 - 11 LAB CHEMISTRY METHOD 10/22/2024 9:29 AM [facility] LAB Glucose 74 70 - 100 mg/dL LAB CHEMISTRY METHOD 10/22/2024 9:29 AM [facility] LAB BUN 14 5 - 25 mg/dL LAB CHEMISTRY METHOD 10/22/2024 9:29 AM [facility] LAB Creatinine 0.89 0.50 - 1.10 mg/dL LAB CHEMISTRY METHOD 10/22/2024 9:29 AM EDT [facility] LAB eGFR 67 >=60 mL/min/1. 73m2 LAB CHEMISTRY METHOD 10/22/2024 9:29 AM EDT [facility] LAB Comment:Calculation based on the Chronic Kidney Disease Epidemiology Collaboration (CKD-EPI) equation refit without adjustment for race. BUN/Creatinine Ratio 15.7 LAB CHEMISTRY METHOD 10/22/2024 9:29 AM EDT [facility] LAB Calcium 8.5 8.5 - 10.5 mg/dL LAB CHEMISTRY METHOD 10/22/2024 9:29 AM [facility] LAB Blood Venous blood specimen / Unknown Venipuncture / Unknown 10/22/2024 6:15 AM EDT 10/22/2024 8:58 AM EDT Araceli Maya MD LAB BLOOD ORDERABLES Fin al Result [facility] LAB [address] [place] [address], * (ABNORMAL) Urinalysis with reflex microscopic (10/06/2024 8:10 AM EDT) Only the most recent of2 resultswithin the time period is included. Specific [place] Urine 1.022 1.003 - 1.030 LAB URINALYSIS - AUTOMATED METHOD 10/07/2024 12:13 PM T [facility] LAB pH, Urine 7.0 5.0 - 8.0 pH LAB URINALYSIS - AUTOMATED METHOD 10/07/2024 12:13 PM [facility] LAB Leukocytes, Urine Large(A) Negative LAB URINALYSIS - AUTOMATED METHOD 10/07/2024 12:13 PM [facility] Nitrite, Urine Positive(A) Negative LAB [facility]IS - [facility]OMATED METHOD [facility] Protein, Urine 100(A) <=Trace mg/dL LAB URINALYSIS - AUTOMATED METHOD 10/07/2024 12:13 PM [facility] Glucose, Urine Negative Negative mg/dL LAB URINALYSIS - AUTOMATED METHOD 10/07/2024 12:13 PM [facility] Ketones, Urine Trace(A) Negative mg/dL LAB URINALYSIS - AUTOMATED METHOD 10/07/2024 12:13 PM [facility] LAB Urobilinogen , Urine 1.0 0.2 - 1.0 mg/dL LAB URINALYSIS - AUTOMATED METHOD 10/07/2024 12:13 PM [facility] Bilirubin, Urine Negative Negative LAB URINALYSIS - AUTOMATED METHOD 10/07/2024 12:13 PM [facility] Blood, Urine Large(A) Negative LAB URINALYSIS - AUTOMATED METHOD 10/07/2024 12:13 PM [facility] LAB RBC, Urine 20.0(H) 0 - 4 /HPF LAB URINALYSIS - AUTOMATED METHOD 10/07/2024 12:13 PM [facility] LAB WBC, Urine 212.9(H) 0 - 4 /HPF LAB URINALYSIS - AUTOMATED METHOD 10/07/2024 12:13 PM [facility] LAB Squamous Epithelial, Urine 70(H) 0 - 60 /LPF LAB URINALYSIS - AUTOMATED METHOD 10/07/2024 12:13 PM [facility] LAB Non-Squamous Epithelial, Urine 2-5 TRANSITIONAL EPI /LPF LAB URINALYSIS - AUTOMATED METHOD 10/07/2024 12:13 PM [facility] Crystals, Urine MOD CALCIUM OXALATE /LPF LAB URINALYSIS - AUTOMATED METHOD 10/07/2024 12:13 PM [facility] Bacteria, Urine Moderate(A) Negative /HPF LAB URINALYSIS - AUTOMATED METHOD 10/07/2024 12:13 PM [facility] Hyaline Casts, Urine 1.6 0 - 3 /LPF LAB URINALYSIS - AUTOMATED METHOD 10/07/2024 12:13 PM EDT [facility] LAB Urine Urine specimen obtained by clean catch procedure / Unknown Non-blood Collection / Unknown 10/06/2024 8:10 AM EDT 10/07/2024 11:17 AM EDT us Araceli Maya MD LAB URINE ORDERABLES Fin al Result [facility] LAB [address] [place] [address], [place] [phone] * (ABNORMAL) Culture urine (10/06/2024 8:10 AM EDT) Only the most recent of2 resultswithin the time period is included. Culture, Urine >=100,000 CFU/mL Escherichia coli(A) RADHAMES 10/10/2024 7:49 AM EDT [facility] LAB Comment: This is an edited result. Previous organism was Gram negative bacilli on 10/08/2024 at 0843 EDT. Culture, Urine 10,000-49,000 CFU/mL Morganella morganii ssp morganii(A) RADHAMES 10/10/2024 7:49 AM EDT [facility] LAB Comment: The organism value [...] MICROBIOLOGY - GENER AL ORDERABLES Final Result [facility] [address] [place] [address], from Last 3 Months Insurance MEDICAID - [place] [employer] MEDICARE Care Teams Aba Therapist Relationship Specialty Start Date End Date Vivian Massey DO [address] [place] [address] PCP - General Internal Medicine 07/21/17
--- OUTSIDE RECORDS SUMMARY | 2024-11-26 16:08 | XMS_ITS | Encounter Summary ---
Author Organization [facility] Address [address] [place] [address] Care Team Providers Care Head Sampler Name Role Phone Vivian Massey Primary Care Provider +1- [phone] Encounter Details Date Type Department Care Team ([facility] st Contact Info) Description 10/02/2024 Lab Requisition [facility] Lab [address] [place] [address] Araceli Maya MD [address] [address] Hypokalemia Social History Tobacco Use Types Packs/Day [...] CHEMISTRY METHOD 10/03/2024 8:28 AM EDT [facility] Potassium 3.8 3.5 - 5.5 mmol/L LAB CHEMISTRY METHOD 10/03/2024 8:[address] [facility] Chloride 101 96 - 110 mmol/L LAB CHEMISTRY METHOD 10/03/2024 8:[address] [facility] CO2 34(H) 21 - 32 mmol/L LAB CHEMISTRY METHOD 10/03/2024 8:[address] [facility] Anion Gap 3 3 - 11 LAB CHEMISTRY METHOD 10/03/2024 8:[address] [facility] Glucose 79 70 - 100 mg/dL LAB CHEMISTRY METHOD 10/03/2024 8:[address] [facility] BUN 15 5 - 25 mg/dL LAB CHEMISTRY METHOD 10/03/2024 8:[address] [facility] Creatinine 0.88 0.50 - 1.10 mg/dL LAB CHEMISTRY METHOD 10/03/2024 8:[address] [facility] eGFR 68 >=60 mL/min/1. 73m2 LAB CHEMISTRY METHOD 10/03/2024 8:[address] [facility] LAB Comment:Calculation based on the Chronic Kidney Disease Epidemiology Collaboration (CKD-EPI) equation refit without adjustment for race. BUN/Creatinine Ratio 17.0 LAB CHEMISTRY METHOD 10/03/2024 8:[address] [facility] Calcium 9.1 8.5 - 10.5 mg/dL LAB CHEMISTRY METHOD 10/03/2024 8:[address] [facility] Blood Venous blood specimen / Unknown Venipuncture / Unknown 10/03/2024 5:51 AM EDT 10/03/2024 7:39 AM EDT us Araceli Maya MD LAB BLOOD ORDERABLES Fin al Result [facility] [address] [place] [address], documented in this encounter Visit Diagnoses Diagnosis Hypokalemia Hypopotassemia documented in this encounter Care Teams Head Sampler Relationship Specialty Start Date End Date Vivian Massey DO [address] [place] [address] PCP - General Internal Medicine 07/21/17 documented as of this encounter
--- OUTSIDE RECORDS SUMMARY | 2024-11-26 16:08 | XMS_ITS | Encounter Summary ---
Author Organization [facility] Address [address] [place] [address] Care Team Providers Care Lawn Care Worker Name Role Phone Vivian Massey DO Primary Care Provider +1- [phone] Encounter Details Date Type Department Care Team (Late st Contact Info) Description 09/30/2024 Lab Requisition [facility] Lab [address] [facility] [place] [address] Araceli Maya MD [address] [id number] Essential (primary) hypertension; Anemia, unspecified; Unspecified osteoarthritis, [...] Complete blood count (10/01/2024 5:36 AM EDT) [facility] WBC 4.2(L) 4.8 - 10.8 K/mcL LAB HEMETOLOGY METHOD 10/01/2024 7:51 AM [facility] LAB RBC 3.40(L) 3.80 - 4.80 M/mcL LAB HEMETOLOGY METHOD 10/01/2024 7:51 AM [facility] LAB Hemoglobin 10.8(L) 11.5 - 16.0 g/dL LAB HEMETOLOGY METHOD 10/01/2024 7:51 AM [facility] LAB Hematocrit 33.5(L) 35.0 - 47.0 % LAB HEMETOLOGY METHOD 10/01/2024 7:51 AM [facility] LAB MCV 97.7 79.0 - 98.0 FL LAB HEMETOLOGY METHOD 10/01/2024 7:51 AM [facility] LAB MCH 31.5 27.0 - 32.0 pcg LAB HEMETOLOGY METHOD 10/01/2024 7:51 AM [facility] LAB MCHC 32.2 32.0 - 37.0 g/dL LAB HEMETOLOGY METHOD 10/01/2024 7:51 AM [facility] LAB RDW 14.5 11.0 - 15.0 % LAB HEMETOLOGY METHOD 10/01/2024 7:51 AM [facility] LAB Platelets 243 130 - 400 K/mcL LAB HEMETOLOGY METHOD 10/01/2024 7:51 AM [facility] LAB MPV 9.4 7.0 - 11.0 FL LAB HEMETOLOGY METHOD 10/01/2024 7:51 AM [facility] LAB NRBC 0.0 <1.0 % LAB HEMETOLOGY METHOD 10/01/2024 7:51 AM [facility] LAB NRBC Absolute 0.00 <0.10 K/mcL LAB HEMETOLOGY METHOD 10/01/2024 7:51 AM [facility] LAB Blood Venous blood specimen / Unknown Venipuncture / Unknown 10/01/2024 5:36 AM EDT 10/01/2024 6:57 AM EDT us Araceli Maya MD LAB BLOOD ORDERABLES Fin al Result [facility] [address] [place] [address], [place] [phone] * (ABNORMAL) Basic metabolic panel (10/01/2024 5:36 AM EDT) Sodium 138 133 - 145 mmol/L LAB CHEMISTRY METHOD 10/01/2024 8:12 AM [facility] LAB Potassium 3.3(L) 3.5 - 5.5 mmol/L LAB CHEMISTRY METHOD 10/01/2024 8:12 AM [facility] LAB Chloride 100 96 - 110 mmol/L LAB CHEMISTRY METHOD 10/01/2024 8:12 AM [facility] LAB CO2 32 21 - 32 mmol/L LAB CHEMISTRY METHOD 10/01/2024 8:12 AM [facility] LAB Anion Gap 6 3 - 11 LAB CHEMISTRY METHOD 10/01/2024 8:12 AM [facility] LAB Glucose 82 70 - 100 mg/dL LAB CHEMISTRY METHOD 10/01/2024 8:12 AM [facility] BUN 14 5 - 25 mg/dL LAB CHEMISTRY METHOD 10/01/2024 8:12 AM [facility] LAB Creatinine 0.81 0.50 - 1.10 mg/dL LAB CHEMISTRY METHOD 10/01/2024 8:12 AM [facility] LAB eGFR 75 >=60 mL/min/1. 73m2 LAB CHEMISTRY METHOD 10/01/2024 8:12 AM EDT [facility] LAB Comment:Calculation based on the Chronic Kidney Disease Epidemiology Collaboration (CKD-EPI) equation refit without adjustment for race. BUN/Creatinine Ratio 17.3 LAB CHEMISTRY METHOD 10/01/2024 8:12 AM EDT [facility] LAB Calcium 8.8 8.5 - 10.5 mg/dL LAB CHEMISTRY METHOD 10/01/2024 8:12 AM EDT [facility] LAB Blood Venous blood specimen / Unknown Venipuncture / Unknown 10/01/2024 5:36 AM EDT 10/01/2024 6:57 AM EDT us Araceli Maya MD LAB BLOOD ORDERABLES Fin al Result [facility] [address] [place] [address], documented in this encounter Visit Diagnoses Diagnosis Essential (primary) hypertension Unspecified essential hypertension Anemia, unspecified Unspecified osteoarthritis, unspecified site documented in this encounter Care Teams Lawn Care Worker Relationship Specialty Start Date End Date Vivian Massey DO [address] [place] [address] PCP - General Internal Medicine 07/21/17 documented as of this encounter
--- OUTSIDE RECORDS SUMMARY | 2024-11-26 16:08 | XMS_ITS | Encounter Summary ---
Author Organization [facility] Address [address] [place] [address] Care Team Providers Care Data Entry Operator Name Role Phone Vivian Massey Primary Care Provider +1- [phone] Encounter Details Date Type Department Care Team ([facility] st Contact Info) Description 09/18/2024 Lab Requisition [facility] Lab [address] [place] [address] Araceli Maya MD [address] [address] Hypokalemia Social History Tobacco Use Types Packs/Day [...] LAB CHEMISTRY METHOD 09/18/2024 8:19 AM EDT [facility] Potassium 3.6 3.5 - 5.5 mmol/L LAB CHEMISTRY METHOD 09/18/2024 8:19 AM [facility] Chloride 97 96 - 110 mmol/L LAB CHEMISTRY METHOD 09/18/2024 8:19 AM [facility] CO2 31 21 - 32 mmol/L LAB CHEMISTRY METHOD 09/18/2024 8:19 AM [facility] LAB Anion Gap 6 3 - 11 LAB CHEMISTRY METHOD 09/18/2024 8:19 AM [facility] LAB Glucose 82 70 - 100 mg/dL LAB CHEMISTRY METHOD 09/18/2024 8:19 AM [facility] BUN 11 5 - 25 mg/dL LAB CHEMISTRY METHOD 09/18/2024 8:19 AM [facility] LAB Creatinine 0.69 0.50 - 1.10 mg/dL LAB CHEMISTRY METHOD 09/18/2024 8:19 AM [facility] LAB eGFR 90 >=60 mL/min/1. 73m2 LAB CHEMISTRY METHOD 09/18/2024 8:19 AM [facility] LAB Comment:Calculation based on the Chronic Kidney Disease Epidemiology Collaboration (CKD-EPI) equation refit without adjustment for race. BUN/Creatinine Ratio 15.9 LAB CHEMISTRY METHOD 09/18/2024 8:19 AM [facility] LAB Calcium 9.0 8.5 - 10.5 mg/dL LAB CHEMISTRY METHOD 09/18/2024 8:19 AM [facility] LAB Blood Venous blood specimen / Unknown Venipuncture / Unknown 09/18/2024 5:51 AM EDT 09/18/2024 6:44 AM EDT us Araceli Maya MD LAB BLOOD ORDERABLES Fin al Result [facility] LAB [address] [place] [address], documented in this encounter Visit Diagnoses Diagnosis Hypokalemia Hypopotassemia documented in this encounter Care Teams Data Entry Operator Relationship Specialty Start Date End Date Vivian Massey DO [address] [place], [place] PCP - General Internal Medicine 07/21/17 documented as of this encounter
--- OUTSIDE RECORDS SUMMARY | 2024-11-26 16:08 | XMS_ITS | Encounter Summary ---
Author Organization [facility] [address] Address [address] [place] [address] Care Team Providers Care Parts Picker Name Role Phone Vivian Massey Primary Care Provider +1- [phone] Encounter Details Date Type Department Care Team ([facility] st Contact Info) Description 09/25/[address] [facility] - Main Lab [address] [place] [address] Araceli Maya MD [address] [address] Hypokalemia Social History Tobacco Use Types Packs/Day [...] CHEMISTRY METHOD 09/26/2024 9:09 AM EDT [facility] Potassium 3.6 3.5 - 5.5 mmol/L LAB CHEMISTRY METHOD 09/26/2024 9:09 AM [facility] LAB Chloride 100 96 - 110 mmol/L LAB CHEMISTRY METHOD 09/26/2024 9:09 AM [facility] LAB CO2 33(H) 21 - 32 mmol/L LAB CHEMISTRY METHOD 09/26/2024 9:09 AM [facility] LAB Anion Gap 3 3 - 11 LAB CHEMISTRY METHOD 09/26/2024 9:09 AM [facility] LAB Glucose 76 70 - 100 mg/dL LAB CHEMISTRY METHOD 09/26/2024 9:09 AM [facility] LAB BUN 14 5 - 25 mg/dL LAB CHEMISTRY METHOD 09/26/2024 9:09 AM [facility] LAB Creatinine 0.82 0.50 - 1.10 mg/dL LAB CHEMISTRY METHOD 09/26/2024 9:09 AM [facility] LAB eGFR 74 >=60 mL/min/1. 73m2 LAB CHEMISTRY METHOD 09/26/2024 9:09 AM [facility] LAB Comment:Calculation based on the Chronic Kidney Disease Epidemiology Collaboration (CKD-EPI) equation refit without adjustment for race. BUN/Creatinine Ratio 17.1 LAB CHEMISTRY METHOD 09/26/2024 9:09 AM [facility] LAB Calcium 9.3 8.5 - 10.5 mg/dL LAB CHEMISTRY METHOD 09/26/2024 9:09 AM [facility] LAB Blood Venous blood specimen / Unknown Venipuncture / Unknown 09/26/2024 5:47 AM EDT 09/26/2024 7:40 AM EDT us Araceli Maya MD LAB BLOOD ORDERABLES Fin al Result [facility] [address] [place] [address], documented in this encounter Visit Diagnoses Diagnosis Hypokalemia Hypopotassemia documented in this encounter Care Teams Parts Picker Relationship Specialty Start Date End Date Vivian Massey DO [address] [place] [address] PCP - General Internal Medicine 07/21/17 documented as of this encounter
--- OUTSIDE RECORDS SUMMARY | 2024-11-26 16:08 | XMS_ITS | Encounter Summary ---
Author Organization [facility] Address [address] [place] [address] Care Team Providers Care Merchandise Deliverer Name Role Phone Vivian Massey DO Primary Care Provider +1- [phone] Encounter Details Date Type Department Care Team (Late st Contact Info) Description 09/16/2024 Lab Requisition [facility] - Main Lab 299 [facility] [place] [address] Araceli Maya MD [address] [phone] Essential (primary) hypertension; Anemia, unspecified; Unspecified osteoarthritis, [...] mmol/L LAB CHEMISTRY METHOD 09/17/2024 9:46 AM [facility] Potassium 3.2(L) 3.5 - 5.5 mmol/L LAB CHEMISTRY METHOD 09/17/2024 9:46 AM [facility] LAB Chloride 97 96 - 110 mmol/L LAB CHEMISTRY METHOD 09/17/2024 9:46 AM [facility] LAB CO2 34(H) 21 - 32 mmol/L LAB CHEMISTRY METHOD 09/17/2024 9:46 AM [facility] LAB Anion Gap 5 3 - 11 LAB CHEMISTRY METHOD 09/17/2024 9:46 AM [facility] Glucose 83 70 - 100 mg/dL LAB CHEMISTRY METHOD 09/17/2024 9:46 AM [facility] BUN 15 5 - 25 mg/dL LAB CHEMISTRY METHOD 09/17/2024 9:46 AM [facility] Creatinine 0.83 0.50 - 1.10 mg/dL LAB CHEMISTRY METHOD 09/17/2024 9:46 AM [facility] LAB eGFR 73 >=60 mL/min/1. 73m2 LAB CHEMISTRY METHOD 09/17/2024 9:46 AM [facility] Comment:Calculation based on the Chronic Kidney Disease Epidemiology Collaboration (CKD-EPI) equation refit without adjustment for race. BUN/Creatinine Ratio 18.1 LAB CHEMISTRY METHOD 09/17/2024 9:46 AM [facility] Calcium 8.8 8.5 - 10.5 mg/dL LAB CHEMISTRY METHOD 09/17/2024 9:46 AM [facility] Blood Venous blood specimen / Unknown Venipuncture / Unknown 09/17/2024 6:04 AM EDT 09/17/2024 8:25 AM EDT us Araceli Maya MD LAB BLOOD ORDERABLES Fin al Result [facility] [address] [place] [address], * (ABNORMAL) Complete blood count (09/17/2024 6:04 AM EDT) WBC 4.4(L) 4.8 - 10.8 K/mcL LAB HEMETOLOGY METHOD 09/17/2024 9:19 AM EDT [facility] RBC 3.40(L) 3.80 - 4.80 M/mcL LAB HEMETOLOGY METHOD [facility] Hemoglobin 10.7(L) 11.5 - 16.0 g/dL LAB HEMETOLOGY METHOD 09/17/2024 9:19 AM [facility] Hematocrit 33.3(L) 35.0 - 47.0 % LAB HEMETOLOGY METHOD [facility]/17[facility]24 [facility] MCV 97.7 79.0 - 98.0 FL LAB HEMETOLOGY METHOD 09/17[facility]2024 9[facility] MCH 31.4 27.0 - 32.0 pcg LAB HEMETOLOGY METHOD 09/17/2024 9:19 AM EDT [facility] MCHC 32.1 32.0 - 37.0 g/dL LAB HEMETOLOGY METHOD 09/17[facility]2024 [facility] RDW 14.4 11.0 - 15.0 % LAB HEMETOLOGY METHOD 09/17/2024 9[facility] Platelets 225 130 - 400 K/mcL LAB HEMETOLOGY METHOD 09/17/2024 [facility] MPV 9.4 7.0 - 11.0 FL LAB HEMETOLOGY METHOD 09/17/2024 9:19 AM EDT [facility] NRBC 0.0 <1.0 % LAB HEMETOLOGY METHOD 09/17/2024 9:19 AM EDT [facility] NRBC Absolute 0.00 <0.10 K/mcL LAB HEMETOLOGY METHOD 09/17/2024 9:19 AM EDT [facility] Blood Venous blood specimen / Unknown Venipuncture / Unknown 09/17/2024 6:04 AM EDT 09/17/2024 8:25 AM EDT us Araceli Maya MD LAB BLOOD ORDERABLES Fin al Result [facility] [address] [place] [address], documented in this encounter Visit Diagnoses Diagnosis Essential (primary) hypertension Unspecified essential hypertension Anemia, unspecified Unspecified osteoarthritis, unspecified site documented in this encounter Care Teams Merchandise Deliverer Relationship Specialty Start Date End Date Vivian Massey DO [address] [place] [address] PCP - General Internal Medicine 07/21/17 documented as of this encounter
--- OUTSIDE RECORDS SUMMARY | 2024-11-26 16:08 | XMS_ITS | Encounter Summary ---
Author Organization [facility] Address [address] [place] [address] Care Team Providers Care Gauge Maker Name Role Phone Vivian Massey DO Primary Care Provider +1- [phone] Encounter Details Date Type Department Care Team (Late st Contact Info) Description 09/23/2024 Lab Requisition [facility] - Main Lab 299 [facility] [place] [address] Araceli Maya MD [address] [phone] Essential (primary) hypertension; Anemia, unspecified; Unspecified osteoarthritis, [...] mmol/L LAB CHEMISTRY METHOD 09/24/2024 9:37 AM [facility] Potassium 3.3(L) 3.5 - 5.5 mmol/L LAB CHEMISTRY METHOD 09/24/2024 9:37 AM [facility] LAB Chloride 99 96 - 110 mmol/L LAB CHEMISTRY METHOD 09/24/2024 9:37 AM [facility] CO2 31 21 - 32 mmol/L LAB CHEMISTRY METHOD 09/24/2024 9:37 AM [facility] LAB Anion Gap 7 3 - 11 LAB CHEMISTRY METHOD 09/24/2024 9:37 AM [facility] Glucose 80 70 - 100 mg/dL LAB CHEMISTRY METHOD 09/24/2024 9:37 AM [facility] BUN 12 5 - 25 mg/dL LAB CHEMISTRY METHOD 09/24/2024 9:37 AM [facility] Creatinine 0.73 0.50 - 1.10 mg/dL LAB CHEMISTRY METHOD 09/24/2024 9:37 AM [facility] eGFR 85 >=60 mL/min/1. 73m2 LAB CHEMISTRY METHOD 09/24/2024 9:37 AM [facility] Comment:Calculation based on the Chronic Kidney Disease Epidemiology Collaboration (CKD-EPI) equation refit without adjustment for race. BUN/Creatinine Ratio 16.4 LAB CHEMISTRY METHOD 09/24/2024 9:37 AM [facility] Calcium 9.2 8.5 - 10.5 mg/dL LAB CHEMISTRY METHOD 09/24/2024 9:37 AM [facility] Blood Venous blood specimen / Unknown Venipuncture / Unknown 09/24/2024 6:13 AM EDT 09/24/2024 8:25 AM EDT us Whit Laba Elder MD LAB BLOOD ORDERABLES Fin al Result [facility] [address] [place] [address], * (ABNORMAL) Complete blood count (09/24/2024 6:13 AM EDT) WBC 4.4(L) 4.8 - 10.8 K/mcL LAB HEMETOLOGY METHOD 09/24/2024 9:[address] [facility] RBC 3.60(L) 3.80 - 4.80 M/mcL LAB HEMETOLOGY METHOD 09/24[facility]24 [facility] Hemoglobin 11.3(L) 11.5 - 16.0 g/dL LAB HEMETOLOGY METHOD 09/24/2024 9:[address] [facility] Hematocrit 35.0 35.0 - 47.0 % LAB HEMETOLOGY METHOD 09/24/2024 9:[address] [facility] MCV 96.2 79.0 - 98.0 FL LAB HEMETOLOGY METHOD 09/24/2024 9:11 AM [facility] MCH 31.0 27.0 - 32.0 pcg LAB HEMETOLOGY METHOD 09/24/2024 9:[address] [facility] MCHC 32.3 32.0 - 37.0 g/dL LAB HEMETOLOGY METHOD 09/24/2024 9:[address] [facility] RDW 14.4 11.0 - 15.0 % LAB HEMETOLOGY METHOD 09/24/2024 9:[facility] Platelets 262 130 - 400 K/mcL LAB HEMETOLOGY METHOD 09/24/2024 9:11 [facility] MPV 9.3 7.0 - 11.0 FL LAB HEMETOLOGY METHOD 09/24/2024 9:[address] [facility] NRBC 0.0 <1.0 % LAB HEMETOLOGY METHOD 09/24/2024 9:[address] [facility] NRBC Absolute 0.00 <0.10 K/mcL LAB HEMETOLOGY METHOD 09/24/2024 9:[address] [facility] Blood Venous blood specimen / Unknown Venipuncture / Unknown 09/24/2024 6:13 AM EDT 09/24/2024 8:25 AM EDT us Araceli Maya MD LAB BLOOD ORDERABLES Fin al Result [facility] [address] [place] [address], documented in this encounter Visit Diagnoses Diagnosis Essential (primary) hypertension Unspecified essential hypertension Anemia, unspecified Unspecified osteoarthritis, unspecified site documented in this encounter Care Teams Gauge Maker Relationship Specialty Start Date End Date Vivian Massey DO [address] [place] [address] PCP - General Internal Medicine 07/21/17 documented as of this encounter
--- OUTSIDE RECORDS SUMMARY | 2024-11-26 16:08 | XMS_ITS | Encounter Summary ---
Author Organization [facility] Address [address] [place] [address] Care Team Providers Care Meeting Facilitator Name Role Phone Vivian Massey DO Primary Care Provider +1- [phone] Encounter Details Date Type Department Care Team (Late st Contact Info) Description 10/14/2024 Lab Requisition [facility] - Main Lab [address] [facility] [place] [address] Araceli Maya MD [address] [phone] Essential (primary) hypertension; Anemia, unspecified; Unspecified osteoarthritis, [...] Complete blood count (10/15/2024 6:42 AM EDT) [facility] WBC 5.2 4.8 - 10.8 K/mcL LAB HEMETOLOGY METHOD 10/15/2024 9:09 AM [facility] RBC 3.50(L) 3.80 - 4.80 M/mcL LAB HEMETOLOGY METHOD 10/15/2024 9:09 AM [facility] LAB Hemoglobin 11.0(L) 11.5 - 16.0 g/dL LAB HEMETOLOGY METHOD 10/15/2024 9:09 AM [facility] LAB Hematocrit 34.0(L) 35.0 - 47.0 % LAB HEMETOLOGY METHOD 10/15/2024 9:09 AM [facility] LAB MCV 96.0 79.0 - 98.0 FL LAB HEMETOLOGY METHOD 10/15/2024 9:09 AM [facility] LAB MCH 31.1 27.0 - 32.0 pcg LAB HEMETOLOGY METHOD 10/15/2024 9:09 AM [facility] LAB MCHC 32.4 32.0 - 37.0 g/dL LAB HEMETOLOGY METHOD 10/15/2024 9:09 AM [facility] LAB RDW 14.6 11.0 - 15.0 % LAB HEMETOLOGY METHOD 10/15/2024 9:09 AM [facility] Platelets 264 130 - 400 K/mcL LAB HEMETOLOGY METHOD 10/15/2024 9:09 AM [facility] MPV 8.8 7.0 - 11.0 FL LAB HEMETOLOGY METHOD 10/15/2024 9:09 AM [facility] NRBC 0.0 <1.0 % LAB HEMETOLOGY METHOD 10/15/2024 9:09 AM [facility] NRBC Absolute 0.00 <0.10 K/mcL LAB HEMETOLOGY METHOD 10/15/2024 9:09 AM [facility] Blood Venous blood specimen / Unknown Venipuncture / Unknown 10/15/2024 6:42 AM EDT 10/15/2024 8:23 AM EDT us Araceli Maya MD LAB BLOOD ORDERABLES Fin al Result [facility] LAB [address] [place] [address], * (ABNORMAL) Basic metabolic panel (10/15/2024 6:42 AM EDT) Sodium 134 133 - 145 mmol/L LAB CHEMISTRY METHOD 10/15/2024 9:34 AM [facility] Potassium 4.1 3.5 - 5.5 mmol/L LAB CHEMISTRY METHOD 10/15/2024 9:34 AM [facility] Chloride 97 96 - 110 mmol/L LAB CHEMISTRY METHOD 10/15/2024 9:34 AM [facility] LAB CO2 34(H) 21 - 32 mmol/L LAB CHEMISTRY METHOD 10/15/2024 9:34 AM [facility] Anion Gap 3 3 - 11 LAB CHEMISTRY METHOD 10/15/2024 9:34 AM [facility] Glucose 84 70 - 100 mg/dL LAB CHEMISTRY METHOD 10/15/2024 9:34 AM [facility] BUN 15 5 - 25 mg/dL LAB CHEMISTRY METHOD 10/15/2024 9:34 AM [facility] Creatinine 1.01 0.50 - 1.10 mg/dL LAB CHEMISTRY METHOD 10/15/2024 9:34 AM [facility] LAB eGFR 58(L) >=60 mL/min/1. 73m2 LAB CHEMISTRY METHOD 10/15/2024 9:34 AM EDT [facility] LAB Comment:Calculation based on the Chronic Kidney Disease Epidemiology Collaboration (CKD-EPI) equation refit without adjustment for race. BUN/Creatinine Ratio 14.9 LAB CHEMISTRY METHOD 10/15/2024 9:34 AM EDT [facility] LAB Calcium 9.0 8.5 - 10.5 mg/dL LAB CHEMISTRY METHOD 10/15/2024 9:34 AM EDT [facility] LAB Blood Venous blood specimen / Unknown Venipuncture / Unknown 10/15/2024 6:42 AM EDT 10/15/2024 8:23 AM EDT us Araceli Maya MD LAB BLOOD ORDERABLES Fin al Result [facility] LAB [address] [place] [address], documented in this encounter Visit Diagnoses Diagnosis Essential (primary) hypertension Unspecified essential hypertension Anemia, unspecified Unspecified osteoarthritis, unspecified site documented in this encounter Care Teams Meeting Facilitator Relationship Specialty Start Date End Date Vivian Massey DO [address] [place] [address] PCP - General Internal Medicine 07/21/17 documented as of this encounter
--- OUTSIDE RECORDS SUMMARY | 2024-11-26 16:09 | XMS_ITS | Encounter Summary ---
Author Organization [facility] Address [address] [place] [address] Care Team Providers Care Road Mixer Operator Name Role Phone Vivian Massey DO Primary Care Provider +1- [phone] Encounter Details Date Type Department Care Team (Late st Contact Info) Description 10/21/[address] [facility] - Main Lab 299 [facility] [place] [address] Araceli Maya MD [address] [phone] Essential (primary) hypertension; Anemia, unspecified; Unspecified osteoarthritis, [...] Complete blood count (10/22/2024 6:15 AM EDT) [facility] Signature WBC 3.6(L) 4.8 - 10.8 K/mcL LAB HEMETOLOGY METHOD 10/22/2024 9:10 AM [facility] LAB RBC 3.40(L) 3.80 - 4.80 M/mcL LAB HEMETOLOGY METHOD 10/22/2024 9:10 AM [facility] LAB Hemoglobin 10.6(L) 11.5 - 16.0 g/dL LAB HEMETOLOGY METHOD 10/22/2024 9:10 AM [facility] LAB Hematocrit 32.5(L) 35.0 - 47.0 % LAB HEMETOLOGY METHOD 10/22/2024 9:10 AM [facility] LAB MCV 95.0 79.0 - 98.0 FL LAB HEMETOLOGY METHOD 10/22/2024 9:10 AM [facility] LAB MCH 31.0 27.0 - 32.0 pcg LAB HEMETOLOGY METHOD 10/22/2024 9:10 AM [facility] LAB MCHC 32.6 32.0 - 37.0 g/dL LAB HEMETOLOGY METHOD 10/22/2024 9:10 AM [facility] LAB RDW 14.6 11.0 - 15.0 % LAB HEMETOLOGY METHOD 10/22/2024 9:10 AM [facility] LAB Platelets 254 130 - 400 K/mcL LAB HEMETOLOGY METHOD 10/22/2024 9:10 AM [facility] LAB MPV 8.9 7.0 - 11.0 FL LAB HEMETOLOGY METHOD 10/22/2024 9:10 AM [facility] LAB NRBC 0.0 <1.0 % LAB HEMETOLOGY METHOD 10/22/2024 9:10 AM [facility] NRBC Absolute 0.00 <0.10 K/mcL LAB HEMETOLOGY METHOD 10/22/2024 9:10 AM [facility] LAB Blood Venous blood specimen / Unknown Venipuncture / Unknown 10/22/2024 6:15 AM EDT 10/22/2024 8:58 AM EDT us Araceli Maya MD LAB BLOOD ORDERABLES Fin al Result [facility] [address] [place] [address], * (ABNORMAL) Basic metabolic panel (10/22/2024 6:15 AM EDT) Sodium 137 133 - 145 mmol/L LAB CHEMISTRY METHOD 10/22/2024 9:29 AM [facility] Potassium 3.6 3.5 - 5.5 mmol/L LAB CHEMISTRY METHOD 10/22/2024 9:29 AM [facility] LAB Chloride 101 96 - 110 mmol/L LAB CHEMISTRY METHOD 10/22/2024 9:29 AM [facility] CO2 34(H) 21 - 32 mmol/L LAB CHEMISTRY METHOD 10/22/2024 9:29 AM [facility] Anion Gap 2(L) 3 - 11 LAB CHEMISTRY METHOD 10/22/2024 9:29 AM [facility] Glucose 74 70 - 100 mg/dL LAB CHEMISTRY METHOD 10/22/2024 9:29 AM [facility] BUN 14 5 - 25 mg/dL LAB CHEMISTRY METHOD 10/22/2024 9:29 AM [facility] Creatinine 0.89 0.50 - 1.10 mg/dL LAB CHEMISTRY METHOD 10/22/2024 9:29 AM [facility] LAB eGFR 67 >=60 mL/min/1. 73m2 LAB CHEMISTRY METHOD 10/22/2024 9:29 AM EDT [facility] Comment:Calculation based on the Chronic Kidney Disease Epidemiology Collaboration (CKD-EPI) equation refit without adjustment for race. BUN/Creatinine Ratio 15.7 LAB CHEMISTRY METHOD 10/22/2024 9:29 AM EDT [facility] Calcium 8.5 8.5 - 10.5 mg/dL LAB CHEMISTRY METHOD 10/22/2024 9:29 AM EDT [facility] Blood Venous blood specimen / Unknown Venipuncture / Unknown 10/22/2024 6:15 AM EDT 10/22/2024 8:58 AM EDT us Araceli Maya MD LAB BLOOD ORDERABLES Fin al Result [facility] [address] [place] [address], documented in this encounter Visit Diagnoses Diagnosis Essential (primary) hypertension Unspecified essential hypertension Anemia, unspecified Unspecified osteoarthritis, unspecified site documented in this encounter Care Teams Road Mixer Operator Relationship Specialty Start Date End Date Vivian Massey DO [address] [place] [address] PCP - General Internal Medicine 07/21/17 documented as of this encounter
== END 2024-11-26 11:55 | disposition home or self-care (01) ==
LOC: HO.HHCX 11:54
PROVIDERS: PCP Internal Medicine; Referring Provider Physician Assistant; Visit Provider Internal Medicine
DX: I10 Essential (primary) hypertension (principal)
CPT/HCPCS: 36415; 80048

== ENCOUNTER 2024-12-06 08:28 | Outpatient (REF) | payer MEDICARE, MEDICAID, SELFPAY ==
--- NOTE | ~2024-12-06 | XR_ITS ---
EXAMINATION: XR ANKLE, RIGHT CLINICAL INFORMATION: M25.579 - Pain in unspecified ankle and joints of unspecified foot. COMPARISON: 10/11/2024, 09/26/2024, 08/30/2024, 08/02/2024. TECHNIQUE: AP, lateral, and mortise views of the right ankle. FINDINGS: Redemonstration of bimalleolar fractures, with intra-articular involvement. Fractures are essentially healed at this time. No new fracture is evident. There is anatomical alignment. Mortise remains intact. The talar dome is normal. Subtalar joints and calcaneus appear normal. Mild disuse osteopenia. Soft tissues demonstrate new prominent lateral soft tissue swelling, possibly indicating re-injury. XR/XR ankle RT min 3V IMPRESSION: Essentially healed bimalleolar fractures. No definite acute fracture. There is new lateral soft tissue swelling. There is diffuse osteopenia. Electronically signed by: Richard Henson MD 12/06/2024 11:58 AM EDT
--- OUTSIDE RECORDS SUMMARY | 2024-12-07 08:33 | XMS_ITS | Encounter Summary ---
Author Organization [facility] Address [address] [place] [address] Care Team Providers Care Authorization Coordinator Name Role Phone Vivian Massey Primary Care Provider +1- [phone] Encounter Details Date Type Department Care Team ([facility] st Contact Info) Description 09/25/2024 Lab Requisition [facility] - Main Lab [address] [place] [address] Araceli Maya MD [address] [address] Hypokalemia Social History Tobacco Use Types Packs/Day [...] LAB CHEMISTRY METHOD 09/26/2024 9:09 AM EDT [facility] Potassium 3.6 3.5 - 5.5 mmol/L LAB CHEMISTRY METHOD 09/26/2024 9:09 AM [facility] Chloride 100 96 - 110 mmol/L LAB CHEMISTRY METHOD 09/26/2024 9:09 AM [facility] CO2 33(H) 21 - 32 mmol/L LAB CHEMISTRY METHOD 09/26/2024 9:09 AM [facility] Anion Gap 3 3 - 11 LAB CHEMISTRY METHOD 09/26/2024 9:09 AM [facility] Glucose 76 70 - 100 mg/dL LAB CHEMISTRY METHOD 09/26/2024 9:09 AM [facility] BUN 14 5 - 25 mg/dL LAB CHEMISTRY METHOD 09/26/2024 9:09 AM [facility] Creatinine 0.82 0.50 - 1.10 mg/dL LAB CHEMISTRY METHOD 09/26/2024 9:09 AM [facility] LAB eGFR 74 >=60 mL/min/1. 73m2 LAB CHEMISTRY METHOD 09/26/2024 9:09 AM [facility] LAB Comment:Calculation based on the Chronic Kidney Disease Epidemiology Collaboration (CKD-EPI) equation refit without adjustment for race. BUN/Creatinine Ratio 17.1 LAB CHEMISTRY METHOD 09/26/2024 9:09 AM [facility] Calcium 9.3 8.5 - 10.5 mg/dL LAB CHEMISTRY METHOD 09/26/2024 9:09 AM [facility] Blood Venous blood specimen / Unknown Venipuncture / Unknown 09/26/2024 5:47 AM EDT 09/26/2024 7:40 AM EDT us Araceli Maya MD LAB BLOOD ORDERABLES Fin al Result [facility] [address] [place] [address], documented in this encounter Visit Diagnoses Diagnosis Hypokalemia Hypopotassemia documented in this encounter Care Teams Authorization Coordinator Relationship Specialty Start Date End Date Vivian Massey DO [address] [place] [address] PCP - General Internal Medicine 07/21/17 documented as of this encounter
--- OUTSIDE RECORDS SUMMARY | 2024-12-07 08:33 | XMS_ITS | Clinical Summary ---
Author Organization 175 [facility] Address [address] [place] [address] Phone Care Team Providers Care Technician Automated Equipment Name Role Phone Vivian Massey Primary Care Provider +1- [phone] Medications Mounjaro 5 mg/0.5 mL injection INJECT ONE PEN (=5MG) SUBCUTANEOUSLY ONCE A WEEK DIRECTED 2 mL 11/09/19 25 Active tirzepatide (Mounjaro) 5 mg/0.5 mL injection Inject 0.5 mL (5 mg total) under the skin every 7 (seven) days. 2 mL 10/08/19 25 2024 Discontinued Encounters Date Type Department Care Team Description 10/28/2024 Lab Requisition [facility] Lab [address] [place] [phone] Araceli Maya MD Unspecified osteoarthritis, unspecified site; Essential (primary) hypertension; Anemia, unspecified 10/21/2024 Lab Requisition [facility] Lab [address] [place] [phone] Araceli Maya MD Essential (primary) hypertension; Anemia, unspecified; Unspecified osteoarthritis, unspecified site 10/14/2024 Lab Requisition [facility] Lab [address] [place] [phone] Araceli Maya MD Essential (primary) hypertension; Anemia, unspecified; Unspecified osteoarthritis, unspecified site 10/07/2024 Lab Requisition [facility] Lab [address] [place] [phone] Araceli Maya MD Essential (primary) hypertension; Anemia, unspecified; Unspecified osteoarthritis, unspecified site 10/07/2024 Lab Requisition [facility] Lab [address] [place] [address] Araceli Maya MD Urinary tract infection, site not specified 10/02/2024 Lab Requisition [facility] Lab [address] [place] [address] Araceli Maya MD Hypokalemia 09/30/2024 Lab Requisition [facility] Lab [address] [place] [address] Araceli Maya MD Essential (primary) hypertension; Anemia, unspecified; Unspecified osteoarthritis, unspecified site 09/25/2024 Lab Requisition [facility] Lab [address] [place] [phone] Araceli Maya MD Hypokalemia 09/23/2024 Lab Requisition [facility] Lab [address] [place] [address] Araceli Maya MD Essential (primary) hypertension; Anemia, unspecified; Unspecified osteoarthritis, unspecified site 09/18/2024 Lab Requisition [facility] Lab [address] [place] [phone] Araceli Maya MD Hypokalemia 09/16/2024 Lab Requisition [facility] Lab [address] [place] [address] Araceli Maya MD Essential (primary) hypertension; Anemia, unspecified; Unspecified osteoarthritis, unspecified site 09/15/2024 Lab Requisition [facility] Lab [address] [place] [phone] Annalisa Kulkarni PA Altered mental status, unspecified 09/09/2024 Lab Requisition [facility] [address] [facility] [place] [address] Araceli Maya MD Essential (primary) hypertension; Anemia, unspecified; Unspecified osteoarthritis, unspecified site 09/05/2024 Lab Requisition [facility] Lab [address] [place] [address] Araceli Maya MD Hypokalemia from Last 3 Months Immunizations Name Administration Dates Next Due Moderna SARS-CoV-2 COVID-19, mRNA, LNP-S, preservative free 07/13/2020,06/15/2020 Surgical History Surgery Date Site/Laterality Comments BREAST REDUCTION 1997 PROCEDURE: ND BREAST REDUCTION SECTION 1982 PROCEDURE: HISTORICAL BLADDER SUSPENSION PROCEDURE: HISTORICAL BLADDER SUSPENSION; COMMENT: Marcus Corin operation GASTRIC BYPASS 2005 PROCEDURE: ND GASTRIC RSTCV W/BYP W/SM INT RCNSTJ LIMIT [...] K/mcL LAB HEMETOLOGY METHOD 10/22/2024 9:10 AM [facility] LAB RBC 3.40(L) 3.80 - 4.80 M/mcL LAB HEMETOLOGY METHOD 10/22/2024 9:10 AM [facility] LAB Hemoglobin 10.6(L) 11.5 - 16.0 g/dL LAB HEMETOLOGY METHOD 10/22/2024 9:10 AM [facility] LAB Hematocrit 32.5(L) 35.0 - 47.0 % LAB HEMETOLOGY METHOD 10/22/2024 9:10 AM [facility] LAB MCV 95.0 79.0 - 98.0 FL LAB HEMETOLOGY METHOD 10/22/2024 9:10 AM [facility] LAB MCH 31.0 27.0 - 32.0 pcg LAB HEMETOLOGY METHOD 10/22/2024 9:10 AM EDT [facility] LAB MCHC 32.6 32.0 - 37.0 g/dL LAB HEMETOLOGY METHOD 10/22/2024 9:10 AM EDT [facility] LAB RDW 14.6 11.0 - 15.0 % LAB HEMETOLOGY METHOD 10/22/2024 9:10 AM EDT [facility] LAB Platelets 254 130 - 400 K/mcL LAB HEMETOLOGY METHOD 10/22/2024 9:10 AM EDT [facility] LAB MPV 8.9 7.0 - 11.0 FL LAB HEMETOLOGY METHOD 10/22/2024 9:10 AM EDT [facility] LAB NRBC 0.0 <1.0 % LAB HEMETOLOGY METHOD 10/22/2024 9:10 AM EDT [facility] LAB NRBC Absolute 0.00 <0.10 K/mcL LAB HEMETOLOGY METHOD 10/22/2024 9:10 AM EDT [facility] Blood Venous blood specimen / Unknown Venipuncture / Unknown 10/22/2024 6:15 AM EDT 10/22/2024 8:58 AM EDT us Araceli Maya MD LAB BLOOD ORDERABLES Fin al Result [facility] LAB [address] [place] [address], * (ABNORMAL) Basic metabolic panel (10/22/2024 6:15 AM EDT) Only the most recent of11 resultswithin the time period is included. Sodium 137 133 - 145 mmol/L LAB CHEMISTRY METHOD 10/22/2024 9:29 AM EDT [facility] Potassium 3.6 3.5 - 5.5 mmol/L LAB CHEMISTRY METHOD 10/22/2024 9:29 AM [facility] Chloride 101 96 - 110 mmol/L LAB CHEMISTRY METHOD 10/22/2024 9:29 AM [facility] CO2 34(H) 21 - 32 mmol/L LAB CHEMISTRY METHOD 10/22/2024 9:29 AM [facility] Anion Gap 2(L) 3 - 11 LAB CHEMISTRY METHOD 10/22/2024 9:29 AM [facility] Glucose 74 70 - 100 mg/dL LAB CHEMISTRY METHOD 10/22/2024 9:29 AM [facility] BUN 14 5 - 25 mg/dL LAB CHEMISTRY METHOD 10/22/2024 9:29 AM [facility] Creatinine 0.89 0.50 - 1.10 mg/dL LAB CHEMISTRY METHOD 10/22/2024 9:29 AM [facility] LAB eGFR 67 >=60 mL/min/1. 73m2 LAB CHEMISTRY METHOD 10/22/2024 9:29 AM [facility] Comment:Calculation based on the Chronic Kidney Disease Epidemiology Collaboration (CKD-EPI) equation refit without adjustment for race. BUN/Creatinine Ratio 15.7 LAB CHEMISTRY METHOD 10/22/2024 9:29 AM [facility] Calcium 8.5 8.5 - 10.5 mg/dL LAB CHEMISTRY METHOD 10/22/2024 9:29 AM [facility] Blood Venous blood specimen / Unknown Venipuncture / Unknown 10/22/2024 6:15 AM EDT 10/22/2024 8:58 AM EDT us Araceli Maya MD LAB BLOOD ORDERABLES Fin al Result [facility] LAB [address] [place] [address], * (ABNORMAL) Urinalysis with reflex microscopic (10/06/2024 8:10 AM EDT) Only the most recent of2 resultswithin the time period is included. Specific Early Urine 1.022 1.003 - 1.030 LAB URINALYSIS - AUTOMATED METHOD 10/07/2024 12:13 PM [facility] pH, Urine 7.0 5.0 - 8.0 pH LAB URINALYSIS - AUTOMATED METHOD 10/07/2024 12:13 PM [facility] Leukocytes, Urine Large(A) Negative LAB URINALYSIS - AUTOMATED METHOD 10/07/2024 12:13 PM [facility] Nitrite, Urine Positive(A) Negative LAB URINALYSIS - AUTOMATED METHOD 10/07/2024 12:13 PM [facility] Protein, Urine 100(A) <=Trace mg/dL LAB URINALYSIS - AUTOMATED METHOD 10/07/2024 12:13 PM [facility] Glucose, Urine Negative Negative mg/dL LAB URINALYSIS - AUTOMATED METHOD 10/07/2024 12:13 PM [facility] Ketones, Urine Trace(A) Negative mg/dL LAB URINALYSIS - AUTOMATED METHOD 10/07/2024 12:13 PM [facility] Urobilinogen , Urine 1.0 0.2 - 1.0 mg/dL LAB URINALYSIS - AUTOMATED METHOD 10/07/2024 12:13 PM [facility] Bilirubin, Urine Negative Negative LAB URINALYSIS - AUTOMATED METHOD 10/07/2024 12:13 PM [facility] Blood, Urine Large(A) Negative LAB URINALYSIS - AUTOMATED METHOD 10/07/2024 12:13 PM [facility] RBC, Urine 20.0(H) 0 - 4 /HPF LAB URINALYSIS - AUTOMATED METHOD 10/07/2024 12:13 PM [facility] WBC, Urine 212.9(H) 0 - 4 /HPF LAB URINALYSIS - AUTOMATED METHOD 10/07/2024 12:13 PM EDT [facility] Squamous Epithelial, Urine 70(H) 0 - 60 /LPF LAB URINALYSIS - AUTOMATED METHOD 10/07/2024 12:13 PM EDT [facility] Non-Squamous Epithelial, Urine 2-5 TRANSITIONAL EPI /LPF LAB URINALYSIS - AUTOMATED METHOD 10/07/2024 12:13 PM EDT [facility] Crystals, Urine MOD CALCIUM OXALATE /LPF LAB URINALYSIS - AUTOMATED METHOD 10/07/2024 12:13 PM EDT [facility] Bacteria, Urine Moderate(A) Negative /HPF LAB URINALYSIS - AUTOMATED METHOD 10/07/2024 12:13 PM [facility] Hyaline Casts, Urine 1.6 0 - 3 /LPF LAB URINALYSIS - AUTOMATED METHOD 10/07/2024 12:13 PM [facility] Urine Urine specimen obtained by clean catch procedure / Unknown Non-blood Collection / Unknown 10/06/2024 8:10 AM EDT 10/07/2024 11:17 AM EDT Araceli Maya MD LAB URINE ORDERABLES Fin al Result [facility] [address] [place] [address], * (ABNORMAL) Culture urine (10/06/2024 8:10 AM EDT) Only the most recent of2 resultswithin the time period is included. Culture, Urine >=100,000 CFU/mL Escherichia coli(A) RADHAMES 10/10/2024 7:49 AM EDT [facility] Comment: This is an edited result. Previous organism was Gram negative bacilli on 10/08/2024 at 0843 EDT. Culture, Urine 10,000-49,000 CFU/mL Morganella morganii ssp morganii(A) RADHAMES 10/10/2024 7:49 AM EDT [facility] Comment: The organism value [...] - GENER AL ORDERABLES Final Result [facility] [address] [place] [address], [place] [phone] from Last 3 Months Insurance MEDICAID - [place] [employer] MEDICARE Care Teams Technician Automated Equipment Relationship Specialty Start Date End Date Vivian Massey DO [address] [place], [place] PCP - General Internal Medicine 07/21/17
--- OUTSIDE RECORDS SUMMARY | 2024-12-07 08:34 | XMS_ITS | Encounter Summary ---
Author Organization [facility] Address [address] [place] [address] Care Team Providers Care Tax Services Manager Name Role Phone Vivian Massey DO Primary Care Provider +1- [phone] Encounter Details Date Type Department Care Team (Late st Contact Info) Description 09/23/2024 Lab Requisition [facility] Lab [address] [facility] [place] [address] Araceli Maya MD [address] [phone] Essential (primary) hypertension; Anemia, unspecified; Unspecified osteoarthritis, [...] mmol/L LAB CHEMISTRY METHOD 09/24/2024 9:37 AM [facility] Potassium 3.3(L) 3.5 - 5.5 mmol/L LAB CHEMISTRY METHOD 09/24/2024 9:37 AM [facility] Chloride 99 96 - 110 mmol/L LAB CHEMISTRY METHOD 09/24/2024 9:37 AM [facility] CO2 31 21 - 32 mmol/L LAB CHEMISTRY METHOD 09/24/2024 9:37 AM [facility] Anion Gap 7 3 - 11 LAB CHEMISTRY METHOD 09/24/2024 9:37 AM [facility] Glucose 80 70 - 100 mg/dL LAB CHEMISTRY METHOD 09/24/2024 9:37 AM [facility] BUN 12 5 - 25 mg/dL LAB CHEMISTRY METHOD 09/24/2024 9:37 AM [facility] Creatinine 0.73 0.50 - 1.10 mg/dL LAB CHEMISTRY METHOD 09/24/2024 9:37 AM [facility] LAB eGFR 85 >=60 mL/min/1. 73m2 LAB CHEMISTRY METHOD 09/24/2024 9:37 AM [facility] Comment:Calculation based on the Chronic Kidney Disease Epidemiology Collaboration (CKD-EPI) equation refit without adjustment for race. BUN/Creatinine Ratio 16.4 LAB CHEMISTRY METHOD 09/24/2024 9:37 AM [facility] Calcium 9.2 8.5 - 10.5 mg/dL LAB CHEMISTRY METHOD 09/24/2024 9:37 AM [facility] Blood Venous blood specimen / Unknown Venipuncture / Unknown 09/24/2024 6:13 AM EDT 09/24/2024 8:25 AM EDT us Whit Laba Elder MD LAB BLOOD ORDERABLES Fin al Result [facility] [address] [place] [address], * (ABNORMAL) Complete blood count (09/24/2024 6:13 AM EDT) WBC 4.4(L) 4.8 - 10.8 K/mcL LAB HEMETOLOGY METHOD 09/24/2024 9:11 AM EDT [facility] RBC 3.60(L) 3.80 - 4.80 M/mcL LAB HEMETOLOGY METHOD [facility] Hemoglobin 11.3(L) 11.5 - 16.0 g/dL LAB HEMETOLOGY METHOD 09/24/2024 9:11 AM EDT [facility] Hematocrit 35.0 35.0 - 47.0 % LAB HEMETOLOGY METHOD 09/24/2024 9:11 AM EDT [facility] MCV 96.2 79.0 - 98.0 FL LAB HEMETOLOGY METHOD 09/24/2024 9:11 AM [facility] MCH 31.0 27.0 - 32.0 pcg LAB HEMETOLOGY METHOD 09/24/2024 9:11 AM EDT [facility] MCHC 32.3 32.0 - 37.0 g/dL LAB HEMETOLOGY METHOD 09/24/2024 9:11 AM EDT [facility] RDW 14.4 11.0 - 15.0 % LAB HEMETOLOGY METHOD [facility]/24[facility]2024 [facility] Platelets 262 130 - 400 K/mcL LAB HEMETOLOGY METHOD 09/24/2024 9[facility] MPV 9.3 7.0 - 11.0 FL LAB HEMETOLOGY METHOD 09/24/2024 9:11 AM EDT [facility] NRBC 0.0 <1.0 % LAB HEMETOLOGY METHOD 09/24/2024 9:11 AM EDT [facility] NRBC Absolute 0.00 <0.10 K/mcL LAB HEMETOLOGY METHOD 09/24/2024 9:11 AM EDT [facility] Blood Venous blood specimen / Unknown Venipuncture / Unknown 09/24/2024 6:13 AM EDT 09/24/2024 8:25 AM EDT us Araceli Maya MD LAB BLOOD ORDERABLES Fin al Result [facility] [address] [place] [address], documented in this encounter Visit Diagnoses Diagnosis Essential (primary) hypertension Unspecified essential hypertension Anemia, unspecified Unspecified osteoarthritis, unspecified site documented in this encounter Care Teams Tax Services Manager Relationship Specialty Start Date End Date Vivian Massey DO [address] [place] [address] PCP - General Internal Medicine 07/21/17 documented as of this encounter
--- OUTSIDE RECORDS SUMMARY | 2024-12-07 08:34 | XMS_ITS | Encounter Summary ---
Author Organization [employer] Address [address] [facility] [address] [place] [address] Care Team Providers Care Graduate Teaching Associate Name Role Phone Vivian Massey DO Primary Care Provider +1- [phone] Reason for Visit * Reason Onset Date Comments Prior Authorization 06/20/2022 Encounter Details Date Type Department Care Team ([facility] st Contact Info) Description 06/20/2022 Telephone [facility] MEDICINE [address] [place] [address] Vivian Massey DO [address] [place], [place] [phone] Prior Authorization Social History Tobacco Use Types [...] requesting medication tretinoin (Retin-A) 0.025 % cream. Psychodramatist spoke with pharmacy and a PA is needed . documented in this encounter Plan of Treatment Not on file documented as of this encounter Visit Diagnoses Not on filedocumented in this encounter Additional Health Concerns Assessment Noted Time PHQ-9 Depression Total Score: 9 06/17/19 23 4:09 PM EDT documented as of this encounter Care Teams Graduate Teaching Associate Relationship Specialty Start Date End Date Vivian Massey DO [address] [place] [address] PCP - General Family Medicine 07/27/20 documented as of this encounter
--- OUTSIDE RECORDS SUMMARY | 2024-12-07 08:34 | XMS_ITS | Encounter Summary ---
Author Organization [employer] Address [address] [facility] [address] [place] [address] Care Team Providers Care Nutrition Services Worker Name Role Phone Vivian Massey DO Primary Care Provider + [phone] Encounter Details Date Type Department Care Team ([facility] st Contact Info) Description 12/05/2024 Orders Only [facility] [address] [place], [place] [phone] Vivian Massey DO [address] [place], [place] [phone] Social History Tobacco Use Types Packs/Day Years [...] AM EDT documented as of this encounter Progress Notes * Vivian Massey DO - 12/05/2024 4:36 PM EDT Blood pressure meds changed as requested by patient. documented in this encounter Plan of Treatment Not on file documented as of this encounter Visit Diagnoses Not on filedocumented in this encounter Additional Health Concerns Assessment Noted Time PHQ-9 Depression Total Score: 10 024 9:35 AM EDT documented as of this encounter Care Teams Nutrition Services Worker Relationship Specialty Start Date End Date Vivian Massey DO [address] [place] [address] PCP - General Family Medicine 07/27/20 documented as of this encounter
--- OUTSIDE RECORDS SUMMARY | 2024-12-07 08:34 | XMS_ITS | Encounter Summary ---
Author Organization [employer] Address [address] [facility] 7t [place] [address] Care Team Providers Care Office Machine Punch Operator Name Role Phone Vivian Massey DO Primary Care Provider +[phone] Reason for Visit * Reason Onset Date Comments Nurse Triage 08/22/2023 Encounter Details Date Type Department Care Team ([facility] st Contact Info) Description 08/22/2023 Telephone [facility] MEDICINE [address] [place] [address] Vivian Massey DO [address] [place], [place] [phone] Nurse Triage Social History Tobacco Use Types [...] documented as of this encounter Care Teams Office Machine Punch Operator Relationship Specialty Start Date End Date Vivian Massey DO [address] [place] [address] PCP - General Family Medicine 07/27/20 documented as of this encounter
--- OUTSIDE RECORDS SUMMARY | 2024-12-07 08:34 | XMS_ITS | Encounter Summary ---
Author Organization [employer] Address [address] [facility] [address] [place] [address] Care Team Providers Care Coal Passer Name Role Phone Vivian Massey DO Primary Care Provider [phone]- [phone] Encounter Details Date Type Department Care Team (Late st Contact Info) Description 04/20/2022 Abstract [facility] MEDICINE [address] [place], [place] [phone] Vivian Massey DO [address] [place], [place] [phone] Social History Tobacco Use Types Packs/Day Years [...] on filedocumented in this encounter Care Teams Coal Passer Relationship Specialty Start Date End Date Vivian Massey DO [address] [place], [place] [phone] PCP - General Family Medicine 07/27/20 documented as of this encounter
--- OUTSIDE RECORDS SUMMARY | 2024-12-07 08:35 | XMS_ITS | Encounter Summary ---
Author Organization [employer] Address [address] [facility] [address] [place] [address] Care Team Providers Care Allied Health Teacher Name Role Phone Shilpa Vivian GARCIA Primary Care Provider + [phone] Reason for Visit * Reason Onset Date Comments DME 11/27/2024 Durable Medical Equipment 11/27/2024 [facility]MS DM E Order: Incontinence Supplies Encounter Details Date Type Department Care Team ([facility] st Contact Info) Description 11/27/2024 Telephone [facility] MEDICINE [address] [place] [address] Clara Iverson MD [address] [place] [address] DME ; Durable Medical Equipment ([facility] DME Order: Incontinence Supplies) Social History Tobacco Use Types Packs/Day Years [...] * Telephone Encounter - Eloina Raymond - 12/06/2024 2:12 PM EDT Previous DME order was updated and faxed with supporting documentation. Confirmation was up loaded to Media. * Telephone Encounter - Daniel Pierce - 12/05/2024 10:22 AM EDT Tc maya Cardoza with [employer] requesting for the DME script to be sent again but this time with a second diagnosis and what is causing it. Contact at [phone] * Telephone Encounter - Tawanda Raymond - 11/27/2024 9:27 AM EDT Tc from [place]ling with [employer] calling in regards to message prior stating she has received incontinence diagnoses but needs additional notes as to what's causing it. Please contact Darling at [phone]. * Telephone Encounter - Leigh Nael [place] - 11/27/2024 8:37 AM EDT Incontinence product form for Disposable underpads/bedpads signed and faxed to [employer] . Fax confirmation received and sent to scan. If patient calls to check status on above, please advise them to contact [employer] at [phone]. documented in this encounter Plan of Treatment Not on file documented as of this encounter Visit Diagnoses Not on filedocumented in this encounter Additional Health Concerns Assessment Noted Time PHQ-9 Depression Total Score: 10 024 9:35 AM EDT documented as of this encounter Care Teams Allied Health Teacher Relationship Specialty Start Date End Date Vivian Massey DO [address] [place] [phone] PCP - General Family Medicine 07/27/20 documented as of this encounter
--- OUTSIDE RECORDS SUMMARY | 2024-12-07 08:35 | XMS_ITS | Encounter Summary ---
Author Organization [facility] Address [address] [place] [address] Care Team Providers Care Cooky Packer Name Role Phone Vivian Massey Primary Care Provider [phone]- [phone] Encounter Details Date Type Department Care Team ([facility] st Contact Info) Description 09/18/2024 Lab Requisition [facility] Lab [address] [place] [address] Araceli Maya MD [address] [address] Hypokalemia Social History Tobacco Use Types Packs/Day [...] LAB CHEMISTRY METHOD 09/18/2024 8:19 AM EDT [facility] Potassium 3.6 3.5 - 5.5 mmol/L LAB CHEMISTRY METHOD 09/18/2024 8:19 AM [facility] LAB Chloride 97 96 - 110 mmol/L LAB CHEMISTRY METHOD 09/18/2024 8:19 AM [facility] LAB CO2 31 21 - 32 mmol/L LAB CHEMISTRY METHOD 09/18/2024 8:19 AM [facility] LAB Anion Gap 6 3 - 11 LAB CHEMISTRY METHOD 09/18/2024 8:19 AM [facility] LAB Glucose 82 70 - 100 mg/dL LAB CHEMISTRY METHOD 09/18/2024 8:19 AM [facility] LAB BUN 11 5 - 25 mg/dL LAB CHEMISTRY METHOD 09/18/2024 8:19 AM [facility] LAB Creatinine 0.69 0.50 - 1.10 mg/dL LAB CHEMISTRY METHOD 09/18/2024 8:19 AM [facility] LAB eGFR 90 >=60 mL/min/1. 73m2 LAB CHEMISTRY METHOD 09/18/2024 8:19 AM [facility] LAB Comment:Calculation based on the Chronic Kidney Disease Epidemiology Collaboration (CKD-EPI) equation refit without adjustment for race. BUN/Creatinine Ratio 15.9 LAB CHEMISTRY METHOD 09/18/2024 8:19 AM [facility] LAB Calcium 9.0 8.5 - 10.5 mg/dL LAB CHEMISTRY METHOD 09/18/2024 8:19 AM [facility] LAB Blood Venous blood specimen / Unknown Venipuncture / Unknown 09/18/2024 5:51 AM EDT 09/18/2024 6:44 AM EDT us Araceli Maya MD LAB BLOOD ORDERABLES Fin al Result [facility] [address] [place] [address], documented in this encounter Visit Diagnoses Diagnosis Hypokalemia Hypopotassemia documented in this encounter Care Teams Cooky Packer Relationship Specialty Start Date End Date Vivian Massey DO [address] [place], [place] PCP - General Internal Medicine 07/21/17 documented as of this encounter
--- OUTSIDE RECORDS SUMMARY | 2024-12-07 08:35 | XMS_ITS | Clinical Summary ---
Author Organization [facility] Address [address] [place] [address] Care Team Providers Care Com Writer Name Role Phone Vidal Pinzon MD Primary Care Provider [phone] Medications Medication Sig Dispensed Refills Start Date [...] age to complete this topic Care Teams Com Writer Relationship Specialty Start Date End Date Vidal Pinzon MD [address] [place] [address] PCP - General Family Medicine 02/18/20
--- OUTSIDE RECORDS SUMMARY | 2024-12-07 08:35 | XMS_ITS | Encounter Summary ---
Author Organization [facility] Address [address] [place] [address] Care Team Providers Care Java J2Ee Application Developer Name Role Phone Vivian Massey DO Primary Care Provider +1- [phone] Encounter Details Date Type Department Care Team (Late st Contact Info) Description 09/16/2024 Lab Requisition [facility] - Main Lab 299 [facility] [place] [address] Araceli Maya MD [address] [phone] Essential (primary) hypertension; Anemia, unspecified; Unspecified osteoarthritis, [...] mmol/L LAB CHEMISTRY METHOD 09/17/2024 9:[address] [facility] Potassium 3.2(L) 3.5 - 5.5 mmol/L LAB CHEMISTRY METHOD 09/17/2024 9:[address] [facility] Chloride 97 96 - 110 mmol/L LAB CHEMISTRY METHOD 09/17/2024 9:[address] [facility] CO2 34(H) 21 - 32 mmol/L LAB CHEMISTRY METHOD 09/17/2024 9:[address] [facility] Anion Gap 5 3 - 11 LAB CHEMISTRY METHOD 09/17/2024 9:[address] [facility] Glucose 83 70 - 100 mg/dL LAB CHEMISTRY METHOD 09/17/2024 9:[address] [facility] BUN 15 5 - 25 mg/dL LAB CHEMISTRY METHOD 09/17/2024 9:[address] [facility] Creatinine 0.83 0.50 - 1.10 mg/dL LAB CHEMISTRY METHOD 09/17/2024 9:[address] [facility] eGFR 73 >=60 mL/min/1. 73m2 LAB CHEMISTRY METHOD 09/17/2024 9:[address] [facility] Comment:Calculation based on the Chronic Kidney Disease Epidemiology Collaboration (CKD-EPI) equation refit without adjustment for race. BUN/Creatinine Ratio 18.1 LAB CHEMISTRY METHOD 09/17/2024 9:[address] [facility] Calcium 8.8 8.5 - 10.5 mg/dL LAB CHEMISTRY METHOD 09/17/2024 9:[address] [facility] Blood Venous blood specimen / Unknown Venipuncture / Unknown 09/17/2024 6:04 AM EDT 09/17/2024 8:25 AM EDT us Araceli Maya MD LAB BLOOD ORDERABLES Fin al Result [facility] [address] [place] [address], * (ABNORMAL) Complete blood count (09/17/2024 6:04 AM EDT) WBC 4.4(L) 4.8 - 10.8 K/mcL LAB HEMETOLOGY METHOD 09/17/2024 9:19 AM EDT [facility] RBC 3.40(L) 3.80 - 4.80 M/mcL LAB HEMETOLOGY [facility] Hemoglobin 10.7(L) 11.5 - 16.0 g/dL LAB HEMETOLOGY METHOD 09/17/2024 9:[address] [facility] Hematocrit 33.3(L) 35.0 - 47.0 % LAB HEMETOLOGY METHOD 09/17[facility]24 [facility] MCV 97.7 79.0 - 98.0 FL LAB HEMETOLOGY METHOD 09/17/2024 9[facility] MCH 31.4 27.0 - 32.0 pcg LAB HEMETOLOGY METHOD 09/17/2024 9:19 AM EDT [facility] MCHC 32.1 32.0 - 37.0 g/dL LAB HEMETOLOGY METHOD 09/17[facility]24 [facility] RDW 14.4 11.0 - 15.0 % LAB HEMETOLOGY METHOD 09/17/2024 9[facility] Platelets 225 130 - 400 K/mcL LAB HEMETOLOGY METHOD 09/17/2024 9[facility] MPV 9.4 7.0 - 11.0 FL LAB HEMETOLOGY METHOD 09/17/2024 9:19 AM EDT [facility] NRBC 0.0 <1.0 % LAB HEMETOLOGY METHOD 09/17/2024 9:19 AM EDT [facility] NRBC Absolute 0.00 <0.10 K/mcL LAB HEMETOLOGY METHOD 09/17/2024 9:19 AM EDT [facility] Blood Venous blood specimen / Unknown Venipuncture / Unknown 09/17/2024 6:04 AM EDT 09/17/2024 8:25 AM EDT us Araceli Maya MD LAB BLOOD ORDERABLES Fin al Result [facility] [address] [place] [address], documented in this encounter Visit Diagnoses Diagnosis Essential (primary) hypertension Unspecified essential hypertension Anemia, unspecified Unspecified osteoarthritis, unspecified site documented in this encounter Care Teams Java J2Ee Application Developer Relationship Specialty Start Date End Date Vivian Massey DO [address] [place] [address] PCP - General Internal Medicine 07/21/17 documented as of this encounter
--- OUTSIDE RECORDS SUMMARY | 2024-12-07 08:36 | XMS_ITS | Encounter Summary ---
Author Organization [facility] Address [address] [place] [address] Care Team Providers Care Pneumatic Deicer Inspector Name Role Phone Vivian Massey Primary Care Provider +1- [phone] Encounter Details Date Type Department Care Team ([facility] st Contact Info) Description 10/02/2024 Lab Requisition [facility] - Main Lab [address] [place] [address] Araceli Maya MD [address] [address] Hypokalemia Social History Tobacco Use Types Packs/Day [...] LAB CHEMISTRY METHOD 10/03/2024 8:28 AM EDT [facility] Potassium 3.8 3.5 - 5.5 mmol/L LAB CHEMISTRY METHOD 10/03/2024 8:28 AM [facility] Chloride 101 96 - 110 mmol/L LAB CHEMISTRY METHOD 10/03/2024 8:28 AM [facility] CO2 34(H) 21 - 32 mmol/L LAB CHEMISTRY METHOD 10/03/2024 8:28 AM [facility] Anion Gap 3 3 - 11 LAB CHEMISTRY METHOD 10/03/2024 8:28 AM [facility] Glucose 79 70 - 100 mg/dL LAB CHEMISTRY METHOD 10/03/2024 8:28 AM [facility] BUN 15 5 - 25 mg/dL LAB CHEMISTRY METHOD 10/03/2024 8:28 AM [facility] Creatinine 0.88 0.50 - 1.10 mg/dL LAB CHEMISTRY METHOD 10/03/2024 8:28 AM [facility] eGFR 68 >=60 mL/min/1. 73m2 LAB CHEMISTRY METHOD 10/03/2024 8:28 AM [facility] Comment:Calculation based on the Chronic Kidney Disease Epidemiology Collaboration (CKD-EPI) equation refit without adjustment for race. BUN/Creatinine Ratio 17.0 LAB CHEMISTRY METHOD 10/03/2024 8:28 AM [facility] Calcium 9.1 8.5 - 10.5 mg/dL LAB CHEMISTRY METHOD 10/03/2024 8:28 AM [facility] Blood Venous blood specimen / Unknown Venipuncture / Unknown 10/03/2024 5:51 AM EDT 10/03/2024 7:39 AM EDT us Araceli Maya MD LAB BLOOD ORDERABLES Fin al Result [facility] [address] [place] [address], documented in this encounter Visit Diagnoses Diagnosis Hypokalemia Hypopotassemia documented in this encounter Care Teams Pneumatic Deicer Inspector Relationship Specialty Start Date End Date Vivian Massey DO [address] [place] [address] PCP - General Internal Medicine 07/21/17 documented as of this encounter
--- OUTSIDE RECORDS SUMMARY | 2024-12-07 08:36 | XMS_ITS | Encounter Summary ---
Author Organization [facility] Address [address] [place] [address] Care Team Providers Care Engineering Technical Analyst Name Role Phone Vivian Massey DO Primary Care Provider +1- [phone] Encounter Details Date Type Department Care Team (Late st Contact Info) Description 10/07/[address] [facility] - Main Lab 299 [facility] [place] [address] Araceli Maya MD [address] [phone] Essential (primary) hypertension; Anemia, unspecified; Unspecified osteoarthritis, [...] Complete blood count (10/08/2024 5:15 AM EDT) [facility] WBC 5.4 4.8 - 10.8 K/mcL LAB HEMETOLOGY METHOD 10/08/2024 8:04 AM [facility] RBC 3.30(L) 3.80 - 4.80 M/mcL LAB HEMETOLOGY METHOD 10/08/2024 8:04 AM [facility] Hemoglobin 10.2(L) 11.5 - 16.0 g/dL LAB HEMETOLOGY METHOD 10/08/2024 8:04 AM [facility] Hematocrit 30.8(L) 35.0 - 47.0 % LAB HEMETOLOGY METHOD 10/08/2024 8:04 AM [facility] MCV 94.5 79.0 - 98.0 FL LAB HEMETOLOGY METHOD 10/08/2024 8:04 AM [facility] MCH 31.3 27.0 - 32.0 pcg LAB HEMETOLOGY METHOD 10/08/2024 8:04 AM [facility] MCHC 33.1 32.0 - 37.0 g/dL LAB HEMETOLOGY METHOD 10/08/2024 8:04 AM [facility] RDW 14.5 11.0 - 15.0 % LAB HEMETOLOGY METHOD 10/08/2024 8:04 AM [facility] Platelets 222 130 - 400 K/mcL LAB HEMETOLOGY METHOD 10/08/2024 8:04 AM [facility] MPV 9.2 7.0 - 11.0 FL LAB HEMETOLOGY METHOD 10/08/2024 8:04 AM [facility] NRBC 0.0 <1.0 % LAB HEMETOLOGY METHOD 10/08/2024 8:04 AM [facility] NRBC Absolute 0.00 <0.10 K/mcL LAB HEMETOLOGY METHOD 10/08/2024 8:04 AM [facility] Blood Venous blood specimen / Unknown Venipuncture / Unknown 10/08/2024 5:15 AM EDT 10/08/2024 7:47 AM EDT us Araceli Maya MD LAB BLOOD ORDERABLES Fin al Result [facility] [address] [place] [address], * (ABNORMAL) Basic metabolic panel (10/08/2024 5:15 AM EDT) Sodium 131(L) 133 - 145 mmol/L LAB CHEMISTRY METHOD 10/08/2024 9:09 AM [facility] Potassium 3.6 3.5 - 5.5 mmol/L LAB CHEMISTRY METHOD 10/08/2024 9:09 AM [facility] Chloride 93(L) 96 - 110 mmol/L LAB CHEMISTRY METHOD 10/08/2024 9:09 AM [facility] CO2 33(H) 21 - 32 mmol/L LAB CHEMISTRY METHOD 10/08/2024 9:09 AM [facility] Anion Gap 5 3 - 11 LAB CHEMISTRY METHOD 10/08/2024 9:09 AM [facility] Glucose 79 70 - 100 mg/dL LAB CHEMISTRY METHOD 10/08/2024 9:09 AM [facility] BUN 14 5 - 25 mg/dL LAB CHEMISTRY METHOD 10/08/2024 9:09 AM [facility] Creatinine 0.83 0.50 - 1.10 mg/dL LAB CHEMISTRY METHOD 10/08/2024 9:09 AM [facility] eGFR 73 >=60 mL/min/1. 73m2 LAB CHEMISTRY METHOD 10/08/2024 9:09 AM EDT [facility] Comment:Calculation based on the Chronic Kidney Disease Epidemiology Collaboration (CKD-EPI) equation refit without adjustment for race. BUN/Creatinine Ratio 16.9 LAB CHEMISTRY METHOD 10/08/2024 9:09 AM EDT [facility] Calcium 8.7 8.5 - 10.5 mg/dL LAB CHEMISTRY METHOD 10/08/2024 9:09 AM EDT [facility] Blood Venous blood specimen / Unknown Venipuncture / Unknown 10/08/2024 5:15 AM EDT 10/08/2024 7:47 AM EDT us Araceli Maya MD LAB BLOOD ORDERABLES Fin al Result [facility] [address] [place] [address], documented in this encounter Visit Diagnoses Diagnosis Essential (primary) hypertension Unspecified essential hypertension Anemia, unspecified Unspecified osteoarthritis, unspecified site documented in this encounter Care Teams Engineering Technical Analyst Relationship Specialty Start Date End Date Vivian Massey DO [address] [place] [address] PCP - General Internal Medicine 07/21/17 documented as of this encounter
--- OUTSIDE RECORDS SUMMARY | 2024-12-07 08:36 | XMS_ITS | Encounter Summary ---
Author Organization [facility] Address [address] [place] [address] Care Team Providers Care Drier Belt Conveyor Name Role Phone Vivian Massey DO Primary Care Provider +1- [phone] Encounter Details Date Type Department Care Team (Late st Contact Info) Description 08/03/2024 Lab Requisition [facility] - Main Lab 299 [facility] [place] [address] Araceli Maya MD [address] [phone] Essential (primary) hypertension; Anemia, unspecified; Unspecified osteoarthritis, [...] mmol/L LAB CHEMISTRY METHOD 08/06/2024 10:58 AM [facility] Potassium 3.6 3.5 - 5.5 mmol/L LAB CHEMISTRY METHOD 08/06/2024 10:58 AM [facility] Chloride 95(L) 96 - 110 mmol/L LAB CHEMISTRY METHOD 08/06/2024 10:58 AM [facility] CO2 31 21 - 32 mmol/L LAB CHEMISTRY METHOD 08/06/2024 10:58 AM [facility] Anion Gap 5 3 - 11 LAB CHEMISTRY METHOD 08/06/2024 10:58 AM [facility] Glucose 75 70 - 100 mg/dL LAB CHEMISTRY METHOD 08/06/2024 10:58 AM [facility] BUN 11 5 - 25 mg/dL LAB CHEMISTRY METHOD 08/06/2024 10:58 AM [facility] Creatinine 0.76 0.50 - 1.10 mg/dL LAB CHEMISTRY METHOD 08/06/2024 10:58 AM [facility] eGFR 81 >=60 mL/min/1. 73m2 LAB CHEMISTRY METHOD 08/06/2024 10:58 AM [facility] Comment:Calculation based on the Chronic Kidney Disease Epidemiology Collaboration (CKD-EPI) equation refit without adjustment for race. BUN/Creatinine Ratio 14.5 LAB CHEMISTRY METHOD 08/06/2024 10:58 AM [facility] Calcium 8.6 8.5 - 10.5 mg/dL LAB CHEMISTRY METHOD 08/06/2024 10:58 AM [facility] Blood Venous blood specimen / Unknown Venipuncture / Unknown 08/06/2024 6:57 AM EDT 08/06/2024 10:58 AM EDT us Araceli Maya MD LAB BLOOD ORDERABLES Fin al Result [facility] [address] [place] [address], * (ABNORMAL) Complete blood count (08/06/2024 6:57 AM EDT) WBC 3.3(L) 4.8 - 10.8 K/mcL LAB HEMETOLOGY METHOD 08/06/2024 11:00 AM EDT [facility] RBC 3.70(L) 3.80 - 4.80 M/mcL LAB HEMETOLOGY METHOD 08/06/2024 11:00 AM [facility] Hemoglobin 11.4(L) 11.5 - 16.0 g/dL LAB HEMETOLOGY METHOD 08/06/2024 11:00 AM [facility] Hematocrit 34.9(L) 35.0 - 47.0 % LAB HEMETOLOGY METHOD 08/06/2024 11:00 AM [facility] MCV 95.6 79.0 - 98.0 FL LAB HEMETOLOGY METHOD 08/[facility]24 [facility] MCH 31.2 27.0 - 32.0 pcg LAB HEMETOLOGY METHOD 08/06/2024 11[facility] MCHC 32.7 32.0 - 37.0 g/dL LAB HEMETOLOGY METHOD 08/06/2024 11:00 AM [facility] RDW 13.6 11.0 - 15.0 % LAB HEMETOLOGY METHOD 08/06/2024 11:00 AM [facility] Platelets 262 130 - 400 K/mcL LAB HEMETOLOGY METHOD 08/06/2024 11:00 AM [facility] MPV 9.1 7.0 - 11.0 FL LAB HEMETOLOGY METHOD 08/06/2024 11:00 AM EDT [facility] NRBC 0.0 <1.0 % LAB HEMETOLOGY METHOD 08/06/2024 11:00 AM EDT [facility] NRBC Absolute 0.00 <0.10 K/mcL LAB HEMETOLOGY METHOD 08/06/2024 11:00 AM EDT [facility] Blood Venous blood specimen / Unknown Venipuncture / Unknown 08/06/2024 6:57 AM EDT 08/06/2024 10:59 AM EDT us Araceli Maya MD LAB BLOOD ORDERABLES Fin al Result [facility] [address] [place] [address], documented in this encounter Visit Diagnoses Diagnosis Essential (primary) hypertension Unspecified essential hypertension Anemia, unspecified Unspecified osteoarthritis, unspecified site documented in this encounter Care Teams Drier Belt Conveyor Relationship Specialty Start Date End Date Vivian Massey DO [address] [place] [address] PCP - General Internal Medicine 07/21/17 documented as of this encounter
--- OUTSIDE RECORDS SUMMARY | 2024-12-07 08:36 | XMS_ITS | Encounter Summary ---
Author Organization [facility] Address [address] [place] [address] Care Team Providers Care Cooperative Manager Name Role Phone Vivian Massey DO Primary Care Provider +1- [phone] Encounter Details Date Type Department Care Team (Late st Contact Info) Description 09/30/2024 Lab Requisition [facility] - Main Lab 299 [facility] [place] [address] Araceli Maya MD [address] [phone] Essential (primary) hypertension; Anemia, unspecified; Unspecified osteoarthritis, [...] Complete blood count (10/01/2024 5:36 AM EDT) [facility] WBC 4.2(L) 4.8 - 10.8 K/mcL LAB HEMETOLOGY METHOD 10/01/2024 7:[address] [facility] RBC 3.40(L) 3.80 - 4.80 M/mcL LAB HEMETOLOGY METHOD 10/01/2024 7:[address] [facility] Hemoglobin 10.8(L) 11.5 - 16.0 g/dL LAB HEMETOLOGY METHOD 10/01/2024 7:[address] [facility] Hematocrit 33.5(L) 35.0 - 47.0 % LAB HEMETOLOGY METHOD 10/01/2024 7:[address] [facility] MCV 97.7 79.0 - 98.0 FL LAB HEMETOLOGY METHOD 10/01/2024 7:[address] [facility] MCH 31.5 27.0 - 32.0 pcg LAB HEMETOLOGY METHOD 10/01/2024 7:[address] [facility] MCHC 32.2 32.0 - 37.0 g/dL LAB HEMETOLOGY METHOD 10/01/2024 7:[address] [facility] RDW 14.5 11.0 - 15.0 % LAB HEMETOLOGY METHOD 10/01/2024 7:[address] [facility] Platelets 243 130 - 400 K/mcL LAB HEMETOLOGY METHOD 10/01/2024 7:[address] [facility] MPV 9.4 7.0 - 11.0 FL LAB HEMETOLOGY METHOD 10/01/2024 7:[address] [facility] NRBC 0.0 <1.0 % LAB HEMETOLOGY METHOD 10/01/2024 7:[address] [facility] NRBC Absolute 0.00 <0.10 K/mcL LAB HEMETOLOGY METHOD 10/01/2024 7:[address] [facility] Blood Venous blood specimen / Unknown Venipuncture / Unknown 10/01/2024 5:36 AM EDT 10/01/2024 6:57 AM EDT us Araceli Maya MD LAB BLOOD ORDERABLES Fin al Result [facility] [address] [place] [address], [place] [phone] * (ABNORMAL) Basic metabolic panel (10/01/2024 5:36 AM EDT) Sodium 138 133 - 145 mmol/L LAB CHEMISTRY METHOD 10/01/2024 8:[address] [facility] Potassium 3.3(L) 3.5 - 5.5 mmol/L LAB CHEMISTRY METHOD 10/01/2024 8:[address] [facility] Chloride 100 96 - 110 mmol/L LAB CHEMISTRY METHOD 10/01/2024 8:[address] [facility] CO2 32 21 - 32 mmol/L LAB CHEMISTRY METHOD 10/01/2024 8:[address] [facility] Anion Gap 6 3 - 11 LAB CHEMISTRY METHOD 10/01/2024 8:[address] [facility] Glucose 82 70 - 100 mg/dL LAB CHEMISTRY METHOD 10/01/2024 8:[address] [facility] BUN 14 5 - 25 mg/dL LAB CHEMISTRY METHOD 10/01/2024 8:[address] [facility] Creatinine 0.81 0.50 - 1.10 mg/dL LAB CHEMISTRY METHOD 10/01/2024 8:[address] [facility] eGFR 75 >=60 mL/min/1. 73m2 LAB CHEMISTRY METHOD 10/01/2024 8:[address] [facility] Comment:Calculation based on the Chronic Kidney Disease Epidemiology Collaboration (CKD-EPI) equation refit without adjustment for race. BUN/Creatinine Ratio 17.3 LAB CHEMISTRY METHOD 10/01/2024 8:[address] [facility] Calcium 8.8 8.5 - 10.5 mg/dL LAB CHEMISTRY METHOD 10/01/2024 8:[address] [facility] Blood Venous blood specimen / Unknown Venipuncture / Unknown 10/01/2024 5:36 AM EDT 10/01/2024 6:57 AM EDT us Araceli Maya MD LAB BLOOD ORDERABLES Fin al Result [facility] [address] [place] [address], documented in this encounter Visit Diagnoses Diagnosis Essential (primary) hypertension Unspecified essential hypertension Anemia, unspecified Unspecified osteoarthritis, unspecified site documented in this encounter Care Teams Cooperative Manager Relationship Specialty Start Date End Date Vivian Massey DO [address] [place] [address] PCP - General Internal Medicine 07/21/17 documented as of this encounter
--- OUTSIDE RECORDS SUMMARY | 2024-12-07 08:36 | XMS_ITS | Encounter Summary ---
Author Organization [employer] Address [address] [facility] [address] [place] [address] Care Team Providers Care Gas Check Pad Maker Name Role Phone Vivian Massey DO Primary Care Provider +1 [phone] Encounter Details Date Type Department Care Team ([facility] st Contact Info) Description 08/15/2023 Orders Only [facility] MEDICINE [address] [place] [address] Vivian Massey DO [address] [place], [place] [phone] Social History Tobacco Use Types Packs/Day Years [...] documented as of this encounter Care Teams Gas Check Pad Maker Relationship Specialty Start Date End Date Vivian Massey DO [address] [place] [address] PCP - General Family Medicine 07/27/20 documented as of this encounter
--- OUTSIDE RECORDS SUMMARY | 2024-12-07 08:36 | XMS_ITS | Encounter Summary ---
Author Organization [facility] Address [address] [place] [address] Care Team Providers Care Credit Verification Clerk Name Role Phone Vivian Massey DO Primary Care Provider +1- [phone] Encounter Details Date Type Department Care Team (Late st Contact Info) Description 10/14/2024 Lab Requisition [facility] - Main Lab 299 [facility] [place] [address] Araceli Maya MD [address] [phone] Essential (primary) hypertension; Anemia, unspecified; Unspecified osteoarthritis, [...] Complete blood count (10/15/2024 6:42 AM EDT) [facility] WBC 5.2 4.8 - 10.8 K/mcL LAB HEMETOLOGY METHOD 10/15/2024 9:09 AM [facility] RBC 3.50(L) 3.80 - 4.80 M/mcL LAB HEMETOLOGY METHOD 10/15/2024 9:09 AM [facility] Hemoglobin 11.0(L) 11.5 - 16.0 g/dL LAB HEMETOLOGY METHOD 10/15/2024 9:09 AM [facility] Hematocrit 34.0(L) 35.0 - 47.0 % LAB HEMETOLOGY METHOD 10/15/2024 9:09 AM [facility] MCV 96.0 79.0 - 98.0 FL LAB HEMETOLOGY METHOD 10/15/2024 9:09 AM [facility] MCH 31.1 27.0 - 32.0 pcg LAB HEMETOLOGY METHOD 10/15/2024 9:09 AM [facility] MCHC 32.4 32.0 - 37.0 g/dL LAB HEMETOLOGY METHOD 10/15/2024 9:09 AM [facility] RDW 14.6 11.0 - 15.0 % LAB HEMETOLOGY METHOD 10/15/2024 9:09 AM [facility] Platelets 264 130 - 400 K/mcL LAB HEMETOLOGY METHOD 10/15/2024 9:09 AM [facility] MPV 8.8 7.0 - 11.0 FL LAB HEMETOLOGY METHOD 10/15/2024 9:09 AM [facility] NRBC 0.0 <1.0 % LAB HEMETOLOGY METHOD 10/15/2024 9:09 AM [facility] NRBC Absolute 0.00 <0.10 K/mcL LAB HEMETOLOGY METHOD 10/15/2024 9:09 AM [facility] Blood Venous blood specimen / Unknown Venipuncture / Unknown 10/15/2024 6:42 AM EDT 10/15/2024 8:23 AM EDT us Araceli Maya MD LAB BLOOD ORDERABLES Fin al Result [facility] [address] [place] [address], * (ABNORMAL) Basic metabolic panel (10/15/2024 6:42 AM EDT) Sodium 134 133 - 145 mmol/L LAB CHEMISTRY METHOD 10/15/2024 9:34 AM [facility] Potassium 4.1 3.5 - 5.5 mmol/L LAB CHEMISTRY METHOD 10/15/2024 9:34 AM [facility] Chloride 97 96 - 110 mmol/L LAB CHEMISTRY METHOD 10/15/2024 9:34 AM [facility] CO2 34(H) 21 - 32 mmol/L LAB CHEMISTRY METHOD 10/15/2024 9:34 AM [facility] Anion Gap 3 3 - 11 LAB CHEMISTRY METHOD 10/15/2024 9:34 AM [facility] Glucose 84 70 - 100 mg/dL LAB CHEMISTRY METHOD 10/15/2024 9:34 AM [facility] BUN 15 5 - 25 mg/dL LAB CHEMISTRY METHOD 10/15/2024 9:34 AM [facility] Creatinine 1.01 0.50 - 1.10 mg/dL LAB CHEMISTRY METHOD 10/15/2024 9:34 AM [facility] eGFR 58(L) >=60 mL/min/1. 73m2 LAB CHEMISTRY METHOD 10/15/2024 9:34 AM EDT [facility] Comment:Calculation based on the Chronic Kidney Disease Epidemiology Collaboration (CKD-EPI) equation refit without adjustment for race. BUN/Creatinine Ratio 14.9 LAB CHEMISTRY METHOD 10/15/2024 9:34 AM EDT [facility] Calcium 9.0 8.5 - 10.5 mg/dL LAB CHEMISTRY METHOD 10/15/2024 9:34 AM EDT [facility] Blood Venous blood specimen / Unknown Venipuncture / Unknown 10/15/2024 6:42 AM EDT 10/15/2024 8:23 AM EDT us Araceli Maya MD LAB BLOOD ORDERABLES Fin al Result [facility] [address] [place] [address], documented in this encounter Visit Diagnoses Diagnosis Essential (primary) hypertension Unspecified essential hypertension Anemia, unspecified Unspecified osteoarthritis, unspecified site documented in this encounter Care Teams Credit Verification Clerk Relationship Specialty Start Date End Date Vivian Massey DO [address] [place] [address] PCP - General Internal Medicine 07/21/17 documented as of this encounter
--- OUTSIDE RECORDS SUMMARY | 2024-12-07 08:36 | XMS_ITS | Encounter Summary ---
Author Organization [facility] Address [address] [place] [address] Care Team Providers Care Accounting Intern Name Role Phone Vivian Massey DO Primary Care Provider [phone]- [phone] Encounter Details Date Type Department Care Team ([facility] st Contact Info) Description 09/03/2024 Lab Requisition [facility] - Main Lab [address] [facility] [place] [address] Araceli Maya MD [address] [id number] Essential (primary) hypertension; Anemia, unspecified; Unspecified osteoarthritis, [...] mmol/L LAB CHEMISTRY METHOD 09/03/2024 11:20 AM [facility] Potassium 3.2(L) 3.5 - 5.5 mmol/L LAB CHEMISTRY METHOD 09/03/2024 11:20 AM [facility] Chloride 100 96 - 110 mmol/L LAB CHEMISTRY METHOD 09/03/2024 11:20 AM [facility] CO2 33(H) 21 - 32 mmol/L LAB CHEMISTRY METHOD 09/03/2024 11:20 AM [facility] Anion Gap 8 3 - 11 LAB CHEMISTRY METHOD 09/03/2024 11:20 AM [facility] Glucose 84 70 - 100 mg/dL LAB CHEMISTRY METHOD 09/03/2024 11:20 AM [facility] BUN 15 5 - 25 mg/dL LAB CHEMISTRY METHOD 09/03/2024 11:20 AM [facility] Creatinine 0.89 0.50 - 1.10 mg/dL LAB CHEMISTRY METHOD 09/03/2024 11:20 AM [facility] eGFR 67 >=60 mL/min/1. 73m2 LAB CHEMISTRY METHOD 09/03/2024 11:20 AM [facility] Comment:Calculation based on the Chronic Kidney Disease Epidemiology Collaboration (CKD-EPI) equation refit without adjustment for race. BUN/Creatinine Ratio 16.9 LAB CHEMISTRY METHOD 09/03/2024 11:20 AM [facility] Calcium 8.8 8.5 - 10.5 mg/dL LAB CHEMISTRY METHOD 09/03/2024 11:20 AM [facility] Blood Venous blood specimen / Unknown Venipuncture / Unknown 09/03/2024 6:42 AM EDT 09/03/2024 9:10 AM EDT us Araceli Maya MD LAB BLOOD ORDERABLES Fin al Result [facility] [address] [place] [address], * (ABNORMAL) Complete blood count (09/03/2024 6:42 AM EDT) WBC 4.7(L) 4.8 - 10.8 K/mcL LAB HEMETOLOGY METHOD 09/03/2024 10:02 AM EDT [facility] RBC 3.50(L) 3.80 - 4.80 M/mcL LAB HEMETOLOGY METHOD 09/03/2024 10:02 AM [facility] Hemoglobin 10.8(L) 11.5 - 16.0 g/dL LAB HEMETOLOGY METHOD 09/03/2024 10:02 AM [facility] Hematocrit 34.4(L) 35.0 - 47.0 % LAB HEMETOLOGY METHOD 09/03/2024 10:02 AM [facility] MCV 97.2 79.0 - 98.0 FL LAB HEMETOLOGY METHOD 09/03/2024 10:02 AM [facility] MCH 30.5 27.0 - 32.0 pcg LAB HEMETOLOGY METHOD 09/03/2024 10:02 AM [facility] MCHC 31.4(L) 32.0 - 37.0 g/dL LAB HEMETOLOGY METHOD 09/03/2024 10:02 AM [facility] RDW 13.9 11.0 - 15.0 % LAB HEMETOLOGY METHOD 09/03/2024 10:02 AM [facility] Platelets 253 130 - 400 K/mcL LAB HEMETOLOGY METHOD 09/03/2024 10:02 AM [facility] MPV 9.1 7.0 - 11.0 FL LAB HEMETOLOGY METHOD 09/03/2024 10:02 AM EDT [facility] NRBC 0.0 <1.0 % LAB HEMETOLOGY METHOD 09/03/2024 10:02 AM EDT [facility] NRBC Absolute 0.00 <0.10 K/mcL LAB HEMETOLOGY METHOD 09/03/2024 10:02 AM EDT [facility] Blood Venous blood specimen / Unknown Venipuncture / Unknown 09/03/2024 6:42 AM EDT 09/03/2024 9:10 AM EDT us Araceli Maya MD LAB BLOOD ORDERABLES Fin al Result [facility] [address] [place] [address], documented in this encounter Visit Diagnoses Diagnosis Essential (primary) hypertension Unspecified essential hypertension Anemia, unspecified Unspecified osteoarthritis, unspecified site documented in this encounter Care Teams Accounting Intern Relationship Specialty Start Date End Date Vivian Massey DO [address] [place] [address] PCP - General Internal Medicine 07/21/17 documented as of this encounter
--- OUTSIDE RECORDS SUMMARY | 2024-12-07 08:36 | XMS_ITS | Encounter Summary ---
Author Organization [facility] Address [address] [place] [address] Care Team Providers Care Director Cardiology Name Role Phone Vivian Massey DO Primary Care Provider [phone]- [phone] Encounter Details Date Type Department Care Team (Late st Contact Info) Description 09/09/2024 Lab Requisition [facility] - Main Lab [address] [facility] [place] [address] Araceli Maya MD [address] [id number] Essential (primary) hypertension; Anemia, unspecified; Unspecified osteoarthritis, [...] Complete blood count (09/10/2024 6:14 AM EDT) [facility] Signature WBC 4.6(L) 4.8 - 10.8 K/mcL LAB HEMETOLOGY METHOD 09/10/2024 8:06 AM [facility] RBC 3.50(L) 3.80 - 4.80 M/mcL LAB HEMETOLOGY METHOD 09/10/2024 8:06 AM [facility] Hemoglobin 10.9(L) 11.5 - 16.0 g/dL LAB HEMETOLOGY METHOD 09/10/2024 8:06 AM [facility] Hematocrit 34.1(L) 35.0 - 47.0 % LAB HEMETOLOGY METHOD 09/10/2024 8:06 AM [facility] MCV 98.0 79.0 - 98.0 FL LAB HEMETOLOGY METHOD 09/10/2024 8:06 AM [facility] MCH 31.3 27.0 - 32.0 pcg LAB HEMETOLOGY METHOD 09/10/2024 8:06 AM [facility] MCHC 32.0 32.0 - 37.0 g/dL LAB HEMETOLOGY METHOD 09/10/2024 8:06 AM [facility] RDW 14.4 11.0 - 15.0 % LAB HEMETOLOGY METHOD 09/10/2024 8:06 AM [facility] Platelets 239 130 - 400 K/mcL LAB HEMETOLOGY METHOD 09/10/2024 8:06 AM [facility] MPV 9.1 7.0 - 11.0 FL LAB HEMETOLOGY METHOD 09/10/2024 8:06 AM [facility] NRBC 0.0 <1.0 % LAB HEMETOLOGY METHOD 09/10/2024 8:06 AM [facility] NRBC Absolute 0.00 <0.10 K/mcL LAB HEMETOLOGY METHOD 09/10/2024 8:06 AM [facility] Blood Venous blood specimen / Unknown Venipuncture / Unknown 09/10/2024 6:14 AM EDT 09/10/2024 7:30 AM EDT us Araceli Maya MD LAB BLOOD ORDERABLES Fin al Result [facility] [address] [place] [address], [place] [phone] * (ABNORMAL) Basic metabolic panel (09/10/2024 6:14 AM EDT) Sodium 138 133 - 145 mmol/L LAB CHEMISTRY METHOD 09/10/2024 8:28 AM [facility] Potassium 3.6 3.5 - 5.5 mmol/L LAB CHEMISTRY METHOD 09/10/2024 8:28 AM [facility] Chloride 100 96 - 110 mmol/L LAB CHEMISTRY METHOD 09/10/2024 8:28 AM [facility] CO2 33(H) 21 - 32 mmol/L LAB CHEMISTRY METHOD 09/10/2024 8:28 AM [facility] Anion Gap 5 3 - 11 LAB CHEMISTRY METHOD 09/10/2024 8:28 AM [facility] Glucose 86 70 - 100 mg/dL LAB CHEMISTRY METHOD 09/10/2024 8:28 AM [facility] BUN 18 5 - 25 mg/dL LAB CHEMISTRY METHOD 09/10/2024 8:28 AM [facility] Creatinine 0.81 0.50 - 1.10 mg/dL LAB CHEMISTRY METHOD 09/10/2024 8:28 AM [facility] eGFR 75 >=60 mL/min/1. 73m2 LAB CHEMISTRY METHOD 09/10/2024 8:28 AM EDT [facility] Comment:Calculation based on the Chronic Kidney Disease Epidemiology Collaboration (CKD-EPI) equation refit without adjustment for race. BUN/Creatinine Ratio 22.2 LAB CHEMISTRY METHOD 09/10/2024 8:28 AM EDT [facility] Calcium 8.5 8.5 - 10.5 mg/dL LAB CHEMISTRY METHOD 09/10/2024 8:28 AM EDT [facility] Blood Venous blood specimen / Unknown Venipuncture / Unknown 09/10/2024 6:14 AM EDT 09/10/2024 7:30 AM EDT us Araceli Maya MD LAB BLOOD ORDERABLES Fin al Result [facility] [address] [place] [address], documented in this encounter Visit Diagnoses Diagnosis Essential (primary) hypertension Unspecified essential hypertension Anemia, unspecified Unspecified osteoarthritis, unspecified site documented in this encounter Care Teams Director Cardiology Relationship Specialty Start Date End Date Vivian Massey DO [address] [place] [address] PCP - General Internal Medicine 07/21/17 documented as of this encounter
--- OUTSIDE RECORDS SUMMARY | 2024-12-07 08:36 | XMS_ITS | Clinical Summary ---
Author Organization [facility] Address [address] [address] Phone Care Team Providers Care Agricultural Engineering Technologist Name Role Phone Clementine Masseyfer Primary Care Provider [phone] Social History Tobacco Use Types Packs/Day Years [...] topic Medical Devices Not on file Insurance [facility] MEDICARE REPLACEMENT MEDICARE PART A & B [facility] MED[facility]PLACEMENT MEDICARE PART A & B [facility] MED[facility]PLACEMENT MEDICARE PART A & B [facility] [address] [place] [address] [facility] MEDICARE [facility]PLACEMENT MEDICARE PART A & B [facility] [address] [place] [address] [facility] MEDICARE [facility]PLACEMENT MEDICARE PART A & B [facility] MEDICARE REPLACEMENT MEDICARE PART A & B [facility] Care Teams Agricultural Engineering Technologist Relationship Specialty Start Date End Date Vivian Massey DO [address] [place] [id number] PCP - General Family Medicine 01/09/23 Additional Source Comments The information contained in this document represents components of the legal health record. It is not the complete legal health record.[facility]
--- OUTSIDE RECORDS SUMMARY | 2024-12-07 08:36 | XMS_ITS | Encounter Summary ---
Author Organization [facility] Address [address] [place] [address] Care Team Providers Care Anesthesiology Teacher Name Role Phone Vivian Massey Primary Care Provider [phone] Encounter Details Date Type Department Care Team ([facility] st Contact Info) Description 09/05/2024 Lab Requisition [facility] - Main Lab [address] [place] [address] Araceli Maya MD [address] [address] Hypokalemia Social History Tobacco Use Types Packs/Day [...] LAB CHEMISTRY METHOD 09/06/2024 7:53 AM EDT [facility] Potassium 3.6 3.5 - 5.5 mmol/L LAB CHEMISTRY METHOD 09/06/2024 7:53 AM [facility] Chloride 99 96 - 110 mmol/L LAB CHEMISTRY METHOD 09/06/2024 7:53 AM [facility] CO2 33(H) 21 - 32 mmol/L LAB CHEMISTRY METHOD 09/06/2024 7:53 AM [facility] Anion Gap 6 3 - 11 LAB CHEMISTRY METHOD 09/06/2024 7:53 AM [facility] Glucose 86 70 - 100 mg/dL LAB CHEMISTRY METHOD 09/06/2024 7:53 AM [facility] BUN 12 5 - 25 mg/dL LAB CHEMISTRY METHOD 09/06/2024 7:53 AM [facility] Creatinine 0.83 0.50 - 1.10 mg/dL LAB CHEMISTRY METHOD 09/06/2024 7:53 AM [facility] eGFR 73 >=60 mL/min/1. 73m2 LAB CHEMISTRY METHOD 09/06/2024 7:53 AM [facility] Comment:Calculation based on the Chronic Kidney Disease Epidemiology Collaboration (CKD-EPI) equation refit without adjustment for race. BUN/Creatinine Ratio 14.5 LAB CHEMISTRY METHOD 09/06/2024 7:53 AM [facility] Calcium 9.0 8.5 - 10.5 mg/dL LAB CHEMISTRY METHOD 09/06/2024 7:53 AM [facility] Blood Venous blood specimen / Unknown Venipuncture / Unknown 09/06/2024 5:51 AM EDT 09/06/2024 6:58 AM EDT us Araceli Maya MD LAB BLOOD ORDERABLES Fin al Result [facility] [address] [place] [address], documented in this encounter Visit Diagnoses Diagnosis Hypokalemia Hypopotassemia documented in this encounter Care Teams Anesthesiology Teacher Relationship Specialty Start Date End Date Vivian Massey DO [address] [place] [address] PCP - General Internal Medicine 07/21/17 documented as of this encounter
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
--- OUTSIDE RECORDS SUMMARY | 2024-12-07 08:36 | XMS_ITS | Encounter Summary ---
Author Organization [facility] Address [address] [place] [address] Care Team Providers Care Clay Temperer Name Role Phone Vivian Massey DO Primary Care Provider [phone]- [phone] Encounter Details Date Type Department Care Team (Late st Contact Info) Description 10/28/2024 Lab Requisition [facility] - Main Lab [address] [facility] [place] [address] Araceli Maya MD [address] [address] Unspecified osteoarthritis, unspecified site; Essential (primary) hypertension; [...] unspecified documented in this encounter Care Teams Clay Temperer Relationship Specialty Start Date End Date Vivian Massey DO [address] [place], [place] PCP - General Internal Medicine 07/21/17 documented as of this encounter
--- OUTSIDE RECORDS SUMMARY | 2024-12-07 08:36 | XMS_ITS | Encounter Summary ---
Author Organization [employer] Address [address] [facility] 7[address] [place] [address] Care Team Providers Care Automatic Equipment Technician Name Role Phone Vivian Massey DO Primary Care Provider + [phone] Reason for Visit * Reason Onset Date Comments Durable Medical Equipment 02/14/2023 Encounter Details Date Type Department Care Team ([facility] st Contact Info) Description 02/14/2023 Telephone [facility] [address] [place] [address] Vivian Massey DO [address] [place], [place] [phone] Durable Medical Equipment Social History Tobacco Use [...] documented as of this encounter Care Teams Automatic Equipment Technician Relationship Specialty Start Date End Date Vivian Massey DO [address] [place] [address] PCP - General Family Medicine 07/27/20 documented as of this encounter
--- OUTSIDE RECORDS SUMMARY | 2024-12-07 08:36 | XMS_ITS | Encounter Summary ---
Author Organization [facility] Address [address] [place] [address] Care Team Providers Care Chemical Recovery Operator Name Role Phone Vivian Massey Primary Care Provider [phone]- [phone] Encounter Details Date Type Department Care Team ([facility] st Contact Info) Description 10/07/2024 Lab Requisition [facility] - Main Lab [address] [facility] [place] [address] Araceli Maya MD [address] [phone] Urinary tract infection, site not specified Social [...] reflex microscopic (10/06/2024 8:10 AM EDT) Specific [place] Urine 1.022 1.003 - 1.030 LAB URINALYSIS [...] - AUTOMATED METHOD 10/07/2024 12:13 PM EDT [facility] Squamous Epithelial, Urine 70(H) 0 - 60 /LPF LAB URINALYSIS - AUTOMATED METHOD 10/07/2024 12:13 PM EDT [facility] Non-Squamous Epithelial, Urine 2-5 TRANSITIONAL EPI /LPF LAB URINALYSIS - AUTOMATED METHOD 10/07/2024 12:13 PM EDT [facility] Crystals, Urine MOD CALCIUM OXALATE /LPF LAB URINALYSIS - AUTOMATED METHOD 10/07/2024 12:13 PM EDT [facility] Bacteria, Urine Moderate(A) Negative /HPF LAB URINALYSIS - AUTOMATED METHOD 10/07/2024 12:13 PM EDT [facility] Hyaline Casts, Urine 1.6 0 - 3 /LPF LAB URINALYSIS - AUTOMATED METHOD 10/07/2024 12:13 PM [facility] Urine Urine specimen obtained by clean catch procedure / Unknown Non-blood Collection / Unknown 10/06/2024 8:10 AM EDT 10/07/2024 11:17 AM EDT Araceli Maya MD LAB URINE ORDERABLES Fin al Result [facility] [address] [place] [address], * (ABNORMAL) Culture urine (10/06/2024 8:10 AM EDT) Culture, Urine >=100,000 CFU/mL Escherichia coli(A) RADHAMES 10/10/2024 7:49 AM EDT [facility] Comment: This is an edited result. Previous organism was Gram negative bacilli on 10/08/2024 at 0843 EDT. Culture, Urine 10,000-49,000 CFU/mL Morganella morganii ssp morganii(A) RADHAMES 10/10/2024 7:49 AM EDT [facility] Comment: The organism value [...] - GENER AL ORDERABLES Final Result [facility] [address] [place] [address], documented in this encounter Visit Diagnoses Diagnosis Urinary tract infection, site not specified documented in this encounter Care Teams Chemical Recovery Operator Relationship Specialty Start Date End Date Vivian Massey DO [address] [place] [address] PCP - General Internal Medicine 07/21/17 documented as of this encounter
--- OUTSIDE RECORDS SUMMARY | 2024-12-07 08:36 | XMS_ITS | Encounter Summary ---
Author Organization [facility] Address [address] [place] [address] Care Team Providers Care Job Placement Counselor Name Role Phone Vivian Massey DO Primary Care Provider +1- [phone] Encounter Details Date Type Department Care Team (Late st Contact Info) Description 10/21/2024 Lab Requisition [facility] - Main Lab [address] [facility] [place] [address] Araceli Maya MD [address] [phone] Essential (primary) hypertension; Anemia, unspecified; Unspecified osteoarthritis, [...] Complete blood count (10/22/2024 6:15 AM EDT) [facility] Signature WBC 3.6(L) 4.8 - 10.8 [...] AM EDT 10/22/2024 8:58 AM EDT us Araecli Maya MD LAB BLOOD ORDERABLES Fin al Result [facility] [address] [place] [address], * (ABNORMAL) Basic metabolic panel (10/22/2024 6:15 [...] LAB CHEMISTRY METHOD 10/22/2024 9:29 AM EDT [facility] Comment:Calculation based on the Chronic Kidney Disease Epidemiology Collaboration (CKD-EPI) equation refit without adjustment for race. BUN/Creatinine Ratio 15.7 LAB CHEMISTRY METHOD 10/22/2024 9:29 AM EDT [facility] Calcium 8.5 8.5 - 10.5 mg/dL LAB CHEMISTRY METHOD 10/22/2024 9:29 AM EDT [facility] Blood Venous blood specimen / Unknown Venipuncture / Unknown 10/22/2024 6:15 AM EDT 10/22/2024 8:58 AM EDT us Araceli Maya MD LAB BLOOD ORDERABLES Fin al Result [facility] [address] [place] [address], documented in this encounter Visit Diagnoses Diagnosis Essential (primary) hypertension Unspecified essential hypertension Anemia, unspecified Unspecified osteoarthritis, unspecified site documented in this encounter Care Teams Job Placement Counselor Relationship Specialty Start Date End Date Vivian Massey DO [address] [place] [address] PCP - General Internal Medicine 07/21/17 documented as of this encounter
--- OUTSIDE RECORDS SUMMARY | 2024-12-07 08:36 | XMS_ITS | Encounter Summary ---
Author Organization [facility] Address [address] [place] [address] Care Team Providers Care Handle Lathe Operator Name Role Phone Vivian Massey Primary Care Provider [phone]- [phone] Encounter Details Date Type Department Care Team ([facility] st Contact Info) Description 09/15/2024 Lab Requisition [facility] - Main Lab 299 [facility] [place] [address] Annalisa Kulkarni PA [address] [place] [address] Altered mental status, unspecified Social [...] Urinalysis with reflex microscopic (09/14/2024 11:00 AM [facility]) Specific [place] Urine 1.028 1.003 - 1.030 LAB URINALYSIS - AUTOMATED METHOD 09/15/2024 10:40 AM [facility] pH, Urine 6.0 5.0 - 8.0 pH LAB URINALYSIS - AUTOMATED METHOD 09/15/2024 10:40 AM [facility] Leukocytes, Urine Moderate(A) Negative LAB URINALYSIS - AUTOMATED METHOD 09/15/2024 10:40 AM [facility] Nitrite, Urine Positive(A) Negative LAB URINALYSIS - AUTOMATED METHOD 09/15/2024 10:40 AM [facility] Protein, Urine 30(A) <=Trace mg/dL LAB URINALYSIS - AUTOMATED METHOD 09/15/2024 10:40 AM [facility] Glucose, Urine Negative Negative mg/dL LAB URINALYSIS - AUTOMATED METHOD 09/15/2024 10:40 AM [facility] Ketones, Urine Trace(A) Negative mg/dL LAB URINALYSIS - AUTOMATED METHOD 09/15/2024 10:40 AM [facility] Urobilinogen , Urine 1.0 0.2 - 1.0 mg/dL LAB URINALYSIS - AUTOMATED METHOD 09/15/2024 10:40 AM [facility] Bilirubin, Urine Negative Negative LAB URINALYSIS - AUTOMATED METHOD 09/15/2024 10:40 AM [facility] Blood, Urine Trace(A) Negative LAB URINALYSIS - AUTOMATED METHOD 09/15/2024 10:40 AM [facility] RBC, Urine 2.0 0 - 4 /HPF LAB URINALYSIS - AUTOMATED METHOD 09/15/2024 10:40 AM [facility] WBC, Urine 49.2(H) 0 - 4 /HPF LAB URINALYSIS - AUTOMATED METHOD 09/15/2024 10:[address] [facility] Squamous Epithelial, Urine 58 0 - 60 /LPF LAB URINALYSIS - AUTOMATED METHOD 09/15/2024 10:[address] [facility] Crystals, Urine MOD CALCIUM OXALATE /LPF LAB URINALYSIS - AUTOMATED METHOD 09/15/2024 10:[address] [facility] Bacteria, Urine Many(A) Negative /HPF LAB URINALYSIS - AUTOMATED METHOD 09/15/2024 10:[address] [facility] Hyaline Casts, Urine 0.0 0 - 3 /LPF LAB URINALYSIS - AUTOMATED METHOD 09/15/2024 10:[address] [facility] Urine Urine specimen obtained by clean catch procedure / Unknown Non-blood Collection / Unknown 09/14/2024 11:00 AM EDT 09/15/2024 8:28 AM EDT us Annalisa KELLY LAB URINE ORDERABLES Final Resul t [facility] [address] [place] [address], * (ABNORMAL) Culture urine (09/14/2024 11:00 AM EDT) Culture, Urine >100,000 CFU/mL Klebsiella pneumoniae ssp pneumoniae(A) RADHAMES 09/18/2024 7:[address] [facility] Comment: This is an edited result. Previous organism was Gram negative bacilli on 09/16/2024 at 1010 EDT. Culture, Urine 50,000-100,00 0 CFU/mL Aerococcus urinae(A) RADHAMES 09/18/2024 7:[address] [facility] Comment: Susceptibility testing not routinely [...] MICROBIOLOGY - GENERAL ORDER BABAR Final Result [facility] [address] [place] [address], documented in this encounter Visit Diagnoses Diagnosis Altered mental status, unspecified documented in this encounter Care Teams Handle Lathe Operator Relationship Specialty Start Date End Date Vivian Massey DO [address] [place] [address] PCP - General Internal Medicine 07/21/17 documented as of this encounter
--- OUTSIDE RECORDS SUMMARY | 2024-12-07 08:37 | XMS_ITS | Encounter Summary ---
Author Organization [facility] Address [address] [place] [address] Care Team Providers Care Park Guard Name Role Phone Vivian Massey DO Primary Care Provider +1- [phone] Encounter Details Date Type Department Care Team (Late st Contact Info) Description 07/20/2024 Lab Requisition [facility] - Main Lab 299 [facility] [place] [address] Araceli Maya MD [address] [phone] Anemia, unspecified; Essential (primary) hypertension; Vitamin D [...] mmol/L LAB CHEMISTRY METHOD 07/20/2024 10:59 AM [facility] Potassium 3.9 3.5 - 5.5 mmol/L LAB CHEMISTRY METHOD 07/20/2024 10:59 AM [facility] Chloride 85(L) 96 - 110 mmol/L LAB CHEMISTRY METHOD 07/20/2024 10:59 AM [facility] CO2 31 21 - 32 mmol/L LAB CHEMISTRY METHOD 07/20/2024 10:59 AM [facility] Anion Gap 8 3 - 11 LAB CHEMISTRY METHOD 07/20/2024 10:59 AM [facility] Glucose 78 70 - 100 mg/dL LAB CHEMISTRY METHOD 07/20/2024 10:59 AM [facility] BUN 13 5 - 25 mg/dL LAB CHEMISTRY METHOD 07/20/2024 10:59 AM [facility] Creatinine 0.63 0.50 - 1.10 mg/dL LAB CHEMISTRY METHOD 07/20/2024 10:59 AM [facility] eGFR 92 >=60 mL/min/1. 73m2 LAB CHEMISTRY METHOD 07/20/2024 10:59 AM [facility] Comment:Calculation based on the Chronic Kidney Disease Epidemiology Collaboration (CKD-EPI) equation refit without adjustment for race. BUN/Creatinine Ratio 20.6 LAB CHEMISTRY METHOD 07/20/2024 10:59 AM [facility] Calcium 8.5 8.5 - 10.5 mg/dL LAB CHEMISTRY METHOD 07/20/2024 10:59 AM [facility] Blood Venous blood specimen / Unknown Venipuncture / Unknown 07/20/2024 6:07 AM EDT 07/20/2024 9:41 AM EDT Araceli Maya MD LAB BLOOD ORDERABLES Fin al Result [facility] [address] [place] [address], * (ABNORMAL) Complete blood count (07/20/2024 6:07 AM EDT) WBC 3.8(L) 4.8 - 10.8 K/mcL LAB HEMETOLOGY METHOD 07/20/2024 10:30 AM EDT [facility] RBC 3.60(L) 3.80 - 4.80 M/mcL LAB HEMETOLOGY METHOD 07/20[facility] Hemoglobin 11.4(L) 11.5 - 16.0 g/dL LAB HEMETOLOGY METHOD 07/20/2024 10:30 AM [facility] Hematocrit 33.3(L) 35.0 - 47.0 % LAB HEMETOLOGY METHOD 07/20/2024 10[facility] MCV 93.3 79.0 - 98.0 FL LAB HEMETOLOGY METHOD 07/20/2024 10:30 [facility] MCH 31.9 27.0 - 32.0 pcg LAB HEMETOLOGY METHOD 07/20/2024 10:30 AM EDT [facility] MCHC 34.2 32.0 - 37.0 g/dL LAB HEMETOLOGY METHOD 07/20/2024 10:30 [facility] RDW 12.7 11.0 - 15.0 % LAB HEMETOLOGY METHOD 07/20/2024 10:30 [facility] Platelets 194 130 - 400 K/mcL LAB HEMETOLOGY METHOD 07/20/2024 10:30 [facility] MPV 9.6 7.0 - 11.0 FL LAB HEMETOLOGY METHOD 07/20/2024 10:30 AM EDT [facility] NRBC 0.0 <1.0 % LAB HEMETOLOGY METHOD 07/20/2024 10:30 AM EDT [facility] NRBC Absolute 0.00 <0.10 K/mcL LAB HEMETOLOGY METHOD 07/20/2024 10:30 AM EDT [facility] Blood Venous blood specimen / Unknown Venipuncture / Unknown 07/20/2024 6:07 AM EDT 07/20/2024 9:41 AM EDT us Araceli Maya MD LAB BLOOD ORDERABLES Fin al Result [facility] [address] [place] [address], documented in this encounter Visit Diagnoses Diagnosis Anemia, unspecified Essential (primary) hypertension Unspecified essential hypertension Vitamin D deficiency, unspecified documented in this encounter Care Teams Park Guard Relationship Specialty Start Date End Date Vivian Massey DO [address] [place], [place] PCP - General Internal Medicine 07/21/17 documented as of this encounter
--- OUTSIDE RECORDS SUMMARY | 2024-12-07 08:37 | XMS_ITS | Encounter Summary ---
Author Organization [facility] Address [address] [place] [address] Care Team Providers Care Steam Table Attendant Name Role Phone Vivian Massey DO Primary Care Provider +1- [phone] Encounter Details Date Type Department Care Team (Late st Contact Info) Description 07/29/2024 Lab Requisition [facility] - Main Lab 299 [facility] [place] [address] Araceli Maya MD [address] [phone] Essential (primary) hypertension; Anemia, unspecified; Unspecified osteoarthritis, [...] mmol/L LAB CHEMISTRY METHOD 07/30/2024 12:09 PM [facility] Potassium 3.9 3.5 - 5.5 mmol/L LAB CHEMISTRY METHOD 07/30/2024 12:09 PM [facility] Chloride 96 96 - 110 mmol/L LAB CHEMISTRY METHOD 07/30/2024 12:09 PM [facility] CO2 30 21 - 32 mmol/L LAB CHEMISTRY METHOD 07/30/2024 12:09 PM [facility] Anion Gap 7 3 - 11 LAB CHEMISTRY METHOD 07/30/2024 12:09 PM [facility] Glucose 71 70 - 100 mg/dL LAB CHEMISTRY METHOD 07/30/2024 12:09 PM [facility] BUN 13 5 - 25 mg/dL LAB CHEMISTRY METHOD 07/30/2024 12:09 PM [facility] Creatinine 0.80 0.50 - 1.10 mg/dL LAB CHEMISTRY METHOD 07/30/2024 12:09 PM [facility] eGFR 76 >=60 mL/min/1. 73m2 LAB CHEMISTRY METHOD 07/30/2024 12:09 PM [facility] Comment:Calculation based on the Chronic Kidney Disease Epidemiology Collaboration (CKD-EPI) equation refit without adjustment for race. BUN/Creatinine Ratio 16.3 LAB CHEMISTRY METHOD 07/30/2024 12:09 PM [facility] Calcium 8.3(L) 8.5 - 10.5 mg/dL LAB CHEMISTRY METHOD 07/30/2024 12:09 PM [facility] Blood Venous blood specimen / Unknown Venipuncture / Unknown 07/30/2024 6:05 AM EDT 07/30/2024 10:35 AM EDT us Whit Laba Elder MD LAB BLOOD ORDERABLES Fin al Result [facility] [address] [place] [address], * (ABNORMAL) Complete blood count (07/30/2024 6:05 AM EDT) WBC 4.6(L) 4.8 - 10.8 K/mcL LAB HEMETOLOGY METHOD 07/30/2024 10:49 AM EDT [facility] RBC 3.40(L) 3.80 - 4.80 M/mcL LAB HEMETOLOGY METHOD 07/30/2024 10:49 AM [facility] Hemoglobin 10.5(L) 11.5 - 16.0 g/dL LAB HEMETOLOGY METHOD 07/30/2024 10:49 AM [facility] Hematocrit 32.1(L) 35.0 - 47.0 % LAB HEMETOLOGY METHOD 07/30/2024 10:49 AM [facility] MCV 95.3 79.0 - 98.0 FL LAB HEMETOLOGY METHOD 07/30/2024 10:49 AM [facility] MCH 31.2 27.0 - 32.0 pcg LAB HEMETOLOGY METHOD [facility]24 [facility] MCHC 32.7 32.0 - 37.0 g/dL LAB HEMETOLOGY METHOD 07/30/2024 10:[facility] RDW 13.5 11.0 - 15.0 % LAB HEMETOLOGY METHOD 07/30/2024 10:[facility] Platelets 366 130 - 400 K/mcL LAB HEMETOLOGY METHOD 07/30/2024 10:[facility] MPV 8.9 7.0 - 11.0 FL LAB HEMETOLOGY METHOD 07/30/2024 10:49 AM EDT [facility] NRBC 0.0 <1.0 % LAB HEMETOLOGY METHOD 07/30/2024 10:49 AM EDT [facility] NRBC Absolute 0.00 <0.10 K/mcL LAB HEMETOLOGY METHOD 07/30/2024 10:49 AM EDT [facility] Blood Venous blood specimen / Unknown Venipuncture / Unknown 07/30/2024 6:05 AM EDT 07/30/2024 10:35 AM EDT us Araceli Maya MD LAB BLOOD ORDERABLES Fin al Result [facility] [address] [place] [address], documented in this encounter Visit Diagnoses Diagnosis Essential (primary) hypertension Unspecified essential hypertension Anemia, unspecified Unspecified osteoarthritis, unspecified site documented in this encounter Care Teams Steam Table Attendant Relationship Specialty Start Date End Date Vivian Msasey DO [address] [place], [place] PCP - General Internal Medicine 07/21/17 documented as of this encounter
--- OUTSIDE RECORDS SUMMARY | 2024-12-07 08:37 | XMS_ITS | Encounter Summary ---
Author Organization [facility] Address [address] [place] [address] Care Team Providers Care Sustainability Communicator Name Role Phone Vivian Massey DO Primary Care Provider +1- [phone] Encounter Details Date Type Department Care Team (Late st Contact Info) Description 08/26/2024 Lab Requisition [facility] - Main Lab 299 [facility] [place] [address] Araceli Maya MD [address] [phone] Essential (primary) hypertension; Anemia, unspecified; Unspecified osteoarthritis, [...] Complete blood count (08/27/2024 6:06 AM EDT) [facility] WBC 3.2(L) 4.8 - 10.8 K/mcL LAB HEMETOLOGY METHOD 08/27/2024 8:13 AM [facility] RBC 3.80 3.80 - 4.80 M/mcL LAB HEMETOLOGY METHOD 08/27/2024 8:13 AM [facility] Hemoglobin 11.8 11.5 - 16.0 g/dL LAB HEMETOLOGY METHOD 08/27/2024 8:13 AM [facility] Hematocrit 36.4 35.0 - 47.0 % LAB HEMETOLOGY METHOD 08/27/2024 8:13 AM [facility] MCV 95.5 79.0 - 98.0 FL LAB HEMETOLOGY METHOD 08/27/2024 8:13 AM [facility] MCH 31.0 27.0 - 32.0 pcg LAB HEMETOLOGY METHOD 08/27/2024 8:13 AM [facility] MCHC 32.4 32.0 - 37.0 g/dL LAB HEMETOLOGY METHOD 08/27/2024 8:13 AM [facility] RDW 14.0 11.0 - 15.0 % LAB HEMETOLOGY METHOD 08/27/2024 8:13 AM [facility] Platelets 259 130 - 400 K/mcL LAB HEMETOLOGY METHOD 08/27/2024 8:13 AM [facility] MPV 9.2 7.0 - 11.0 FL LAB HEMETOLOGY METHOD 08/27/2024 8:13 AM [facility] NRBC 0.0 <1.0 % LAB HEMETOLOGY METHOD 08/27/2024 8:13 AM [facility] NRBC Absolute 0.00 <0.10 K/mcL LAB HEMETOLOGY METHOD 08/27/2024 8:13 AM [facility] Blood Venous blood specimen / Unknown Venipuncture / Unknown 08/27/2024 6:06 AM EDT 08/27/2024 7:07 AM EDT us Araceli Maya MD LAB BLOOD ORDERABLES Fin al Result [facility] [address] [place] [address], [place] [phone] * (ABNORMAL) Basic metabolic panel (08/27/2024 6:06 AM EDT) Sodium 137 133 - 145 mmol/L LAB CHEMISTRY METHOD 08/27/2024 8:42 AM [facility] Potassium 3.9 3.5 - 5.5 mmol/L LAB CHEMISTRY METHOD 08/27/2024 8:42 AM [facility] Chloride 97 96 - 110 mmol/L LAB CHEMISTRY METHOD 08/27/2024 8:42 AM [facility] CO2 34(H) 21 - 32 mmol/L LAB CHEMISTRY METHOD 08/27/2024 8:42 AM [facility] Anion Gap 6 3 - 11 LAB CHEMISTRY METHOD 08/27/2024 8:42 AM [facility] Glucose 83 70 - 100 mg/dL LAB CHEMISTRY METHOD 08/27/2024 8:42 AM [facility] BUN 13 5 - 25 mg/dL LAB CHEMISTRY METHOD 08/27/2024 8:42 AM [facility] Creatinine 0.86 0.50 - 1.10 mg/dL LAB CHEMISTRY METHOD 08/27/2024 8:42 AM [facility] eGFR 70 >=60 mL/min/1. 73m2 LAB CHEMISTRY METHOD 08/27/2024 8:42 AM EDT [facility] Comment:Calculation based on the Chronic Kidney Disease Epidemiology Collaboration (CKD-EPI) equation refit without adjustment for race. BUN/Creatinine Ratio 15.1 LAB CHEMISTRY METHOD 08/27/2024 8:42 AM EDT [facility] Calcium 8.5 8.5 - 10.5 mg/dL LAB CHEMISTRY METHOD 08/27/2024 8:42 AM EDT [facility] Blood Venous blood specimen / Unknown Venipuncture / Unknown 08/27/2024 6:06 AM EDT 08/27/2024 7:07 AM EDT us Araceli Maya MD LAB BLOOD ORDERABLES Fin al Result [facility] [address] [place] [address], documented in this encounter Visit Diagnoses Diagnosis Essential (primary) hypertension Unspecified essential hypertension Anemia, unspecified Unspecified osteoarthritis, unspecified site documented in this encounter Care Teams Sustainability Communicator Relationship Specialty Start Date End Date Vivian Massey DO [address] [place] [address] PCP - General Internal Medicine 07/21/17 documented as of this encounter
--- OUTSIDE RECORDS SUMMARY | 2024-12-07 08:37 | XMS_ITS | Encounter Summary ---
Author Organization [facility] Address [address] [place] [address] Care Team Providers Care Home Inspector Name Role Phone Vivian Massey DO Primary Care Provider +1- [phone] Encounter Details Date Type Department Care Team (Late st Contact Info) Description 07/22/2024 Lab Requisition [facility] - Main Lab 299 [facility] [place] [address] Araceli Maya MD [address] [phone] Essential (primary) hypertension; Anemia, unspecified; Unspecified osteoarthritis, [...] mmol/L LAB CHEMISTRY METHOD 07/23/2024 10:46 AM [facility] Potassium 3.6 3.5 - 5.5 mmol/L LAB CHEMISTRY METHOD 07/23/2024 10:46 AM [facility] Chloride 92(L) 96 - 110 mmol/L LAB CHEMISTRY METHOD 07/23/2024 10:46 AM [facility] CO2 31 21 - 32 mmol/L LAB CHEMISTRY METHOD 07/23/2024 10:46 AM [facility] Anion Gap 7 3 - 11 LAB CHEMISTRY METHOD 07/23/2024 10:46 AM [facility] Glucose 82 70 - 100 mg/dL LAB CHEMISTRY METHOD 07/23/2024 10:46 AM [facility] BUN 19 5 - 25 mg/dL LAB CHEMISTRY METHOD 07/23/2024 10:46 AM [facility] Creatinine 0.84 0.50 - 1.10 mg/dL LAB CHEMISTRY METHOD 07/23/2024 10:46 AM [facility] eGFR 72 >=60 mL/min/1. 73m2 LAB CHEMISTRY METHOD 07/23/2024 10:46 AM [facility] Comment:Calculation based on the Chronic Kidney Disease Epidemiology Collaboration (CKD-EPI) equation refit without adjustment for race. BUN/Creatinine Ratio 22.6 LAB CHEMISTRY METHOD 07/23/2024 10:46 AM [facility] Calcium 8.8 8.5 - 10.5 mg/dL LAB CHEMISTRY METHOD 07/23/2024 10:46 AM [facility] Blood Venous blood specimen / Unknown Venipuncture / Unknown 07/23/2024 7:15 AM EDT 07/23/2024 10:01 AM EDT us Araceli Maya MD LAB BLOOD ORDERABLES Fin al Result [facility] [address] [place] [address], * (ABNORMAL) Complete blood count (07/23/2024 7:15 AM EDT) WBC 4.5(L) 4.8 - 10.8 K/mcL LAB HEMETOLOGY METHOD 07/23/2024 10:27 AM EDT [facility] RBC 3.70(L) 3.80 - 4.80 M/mcL LAB HEMETOLOGY METHOD 07/23/2024 10:27 AM EDT [facility] Hemoglobin 11.5 11.5 - 16.0 g/dL LAB HEMETOLOGY METHOD 07/23/2024 10:27 AM EDT [facility] Hematocrit 35.2 35.0 - 47.0 % LAB HEMETOLOGY METHOD 07/23/2024 10:27 AM EDT [facility] MCV 95.7 79.0 - 98.0 FL LAB HEMETOLOGY METHOD 07/23/2024 10:27 AM EDT [facility] MCH 31.3 27.0 - 32.0 pcg LAB HEMETOLOGY METHOD 07/23/2024 10:27 AM EDT [facility] MCHC 32.7 32.0 - 37.0 g/dL LAB HEMETOLOGY METHOD 07/23/2024 10:27 AM EDT [facility] RDW 13.5 11.0 - 15.0 % LAB HEMETOLOGY METHOD 07/23[facility]2024 [facility] Platelets 287 130 - 400 K/mcL LAB HEMETOLOGY METHOD 07/23/2024 10:27 AM EDT [facility] MPV 9.3 7.0 - 11.0 FL LAB HEMETOLOGY METHOD 07/23/2024 10:27 AM EDT [facility] NRBC 0.0 <1.0 % LAB HEMETOLOGY METHOD 07/23/2024 10:27 AM EDT [facility] NRBC Absolute 0.00 <0.10 K/mcL LAB HEMETOLOGY METHOD 07/23/2024 10:27 AM EDT [facility] Blood Venous blood specimen / Unknown Venipuncture / Unknown 07/23/2024 7:15 AM EDT 07/23/2024 10:01 AM EDT us Araceli Maya MD LAB BLOOD ORDERABLES Fin al Result [facility] [address] [place] [address], documented in this encounter Visit Diagnoses Diagnosis Essential (primary) hypertension Unspecified essential hypertension Anemia, unspecified Unspecified osteoarthritis, unspecified site documented in this encounter Care Teams Home Inspector Relationship Specialty Start Date End Date Vivian Massey DO [address] [place] [address] PCP - General Internal Medicine 07/21/17 documented as of this encounter
--- OUTSIDE RECORDS SUMMARY | 2024-12-07 08:37 | XMS_ITS | Encounter Summary ---
Author Organization [facility] Address [address] [place] [address] Care Team Providers Care Waste Hand Name Role Phone Vivian Massey DO Primary Care Provider +1- [phone] Encounter Details Date Type Department Care Team (Late st Contact Info) Description 08/19/2024 Lab Requisition [facility] - Main Lab 299 [facility] [place] [address] Araceli Maya MD [address] [phone] Essential (primary) hypertension; Anemia, unspecified; Unspecified osteoarthritis, [...] Complete blood count (08/20/2024 6:15 AM EDT) [facility] Signature WBC 3.9(L) 4.8 - 10.8 K/mcL LAB HEMETOLOGY METHOD 08/20/2024 8:19 AM [facility] RBC 3.50(L) 3.80 - 4.80 M/mcL LAB HEMETOLOGY METHOD 08/20/2024 8:19 AM [facility] Hemoglobin 10.7(L) 11.5 - 16.0 g/dL LAB HEMETOLOGY METHOD 08/20/2024 8:19 AM [facility] Hematocrit 33.3(L) 35.0 - 47.0 % LAB HEMETOLOGY METHOD 08/20/2024 8:19 AM [facility] MCV 96.5 79.0 - 98.0 FL LAB HEMETOLOGY METHOD 08/20/2024 8:19 AM [facility] MCH 31.0 27.0 - 32.0 pcg LAB HEMETOLOGY METHOD 08/20/2024 8:19 AM [facility] MCHC 32.1 32.0 - 37.0 g/dL LAB HEMETOLOGY METHOD 08/20/2024 8:19 AM [facility] RDW 14.0 11.0 - 15.0 % LAB HEMETOLOGY METHOD 08/20/2024 8:19 AM [facility] Platelets 231 130 - 400 K/mcL LAB HEMETOLOGY METHOD 08/20/2024 8:19 AM [facility] MPV 9.3 7.0 - 11.0 FL LAB HEMETOLOGY METHOD 08/20/2024 8:19 AM [facility] NRBC 0.0 <1.0 % LAB HEMETOLOGY METHOD 08/20/2024 8:19 AM [facility] NRBC Absolute 0.00 <0.10 K/mcL LAB HEMETOLOGY METHOD 08/20/2024 8:19 AM [facility] Blood Venous blood specimen / Unknown Venipuncture / Unknown 08/20/2024 6:15 AM EDT 08/20/2024 8:00 AM EDT us Araceli Maya MD LAB BLOOD ORDERABLES Fin al Result [facility] [address] [place] [address], * (ABNORMAL) Basic metabolic panel (08/20/2024 6:15 AM EDT) Sodium 134 133 - 145 mmol/L LAB CHEMISTRY METHOD 08/20/2024 8:42 AM [facility] Potassium 3.2(L) 3.5 - 5.5 mmol/L LAB CHEMISTRY METHOD 08/20/2024 8:42 AM [facility] Chloride 97 96 - 110 mmol/L LAB CHEMISTRY METHOD 08/20/2024 8:42 AM [facility] CO2 34(H) 21 - 32 mmol/L LAB CHEMISTRY METHOD 08/20/2024 8:42 AM [facility] Anion Gap 3 3 - 11 LAB CHEMISTRY METHOD 08/20/2024 8:42 AM [facility] Glucose 90 70 - 100 mg/dL LAB CHEMISTRY METHOD 08/20/2024 8:42 AM [facility] BUN 15 5 - 25 mg/dL LAB CHEMISTRY METHOD 08/20/2024 8:42 AM [facility] Creatinine 0.76 0.50 - 1.10 mg/dL LAB CHEMISTRY METHOD 08/20/2024 8:42 AM [facility] eGFR 81 >=60 mL/min/1. 73m2 LAB CHEMISTRY METHOD 08/20/2024 8:42 AM EDT [facility] Comment:Calculation based on the Chronic Kidney Disease Epidemiology Collaboration (CKD-EPI) equation refit without adjustment for race. BUN/Creatinine Ratio 19.7 LAB CHEMISTRY METHOD 08/20/2024 8:42 AM EDT [facility] Calcium 8.9 8.5 - 10.5 mg/dL LAB CHEMISTRY METHOD 08/20/2024 8:42 AM EDT [facility] Blood Venous blood specimen / Unknown Venipuncture / Unknown 08/20/2024 6:15 AM EDT 08/20/2024 8:00 AM EDT us Araceli Maya MD LAB BLOOD ORDERABLES Fin al Result [facility] [address] [place] [address], documented in this encounter Visit Diagnoses Diagnosis Essential (primary) hypertension Unspecified essential hypertension Anemia, unspecified Unspecified osteoarthritis, unspecified site documented in this encounter Care Teams Waste Hand Relationship Specialty Start Date End Date Vivian Massey DO [address] [place] [address] PCP - General Internal Medicine 07/21/17 documented as of this encounter
--- OUTSIDE RECORDS SUMMARY | 2024-12-07 08:37 | XMS_ITS | Encounter Summary ---
Author Organization [facility] Address [address] [place] [address] Care Team Providers Care Front Attendant Name Role Phone Vivian Massey DO Primary Care Provider +1- [phone] Encounter Details Date Type Department Care Team (Late st Contact Info) Description 08/12/2024 Lab Requisition [facility] - Main Lab 299 [facility] [place] [address] Araceli Maya MD [address] [phone] Essential (primary) hypertension; Anemia, unspecified; Unspecified osteoarthritis, [...] mmol/L LAB CHEMISTRY METHOD 08/13/2024 10:09 AM [facility] Potassium 3.7 3.5 - 5.5 mmol/L LAB CHEMISTRY METHOD 08/13/2024 10:09 AM [facility] Chloride 99 96 - 110 mmol/L LAB CHEMISTRY METHOD 08/13/2024 10:09 AM [facility] CO2 33(H) 21 - 32 mmol/L LAB CHEMISTRY METHOD 08/13/2024 10:09 AM [facility] Anion Gap 3 3 - 11 LAB CHEMISTRY METHOD 08/13/2024 10:09 AM [facility] Glucose 80 70 - 100 mg/dL LAB CHEMISTRY METHOD 08/13/2024 10:09 AM [facility] BUN 12 5 - 25 mg/dL LAB CHEMISTRY METHOD 08/13/2024 10:09 AM [facility] Creatinine 0.76 0.50 - 1.10 mg/dL LAB CHEMISTRY METHOD 08/13/2024 10:09 AM [facility] eGFR 81 >=60 mL/min/1. 73m2 LAB CHEMISTRY METHOD 08/13/2024 10:09 AM [facility] Comment:Calculation based on the Chronic Kidney Disease Epidemiology Collaboration (CKD-EPI) equation refit without adjustment for race. BUN/Creatinine Ratio 15.8 LAB CHEMISTRY METHOD 08/13/2024 10:09 AM [facility] Calcium 9.0 8.5 - 10.5 mg/dL LAB CHEMISTRY METHOD 08/13/2024 10:09 AM [facility] Blood Venous blood specimen / Unknown Venipuncture / Unknown 08/13/2024 6:05 AM EDT 08/13/2024 9:23 AM EDT Araceli Maya MD LAB BLOOD ORDERABLES Fin al Result [facility] [address] [place] [address], * (ABNORMAL) Complete blood count (08/13/2024 6:05 AM EDT) WBC 3.5(L) 4.8 - 10.8 K/mcL LAB HEMETOLOGY METHOD 08/13/2024 9:52 AM EDT [facility] RBC 3.50(L) 3.80 - 4.80 M/mcL LAB HEMETOLOGY METHOD [facility]24 [facility] Hemoglobin 10.9(L) 11.5 - 16.0 g/dL LAB HEMETOLOGY METHOD 08/13/2024 9:52 AM [facility] Hematocrit 33.8(L) 35.0 - 47.0 % LAB HEMETOLOGY METHOD 08/13/2024 9:[facility] MCV 95.8 79.0 - 98.0 FL LAB HEMETOLOGY METHOD 08/13/2024 9:52 AM [facility] MCH 30.9 27.0 - 32.0 pcg LAB HEMETOLOGY METHOD 08/13/2024 9:52 AM EDT [facility] MCHC 32.2 32.0 - 37.0 g/dL LAB HEMETOLOGY METHOD 08/13/2024 9:[facility] RDW 14.1 11.0 - 15.0 % LAB HEMETOLOGY METHOD 08/13/2024 9:52 [facility] Platelets 224 130 - 400 K/mcL LAB HEMETOLOGY METHOD 08/13/2024 9:52 [facility] MPV 9.0 7.0 - 11.0 FL LAB HEMETOLOGY METHOD 08/13/2024 9:52 AM EDT [facility] NRBC 0.0 <1.0 % LAB HEMETOLOGY METHOD 08/13/2024 9:52 AM EDT [facility] NRBC Absolute 0.00 <0.10 K/mcL LAB HEMETOLOGY METHOD 08/13/2024 9:52 AM EDT [facility] Blood Venous blood specimen / Unknown Venipuncture / Unknown 08/13/2024 6:05 AM EDT 08/13/2024 9:22 AM EDT us Araceli Maya MD LAB BLOOD ORDERABLES Fin al Result [facility] [address] [place] [address], documented in this encounter Visit Diagnoses Diagnosis Essential (primary) hypertension Unspecified essential hypertension Anemia, unspecified Unspecified osteoarthritis, unspecified site documented in this encounter Care Teams Front Attendant Relationship Specialty Start Date End Date Vivian Massey DO [address], [place] PCP - General Internal Medicine 07/21/17 documented as of this encounter
== END 2024-12-06 08:29 | disposition home or self-care (01) ==
LOC: HO.HOSX 08:28
PROVIDERS: Visit Provider Physician Assistant
DX: S82.842D Displaced bimalleolar fracture of left lower leg, subsequent encounter for closed fracture with routine healing (principal); V89.2XXD Person injured in unspecified motor-vehicle accident, traffic, subsequent encounter
CPT/HCPCS: 73610; 99212

== ENCOUNTER 2024-12-06 10:53 | Outpatient (AMB) | payer MEDICARE, MEDICAID, SELFPAY ==
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
[2024-12-06 11:17] VITALS: BMI 42.8
--- OUTSIDE RECORDS SUMMARY | 2024-12-06 12:36 | XMS_ITS | Encounter Summary ---
Author Organization [facility] Address [address] [place] [address] Care Team Providers Care Hr Operations Advisor Name Role Phone Vivian Massey DO Primary Care Provider +1- [phone] Encounter Details Date Type Department Care Team (Late st Contact Info) Description 10/28/2024 Lab Requisition [facility] - Main Lab 299 [facility] [place] [address] Araceli Maya MD [address] [address] Unspecified osteoarthritis, unspecified site; Essential (primary) hypertension; [...] unspecified documented in this encounter Care Teams Hr Operations Advisor Relationship Specialty Start Date End Date Vivian Massey DO [address] [place], [place] PCP - General Internal Medicine 07/21/17 documented as of this encounter
--- OUTSIDE RECORDS SUMMARY | 2024-12-06 12:36 | XMS_ITS | Encounter Summary ---
Author Organization [facility] Address [address] [place] [address] Care Team Providers Care Hand Embroiderer Name Role Phone Vivian Massey DO Primary Care Provider +1- [phone] Encounter Details Date Type Department Care Team (Late st Contact Info) Description 08/19/2024 Lab Requisition [facility] - Main Lab [address] [facility] [place] [address] Araceli Maya MD [address] [id number] Essential (primary) hypertension; Anemia, unspecified; Unspecified osteoarthritis, [...] Complete blood count (08/20/2024 6:15 AM EDT) [facility] Signature WBC 3.9(L) 4.8 - 10.8 K/mcL LAB HEMETOLOGY METHOD 08/20/2024 8:19 AM [facility] LAB RBC 3.50(L) 3.80 - 4.80 M/mcL LAB HEMETOLOGY METHOD 08/20/2024 8:19 AM [facility] LAB Hemoglobin 10.7(L) 11.5 - 16.0 g/dL LAB HEMETOLOGY METHOD 08/20/2024 8:19 AM [facility] LAB Hematocrit 33.3(L) 35.0 - 47.0 % LAB HEMETOLOGY METHOD 08/20/2024 8:19 AM [facility] LAB MCV 96.5 79.0 - 98.0 FL LAB HEMETOLOGY METHOD 08/20/2024 8:19 AM [facility] LAB MCH 31.0 27.0 - 32.0 pcg LAB HEMETOLOGY METHOD 08/20/2024 8:19 AM [facility] LAB MCHC 32.1 32.0 - 37.0 g/dL LAB HEMETOLOGY METHOD 08/20/2024 8:19 AM [facility] LAB RDW 14.0 11.0 - 15.0 % LAB HEMETOLOGY METHOD 08/20/2024 8:19 AM [facility] LAB Platelets 231 130 - 400 K/mcL LAB HEMETOLOGY METHOD 08/20/2024 8:19 AM [facility] LAB MPV 9.3 7.0 - 11.0 FL LAB HEMETOLOGY METHOD 08/20/2024 8:19 AM [facility] LAB NRBC 0.0 <1.0 % LAB HEMETOLOGY METHOD 08/20/2024 8:19 AM [facility] LAB NRBC Absolute 0.00 <0.10 K/mcL LAB HEMETOLOGY METHOD 08/20/2024 8:19 AM [facility] LAB Blood Venous blood specimen / Unknown Venipuncture / Unknown 08/20/2024 6:15 AM EDT 08/20/2024 8:00 AM EDT us Araceli Maya MD LAB BLOOD ORDERABLES Fin al Result [facility] LAB [address] [place] [address], * (ABNORMAL) Basic metabolic panel (08/20/2024 6:15 AM EDT) Sodium 134 133 - 145 mmol/L LAB CHEMISTRY METHOD 08/20/2024 8:42 AM [facility] LAB Potassium 3.2(L) 3.5 - 5.5 mmol/L LAB CHEMISTRY METHOD 08/20/2024 8:42 AM [facility] LAB Chloride 97 96 - 110 mmol/L LAB CHEMISTRY METHOD 08/20/2024 8:42 AM [facility] LAB CO2 34(H) 21 - 32 mmol/L LAB CHEMISTRY METHOD 08/20/2024 8:42 AM [facility] LAB Anion Gap 3 3 - 11 LAB CHEMISTRY METHOD 08/20/2024 8:42 AM [facility] LAB Glucose 90 70 - 100 mg/dL LAB CHEMISTRY METHOD 08/20/2024 8:42 AM [facility] LAB BUN 15 5 - 25 mg/dL LAB CHEMISTRY METHOD 08/20/2024 8:42 AM [facility] LAB Creatinine 0.76 0.50 - 1.10 mg/dL LAB CHEMISTRY METHOD 08/20/2024 8:42 AM [facility] LAB eGFR 81 >=60 mL/min/1. 73m2 LAB CHEMISTRY METHOD 08/20/2024 8:42 AM EDT [facility] LAB Comment:Calculation based on the Chronic Kidney Disease Epidemiology Collaboration (CKD-EPI) equation refit without adjustment for race. BUN/Creatinine Ratio 19.7 LAB CHEMISTRY METHOD 08/20/2024 8:42 AM EDT [facility] Calcium 8.9 8.5 - 10.5 mg/dL LAB CHEMISTRY METHOD 08/20/2024 8:42 AM EDT [facility] LAB Blood Venous blood specimen / Unknown Venipuncture / Unknown 08/20/2024 6:15 AM EDT 08/20/2024 8:00 AM EDT us Araceli Maya MD LAB BLOOD ORDERABLES Fin al Result [facility] [address] [place] [address], documented in this encounter Visit Diagnoses Diagnosis Essential (primary) hypertension Unspecified essential hypertension Anemia, unspecified Unspecified osteoarthritis, unspecified site documented in this encounter Care Teams Hand Embroiderer Relationship Specialty Start Date End Date Vivian Massey DO [address] [place] [address] PCP - General Internal Medicine 07/21/17 documented as of this encounter
--- OUTSIDE RECORDS SUMMARY | 2024-12-06 12:36 | XMS_ITS | Encounter Summary ---
Author Organization [facility] Address [address] [place] [address] Care Team Providers Care Floor Nurse Name Role Phone Vivian Massey DO Primary Care Provider +1- [phone] Encounter Details Date Type Department Care Team (Late st Contact Info) Description 09/16/[address] [facility] - Main Lab [address] [facility] [place] [address] Araceli Maya MD [address] [id number] Essential (primary) hypertension; Anemia, unspecified; Unspecified osteoarthritis, [...] mmol/L LAB CHEMISTRY METHOD 09/17/2024 9:46 AM [facility] LAB Potassium 3.2(L) 3.5 - 5.5 mmol/L LAB CHEMISTRY METHOD 09/17/2024 9:46 AM [facility] LAB Chloride 97 96 - 110 mmol/L LAB CHEMISTRY METHOD 09/17/2024 9:46 AM [facility] LAB CO2 34(H) 21 - 32 mmol/L LAB CHEMISTRY METHOD 09/17/2024 9:46 AM [facility] LAB Anion Gap 5 3 - 11 LAB CHEMISTRY METHOD 09/17/2024 9:46 AM [facility] LAB Glucose 83 70 - 100 mg/dL LAB CHEMISTRY METHOD 09/17/2024 9:46 AM [facility] LAB BUN 15 5 - 25 mg/dL LAB CHEMISTRY METHOD 09/17/2024 9:46 AM [facility] LAB Creatinine 0.83 0.50 - 1.10 mg/dL LAB CHEMISTRY METHOD 09/17/2024 9:46 AM [facility] LAB eGFR 73 >=60 mL/min/1. 73m2 LAB CHEMISTRY METHOD 09/17/2024 9:46 AM [facility] LAB Comment:Calculation based on the Chronic Kidney Disease Epidemiology Collaboration (CKD-EPI) equation refit without adjustment for race. BUN/Creatinine Ratio 18.1 LAB CHEMISTRY METHOD 09/17/2024 9:46 AM [facility] LAB Calcium 8.8 8.5 - 10.5 mg/dL LAB CHEMISTRY METHOD 09/17/2024 9:46 AM [facility] LAB Blood Venous blood specimen / Unknown Venipuncture / Unknown 09/17/2024 6:04 AM EDT 09/17/2024 8:25 AM EDT us Araceli Maya MD LAB BLOOD ORDERABLES Fin al Result [facility] [address] [place] [address], * (ABNORMAL) Complete blood count (09/17/2024 6:04 AM EDT) WBC 4.4(L) 4.8 - 10.8 K/mcL LAB HEMETOLOGY METHOD 09/17/2024 9:19 AM EDT [facility] RBC 3.40(L) 3.80 - 4.80 M/mcL LAB HEMETOLOGY METHOD [facility]24 [facility] Hemoglobin 10.7(L) 11.5 - 16.0 g/dL LAB HEMETOLOGY METHOD 09/17/2024 9:19 AM [facility] LAB Hematocrit 33.3(L) 35.0 - 47.0 % LAB HEMETOLOGY METHOD 09/17/2024 9[facility] MCV 97.7 79.0 - 98.0 FL LAB HEMETOLOGY METHOD 09/17/2024 9[facility] MCH 31.4 27.0 - 32.0 pcg LAB HEMETOLOGY METHOD 09/17/2024 9:19 AM EDT [facility] MCHC 32.1 32.0 - 37.0 g/dL LAB HEMETOLOGY METHOD 09/17/2024 9[facility] RDW 14.4 11.0 - 15.0 % LAB HEMETOLOGY METHOD 09/17/2024 9[facility] Platelets 225 130 - 400 K/mcL LAB HEMETOLOGY METHOD 09/17/2024 9[facility] MPV 9.4 7.0 - 11.0 FL LAB HEMETOLOGY METHOD 09/17/2024 9:19 AM EDT [facility] NRBC 0.0 <1.0 % LAB HEMETOLOGY METHOD 09/17/2024 9:19 AM EDT [facility] NRBC Absolute 0.00 <0.10 K/mcL LAB HEMETOLOGY METHOD 09/17/2024 9:19 AM EDT [facility] Blood Venous blood specimen / Unknown Venipuncture / Unknown 09/17/2024 6:04 AM EDT 09/17/2024 8:25 AM EDT us Araceli Maya MD LAB BLOOD ORDERABLES Fin al Result [facility] [address] [place] [address], documented in this encounter Visit Diagnoses Diagnosis Essential (primary) hypertension Unspecified essential hypertension Anemia, unspecified Unspecified osteoarthritis, unspecified site documented in this encounter Care Teams Floor Nurse Relationship Specialty Start Date End Date Vivian Massey DO [address] [place] [address] PCP - General Internal Medicine 07/21/17 documented as of this encounter
--- OUTSIDE RECORDS SUMMARY | 2024-12-06 12:36 | XMS_ITS | Encounter Summary ---
Author Organization [facility] Address [address] [place] [address] Care Team Providers Care Wiener Packer Name Role Phone Vivian Massey Primary Care Provider +1- [phone] Encounter Details Date Type Department Care Team ([facility] st Contact Info) Description 09/15/2024 Lab Requisition [facility] - Main Lab [address] [facility] [place] [address] Annalisa Kulkarni PA [address] [place] [address] Altered mental status, unspecified Social [...] Urinalysis with reflex microscopic (09/14/2024 11:00 AM [facility]) Specific [place] Urine 1.028 1.003 - 1.030 LAB URINALYSIS [...] - AUTOMATED METHOD 09/15/2024 10:40 AM EDT [facility] Squamous Epithelial, Urine 58 0 - 60 /LPF LAB URINALYSIS - AUTOMATED METHOD 09/15/2024 10:40 AM EDT [facility] Crystals, Urine MOD CALCIUM OXALATE /LPF LAB URINALYSIS - AUTOMATED METHOD 09/15/2024 10:40 AM EDT [facility] Bacteria, Urine Many(A) Negative /HPF LAB URINALYSIS - AUTOMATED METHOD 09/15/2024 10:40 AM EDT [facility] Hyaline Casts, Urine 0.0 0 - 3 /LPF LAB URINALYSIS - AUTOMATED METHOD 09/15/2024 10:40 AM EDT [facility] Urine Urine specimen obtained by clean catch procedure / Unknown Non-blood Collection / Unknown 09/14/2024 11:00 AM EDT 09/15/2024 8:28 AM EDT us Annalisa KELLY LAB URINE ORDERABLES Final Resul t [facility] [address] [place] [address], * (ABNORMAL) Culture urine (09/14/2024 11:00 AM EDT) Culture, Urine >100,000 CFU/mL Klebsiella pneumoniae ssp pneumoniae(A) RADHAMES 09/18/2024 7:38 AM EDT [facility] Comment: This is an edited result. Previous organism was Gram negative bacilli on 09/16/2024 at 1010 EDT. Culture, Urine 50,000-100,00 0 CFU/mL Aerococcus urinae(A) RADHAMES 09/18/2024 7:38 AM EDT [facility] Comment: Susceptibility testing not routinely [...] MICROBIOLOGY - GENERAL ORDER BABAR Final Result [facility] [address] [place] [address], documented in this encounter Visit Diagnoses Diagnosis Altered mental status, unspecified documented in this encounter Care Teams Wiener Packer Relationship Specialty Start Date End Date Vivian Massey DO [address] [place] [address] PCP - General Internal Medicine 07/21/17 documented as of this encounter
--- OUTSIDE RECORDS SUMMARY | 2024-12-06 12:36 | XMS_ITS | Clinical Summary ---
Author Organization [facility] Address [address] [address] Phone Care Team Providers Care Title Supervisor Name Role Phone Clementine Masseyfer Primary Care Provider [phone] Social History Tobacco Use Types Packs/Day Years [...] topic Medical Devices Not on file Insurance [facility] MEDICARE REPLACEMENT MEDICARE PART A & B [facility] MEDICARE REPLACEMENT MEDICARE PART A & B [facility] MEDICARE REPLACEMENT MEDICARE PART A & B [facility] [address] [place] [address] [facility] MEDICARE REPLACEMENT MEDICARE PART A & B [facility] [address] [place] [address] [facility] MEDICARE REPLACEMENT MEDICARE PART A & B [facility] MEDICARE REPLACEMENT MEDICARE PART A & B [facility] Care Teams Title Supervisor Relationship Specialty Start Date End Date Vivian Massey DO [address] [place] [address] PCP - General Family Medicine 01/09/23 Additional Source Comments The information contained in this document represents components of the legal health record. It is not the complete legal health record.[facility]
--- OUTSIDE RECORDS SUMMARY | 2024-12-06 12:36 | XMS_ITS | Encounter Summary ---
Author Organization [facility] Address [address] [place] [address] Care Team Providers Care Metal Ceiling Builder Name Role Phone Vivian Massey DO Primary Care Provider [phone]- [phone] Encounter Details Date Type Department Care Team (Late st Contact Info) Description 08/03/2024 Lab Requisition [facility] - Main Lab [address] [facility] [place] [address] Araceli Maya MD [address] [id number] Essential (primary) hypertension; Anemia, unspecified; Unspecified osteoarthritis, [...] mmol/L LAB CHEMISTRY METHOD 08/06/2024 10:58 AM [facility] Potassium 3.6 3.5 - 5.5 mmol/L LAB CHEMISTRY METHOD 08/06/2024 10:58 AM [facility] Chloride 95(L) 96 - 110 mmol/L LAB CHEMISTRY METHOD 08/06/2024 10:58 AM [facility] CO2 31 21 - 32 mmol/L LAB CHEMISTRY METHOD 08/06/2024 10:58 AM [facility] Anion Gap 5 3 - 11 LAB CHEMISTRY METHOD 08/06/2024 10:58 AM [facility] Glucose 75 70 - 100 mg/dL LAB CHEMISTRY METHOD 08/06/2024 10:58 AM [facility] BUN 11 5 - 25 mg/dL LAB CHEMISTRY METHOD 08/06/2024 10:58 AM [facility] Creatinine 0.76 0.50 - 1.10 mg/dL LAB CHEMISTRY METHOD 08/06/2024 10:58 AM [facility] eGFR 81 >=60 mL/min/1. 73m2 LAB CHEMISTRY METHOD 08/06/2024 10:58 AM [facility] Comment:Calculation based on the Chronic Kidney Disease Epidemiology Collaboration (CKD-EPI) equation refit without adjustment for race. BUN/Creatinine Ratio 14.5 LAB CHEMISTRY METHOD 08/06/2024 10:58 AM [facility] Calcium 8.6 8.5 - 10.5 mg/dL LAB CHEMISTRY METHOD 08/06/2024 10:58 AM [facility] Blood Venous blood specimen / Unknown Venipuncture / Unknown 08/06/2024 6:57 AM EDT 08/06/2024 10:58 AM EDT us Araceli Maya MD LAB BLOOD ORDERABLES Fin al Result [facility] [address] [place] [address], * (ABNORMAL) Complete blood count (08/06/2024 6:57 AM EDT) WBC 3.3(L) 4.8 - 10.8 K/mcL LAB HEMETOLOGY METHOD 08/06/2024 11:00 AM EDT [facility] RBC 3.70(L) 3.80 - 4.80 M/mcL LAB HEMETOLOGY METHOD 08/06/2024 11:00 AM [facility] Hemoglobin 11.4(L) 11.5 - 16.0 g/dL LAB HEMETOLOGY METHOD 08/06/2024 11:00 AM [facility] Hematocrit 34.9(L) 35.0 - 47.0 % LAB HEMETOLOGY METHOD 08/06/2024 11:00 AM [facility] MCV 95.6 79.0 - 98.0 FL LAB HEMETOLOGY METHOD [facility] MCH 31.2 27.0 - 32.0 pcg LAB HEMETOLOGY METHOD [facility]/06[facility]24 [facility] MCHC 32.7 32.0 - 37.0 g/dL LAB HEMETOLOGY METHOD 08/06/2024 11:00 AM [facility] RDW 13.6 11.0 - 15.0 % LAB HEMETOLOGY METHOD 08/06/2024 11:00 AM [facility] Platelets 262 130 - 400 K/mcL LAB HEMETOLOGY METHOD 08/06/2024 11:00 AM [facility] MPV 9.1 7.0 - 11.0 FL LAB HEMETOLOGY METHOD 08/06/2024 11:00 AM EDT [facility] NRBC 0.0 <1.0 % LAB HEMETOLOGY METHOD 08/06/2024 11:00 AM EDT [facility] NRBC Absolute 0.00 <0.10 K/mcL LAB HEMETOLOGY METHOD 08/06/2024 11:00 AM EDT [facility] Blood Venous blood specimen / Unknown Venipuncture / Unknown 08/06/2024 6:57 AM EDT 08/06/2024 10:59 AM EDT us Araceli Maya MD LAB BLOOD ORDERABLES Fin al Result [facility] [address] [place] [address], documented in this encounter Visit Diagnoses Diagnosis Essential (primary) hypertension Unspecified essential hypertension Anemia, unspecified Unspecified osteoarthritis, unspecified site documented in this encounter Care Teams Metal Ceiling Builder Relationship Specialty Start Date End Date Vivian Massey DO [address] [place] [address] PCP - General Internal Medicine 07/21/17 documented as of this encounter
--- OUTSIDE RECORDS SUMMARY | 2024-12-06 12:36 | XMS_ITS | Encounter Summary ---
Author Organization [facility] Address [address] [place] [address] Care Team Providers Care Glove Tagger Name Role Phone Vivian Massey DO Primary Care Provider [phone]- [phone] Encounter Details Date Type Department Care Team (Late st Contact Info) Description 08/12/2024 Lab Requisition [facility] - Main Lab [address] [facility] [place] [address] Araceli Maya MD [address] [phone] Essential (primary) hypertension; Anemia, unspecified; Unspecified osteoarthritis, [...] 10:09 AM [facility] Blood Venous blood specimen / Unknown Venipuncture / Unknown 08/13/2024 6:05 AM EDT 08/13/2024 9:23 AM EDT Araceli Maya MD LAB BLOOD ORDERABLES Fin al Result [facility] [address] [place] [address], * (ABNORMAL) Complete blood count (08/13/2024 6:05 AM EDT) WBC 3.5(L) 4.8 - 10.8 K/mcL LAB HEMETOLOGY METHOD 08/13/2024 9:52 AM EDT [facility] RBC 3.50(L) 3.80 - 4.80 M/mcL LAB HEMETOLOGY METHOD [facility]24 [facility] Hemoglobin 10.9(L) 11.5 - 16.0 g/dL LAB HEMETOLOGY METHOD 08/13/2024 9:52 AM [facility] Hematocrit 33.8(L) 35.0 - 47.0 % LAB HEMETOLOGY METHOD 08/13/2024 9[facility] MCV 95.8 79.0 - 98.0 FL LAB HEMETOLOGY METHOD 08/13/2024 9:52 AM [facility] MCH 30.9 27.0 - 32.0 pcg LAB HEMETOLOGY METHOD 08/13/2024 9:52 AM EDT [facility] MCHC 32.2 32.0 - 37.0 g/dL LAB HEMETOLOGY METHOD 08/13/2024 9:52 [facility] RDW 14.1 11.0 - 15.0 % LAB HEMETOLOGY METHOD 08/13/2024 9:52 [facility] Platelets 224 130 - 400 K/mcL LAB HEMETOLOGY METHOD 08/13/2024 9:52 [facility] MPV 9.0 7.0 - 11.0 FL LAB HEMETOLOGY METHOD 08/13/2024 9:52 AM EDT [facility] NRBC 0.0 <1.0 % LAB HEMETOLOGY METHOD 08/13/2024 9:52 AM EDT [facility] NRBC Absolute 0.00 <0.10 K/mcL LAB HEMETOLOGY METHOD 08/13/2024 9:52 AM EDT [facility] Blood Venous blood specimen / Unknown Venipuncture / Unknown 08/13/2024 6:05 AM EDT 08/13/2024 9:22 AM EDT us Araceli Maya MD LAB BLOOD ORDERABLES Fin al Result [facility] [address] [place] [address], documented in this encounter Visit Diagnoses Diagnosis Essential (primary) hypertension Unspecified essential hypertension Anemia, unspecified Unspecified osteoarthritis, unspecified site documented in this encounter Care Teams Glove Tagger Relationship Specialty Start Date End Date Vivian Massey DO [address] [place], [place] PCP - General Internal Medicine 07/21/17 documented as of this encounter
--- OUTSIDE RECORDS SUMMARY | 2024-12-06 12:36 | XMS_ITS | Encounter Summary ---
Author Organization [facility] Address [address] [place] [address] Care Team Providers Care Envelope Folding Machine Operator Name Role Phone Vivian Massey Primary Care Provider +1- [phone] Encounter Details Date Type Department Care Team ([facility] st Contact Info) Description 09/18/2024 Lab Requisition [facility] - Main Lab [address] [place] [address] Araceli Maya MD [address] [address] Hypokalemia Social History Tobacco Use Types Packs/Day [...] LAB CHEMISTRY METHOD 09/18/2024 8:19 AM EDT [facility] Potassium 3.6 3.5 - 5.5 mmol/L LAB CHEMISTRY METHOD 09/18/2024 8:[address] [facility] Chloride 97 96 - 110 mmol/L LAB CHEMISTRY METHOD 09/18/2024 8:[address] [facility] CO2 31 21 - 32 mmol/L LAB CHEMISTRY METHOD 09/18/2024 8:[address] [facility] Anion Gap 6 3 - 11 LAB CHEMISTRY METHOD 09/18/2024 8:[address] [facility] Glucose 82 70 - 100 mg/dL LAB CHEMISTRY METHOD 09/18/2024 8:[address] [facility] BUN 11 5 - 25 mg/dL LAB CHEMISTRY METHOD 09/18/2024 8:[address] [facility] Creatinine 0.69 0.50 - 1.10 mg/dL LAB CHEMISTRY METHOD 09/18/2024 8:[address] [facility] eGFR 90 >=60 mL/min/1. 73m2 LAB CHEMISTRY METHOD 09/18/2024 8:[address] [facility] Comment:Calculation based on the Chronic Kidney Disease Epidemiology Collaboration (CKD-EPI) equation refit without adjustment for race. BUN/Creatinine Ratio 15.9 LAB CHEMISTRY METHOD 09/18/2024 8:[address] [facility] Calcium 9.0 8.5 - 10.5 mg/dL LAB CHEMISTRY METHOD 09/18/2024 8:[address] [facility] Blood Venous blood specimen / Unknown Venipuncture / Unknown 09/18/2024 5:51 AM EDT 09/18/2024 6:44 AM EDT us Araceli Maya MD LAB BLOOD ORDERABLES Fin al Result [facility] [address] [place] [address], documented in this encounter Visit Diagnoses Diagnosis Hypokalemia Hypopotassemia documented in this encounter Care Teams Envelope Folding Machine Operator Relationship Specialty Start Date End Date Vivian Massey DO [address] [place], [place] PCP - General Internal Medicine 07/21/17 documented as of this encounter
--- OUTSIDE RECORDS SUMMARY | 2024-12-06 12:37 | XMS_ITS | Encounter Summary ---
Author Organization [facility] Address [address] [place] [address] Care Team Providers Care Ad Setter Name Role Phone Vivian Massey DO Primary Care Provider +1- [phone] Encounter Details Date Type Department Care Team (Late st Contact Info) Description 09/30/2024 Lab Requisition [facility] - Main Lab 299 [facility] [place] [address] Araceli Maya MD [address] [phone] Essential (primary) hypertension; Anemia, unspecified; Unspecified osteoarthritis, [...] Complete blood count (10/01/2024 5:36 AM EDT) [facility] WBC 4.2(L) 4.8 - 10.8 K/mcL LAB HEMETOLOGY METHOD 10/01/2024 7:51 AM [facility] LAB RBC 3.40(L) 3.80 - 4.80 M/mcL LAB HEMETOLOGY METHOD 10/01/2024 7:51 AM [facility] LAB Hemoglobin 10.8(L) 11.5 - 16.0 g/dL LAB HEMETOLOGY METHOD 10/01/2024 7:51 AM [facility] LAB Hematocrit 33.5(L) 35.0 - 47.0 % LAB HEMETOLOGY METHOD 10/01/2024 7:51 AM [facility] LAB MCV 97.7 79.0 - 98.0 FL LAB HEMETOLOGY METHOD 10/01/2024 7:51 AM [facility] LAB MCH 31.5 27.0 - 32.0 pcg LAB HEMETOLOGY METHOD 10/01/2024 7:51 AM [facility] LAB MCHC 32.2 32.0 - 37.0 g/dL LAB HEMETOLOGY METHOD 10/01/2024 7:51 AM [facility] LAB RDW 14.5 11.0 - 15.0 % LAB HEMETOLOGY METHOD 10/01/2024 7:51 AM [facility] LAB Platelets 243 130 - 400 K/mcL LAB HEMETOLOGY METHOD 10/01/2024 7:51 AM [facility] LAB MPV 9.4 7.0 - 11.0 FL LAB HEMETOLOGY METHOD 10/01/2024 7:51 AM [facility] LAB NRBC 0.0 <1.0 % LAB HEMETOLOGY METHOD 10/01/2024 7:51 AM [facility] LAB NRBC Absolute 0.00 <0.10 K/mcL LAB HEMETOLOGY METHOD 10/01/2024 7:51 AM [facility] LAB Blood Venous blood specimen / Unknown Venipuncture / Unknown 10/01/2024 5:36 AM EDT 10/01/2024 6:57 AM EDT us Araceli Maya MD LAB BLOOD ORDERABLES Fin al Result [facility] LAB [address] [place] [address], [place] [phone] * (ABNORMAL) Basic metabolic panel (10/01/2024 5:36 AM EDT) Sodium 138 133 - 145 mmol/L LAB CHEMISTRY METHOD 10/01/2024 8:12 AM [facility] LAB Potassium 3.3(L) 3.5 - 5.5 mmol/L LAB CHEMISTRY METHOD 10/01/2024 8:12 AM [facility] LAB Chloride 100 96 - 110 mmol/L LAB CHEMISTRY METHOD 10/01/2024 8:12 AM [facility] LAB CO2 32 21 - 32 mmol/L LAB CHEMISTRY METHOD 10/01/2024 8:12 AM [facility] LAB Anion Gap 6 3 - 11 LAB CHEMISTRY METHOD 10/01/2024 8:12 AM [facility] LAB Glucose 82 70 - 100 mg/dL LAB CHEMISTRY METHOD 10/01/2024 8:12 AM [facility] LAB BUN 14 5 - 25 mg/dL LAB CHEMISTRY METHOD 10/01/2024 8:12 AM [facility] LAB Creatinine 0.81 0.50 - 1.10 mg/dL LAB CHEMISTRY METHOD 10/01/2024 8:12 AM [facility] LAB eGFR 75 >=60 mL/min/1. [...] Result [facility] LAB [address] [place] [address], documented in this encounter Visit Diagnoses Diagnosis Essential (primary) hypertension Unspecified essential hypertension Anemia, unspecified Unspecified osteoarthritis, unspecified site documented in this encounter Care Teams Ad Setter Relationship Specialty Start Date End Date Vivian Massey DO [address] [place] [address] PCP - General Internal Medicine 07/21/17 documented as of this encounter
--- OUTSIDE RECORDS SUMMARY | 2024-12-06 12:37 | XMS_ITS | Encounter Summary ---
Author Organization [facility] [address] Address [address] [place] [address] Care Team Providers Care Software Recruiter Name Role Phone Vivian Massey DO Primary Care Provider +1- [phone] Encounter Details Date Type Department Care Team (Late st Contact Info) Description 10/21/2024 Lab Requisition [facility] - Main Lab 299 [facility] [place] [address] Araceli Maya MD [address] [id number] Essential (primary) hypertension; Anemia, unspecified; Unspecified osteoarthritis, [...] Complete blood count (10/22/2024 6:15 AM EDT) [facility] Signature WBC 3.6(L) 4.8 - 10.8 K/mcL LAB HEMETOLOGY METHOD 10/22/2024 9:10 AM [facility] LAB RBC 3.40(L) 3.80 - 4.80 M/mcL LAB HEMETOLOGY METHOD 10/22/2024 9:10 AM [facility] LAB Hemoglobin 10.6(L) 11.5 - 16.0 g/dL LAB HEMETOLOGY METHOD 10/22/2024 9:10 AM [facility] LAB Hematocrit 32.5(L) 35.0 - 47.0 % LAB HEMETOLOGY METHOD 10/22/2024 9:10 AM [facility] LAB MCV 95.0 79.0 - 98.0 FL LAB HEMETOLOGY METHOD 10/22/2024 9:10 AM [facility] LAB MCH 31.0 27.0 - 32.0 pcg LAB HEMETOLOGY METHOD 10/22/2024 9:10 AM [facility] LAB MCHC 32.6 32.0 - 37.0 g/dL LAB HEMETOLOGY METHOD 10/22/2024 9:10 AM [facility] LAB RDW 14.6 11.0 - 15.0 % LAB HEMETOLOGY METHOD 10/22/2024 9:10 AM [facility] LAB Platelets 254 130 - 400 K/mcL LAB HEMETOLOGY METHOD 10/22/2024 9:10 AM [facility] LAB MPV 8.9 7.0 - 11.0 FL LAB HEMETOLOGY METHOD 10/22/2024 9:10 AM [facility] LAB NRBC 0.0 <1.0 % LAB HEMETOLOGY METHOD 10/22/2024 9:10 AM [facility] LAB NRBC Absolute 0.00 <0.10 K/mcL LAB HEMETOLOGY METHOD 10/22/2024 9:10 AM [facility] LAB Blood Venous blood specimen / Unknown Venipuncture / Unknown 10/22/2024 6:15 AM EDT 10/22/2024 8:58 AM EDT us Araceli Maya MD LAB BLOOD ORDERABLES Fin al Result [facility] LAB [address] [place] [address], * (ABNORMAL) Basic metabolic panel (10/22/2024 6:15 AM EDT) Sodium 137 133 - 145 mmol/L LAB CHEMISTRY METHOD 10/22/2024 9:29 AM [facility] LAB Potassium 3.6 3.5 - 5.5 mmol/L LAB CHEMISTRY METHOD 10/22/2024 9:29 AM [facility] LAB Chloride 101 96 - 110 mmol/L LAB CHEMISTRY METHOD 10/22/2024 9:29 AM [facility] LAB CO2 34(H) 21 - 32 mmol/L LAB CHEMISTRY METHOD 10/22/2024 9:29 AM [facility] LAB Anion Gap 2(L) 3 - 11 LAB CHEMISTRY METHOD 10/22/2024 9:29 AM [facility] LAB Glucose 74 70 - 100 mg/dL LAB CHEMISTRY METHOD 10/22/2024 9:29 AM [facility] BUN 14 5 - 25 mg/dL LAB CHEMISTRY METHOD 10/22/2024 9:29 AM [facility] LAB Creatinine 0.89 0.50 - 1.10 mg/dL LAB CHEMISTRY METHOD 10/22/2024 9:29 AM [facility] LAB eGFR 67 >=60 mL/min/1. 73m2 LAB CHEMISTRY METHOD 10/22/2024 9:29 AM EDT [facility] LAB Comment:Calculation based on the Chronic Kidney Disease Epidemiology Collaboration (CKD-EPI) equation refit without adjustment for race. BUN/Creatinine Ratio 15.7 LAB CHEMISTRY METHOD 10/22/2024 9:29 AM EDT [facility] LAB Calcium 8.5 8.5 - 10.5 mg/dL LAB CHEMISTRY METHOD 10/22/2024 9:29 AM EDT [facility] LAB Blood Venous blood specimen / Unknown Venipuncture / Unknown 10/22/2024 6:15 AM EDT 10/22/2024 8:58 AM EDT us Araceli Maya MD LAB BLOOD ORDERABLES Fin al Result [facility] LAB [address] [place] [address], documented in this encounter Visit Diagnoses Diagnosis Essential (primary) hypertension Unspecified essential hypertension Anemia, unspecified Unspecified osteoarthritis, unspecified site documented in this encounter Care Teams Software Recruiter Relationship Specialty Start Date End Date Vivian Massey DO [address] [place] [address] PCP - General Internal Medicine 07/21/17 documented as of this encounter
--- OUTSIDE RECORDS SUMMARY | 2024-12-06 12:37 | XMS_ITS | Encounter Summary ---
Author Organization [facility] Address [address] [place] [address] Care Team Providers Care Milling Machine Operator Name Role Phone Vivian Massey Primary Care Provider +1- [phone] Encounter Details Date Type Department Care Team ([facility] st Contact Info) Description 10/02/2024 Lab Requisition [facility] - Main Lab [address] [place] [address] Araceli Maya MD [address] [address] Hypokalemia Social History Tobacco Use Types Packs/Day [...] LAB CHEMISTRY METHOD 10/03/2024 8:28 AM EDT [facility] Potassium 3.8 3.5 - 5.5 mmol/L LAB CHEMISTRY METHOD 10/03/2024 8:28 AM [facility] LAB Chloride 101 96 - 110 mmol/L LAB CHEMISTRY METHOD 10/03/2024 8:28 AM [facility] LAB CO2 34(H) 21 - 32 mmol/L LAB CHEMISTRY METHOD 10/03/2024 8:28 AM [facility] LAB Anion Gap 3 3 - 11 LAB CHEMISTRY METHOD 10/03/2024 8:28 AM [facility] LAB Glucose 79 70 - 100 mg/dL LAB CHEMISTRY METHOD 10/03/2024 8:28 AM [facility] LAB BUN 15 5 - 25 mg/dL LAB CHEMISTRY METHOD 10/03/2024 8:28 AM [facility] LAB Creatinine 0.88 0.50 - 1.10 mg/dL LAB CHEMISTRY METHOD 10/03/2024 8:28 AM [facility] LAB eGFR 68 >=60 mL/min/1. 73m2 LAB CHEMISTRY METHOD 10/03/2024 8:28 AM [facility] LAB Comment:Calculation based on the Chronic Kidney Disease Epidemiology Collaboration (CKD-EPI) equation refit without adjustment for race. BUN/Creatinine Ratio 17.0 LAB CHEMISTRY METHOD 10/03/2024 8:28 AM [facility] LAB Calcium 9.1 8.5 - 10.5 mg/dL LAB CHEMISTRY METHOD 10/03/2024 8:28 AM [facility] LAB Blood Venous blood specimen / Unknown Venipuncture / Unknown 10/03/2024 5:51 AM EDT 10/03/2024 7:39 AM EDT us Araceli Maya MD LAB BLOOD ORDERABLES Fin al Result [facility] LAB [address] [place] [address], documented in this encounter Visit Diagnoses Diagnosis Hypokalemia Hypopotassemia documented in this encounter Care Teams Milling Machine Operator Relationship Specialty Start Date End Date Vviian Massey DO [address] [place] [address] PCP - General Internal Medicine 07/21/17 documented as of this encounter
--- OUTSIDE RECORDS SUMMARY | 2024-12-06 12:37 | XMS_ITS | Encounter Summary ---
Author Organization [facility] Address [address] [place] [address] Care Team Providers Care Circular Distributor Name Role Phone Vivian Massey DO Primary Care Provider +1- [phone] Encounter Details Date Type Department Care Team ([facility] st Contact Info) Description 09/03/[address] [facility] - Main Lab 299 [facility] [place] [address] Araceli Maya MD [address] [phone] Essential (primary) hypertension; Anemia, unspecified; Unspecified osteoarthritis, [...] mmol/L LAB CHEMISTRY METHOD 09/03/2024 11:20 AM [facility] LAB Potassium 3.2(L) 3.5 - 5.5 mmol/L LAB CHEMISTRY METHOD 09/03/2024 11:20 AM [facility] LAB Chloride 100 96 - 110 mmol/L LAB CHEMISTRY METHOD 09/03/2024 11:20 AM [facility] LAB CO2 33(H) 21 - 32 mmol/L LAB CHEMISTRY METHOD 09/03/2024 11:20 AM [facility] LAB Anion Gap 8 3 - 11 LAB CHEMISTRY METHOD 09/03/2024 11:20 AM [facility] LAB Glucose 84 70 - 100 mg/dL LAB CHEMISTRY METHOD 09/03/2024 11:20 AM [facility] LAB BUN 15 5 - 25 mg/dL LAB CHEMISTRY METHOD 09/03/2024 11:20 AM [facility] LAB Creatinine 0.89 0.50 - 1.10 mg/dL LAB CHEMISTRY METHOD 09/03/2024 11:20 AM [facility] LAB eGFR 67 >=60 mL/min/1. 73m2 LAB CHEMISTRY METHOD 09/03/2024 11:20 AM [facility] LAB Comment:Calculation based on the Chronic Kidney Disease Epidemiology Collaboration (CKD-EPI) equation refit without adjustment for race. BUN/Creatinine Ratio 16.9 LAB CHEMISTRY METHOD 09/03/2024 11:20 AM [facility] LAB Calcium 8.8 8.5 - 10.5 mg/dL LAB CHEMISTRY METHOD 09/03/2024 11:20 AM [facility] LAB Blood Venous blood specimen / Unknown Venipuncture / Unknown 09/03/2024 6:42 AM EDT 09/03/2024 9:10 AM EDT us Araceli Maya MD LAB BLOOD ORDERABLES Fin al Result [facility] LAB [address] [place] [address], * (ABNORMAL) Complete blood count (09/03/2024 6:42 AM EDT) WBC 4.7(L) 4.8 - 10.8 K/mcL LAB HEMETOLOGY METHOD 09/03/2024 10:02 AM EDT [facility] LAB RBC 3.50(L) 3.80 - 4.80 M/mcL LAB HEMETOLOGY METHOD 09/03/2024 10:02 AM [facility] LAB Hemoglobin 10.8(L) 11.5 - 16.0 g/dL LAB HEMETOLOGY METHOD 09/03/2024 10:02 AM [facility] LAB Hematocrit 34.4(L) 35.0 - 47.0 % LAB HEMETOLOGY METHOD 09/03/2024 10:02 AM [facility] LAB MCV 97.2 79.0 - 98.0 FL LAB HEMETOLOGY METHOD 09/03/2024 10:02 AM [facility] LAB MCH 30.5 27.0 - 32.0 pcg LAB HEMETOLOGY METHOD 09/03/2024 10:02 AM [facility] LAB MCHC 31.4(L) 32.0 - 37.0 g/dL LAB HEMETOLOGY METHOD 09/03/2024 10:02 AM [facility] LAB RDW 13.9 11.0 - 15.0 % LAB HEMETOLOGY METHOD 09/03/2024 10:02 AM [facility] LAB Platelets 253 130 - 400 K/mcL LAB HEMETOLOGY METHOD 09/03/2024 10:02 AM [facility] LAB MPV 9.1 7.0 - 11.0 FL LAB HEMETOLOGY METHOD 09/03/2024 10:02 AM EDT [facility] LAB NRBC 0.0 <1.0 % LAB HEMETOLOGY METHOD 09/03/2024 10:02 AM EDT [facility] LAB NRBC Absolute 0.00 <0.10 K/mcL LAB HEMETOLOGY METHOD 09/03/2024 10:02 AM EDT [facility] LAB Blood Venous blood specimen / Unknown Venipuncture / Unknown 09/03/2024 6:42 AM EDT 09/03/2024 9:10 AM EDT us Araceli Maya MD LAB BLOOD ORDERABLES Fin al Result [facility] LAB [address] [place] [address], documented in this encounter Visit Diagnoses Diagnosis Essential (primary) hypertension Unspecified essential hypertension Anemia, unspecified Unspecified osteoarthritis, unspecified site documented in this encounter Care Teams Circular Distributor Relationship Specialty Start Date End Date Vivian Massey DO [address] [place] [address] PCP - General Internal Medicine 07/21/17 documented as of this encounter
--- OUTSIDE RECORDS SUMMARY | 2024-12-06 12:37 | XMS_ITS | Clinical Summary ---
Author Organization [facility] Address [address] [place] [address] Phone Care Team Providers Care Arboriculturist Name Role Phone Vivian Massey Primary Care Provider +1- [phone] Medications Mounjaro 5 mg/0.5 mL injection INJECT ONE PEN (=5MG) SUBCUTANEOUSLY ONCE A WEEK DIRECTED 2 mL 11/09/19 25 Active tirzepatide (Mounjaro) 5 mg/0.5 mL injection Inject 0.5 mL (5 mg total) under the skin every 7 (seven) days. 2 mL 10/08/19 25 2024 Discontinued Encounters Date Type Department Care Team Description 10/28/2024 Lab Requisition [facility] Lab [address] [place] [phone] Araceli Maya MD Unspecified osteoarthritis, unspecified site; Essential (primary) hypertension; Anemia, unspecified 10/21/2024 Lab Requisition [facility] Lab [address] [place] [phone] Araceli Maya MD Essential (primary) hypertension; Anemia, unspecified; Unspecified osteoarthritis, unspecified site 10/14/2024 Lab Requisition [facility] Lab [address] [place] [phone] Araceli Maya MD Essential (primary) hypertension; Anemia, unspecified; Unspecified osteoarthritis, unspecified site 10/07/2024 Lab Requisition [facility] Lab [address] [place] [phone] Araceli Maya MD Essential (primary) hypertension; Anemia, unspecified; Unspecified osteoarthritis, unspecified site 10/07/2024 Lab Requisition [facility] Lab [address] [place] [address] Araceli Maya MD Urinary tract infection, site not specified 10/02/2024 Lab Requisition [facility] Lab [address] [place] [address] Araceli Maya MD Hypokalemia 09/30/2024 Lab Requisition [facility] Lab [address] [place] [address] Araceli Maya MD Essential (primary) hypertension; Anemia, unspecified; Unspecified osteoarthritis, unspecified site 09/25/2024 Lab Requisition [facility] Lab [address] [place] [phone] Araceli Maya MD Hypokalemia 09/23/2024 Lab Requisition [facility] Lab [address] [place] [address] Araceli Maya MD Essential (primary) hypertension; Anemia, unspecified; Unspecified osteoarthritis, unspecified site 09/18/2024 Lab Requisition [facility] Lab [address] [place] [phone] Araceli Maya MD Hypokalemia 09/16/2024 Lab Requisition [facility] Lab [address] [place] [address] Araceli Maya MD Essential (primary) hypertension; Anemia, unspecified; Unspecified osteoarthritis, unspecified site 09/15/2024 Lab Requisition [facility] Lab [address] [place] [phone] Annalisa Kulkarni PA Altered mental status, unspecified 09/09/[address] [facility] - Main Lab 299 [facility] [place] [address] Araceli Maya MD Essential (primary) hypertension; Anemia, unspecified; Unspecified osteoarthritis, unspecified site 09/05/[address] [facility] - Main Lab [address] [place] [address] Araceli Maya MD Hypokalemia from Last 3 Months Immunizations Name Administration Dates Next Due Moderna SARS-CoV-2 COVID-19, mRNA, LNP-S, preservative free 07/13/2020,06/15/2020 Surgical History Surgery Date Site/Laterality Comments BREAST REDUCTION 1997 PROCEDURE: [facility] BREAST REDUCTION SECTION 1982 PROCEDURE: HISTORICAL BLADDER SUSPENSION PROCEDURE: HISTORICAL BLADDER SUSPENSION; COMMENT: Marcus Corin operation GASTRIC BYPASS 2005 PROCEDURE: [facility] GASTRIC RSTCV W/BYP W/SM INT RCNSTJ LIMIT [...] series) 2023 Depression Screening 03/13/2024 COVID-19 Vaccine (2024- season) 2024 07/13/2020, 06/15/2020 Influenza Vaccine (#1) [...] PANEL Routine 09/06/2024 5:51 AM EDT Hypokalemia from Last 3 Months Results * (ABNORMAL) Complete blood count (10/22/2024 6:15 AM EDT) Only the most recent of7 resultswithin the time period is included. WBC [...] pcg LAB HEMETOLOGY METHOD 10/22/2024 9:10 AM EDT [facility] LAB MCHC 32.6 32.0 - 37.0 g/dL LAB HEMETOLOGY METHOD 10/22/2024 9:10 AM EDT [facility] RDW 14.6 11.0 - 15.0 % LAB HEMETOLOGY METHOD 10/22/2024 9:10 AM EDT [facility] LAB Platelets 254 130 - 400 K/mcL LAB HEMETOLOGY METHOD 10/22/2024 9:10 AM EDT [facility] MPV 8.9 7.0 - 11.0 FL LAB HEMETOLOGY METHOD 10/22/2024 9:10 AM EDT [facility] LAB NRBC 0.0 <1.0 % LAB HEMETOLOGY METHOD 10/22/2024 9:10 AM EDT [facility] NRBC Absolute 0.00 <0.10 K/mcL LAB HEMETOLOGY METHOD 10/22/2024 9:10 AM EDT [facility] LAB Blood Venous blood specimen / Unknown Venipuncture / Unknown 10/22/2024 6:15 AM EDT 10/22/2024 8:58 AM EDT us Araceli Maya MD LAB BLOOD ORDERABLES Fin al Result [facility] [address] [place] [address], * (ABNORMAL) Basic metabolic panel (10/22/2024 6:15 AM EDT) Only the most recent of11 resultswithin the time period is included. Sodium 137 133 - 145 mmol/L LAB CHEMISTRY METHOD 10/22/2024 9:29 AM EDT [facility] Potassium 3.6 3.5 - [...] 9:29 AM [facility] LAB eGFR 67 >=60 mL/min/1. 73m2 LAB CHEMISTRY METHOD 10/22/2024 9:29 AM [facility] LAB Comment:Calculation based on the Chronic Kidney Disease Epidemiology Collaboration (CKD-EPI) equation refit without adjustment for race. BUN/Creatinine Ratio 15.7 LAB CHEMISTRY METHOD 10/22/2024 9:29 AM [facility] LAB Calcium 8.5 8.5 - 10.5 mg/dL LAB CHEMISTRY METHOD 10/22/2024 9:29 AM [facility] LAB Blood Venous blood specimen / Unknown Venipuncture / Unknown 10/22/2024 6:15 AM EDT 10/22/2024 8:58 AM EDT us Araceli Maya MD LAB BLOOD ORDERABLES Fin al Result [facility] [address] [place] [address], * (ABNORMAL) Urinalysis with reflex microscopic (10/06/2024 8:10 AM EDT) Only the most recent of2 resultswithin the time period is included. Specific [place] Urine 1.022 1.003 - 1.030 LAB URINALYSIS - AUTOMATED METHOD 10/07/2024 12:13 PM [facility] pH, Urine 7.0 5.0 - 8.0 pH LAB URINALYSIS - AUTOMATED METHOD 10/07/2024 12:13 PM [facility] Leukocytes, Urine Large(A) Negative LAB URINALYSIS - AUTOMATED METHOD 10/07/2024 12:13 PM [facility] Nitrite, Urine Positive(A) Negative LAB URINALYSIS - AUTOMATED METHOD 10/07/2024 12:13 PM [facility] Protein, Urine 100(A) [...] - AUTOMATED METHOD 10/07/2024 12:13 PM EDT [facility] Squamous Epithelial, Urine 70(H) 0 - 60 /LPF LAB URINALYSIS - AUTOMATED METHOD 10/07/2024 12:13 PM EDT [facility] Non-Squamous Epithelial, Urine 2-5 TRANSITIONAL EPI /LPF LAB URINALYSIS - AUTOMATED METHOD 10/07/2024 12:13 PM EDT [facility] Crystals, Urine MOD CALCIUM OXALATE /LPF LAB URINALYSIS - AUTOMATED METHOD 10/07/2024 12:13 PM EDT [facility] Bacteria, Urine Moderate(A) Negative /HPF LAB URINALYSIS - AUTOMATED METHOD 10/07/2024 12:13 PM [facility] Hyaline Casts, Urine 1.6 0 - 3 /LPF LAB URINALYSIS - AUTOMATED METHOD 10/07/2024 12:13 PM [facility] Urine Urine specimen obtained by clean catch procedure / Unknown Non-blood Collection / Unknown 10/06/2024 8:10 AM EDT 10/07/2024 11:17 AM EDT Araecli Maya MD LAB URINE ORDERABLES Fin al Result [facility] [address] [place] [address], * (ABNORMAL) Culture urine (10/06/2024 8:10 AM EDT) Only the most recent of2 resultswithin the time period is included. Culture, Urine >=100,000 CFU/mL Escherichia coli(A) RADHAMES 10/10/2024 7:49 AM EDT [facility] Comment: This is an edited result. Previous organism was Gram negative bacilli on 10/08/2024 at 0843 EDT. Culture, Urine 10,000-49,000 CFU/mL Morganella morganii ssp morganii(A) RADHAMES 10/10/2024 7:49 AM EDT [facility] Comment: The organism value [...] morganii Trimethoprim/Sulfamethoxazo le RADHAMES <=20 ug/ml: Susceptible us Araceli Maya MD LAB MICROBIOLOGY - GENER AL ORDERABLES Final Result [facility] [address] [place] [address], [place] [phone] from Last 3 Months Insurance MEDICAID - [place] [employer] MEDICARE Care Teams Arboriculturist Relationship Specialty Start Date End Date Vivian Massey DO [address] [place], [place] PCP - General Internal Medicine 07/21/17
--- OUTSIDE RECORDS SUMMARY | 2024-12-06 12:37 | XMS_ITS | Encounter Summary ---
Author Organization [facility] Address [address] [place] [address] Care Team Providers Care Medicaid Nurse Name Role Phone Vivian Massey DO Primary Care Provider +1- [phone] Encounter Details Date Type Department Care Team (Late st Contact Info) Description 09/23/2024 Lab Requisition [facility] - Main Lab 299 [facility] [place] [address] Araceli Maya MD [address] [phone] Essential (primary) hypertension; Anemia, unspecified; Unspecified osteoarthritis, [...] al Result [facility] [address] [place] [address], * (ABNORMAL) Complete blood count (09/24/2024 6:13 AM EDT) WBC 4.4(L) 4.8 - 10.8 K/mcL LAB HEMETOLOGY METHOD 09/24/2024 9:11 AM EDT [facility] RBC 3.60(L) 3.80 - 4.80 M/mcL LAB HEMETOLOGY METHOD 09/24[facility]2024 9[facility] Hemoglobin 11.3(L) 11.5 - 16.0 g/dL LAB HEMETOLOGY METHOD 09/24/2024 9:11 AM EDT [facility] Hematocrit 35.0 35.0 - 47.0 % LAB HEMETOLOGY METHOD 09/24/2024 9:11 AM EDT [facility] MCV 96.2 79.0 - 98.0 FL LAB HEMETOLOGY METHOD 09/24/2024 9:11 AM [facility] MCH 31.0 27.0 - 32.0 pcg LAB HEMETOLOGY METHOD 09/24/2024 9:11 AM EDT [facility] MCHC 32.3 32.0 - 37.0 g/dL LAB HEMETOLOGY METHOD 09/24/2024 9:11 AM EDT [facility] RDW 14.4 11.0 - 15.0 % LAB HEMETOLOGY METHOD 09/24/2024 9:11 [facility] Platelets 262 130 - 400 K/mcL LAB HEMETOLOGY METHOD 09/24/2024 9:11 [facility] MPV 9.3 7.0 - 11.0 FL LAB HEMETOLOGY METHOD 09/24/2024 9:11 AM EDT [facility] NRBC 0.0 <1.0 % LAB HEMETOLOGY METHOD 09/24/2024 9:11 AM EDT [facility] NRBC Absolute 0.00 <0.10 K/mcL LAB HEMETOLOGY METHOD 09/24/2024 9:11 AM EDT [facility] Blood Venous blood specimen / Unknown Venipuncture / Unknown 09/24/2024 6:13 AM EDT 09/24/2024 8:25 AM EDT us Araceli Maya MD LAB BLOOD ORDERABLES Fin al Result [facility] [address] [place] [address], documented in this encounter Visit Diagnoses Diagnosis Essential (primary) hypertension Unspecified essential hypertension Anemia, unspecified Unspecified osteoarthritis, unspecified site documented in this encounter Care Teams Medicaid Nurse Relationship Specialty Start Date End Date Vivian Massey DO [address] [place] [address] PCP - General Internal Medicine 07/21/17 documented as of this encounter
--- OUTSIDE RECORDS SUMMARY | 2024-12-06 12:37 | XMS_ITS | Encounter Summary ---
Author Organization [facility] Address [address] [place] [address] Care Team Providers Care Clinical Education Academic Coordinator Name Role Phone Vivian Massey Primary Care Provider +1- [phone] Encounter Details Date Type Department Care Team ([facility] st Contact Info) Description 10/07/2024 Lab Requisition [facility] - Main Lab 299 [facility] [place] [address] Araceli Maya MD [address] [phone] Urinary tract infection, site not specified Social [...] reflex microscopic (10/06/2024 8:10 AM EDT) Specific [place] Urine 1.022 1.003 - 1.030 LAB URINALYSIS - AUTOMATED METHOD 10/07/2024 12:13 PM [facility] pH, Urine 7.0 5.0 - 8.0 pH LAB URINALYSIS - AUTOMATED METHOD 10/07/2024 12:13 PM [facility] Leukocytes, Urine Large(A) Negative LAB URINALYSIS - AUTOMATED METHOD 10/07/2024 12:13 PM [facility] Nitrite, Urine Positive(A) Negative LAB URINALYSIS - AUTOMATED METHOD 10/07/2024 12:13 PM [facility] Protein, Urine 100(A) <=Trace mg/dL LAB URINALYSIS - AUTOMATED METHOD 10/07/2024 12:13 PM [facility] Glucose, Urine Negative Negative mg/dL LAB URINALYSIS - AUTOMATED METHOD 10/07/2024 12:13 PM [facility] Ketones, Urine Trace(A) Negative mg/dL LAB URINALYSIS - AUTOMATED METHOD 10/07/2024 12:13 PM [facility] Urobilinogen , Urine 1.0 0.2 - 1.0 mg/dL LAB URINALYSIS - AUTOMATED METHOD 10/07/2024 12:13 PM [facility] Bilirubin, Urine Negative Negative LAB URINALYSIS - AUTOMATED METHOD 10/07/2024 12:13 PM [facility] Blood, Urine Large(A) Negative LAB URINALYSIS - AUTOMATED METHOD 10/07/2024 12:13 PM [facility] RBC, Urine 20.0(H) 0 - 4 /HPF LAB URINALYSIS - AUTOMATED METHOD 10/07/2024 12:13 PM [facility] WBC, Urine 212.9(H) 0 - [...] 12:13 PM EDT [facility] Hyaline Casts, Urine 1.6 0 - 3 /LPF LAB URINALYSIS - AUTOMATED METHOD 10/07/2024 12:13 PM [facility] Urine Urine specimen obtained by clean catch procedure / Unknown Non-blood Collection / Unknown 10/06/2024 8:10 AM EDT 10/07/2024 11:17 AM EDT Araceli Maya MD LAB URINE ORDERABLES Fin al Result [facility] [address] [place] [address], * (ABNORMAL) Culture urine (10/06/2024 8:10 AM EDT) Culture, Urine >=100,000 CFU/mL Escherichia coli(A) RADHAMES 10/10/2024 7:49 AM EDT [facility] Comment: This is an edited result. Previous organism was Gram negative bacilli on 10/08/2024 at 0843 EDT. Culture, Urine 10,000-49,000 CFU/mL Morganella morganii ssp morganii(A) RADHAMES 10/10/2024 7:49 AM EDT [facility] Comment: The organism value for [...] - GENER AL ORDERABLES Final Result [facility] [place] [address] [place] [address], documented in this encounter Visit Diagnoses Diagnosis Urinary tract infection, site not specified documented in this encounter Care Teams Clinical Education Academic Coordinator Relationship Specialty Start Date End Date Vivian Massey DO [address] [place] [address] PCP - General Internal Medicine 07/21/17 documented as of this encounter
--- OUTSIDE RECORDS SUMMARY | 2024-12-06 12:37 | XMS_ITS | Encounter Summary ---
Author Organization [facility] Address [address] [place] [address] Care Team Providers Care Instructional Media Services Technician Name Role Phone Vivian Massey Primary Care Provider +1- [phone] Encounter Details Date Type Department Care Team ([facility] st Contact Info) Description 09/05/2024 Lab Requisition [facility] - Main Lab [address] [place] [address] Araceli Maya MD [address] [address] Hypokalemia Social History Tobacco Use Types Packs/Day [...] LAB CHEMISTRY METHOD 09/06/2024 7:[address] [facility] Potassium 3.6 3.5 - 5.5 mmol/L LAB CHEMISTRY METHOD 09/06/2024 7:53 AM [facility] Chloride 99 96 - 110 mmol/L LAB CHEMISTRY METHOD 09/06/2024 7:53 AM [facility] CO2 33(H) 21 - 32 mmol/L LAB CHEMISTRY METHOD 09/06/2024 7:53 AM [facility] Anion Gap 6 3 - 11 LAB CHEMISTRY METHOD 09/06/2024 7:53 AM [facility] Glucose 86 70 - 100 mg/dL LAB CHEMISTRY METHOD 09/06/2024 7:53 AM [facility] BUN 12 5 - 25 mg/dL LAB CHEMISTRY METHOD 09/06/2024 7:53 AM [facility] Creatinine 0.83 0.50 - 1.10 mg/dL LAB CHEMISTRY METHOD 09/06/2024 7:53 AM [facility] eGFR 73 >=60 mL/min/1. 73m2 LAB CHEMISTRY METHOD 09/06/2024 7:53 AM [facility] Comment:Calculation based on the Chronic Kidney Disease Epidemiology Collaboration (CKD-EPI) equation refit without adjustment for race. BUN/Creatinine Ratio 14.5 LAB CHEMISTRY METHOD 09/06/2024 7:53 AM [facility] Calcium 9.0 8.5 - 10.5 mg/dL LAB CHEMISTRY METHOD 09/06/2024 7:53 AM [facility] Blood Venous blood specimen / Unknown Venipuncture / Unknown 09/06/2024 5:51 AM EDT 09/06/2024 6:58 AM EDT us Araceli Maya MD LAB BLOOD ORDERABLES Fin al Result [facility] [address] [place] [address], documented in this encounter Visit Diagnoses Diagnosis Hypokalemia Hypopotassemia documented in this encounter Care Teams Instructional Media Services Technician Relationship Specialty Start Date End Date Vivian Massey DO [address] [place] [address] PCP - General Internal Medicine 07/21/17 documented as of this encounter
--- OUTSIDE RECORDS SUMMARY | 2024-12-06 12:37 | XMS_ITS | Encounter Summary ---
Author Organization [facility] Address [address] [place] [address] Care Team Providers Care Calciner Feeder Name Role Phone Vivian Massey DO Primary Care Provider +1- [phone] Encounter Details Date Type Department Care Team (Late st Contact Info) Description 07/22/2024 Lab Requisition [facility] - Main Lab 299 [facility] [place] [address] Araceli Maya MD [address] [phone] Essential (primary) hypertension; Anemia, unspecified; Unspecified osteoarthritis, [...] mmol/L LAB CHEMISTRY METHOD 07/23/2024 10:[address] [facility] Potassium 3.6 3.5 - 5.5 mmol/L LAB CHEMISTRY METHOD 07/23/2024 10:[address] [facility] Chloride 92(L) 96 - 110 mmol/L LAB CHEMISTRY METHOD 07/23/2024 10:[address] [facility] CO2 31 21 - 32 mmol/L LAB CHEMISTRY METHOD 07/23/2024 10:[address] [facility] Anion Gap 7 3 - 11 LAB CHEMISTRY METHOD 07/23/2024 10:[address] [facility] Glucose 82 70 - 100 mg/dL LAB CHEMISTRY METHOD 07/23/2024 10:[address] [facility] BUN 19 5 - 25 mg/dL LAB CHEMISTRY METHOD 07/23/2024 10:[address] [facility] Creatinine 0.84 0.50 - 1.10 mg/dL LAB CHEMISTRY METHOD 07/23/2024 10:[address] [facility] eGFR 72 >=60 mL/min/1. 73m2 LAB CHEMISTRY METHOD 07/23/2024 10:[address] [facility] Comment:Calculation based on the Chronic Kidney Disease Epidemiology Collaboration (CKD-EPI) equation refit without adjustment for race. BUN/Creatinine Ratio 22.6 LAB CHEMISTRY METHOD 07/23/2024 10:[address] [facility] Calcium 8.8 8.5 - 10.5 mg/dL LAB CHEMISTRY METHOD 07/23/2024 10:[address] [facility] Blood Venous blood specimen / Unknown Venipuncture / Unknown 07/23/2024 7:15 AM EDT 07/23/2024 10:01 AM EDT us Araceli Maya MD LAB BLOOD ORDERABLES Fin al Result [facility] [address] [place] [address], * (ABNORMAL) Complete blood count (07/23/2024 7:15 AM EDT) WBC 4.5(L) 4.8 - 10.8 K/mcL LAB HEMETOLOGY METHOD 07/23/2024 10:[address] [facility] RBC 3.70(L) 3.80 - 4.80 M/mcL LAB HEMETOLOGY METHOD 07/23/2024 10:[address] [facility] Hemoglobin 11.5 11.5 - 16.0 g/dL LAB HEMETOLOGY METHOD 07/23/2024 10:[address] [facility] Hematocrit 35.2 35.0 - 47.0 % LAB HEMETOLOGY METHOD 07/23/2024 10:[address] [facility] MCV 95.7 79.0 - 98.0 FL LAB HEMETOLOGY METHOD 07/23/2024 10:[address] [facility] MCH 31.3 27.0 - 32.0 pcg LAB HEMETOLOGY METHOD 07/23/2024 10:[address] [facility] MCHC 32.7 32.0 - 37.0 g/dL LAB HEMETOLOGY METHOD 07/23/2024 10:[address] [facility] RDW 13.5 11.0 - 15.0 % LAB HEMETOLOGY METHOD 07[facility]23[facility]24 [facility] Platelets 287 130 - 400 K/mcL LAB HEMETOLOGY METHOD 07/23/2024 10:[address] [facility] MPV 9.3 7.0 - 11.0 FL LAB HEMETOLOGY METHOD 07/23/2024 10:[address] [facility] NRBC 0.0 <1.0 % LAB HEMETOLOGY METHOD 07/23/2024 10:[address] [facility] NRBC Absolute 0.00 <0.10 K/mcL LAB HEMETOLOGY METHOD 07/23/2024 10:[address] [facility] Blood Venous blood specimen / Unknown Venipuncture / Unknown 07/23/2024 7:15 AM EDT 07/23/2024 10:01 AM EDT us Araceli Maya MD LAB BLOOD ORDERABLES Fin al Result [facility] [address] [place] [address], documented in this encounter Visit Diagnoses Diagnosis Essential (primary) hypertension Unspecified essential hypertension Anemia, unspecified Unspecified osteoarthritis, unspecified site documented in this encounter Care Teams Calciner Feeder Relationship Specialty Start Date End Date Vivian Massey DO [address] [place] [address] PCP - General Internal Medicine 07/21/17 documented as of this encounter
--- OUTSIDE RECORDS SUMMARY | 2024-12-06 12:37 | XMS_ITS | Encounter Summary ---
Author Organization [facility] [address] Address [address] [place] [address] Care Team Providers Care Collection Agent Name Role Phone Vivian Massey DO Primary Care Provider +1- [phone] Encounter Details Date Type Department Care Team (Late st Contact Info) Description 10/07/[address] [facility] - Main Lab 299 [facility] [place] [address] Araceli Maya MD [address] [phone] Essential (primary) hypertension; Anemia, unspecified; Unspecified osteoarthritis, [...] Complete blood count (10/08/2024 5:15 AM EDT) [facility] WBC 5.4 4.8 - 10.8 K/mcL LAB HEMETOLOGY METHOD 10/08/2024 8:04 AM [facility] RBC 3.30(L) 3.80 - 4.80 M/mcL LAB HEMETOLOGY METHOD 10/08/2024 8:04 AM [facility] Hemoglobin 10.2(L) 11.5 - 16.0 g/dL LAB HEMETOLOGY METHOD 10/08/2024 8:04 AM [facility] Hematocrit 30.8(L) 35.0 - 47.0 % LAB HEMETOLOGY METHOD 10/08/2024 8:04 AM [facility] MCV 94.5 79.0 - 98.0 FL LAB HEMETOLOGY METHOD 10/08/2024 8:04 AM [facility] MCH 31.3 27.0 - 32.0 pcg LAB HEMETOLOGY METHOD 10/08/2024 8:04 AM [facility] MCHC 33.1 32.0 - 37.0 g/dL LAB HEMETOLOGY METHOD 10/08/2024 8:04 AM [facility] RDW 14.5 11.0 - 15.0 % LAB HEMETOLOGY METHOD 10/08/2024 8:04 AM [facility] Platelets 222 130 - 400 K/mcL LAB HEMETOLOGY METHOD 10/08/2024 8:04 AM [facility] MPV 9.2 7.0 - 11.0 FL LAB HEMETOLOGY METHOD 10/08/2024 8:04 AM [facility] NRBC 0.0 <1.0 % LAB HEMETOLOGY METHOD 10/08/2024 8:04 AM [facility] NRBC Absolute 0.00 <0.10 K/mcL LAB HEMETOLOGY METHOD 10/08/2024 8:04 AM [facility] Blood Venous blood specimen / Unknown Venipuncture / Unknown 10/08/2024 5:15 AM EDT 10/08/2024 7:47 AM EDT us Araceli Maya MD LAB BLOOD ORDERABLES Fin al Result [facility] [address] [place] [address], * (ABNORMAL) Basic metabolic panel (10/08/2024 5:15 AM EDT) Sodium 131(L) 133 - 145 mmol/L LAB CHEMISTRY METHOD 10/08/2024 9:09 AM [facility] Potassium 3.6 3.5 - 5.5 mmol/L LAB CHEMISTRY METHOD 10/08/2024 9:09 AM [facility] Chloride 93(L) 96 - 110 mmol/L LAB CHEMISTRY METHOD 10/08/2024 9:09 AM [facility] CO2 33(H) 21 - 32 mmol/L LAB CHEMISTRY METHOD 10/08/2024 9:09 AM [facility] Anion Gap 5 3 - 11 LAB CHEMISTRY METHOD 10/08/2024 9:09 AM [facility] Glucose 79 70 - 100 mg/dL LAB CHEMISTRY METHOD 10/08/2024 9:09 AM [facility] BUN 14 5 - 25 mg/dL LAB CHEMISTRY METHOD 10/08/2024 9:09 AM [facility] Creatinine 0.83 0.50 - 1.10 mg/dL LAB CHEMISTRY METHOD 10/08/2024 9:09 AM [facility] eGFR 73 >=60 mL/min/1. 73m2 LAB CHEMISTRY METHOD 10/08/2024 9:09 AM EDT [facility] Comment:Calculation based on the Chronic Kidney Disease Epidemiology Collaboration (CKD-EPI) equation refit without adjustment for race. BUN/Creatinine Ratio 16.9 LAB CHEMISTRY METHOD 10/08/2024 9:09 AM EDT [facility] Calcium 8.7 8.5 - 10.5 mg/dL LAB CHEMISTRY METHOD 10/08/2024 9:09 AM EDT [facility] Blood Venous blood specimen / Unknown Venipuncture / Unknown 10/08/2024 5:15 AM EDT 10/08/2024 7:47 AM EDT us Araceli Maya MD LAB BLOOD ORDERABLES Fin al Result [facility] [address] [place] [address], documented in this encounter Visit Diagnoses Diagnosis Essential (primary) hypertension Unspecified essential hypertension Anemia, unspecified Unspecified osteoarthritis, unspecified site documented in this encounter Care Teams Collection Agent Relationship Specialty Start Date End Date Vivian Massey DO [address] [place] [address] PCP - General Internal Medicine 07/21/17 documented as of this encounter
--- OUTSIDE RECORDS SUMMARY | 2024-12-06 12:37 | XMS_ITS | Encounter Summary ---
Author Organization [facility] Address [address] [place] [address] Care Team Providers Care Older Adult Social Work Specialist Name Role Phone Vivian Massey DO Primary Care Provider +1- [phone] Encounter Details Date Type Department Care Team (Late st Contact Info) Description 08/26/2024 Lab Requisition [facility] - Main Lab 299 [facility] [place] [address] Araceli Maya MD [address] [phone] Essential (primary) hypertension; Anemia, unspecified; Unspecified osteoarthritis, [...] K/mcL LAB HEMETOLOGY METHOD 08/27/2024 8:13 AM [facility] RBC 3.80 3.80 - 4.80 M/mcL LAB HEMETOLOGY METHOD 08/27/2024 8:13 AM [facility] Hemoglobin 11.8 11.5 - 16.0 g/dL LAB HEMETOLOGY METHOD 08/27/2024 8:13 AM [facility] Hematocrit 36.4 35.0 - 47.0 % LAB HEMETOLOGY METHOD 08/27/2024 8:13 AM [facility] MCV 95.5 79.0 - 98.0 FL LAB HEMETOLOGY METHOD 08/27/2024 8:13 AM [facility] MCH 31.0 27.0 - 32.0 pcg LAB HEMETOLOGY METHOD 08/27/2024 8:13 AM [facility] MCHC 32.4 32.0 - 37.0 g/dL LAB HEMETOLOGY METHOD 08/27/2024 8:13 AM [facility] RDW 14.0 11.0 - 15.0 % LAB HEMETOLOGY METHOD 08/27/2024 8:13 AM [facility] Platelets 259 130 - 400 K/mcL LAB HEMETOLOGY METHOD 08/27/2024 8:13 AM [facility] MPV 9.2 7.0 - 11.0 FL LAB HEMETOLOGY METHOD 08/27/2024 8:13 AM [facility] NRBC 0.0 <1.0 % LAB HEMETOLOGY METHOD 08/27/2024 8:13 AM [facility] NRBC Absolute 0.00 <0.10 K/mcL LAB HEMETOLOGY METHOD 08/27/2024 8:13 AM [facility] Blood Venous blood specimen / Unknown Venipuncture / Unknown 08/27/2024 6:06 AM EDT 08/27/2024 7:07 AM EDT us Araceli Maya MD LAB BLOOD ORDERABLES Fin al Result [facility] [address] [place] [address], [place] [phone] * (ABNORMAL) Basic metabolic panel (08/27/2024 6:06 AM EDT) Sodium 137 133 - 145 mmol/L LAB CHEMISTRY METHOD 08/27/2024 8:42 AM [facility] Potassium 3.9 3.5 - 5.5 mmol/L LAB CHEMISTRY METHOD 08/27/2024 8:42 AM [facility] Chloride 97 96 - 110 mmol/L LAB CHEMISTRY METHOD 08/27/2024 8:42 AM [facility] CO2 34(H) 21 - 32 mmol/L LAB CHEMISTRY METHOD 08/27/2024 8:42 AM [facility] Anion Gap 6 3 - 11 LAB CHEMISTRY METHOD 08/27/2024 8:42 AM [facility] Glucose 83 70 - 100 mg/dL LAB CHEMISTRY METHOD 08/27/2024 8:42 AM [facility] BUN 13 5 - 25 mg/dL LAB CHEMISTRY METHOD 08/27/2024 8:42 AM [facility] Creatinine 0.86 0.50 - 1.10 mg/dL LAB CHEMISTRY METHOD 08/27/2024 8:42 AM [facility] eGFR 70 >=60 mL/min/1. 73m2 LAB CHEMISTRY METHOD 08/27/2024 8:42 AM EDT [facility] Comment:Calculation based on the Chronic Kidney Disease Epidemiology Collaboration (CKD-EPI) equation refit without adjustment for race. BUN/Creatinine Ratio 15.1 LAB CHEMISTRY METHOD 08/27/2024 8:42 AM EDT [facility] Calcium 8.5 8.5 - 10.5 mg/dL LAB CHEMISTRY METHOD 08/27/2024 8:42 AM EDT [facility] Blood Venous blood specimen / Unknown Venipuncture / Unknown 08/27/2024 6:06 AM EDT 08/27/2024 7:07 AM EDT us Araceli Maya MD LAB BLOOD ORDERABLES Fin al Result [facility] [address] [place] [address], documented in this encounter Visit Diagnoses Diagnosis Essential (primary) hypertension Unspecified essential hypertension Anemia, unspecified Unspecified osteoarthritis, unspecified site documented in this encounter Care Teams Older Adult Social Work Specialist Relationship Specialty Start Date End Date Vivian Massey DO [address] [place] [address] PCP - General Internal Medicine 07/21/17 documented as of this encounter
--- OUTSIDE RECORDS SUMMARY | 2024-12-06 12:37 | XMS_ITS | Clinical Summary ---
Author Organization [facility] Address [address] [place] [address] Care Team Providers Care Fixed Income Portfolio Manager Name Role Phone Vidal Pinzon MD Primary Care Provider [phone] Medications Medication Sig Dispensed Refills Start Date [...] age to complete this topic Care Teams Fixed Income Portfolio Manager Relationship Specialty Start Date End Date Vidal Pinzon MD [address] [place] [address] PCP - General Family Medicine 02/18/20
--- OUTSIDE RECORDS SUMMARY | 2024-12-06 12:37 | XMS_ITS | Encounter Summary ---
Author Organization [facility] Address [address] [place] [address] Care Team Providers Care Granite Polisher Name Role Phone Vivian Massey DO Primary Care Provider +1- [phone] Encounter Details Date Type Department Care Team (Late st Contact Info) Description 10/14/2024 Lab Requisition [facility] - Main Lab 299 [facility] [place] [address] Araceli Maya MD [address] [phone] Essential (primary) hypertension; Anemia, unspecified; Unspecified osteoarthritis, [...] Complete blood count (10/15/2024 6:42 AM EDT) [facility] WBC 5.2 4.8 - 10.8 K/mcL LAB HEMETOLOGY METHOD 10/15/2024 9:09 AM [facility] RBC 3.50(L) 3.80 - 4.80 M/mcL LAB HEMETOLOGY METHOD 10/15/2024 9:09 AM [facility] Hemoglobin 11.0(L) 11.5 - 16.0 g/dL LAB HEMETOLOGY METHOD 10/15/2024 9:09 AM [facility] LAB Hematocrit 34.0(L) 35.0 - 47.0 % LAB HEMETOLOGY METHOD 10/15/2024 9:09 AM [facility] MCV 96.0 79.0 - 98.0 FL LAB HEMETOLOGY METHOD 10/15/2024 9:09 AM [facility] MCH 31.1 27.0 - 32.0 pcg LAB HEMETOLOGY METHOD 10/15/2024 9:09 AM [facility] LAB MCHC 32.4 32.0 - 37.0 g/dL LAB HEMETOLOGY METHOD 10/15/2024 9:09 AM [facility] RDW 14.6 11.0 - 15.0 % LAB HEMETOLOGY METHOD 10/15/2024 9:09 AM [facility] Platelets 264 130 - 400 K/mcL LAB HEMETOLOGY METHOD 10/15/2024 9:09 AM [facility] MPV 8.8 7.0 - 11.0 FL LAB HEMETOLOGY METHOD 10/15/2024 9:09 AM [facility] NRBC 0.0 <1.0 % LAB HEMETOLOGY METHOD 10/15/2024 9:09 AM [facility] LAB NRBC Absolute 0.00 <0.10 K/mcL LAB HEMETOLOGY METHOD 10/15/2024 9:09 AM [facility] Blood Venous blood specimen / Unknown Venipuncture / Unknown 10/15/2024 6:42 AM EDT 10/15/2024 8:23 AM EDT us Araceli Maya MD LAB BLOOD ORDERABLES Fin al Result [facility] [address] [place] [address], * (ABNORMAL) Basic metabolic panel (10/15/2024 6:42 AM EDT) Sodium 134 133 - 145 mmol/L LAB CHEMISTRY METHOD 10/15/2024 9:34 AM [facility] Potassium 4.1 3.5 - 5.5 mmol/L LAB CHEMISTRY METHOD 10/15/2024 9:34 AM [facility] Chloride 97 96 - 110 mmol/L LAB CHEMISTRY METHOD 10/15/2024 9:34 AM [facility] CO2 34(H) 21 - 32 mmol/L LAB CHEMISTRY METHOD 10/15/2024 9:34 AM [facility] Anion Gap 3 3 - 11 LAB CHEMISTRY METHOD 10/15/2024 9:34 AM [facility] Glucose 84 70 - 100 mg/dL LAB CHEMISTRY METHOD 10/15/2024 9:34 AM [facility] BUN 15 5 - 25 mg/dL LAB CHEMISTRY METHOD 10/15/2024 9:34 AM [facility] Creatinine 1.01 0.50 - 1.10 mg/dL LAB CHEMISTRY METHOD 10/15/2024 9:34 AM [facility] eGFR 58(L) >=60 mL/min/1. 73m2 LAB CHEMISTRY METHOD 10/15/2024 9:34 AM EDT [facility] Comment:Calculation based on the Chronic Kidney Disease Epidemiology Collaboration (CKD-EPI) equation refit without adjustment for race. BUN/Creatinine Ratio 14.9 LAB CHEMISTRY METHOD 10/15/2024 9:34 AM EDT [facility] Calcium 9.0 8.5 - 10.5 mg/dL LAB CHEMISTRY METHOD 10/15/2024 9:34 AM EDT [facility] Blood Venous blood specimen / Unknown Venipuncture / Unknown 10/15/2024 6:42 AM EDT 10/15/2024 8:23 AM EDT us Araceli Maya MD LAB BLOOD ORDERABLES Fin al Result [facility] [address] [place] [address], documented in this encounter Visit Diagnoses Diagnosis Essential (primary) hypertension Unspecified essential hypertension Anemia, unspecified Unspecified osteoarthritis, unspecified site documented in this encounter Care Teams Granite Polisher Relationship Specialty Start Date End Date Vivian Massey DO [address] [place] [address] PCP - General Internal Medicine 07/21/17 documented as of this encounter
--- OUTSIDE RECORDS SUMMARY | 2024-12-06 12:37 | XMS_ITS | Encounter Summary ---
Author Organization [facility] Address [address] [place] [address] Care Team Providers Care Accounting Coordinator Name Role Phone Vivian Massey DO Primary Care Provider +1- [phone] Encounter Details Date Type Department Care Team (Late st Contact Info) Description 07/29/2024 Lab Requisition [facility] - Main Lab 299 [facility] [place] [address] Araceli Maya MD [address] [phone] Essential (primary) hypertension; Anemia, unspecified; Unspecified osteoarthritis, [...] mmol/L LAB CHEMISTRY METHOD 07/30/2024 12:09 PM [facility] Potassium 3.9 3.5 - 5.5 mmol/L LAB CHEMISTRY METHOD 07/30/2024 12:09 PM [facility] Chloride 96 96 - 110 mmol/L LAB CHEMISTRY METHOD 07/30/2024 12:09 PM [facility] CO2 30 21 - 32 mmol/L LAB CHEMISTRY METHOD 07/30/2024 12:09 PM [facility] Anion Gap 7 3 - 11 LAB CHEMISTRY METHOD 07/30/2024 12:09 PM [facility] Glucose 71 70 - 100 mg/dL LAB CHEMISTRY METHOD 07/30/2024 12:09 PM [facility] BUN 13 5 - 25 mg/dL LAB CHEMISTRY METHOD 07/30/2024 12:09 PM [facility] Creatinine 0.80 0.50 - 1.10 mg/dL LAB CHEMISTRY METHOD 07/30/2024 12:09 PM [facility] LAB eGFR 76 >=60 mL/min/1. 73m2 LAB CHEMISTRY METHOD 07/30/2024 12:09 PM [facility] Comment:Calculation based on the Chronic Kidney Disease Epidemiology Collaboration (CKD-EPI) equation refit without adjustment for race. BUN/Creatinine Ratio 16.3 LAB CHEMISTRY METHOD 07/30/2024 12:09 PM [facility] Calcium 8.3(L) 8.5 - 10.5 mg/dL LAB CHEMISTRY METHOD 07/30/2024 12:09 PM [facility] Blood Venous blood specimen / Unknown Venipuncture / Unknown 07/30/2024 6:05 AM EDT 07/30/2024 10:35 AM EDT us Whit Laba Elder MD LAB BLOOD ORDERABLES Fin al Result [facility] [address] [place] [address], * (ABNORMAL) Complete blood count (07/30/2024 6:05 AM EDT) WBC 4.6(L) 4.8 - 10.8 K/mcL LAB HEMETOLOGY METHOD 07/30/2024 10:49 AM EDT [facility] RBC 3.40(L) 3.80 - 4.80 M/mcL LAB HEMETOLOGY METHOD 07/30/2024 10:49 AM [facility] Hemoglobin 10.5(L) 11.5 - 16.0 g/dL LAB HEMETOLOGY METHOD 07/30/2024 10:49 AM [facility] Hematocrit 32.1(L) 35.0 - 47.0 % LAB HEMETOLOGY METHOD 07/30/2024 10:49 AM [facility] MCV 95.3 79.0 - 98.0 FL LAB HEMETOLOGY METHOD 07/30/2024 10:49 AM [facility] MCH 31.2 27.0 - 32.0 pcg LAB HEMETOLOGY METHOD [facility] MCHC 32.7 32.0 - 37.0 g/dL LAB HEMETOLOGY METHOD 07/30[facility]2024 10[facility] RDW 13.5 11.0 - 15.0 % LAB HEMETOLOGY METHOD 07/30/2024 10[facility] Platelets 366 130 - 400 K/mcL LAB HEMETOLOGY METHOD 07/30/2024 10[facility] MPV 8.9 7.0 - 11.0 FL LAB HEMETOLOGY METHOD 07/30/2024 10:49 AM EDT [facility] NRBC 0.0 <1.0 % LAB HEMETOLOGY METHOD 07/30/2024 10:49 AM EDT [facility] NRBC Absolute 0.00 <0.10 K/mcL LAB HEMETOLOGY METHOD 07/30/2024 10:49 AM EDT [facility] Blood Venous blood specimen / Unknown Venipuncture / Unknown 07/30/2024 6:05 AM EDT 07/30/2024 10:35 AM EDT us Araceli Maya MD LAB BLOOD ORDERABLES Fin al Result [facility] [address] [place] [address], documented in this encounter Visit Diagnoses Diagnosis Essential (primary) hypertension Unspecified essential hypertension Anemia, unspecified Unspecified osteoarthritis, unspecified site documented in this encounter Care Teams Accounting Coordinator Relationship Specialty Start Date End Date Vivian Massey DO [address] [place], [place] PCP - General Internal Medicine 07/21/17 documented as of this encounter
--- OUTSIDE RECORDS SUMMARY | 2024-12-06 12:37 | XMS_ITS | Encounter Summary ---
Author Organization [facility] Address [address] [place] [address] Care Team Providers Care Patient Transport Officer Name Role Phone Vivian Massey DO Primary Care Provider +1- [phone] Encounter Details Date Type Department Care Team (Late st Contact Info) Description 07/20/2024 Lab Requisition [facility] - Main Lab 299 [facility] [place] [address] Araceli Maya MD [address] [phone] Anemia, unspecified; Essential (primary) hypertension; Vitamin D [...] mmol/L LAB CHEMISTRY METHOD 07/20/2024 10:59 AM [facility] Potassium 3.9 3.5 - 5.5 mmol/L LAB CHEMISTRY METHOD 07/20/2024 10:59 AM [facility] Chloride 85(L) 96 - 110 mmol/L LAB CHEMISTRY METHOD 07/20/2024 10:59 AM [facility] CO2 31 21 - 32 mmol/L LAB CHEMISTRY METHOD 07/20/2024 10:59 AM [facility] Anion Gap 8 3 - 11 LAB CHEMISTRY METHOD 07/20/2024 10:59 AM [facility] Glucose 78 70 - 100 mg/dL LAB CHEMISTRY METHOD 07/20/2024 10:59 AM [facility] BUN 13 5 - 25 mg/dL LAB CHEMISTRY METHOD 07/20/2024 10:59 AM [facility] Creatinine 0.63 0.50 - 1.10 mg/dL LAB CHEMISTRY METHOD 07/20/2024 10:59 AM [facility] eGFR 92 >=60 mL/min/1. 73m2 LAB CHEMISTRY METHOD 07/20/2024 10:59 AM [facility] Comment:Calculation based on the Chronic Kidney Disease Epidemiology Collaboration (CKD-EPI) equation refit without adjustment for race. BUN/Creatinine Ratio 20.6 LAB CHEMISTRY METHOD 07/20/2024 10:59 AM [facility] Calcium 8.5 8.5 - 10.5 mg/dL LAB CHEMISTRY METHOD 07/20/2024 10:59 AM [facility] Blood Venous blood specimen / Unknown Venipuncture / Unknown 07/20/2024 6:07 AM EDT 07/20/2024 9:41 AM EDT Araceli Maya MD LAB BLOOD ORDERABLES Fin al Result [facility] [address] [place] [address], * (ABNORMAL) Complete blood count (07/20/2024 6:07 AM EDT) WBC 3.8(L) 4.8 - 10.8 K/mcL LAB HEMETOLOGY METHOD 07/20/2024 10:30 AM EDT [facility] RBC 3.60(L) 3.80 - 4.80 M/mcL LAB HEMETOLOGY METHOD [facility] Hemoglobin 11.4(L) 11.5 - 16.0 g/dL LAB HEMETOLOGY METHOD 07/20/2024 10:30 AM [facility] Hematocrit 33.3(L) 35.0 - 47.0 % LAB HEMETOLOGY METHOD [facility] MCV 93.3 79.0 - 98.0 FL LAB HEMETOLOGY METHOD 07/20[facility]2024 [facility] MCH 31.9 27.0 - 32.0 pcg LAB HEMETOLOGY METHOD 07/20/2024 10:30 AM EDT [facility] MCHC 34.2 32.0 - 37.0 g/dL LAB HEMETOLOGY METHOD 07/20[facility]24 [facility] RDW 12.7 11.0 - 15.0 % LAB HEMETOLOGY METHOD 07/20[facility]24 [facility] Platelets 194 130 - 400 K/mcL LAB HEMETOLOGY METHOD 07/20[facility]2024 [facility] MPV 9.6 7.0 - 11.0 FL LAB HEMETOLOGY METHOD 07/20/2024 10:30 AM EDT [facility] NRBC 0.0 <1.0 % LAB HEMETOLOGY METHOD 07/20/2024 10:30 AM EDT [facility] NRBC Absolute 0.00 <0.10 K/mcL LAB HEMETOLOGY METHOD 07/20/2024 10:30 AM EDT [facility] Blood Venous blood specimen / Unknown Venipuncture / Unknown 07/20/2024 6:07 AM EDT 07/20/2024 9:41 AM EDT us Araceli Maya MD LAB BLOOD ORDERABLES Fin al Result [facility] [address] [place] [address], documented in this encounter Visit Diagnoses Diagnosis Anemia, unspecified Essential (primary) hypertension Unspecified essential hypertension Vitamin D deficiency, unspecified documented in this encounter Care Teams Patient Transport Officer Relationship Specialty Start Date End Date Vivian Massey DO [address] [place], [place] PCP - General Internal Medicine 07/21/17 documented as of this encounter
--- OUTSIDE RECORDS SUMMARY | 2024-12-06 12:37 | XMS_ITS | Encounter Summary ---
Author Organization [facility] Address [address] [place] [address] Care Team Providers Care Pattern Wheel Maker Name Role Phone Vivian Massey DO Primary Care Provider +1- [phone] Encounter Details Date Type Department Care Team (Late st Contact Info) Description 09/09/2024 Lab Requisition [facility] - Main Lab 299 [facility] [place] [address] Araceli Maya MD [address] [phone] Essential (primary) hypertension; Anemia, unspecified; Unspecified osteoarthritis, [...] Complete blood count (09/10/2024 6:14 AM EDT) [facility] Signature WBC 4.6(L) 4.8 - 10.8 K/mcL LAB HEMETOLOGY METHOD 09/10/2024 8:06 AM [facility] RBC 3.50(L) 3.80 - 4.80 M/mcL LAB HEMETOLOGY METHOD 09/10/2024 8:06 AM [facility] Hemoglobin 10.9(L) 11.5 - 16.0 g/dL LAB HEMETOLOGY METHOD 09/10/2024 8:06 AM [facility] LAB Hematocrit 34.1(L) 35.0 - 47.0 % LAB HEMETOLOGY METHOD 09/10/2024 8:06 AM [facility] LAB MCV 98.0 79.0 - 98.0 FL LAB HEMETOLOGY METHOD 09/10/2024 8:06 AM [facility] LAB MCH 31.3 27.0 - 32.0 pcg LAB HEMETOLOGY METHOD 09/10/2024 8:06 AM [facility] LAB MCHC 32.0 32.0 - 37.0 g/dL LAB HEMETOLOGY METHOD 09/10/2024 8:06 AM [facility] LAB RDW 14.4 11.0 - 15.0 % LAB HEMETOLOGY METHOD 09/10/2024 8:06 AM [facility] LAB Platelets 239 130 - 400 K/mcL LAB HEMETOLOGY METHOD 09/10/2024 8:06 AM [facility] MPV 9.1 7.0 - 11.0 FL LAB HEMETOLOGY METHOD 09/10/2024 8:06 AM [facility] NRBC 0.0 <1.0 % LAB HEMETOLOGY METHOD 09/10/2024 8:06 AM [facility] NRBC Absolute 0.00 <0.10 K/mcL LAB HEMETOLOGY METHOD 09/10/2024 8:06 AM [facility] Blood Venous blood specimen / Unknown Venipuncture / Unknown 09/10/2024 6:14 AM EDT 09/10/2024 7:30 AM EDT us Araceli Maya MD LAB BLOOD ORDERABLES Fin al Result [facility] [address] [place] [address], [place] [phone] * (ABNORMAL) Basic metabolic panel (09/10/2024 6:14 AM EDT) Sodium 138 133 - 145 mmol/L LAB CHEMISTRY METHOD 09/10/2024 8:28 AM [facility] Potassium 3.6 3.5 - 5.5 mmol/L LAB CHEMISTRY METHOD 09/10/2024 8:28 AM [facility] Chloride 100 96 - 110 mmol/L LAB CHEMISTRY METHOD 09/10/2024 8:28 AM [facility] CO2 33(H) 21 - 32 mmol/L LAB CHEMISTRY METHOD 09/10/2024 8:28 AM [facility] Anion Gap 5 3 - 11 LAB CHEMISTRY METHOD 09/10/2024 8:28 AM [facility] Glucose 86 70 - 100 mg/dL LAB CHEMISTRY METHOD 09/10/2024 8:28 AM [facility] BUN 18 5 - 25 mg/dL LAB CHEMISTRY METHOD 09/10/2024 8:28 AM [facility] Creatinine 0.81 0.50 - 1.10 mg/dL LAB CHEMISTRY METHOD 09/10/2024 8:28 AM [facility] eGFR 75 >=60 mL/min/1. 73m2 LAB CHEMISTRY METHOD 09/10/2024 8:28 AM EDT [facility] Comment:Calculation based on the Chronic Kidney Disease Epidemiology Collaboration (CKD-EPI) equation refit without adjustment for race. BUN/Creatinine Ratio 22.2 LAB CHEMISTRY METHOD 09/10/2024 8:28 AM EDT [facility] Calcium 8.5 8.5 - 10.5 mg/dL LAB CHEMISTRY METHOD 09/10/2024 8:28 AM EDT [facility] Blood Venous blood specimen / Unknown Venipuncture / Unknown 09/10/2024 6:14 AM EDT 09/10/2024 7:30 AM EDT us Araceli Maya MD LAB BLOOD ORDERABLES Fin al Result [facility] [address] [place] [address], documented in this encounter Visit Diagnoses Diagnosis Essential (primary) hypertension Unspecified essential hypertension Anemia, unspecified Unspecified osteoarthritis, unspecified site documented in this encounter Care Teams Pattern Wheel Maker Relationship Specialty Start Date End Date Vivian Massey DO [address] [place] [address] PCP - General Internal Medicine 07/21/17 documented as of this encounter
--- OUTSIDE RECORDS SUMMARY | 2024-12-06 12:37 | XMS_ITS | Encounter Summary ---
Author Organization [facility] Address [address] [place] [address] Care Team Providers Care Servicing Manager Name Role Phone Vivian Massey Primary Care Provider +1- [phone] Encounter Details Date Type Department Care Team ([facility] st Contact Info) Description 09/25/[address] [facility] - Main Lab [address] [place] [address] Araceli Maya MD [address] [phone] Hypokalemia Social History Tobacco Use Types Packs/Day [...] LAB CHEMISTRY METHOD 09/26/2024 9:09 AM EDT [facility] Potassium 3.6 3.5 - 5.5 mmol/L LAB CHEMISTRY METHOD 09/26/2024 9:09 AM [facility] Chloride 100 96 - 110 mmol/L LAB CHEMISTRY METHOD 09/26/2024 9:09 AM [facility] CO2 33(H) 21 - 32 mmol/L LAB CHEMISTRY METHOD 09/26/2024 9:09 AM [facility] Anion Gap 3 3 - 11 LAB CHEMISTRY METHOD 09/26/2024 9:09 AM [facility] Glucose 76 70 - 100 mg/dL LAB CHEMISTRY METHOD 09/26/2024 9:09 AM [facility] BUN 14 5 - 25 mg/dL LAB CHEMISTRY METHOD 09/26/2024 9:09 AM [facility] Creatinine 0.82 0.50 - 1.10 mg/dL LAB CHEMISTRY METHOD 09/26/2024 9:09 AM [facility] LAB eGFR 74 >=60 mL/min/1. 73m2 LAB CHEMISTRY METHOD 09/26/2024 9:09 AM [facility] Comment:Calculation based on the Chronic Kidney Disease Epidemiology Collaboration (CKD-EPI) equation refit without adjustment for race. BUN/Creatinine Ratio 17.1 LAB CHEMISTRY METHOD 09/26/2024 9:09 AM [facility] Calcium 9.3 8.5 - 10.5 mg/dL LAB CHEMISTRY METHOD 09/26/2024 9:09 AM [facility] Blood Venous blood specimen / Unknown Venipuncture / Unknown 09/26/2024 5:47 AM EDT 09/26/2024 7:40 AM EDT us Araceli Maya MD LAB BLOOD ORDERABLES Fin al Result [facility] [address] [place] [address], documented in this encounter Visit Diagnoses Diagnosis Hypokalemia Hypopotassemia documented in this encounter Care Teams Servicing Manager Relationship Specialty Start Date End Date Vivian Massey DO [address] [place] [address] PCP - General Internal Medicine 07/21/17 documented as of this encounter
== END 2024-12-06 11:44 | disposition home or self-care (01) ==
LOC: HO.HOS 10:53
PROVIDERS: PCP Internal Medicine; Visit Provider Physician Assistant
DX: S82.842A Displaced bimalleolar fracture of left lower leg, initial encounter for closed fracture (principal)
CPT/HCPCS: 99213

== ENCOUNTER → 2024-12-06 11:13 | Outpatient (BNV) | payer MEDICARE, MEDICAID, SELFPAY | PROVIDERS: Visit Provider Radiology Diagnostic Radiology | DX: M25.571 Pain in right ankle and joints of right foot (principal) | CPT/HCPCS: 73610 ==

== ENCOUNTER 2025-01-03 11:09 | Outpatient (REF) | payer MEDICARE, MEDICAID, SELFPAY ==
--- OUTSIDE RECORDS SUMMARY | 2025-01-03 10:15 | XMS_ITS | Encounter Summary ---
Author Organization [employer] Address [address] [facility] [address] [address] Care Team Providers Care Career Coordinator Name Role Phone Vivian Massey DO Primary Care Provider + [phone] Reason for Referral * Imaging (Routine) - Authorized Specialty Diagnoses / Procedures Referred By Contac t Referred To Contact Radiology Diagnoses Nephrolithiasis Hydronephrosis, unspecified hydronephrosis type Procedures US RENAL BI Karly Guzman MD [address] [place] [address] Phone: tel: fax: [address] Phone: tel: fax: Referral ID Status Reason Start Date Expiration Date V isits Requested Visits Authorized [id number] Authorized 01/03/2025 01/03/2026 1 1 Encounter Details Date Type Department Care Team (Latest Contact Info) Description 01/03/2025 10:15 AM EDT Office Visit [facility] [address] [place], [place] [phone] Karly Guzman MD [address] [place], [place] [phone] Nephrolithiasis (Primary Dx); Hydronephrosis, unspecified hydronephrosis type; Dysuria; Encounter for immunization Social History Tobacco Use Types Packs/Day Years Used Date Smoking Tobacco: Former Cigarettes Smokeless Tobacco: Former Tobacco Cessation:Counseling Given: Not Answered Comments:25 years ago Alcohol Use Standard Drinks/Week Comments Never 0 (1 standard drink = 0.6 oz pur e alcohol) Depression Answer Date Recorded Patient Health Questionnaire-9 Score 5 01/03/2025 Patient Health Questionnaire-9 Score 5 01/03/2025 Last PHQ-9: Questionnaire Data Not on file 1 Housing Stability Answer Date Recorded What is your housing situation today? I have aniket alvarado 01/03/[address] you li ve. Do you have problems with any of the following? None of the above 01/03/2025 Food Insecurity Answer Date Recorded Within the past 12 months, y ou worried that your food would run out before you got money to buy more: Often true 2024 Within the past 12 months,th e food you bought just didn't last and you didn't have enough money to get more: Sometimes True 01/03/2025 Transportation Answer Date Recorded In the past 12 months, has l ack of transportation kept you from medical appts, meetings, work or from getting things needed for daily living? Yes, it has kept me from medical appointments or getting medications. 01/03/2025 Utilities Answer Date Recorded In the past 12 months, has t he electric, gas, oil or water company threatened to shut off services in your home? No 01/03/2025 Depression Answer Date Recorded Patient Health Questionnaire-2 Score 2 01/03/2025 Internet Access Answer Date Recorded Internet Access Q1 Yes 01/03/2025 Internet Access Q2 Not on file 01/03/2025 Comments Unknown Sex and Gender Information Value Date Recorded Sex Assigned at Female 01/10/2022 10:21 AM EDT Legal Sex Female 10:21 AM EDT Gender Identity Female 01/10/2022 10:21 AM EDT Sexual Orientation Straight 01/10/2022 10 :21 AM EDT documented as of this encounter Last Filed Vital Signs Vital Sign Reading Time Taken Comments Blood Pressure 138/88 01/03/2025 10:28 AM EDT Pulse 80 01/03/2025 10:28 AM EDT Temperature 36.2 C (97.1 F) 01/03/2025 10:28 AM EDT Respiratory Rate 20 01/03/2025 10:28 AM EDT Oxygen Saturation - - Inhaled Oxygen Concentration - - Weight 86.2 kg (190 lb) 01/03/2025 10:28 AM EDT Height 149.9 cm (4' 11 ) 01/03/2025 10:28 AM EDT Body Mass Index 38.38 01/03/2025 10:28 AM EDT documented in this encounter Functional Status * Over the past 2 weeks, how often have you been bothered by any of the following problems? Question Answer Date of Assessment Author Patient Health Questionnaire -2 Score 2 01/03/2025 10:29 AM EDT Debbie Sosa MA * Little interest or pleasure in doing things Answer Date of Assessment Author Several days 01/03/2025 10:29 AM Debbie Maher MA * Feeling down, depressed, or hopeless Answer Date of Assessment Author Several days 01/03/2025 10:29 AM Debbie Maher MA * Trouble falling or staying asleep, or sleeping too much Answer Date of Assessment Author Not at all 01/03/2025 10:29 AM Debbie Maher MA * Feeling tired or having little energy Answer Date of Assessment Author Nearly every day 01/03/2025 10:29 AM Debbie Maher MA * Poor appetite or overeating Answer Date of Assessment Author Not at all 01/03/2025 10:29 AM Debbie Maher MA * Feeling bad about yourself - or that you are a failure or have let yourself or your family down Answer Date of Assessment Author Not at all 01/03/2025 10:29 AM Debbie Maher MA * Trouble concentrating on things, such as reading the newspaper or watching television Answer Date of Assessment Author Not at all 01/03/2025 10:29 AM Debbie Maher MA * Moving or speaking so slowly that other people could have noticed? Or the opposite - being so fidgety or restless that you have been moving around a lot more than usual. Answer Date of Assessment Author Not at all 01/03/2025 10:29 AM EDT Debbie Sosa MA * Thoughts that you would be better off or hurting yourself in some way Answer Date of Assessment Author Not at all 01/03/2025 10:29 AM EDT Debbie Sosa MA * Patient Health Questionnaire-9 Score Answer Date of Assessment Author 5 01/03/2025 10:29 AM EDT Debbie Sosa MA * How difficult have these problems made it for you to do your work, take care of things at home, or get along with other people? Answer Date of Assessment Author Not difficult at all 01/03/2025 10:29 AM EDT Debbie Bragg MA documented as of this encounter Plan of Treatment Scheduled Orders Name Type Priority Associated Diagnoses Orde r Schedule US RENAL BI Imaging Routine Nephrolithiasis Hydronephrosis, unspecified hydronephrosis type Expected: 01/03/2025, Expires: 01/03/2026 Urinalysis, Complete, with Reflex to Culture Lab Routine Dysuria Expected: 01/03/2025 (Approximate), Expires: 01/03/2026 documented as of this encounter Procedures Procedure Name Priority Date/Time Associated Diagnosis Comments POCT URINALYSIS DIPSTICK Routine 01/03/2025 11:39 AM EDT Dysuria documented in this encounter Results * (ABNORMAL) POCT Urinalysis (01/03/2025 11:39 AM EDT) Color, UA Yellow Clarity, UA Clear Glucose, UA Negative Bilirubin, UA Trace Comment:small Ketones, UA Negative Spec Grav, UA 1.025 Blood, UA Positive(A) Negative, None Detected Comment:moderete pH, UA 6.0 Protein, UA 1+ 70+ Comment:30 mg Urobilinogen, UA 0.2 Leukocytes, UA Trace Negative, Rare, Trace Comment:small Nitrite, UA Negative Negative, None Detected QC Media Lot # [id number] Lot# Expiration Date ,026 Urine (Urine, Random) 01/03/2025 11:39 AM EDT us Karly Cade MD POINT OF CARE [place] T ENTER/EDIT ORDERABLES Final Result documented in this encounter Visit Diagnoses Diagnosis Nephrolithiasis- Primary Calculus of kidney Hydronephrosis, unspecified hydronephrosis type Dysuria Encounter for immunization documented in this encounter Additional Health Concerns Assessment Noted Time PHQ-9 Depression Total Score: 5 01/04/20 25 10:29 AM EDT documented as of this encounter Care Teams Career Coordinator Relationship Specialty Start Date End Date Vivian Massey DO [address] [place] [address] PCP - General Family Medicine 07/27/20 documented as of this encounter
--- OUTSIDE RECORDS SUMMARY | 2025-01-03 13:30 | XMS_ITS | Encounter Summary ---
Author Organization [employer] Address [address] [facility] [address] [place] [address] Care Team Providers Care Stockfeed Miller Name Role Phone Vivian Massey DO Primary Care Provider +1- [phone] Reason for Visit * Reason Onset Date Comments Prior Authorization 06/20/2022 Encounter Details Date Type Department Care Team ([facility] st Contact Info) Description 06/20/2022 Telephone [facility] [address] [place] [address] Vivian Massey DO [address] [place], [place] [phone] Prior Authorization Social History Tobacco Use Types [...] requesting medication tretinoin (Retin-A) 0.025 % cream. Cafeteria Food Server spoke with pharmacy and a PA is needed . documented in this encounter Plan of Treatment Not on file documented as of this encounter Visit Diagnoses Not on filedocumented in this encounter Additional Health Concerns Assessment Noted Time PHQ-9 Depression Total Score: 9 06/17/19 23 4:09 PM EDT documented as of this encounter Care Teams Stockfeed Miller Relationship Specialty Start Date End Date Vivian Massey DO [address] [place] [address] PCP - General Family Medicine 07/27/20 documented as of this encounter
--- OUTSIDE RECORDS SUMMARY | 2025-01-03 13:30 | XMS_ITS | Encounter Summary ---
Author Organization [facility] Address [address] [place] [address] Care Team Providers Care Product Communications Manager Name Role Phone Vivian Massey DO Primary Care Provider [phone]- [phone] Encounter Details Date Type Department Care Team (Late st Contact Info) Description 09/23/2024 Lab Requisition [facility] - Main Lab [address] [facility] [place] [address] Araceli Maya MD [address] [phone] Essential (primary) hypertension; Anemia, unspecified; Unspecified osteoarthritis, [...] mmol/L LAB CHEMISTRY METHOD 09/24/2024 9:37 AM [facility] Potassium 3.3(L) 3.5 - 5.5 mmol/L LAB CHEMISTRY METHOD 09/24/2024 9:37 AM [facility] Chloride 99 96 - 110 mmol/L LAB CHEMISTRY METHOD 09/24/2024 9:37 AM [facility] CO2 31 21 - 32 mmol/L LAB CHEMISTRY METHOD 09/24/2024 9:37 AM [facility] Anion Gap 7 3 - 11 LAB CHEMISTRY METHOD 09/24/2024 9:37 AM [facility] Glucose 80 70 - 100 mg/dL LAB CHEMISTRY METHOD 09/24/2024 9:37 AM [facility] BUN 12 5 - 25 mg/dL LAB CHEMISTRY METHOD 09/24/2024 9:37 AM [facility] Creatinine 0.73 0.50 - 1.10 mg/dL LAB CHEMISTRY METHOD 09/24/2024 9:37 AM [facility] eGFR 85 >=60 mL/min/1. 73m2 LAB CHEMISTRY METHOD 09/24/2024 9:37 AM [facility] Comment:Calculation based on the Chronic Kidney Disease Epidemiology Collaboration (CKD-EPI) equation refit without adjustment for race. BUN/Creatinine Ratio 16.4 LAB CHEMISTRY METHOD 09/24/2024 9:37 AM [facility] Calcium 9.2 8.5 - 10.5 mg/dL LAB CHEMISTRY METHOD 09/24/2024 9:37 AM [facility] Blood Venous blood specimen / Unknown Venipuncture / Unknown 09/24/2024 6:13 AM EDT 09/24/2024 8:25 AM EDT us Whit Laba Elder MD LAB BLOOD ORDERABLES Fin al Result [facility] [address] [place] [address], * (ABNORMAL) Complete blood count (09/24/2024 6:13 AM EDT) WBC 4.4(L) 4.8 - 10.8 K/mcL LAB HEMETOLOGY METHOD 09/24/2024 9:11 AM EDT [facility] RBC 3.60(L) 3.80 - 4.80 M/mcL LAB HEMETOLOGY METHOD [facility]/24[facility]24 [facility] Hemoglobin 11.3(L) 11.5 - 16.0 g/dL LAB HEMETOLOGY METHOD 09/24/2024 9:11 AM EDT [facility] Hematocrit 35.0 35.0 - 47.0 % LAB HEMETOLOGY METHOD 09/24/2024 9:11 AM EDT [facility] MCV 96.2 79.0 - 98.0 FL LAB HEMETOLOGY METHOD 09/24/2024 9:11 AM [facility] MCH 31.0 27.0 - 32.0 pcg LAB HEMETOLOGY METHOD 09/24/2024 9:11 AM EDT [facility] MCHC 32.3 32.0 - 37.0 g/dL LAB HEMETOLOGY METHOD 09/24/2024 9:11 AM EDT [facility] RDW 14.4 11.0 - 15.0 % LAB HEMETOLOGY METHOD 09/24/2024 9:[facility] Platelets 262 130 - 400 K/mcL LAB HEMETOLOGY METHOD 09/24/2024 9:11 [facility] MPV 9.3 7.0 - 11.0 FL LAB HEMETOLOGY METHOD 09/24/2024 9:11 AM EDT [facility] NRBC 0.0 <1.0 % LAB HEMETOLOGY METHOD 09/24/2024 9:11 AM EDT [facility] NRBC Absolute 0.00 <0.10 K/mcL LAB HEMETOLOGY METHOD 09/24/2024 9:11 AM EDT [facility] Blood Venous blood specimen / Unknown Venipuncture / Unknown 09/24/2024 6:13 AM EDT 09/24/2024 8:25 AM EDT us Araceli Maya MD LAB BLOOD ORDERABLES Fin al Result [facility] [address] [place] [address], documented in this encounter Visit Diagnoses Diagnosis Essential (primary) hypertension Unspecified essential hypertension Anemia, unspecified Unspecified osteoarthritis, unspecified site documented in this encounter Care Teams Product Communications Manager Relationship Specialty Start Date End Date Vivian Massey DO [address] [place] [address] PCP - General Internal Medicine 07/21/17 documented as of this encounter
--- OUTSIDE RECORDS SUMMARY | 2025-01-03 13:30 | XMS_ITS | Encounter Summary ---
Author Organization [employer] Address [address] [facility] [address] [place] [address] Care Team Providers Care Die Operator Name Role Phone Vivian Massey DO Primary Care Provider +1- [phone] Encounter Details Date Type Department Care Team (Late st Contact Info) Description 04/20/2022 [facility] [address] [place], [place] [phone] Vivian Massey DO [address] [place], [place] [phone] Social History Tobacco Use Types Packs/Day Years [...] on filedocumented in this encounter Care Teams Die Operator Relationship Specialty Start Date End Date Vivian Massey DO [address] [place], [place] [phone] PCP - General Family Medicine 07/27/20 documented as of this encounter
--- OUTSIDE RECORDS SUMMARY | 2025-01-03 13:30 | XMS_ITS | Encounter Summary ---
Author Organization [facility] Address [address] [place] [address] Care Team Providers Care Concrete Batcher Name Role Phone Vivian Massey DO Primary Care Provider +1- [phone] Encounter Details Date Type Department Care Team (Late st Contact Info) Description 09/16/2024 Lab Requisition [facility] - Main Lab 299 [facility] [place] [address] Araceli Maya MD [address] [phone] Essential (primary) hypertension; Anemia, unspecified; Unspecified osteoarthritis, [...] Fin al Result [facility] [address] [place] [address], * (ABNORMAL) Complete blood count (09/17/2024 6:04 AM EDT) WBC 4.4(L) 4.8 - 10.8 K/mcL LAB HEMETOLOGY METHOD 09/17/2024 9:19 AM EDT [facility] RBC 3.40(L) 3.80 - 4.80 M/mcL LAB HEMETOLOGY METHOD [facility] Hemoglobin 10.7(L) 11.5 - 16.0 g/dL LAB HEMETOLOGY METHOD 09/17/2024 9:19 AM [facility] Hematocrit 33.3(L) 35.0 - 47.0 % LAB HEMETOLOGY METHOD 09/17[facility]2024 [facility] MCV 97.7 79.0 - 98.0 FL LAB HEMETOLOGY METHOD 09/17[facility]2024 [facility] MCH 31.4 27.0 - 32.0 pcg LAB HEMETOLOGY METHOD 09/17/2024 9:19 AM EDT [facility] MCHC 32.1 32.0 - 37.0 g/dL LAB HEMETOLOGY METHOD 09/17[facility]2024 [facility] RDW 14.4 11.0 - 15.0 % LAB HEMETOLOGY METHOD 09/17/2024 9[facility] Platelets 225 130 - 400 K/mcL LAB HEMETOLOGY METHOD 09/17/2024 9[facility] MPV 9.4 7.0 - 11.0 FL LAB HEMETOLOGY METHOD 09/17/2024 9:19 AM EDT [facility] NRBC 0.0 <1.0 % LAB HEMETOLOGY METHOD 09/17/2024 9:19 AM EDT [facility] NRBC Absolute 0.00 <0.10 K/mcL LAB HEMETOLOGY METHOD 09/17/2024 9:19 AM EDT [facility] Blood Venous blood specimen / Unknown Venipuncture / Unknown 09/17/2024 6:04 AM EDT 09/17/2024 8:25 AM EDT us Araceli Maya MD LAB BLOOD ORDERABLES Fin al Result [facility] [address] [place] [address], documented in this encounter Visit Diagnoses Diagnosis Essential (primary) hypertension Unspecified essential hypertension Anemia, unspecified Unspecified osteoarthritis, unspecified site documented in this encounter Care Teams Concrete Batcher Relationship Specialty Start Date End Date Vivian Massey DO [address] [place] [address] PCP - General Internal Medicine 07/21/17 documented as of this encounter
--- OUTSIDE RECORDS SUMMARY | 2025-01-03 13:30 | XMS_ITS | Encounter Summary ---
Author Organization [facility] [address] Address [address] [place] [address] Care Team Providers Care Auditing Coder Name Role Phone Vivian Massey Primary Care Provider +1- [phone] Encounter Details Date Type Department Care Team ([facility] st Contact Info) Description 09/15/2024 Lab Requisition [facility] - Main Lab 299 [facility] [place] [address] Annalisa Kulkarni PA [address] [place] [address] Altered mental status, unspecified Social [...] Urinalysis with reflex microscopic (09/14/2024 11:00 AM [facility]) Specific [place] Urine 1.028 1.003 - 1.030 LAB URINALYSIS - AUTOMATED METHOD 09/15/2024 10:40 AM [facility] pH, Urine 6.0 5.0 - 8.0 pH LAB URINALYSIS - AUTOMATED METHOD 09/15/2024 10:40 AM [facility] Leukocytes, Urine Moderate(A) Negative LAB URINALYSIS - AUTOMATED METHOD 09/15/2024 10:40 AM [facility] Nitrite, Urine Positive(A) Negative LAB URINALYSIS - AUTOMATED METHOD 09/15/2024 10:40 AM [facility] Protein, Urine 30(A) <=Trace mg/dL LAB URINALYSIS - AUTOMATED METHOD 09/15/2024 10:40 AM [facility] Glucose, Urine Negative Negative mg/dL LAB URINALYSIS - AUTOMATED METHOD 09/15/2024 10:40 AM [facility] Ketones, Urine Trace(A) Negative mg/dL LAB URINALYSIS - AUTOMATED METHOD 09/15/2024 10:40 AM [facility] Urobilinogen , Urine 1.0 0.2 - 1.0 mg/dL LAB URINALYSIS - AUTOMATED METHOD 09/15/2024 10:40 AM [facility] Bilirubin, Urine Negative Negative LAB URINALYSIS - AUTOMATED METHOD 09/15/2024 10:40 AM [facility] Blood, Urine Trace(A) Negative LAB URINALYSIS - AUTOMATED METHOD 09/15/2024 10:40 AM [facility] RBC, Urine 2.0 0 - 4 /HPF LAB URINALYSIS - AUTOMATED METHOD 09/15/2024 10:40 AM [facility] WBC, Urine 49.2(H) 0 - 4 /HPF LAB URINALYSIS - AUTOMATED METHOD 09/15/2024 10:40 AM EDT [facility] Squamous Epithelial, Urine 58 0 - 60 /LPF LAB URINALYSIS - AUTOMATED METHOD 09/15/2024 10:40 AM EDT [facility] Crystals, Urine MOD CALCIUM OXALATE /LPF LAB URINALYSIS - AUTOMATED METHOD 09/15/2024 10:40 AM EDT [facility] Bacteria, Urine Many(A) Negative /HPF LAB URINALYSIS - AUTOMATED METHOD 09/15/2024 10:40 AM EDT [facility] Hyaline Casts, Urine 0.0 0 - 3 /LPF LAB URINALYSIS - AUTOMATED METHOD 09/15/2024 10:40 AM EDT [facility] Urine Urine specimen obtained by clean catch procedure / Unknown Non-blood Collection / Unknown 09/14/2024 11:00 AM EDT 09/15/2024 8:28 AM EDT us Annalisa KELLY LAB URINE ORDERABLES Final Resul t [facility] [address] [place] [address], * (ABNORMAL) Culture urine (09/14/2024 11:00 AM EDT) Culture, Urine >100,000 CFU/mL Klebsiella pneumoniae ssp pneumoniae(A) RADHAMES 09/18/2024 7:38 AM EDT [facility] Comment: This is an edited result. Previous organism was Gram negative bacilli on 09/16/2024 at 1010 EDT. Culture, Urine 50,000-100,00 0 CFU/mL Aerococcus urinae(A) RADHAMES 09/18/2024 7:38 AM EDT [facility] Comment: Susceptibility testing not routinely [...] MICROBIOLOGY - GENERAL ORDER BABAR Final Result [facility] [address] [place] [address], documented in this encounter Visit Diagnoses Diagnosis Altered mental status, unspecified documented in this encounter Care Teams Auditing Coder Relationship Specialty Start Date End Date Vivian Massey DO [address] [place] [address] PCP - General Internal Medicine 07/21/17 documented as of this encounter
--- OUTSIDE RECORDS SUMMARY | 2025-01-03 13:30 | XMS_ITS | Encounter Summary ---
Author Organization [facility] Address [address] [place] [address] Care Team Providers Care Manager Recovery Name Role Phone Vivian Massey Primary Care Provider +1- [phone] Encounter Details Date Type Department Care Team ([facility] st Contact Info) Description 09/18/2024 Lab Requisition [facility] - Main Lab [address] [place] [address] Araceli Maya MD [address] [address] Hypokalemia Social History Tobacco Use Types Packs/Day [...] LAB CHEMISTRY METHOD 09/18/2024 8:19 AM EDT [facility] Potassium 3.6 3.5 - 5.5 [...] al Result [facility] [address] [place] [address], documented in this encounter Visit Diagnoses Diagnosis Hypokalemia Hypopotassemia documented in this encounter Care Teams Manager Recovery Relationship Specialty Start Date End Date Vivian Massey DO [address] [place], [place] PCP - General Internal Medicine 07/21/17 documented as of this encounter
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
--- OUTSIDE RECORDS SUMMARY | 2025-01-03 13:30 | XMS_ITS | Encounter Summary ---
Author Organization [facility] Address [address] [place] [address] Care Team Providers Care Statement Clerks Manager Name Role Phone Vivian Massey Primary Care Provider [phone] Encounter Details Date Type Department Care Team ([facility] st Contact Info) Description 09/25/2024 Lab Requisition [facility] - Main Lab [address] [place] [address] Araceil Maya MD [address] [address] Hypokalemia Social History Tobacco Use Types Packs/Day [...] LAB CHEMISTRY METHOD 09/26/2024 9:09 AM EDT [facility] Potassium 3.6 3.5 - 5.5 [...] al Result [facility] [address] [place] [address], documented in this encounter Visit Diagnoses Diagnosis Hypokalemia Hypopotassemia documented in this encounter Care Teams Statement Clerks Manager Relationship Specialty Start Date End Date Vivian Massey DO [address] [place] [address] PCP - General Internal Medicine 07/21/17 documented as of this encounter
--- OUTSIDE RECORDS SUMMARY | 2025-01-03 13:30 | XMS_ITS | Encounter Summary ---
Author Organization [employer] Address [address] [facility] 7t [place] [address] Care Team Providers Care Quill Skinner Name Role Phone Vivian Massey DO Primary Care Provider [phone] Reason for Visit * Reason Onset Date Comments Nurse Triage 08/22/2023 Encounter Details Date Type Department Care Team ([facility] st Contact Info) Description 08/22/2023 Telephone [facility] [address] [place] [address] Vivian Massey DO [address] [place], [place] [phone] Nurse Triage Social History Tobacco Use Types [...] documented as of this encounter Care Teams Quill Skinner Relationship Specialty Start Date End Date Vivian Massey DO [address] [place] [address] PCP - General Family Medicine 07/27/20 documented as of this encounter
--- OUTSIDE RECORDS SUMMARY | 2025-01-03 13:30 | XMS_ITS | Clinical Summary ---
Author Organization [facility] Address [address] [place] [address] Care Team Providers Care Material Scheduler Name Role Phone Vidal Pinzon MD Primary Care Provider [phone] Medications Medication Sig Dispensed Refills Start Date [...] age to complete this topic Care Teams Material Scheduler Relationship Specialty Start Date End Date Vidal Pinzon MD [address] [place] [address] PCP - General Family Medicine 02/18/20
--- OUTSIDE RECORDS SUMMARY | 2025-01-03 13:30 | XMS_ITS | Clinical Summary ---
Author Organization [facility] Address [address] [place] [address] Phone Care Team Providers Care Ferry Hand Name Role Phone JoaquimVivian aguilar Primary Care Provider [phone] Medications Mounjaro 5 mg/0.5 mL injection INJECT ONE PEN (=5MG) SUBCUTANEOUSLY ONCE A WEEK DIRECTED 2 mL 12/25/19 25 Active Mounjaro 5 mg/0.5 mL injection INJECT ONE PEN (=5MG) SUBCUTANEOUSLY ONCE A WEEK DIRECTED 2 mL 11/09/19 25 2024 Discontinued Encounters Date Type Department Care Team Description 10/28/2024 Lab Requisition [facility] [address] [place] [phone] Araceli Maya MD Unspecified osteoarthritis, unspecified site; Essential (primary) hypertension; Anemia, unspecified 10/21/2024 Lab Requisition [facility] [address] [place] [phone] Araceli Maya MD Essential (primary) hypertension; Anemia, unspecified; Unspecified osteoarthritis, unspecified site 10/14/2024 Lab Requisition [facility] [address] [place] [phone] Araceli Maya MD Essential (primary) hypertension; Anemia, unspecified; Unspecified osteoarthritis, unspecified site 10/07/2024 Lab Requisition [facility] [address] [place] [address] Araceli Maya MD Essential (primary) hypertension; Anemia, unspecified; Unspecified osteoarthritis, unspecified site 10/07/2024 Lab Requisition [facility] - Main Lab [address] [place] [address] Araceli Maya MD Urinary tract infection, site not specified 10/02/2024 Lab Requisition [facility] [address] [place] [address] Araceli Maya MD Hypokalemia from Last 3 Months Immunizations Immunization Administration Dates Next Due Moderna SARS-CoV-2 COVID-19, mRNA, LNP-S, preservative free 07/13/2020,06/15/2020 Surgical History Surgery Date Site/Laterality Comments BREAST REDUCTION 1997 PROCEDURE: [place] BREAST REDUCTION SECTION 1982 PROCEDURE: HISTORICAL BLADDER SUSPENSION PROCEDURE: HISTORICAL BLADDER SUSPENSION; COMMENT: Marcus Corin operation GASTRIC BYPASS 2005 PROCEDURE: AK GASTRIC RSTCV W/BYP W/SM INT RCNSTJ LIMIT [...] series) 2023 Depression Screening 03/13/2024 COVID-19 Vaccine ( season) 2024 07/13/2020, 06/15/2020 [...] PANEL Routine 10/03/2024 5:51 AM EDT Hypokalemia from Last 3 Months Results * (ABNORMAL) Complete blood count (10/22/2024 6:15 AM EDT) Only the most recent of3 [...] LAB HEMETOLOGY METHOD 10/22/2024 9:10 AM EDT [facility] RDW 14.6 11.0 - 15.0 % LAB HEMETOLOGY METHOD 10/22/2024 9:10 AM EDT [facility] Platelets 254 130 - 400 K/mcL LAB HEMETOLOGY METHOD 10/22/2024 9:10 AM EDT [facility] MPV 8.9 7.0 - 11.0 FL LAB HEMETOLOGY METHOD 10/22/2024 9:10 AM EDT [facility] NRBC 0.0 <1.0 % LAB HEMETOLOGY METHOD 10/22/2024 9:10 AM EDT [facility] NRBC Absolute 0.00 <0.10 K/mcL [facility] 10/22/2024 9:10 AM EDT [facility] Blood Venous blood specimen / Unknown Venipuncture / Unknown 10/22/2024 6:15 AM EDT 10/22/2024 8:58 AM EDT Araceli Maya MD LAB BLOOD ORDERABLES Fin al Result [facility] [address] [place] [address], * (ABNORMAL) Basic metabolic panel (10/22/2024 6:15 AM EDT) Only the most recent of4 resultswithin the time period is included. Sodium 137 133 - 145 mmol/L LAB CHEMISTRY METHOD 10/22/2024 9:29 AM EDT [facility] Potassium 3.6 3.5 - 5.5 mmol/L LAB CHEMISTRY METHOD 10/22/2024 9:29 AM EDT [facility] Chloride 101 96 - [...] 73m2 LAB CHEMISTRY METHOD 10/22/2024 9:29 AM [facility] Comment:Calculation based on the Chronic Kidney Disease Epidemiology Collaboration (CKD-EPI) equation refit without adjustment for race. BUN/Creatinine Ratio 15.7 LAB CHEMISTRY METHOD 10/22/2024 9:29 AM [facility] Calcium 8.5 8.5 - 10.5 mg/dL LAB CHEMISTRY METHOD 10/22/2024 9:29 AM [facility] Blood Venous blood specimen / Unknown Venipuncture / Unknown 10/22/2024 6:15 AM EDT 10/22/2024 8:58 AM EDT us Araceli Maya MD LAB BLOOD ORDERABLES Fin al Result [facility] [address] [place] [address], * (ABNORMAL) Urinalysis with reflex microscopic (10/06/2024 8:10 AM EDT) Specific Ringle Urine 1.022 1.003 - 1.030 LAB URINALYSIS [...] 10/07/2024 12:13 PM [facility] Squamous Epithelial, Urine 70(H) 0 - 60 /LPF LAB URINALYSIS - AUTOMATED METHOD 10/07/2024 12:13 PM EDT [facility] Non-Squamous Epithelial, Urine 2-5 TRANSITIONAL EPI /LPF LAB URINALYSIS - AUTOMATED METHOD 10/07/2024 12:13 PM EDT [facility] Crystals, Urine MOD CALCIUM OXALATE /LPF LAB URINALYSIS - AUTOMATED METHOD 10/07/2024 12:13 PM EDT [facility] Bacteria, Urine Moderate(A) Negative /HPF LAB URINALYSIS - AUTOMATED METHOD 10/07/2024 12:13 PM EDT [facility] Hyaline Casts, Urine 1.6 0 - 3 /LPF LAB URINALYSIS - AUTOMATED METHOD 10/07/2024 12:13 PM EDT [facility] Urine Urine specimen obtained by clean catch procedure / Unknown Non-blood Collection / Unknown 10/06/2024 8:10 AM EDT 10/07/2024 11:17 AM EDT us Araceli Maya MD LAB URINE ORDERABLES Fin al Result [facility] [address] [place] [address], * (ABNORMAL) Culture urine (10/06/2024 8:10 AM EDT) Culture, Urine >=100,000 CFU/mL Escherichia coli(A) RADHAMES 10/10/2024 7:49 AM EDT [facility] Comment: This is an edited result. Previous organism was Gram negative bacilli on 10/08/2024 at 0843 EDT. Culture, Urine 10,000-49,000 CFU/mL Morganella morganii ssp morganii(A) RADHAMES 10/10/2024 7:49 AM EDT [facility] Comment: The organism value [...] - GENER AL ORDERABLES Final Result [facility] [address] [place] [address], from Last 3 Months Insurance MEDICAID - [place] [employer] MEDICARE Care Teams Ferry Hand Relationship Specialty Start Date End Date Vivian Massey DO [address] [place], [place] PCP - General Internal Medicine 07/21/17
--- OUTSIDE RECORDS SUMMARY | 2025-01-03 13:31 | XMS_ITS | Encounter Summary ---
Author Organization [employer] Address [address] [facility] 7t [place] [address] Care Team Providers Care Community Resource Officer Name Role Phone Vivian Massey DO Primary Care Provider [phone] Encounter Details Date Type Department Care Team ([facility] st Contact Info) Description 08/15/2023 Orders Only [facility] [address] [place] [address] Vivian Massey DO [address] [place], [place] [phone] Social History Tobacco Use Types Packs/Day Years [...] documented as of this encounter Care Teams Community Resource Officer Relationship Specialty Start Date End Date Vivian Massey DO [address] [place] [address] PCP - General Family Medicine 07/27/20 documented as of this encounter
--- OUTSIDE RECORDS SUMMARY | 2025-01-03 13:31 | XMS_ITS | Encounter Summary ---
Author Organization [facility] Address [address] [place] [address] Care Team Providers Care Vice President Fixed Income Name Role Phone Vivian Massey Primary Care Provider [phone] Encounter Details Date Type Department Care Team ([facility] st Contact Info) Description 09/05/2024 Lab Requisition [facility] - Main Lab [address] [place] [address] Araceli Maya MD [address] [address] Hypokalemia Social History Tobacco Use Types Packs/Day [...] LAB CHEMISTRY METHOD 09/06/2024 7:53 AM EDT [facility] Potassium 3.6 3.5 - [...] al Result [facility] [address] [place] [address], documented in this encounter Visit Diagnoses Diagnosis Hypokalemia Hypopotassemia documented in this encounter Care Teams Vice President Fixed Income Relationship Specialty Start Date End Date Vivian Massey DO [address] [place] [address] PCP - General Internal Medicine 07/21/17 documented as of this encounter
--- OUTSIDE RECORDS SUMMARY | 2025-01-03 13:31 | XMS_ITS | Encounter Summary ---
Author Organization [facility] Address [address] [place] [address] Care Team Providers Care Special Agent In Charge Name Role Phone Vivian Massey DO Primary Care Provider [phone] Encounter Details Date Type Department Care Team (Late st Contact Info) Description 08/03/2024 Lab Requisition [facility] - Main Lab [address] [facility] [place] [address] Araceli Maya MD [address] [phone] Essential (primary) hypertension; Anemia, unspecified; Unspecified osteoarthritis, [...] Fin al Result [facility] [address] [place] [address], * (ABNORMAL) Complete blood count (08/06/2024 6:57 AM EDT) WBC 3.3(L) 4.8 - 10.8 K/mcL LAB HEMETOLOGY METHOD 08/06/2024 11:00 AM EDT [facility] RBC 3.70(L) 3.80 - 4.80 [...] [place] LAB [facility] 31.2 27.0 - 32.0 pcg LAB HEMETOLOGY METHOD [facility]24 [facility] MCHC 32.7 32.0 - [...] LAB HEMETOLOGY METHOD 08/06/2024 11:00 AM EDT [facility] NRBC 0.0 <1.0 % LAB HEMETOLOGY METHOD 08/06/2024 11:00 AM EDT [facility] NRBC Absolute 0.00 <0.10 K/mcL LAB HEMETOLOGY METHOD 08/06/2024 11:00 AM EDT [facility] Blood Venous blood specimen / Unknown Venipuncture / Unknown 08/06/2024 6:57 AM EDT 08/06/2024 10:59 AM EDT us Araceli Maya MD LAB BLOOD ORDERABLES Fin al Result [facility] [address] [place] [address], documented in this encounter Visit Diagnoses Diagnosis Essential (primary) hypertension Unspecified essential hypertension Anemia, unspecified Unspecified osteoarthritis, unspecified site documented in this encounter Care Teams Special Agent In Charge Relationship Specialty Start Date End Date Vivian Massey DO [address] [place] [address] PCP - General Internal Medicine 07/21/17 documented as of this encounter
--- OUTSIDE RECORDS SUMMARY | 2025-01-03 13:31 | XMS_ITS | Encounter Summary ---
Author Organization [employer] Address [address] [facility] 7t [place] [address] Care Team Providers Care Molasses And Caramel Operator Name Role Phone Vivian Massey DO Primary Care Provider + [phone] Reason for Visit * Reason Onset Date Comments Durable Medical Equipment 02/14/2023 Encounter Details Date Type Department Care Team ([facility] st Contact Info) Description 02/14/2023 Telephone [facility] MEDICINE [address] [place] [address] Vivian Massey DO [address] [place], [place] [phone] Durable Medical Equipment Social History Tobacco Use [...] documented as of this encounter Care Teams Molasses And Caramel Operator Relationship Specialty Start Date End Date Vivian Massey DO [address] [place] [address] PCP - General Family Medicine 07/27/20 documented as of this encounter
--- OUTSIDE RECORDS SUMMARY | 2025-01-03 13:31 | XMS_ITS | Encounter Summary ---
Author Organization [facility] Address [address] [place] [address] Care Team Providers Care Log Operations Coordinator Name Role Phone Vivian Massey DO Primary Care Provider [phone]- [phone] Encounter Details Date Type Department Care Team (Late st Contact Info) Description 08/26/[address] [facility] - Main Lab 299 [facility] [place] [address] Araceli Maya MD [address] [phone] Essential (primary) hypertension; Anemia, unspecified; Unspecified osteoarthritis, [...] Complete blood count (08/27/2024 6:06 AM EDT) [facility] WBC 3.2(L) 4.8 - 10.8 K/mcL LAB HEMETOLOGY METHOD 08/27/2024 8:[address] [facility] LAB RBC 3.80 3.80 - 4.80 M/mcL LAB HEMETOLOGY METHOD 08/27/2024 8:[address] [facility] LAB Hemoglobin 11.8 11.5 - 16.0 g/dL LAB HEMETOLOGY METHOD 08/27/2024 8:[address] [facility] LAB Hematocrit 36.4 35.0 - 47.0 % LAB HEMETOLOGY METHOD 08/27/2024 8:[address] [facility] LAB MCV 95.5 79.0 - 98.0 FL LAB HEMETOLOGY METHOD 08/27/2024 8:[address] [facility] LAB MCH 31.0 27.0 - 32.0 pcg LAB HEMETOLOGY METHOD 08/27/2024 8:[address] [facility] LAB MCHC 32.4 32.0 - 37.0 g/dL LAB HEMETOLOGY METHOD 08/27/2024 8:[address] [facility] LAB RDW 14.0 11.0 - 15.0 % LAB HEMETOLOGY METHOD 08/27/2024 8:[address] [facility] LAB Platelets 259 130 - 400 K/mcL LAB HEMETOLOGY METHOD 08/27/2024 8:[address] [facility] MPV 9.2 7.0 - 11.0 FL LAB HEMETOLOGY METHOD 08/27/2024 8:[address] [facility] NRBC 0.0 <1.0 % LAB HEMETOLOGY METHOD 08/27/2024 8:[address] [facility] LAB NRBC Absolute 0.00 <0.10 K/mcL LAB HEMETOLOGY METHOD 08/27/2024 8:[address] [facility] Blood Venous blood specimen / Unknown Venipuncture / Unknown 08/27/2024 6:06 AM EDT 08/27/2024 7:07 AM EDT us Araceli Maya MD LAB BLOOD ORDERABLES Fin al Result [facility] LAB [address] [place] [address], [place] [phone] * (ABNORMAL) Basic metabolic panel (08/27/2024 6:06 AM EDT) Sodium 137 133 - 145 mmol/L LAB CHEMISTRY METHOD 08/27/2024 8:[address] [facility] Potassium 3.9 3.5 - 5.5 mmol/L LAB CHEMISTRY METHOD 08/27/2024 8:[address] [facility] Chloride 97 96 - 110 mmol/L LAB CHEMISTRY METHOD 08/27/2024 8:[address] [facility] CO2 34(H) 21 - 32 mmol/L LAB CHEMISTRY METHOD 08/27/2024 8:[address] [facility] Anion Gap 6 3 - 11 LAB CHEMISTRY METHOD 08/27/2024 8:[address] [facility] Glucose 83 70 - 100 mg/dL LAB CHEMISTRY METHOD 08/27/2024 8:[address] [facility] BUN 13 5 - 25 mg/dL LAB CHEMISTRY METHOD 08/27/2024 8:[address] [facility] Creatinine 0.86 0.50 - 1.10 mg/dL LAB CHEMISTRY METHOD 08/27/2024 8:[address] [facility] LAB eGFR 70 >=60 mL/min/1. 73m2 LAB CHEMISTRY METHOD 08/27/2024 8:42 AM EDT [facility] Comment:Calculation based on the Chronic Kidney Disease Epidemiology Collaboration (CKD-EPI) equation refit without adjustment for race. BUN/Creatinine Ratio 15.1 LAB CHEMISTRY METHOD 08/27/2024 8:42 AM EDT [facility] Calcium 8.5 8.5 - 10.5 mg/dL LAB CHEMISTRY METHOD 08/27/2024 8:42 AM EDT [facility] Blood Venous blood specimen / Unknown Venipuncture / Unknown 08/27/2024 6:06 AM EDT 08/27/2024 7:07 AM EDT us Araceli Maya MD LAB BLOOD ORDERABLES Fin al Result [facility] [address] [place] [address], documented in this encounter Visit Diagnoses Diagnosis Essential (primary) hypertension Unspecified essential hypertension Anemia, unspecified Unspecified osteoarthritis, unspecified site documented in this encounter Care Teams Log Operations Coordinator Relationship Specialty Start Date End Date Vivian Massey DO [address] [place] [address] PCP - General Internal Medicine 07/21/17 documented as of this encounter
--- OUTSIDE RECORDS SUMMARY | 2025-01-03 13:31 | XMS_ITS | Encounter Summary ---
Author Organization [facility] Address [address] [place] [address] Care Team Providers Care Relations Mgr Name Role Phone Vivian Massey DO Primary Care Provider +1- [phone] Encounter Details Date Type Department Care Team (Late st Contact Info) Description 07/22/2024 Lab Requisition [facility] - Main Lab 299 [facility] [place] [address] Araceli Maya MD [address] [phone] Essential (primary) hypertension; Anemia, unspecified; Unspecified osteoarthritis, [...] mmol/L LAB CHEMISTRY METHOD 07/23/2024 10:[address] [facility] Potassium 3.6 3.5 - 5.5 mmol/L LAB CHEMISTRY METHOD 07/23/2024 10:[address] [facility] Chloride 92(L) 96 - 110 mmol/L LAB CHEMISTRY METHOD 07/23/2024 10:[address] [facility] CO2 31 21 - 32 mmol/L LAB CHEMISTRY METHOD 07/23/2024 10:[address] [facility] Anion Gap 7 3 - 11 LAB CHEMISTRY METHOD 07/23/2024 10:[address] [facility] Glucose 82 70 - 100 mg/dL LAB CHEMISTRY METHOD 07/23/2024 10:[address] [facility] BUN 19 5 - 25 mg/dL LAB CHEMISTRY METHOD 07/23/2024 10:[address] [facility] Creatinine 0.84 0.50 - 1.10 mg/dL LAB CHEMISTRY METHOD 07/23/2024 10:[address] [facility] eGFR 72 >=60 mL/min/1. 73m2 LAB CHEMISTRY METHOD 07/23/2024 10:[address] [facility] Comment:Calculation based on the Chronic Kidney Disease Epidemiology Collaboration (CKD-EPI) equation refit without adjustment for race. BUN/Creatinine Ratio 22.6 LAB CHEMISTRY METHOD 07/23/2024 10:[address] [facility] Calcium 8.8 8.5 - 10.5 mg/dL LAB CHEMISTRY METHOD 07/23/2024 10:[address] [facility] Blood Venous blood specimen / Unknown Venipuncture / Unknown 07/23/2024 7:15 AM EDT 07/23/2024 10:01 AM EDT us Araceli Maya MD LAB BLOOD ORDERABLES Fin al Result [facility] [address] [place] [address], * (ABNORMAL) Complete blood count (07/23/2024 7:15 AM EDT) WBC 4.5(L) 4.8 - 10.8 K/mcL LAB HEMETOLOGY METHOD 07/23/2024 10:27 AM EDT [facility] RBC 3.70(L) 3.80 - 4.80 M/mcL LAB HEMETOLOGY METHOD 07/23/2024 10:27 AM EDT [facility] Hemoglobin 11.5 11.5 - 16.0 g/dL LAB HEMETOLOGY METHOD 07/23/2024 10:27 AM EDT [facility] Hematocrit 35.2 35.0 - 47.0 % LAB HEMETOLOGY METHOD 07/23/2024 10:27 AM EDT [facility] MCV 95.7 79.0 - 98.0 FL LAB HEMETOLOGY METHOD 07/23/2024 10:27 AM EDT [facility] MCH 31.3 27.0 - 32.0 pcg LAB HEMETOLOGY METHOD 07/23/2024 10:27 AM EDT [facility] MCHC 32.7 32.0 - 37.0 g/dL LAB HEMETOLOGY METHOD 07/23/2024 10:27 AM EDT [facility] RDW 13.5 11.0 - 15.0 % LAB HEMETOLOGY [facility] 287 130 - 400 K/mcL LAB HEMETOLOGY METHOD 07/23/2024 10:27 AM EDT [facility] MPV 9.3 7.0 - 11.0 FL LAB HEMETOLOGY METHOD 07/23/2024 10:27 AM EDT [facility] NRBC 0.0 <1.0 % LAB HEMETOLOGY METHOD 07/23/2024 10:27 AM EDT [facility] NRBC Absolute 0.00 <0.10 K/mcL LAB HEMETOLOGY METHOD 07/23/2024 10:27 AM EDT [facility] Blood Venous blood specimen / Unknown Venipuncture / Unknown 07/23/2024 7:15 AM EDT 07/23/2024 10:01 AM EDT us Araceli Maya MD LAB BLOOD ORDERABLES Fin al Result [facility] [address] [place] [address], documented in this encounter Visit Diagnoses Diagnosis Essential (primary) hypertension Unspecified essential hypertension Anemia, unspecified Unspecified osteoarthritis, unspecified site documented in this encounter Care Teams Relations Mgr Relationship Specialty Start Date End Date Vivian Massey DO [address] [place] [address] PCP - General Internal Medicine 07/21/17 documented as of this encounter
--- OUTSIDE RECORDS SUMMARY | 2025-01-03 13:31 | XMS_ITS | Encounter Summary ---
Author Organization [facility] Address [address] [place] [address] Care Team Providers Care Assisted Living Manager Name Role Phone Vivian Massey DO Primary Care Provider +1- [phone] Encounter Details Date Type Department Care Team (Late st Contact Info) Description 08/19/2024 Lab Requisition [facility] - Main Lab 299 [facility] [place] [address] Araceli Maya MD [address] [phone] Essential (primary) hypertension; Anemia, unspecified; Unspecified osteoarthritis, [...] Complete blood count (08/20/2024 6:15 AM EDT) [facility] Signature WBC 3.9(L) 4.8 - 10.8 [...] al Result [facility] [address] [place] [address], * (ABNORMAL) Basic metabolic panel (08/20/2024 6:15 [...] LAB CHEMISTRY METHOD 08/20/2024 8:42 AM EDT [facility] Comment:Calculation based on the Chronic Kidney Disease Epidemiology Collaboration (CKD-EPI) equation refit without adjustment for race. BUN/Creatinine Ratio 19.7 LAB CHEMISTRY METHOD 08/20/2024 8:42 AM EDT [facility] Calcium 8.9 8.5 - 10.5 mg/dL LAB CHEMISTRY METHOD 08/20/2024 8:42 AM EDT [facility] Blood Venous blood specimen / Unknown Venipuncture / Unknown 08/20/2024 6:15 AM EDT 08/20/2024 8:00 AM EDT us Araceli Maya MD LAB BLOOD ORDERABLES Fin al Result [facility] [address] [place] [address], documented in this encounter Visit Diagnoses Diagnosis Essential (primary) hypertension Unspecified essential hypertension Anemia, unspecified Unspecified osteoarthritis, unspecified site documented in this encounter Care Teams Assisted Living Manager Relationship Specialty Start Date End Date Vivian Massey DO [address] [place] [address] PCP - General Internal Medicine 07/21/17 documented as of this encounter
--- OUTSIDE RECORDS SUMMARY | 2025-01-03 13:31 | XMS_ITS | Encounter Summary ---
Author Organization [facility] Address [address] [place] [address] Care Team Providers Care Operating Room Rn Name Role Phone Vivian Massey DO Primary Care Provider +1- [phone] Encounter Details Date Type Department Care Team (Late st Contact Info) Description 08/12/[address] [facility] - Main Lab 299 [facility] [place] [address] Araceil Maya MD [address] [phone] Essential (primary) hypertension; Anemia, unspecified; Unspecified osteoarthritis, [...] mmol/L LAB CHEMISTRY METHOD 08/13/2024 10:09 AM [facility] Potassium 3.7 3.5 - 5.5 mmol/L LAB CHEMISTRY METHOD 08/13/2024 10:09 AM [facility] Chloride 99 96 - 110 mmol/L LAB CHEMISTRY METHOD 08/13/2024 10:09 AM [facility] CO2 33(H) 21 - 32 mmol/L LAB CHEMISTRY METHOD 08/13/2024 10:09 AM [facility] Anion Gap 3 3 - 11 LAB CHEMISTRY METHOD 08/13/2024 10:09 AM [facility] Glucose 80 70 - 100 mg/dL LAB CHEMISTRY METHOD 08/13/2024 10:09 AM [facility] BUN 12 5 - 25 mg/dL LAB CHEMISTRY METHOD 08/13/2024 10:09 AM [facility] Creatinine 0.76 0.50 - 1.10 mg/dL LAB CHEMISTRY METHOD 08/13/2024 10:09 AM [facility] LAB eGFR 81 >=60 mL/min/1. 73m2 LAB CHEMISTRY METHOD 08/13/2024 10:09 AM [facility] LAB Comment:Calculation based on the Chronic Kidney Disease Epidemiology Collaboration (CKD-EPI) equation refit without adjustment for race. BUN/Creatinine Ratio 15.8 LAB CHEMISTRY METHOD 08/13/2024 10:09 AM [facility] Calcium 9.0 8.5 - 10.5 mg/dL LAB CHEMISTRY METHOD 08/13/2024 10:09 AM [facility] Blood Venous blood specimen / Unknown Venipuncture / Unknown 08/13/2024 6:05 AM EDT 08/13/2024 9:23 AM EDT Araceli Maya MD LAB BLOOD ORDERABLES Fin al Result [facility] LAB [address] [place] [address], * (ABNORMAL) Complete blood count (08/13/2024 6:05 AM EDT) WBC 3.5(L) 4.8 - 10.8 K/mcL LAB HEMETOLOGY METHOD 08/13/2024 9:52 AM EDT [facility] RBC 3.50(L) 3.80 - 4.80 M/mcL LAB HEMETOLOGY METHOD [facility]24 [facility] Hemoglobin 10.9(L) 11.5 - 16.0 g/dL LAB HEMETOLOGY METHOD 08/13/2024 9:52 AM [facility] Hematocrit 33.8(L) 35.0 - 47.0 % LAB HEMETOLOGY METHOD 08/13/2024 9:[facility] MCV 95.8 79.0 - 98.0 FL LAB HEMETOLOGY METHOD 08/13/2024 9:52 AM [facility] MCH 30.9 27.0 - 32.0 pcg LAB HEMETOLOGY METHOD 08/13/2024 9:52 AM EDT [facility] MCHC 32.2 32.0 - 37.0 g/dL LAB HEMETOLOGY METHOD 08/13/2024 9:[facility] RDW 14.1 11.0 - 15.0 % LAB HEMETOLOGY METHOD 08/13/2024 9:52 [facility] Platelets 224 130 - 400 K/mcL LAB HEMETOLOGY METHOD 08/13/2024 9:52 [facility] MPV 9.0 7.0 - 11.0 FL LAB HEMETOLOGY METHOD 08/13/2024 9:52 AM EDT [facility] NRBC 0.0 <1.0 % LAB HEMETOLOGY METHOD 08/13/2024 9:52 AM EDT [facility] NRBC Absolute 0.00 <0.10 K/mcL LAB HEMETOLOGY METHOD 08/13/2024 9:52 AM EDT [facility] Blood Venous blood specimen / Unknown Venipuncture / Unknown 08/13/2024 6:05 AM EDT 08/13/2024 9:22 AM EDT us Araceli Maya MD LAB BLOOD ORDERABLES Fin al Result [facility] [address] [place] [address], documented in this encounter Visit Diagnoses Diagnosis Essential (primary) hypertension Unspecified essential hypertension Anemia, unspecified Unspecified osteoarthritis, unspecified site documented in this encounter Care Teams Operating Room Rn Relationship Specialty Start Date End Date Vivian Massey DO [address] [place], [place] PCP - General Internal Medicine 07/21/17 documented as of this encounter
--- OUTSIDE RECORDS SUMMARY | 2025-01-03 13:31 | XMS_ITS | Encounter Summary ---
Author Organization [facility] Address [address] [place] [address] Care Team Providers Care Ship'S Surveyor Name Role Phone Vivian Massey Primary Care Provider +1- [phone] Encounter Details Date Type Department Care Team ([facility] st Contact Info) Description 10/02/2024 Lab Requisition [facility] - Main Lab [address] [place] [address] Araceli Maya MD [address] [address] Hypokalemia Social History Tobacco Use Types Packs/Day [...] LAB CHEMISTRY METHOD 10/03/2024 8:28 AM EDT [facility] Potassium 3.8 3.5 - 5.5 mmol/L LAB CHEMISTRY METHOD 10/03/2024 8:28 AM [facility] LAB Chloride 101 96 - 110 mmol/L LAB CHEMISTRY METHOD 10/03/2024 8:28 AM [facility] LAB CO2 34(H) 21 - 32 mmol/L LAB CHEMISTRY METHOD 10/03/2024 8:28 AM [facility] LAB Anion Gap 3 3 - 11 LAB CHEMISTRY METHOD 10/03/2024 8:28 AM [facility] LAB Glucose 79 70 - 100 mg/dL LAB CHEMISTRY METHOD 10/03/2024 8:28 AM [facility] LAB BUN 15 5 - 25 mg/dL LAB CHEMISTRY METHOD 10/03/2024 8:28 AM [facility] LAB Creatinine 0.88 0.50 - 1.10 mg/dL LAB CHEMISTRY METHOD 10/03/2024 8:28 AM [facility] LAB eGFR 68 >=60 mL/min/1. 73m2 LAB CHEMISTRY METHOD 10/03/2024 8:28 AM [facility] LAB Comment:Calculation based on the Chronic Kidney Disease Epidemiology Collaboration (CKD-EPI) equation refit without adjustment for race. BUN/Creatinine Ratio 17.0 LAB CHEMISTRY METHOD 10/03/2024 8:28 AM [facility] LAB Calcium 9.1 8.5 - 10.5 mg/dL LAB CHEMISTRY METHOD 10/03/2024 8:28 AM [facility] LAB Blood Venous blood specimen / Unknown Venipuncture / Unknown 10/03/2024 5:51 AM EDT 10/03/2024 7:39 AM EDT us Araceli Maya MD LAB BLOOD ORDERABLES Fin al Result [facility] [address] [place] [address], documented in this encounter Visit Diagnoses Diagnosis Hypokalemia Hypopotassemia documented in this encounter Care Teams Ship'S Surveyor Relationship Specialty Start Date End Date Vivian Massey DO [address] [place] [address] PCP - General Internal Medicine 07/21/17 documented as of this encounter
--- OUTSIDE RECORDS SUMMARY | 2025-01-03 13:31 | XMS_ITS | Clinical Summary ---
Author Organization [facility] Address [address] [address] Phone Care Team Providers Care Memory Care Director Name Role Phone Clementine Masseyfer Primary Care Provider [phone] Social History Tobacco Use Types Packs/Day Years [...] 2023 INFLUENZA VACCINE (#1) 2024 COVID-19 VACCINE ( - 2024-2 6 season) 2024 HEPATITIS A VACCINES Aged Out [...] topic Medical Devices Not on file Insurance [facility] MEDICARE REPLACEMENT MEDICARE PART A & B [facility] MEDICARE REPLACEMENT MEDICARE PART A & B [facility] MEDICARE REPLACEMENT MEDICARE PART A & B [facility] [address] [place] [address] [facility] MEDICARE REPLACEMENT MEDICARE PART A & B [facility] [address] [place] [address] [facility] MEDICARE REPLACEMENT MEDICARE PART A & [facility] MEDICARE REPLACEMENT MEDICARE PART A & B [facility] Care Teams Memory Care Director Relationship Specialty Start Date End Date Viivan Massey DO [address] [place] [address] PCP - General Family Medicine 01/09/23 Additional Source Comments The information contained in this document represents components of the legal health record. It is not the complete legal health record.[facility]
--- OUTSIDE RECORDS SUMMARY | 2025-01-03 13:31 | XMS_ITS | Encounter Summary ---
Author Organization [employer] Address [address] [facility] 7t [place] [address] Care Team Providers Care Seat Trimmer Name Role Phone Vivian Massey DO Primary Care Provider + [phone] Reason for Visit * Reason Comments Care Coordination CHW outreach for SDO H housing search-referral completed Encounter Details Date Type Department Care Team (Latest Contact Info) Description 01/03/2025 Patient Outreach [facility] MEDICINE [address] [place] [address] Vivian Massey DO [address] [place], [place] [phone] Care Coordination (CHW outreach for SDOH housing search-referral completed ) Social History Tobacco Use Types Packs/Day Years [...] got money to buy more: Often true 10/24/ 2025 Within the past 12 months,th e food [...] AM EDT documented as of this encounter Functional Status * Over the past 2 weeks, how often have you been bothered by any of the following problems? Question Answer Date of Assessment Author Patient Health Questionnaire -2 Score 2 01/03/2025 10:29 AM JERZYT Debbie Sosa [place] * Little interest or pleasure in doing things Answer Date of Assessment Author Several days 01/03/2025 10:29 AM JERZYT Debbie Sosa MA * Feeling down, depressed, or hopeless Answer Date of Assessment Author Several days 01/03/2025 10:29 AM JERZYT Debbie Sosa MA * Trouble falling or staying asleep, [...] 01/03/2025 10:29 AM Debbie Maher MA * Thoughts that you would be better off or hurting yourself in some way Answer Date of Assessment Author Not at all 01/03/2025 10:29 AM Debbie Maher MA * Patient Health Questionnaire-9 Score Answer Date of Assessment Author 5 01/03/2025 10:29 AM Debbie Maher MA * How difficult have these problems made it for you to do your work, take care of things at home, or get along with other people? Answer Date of Assessment Author Not difficult at all 01/03/2025 10:29 AM Debbie Wood MA documented as of this encounter Progress Notes * Wally Castro - 01/03/2025 11:31 AM EDT CHW Wally Castro placed outbound call to patient for assistance with SDOH as a referral was received by the provider. Patient's name and were confirmed. Patient screened positive for the following SDOH housing insecurities. Patient states is staying with her friend but is searching for her own apartment. CHW referral patient to the list of application mail out to her address on file. Patient verbalizes understanding, and able to agree with plan to follow up herself. Patient educated on extended clinic hours on Mondays through Wednesdays, and Walk-In Urgent Care Located in [facility]. Patient provided with after-hours line for [facility], , which offer night time triage service and option to transfer to sonographer provider if needed. documented in this encounter Plan of Treatment Not on file documented as of this encounter Visit Diagnoses Not on filedocumented in this encounter Additional Health Concerns Assessment Noted Time PHQ-9 Depression Total Score: 5 01/04/20 25 10:29 AM EDT documented as of this encounter Care Teams Seat Trimmer Relationship Specialty Start Date End Date Vivian Massey DO [address] [place] [address] PCP - General Family Medicine 07/27/20 documented as of this encounter
--- OUTSIDE RECORDS SUMMARY | 2025-01-03 13:31 | XMS_ITS | Encounter Summary ---
Author Organization [employer] Address [address] [facility] 7 [place] [address] Care Team Providers Care Air Traffic Control Specialist Center Name Role Phone Shilpa Vivian Primary Care Provider + [phone] Reason for Visit * Reason Onset Date Comments chart prep 01/02/2025 Encounter Details Date Type Department Care Team ([facility] st Contact Info) Description 01/02/2025 Telephone [facility] MEDICINE [address] [place] [address] Karly Guzman MD [address] [place] [address] chart prep Social History Tobacco Use Types Packs/Day Years [...] encounter Miscellaneous Notes * Telephone Encounter - Laney Mojica [place] - 01/02/2025 3:44 PM EDT Chart Prep Labs: done Images: done Referrals: complete Vaccines due: Covid, Flu, and Zoster Screenings: not applicable Overdue care gaps: SBIRT, SDOH, and PHQ-9 documented in this encounter Plan of Treatment Not on file documented as of this encounter Visit Diagnoses Not on filedocumented in this encounter Additional Health Concerns Assessment Noted Time PHQ-9 Depression Total Score: 10 024 9:35 AM EDT documented as of this encounter Care Teams Air Traffic Control Specialist Center Relationship Specialty Start Date End Date Vivian Massey DO [address] [place] [address] PCP - General Family Medicine 07/27/20 documented as of this encounter
--- OUTSIDE RECORDS SUMMARY | 2025-01-03 13:31 | XMS_ITS | Encounter Summary ---
Author Organization [facility] Address [address] [place] [address] Care Team Providers Care Staple Laster Name Role Phone Vivian Massey DO Primary Care Provider +1- [phone] Encounter Details Date Type Department Care Team (Late st Contact Info) Description 10/07/2024 Lab Requisition [facility] - Main Lab 299 [facility] [place] [address] Araceli Maya MD [address] [phone] Essential (primary) hypertension; Anemia, unspecified; Unspecified osteoarthritis, [...] Complete blood count (10/08/2024 5:15 AM EDT) [facility] WBC 5.4 4.8 - 10.8 K/mcL LAB HEMETOLOGY METHOD 10/08/2024 8:04 AM [facility] RBC 3.30(L) 3.80 - 4.80 M/mcL LAB HEMETOLOGY METHOD 10/08/2024 8:04 AM [facility] Hemoglobin 10.2(L) 11.5 - 16.0 g/dL LAB HEMETOLOGY METHOD 10/08/2024 8:04 AM [facility] Hematocrit 30.8(L) 35.0 - 47.0 % LAB HEMETOLOGY METHOD 10/08/2024 8:04 AM [facility] MCV 94.5 79.0 - 98.0 FL LAB HEMETOLOGY METHOD 10/08/2024 8:04 AM [facility] MCH 31.3 27.0 - 32.0 pcg LAB HEMETOLOGY METHOD 10/08/2024 8:04 AM [facility] MCHC 33.1 32.0 - 37.0 g/dL LAB HEMETOLOGY METHOD 10/08/2024 8:04 AM [facility] RDW 14.5 11.0 - 15.0 % LAB HEMETOLOGY METHOD 10/08/2024 8:04 AM [facility] Platelets 222 130 - 400 K/mcL LAB HEMETOLOGY METHOD 10/08/2024 8:04 AM [facility] MPV 9.2 7.0 - 11.0 FL LAB HEMETOLOGY METHOD 10/08/2024 8:04 AM [facility] NRBC 0.0 <1.0 % LAB HEMETOLOGY METHOD 10/08/2024 8:04 AM [facility] NRBC Absolute 0.00 <0.10 K/mcL LAB HEMETOLOGY METHOD 10/08/2024 8:04 AM [facility] Blood Venous blood specimen / Unknown Venipuncture / Unknown 10/08/2024 5:15 AM EDT 10/08/2024 7:47 AM EDT us Araceli Maya MD LAB BLOOD ORDERABLES Fin al Result [facility] [address] [place] [address], * (ABNORMAL) Basic metabolic panel (10/08/2024 5:15 AM EDT) Sodium 131(L) 133 - 145 mmol/L LAB CHEMISTRY METHOD 10/08/2024 9:09 AM [facility] Potassium 3.6 3.5 - 5.5 mmol/L LAB CHEMISTRY METHOD 10/08/2024 9:09 AM [facility] Chloride 93(L) 96 - 110 mmol/L LAB CHEMISTRY METHOD 10/08/2024 9:09 AM [facility] CO2 33(H) 21 - 32 mmol/L LAB CHEMISTRY METHOD 10/08/2024 9:09 AM [facility] Anion Gap 5 3 - 11 LAB CHEMISTRY METHOD 10/08/2024 9:09 AM [facility] Glucose 79 70 - 100 mg/dL LAB CHEMISTRY METHOD 10/08/2024 9:09 AM [facility] BUN 14 5 - 25 mg/dL LAB CHEMISTRY METHOD 10/08/2024 9:09 AM [facility] Creatinine 0.83 0.50 - 1.10 mg/dL LAB CHEMISTRY METHOD 10/08/2024 9:09 AM [facility] eGFR 73 >=60 mL/min/1. 73m2 LAB CHEMISTRY METHOD 10/08/2024 9:09 AM EDT [facility] Comment:Calculation based on the Chronic Kidney Disease Epidemiology Collaboration (CKD-EPI) equation refit without adjustment for race. BUN/Creatinine Ratio 16.9 LAB CHEMISTRY METHOD 10/08/2024 9:09 AM EDT [facility] Calcium 8.7 8.5 - 10.5 mg/dL LAB CHEMISTRY METHOD 10/08/2024 9:09 AM EDT [facility] Blood Venous blood specimen / Unknown Venipuncture / Unknown 10/08/2024 5:15 AM EDT 10/08/2024 7:47 AM EDT us Araceli Maya MD LAB BLOOD ORDERABLES Fin al Result [facility] [address] [place] [address], documented in this encounter Visit Diagnoses Diagnosis Essential (primary) hypertension Unspecified essential hypertension Anemia, unspecified Unspecified osteoarthritis, unspecified site documented in this encounter Care Teams Staple Laster Relationship Specialty Start Date End Date Vivian Massey DO [address] [place] [address] PCP - General Internal Medicine 07/21/17 documented as of this encounter
--- OUTSIDE RECORDS SUMMARY | 2025-01-03 13:31 | XMS_ITS | Encounter Summary ---
Author Organization [facility] Address [address] [place] [address] Care Team Providers Care Back Winder Name Role Phone Vivian Massey DO Primary Care Provider +1- [phone] Encounter Details Date Type Department Care Team (Late st Contact Info) Description 10/21/2024 Lab Requisition [facility] - Main Lab 299 [facility] [place] [address] Araceli Maya MD [address] [phone] Essential (primary) hypertension; Anemia, unspecified; Unspecified osteoarthritis, [...] Complete blood count (10/22/2024 6:15 AM EDT) [facility] Signature WBC 3.6(L) 4.8 - 10.8 K/mcL LAB HEMETOLOGY METHOD 10/22/2024 9:10 AM [facility] RBC 3.40(L) 3.80 - 4.80 M/mcL LAB HEMETOLOGY METHOD 10/22/2024 9:10 AM [facility] Hemoglobin 10.6(L) 11.5 - 16.0 g/dL LAB HEMETOLOGY METHOD 10/22/2024 9:10 AM [facility] Hematocrit 32.5(L) 35.0 - 47.0 % LAB HEMETOLOGY METHOD 10/22/2024 9:10 AM [facility] MCV 95.0 79.0 - 98.0 FL LAB HEMETOLOGY METHOD 10/22/2024 9:10 AM [facility] MCH 31.0 27.0 - 32.0 pcg LAB HEMETOLOGY METHOD 10/22/2024 9:10 AM [facility] MCHC 32.6 32.0 - 37.0 g/dL LAB HEMETOLOGY METHOD 10/22/2024 9:10 AM [facility] RDW 14.6 11.0 - 15.0 % LAB HEMETOLOGY METHOD 10/22/2024 9:10 AM [facility] Platelets 254 130 - 400 K/mcL LAB HEMETOLOGY METHOD 10/22/2024 9:10 AM [facility] MPV 8.9 7.0 - 11.0 FL LAB HEMETOLOGY METHOD 10/22/2024 9:10 AM [facility] NRBC 0.0 <1.0 % LAB HEMETOLOGY METHOD 10/22/2024 9:10 AM [facility] NRBC Absolute 0.00 <0.10 K/mcL LAB HEMETOLOGY METHOD 10/22/2024 9:10 AM [facility] Blood Venous blood specimen / Unknown Venipuncture / Unknown 10/22/2024 6:15 AM EDT 10/22/2024 8:58 AM EDT us Araceli Maya MD LAB BLOOD ORDERABLES Fin al Result [facility] [address] [place] [address], * (ABNORMAL) Basic metabolic panel (10/22/2024 6:15 AM EDT) Sodium 137 133 - 145 mmol/L LAB CHEMISTRY METHOD 10/22/2024 9:29 AM [facility] Potassium 3.6 3.5 - 5.5 mmol/L LAB CHEMISTRY METHOD 10/22/2024 9:29 AM [facility] Chloride 101 96 - 110 mmol/L LAB CHEMISTRY METHOD 10/22/2024 9:29 AM [facility] CO2 34(H) 21 - 32 mmol/L LAB CHEMISTRY METHOD 10/22/2024 9:29 AM [facility] Anion Gap 2(L) 3 - 11 LAB CHEMISTRY METHOD 10/22/2024 9:29 AM [facility] Glucose 74 70 - 100 mg/dL LAB CHEMISTRY METHOD 10/22/2024 9:29 AM [facility] BUN 14 5 - 25 mg/dL LAB CHEMISTRY METHOD 10/22/2024 9:29 AM [facility] Creatinine 0.89 0.50 - 1.10 mg/dL LAB CHEMISTRY METHOD 10/22/2024 9:29 AM [facility] eGFR 67 >=60 mL/min/1. 73m2 LAB CHEMISTRY METHOD 10/22/2024 9:29 AM EDT [facility] Comment:Calculation based on the Chronic Kidney Disease Epidemiology Collaboration (CKD-EPI) equation refit without adjustment for race. BUN/Creatinine Ratio 15.7 LAB CHEMISTRY METHOD 10/22/2024 9:29 AM EDT [facility] Calcium 8.5 8.5 - 10.5 mg/dL LAB CHEMISTRY METHOD 10/22/2024 9:29 AM EDT [facility] Blood Venous blood specimen / Unknown Venipuncture / Unknown 10/22/2024 6:15 AM EDT 10/22/2024 8:58 AM EDT us Araceli Maya MD LAB BLOOD ORDERABLES Fin al Result [facility] [address] [place] [address], documented in this encounter Visit Diagnoses Diagnosis Essential (primary) hypertension Unspecified essential hypertension Anemia, unspecified Unspecified osteoarthritis, unspecified site documented in this encounter Care Teams Back Winder Relationship Specialty Start Date End Date Vivian Massey DO [address] [place] [address] PCP - General Internal Medicine 07/21/17 documented as of this encounter
--- OUTSIDE RECORDS SUMMARY | 2025-01-03 13:31 | XMS_ITS | Encounter Summary ---
Author Organization [facility] Address [address] [place] [address] Care Team Providers Care Histology Assistant Name Role Phone Vivian Massey DO Primary Care Provider +1- [phone] Encounter Details Date Type Department Care Team (Late st Contact Info) Description 07/20/2024 Lab Requisition [facility] - Main Lab 299 [facility] [place] [address] Araceli Maya MD [address] [phone] Anemia, unspecified; Essential (primary) hypertension; Vitamin D [...] mmol/L LAB CHEMISTRY METHOD 07/20/2024 10:59 AM [facility] Potassium 3.9 3.5 - 5.5 mmol/L LAB CHEMISTRY METHOD 07/20/2024 10:59 AM [facility] Chloride 85(L) 96 - 110 mmol/L LAB CHEMISTRY METHOD 07/20/2024 10:59 AM [facility] CO2 31 21 - 32 mmol/L LAB CHEMISTRY METHOD 07/20/2024 10:59 AM [facility] Anion Gap 8 3 - 11 LAB CHEMISTRY METHOD 07/20/2024 10:59 AM [facility] Glucose 78 70 - 100 mg/dL LAB CHEMISTRY METHOD 07/20/2024 10:59 AM [facility] BUN 13 5 - 25 mg/dL LAB CHEMISTRY METHOD 07/20/2024 10:59 AM [facility] Creatinine 0.63 0.50 - 1.10 mg/dL LAB CHEMISTRY METHOD 07/20/2024 10:59 AM [facility] eGFR 92 >=60 mL/min/1. 73m2 LAB CHEMISTRY METHOD 07/20/2024 10:59 AM [facility] Comment:Calculation based on the Chronic Kidney Disease Epidemiology Collaboration (CKD-EPI) equation refit without adjustment for race. BUN/Creatinine Ratio 20.6 LAB CHEMISTRY METHOD 07/20/2024 10:59 AM [facility] Calcium 8.5 8.5 - 10.5 mg/dL LAB CHEMISTRY METHOD 07/20/2024 10:59 AM [facility] Blood Venous blood specimen / Unknown Venipuncture / Unknown 07/20/2024 6:07 AM EDT 07/20/2024 9:41 AM EDT Araceli Maya MD LAB BLOOD ORDERABLES Fin al Result [facility] [address] [place] [address], * (ABNORMAL) Complete blood count (07/20/2024 6:07 AM EDT) WBC 3.8(L) 4.8 - 10.8 K/mcL LAB HEMETOLOGY METHOD 07/20/2024 10:30 AM EDT [facility] RBC 3.60(L) 3.80 - 4.80 M/mcL LAB HEMETOLOGY METHOD 07/[facility]24 [facility] Hemoglobin 11.4(L) 11.5 - 16.0 g/dL LAB HEMETOLOGY METHOD 07/20/2024 10:30 AM [facility] Hematocrit 33.3(L) 35.0 - 47.0 % LAB HEMETOLOGY METHOD 07/20/2024 10:[facility] MCV 93.3 79.0 - 98.0 FL LAB HEMETOLOGY METHOD 07/20/2024 10:30 [facility] MCH 31.9 27.0 - 32.0 pcg LAB HEMETOLOGY METHOD 07/20/2024 10:30 AM EDT [facility] MCHC 34.2 32.0 - 37.0 g/dL LAB HEMETOLOGY METHOD 07/20/2024 10:30 [facility] RDW 12.7 11.0 - 15.0 % LAB HEMETOLOGY METHOD 07/20/2024 10:30 [facility] Platelets 194 130 - 400 K/mcL LAB HEMETOLOGY METHOD 07/20/2024 10:30 [facility] MPV 9.6 7.0 - 11.0 FL LAB HEMETOLOGY METHOD 07/20/2024 10:30 AM EDT [facility] NRBC 0.0 <1.0 % LAB HEMETOLOGY METHOD 07/20/2024 10:30 AM EDT [facility] NRBC Absolute 0.00 <0.10 K/mcL LAB HEMETOLOGY METHOD 07/20/2024 10:30 AM EDT [facility] Blood Venous blood specimen / Unknown Venipuncture / Unknown 07/20/2024 6:07 AM EDT 07/20/2024 9:41 AM EDT us Araceli Maya MD LAB BLOOD ORDERABLES Fin al Result [facility] [address] [place] [address], documented in this encounter Visit Diagnoses Diagnosis Anemia, unspecified Essential (primary) hypertension Unspecified essential hypertension Vitamin D deficiency, unspecified documented in this encounter Care Teams Histology Assistant Relationship Specialty Start Date End Date Vivian Massey DO [address] [place], [place] PCP - General Internal Medicine 07/21/17 documented as of this encounter
--- OUTSIDE RECORDS SUMMARY | 2025-01-03 13:31 | XMS_ITS | Encounter Summary ---
Author Organization [employer] Address [address] [facility] 7t [place] [address] Care Team Providers Care Supervisor Detasseling Crew Name Role Phone ArchanaVivian tomas Primary Care Provider + [phone] Encounter Details Date Type Department Care Team (Latest Contact Info) Description 01/02/2025 Travel Social History Tobacco Use Types Packs/Day Years [...] is your housing situation today? I have aniketjamaica alvarado 01/03/[address] you [...] documented as of this encounter Care Teams Supervisor Detasseling Crew Relationship Specialty Start Date End Date Vivian Massey DO [address] [place] [address] PCP - General Family Medicine 07/27/20 documented as of this encounter
--- OUTSIDE RECORDS SUMMARY | 2025-01-03 13:31 | XMS_ITS | Encounter Summary ---
Author Organization [facility] Address [address] [place] [address] Care Team Providers Care Mobile Sales Consultant Name Role Phone Vivian Massey Primary Care Provider [phone]- [phone] Encounter Details Date Type Department Care Team ([facility] st Contact Info) Description 10/07/2024 Lab Requisition [facility] - Main Lab 299 [facility] [place] [address] Araceli Maya MD [address] [phone] Urinary tract infection, site not specified Social [...] reflex microscopic (10/06/2024 8:10 AM EDT) Specific [place] Urine 1.022 1.003 - 1.030 LAB URINALYSIS - AUTOMATED METHOD 10/07/2024 12:13 PM [facility] pH, Urine 7.0 5.0 - 8.0 pH LAB URINALYSIS - AUTOMATED METHOD 10/07/2024 12:13 PM [facility] Leukocytes, Urine Large(A) Negative LAB URINALYSIS - AUTOMATED METHOD 10/07/2024 12:13 PM [facility] Nitrite, Urine Positive(A) Negative LAB URINALYSIS - AUTOMATED METHOD 10/07/2024 12:13 PM [facility] Protein, Urine 100(A) <=Trace mg/dL LAB URINALYSIS - AUTOMATED METHOD 10/07/2024 12:13 PM [facility] Glucose, Urine Negative Negative mg/dL LAB URINALYSIS - AUTOMATED METHOD 10/07/2024 12:13 PM [facility] Ketones, Urine Trace(A) Negative mg/dL LAB URINALYSIS - AUTOMATED METHOD 10/07/2024 12:13 PM [facility] Urobilinogen , Urine 1.0 0.2 - 1.0 mg/dL LAB URINALYSIS - AUTOMATED METHOD 10/07/2024 12:13 PM [facility] Bilirubin, Urine Negative Negative LAB URINALYSIS - AUTOMATED METHOD 10/07/2024 12:13 PM [facility] Blood, Urine Large(A) Negative LAB URINALYSIS - AUTOMATED METHOD 10/07/2024 12:13 PM [facility] RBC, Urine 20.0(H) 0 - 4 /HPF LAB URINALYSIS - AUTOMATED METHOD 10/07/2024 12:13 PM [facility] WBC, Urine 212.9(H) 0 - 4 /HPF LAB URINALYSIS - AUTOMATED METHOD 10/07/2024 12:13 PM EDT [facility] Squamous Epithelial, Urine 70(H) 0 - 60 /LPF LAB URINALYSIS - AUTOMATED METHOD 10/07/2024 12:13 PM EDT [facility] Non-Squamous Epithelial, Urine 2-5 TRANSITIONAL EPI /LPF LAB URINALYSIS - AUTOMATED METHOD 10/07/2024 12:13 PM EDT [facility] Crystals, Urine MOD CALCIUM OXALATE /LPF LAB URINALYSIS - AUTOMATED METHOD 10/07/2024 12:13 PM EDT [facility] Bacteria, Urine Moderate(A) Negative /HPF LAB URINALYSIS - AUTOMATED METHOD 10/07/2024 12:13 PM EDT [facility] Hyaline Casts, Urine 1.6 0 - 3 /LPF LAB URINALYSIS - AUTOMATED METHOD 10/07/2024 12:13 PM [facility] Urine Urine specimen obtained by clean catch procedure / Unknown Non-blood Collection / Unknown 10/06/2024 8:10 AM EDT 10/07/2024 11:17 AM EDT Araceli Maya MD LAB URINE ORDERABLES Fin al Result [facility] [address] [place] [address], * (ABNORMAL) Culture urine (10/06/2024 8:10 AM EDT) Culture, Urine >=100,000 CFU/mL Escherichia coli(A) RADHAMES 10/10/2024 7:49 AM EDT [facility] Comment: This is an edited result. Previous organism was Gram negative bacilli on 10/08/2024 at 0843 EDT. Culture, Urine 10,000-49,000 CFU/mL Morganella morganii ssp morganii(A) RADHAMES 10/10/2024 7:49 AM EDT [facility] Comment: The organism value for [...] - GENER AL ORDERABLES Final Result [facility] [address] [place] [address], documented in this encounter Visit Diagnoses Diagnosis Urinary tract infection, site not specified documented in this encounter Care Teams Mobile Sales Consultant Relationship Specialty Start Date End Date Vivian Massey DO [address] [place] [address] PCP - General Internal Medicine 07/21/17 documented as of this encounter
--- OUTSIDE RECORDS SUMMARY | 2025-01-03 13:31 | XMS_ITS | Encounter Summary ---
Author Organization [facility] Address [address] [place] [address] Care Team Providers Care Energy Conservation Director Name Role Phone Vivian Massey DO Primary Care Provider [phone]- [phone] Encounter Details Date Type Department Care Team (Late st Contact Info) Description 10/28/2024 Lab Requisition [facility] - Main Lab 299 [facility] [place] [address] Araceli Maya MD [address] [address] Unspecified osteoarthritis, unspecified site; Essential (primary) hypertension; [...] unspecified documented in this encounter Care Teams Energy Conservation Director Relationship Specialty Start Date End Date Vivian Massey DO [address], [place] PCP - General Internal Medicine 07/21/17 documented as of this encounter
--- OUTSIDE RECORDS SUMMARY | 2025-01-03 13:31 | XMS_ITS | Encounter Summary ---
Author Organization [employer] Address [address] [facility] 7t [place] [address] Care Team Providers Care Coal Hauler Name Role Phone ArchanaVivian tomas Primary Care Provider + [phone] Encounter Details Date Type Department Care Team (Latest Contact Info) Description 01/03/2025 Travel Social History Tobacco Use Types Packs/Day [...] documented as of this encounter Care Teams Coal Hauler Relationship Specialty Start Date End Date Vivian Massey DO [address] [place] [address] PCP - General Family Medicine 07/27/20 documented as of this encounter
--- OUTSIDE RECORDS SUMMARY | 2025-01-03 13:31 | XMS_ITS | Encounter Summary ---
Author Organization [facility] Address [address] [place] [address] Care Team Providers Care A R Specialist Name Role Phone Vivian Massey DO Primary Care Provider [phone]- [phone] Encounter Details Date Type Department Care Team (Late st Contact Info) Description 09/30/2024 Lab Requisition [facility] - Main Lab 299 [facility] [place] [address] Araceli Maya MD [address] [phone] Essential (primary) hypertension; Anemia, unspecified; Unspecified osteoarthritis, [...] Complete blood count (10/01/2024 5:36 AM EDT) [facility] WBC 4.2(L) 4.8 - 10.8 K/mcL LAB HEMETOLOGY METHOD 10/01/2024 7:51 AM [facility] RBC 3.40(L) 3.80 - 4.80 M/mcL LAB HEMETOLOGY METHOD 10/01/2024 7:51 AM [facility] Hemoglobin 10.8(L) 11.5 - 16.0 g/dL LAB HEMETOLOGY METHOD 10/01/2024 7:51 AM [facility] Hematocrit 33.5(L) 35.0 - 47.0 % LAB HEMETOLOGY METHOD 10/01/2024 7:51 AM [facility] MCV 97.7 79.0 - 98.0 FL LAB HEMETOLOGY METHOD 10/01/2024 7:51 AM [facility] MCH 31.5 27.0 - 32.0 pcg LAB HEMETOLOGY METHOD 10/01/2024 7:51 AM [facility] MCHC 32.2 32.0 - 37.0 g/dL LAB HEMETOLOGY METHOD 10/01/2024 7:51 AM [facility] RDW 14.5 11.0 - 15.0 % LAB HEMETOLOGY METHOD 10/01/2024 7:51 AM [facility] Platelets 243 130 - 400 K/mcL LAB HEMETOLOGY METHOD 10/01/2024 7:51 AM [facility] MPV 9.4 7.0 - 11.0 FL LAB HEMETOLOGY METHOD 10/01/2024 7:51 AM [facility] NRBC 0.0 <1.0 % LAB HEMETOLOGY METHOD 10/01/2024 7:51 AM [facility] NRBC Absolute 0.00 <0.10 K/mcL LAB HEMETOLOGY METHOD 10/01/2024 7:51 AM [facility] Blood Venous blood specimen / Unknown Venipuncture / Unknown 10/01/2024 5:36 AM EDT 10/01/2024 6:57 AM EDT us Araceli Maya MD LAB BLOOD ORDERABLES Fin al Result [facility] [address] [place] [address], [place] [phone] * (ABNORMAL) Basic metabolic panel (10/01/2024 5:36 AM EDT) Sodium 138 133 - 145 mmol/L LAB CHEMISTRY METHOD 10/01/2024 8:12 AM [facility] Potassium 3.3(L) 3.5 - 5.5 mmol/L LAB CHEMISTRY METHOD 10/01/2024 8:12 AM [facility] Chloride 100 96 - 110 mmol/L LAB CHEMISTRY METHOD 10/01/2024 8:12 AM [facility] CO2 32 21 - 32 mmol/L LAB CHEMISTRY METHOD 10/01/2024 8:12 AM [facility] Anion Gap 6 3 - 11 LAB CHEMISTRY METHOD 10/01/2024 8:12 AM [facility] Glucose 82 70 - 100 mg/dL LAB CHEMISTRY METHOD 10/01/2024 8:12 AM [facility] BUN 14 5 - 25 mg/dL LAB CHEMISTRY METHOD 10/01/2024 8:12 AM [facility] Creatinine 0.81 0.50 - 1.10 mg/dL LAB CHEMISTRY METHOD 10/01/2024 8:12 AM [facility] eGFR 75 >=60 mL/min/1. 73m2 LAB CHEMISTRY METHOD 10/01/2024 8:12 AM EDT [facility] Comment:Calculation based on the Chronic Kidney Disease Epidemiology Collaboration (CKD-EPI) equation refit without adjustment for race. BUN/Creatinine Ratio 17.3 LAB CHEMISTRY METHOD 10/01/2024 8:12 AM EDT [facility] Calcium 8.8 8.5 - 10.5 mg/dL LAB CHEMISTRY METHOD 10/01/2024 8:12 AM EDT [facility] Blood Venous blood specimen / Unknown Venipuncture / Unknown 10/01/2024 5:36 AM EDT 10/01/2024 6:57 AM EDT us Araceli Maya MD LAB BLOOD ORDERABLES Fin al Result [facility] [address] [place] [address], documented in this encounter Visit Diagnoses Diagnosis Essential (primary) hypertension Unspecified essential hypertension Anemia, unspecified Unspecified osteoarthritis, unspecified site documented in this encounter Care Teams A R Specialist Relationship Specialty Start Date End Date Vivian Massey DO [address] [place] [address] PCP - General Internal Medicine 07/21/17 documented as of this encounter
--- OUTSIDE RECORDS SUMMARY | 2025-01-03 13:31 | XMS_ITS | Encounter Summary ---
Author Organization [employer] Address [address] [facility] [address] [place] [address] Care Team Providers Care Salon Professional Name Role Phone Vivian Massey DO Primary Care Provider +1 [phone] Reason for Visit * Reason Onset Date Comments Nurse Triage 01/02/2025 Encounter Details Date Type Department Care Team ([facility] st Contact Info) Description 01/02/2025 Telephone [facility] [address] [place] [address] Vivian Massey DO [address] [place], [place] [phone] Nurse Triage Social History Tobacco Use Types [...] encounter Miscellaneous Notes * Telephone Encounter - Nery Hopkins RN - 01/02/2025 10:49 AM EDT Call returned to pt who reports that she knows she has a UTI. Pt c/o 6/10 dysuria every time she urinates x 2 days. Pt c/o urgency and increased urinary frequency. Pt denies malodorous urine, fever, back pain, abdominal pain, difficulty with bowel movements. Recommended in person evaluation today. Pt declines stating she is not in the area today. Requests appointment tomorrow and states she has no way to get to clinic. Advised RN will set up Uber for pt for tomorrow. Advised to return call for worsening symptoms. Protocol Used: Urination Pain - Female (Adult) Protocol-Based Disposition: See in Office or Video Visit Today Override (Final) Disposition: See in Office or Video Visit Today or Tomorrow Override Reason: Patient out of town Override Notes: Pt declines evaluation today Video visit not offered Positive Triage Question: * Painful urination AND EITHER frequency or urgency * All higher-acuity triage questions were negative * Telephone Encounter - Alli Gamez - 01/02/2025 10:17 AM EDT Symptom: Urination Pain Outcome: Schedule a same-day appointment or talk to a nurse or provider today Reason: Caller denied all higher acuity questions The caller accepted this outcome. Contact pt at [phone] documented in this encounter Plan of Treatment Not on file documented as of this encounter Visit Diagnoses Not on filedocumented in this encounter Additional Health Concerns Assessment Noted Time PHQ-9 Depression Total Score: 10 024 9:35 AM EDT documented as of this encounter Care Teams Salon Professional Relationship Specialty Start Date End Date Vivian Massey DO [address] [place] [address] PCP - General Family Medicine 07/27/20 documented as of this encounter
--- OUTSIDE RECORDS SUMMARY | 2025-01-03 13:31 | XMS_ITS | Encounter Summary ---
Author Organization [facility] Address [address] [place] [address] Care Team Providers Care Landfill Gas Collection System Operator Name Role Phone Vivian Massey DO Primary Care Provider +1- [phone] Encounter Details Date Type Department Care Team ([facility] st Contact Info) Description 09/03/[address] [facility] - Main Lab [address] [facility] [place] [address] Araceli Maya MD [address] [id number] Essential (primary) hypertension; Anemia, unspecified; Unspecified osteoarthritis, [...] mmol/L LAB CHEMISTRY METHOD 09/03/2024 11:20 AM [facility] Potassium 3.2(L) 3.5 - 5.5 mmol/L LAB CHEMISTRY METHOD 09/03/2024 11:20 AM [facility] Chloride 100 96 - 110 mmol/L LAB CHEMISTRY METHOD 09/03/2024 11:20 AM [facility] CO2 33(H) 21 - 32 mmol/L LAB CHEMISTRY METHOD 09/03/2024 11:20 AM [facility] Anion Gap 8 3 - 11 LAB CHEMISTRY METHOD 09/03/2024 11:20 AM [facility] Glucose 84 70 - 100 mg/dL LAB CHEMISTRY METHOD 09/03/2024 11:20 AM [facility] BUN 15 5 - 25 mg/dL LAB CHEMISTRY METHOD 09/03/2024 11:20 AM [facility] Creatinine 0.89 0.50 - 1.10 mg/dL LAB CHEMISTRY METHOD 09/03/2024 11:20 AM [facility] eGFR 67 >=60 mL/min/1. 73m2 LAB CHEMISTRY METHOD 09/03/2024 11:20 AM [facility] Comment:Calculation based on the Chronic Kidney Disease Epidemiology Collaboration (CKD-EPI) equation refit without adjustment for race. BUN/Creatinine Ratio 16.9 LAB CHEMISTRY METHOD 09/03/2024 11:20 AM [facility] Calcium 8.8 8.5 - 10.5 mg/dL LAB CHEMISTRY METHOD 09/03/2024 11:20 AM [facility] Blood Venous blood specimen / Unknown Venipuncture / Unknown 09/03/2024 6:42 AM EDT 09/03/2024 9:10 AM EDT us Araceli Maya MD LAB BLOOD ORDERABLES Fin al Result [facility] [address] [place] [address], * (ABNORMAL) Complete blood count (09/03/2024 6:42 AM EDT) WBC 4.7(L) 4.8 - 10.8 K/mcL LAB HEMETOLOGY METHOD 09/03/2024 10:02 AM EDT [facility] RBC 3.50(L) 3.80 - 4.80 M/mcL LAB HEMETOLOGY METHOD 09/03/2024 10:02 AM [facility] Hemoglobin 10.8(L) 11.5 - 16.0 g/dL LAB HEMETOLOGY METHOD 09/03/2024 10:02 AM [facility] Hematocrit 34.4(L) 35.0 - 47.0 % LAB HEMETOLOGY METHOD 09/03/2024 10:02 AM [facility] MCV 97.2 79.0 - 98.0 FL LAB HEMETOLOGY METHOD 09/03/2024 10:02 AM [facility] MCH 30.5 27.0 - 32.0 pcg LAB HEMETOLOGY METHOD 09/03/2024 10:02 AM [facility] MCHC 31.4(L) 32.0 - 37.0 g/dL LAB HEMETOLOGY METHOD 09/03/2024 10:02 AM [facility] RDW 13.9 11.0 - 15.0 % LAB HEMETOLOGY METHOD 09/03/2024 10:02 AM [facility] Platelets 253 130 - 400 K/mcL LAB HEMETOLOGY METHOD 09/03/2024 10:02 AM [facility] MPV 9.1 7.0 - 11.0 FL LAB HEMETOLOGY METHOD 09/03/2024 10:02 AM EDT [facility] NRBC 0.0 <1.0 % LAB HEMETOLOGY METHOD 09/03/2024 10:02 AM EDT [facility] NRBC Absolute 0.00 <0.10 K/mcL LAB HEMETOLOGY METHOD 09/03/2024 10:02 AM EDT [facility] Blood Venous blood specimen / Unknown Venipuncture / Unknown 09/03/2024 6:42 AM EDT 09/03/2024 9:10 AM EDT us Araceli Maya MD LAB BLOOD ORDERABLES Fin al Result [facility] [address] [place] [address], documented in this encounter Visit Diagnoses Diagnosis Essential (primary) hypertension Unspecified essential hypertension Anemia, unspecified Unspecified osteoarthritis, unspecified site documented in this encounter Care Teams Landfill Gas Collection System Operator Relationship Specialty Start Date End Date Vivian Massey DO [address] [place] [address] PCP - General Internal Medicine 07/21/17 documented as of this encounter
--- OUTSIDE RECORDS SUMMARY | 2025-01-03 13:31 | XMS_ITS | Encounter Summary ---
Author Organization [facility] Address [address] [place] [address] Care Team Providers Care Leather Skinner Name Role Phone Vivian Massey DO Primary Care Provider +1- [phone] Encounter Details Date Type Department Care Team (Late st Contact Info) Description 10/14/2024 Lab Requisition [facility] - Main Lab [address] [facility] [place] [address] Araceli Maya MD [address] [phone] Essential (primary) hypertension; Anemia, unspecified; Unspecified osteoarthritis, [...] Complete blood count (10/15/2024 6:42 AM EDT) [facility] WBC 5.2 4.8 - 10.8 K/mcL LAB HEMETOLOGY METHOD 10/15/2024 9:09 AM [facility] RBC 3.50(L) 3.80 - 4.80 M/mcL LAB HEMETOLOGY METHOD 10/15/2024 9:09 AM [facility] Hemoglobin 11.0(L) 11.5 - 16.0 g/dL LAB HEMETOLOGY METHOD 10/15/2024 9:09 AM [facility] Hematocrit 34.0(L) 35.0 - 47.0 % LAB HEMETOLOGY METHOD 10/15/2024 9:09 AM [facility] MCV 96.0 79.0 - 98.0 FL LAB HEMETOLOGY METHOD 10/15/2024 9:09 AM [facility] MCH 31.1 27.0 - 32.0 pcg LAB HEMETOLOGY METHOD 10/15/2024 9:09 AM [facility] MCHC 32.4 32.0 - 37.0 g/dL LAB HEMETOLOGY METHOD 10/15/2024 9:09 AM [facility] RDW 14.6 11.0 - 15.0 % LAB HEMETOLOGY METHOD 10/15/2024 9:09 AM [facility] Platelets 264 130 - 400 K/mcL LAB HEMETOLOGY METHOD 10/15/2024 9:09 AM [facility] MPV 8.8 7.0 - 11.0 FL LAB HEMETOLOGY METHOD 10/15/2024 9:09 AM [facility] NRBC 0.0 <1.0 % LAB HEMETOLOGY METHOD 10/15/2024 9:09 AM [facility] NRBC Absolute 0.00 <0.10 K/mcL LAB HEMETOLOGY METHOD 10/15/2024 9:09 AM [facility] Blood Venous blood specimen / Unknown Venipuncture / Unknown 10/15/2024 6:42 AM EDT 10/15/2024 8:23 AM EDT us Araceli Maya MD LAB BLOOD ORDERABLES Fin al Result [facility] [address] [place] [address], * (ABNORMAL) Basic metabolic panel (10/15/2024 6:42 AM EDT) Sodium 134 133 - 145 mmol/L LAB CHEMISTRY METHOD 10/15/2024 9:34 AM [facility] Potassium 4.1 3.5 - 5.5 mmol/L LAB CHEMISTRY METHOD 10/15/2024 9:34 AM [facility] Chloride 97 96 - 110 mmol/L LAB CHEMISTRY METHOD 10/15/2024 9:34 AM [facility] CO2 34(H) 21 - 32 mmol/L LAB CHEMISTRY METHOD 10/15/2024 9:34 AM [facility] Anion Gap 3 3 - 11 LAB CHEMISTRY METHOD 10/15/2024 9:34 AM [facility] Glucose 84 70 - 100 mg/dL LAB CHEMISTRY METHOD 10/15/2024 9:34 AM [facility] BUN 15 5 - 25 mg/dL LAB CHEMISTRY METHOD 10/15/2024 9:34 AM [facility] Creatinine 1.01 0.50 - 1.10 mg/dL LAB CHEMISTRY METHOD 10/15/2024 9:34 AM [facility] eGFR 58(L) >=60 mL/min/1. 73m2 LAB CHEMISTRY METHOD 10/15/2024 9:34 AM EDT [facility] Comment:Calculation based on the Chronic Kidney Disease Epidemiology Collaboration (CKD-EPI) equation refit without adjustment for race. BUN/Creatinine Ratio 14.9 LAB CHEMISTRY METHOD 10/15/2024 9:34 AM EDT [facility] Calcium 9.0 8.5 - 10.5 mg/dL LAB CHEMISTRY METHOD 10/15/2024 9:34 AM EDT [facility] Blood Venous blood specimen / Unknown Venipuncture / Unknown 10/15/2024 6:42 AM EDT 10/15/2024 8:23 AM EDT us Araceli Maya MD LAB BLOOD ORDERABLES Fin al Result [facility] [address] [place] [address], documented in this encounter Visit Diagnoses Diagnosis Essential (primary) hypertension Unspecified essential hypertension Anemia, unspecified Unspecified osteoarthritis, unspecified site documented in this encounter Care Teams Leather Skinner Relationship Specialty Start Date End Date Vivian Massey DO [address] [place] [address] PCP - General Internal Medicine 07/21/17 documented as of this encounter
--- OUTSIDE RECORDS SUMMARY | 2025-01-03 13:31 | XMS_ITS | Encounter Summary ---
Author Organization [facility] Address [address] [place] [address] Care Team Providers Care Fuel Management Handler Name Role Phone Vivian Massey DO Primary Care Provider +1- [phone] Encounter Details Date Type Department Care Team (Late st Contact Info) Description 09/09/2024 Lab Requisition [facility] - Main Lab [address] [facility] [place] [address] Araceli Maya MD [address] [phone] Essential (primary) hypertension; Anemia, unspecified; Unspecified osteoarthritis, [...] Complete blood count (09/10/2024 6:14 AM EDT) [facility] Signature WBC 4.6(L) 4.8 - 10.8 [...] al Result [facility] [address] [place] [address], [place] [phone] * (ABNORMAL) Basic metabolic panel (09/10/2024 6:14 [...] LAB CHEMISTRY METHOD 09/10/2024 8:[address] [facility] Comment:Calculation based on the Chronic Kidney Disease Epidemiology Collaboration (CKD-EPI) equation refit without adjustment for race. BUN/Creatinine Ratio 22.2 LAB CHEMISTRY METHOD 09/10/2024 8:[address] [facility] Calcium 8.5 8.5 - 10.5 mg/dL LAB CHEMISTRY METHOD 09/10/2024 8:[address] [facility] Blood Venous blood specimen / Unknown Venipuncture / Unknown 09/10/2024 6:14 AM EDT 09/10/2024 7:30 AM EDT us Araceli Maya MD LAB BLOOD ORDERABLES Fin al Result [facility] [address] [place] [address], documented in this encounter Visit Diagnoses Diagnosis Essential (primary) hypertension Unspecified essential hypertension Anemia, unspecified Unspecified osteoarthritis, unspecified site documented in this encounter Care Teams Fuel Management Handler Relationship Specialty Start Date End Date Vivian Massey DO [address] [place] [address] PCP - General Internal Medicine 07/21/17 documented as of this encounter
--- OUTSIDE RECORDS SUMMARY | 2025-01-03 13:31 | XMS_ITS | Encounter Summary ---
Author Organization [facility] Address [address] [place] [address] Care Team Providers Care Manager Therapy Name Role Phone Vivian Massey DO Primary Care Provider +1- [phone] Encounter Details Date Type Department Care Team (Late st Contact Info) Description 07/29/2024 Lab Requisition [facility] - Main Lab [address] [facility] [place] [address] Araceli Maya MD [address] [id number] Essential (primary) hypertension; Anemia, unspecified; Unspecified osteoarthritis, [...] mmol/L LAB CHEMISTRY METHOD 07/30/2024 12:09 PM [facility] Potassium 3.9 3.5 - 5.5 mmol/L LAB CHEMISTRY METHOD 07/30/2024 12:09 PM [facility] Chloride 96 96 - 110 mmol/L LAB CHEMISTRY METHOD 07/30/2024 12:09 PM [facility] CO2 30 21 - 32 mmol/L LAB CHEMISTRY METHOD 07/30/2024 12:09 PM [facility] Anion Gap 7 3 - 11 LAB CHEMISTRY METHOD 07/30/2024 12:09 PM [facility] Glucose 71 70 - 100 mg/dL LAB CHEMISTRY METHOD 07/30/2024 12:09 PM [facility] BUN 13 5 - 25 mg/dL LAB CHEMISTRY METHOD 07/30/2024 12:09 PM [facility] Creatinine 0.80 0.50 - 1.10 mg/dL LAB CHEMISTRY METHOD 07/30/2024 12:09 PM [facility] eGFR 76 >=60 mL/min/1. 73m2 LAB CHEMISTRY METHOD 07/30/2024 12:09 PM [facility] Comment:Calculation based on the Chronic Kidney Disease Epidemiology Collaboration (CKD-EPI) equation refit without adjustment for race. BUN/Creatinine Ratio 16.3 LAB CHEMISTRY METHOD 07/30/2024 12:09 PM [facility] Calcium 8.3(L) 8.5 - 10.5 mg/dL LAB CHEMISTRY METHOD 07/30/2024 12:09 PM [facility] Blood Venous blood specimen / Unknown Venipuncture / Unknown 07/30/2024 6:05 AM EDT 07/30/2024 10:35 AM EDT us Whit Laba Elder MD LAB BLOOD ORDERABLES Fin al Result [facility] [address] [place] [address], * (ABNORMAL) Complete blood count (07/30/2024 6:05 AM EDT) WBC 4.6(L) 4.8 - 10.8 K/mcL LAB HEMETOLOGY METHOD 07/30/2024 10:[address] [facility] RBC 3.40(L) 3.80 - 4.80 M/mcL LAB HEMETOLOGY METHOD 07/30/2024 10:49 AM [facility] Hemoglobin 10.5(L) 11.5 - 16.0 g/dL LAB HEMETOLOGY METHOD 07/30/2024 10:49 AM [facility] Hematocrit 32.1(L) 35.0 - 47.0 % LAB HEMETOLOGY METHOD 07/30/2024 10:49 AM [facility] MCV 95.3 79.0 - 98.0 FL LAB HEMETOLOGY METHOD 07/30/2024 10:49 AM [facility] MCH 31.2 27.0 - 32.0 pcg LAB HEMETOLOGY METHOD [facility] MCHC 32.7 32.0 - 37.0 g/dL LAB HEMETOLOGY METHOD [facility]24 [facility] RDW 13.5 11.0 - 15.0 % LAB HEMETOLOGY METHOD 07/30[facility]2024 [facility] Platelets 366 130 - 400 K/mcL LAB HEMETOLOGY METHOD [facility]/30[facility]24 [facility] MPV 8.9 7.0 - 11.0 FL LAB HEMETOLOGY METHOD 07/30/2024 10:[address] [facility] NRBC 0.0 <1.0 % LAB HEMETOLOGY METHOD 07/30/2024 10:[address] [facility] NRBC Absolute 0.00 <0.10 K/mcL LAB HEMETOLOGY METHOD 07/30/2024 10:[address] [facility] Blood Venous blood specimen / Unknown Venipuncture / Unknown 07/30/2024 6:05 AM EDT 07/30/2024 10:35 AM EDT us Araceli Maya MD LAB BLOOD ORDERABLES Fin al Result [facility] [address] [place] [address], documented in this encounter Visit Diagnoses Diagnosis Essential (primary) hypertension Unspecified essential hypertension Anemia, unspecified Unspecified osteoarthritis, unspecified site documented in this encounter Care Teams Manager Therapy Relationship Specialty Start Date End Date Vivian Massey DO [address] [place], [place] PCP - General Internal Medicine 07/21/17 documented as of this encounter
[2025-01-03 16:30] LABS: Appearance Urine Cloudy; Glucose Urine UA Negative (Negative); PH 6.0 (5.0-9.0); Specific Gravity - Urine 1.025 (1.005-1.025); UMIC TRIGGER UACC YES
[2025-01-03 17:05] LABS: UACC Culture Trigger YES
[2025-01-03 17:21] LABS: Anion Gap 15 (12-20); Blood Urea Nitrogen 10 mg/dL (9-16); Calcium 10.0 mg/dL (8.4-10.2); Carbon Dioxide 29 mmol/L (22-29); Chloride 100 mmol/L (96-108); Estimated Glomerular Filt Rate > 60; Potassium 3.9 mmol/L (3.3-5.1); Sodium 140 mmol/L (135-145)
== END 2025-01-03 11:10 | disposition home or self-care (01) ==
LOC: HO.HHCL 11:09
PROVIDERS: Student in an Organized Health Care Education/Training Program; PCP Family Medicine; Visit Provider Internal Medicine
DX: E87.6 Hypokalemia (principal); R30.0 Dysuria
CPT/HCPCS: 36415; 80048; 81001; 87086

== ENCOUNTER 2025-02-21 11:21 | Outpatient (REF) | payer MEDICARE, MEDICAID, SELFPAY ==
--- OUTSIDE RECORDS SUMMARY | 2025-02-21 17:37 | XMS_ITS | Encounter Summary ---
Author Organization [facility] Address [address] [place] [address] Care Team Providers Care School Cook Name Role Phone Vivian Massey DO Primary Care Provider +1- [phone] Encounter Details Date Type Department Care Team ([facility] st Contact Info) Description 08/12/2024 Lab Requisition [facility] - Main Lab 299 [facility] [place] [address] Araceli Maya MD [address] [phone] Essential (primary) hypertension; Anemia, unspecified; Unspecified osteoarthritis, unspecified site Social History Tobacco Use Types Packs/Day Years Used Date Smoking Tobacco: Former Cigarettes 1 Q uit: 12/27/1997 Smokeless Tobacco: Never Alcohol [...] METHOD 08/13/2024 10:09 AM [facility] Blood Venous blood specimen / Unknown Venipuncture / Unknown 08/13/2024 6:05 AM EDT 08/13/2024 9:23 AM EDT us Araceli Maya MD LAB BLOOD ORDERABLES Fin al Result [facility] [address] [place] [address], * (ABNORMAL) Complete blood count (08/13/2024 6:05 AM EDT) WBC 3.5(L) 4.8 - 10.8 K/mcL LAB HEMETOLOGY METHOD 08/13/2024 9:52 AM EDT [facility] RBC 3.50(L) 3.80 - 4.80 M/mcL LAB HEMETOLOGY METHOD 08/13[facility]24 [facility] Hemoglobin 10.9(L) 11.5 - 16.0 g/dL LAB HEMETOLOGY METHOD 08/13/2024 9:52 AM [facility] Hematocrit 33.8(L) 35.0 - 47.0 % LAB HEMETOLOGY METHOD 08/13/2024 9:[facility] MCV 95.8 79.0 - 98.0 FL LAB HEMETOLOGY METHOD 08/13/2024 9:52 [facility] MCH 30.9 27.0 - 32.0 pcg LAB HEMETOLOGY METHOD 08/13/2024 9:52 AM EDT [facility] MCHC 32.2 32.0 - 37.0 g/dL LAB HEMETOLOGY METHOD 08/13/2024 9:52 [facility] RDW 14.1 11.0 - 15.0 % LAB HEMETOLOGY METHOD 08/13/2024 9:52 [facility] Platelets 224 130 - 400 K/mcL LAB HEMETOLOGY METHOD 08/13/2024 9:52 [facility] MPV 9.0 7.0 [...] al Result [facility] [address] [place] [address], documented in this encounter Visit Diagnoses Diagnosis Essential (primary) hypertension Unspecified essential hypertension Anemia, unspecified Unspecified osteoarthritis, unspecified site documented in this encounter Care Teams School Cook Relationship Specialty Start Date End Date Vivian Massey DO [address] [place] [address] PCP - General Internal Medicine 07/21/17 documented as of this encounter
--- OUTSIDE RECORDS SUMMARY | 2025-02-21 17:37 | XMS_ITS | Clinical Summary ---
Author Organization [facility] Address [address] [address] Phone Care Team Providers Care Printing Grey Cloth Tender Name Role Phone Clementine Masseyfer Primary Care Provider [phone] Social History Tobacco Use Types Packs/Day Years [...] A & B [facility] MEDICARE REPLACEMENT MEDICARE PART A & B [facility] MEDICARE REPLACEMENT MEDICARE PART A & B [facility] [address] [place] [address] [facility] MEDICARE REPLACEMENT MEDICARE PART A & B [facility] [address] [place] [address] [facility] MEDICARE REPLACEMENT MEDICARE PART A & B [facility] MEDIC[facility] REPLACEMENT MEDICARE PART A & B [facility] Care Teams Printing Grey Cloth Tender Relationship Specialty Start Date End Date Vivian Massey DO [address] [place] [address] PCP - General Family Medicine 01/09/23 Additional Source Comments The information contained in this document represents components of the legal health record. It is not the complete legal health record.[facility]
--- OUTSIDE RECORDS SUMMARY | 2025-02-21 17:37 | XMS_ITS | Encounter Summary ---
Author Organization [facility] Address [address] [place] [address] Care Team Providers Care Health Data Administrator Name Role Phone Vivian Massey DO Primary Care Provider +1- [phone] Encounter Details Date Type Department Care Team (Late st Contact Info) Description 09/16/[address] [facility] - Main Lab 299 [facility] [place] [address] Araceli Maya MD [address] [phone] Essential (primary) hypertension; Anemia, unspecified; Unspecified osteoarthritis, [...] Fin al Result [facility] [address] [place] [address], * (ABNORMAL) Complete blood count (09/17/2024 6:04 AM EDT) WBC 4.4(L) 4.8 - 10.8 K/mcL LAB HEMETOLOGY METHOD 09/17/2024 9:19 AM EDT [facility] RBC 3.40(L) 3.80 - 4.80 M/mcL LAB HEMETOLOGY METHOD 09/17/2024 9[facility] Hemoglobin 10.7(L) 11.5 - 16.0 g/dL LAB HEMETOLOGY METHOD 09/17/2024 9:19 AM [facility] Hematocrit 33.3(L) 35.0 - 47.0 % LAB HEMETOLOGY METHOD 09/17/2024 9:19 AM [facility] MCV 97.7 79.0 - 98.0 FL LAB HEMETOLOGY METHOD 09/17/2024 9:[facility] MCH 31.4 27.0 - 32.0 pcg LAB HEMETOLOGY METHOD 09/17/2024 9:19 [facility] MCHC 32.1 32.0 - 37.0 g/dL LAB HEMETOLOGY METHOD 09/17/2024 9:[facility] RDW 14.4 11.0 - 15.0 % LAB HEMETOLOGY METHOD 09/17/2024 9:19 AM [facility] Platelets 225 130 - 400 K/mcL LAB HEMETOLOGY METHOD 09/17/2024 9:19 [facility] MPV 9.4 7.0 - 11.0 FL LAB HEMETOLOGY METHOD 09/17/2024 9:19 AM EDT [facility] NRBC 0.0 <1.0 % LAB HEMETOLOGY METHOD 09/17/2024 9:19 AM EDT [facility] NRBC Absolute 0.00 <0.10 K/mcL LAB HEMETOLOGY METHOD 09/17/2024 9:19 AM EDT [facility] Blood Venous blood specimen / Unknown Venipuncture / Unknown 09/17/2024 6:04 AM EDT 09/17/2024 8:25 AM EDT us Araceli Maya MD LAB BLOOD ORDERABLES Fin al Result [facility] [address] [place] [address], documented in this encounter Visit Diagnoses Diagnosis Essential (primary) hypertension Unspecified essential hypertension Anemia, unspecified Unspecified osteoarthritis, unspecified site documented in this encounter Care Teams Health Data Administrator Relationship Specialty Start Date End Date Vivian Massey DO [address] [place] [address] PCP - General Internal Medicine 07/21/17 documented as of this encounter
--- OUTSIDE RECORDS SUMMARY | 2025-02-21 17:37 | XMS_ITS | Encounter Summary ---
Author Organization [facility] Address [address] [place] [address] Care Team Providers Care Coater Brake Linings Name Role Phone Vivian Massey Primary Care Provider +1- [phone] Encounter Details Date Type Department Care Team ([facility] st Contact Info) Description 09/18/2024 Lab Requisition [facility] - Main Lab [address] [place] [address] Araceli Maya MD [address] [place] [phone] Hypokalemia Social History Tobacco Use Types Packs/Day [...] LAB CHEMISTRY METHOD 09/18/2024 8:19 AM EDT [facility] Potassium 3.6 3.5 - 5.5 mmol/L LAB CHEMISTRY METHOD 09/18/2024 8:19 AM [facility] Chloride 97 96 - 110 mmol/L LAB CHEMISTRY METHOD 09/18/2024 8:19 AM [facility] CO2 31 21 - 32 mmol/L LAB CHEMISTRY METHOD 09/18/2024 8:19 AM [facility] Anion Gap 6 3 - 11 LAB CHEMISTRY METHOD 09/18/2024 8:19 AM [facility] Glucose 82 70 - 100 mg/dL LAB CHEMISTRY METHOD 09/18/2024 8:19 AM [facility] BUN 11 5 - 25 mg/dL LAB CHEMISTRY METHOD 09/18/2024 8:19 AM [facility] Creatinine 0.69 0.50 - 1.10 mg/dL LAB CHEMISTRY METHOD 09/18/2024 8:19 AM [facility] eGFR 90 >=60 mL/min/1. 73m2 LAB CHEMISTRY METHOD 09/18/2024 8:19 AM [facility] Comment:Calculation based on the Chronic Kidney Disease Epidemiology Collaboration (CKD-EPI) equation refit without adjustment for race. BUN/Creatinine Ratio 15.9 LAB CHEMISTRY METHOD 09/18/2024 8:19 AM [facility] Calcium 9.0 8.5 - 10.5 mg/dL LAB CHEMISTRY METHOD 09/18/2024 8:19 AM [facility] Blood Venous blood specimen / Unknown Venipuncture / Unknown 09/18/2024 5:51 AM EDT 09/18/2024 6:44 AM EDT us Araceli Maya MD LAB BLOOD ORDERABLES Fin al Result [facility] [address] [place] [address], documented in this encounter Visit Diagnoses Diagnosis Hypokalemia Hypopotassemia documented in this encounter Care Teams Coater Brake Linings Relationship Specialty Start Date End Date Vivian Massey DO [address] [place], [place] PCP - General Internal Medicine 07/21/17 documented as of this encounter
--- OUTSIDE RECORDS SUMMARY | 2025-02-21 17:37 | XMS_ITS | Encounter Summary ---
Author Organization [facility] Address [address] [place] [address] Care Team Providers Care Sales Center Associate Name Role Phone Vivian Massey DO Primary Care Provider +1- [phone] Encounter Details Date Type Department Care Team (Late st Contact Info) Description 10/28/2024 Lab Requisition [facility] - Main Lab 299 [facility] [place] [address] Araceli Maya MD [address] [address] Unspecified osteoarthritis, unspecified site; Essential (primary) hypertension; [...] unspecified documented in this encounter Care Teams Sales Center Associate Relationship Specialty Start Date End Date Vivian Massey DO [address] [place], [place] PCP - General Internal Medicine 07/21/17 documented as of this encounter
--- OUTSIDE RECORDS SUMMARY | 2025-02-21 17:38 | XMS_ITS | Encounter Summary ---
Author Organization [facility] Address [address] [place] [address] Care Team Providers Care Fisheries Enforcement Officer Name Role Phone Vivian Massey DO Primary Care Provider +1- [phone] Encounter Details Date Type Department Care Team ([facility] st Contact Info) Description 08/03/2024 Lab Requisition [facility] - Main Lab 299 [facility] [place] [address] Araceli Maya MD [address] [phone] Essential (primary) hypertension; Anemia, unspecified; Unspecified osteoarthritis, [...] al Result [facility] [address] [place] [address], * (ABNORMAL) Complete blood count (08/06/2024 6:57 AM EDT) WBC 3.3(L) 4.8 - 10.8 K/mcL LAB HEMETOLOGY METHOD 08/06/2024 11:00 AM EDT [facility] RBC 3.70(L) 3.80 - 4.80 M/mcL LAB HEMETOLOGY METHOD 08/06/2024 11:00 AM [facility] Hemoglobin 11.4(L) 11.5 - 16.0 g/dL LAB HEMETOLOGY METHOD 08/06/2024 11:00 AM [facility] Hematocrit 34.9(L) 35.0 - 47.0 % LAB HEMETOLOGY METHOD 08/06/2024 11:00 AM [facility] MCV 95.6 79.0 - 98.0 FL LAB HEMETOLOGY METHOD 08/06/2024 11:00 AM [facility] MCH 31.2 27.0 - 32.0 pcg LAB HEMETOLOGY METHOD 08/06/2024 11:00 AM [facility] MCHC 32.7 32.0 - [...] LAB HEMETOLOGY METHOD 08/06/2024 11:00 AM EDT [facility] NRBC 0.0 <1.0 % LAB HEMETOLOGY METHOD 08/06/2024 11:00 AM EDT [facility] NRBC Absolute 0.00 <0.10 K/mcL LAB HEMETOLOGY METHOD 08/06/2024 11:00 AM EDT [facility] Blood Venous blood specimen / Unknown Venipuncture / Unknown 08/06/2024 6:57 AM EDT 08/06/2024 10:59 AM EDT us Araceli Maya MD LAB BLOOD ORDERABLES Fin al Result [facility] [address] [place] [address], documented in this encounter Visit Diagnoses Diagnosis Essential (primary) hypertension Unspecified essential hypertension Anemia, unspecified Unspecified osteoarthritis, unspecified site documented in this encounter Care Teams Fisheries Enforcement Officer Relationship Specialty Start Date End Date Vivian Massey DO [address] [place] [address] PCP - General Internal Medicine 07/21/17 documented as of this encounter
--- OUTSIDE RECORDS SUMMARY | 2025-02-21 17:38 | XMS_ITS | Encounter Summary ---
Author Organization [facility] Address [address] [place] [address] Care Team Providers Care Draw Bench Operator Name Role Phone Vivian Massey Primary Care Provider +1- [phone] Encounter Details Date Type Department Care Team ([facility] st Contact Info) Description 10/02/2024 Lab Requisition [facility] - Main Lab [address] [place] [address] Araceli Maya MD [address] [place] [id number] Hypokalemia Social History Tobacco Use Types Packs/Day [...] LAB CHEMISTRY METHOD 10/03/2024 8:28 AM EDT [facility] Potassium 3.8 3.5 - 5.5 mmol/L LAB CHEMISTRY METHOD 10/03/2024 8:28 AM [facility] Chloride 101 96 - 110 mmol/L LAB CHEMISTRY METHOD 10/03/2024 8:28 AM [facility] CO2 34(H) 21 - 32 mmol/L LAB CHEMISTRY METHOD 10/03/2024 8:28 AM [facility] Anion Gap 3 3 - 11 LAB CHEMISTRY METHOD 10/03/2024 8:28 AM [facility] Glucose 79 70 - 100 mg/dL LAB CHEMISTRY METHOD 10/03/2024 8:28 AM [facility] BUN 15 5 - 25 mg/dL LAB CHEMISTRY METHOD 10/03/2024 8:28 AM [facility] Creatinine 0.88 0.50 - 1.10 mg/dL LAB CHEMISTRY METHOD 10/03/2024 8:28 AM [facility] eGFR 68 >=60 mL/min/1. 73m2 LAB CHEMISTRY METHOD 10/03/2024 8:28 AM [facility] Comment:Calculation based on the Chronic Kidney Disease Epidemiology Collaboration (CKD-EPI) equation refit without adjustment for race. BUN/Creatinine Ratio 17.0 LAB CHEMISTRY METHOD 10/03/2024 8:28 AM [facility] Calcium 9.1 8.5 - 10.5 mg/dL LAB CHEMISTRY METHOD 10/03/2024 8:28 AM [facility] Blood Venous blood specimen / Unknown Venipuncture / Unknown 10/03/2024 5:51 AM EDT 10/03/2024 7:39 AM EDT us Araceli Maya MD LAB BLOOD ORDERABLES Fin al Result [facility] [address] [place] [address], documented in this encounter Visit Diagnoses Diagnosis Hypokalemia Hypopotassemia documented in this encounter Care Teams Draw Bench Operator Relationship Specialty Start Date End Date Vivian Massey DO [address] [place] [address] PCP - General Internal Medicine 07/21/17 documented as of this encounter
--- OUTSIDE RECORDS SUMMARY | 2025-02-21 17:38 | XMS_ITS | Encounter Summary ---
Author Organization [facility] Address [address] [place] [address] Care Team Providers Care Commissioning Agent Name Role Phone Vivian Massey DO Primary Care Provider +1- [phone] Encounter Details Date Type Department Care Team ([facility] st Contact Info) Description 09/30/2024 Lab Requisition [facility] - Main Lab 299 [facility] [place] [address] Araceli Maya MD [address] [phone] Essential (primary) hypertension; Anemia, unspecified; Unspecified osteoarthritis, [...] Complete blood count (10/01/2024 5:36 AM EDT) [facility] WBC 4.2(L) 4.8 - 10.8 K/mcL LAB HEMETOLOGY METHOD 10/01/2024 7:51 AM [facility] RBC 3.40(L) 3.80 - 4.80 M/mcL LAB HEMETOLOGY METHOD 10/01/2024 7:51 AM [facility] Hemoglobin 10.8(L) 11.5 - 16.0 g/dL LAB HEMETOLOGY METHOD 10/01/2024 7:51 AM [facility] Hematocrit 33.5(L) 35.0 - 47.0 % LAB HEMETOLOGY METHOD 10/01/2024 7:51 AM [facility] MCV 97.7 79.0 - 98.0 FL LAB HEMETOLOGY METHOD 10/01/2024 7:51 AM [facility] MCH 31.5 27.0 - 32.0 pcg LAB HEMETOLOGY METHOD 10/01/2024 7:51 AM [facility] MCHC 32.2 32.0 - 37.0 g/dL LAB HEMETOLOGY METHOD 10/01/2024 7:51 AM [facility] RDW 14.5 11.0 - 15.0 % LAB HEMETOLOGY METHOD 10/01/2024 7:51 AM [facility] Platelets 243 130 - 400 K/mcL LAB HEMETOLOGY METHOD 10/01/2024 7:51 AM [facility] MPV 9.4 7.0 - 11.0 FL LAB HEMETOLOGY METHOD 10/01/2024 7:51 AM [facility] NRBC 0.0 <1.0 % LAB HEMETOLOGY METHOD 10/01/2024 7:51 AM [facility] NRBC Absolute 0.00 <0.10 K/mcL LAB HEMETOLOGY METHOD 10/01/2024 7:51 AM [facility] Blood Venous blood specimen / Unknown Venipuncture / Unknown 10/01/2024 5:36 AM EDT 10/01/2024 6:57 AM EDT us Araceli Maya MD LAB BLOOD ORDERABLES Fin al Result [facility] [address] [place] [address], [place] [phone] * (ABNORMAL) Basic metabolic panel (10/01/2024 5:36 AM EDT) Sodium 138 133 - 145 mmol/L LAB CHEMISTRY METHOD 10/01/2024 8:12 AM [facility] Potassium 3.3(L) 3.5 - 5.5 mmol/L LAB CHEMISTRY METHOD 10/01/2024 8:12 AM [facility] Chloride 100 96 - 110 mmol/L LAB CHEMISTRY METHOD 10/01/2024 8:12 AM [facility] CO2 32 21 - 32 mmol/L LAB CHEMISTRY METHOD 10/01/2024 8:12 AM [facility] Anion Gap 6 3 - 11 LAB CHEMISTRY METHOD 10/01/2024 8:12 AM [facility] Glucose 82 70 - 100 mg/dL LAB CHEMISTRY METHOD 10/01/2024 8:12 AM [facility] BUN 14 5 - 25 mg/dL LAB CHEMISTRY METHOD 10/01/2024 8:12 AM [facility] Creatinine 0.81 0.50 - 1.10 mg/dL LAB CHEMISTRY METHOD 10/01/2024 8:12 AM [facility] eGFR 75 >=60 mL/min/1. 73m2 LAB CHEMISTRY METHOD 10/01/2024 8:12 AM EDT [facility] Comment:Calculation based on the Chronic Kidney Disease Epidemiology Collaboration (CKD-EPI) equation refit without adjustment for race. BUN/Creatinine Ratio 17.3 LAB CHEMISTRY METHOD 10/01/2024 8:12 AM EDT [facility] Calcium 8.8 8.5 - 10.5 mg/dL LAB CHEMISTRY METHOD 10/01/2024 8:12 AM T [facility] Blood Venous blood specimen / Unknown Venipuncture / Unknown 10/01/2024 5:36 AM EDT 10/01/2024 6:57 AM EDT us Araceli Maya MD LAB BLOOD ORDERABLES Fin al Result [facility] [address] [place] [address], documented in this encounter Visit Diagnoses Diagnosis Essential (primary) hypertension Unspecified essential hypertension Anemia, unspecified Unspecified osteoarthritis, unspecified site documented in this encounter Care Teams Commissioning Agent Relationship Specialty Start Date End Date Vivian Massey DO [address] [place] [address] PCP - General Internal Medicine 07/21/17 documented as of this encounter
--- OUTSIDE RECORDS SUMMARY | 2025-02-21 17:38 | XMS_ITS | Encounter Summary ---
Author Organization [facility] Address [address] [place] [address] Care Team Providers Care Business Excellence Leader Name Role Phone Vivian Massey Primary Care Provider +1- [phone] Encounter Details Date Type Department Care Team ([facility] st Contact Info) Description 10/07/2024 Lab Requisition [facility] - Main Lab 299 [facility] [place] [address] Araceli Maya MD [address] [phone] Urinary tract infection, site not specified Social [...] reflex microscopic (10/06/2024 8:10 AM EDT) Specific [place] Urine 1.022 1.003 - 1.030 LAB URINALYSIS - AUTOMATED METHOD 10/07/2024 12:13 PM [facility] pH, Urine 7.0 5.0 - 8.0 pH LAB URINALYSIS - AUTOMATED METHOD 10/07/2024 12:13 PM [facility] Leukocytes, Urine Large(A) Negative LAB URINALYSIS - AUTOMATED METHOD 10/07/2024 12:13 PM [facility] Nitrite, Urine Positive(A) Negative LAB URINALYSIS - AUTOMATED METHOD 10/07/2024 12:13 PM [facility] Protein, Urine 100(A) <=Trace mg/dL LAB URINALYSIS - AUTOMATED METHOD 10/07/2024 12:13 PM [facility] Glucose, Urine Negative Negative mg/dL LAB URINALYSIS - AUTOMATED METHOD 10/07/2024 12:13 PM [facility] Ketones, Urine Trace(A) Negative mg/dL LAB URINALYSIS - AUTOMATED METHOD 10/07/2024 12:13 PM [facility] Urobilinogen , Urine 1.0 0.2 - 1.0 mg/dL LAB URINALYSIS - AUTOMATED METHOD 10/07/2024 12:13 PM [facility] Bilirubin, Urine Negative Negative LAB URINALYSIS - AUTOMATED METHOD 10/07/2024 12:13 PM [facility] Blood, Urine Large(A) Negative LAB URINALYSIS - AUTOMATED METHOD 10/07/2024 12:13 PM [facility] RBC, Urine 20.0(H) 0 - 4 /HPF LAB URINALYSIS - AUTOMATED METHOD 10/07/2024 12:13 PM [facility] WBC, Urine 212.9(H) 0 - 4 /HPF LAB URINALYSIS - AUTOMATED METHOD 10/07/2024 12:13 PM EDT [facility] Squamous Epithelial, Urine 70(H) 0 - 60 /LPF LAB URINALYSIS - AUTOMATED METHOD 10/07/2024 12:13 PM EDT [facility] Non-Squamous Epithelial, Urine 2-5 TRANSITIONAL EPI /LPF LAB URINALYSIS - AUTOMATED METHOD 10/07/2024 12:13 PM EDT [facility] Crystals, Urine MOD CALCIUM OXALATE /LPF LAB URINALYSIS - AUTOMATED METHOD 10/07/2024 12:13 PM EDT [facility] Bacteria, Urine Moderate(A) Negative /HPF LAB URINALYSIS - AUTOMATED METHOD 10/07/2024 12:13 PM EDT [facility] Hyaline Casts, Urine 1.6 0 - 3 /LPF LAB URINALYSIS - AUTOMATED METHOD 10/07/2024 12:13 PM [facility] Urine Urine specimen obtained by clean catch procedure / Unknown Non-blood Collection / Unknown 10/06/2024 8:10 AM EDT 10/07/2024 11:17 AM EDT Araceli Maya MD LAB URINE ORDERABLES Fin al Result [facility] [address] [place] [address], * (ABNORMAL) Culture urine (10/06/2024 8:10 AM EDT) Culture, Urine >=100,000 CFU/mL Escherichia coli(A) RADHAMES 10/10/2024 7:49 AM EDT [facility] Comment: This is an edited result. Previous organism was Gram negative bacilli on 10/08/2024 at 0843 EDT. Culture, Urine 10,000-49,000 CFU/mL Morganella morganii ssp morganii(A) RADHAMES 10/10/2024 7:49 AM EDT [facility] Comment: The organism value [...] MICROBIOLOGY - GENER AL ORDERABLES Final Result [facility] [address] [place] [address], documented in this encounter Visit Diagnoses Diagnosis Urinary tract infection, site not specified documented in this encounter Care Teams Business Excellence Leader Relationship Specialty Start Date End Date Vivian Massey DO [address] [place] [address] PCP - General Internal Medicine 07/21/17 documented as of this encounter
--- OUTSIDE RECORDS SUMMARY | 2025-02-21 17:38 | XMS_ITS | Encounter Summary ---
Author Organization [facility] Address [address] [place] [address] Care Team Providers Care Service Rig Operator Name Role Phone Vivian Massey DO Primary Care Provider +1- [phone] Encounter Details Date Type Department Care Team ([facility] st Contact Info) Description 08/19/2024 Lab Requisition [facility] - Main Lab 299 [facility] [place] [address] Araceli Maya MD [address] [phone] Essential (primary) hypertension; Anemia, unspecified; Unspecified osteoarthritis, [...] Complete blood count (08/20/2024 6:15 AM EDT) [facility] Signature WBC 3.9(L) 4.8 - 10.8 K/mcL LAB HEMETOLOGY METHOD 08/20/2024 8:19 AM [facility] LAB RBC 3.50(L) 3.80 - 4.80 M/mcL LAB HEMETOLOGY METHOD 08/20/2024 8:19 AM [facility] LAB Hemoglobin 10.7(L) 11.5 - 16.0 g/dL LAB HEMETOLOGY METHOD 08/20/2024 8:19 AM [facility] LAB Hematocrit 33.3(L) 35.0 - 47.0 % LAB HEMETOLOGY METHOD 08/20/2024 8:19 AM [facility] LAB MCV 96.5 79.0 - 98.0 FL LAB HEMETOLOGY METHOD 08/20/2024 8:19 AM [facility] LAB MCH 31.0 27.0 - 32.0 pcg LAB HEMETOLOGY METHOD 08/20/2024 8:19 AM [facility] LAB MCHC 32.1 32.0 - 37.0 g/dL LAB HEMETOLOGY METHOD 08/20/2024 8:19 AM [facility] LAB RDW 14.0 11.0 - 15.0 % LAB HEMETOLOGY METHOD 08/20/2024 8:19 AM [facility] LAB Platelets 231 130 - 400 K/mcL LAB HEMETOLOGY METHOD 08/20/2024 8:19 AM [facility] LAB MPV 9.3 7.0 - 11.0 FL LAB HEMETOLOGY METHOD 08/20/2024 8:19 AM [facility] LAB NRBC 0.0 <1.0 % LAB HEMETOLOGY METHOD 08/20/2024 8:19 AM [facility] LAB NRBC Absolute 0.00 <0.10 K/mcL LAB HEMETOLOGY METHOD 08/20/2024 8:19 AM [facility] LAB Blood Venous blood specimen / Unknown Venipuncture / Unknown 08/20/2024 6:15 AM EDT 08/20/2024 8:00 AM EDT us Araceli Maya MD LAB BLOOD ORDERABLES Fin al Result [facility] LAB [address] [place] [address], * (ABNORMAL) Basic metabolic panel (08/20/2024 6:15 AM EDT) Sodium 134 133 - 145 mmol/L LAB CHEMISTRY METHOD 08/20/2024 8:42 AM [facility] LAB Potassium 3.2(L) 3.5 - 5.5 mmol/L LAB CHEMISTRY METHOD 08/20/2024 8:42 AM [facility] LAB Chloride 97 96 - 110 mmol/L LAB CHEMISTRY METHOD 08/20/2024 8:42 AM [facility] CO2 34(H) 21 - 32 mmol/L LAB CHEMISTRY METHOD 08/20/2024 8:42 AM [facility] LAB Anion Gap 3 3 - 11 LAB CHEMISTRY METHOD 08/20/2024 8:42 AM [facility] Glucose 90 70 - 100 mg/dL LAB CHEMISTRY METHOD 08/20/2024 8:42 AM [facility] BUN 15 5 - 25 mg/dL LAB CHEMISTRY METHOD 08/20/2024 8:42 AM [facility] Creatinine 0.76 0.50 - 1.10 mg/dL LAB CHEMISTRY METHOD 08/20/2024 8:42 AM [facility] LAB eGFR 81 >=60 mL/min/1. 73m2 LAB CHEMISTRY METHOD 08/20/2024 8:42 AM EDT [facility] Comment:Calculation based on the Chronic Kidney Disease Epidemiology Collaboration (CKD-EPI) equation refit without adjustment for race. BUN/Creatinine Ratio 19.7 LAB CHEMISTRY METHOD 08/20/2024 8:42 AM EDT [facility] Calcium 8.9 8.5 - 10.5 mg/dL LAB CHEMISTRY METHOD 08/20/2024 8:42 AM EDT [facility] Blood Venous blood specimen / Unknown Venipuncture / Unknown 08/20/2024 6:15 AM EDT 08/20/2024 8:00 AM EDT us Araceli Maya MD LAB BLOOD ORDERABLES Fin al Result [facility] [address] [place] [address], documented in this encounter Visit Diagnoses Diagnosis Essential (primary) hypertension Unspecified essential hypertension Anemia, unspecified Unspecified osteoarthritis, unspecified site documented in this encounter Care Teams Service Rig Operator Relationship Specialty Start Date End Date Vivian Massey DO [address] [place] [address] PCP - General Internal Medicine 07/21/17 documented as of this encounter
--- OUTSIDE RECORDS SUMMARY | 2025-02-21 17:38 | XMS_ITS | Encounter Summary ---
Author Organization [facility] Address [address] [place] [address] Care Team Providers Care Wire Stripper Name Role Phone Vivian Massey Primary Care Provider +1- [phone] Encounter Details Date Type Department Care Team ([facility] st Contact Info) Description 09/15/2024 Lab Requisition [facility] - Main Lab 299 [facility] [place] [address] Annalisa Kulkarni PA [address] [place] [address] Altered mental status, unspecified Social [...] Urinalysis with reflex microscopic (09/14/2024 11:00 AM [facility]) Specific [place] Urine 1.028 1.003 - 1.030 LAB URINALYSIS - AUTOMATED METHOD 09/15/2024 10:40 AM [facility] pH, Urine 6.0 5.0 - 8.0 pH LAB URINALYSIS - AUTOMATED METHOD 09/15/2024 10:40 AM [facility] Leukocytes, Urine Moderate(A) Negative LAB URINALYSIS - AUTOMATED METHOD 09/15/2024 10:40 AM [facility] Nitrite, Urine Positive(A) Negative LAB URINALYSIS - AUTOMATED METHOD 09/15/2024 10:40 AM [facility] Protein, Urine 30(A) <=Trace mg/dL LAB URINALYSIS - AUTOMATED METHOD 09/15/2024 10:40 AM [facility] Glucose, Urine Negative Negative mg/dL LAB URINALYSIS - AUTOMATED METHOD 09/15/2024 10:40 AM [facility] Ketones, Urine Trace(A) Negative mg/dL LAB URINALYSIS - AUTOMATED METHOD 09/15/2024 10:40 AM [facility] Urobilinogen , Urine 1.0 0.2 - 1.0 mg/dL LAB URINALYSIS - AUTOMATED METHOD 09/15/2024 10:40 AM [facility] Bilirubin, Urine Negative Negative LAB URINALYSIS - AUTOMATED METHOD 09/15/2024 10:40 AM [facility] Blood, Urine Trace(A) Negative LAB URINALYSIS - AUTOMATED METHOD 09/15/2024 10:40 AM [facility] RBC, Urine 2.0 0 - 4 /HPF LAB URINALYSIS - AUTOMATED METHOD 09/15/2024 10:40 AM [facility] WBC, Urine 49.2(H) 0 - 4 /HPF LAB URINALYSIS - AUTOMATED METHOD 09/15/2024 10:40 AM EDT [facility] Squamous Epithelial, Urine 58 0 - 60 /LPF LAB URINALYSIS - AUTOMATED METHOD 09/15/2024 10:40 AM EDT [facility] Crystals, Urine MOD CALCIUM OXALATE /LPF LAB URINALYSIS - AUTOMATED METHOD 09/15/2024 10:40 AM EDT [facility] Bacteria, Urine Many(A) Negative /HPF LAB URINALYSIS - AUTOMATED METHOD 09/15/2024 10:40 AM EDT [facility] Hyaline Casts, Urine 0.0 0 - 3 /LPF LAB URINALYSIS - AUTOMATED METHOD 09/15/2024 10:40 AM EDT [facility] Urine Urine specimen obtained by clean catch procedure / Unknown Non-blood Collection / Unknown 09/14/2024 11:00 AM EDT 09/15/2024 8:28 AM EDT us Annalisa KELLY LAB URINE ORDERABLES Final Resul t [facility] [address] [place] [address], * (ABNORMAL) Culture urine (09/14/2024 11:00 AM EDT) Culture, Urine >100,000 CFU/mL Klebsiella pneumoniae ssp pneumoniae(A) RADHAMES 09/18/2024 7:38 AM EDT [facility] Comment: This is an edited result. Previous organism was Gram negative bacilli on 09/16/2024 at 1010 EDT. Culture, Urine 50,000-100,00 0 CFU/mL Aerococcus urinae(A) RADHAMES 09/18/2024 7:38 AM EDT [facility] Comment: Susceptibility testing not routinely [...] MICROBIOLOGY - GENERAL ORDER BABAR Final Result [facility] [address] [place] [address], documented in this encounter Visit Diagnoses Diagnosis Altered mental status, unspecified documented in this encounter Care Teams Wire Stripper Relationship Specialty Start Date End Date Vivian Massey DO [address] [place] [address] PCP - General Internal Medicine 07/21/17 documented as of this encounter
--- OUTSIDE RECORDS SUMMARY | 2025-02-21 17:39 | XMS_ITS | Encounter Summary ---
Author Organization [facility] Address [address] [place] [address] Care Team Providers Care Utility Technician Name Role Phone Vivian Massey DO Primary Care Provider +1- [phone] Encounter Details Date Type Department Care Team ([facility] st Contact Info) Description 10/07/2024 Lab Requisition [facility] - Main Lab 299 [facility] [place] [address] Araceli Maya MD [address] [id number] Essential (primary) hypertension; Anemia, unspecified; Unspecified osteoarthritis, [...] Complete blood count (10/08/2024 5:15 AM EDT) [facility] WBC 5.4 4.8 - 10.8 K/mcL LAB HEMETOLOGY METHOD 10/08/2024 8:04 AM [facility] LAB RBC 3.30(L) 3.80 - 4.80 M/mcL LAB HEMETOLOGY METHOD 10/08/2024 8:04 AM [facility] Hemoglobin 10.2(L) 11.5 - 16.0 g/dL LAB HEMETOLOGY METHOD 10/08/2024 8:04 AM [facility] LAB Hematocrit 30.8(L) 35.0 - 47.0 % LAB HEMETOLOGY METHOD 10/08/2024 8:04 AM [facility] LAB MCV 94.5 79.0 - 98.0 FL LAB HEMETOLOGY METHOD 10/08/2024 8:04 AM [facility] MCH 31.3 27.0 - 32.0 pcg LAB HEMETOLOGY METHOD 10/08/2024 8:04 AM [facility] MCHC 33.1 32.0 - 37.0 g/dL LAB HEMETOLOGY METHOD 10/08/2024 8:04 AM [facility] RDW 14.5 11.0 - 15.0 % LAB HEMETOLOGY METHOD 10/08/2024 8:04 AM [facility] Platelets 222 130 - 400 K/mcL LAB HEMETOLOGY METHOD 10/08/2024 8:04 AM [facility] MPV 9.2 7.0 - 11.0 FL LAB HEMETOLOGY METHOD 10/08/2024 8:04 AM [facility] NRBC 0.0 <1.0 % LAB HEMETOLOGY METHOD 10/08/2024 8:04 AM [facility] NRBC Absolute 0.00 <0.10 K/mcL LAB HEMETOLOGY METHOD 10/08/2024 8:04 AM [facility] Blood Venous blood specimen / Unknown Venipuncture / Unknown 10/08/2024 5:15 AM EDT 10/08/2024 7:47 AM EDT us Araceli Maya MD LAB BLOOD ORDERABLES Fin al Result [facility] [address] [place] [address], * (ABNORMAL) Basic metabolic panel (10/08/2024 5:15 AM EDT) Sodium 131(L) 133 - 145 mmol/L LAB CHEMISTRY METHOD 10/08/2024 9:09 AM [facility] Potassium 3.6 3.5 - 5.5 mmol/L LAB CHEMISTRY METHOD 10/08/2024 9:09 AM [facility] Chloride 93(L) 96 - 110 mmol/L LAB CHEMISTRY METHOD 10/08/2024 9:09 AM [facility] CO2 33(H) 21 - 32 mmol/L LAB CHEMISTRY METHOD 10/08/2024 9:09 AM [facility] Anion Gap 5 3 - 11 LAB CHEMISTRY METHOD 10/08/2024 9:09 AM [facility] Glucose 79 70 - 100 mg/dL LAB CHEMISTRY METHOD 10/08/2024 9:09 AM [facility] BUN 14 5 - 25 mg/dL LAB CHEMISTRY METHOD 10/08/2024 9:09 AM [facility] Creatinine 0.83 0.50 - 1.10 mg/dL LAB CHEMISTRY METHOD 10/08/2024 9:09 AM [facility] LAB eGFR 73 >=60 mL/min/1. 73m2 LAB CHEMISTRY METHOD 10/08/2024 9:[address] [facility] Comment:Calculation based on the Chronic Kidney Disease Epidemiology Collaboration (CKD-EPI) equation refit without adjustment for race. BUN/Creatinine Ratio 16.9 LAB CHEMISTRY METHOD 10/08/2024 9:[address] [facility] Calcium 8.7 8.5 - 10.5 mg/dL LAB CHEMISTRY METHOD 10/08/2024 9:[address] [facility] Blood Venous blood specimen / Unknown Venipuncture / Unknown 10/08/2024 5:15 AM EDT 10/08/2024 7:47 AM EDT us Araceli Maya MD LAB BLOOD ORDERABLES Fin al Result [facility] [address] [place] [address], documented in this encounter Visit Diagnoses Diagnosis Essential (primary) hypertension Unspecified essential hypertension Anemia, unspecified Unspecified osteoarthritis, unspecified site documented in this encounter Care Teams Utility Technician Relationship Specialty Start Date End Date Vivian Massey DO [address] [place] [address] PCP - General Internal Medicine 07/21/17 documented as of this encounter
--- OUTSIDE RECORDS SUMMARY | 2025-02-21 17:39 | XMS_ITS | Encounter Summary ---
Author Organization [facility] Address [address] [place] [address] Care Team Providers Care Still Cleaner Name Role Phone Vivian Massey DO Primary Care Provider +1- [phone] Encounter Details Date Type Department Care Team ([facility] st Contact Info) Description 09/09/2024 Lab Requisition [facility] - Main Lab 299 [facility] [place] [address] Araceli Maya MD [address] [phone] Essential (primary) hypertension; Anemia, unspecified; Unspecified osteoarthritis, [...] Complete blood count (09/10/2024 6:14 AM EDT) [facility] Signature WBC 4.6(L) 4.8 - 10.8 K/mcL LAB HEMETOLOGY METHOD 09/10/2024 8:06 AM [facility] LAB RBC 3.50(L) 3.80 - 4.80 M/mcL LAB HEMETOLOGY METHOD 09/10/2024 8:06 AM [facility] LAB Hemoglobin 10.9(L) 11.5 - 16.0 g/dL LAB HEMETOLOGY METHOD 09/10/2024 8:06 AM [facility] LAB Hematocrit 34.1(L) 35.0 - 47.0 % LAB HEMETOLOGY METHOD 09/10/2024 8:06 AM [facility] LAB MCV 98.0 79.0 - 98.0 FL LAB HEMETOLOGY METHOD 09/10/2024 8:06 AM [facility] LAB MCH 31.3 27.0 - 32.0 pcg LAB HEMETOLOGY METHOD 09/10/2024 8:06 AM [facility] LAB MCHC 32.0 32.0 - 37.0 g/dL LAB HEMETOLOGY METHOD 09/10/2024 8:06 AM [facility] LAB RDW 14.4 11.0 - 15.0 % LAB HEMETOLOGY METHOD 09/10/2024 8:06 AM [facility] LAB Platelets 239 130 - 400 K/mcL LAB HEMETOLOGY METHOD 09/10/2024 8:06 AM [facility] LAB MPV 9.1 7.0 - 11.0 FL LAB HEMETOLOGY METHOD 09/10/2024 8:06 AM [facility] NRBC 0.0 <1.0 % LAB HEMETOLOGY METHOD 09/10/2024 8:06 AM [facility] LAB NRBC Absolute 0.00 <0.10 K/mcL LAB HEMETOLOGY METHOD 09/10/2024 8:06 AM [facility] Blood Venous blood specimen / Unknown Venipuncture / Unknown 09/10/2024 6:14 AM EDT 09/10/2024 7:30 AM EDT us Araceli Maya MD LAB BLOOD ORDERABLES Fin al Result [facility] [address] [place] [address], [place] [phone] * (ABNORMAL) Basic metabolic panel (09/10/2024 6:14 AM EDT) Sodium 138 133 - 145 mmol/L LAB CHEMISTRY METHOD 09/10/2024 8:28 AM [facility] Potassium 3.6 3.5 - 5.5 mmol/L LAB CHEMISTRY METHOD 09/10/2024 8:28 AM [facility] Chloride 100 96 - 110 mmol/L LAB CHEMISTRY METHOD 09/10/2024 8:28 AM [facility] CO2 33(H) 21 - 32 mmol/L LAB CHEMISTRY METHOD 09/10/2024 8:28 AM [facility] Anion Gap 5 3 - 11 LAB CHEMISTRY METHOD 09/10/2024 8:28 AM [facility] Glucose 86 70 - 100 mg/dL LAB CHEMISTRY METHOD 09/10/2024 8:28 AM [facility] BUN 18 5 - 25 mg/dL LAB CHEMISTRY METHOD 09/10/2024 8:28 AM [facility] Creatinine 0.81 0.50 - 1.10 mg/dL LAB CHEMISTRY METHOD 09/10/2024 8:28 AM [facility] eGFR 75 >=60 mL/min/1. 73m2 LAB CHEMISTRY METHOD 09/10/2024 8:[address] [facility] Comment:Calculation based on the Chronic Kidney Disease Epidemiology Collaboration (CKD-EPI) equation refit without adjustment for race. BUN/Creatinine Ratio 22.2 LAB CHEMISTRY METHOD 09/10/2024 8:[address] [facility] Calcium 8.5 8.5 - 10.5 mg/dL LAB CHEMISTRY METHOD 09/10/2024 8:[address] [facility] Blood Venous blood specimen / Unknown Venipuncture / Unknown 09/10/2024 6:14 AM EDT 09/10/2024 7:30 AM EDT us Araceli Maya MD LAB BLOOD ORDERABLES Fin al Result [facility] [address] [place] [address], [place] [phone] documented in this encounter Visit Diagnoses Diagnosis Essential (primary) hypertension Unspecified essential hypertension Anemia, unspecified Unspecified osteoarthritis, unspecified site documented in this encounter Care Teams Still Cleaner Relationship Specialty Start Date End Date Vivian Massey DO [address] [place] [address] PCP - General Internal Medicine 07/21/17 documented as of this encounter
--- OUTSIDE RECORDS SUMMARY | 2025-02-21 17:39 | XMS_ITS | Encounter Summary ---
Author Organization [facility] Address [address] [place] [address] Care Team Providers Care Meat Blender Name Role Phone Vivian Massey DO Primary Care Provider +1- [phone] Encounter Details Date Type Department Care Team ([facility] st Contact Info) Description 09/03/2024 Lab Requisition [facility] - Main Lab 299 [facility] [place] [address] Araceli Maya MD [address] [phone] Essential (primary) hypertension; Anemia, unspecified; Unspecified osteoarthritis, [...] mmol/L LAB CHEMISTRY METHOD 09/03/2024 11:20 AM [facility] Potassium 3.2(L) 3.5 - 5.5 mmol/L LAB CHEMISTRY METHOD 09/03/2024 11:20 AM [facility] Chloride 100 96 - 110 mmol/L LAB CHEMISTRY METHOD 09/03/2024 11:20 AM [facility] CO2 33(H) 21 - 32 mmol/L LAB CHEMISTRY METHOD 09/03/2024 11:20 AM [facility] Anion Gap 8 3 - 11 LAB CHEMISTRY METHOD 09/03/2024 11:20 AM [facility] Glucose 84 70 - 100 mg/dL LAB CHEMISTRY METHOD 09/03/2024 11:20 AM [facility] BUN 15 5 - 25 mg/dL LAB CHEMISTRY METHOD 09/03/2024 11:20 AM [facility] Creatinine 0.89 0.50 - 1.10 mg/dL LAB CHEMISTRY METHOD 09/03/2024 11:20 AM [facility] LAB eGFR 67 >=60 mL/min/1. 73m2 LAB CHEMISTRY METHOD 09/03/2024 11:20 AM [facility] Comment:Calculation based on the Chronic Kidney Disease Epidemiology Collaboration (CKD-EPI) equation refit without adjustment for race. BUN/Creatinine Ratio 16.9 LAB CHEMISTRY METHOD 09/03/2024 11:20 AM [facility] Calcium 8.8 8.5 - 10.5 mg/dL LAB CHEMISTRY METHOD 09/03/2024 11:20 AM [facility] Blood Venous blood specimen / Unknown Venipuncture / Unknown 09/03/2024 6:42 AM EDT 09/03/2024 9:10 AM EDT us Araceli Maya MD LAB BLOOD ORDERABLES Fin al Result [facility] [address] [place] [address], * (ABNORMAL) Complete blood count (09/03/2024 6:42 AM EDT) WBC 4.7(L) 4.8 - 10.8 K/mcL LAB HEMETOLOGY METHOD 09/03/2024 10:02 AM EDT [facility] RBC 3.50(L) 3.80 - 4.80 M/mcL LAB HEMETOLOGY METHOD 09/03/2024 10:02 AM [facility] Hemoglobin 10.8(L) 11.5 - 16.0 g/dL LAB HEMETOLOGY METHOD 09/03/2024 10:02 AM [facility] Hematocrit 34.4(L) 35.0 - 47.0 % LAB HEMETOLOGY METHOD 09/03/2024 10:02 AM [facility] MCV 97.2 79.0 - 98.0 FL LAB HEMETOLOGY METHOD 09/03/2024 10:02 AM [facility] MCH 30.5 27.0 - 32.0 pcg LAB HEMETOLOGY METHOD 09/03/2024 10:02 AM [facility] MCHC 31.4(L) 32.0 - 37.0 g/dL LAB HEMETOLOGY METHOD 09/03/2024 10:02 AM [facility] RDW 13.9 11.0 - 15.0 % LAB HEMETOLOGY METHOD 09/03/2024 10:02 AM [facility] Platelets 253 130 - 400 K/mcL LAB HEMETOLOGY METHOD 09/03/2024 10:02 AM [facility] MPV 9.1 7.0 - 11.0 FL LAB HEMETOLOGY METHOD 09/03/2024 10:02 AM EDT [facility] NRBC 0.0 <1.0 % LAB HEMETOLOGY METHOD 09/03/2024 10:02 AM EDT [facility] NRBC Absolute 0.00 <0.10 K/mcL LAB HEMETOLOGY METHOD 09/03/2024 10:02 AM EDT [facility] Blood Venous blood specimen / Unknown Venipuncture / Unknown 09/03/2024 6:42 AM EDT 09/03/2024 9:10 AM EDT us Araceli Maya MD LAB BLOOD ORDERABLES Fin al Result [facility] [address] [place] [address], documented in this encounter Visit Diagnoses Diagnosis Essential (primary) hypertension Unspecified essential hypertension Anemia, unspecified Unspecified osteoarthritis, unspecified site documented in this encounter Care Teams Meat Blender Relationship Specialty Start Date End Date Vivian Massey DO [address] [place] [address] PCP - General Internal Medicine 07/21/17 documented as of this encounter
--- OUTSIDE RECORDS SUMMARY | 2025-02-21 17:39 | XMS_ITS | Encounter Summary ---
Author Organization [facility] Address [address] [place] [address] Care Team Providers Care Stain Remover Name Role Phone Vivian Massey Primary Care Provider +1- [phone] Encounter Details Date Type Department Care Team ([facility] st Contact Info) Description 09/05/2024 Lab Requisition [facility] - Main Lab [address] [place] [address] Araceli Maya MD [address] [place] [id number] Hypokalemia Social History Tobacco Use Types Packs/Day [...] LAB CHEMISTRY METHOD 09/06/2024 7:53 AM EDT [facility] Potassium 3.6 3.5 - 5.5 mmol/L LAB CHEMISTRY METHOD 09/06/2024 7:53 AM [facility] Chloride 99 96 - 110 mmol/L LAB CHEMISTRY METHOD 09/06/2024 7:53 AM [facility] CO2 33(H) 21 - 32 mmol/L LAB CHEMISTRY METHOD 09/06/2024 7:53 AM [facility] Anion Gap 6 3 - 11 LAB CHEMISTRY METHOD 09/06/2024 7:53 AM [facility] Glucose 86 70 - 100 mg/dL LAB CHEMISTRY METHOD 09/06/2024 7:53 AM [facility] BUN 12 5 - 25 mg/dL LAB CHEMISTRY METHOD 09/06/2024 7:53 AM [facility] Creatinine 0.83 0.50 - 1.10 mg/dL LAB CHEMISTRY METHOD 09/06/2024 7:53 AM [facility] eGFR 73 >=60 mL/min/1. 73m2 LAB CHEMISTRY METHOD 09/06/2024 7:53 AM [facility] Comment:Calculation based on the Chronic Kidney Disease Epidemiology Collaboration (CKD-EPI) equation refit without adjustment for race. BUN/Creatinine Ratio 14.5 LAB CHEMISTRY METHOD 09/06/2024 7:53 AM [facility] Calcium 9.0 8.5 - 10.5 mg/dL LAB CHEMISTRY METHOD 09/06/2024 7:53 AM [facility] Blood Venous blood specimen / Unknown Venipuncture / Unknown 09/06/2024 5:51 AM EDT 09/06/2024 6:58 AM EDT us Araceli Maya MD LAB BLOOD ORDERABLES Fin al Result [facility] [address] [place] [address], documented in this encounter Visit Diagnoses Diagnosis Hypokalemia Hypopotassemia documented in this encounter Care Teams Stain Remover Relationship Specialty Start Date End Date Vivian Massey DO [address] [place] [address] PCP - General Internal Medicine 07/21/17 documented as of this encounter
--- OUTSIDE RECORDS SUMMARY | 2025-02-21 17:40 | XMS_ITS | Encounter Summary ---
Author Organization [facility] Address [address] [place] [address] Care Team Providers Care Manager Of Production Name Role Phone Vivian Massey DO Primary Care Provider +1- [phone] Encounter Details Date Type Department Care Team ([facility] st Contact Info) Description 08/26/2024 Lab Requisition [facility] - Main Lab [address] [facility] [place] [address] Araceli Maya MD [address] [phone] Essential (primary) hypertension; Anemia, unspecified; Unspecified osteoarthritis, [...] Complete blood count (08/27/2024 6:06 AM EDT) [facility] WBC 3.2(L) 4.8 - 10.8 K/mcL LAB HEMETOLOGY METHOD 08/27/2024 8:13 AM [facility] RBC 3.80 3.80 - 4.80 M/mcL LAB HEMETOLOGY METHOD 08/27/2024 8:13 AM [facility] LAB Hemoglobin 11.8 11.5 - 16.0 g/dL LAB HEMETOLOGY METHOD 08/27/2024 8:13 AM [facility] LAB Hematocrit 36.4 35.0 - 47.0 % LAB HEMETOLOGY METHOD 08/27/2024 8:13 AM [facility] LAB MCV 95.5 79.0 - 98.0 FL LAB HEMETOLOGY METHOD 08/27/2024 8:13 AM [facility] LAB MCH 31.0 27.0 - 32.0 pcg LAB HEMETOLOGY METHOD 08/27/2024 8:13 AM [facility] LAB MCHC 32.4 32.0 - 37.0 g/dL LAB HEMETOLOGY METHOD 08/27/2024 8:13 AM [facility] LAB RDW 14.0 11.0 - 15.0 % LAB HEMETOLOGY METHOD 08/27/2024 8:13 AM [facility] LAB Platelets 259 130 - 400 K/mcL LAB HEMETOLOGY METHOD 08/27/2024 8:13 AM [facility] MPV 9.2 7.0 - 11.0 FL LAB HEMETOLOGY METHOD 08/27/2024 8:13 AM [facility] LAB NRBC 0.0 <1.0 % LAB HEMETOLOGY METHOD 08/27/2024 8:13 AM [facility] LAB NRBC Absolute 0.00 <0.10 K/mcL LAB HEMETOLOGY METHOD 08/27/2024 8:13 AM [facility] Blood Venous blood specimen / Unknown Venipuncture / Unknown 08/27/2024 6:06 AM EDT 08/27/2024 7:07 AM EDT us Araceli Maya MD LAB BLOOD ORDERABLES Fin al Result [facility] [address] [place] [address], [place] [phone] * (ABNORMAL) Basic metabolic panel (08/27/2024 6:06 AM EDT) Sodium 137 133 - 145 mmol/L LAB CHEMISTRY METHOD 08/27/2024 8:42 AM [facility] Potassium 3.9 3.5 - 5.5 mmol/L LAB CHEMISTRY METHOD 08/27/2024 8:42 AM [facility] Chloride 97 96 - 110 mmol/L LAB CHEMISTRY METHOD 08/27/2024 8:42 AM [facility] CO2 34(H) 21 - 32 mmol/L LAB CHEMISTRY METHOD 08/27/2024 8:42 AM [facility] Anion Gap 6 3 - 11 LAB CHEMISTRY METHOD 08/27/2024 8:42 AM [facility] Glucose 83 70 - 100 mg/dL LAB CHEMISTRY METHOD 08/27/2024 8:42 AM [facility] BUN 13 5 - 25 mg/dL LAB CHEMISTRY METHOD 08/27/2024 8:42 AM [facility] Creatinine 0.86 0.50 - 1.10 mg/dL LAB CHEMISTRY METHOD 08/27/2024 8:42 AM [facility] eGFR 70 >=60 mL/min/1. 73m2 LAB CHEMISTRY METHOD 08/27/2024 8:42 AM [facility] LAB Comment:Calculation based on the Chronic Kidney Disease Epidemiology Collaboration (CKD-EPI) equation refit without adjustment for race. BUN/Creatinine Ratio 15.1 LAB CHEMISTRY METHOD 08/27/2024 8:[address] [facility] Calcium 8.5 8.5 - 10.5 mg/dL LAB CHEMISTRY METHOD 08/27/2024 8:[address] [facility] Blood Venous blood specimen / Unknown Venipuncture / Unknown 08/27/2024 6:06 AM EDT 08/27/2024 7:07 AM EDT us Araceli Maya MD LAB BLOOD ORDERABLES Fin al Result [facility] [address] [place] [address], documented in this encounter Visit Diagnoses Diagnosis Essential (primary) hypertension Unspecified essential hypertension Anemia, unspecified Unspecified osteoarthritis, unspecified site documented in this encounter Care Teams Manager Of Production Relationship Specialty Start Date End Date Vivian Massey DO [address] [place] [address] PCP - General Internal Medicine 07/21/17 documented as of this encounter
--- OUTSIDE RECORDS SUMMARY | 2025-02-21 17:40 | XMS_ITS | Encounter Summary ---
Author Organization [facility] Address [address] [place] [address] Care Team Providers Care Jeweler Apprentice Name Role Phone Vivian Massey DO Primary Care Provider +1- [phone] Encounter Details Date Type Department Care Team ([facility] st Contact Info) Description 09/23/2024 Lab Requisition [facility] - Main Lab 299 [facility] [place] [address] Araceli Maya MD [address] [phone] Essential (primary) hypertension; Anemia, unspecified; Unspecified osteoarthritis, [...] mmol/L LAB CHEMISTRY METHOD 09/24/2024 9:37 AM [facility] Potassium 3.3(L) 3.5 - 5.5 mmol/L LAB CHEMISTRY METHOD 09/24/2024 9:37 AM [facility] Chloride 99 96 - 110 mmol/L LAB CHEMISTRY METHOD 09/24/2024 9:37 AM [facility] CO2 31 21 - 32 mmol/L LAB CHEMISTRY METHOD 09/24/2024 9:37 AM [facility] Anion Gap 7 3 - 11 LAB CHEMISTRY METHOD 09/24/2024 9:37 AM [facility] Glucose 80 70 - 100 mg/dL LAB CHEMISTRY METHOD 09/24/2024 9:37 AM [facility] BUN 12 5 - 25 mg/dL LAB CHEMISTRY METHOD 09/24/2024 9:37 AM [facility] Creatinine 0.73 0.50 - 1.10 mg/dL LAB CHEMISTRY METHOD 09/24/2024 9:37 AM [facility] LAB eGFR 85 >=60 mL/min/1. 73m2 LAB CHEMISTRY METHOD 09/24/2024 9:37 AM [facility] LAB Comment:Calculation based on the Chronic Kidney Disease Epidemiology Collaboration (CKD-EPI) equation refit without adjustment for race. BUN/Creatinine Ratio 16.4 LAB CHEMISTRY METHOD 09/24/2024 9:37 AM [facility] Calcium 9.2 8.5 - 10.5 mg/dL LAB CHEMISTRY METHOD 09/24/2024 9:37 AM [facility] Blood Venous blood specimen / Unknown Venipuncture / Unknown 09/24/2024 6:13 AM EDT 09/24/2024 8:25 AM EDT us Araceli Maya MD LAB BLOOD ORDERABLES Fin al Result [facility] [address] [place] [address], * (ABNORMAL) Complete blood count (09/24/2024 6:13 AM EDT) WBC 4.4(L) 4.8 - 10.8 K/mcL LAB HEMETOLOGY METHOD 09/24/2024 9:11 AM EDT [facility] RBC 3.60(L) 3.80 - 4.80 M/mcL LAB HEMETOLOGY METHOD 09/24/2024 9:11 AM EDT [facility] Hemoglobin 11.3(L) 11.5 - 16.0 g/dL LAB HEMETOLOGY METHOD 09/24/2024 9:11 AM EDT [facility] Hematocrit 35.0 35.0 - 47.0 % LAB HEMETOLOGY METHOD 09/24/2024 9:11 AM EDT [facility] MCV 96.2 79.0 - 98.0 FL LAB [facility]EMETOLOGY METHOD [facility] MCH 31.0 27.0 - 32.0 pcg LAB HEMETOLOGY METHOD 09/24/2024 9:11 AM EDT [facility] MCHC 32.3 32.0 - 37.0 g/dL LAB HEMETOLOGY METHOD 09/24/2024 9:11 AM EDT [facility] RDW 14.4 11.0 - 15.0 % LAB HEMETOLOGY METHOD 09/24/2024 9:11 AM EDT [facility] Platelets 262 130 - 400 K/mcL LAB HEMETOLOGY METHOD 09/24/2024 9:11 AM EDT [facility] MPV 9.3 7.0 - 11.0 FL LAB HEMETOLOGY METHOD 09/24/2024 9:11 AM EDT [facility] NRBC 0.0 <1.0 % LAB HEMETOLOGY METHOD 09/24/2024 9:11 AM EDT [facility] NRBC Absolute 0.00 <0.10 K/mcL LAB HEMETOLOGY METHOD 09/24/2024 9:11 AM EDT [facility] Blood Venous blood specimen / Unknown Venipuncture / Unknown 09/24/2024 6:13 AM EDT 09/24/2024 8:25 AM EDT us Araceli Maya MD LAB BLOOD ORDERABLES Fin al Result [facility] [address] [place] [address], documented in this encounter Visit Diagnoses Diagnosis Essential (primary) hypertension Unspecified essential hypertension Anemia, unspecified Unspecified osteoarthritis, unspecified site documented in this encounter Care Teams Jeweler Apprentice Relationship Specialty Start Date End Date Vivian Massey DO [address] [place], [place] PCP - General Internal Medicine 07/21/17 documented as of this encounter
--- OUTSIDE RECORDS SUMMARY | 2025-02-21 17:40 | XMS_ITS | Encounter Summary ---
Author Organization [facility] Address [address] [place] [address] Care Team Providers Care Facs Teacher Name Role Phone Vivian Massey Primary Care Provider +1- [phone] Encounter Details Date Type Department Care Team ([facility] st Contact Info) Description 09/25/2024 Lab Requisition [facility] - Main Lab [address] [place] [address] Araceli Maya MD [address] [place] [id number] Hypokalemia Social History Tobacco Use Types Packs/Day [...] CHEMISTRY METHOD 09/26/2024 9:09 AM EDT [facility] Potassium 3.6 3.5 - 5.5 mmol/L [...] al Result [facility] [address] [place] [address], documented in this encounter Visit Diagnoses Diagnosis Hypokalemia Hypopotassemia documented in this encounter Care Teams Facs Teacher Relationship Specialty Start Date End Date Vivian Massey DO [address] [place] [address] PCP - General Internal Medicine 07/21/17 documented as of this encounter
--- OUTSIDE RECORDS SUMMARY | 2025-02-21 17:40 | XMS_ITS | Clinical Summary ---
Author Organization [address] [place] [address] [place] [address] Phone Care Team Providers Care Test Engine Mechanic Name Role Phone Vivian Massey DO Primary Care Provider +1- [phone] Medications Mounjaro 5 mg/0.5 mL injection INJECT ONE PEN (=5MG) SUBCUTANEOUSLY ONCE A WEEK DIRECTED 2 mL 02/19/20 25 Active Mounjaro 5 mg/0.5 mL injection INJECT ONE PEN (=5MG) SUBCUTANEOUSLY ONCE A WEEK DIRECTED 2 mL 12/25/19 25 2024 Discontinued Immunizations Immunization Administration Dates Next Due Moderna SARS-CoV-2 COVID-19, mRNA, LNP-S, preservative free 07/13/2020,06/15/2020 Surgical History Surgery Date Site/Laterality Comments BREAST REDUCTION 1997 PROCEDURE: [place] BREAST REDUCTION SECTION 1982 PROCEDURE: HISTORICAL BLADDER SUSPENSION PROCEDURE: HISTORICAL BLADDER SUSPENSION; COMMENT: Marcus Corin operation GASTRIC BYPASS 2005 PROCEDURE: [place] GASTRIC RSTCV W/BYP W/SM INT RCNSTJ LIMIT [...] on file Sexual Orientation Not on file Last Filed Vital Signs Vital Sign Reading [...] Depression Screening 03/13/2024 COVID-19 Vaccine (3 - season) 2024 07/13/2020, [...] Associated Diagnosis Comments BASIC METABOLIC PANEL Routine 10/22/2024 6:15 AM EDT Essential (primary) hypertension Anemia, unspecified Unspecified osteoarthritis, unspecified site from Last 3 Months or Most Recently Relevant to Health Maintenance Results * (ABNORMAL) Basic metabolic panel (10/22/2024 6:15 AM EDT) Sodium 137 133 - 145 mmol/L LAB CHEMISTRY METHOD 10/22/2024 9:29 AM [facility] Potassium 3.6 3.5 - 5.5 mmol/L LAB CHEMISTRY METHOD 10/22/2024 9:29 AM [facility] Chloride 101 96 - 110 mmol/L LAB CHEMISTRY METHOD 10/22/2024 9:29 AM [facility] CO2 34(H) 21 - 32 mmol/L LAB CHEMISTRY METHOD 10/22/2024 9:29 AM [facility] Anion Gap 2(L) 3 - 11 LAB CHEMISTRY METHOD 10/22/2024 9:29 AM [facility] Glucose 74 70 - 100 mg/dL LAB CHEMISTRY METHOD 10/22/2024 9:29 AM [facility] BUN 14 5 - 25 mg/dL LAB CHEMISTRY METHOD 10/22/2024 9:29 AM [facility] Creatinine 0.89 0.50 - 1.10 mg/dL LAB CHEMISTRY METHOD 10/22/2024 9:29 AM [facility] eGFR 67 >=60 mL/min/1. 73m2 LAB CHEMISTRY METHOD 10/22/2024 9:29 AM [facility] LAB Comment:Calculation based on the Chronic Kidney Disease Epidemiology Collaboration (CKD-EPI) equation refit without adjustment for race. BUN/Creatinine Ratio 15.7 LAB CHEMISTRY METHOD 10/22/2024 9:29 AM [facility] Calcium 8.5 8.5 - 10.5 mg/dL LAB CHEMISTRY METHOD 10/22/2024 9:29 AM [facility] Blood Venous blood specimen / Unknown Venipuncture / Unknown 10/22/2024 6:15 AM EDT 10/22/2024 8:58 AM EDT us Araceli Maya MD LAB BLOOD ORDERABLES Fin al Result [facility] [address] [place] [address], from Last 3 Months or Most Recently Relevant to Health Maintenance Insurance MEDICAID - [place] [employer] MEDICARE Care Teams Test Engine Mechanic Relationship Specialty Start Date End Date Vivian Massey DO [address] [place], [place] PCP - General Internal Medicine 07/21/17
--- OUTSIDE RECORDS SUMMARY | 2025-02-21 17:40 | XMS_ITS | Clinical Summary ---
Author Organization [facility] Prior to 08/10/24 Address [address] [place] [address] Care Team Providers Care Sewing Machine Maintenance Mechanic Name Role Phone Vidal Pinzon MD Primary Care Provider [phone] Medications Medication Sig Dispensed Refills Start Date [...] age to complete this topic Care Teams Sewing Machine Maintenance Mechanic Relationship Specialty Start Date End Date Vidal Pinzon MD [address] [facility] [place] [phone] PCP - General Family Medicine 02/18/20
--- OUTSIDE RECORDS SUMMARY | 2025-02-21 17:41 | XMS_ITS | Encounter Summary ---
Author Organization [facility] Address [address] [place] [address] Care Team Providers Care Camouflage Assembler Name Role Phone Vivian Massey DO Primary Care Provider [phone]- [phone] Encounter Details Date Type Department Care Team (Late st Contact Info) Description 07/20/[address] [facility] - Main Lab 299 [facility] [place] [address] Araceli Maya MD [address] [phone] Anemia, unspecified; Essential (primary) hypertension; Vitamin D [...] mmol/L LAB CHEMISTRY METHOD 07/20/2024 10:59 AM [facility] Potassium 3.9 3.5 - 5.5 mmol/L LAB CHEMISTRY METHOD 07/20/2024 10:59 AM [facility] Chloride 85(L) 96 - 110 mmol/L LAB CHEMISTRY METHOD 07/20/2024 10:59 AM [facility] CO2 31 21 - 32 mmol/L LAB CHEMISTRY METHOD 07/20/2024 10:59 AM [facility] Anion Gap 8 3 - 11 LAB CHEMISTRY METHOD 07/20/2024 10:59 AM [facility] Glucose 78 70 - 100 mg/dL LAB CHEMISTRY METHOD 07/20/2024 10:59 AM [facility] BUN 13 5 - 25 mg/dL LAB CHEMISTRY METHOD 07/20/2024 10:59 AM [facility] Creatinine 0.63 0.50 - 1.10 mg/dL LAB CHEMISTRY METHOD 07/20/2024 10:59 AM [facility] LAB eGFR 92 >=60 mL/min/1. 73m2 LAB CHEMISTRY METHOD 07/20/2024 10:59 AM [facility] LAB Comment:Calculation based on the Chronic Kidney Disease Epidemiology Collaboration (CKD-EPI) equation refit without adjustment for race. BUN/Creatinine Ratio 20.6 LAB CHEMISTRY METHOD 07/20/2024 10:59 AM [facility] Calcium 8.5 8.5 - 10.5 mg/dL LAB CHEMISTRY METHOD 07/20/2024 10:59 AM [facility] Blood Venous blood specimen / Unknown Venipuncture / Unknown 07/20/2024 6:07 AM EDT 07/20/2024 9:41 AM EDT us Araceli Maya MD LAB BLOOD ORDERABLES Fin al Result [facility] [address] [place] [address], * (ABNORMAL) Complete blood count (07/20/2024 6:07 AM EDT) WBC 3.8(L) 4.8 - 10.8 K/mcL LAB HEMETOLOGY METHOD 07/20/2024 10:30 AM EDT [facility] RBC 3.60(L) 3.80 - 4.80 M/mcL LAB HEMETOLOGY METHOD [facility]/20[facility]24 [facility] Hemoglobin 11.4(L) 11.5 - 16.0 g/dL LAB HEMETOLOGY METHOD 07/20/2024 10:30 AM [facility] Hematocrit 33.3(L) 35.0 - 47.0 % LAB HEMETOLOGY METHOD 07/20/2024 10:[facility] MCV 93.3 79.0 - 98.0 FL LAB HEMETOLOGY METHOD 07/20/2024 10:30 [facility] MCH 31.9 27.0 - 32.0 pcg LAB HEMETOLOGY METHOD 07/20/2024 10:30 AM EDT [facility] MCHC 34.2 32.0 - 37.0 g/dL LAB HEMETOLOGY METHOD 07/20/2024 10:30 [facility] RDW 12.7 11.0 - 15.0 % LAB HEMETOLOGY METHOD 07/20/2024 10:30 [facility] Platelets 194 130 - 400 K/mcL LAB HEMETOLOGY METHOD 07/20/2024 10:30 [facility] MPV 9.6 7.0 - [...] al Result [facility] [address] [place] [address], documented in this encounter Visit Diagnoses Diagnosis Anemia, unspecified Essential (primary) hypertension Unspecified essential hypertension Vitamin D deficiency, unspecified documented in this encounter Care Teams Camouflage Assembler Relationship Specialty Start Date End Date Vivian Massey DO [address] [place] [address] PCP - General Internal Medicine 07/21/17 documented as of this encounter
--- OUTSIDE RECORDS SUMMARY | 2025-02-21 17:41 | XMS_ITS | Encounter Summary ---
Author Organization [facility] Address [address] [place] [address] Care Team Providers Care Title Vehicle Service Attendant Name Role Phone Vivian Massey DO Primary Care Provider [phone]- [phone] Encounter Details Date Type Department Care Team (Late st Contact Info) Description 10/14/2024 Lab Requisition [facility] - Main Lab 299 [facility] [place] [address] Araceli Maya MD [address] [phone] Essential (primary) hypertension; Anemia, unspecified; Unspecified osteoarthritis, [...] Complete blood count (10/15/2024 6:42 AM EDT) [facility] WBC 5.2 4.8 - 10.8 K/mcL LAB HEMETOLOGY METHOD 10/15/2024 9:09 AM [facility] LAB RBC 3.50(L) 3.80 - 4.80 M/mcL LAB HEMETOLOGY METHOD 10/15/2024 9:09 AM [facility] LAB Hemoglobin 11.0(L) 11.5 - 16.0 g/dL LAB HEMETOLOGY METHOD 10/15/2024 9:09 AM [facility] LAB Hematocrit 34.0(L) 35.0 - 47.0 % LAB HEMETOLOGY METHOD 10/15/2024 9:09 AM [facility] LAB MCV 96.0 79.0 - 98.0 FL LAB HEMETOLOGY METHOD 10/15/2024 9:09 AM [facility] LAB MCH 31.1 27.0 - 32.0 pcg LAB HEMETOLOGY METHOD 10/15/2024 9:09 AM [facility] LAB MCHC 32.4 32.0 - 37.0 g/dL LAB HEMETOLOGY METHOD 10/15/2024 9:09 AM [facility] RDW 14.6 11.0 - 15.0 % LAB HEMETOLOGY METHOD 10/15/2024 9:09 AM [facility] LAB Platelets 264 130 - 400 K/mcL LAB HEMETOLOGY METHOD 10/15/2024 9:09 AM [facility] MPV 8.8 7.0 - 11.0 FL LAB HEMETOLOGY METHOD 10/15/2024 9:09 AM [facility] NRBC 0.0 <1.0 % LAB HEMETOLOGY METHOD 10/15/2024 9:09 AM [facility] LAB NRBC Absolute 0.00 <0.10 K/mcL LAB HEMETOLOGY METHOD 10/15/2024 9:09 AM [facility] Blood Venous blood specimen / Unknown Venipuncture / Unknown 10/15/2024 6:42 AM EDT 10/15/2024 8:23 AM EDT us Araceli Maya MD LAB BLOOD ORDERABLES Fin al Result [facility] [address] [place] [address], * (ABNORMAL) Basic metabolic panel (10/15/2024 6:42 AM EDT) Sodium 134 133 - 145 mmol/L LAB CHEMISTRY METHOD 10/15/2024 9:34 AM [facility] Potassium 4.1 3.5 - 5.5 mmol/L LAB CHEMISTRY METHOD 10/15/2024 9:34 AM [facility] Chloride 97 96 - 110 mmol/L LAB CHEMISTRY METHOD 10/15/2024 9:34 AM [facility] CO2 34(H) 21 - 32 mmol/L LAB CHEMISTRY METHOD 10/15/2024 9:34 AM [facility] Anion Gap 3 3 - 11 LAB CHEMISTRY METHOD 10/15/2024 9:34 AM [facility] Glucose 84 70 - 100 mg/dL LAB CHEMISTRY METHOD 10/15/2024 9:34 AM [facility] BUN 15 5 - 25 mg/dL LAB CHEMISTRY METHOD 10/15/2024 9:34 AM [facility] Creatinine 1.01 0.50 - 1.10 mg/dL LAB CHEMISTRY METHOD 10/15/2024 9:34 AM [facility] eGFR 58(L) >=60 mL/min/1. 73m2 LAB CHEMISTRY METHOD 10/15/2024 9:34 AM EDT [facility] Comment:Calculation based on the Chronic Kidney Disease Epidemiology Collaboration (CKD-EPI) equation refit without adjustment for race. BUN/Creatinine Ratio 14.9 LAB CHEMISTRY METHOD 10/15/2024 9:34 AM EDT [facility] Calcium 9.0 8.5 - 10.5 mg/dL LAB CHEMISTRY METHOD 10/15/2024 9:34 AM T [facility] Blood Venous blood specimen / Unknown Venipuncture / Unknown 10/15/2024 6:42 AM EDT 10/15/2024 8:23 AM EDT us Araceli Maya MD LAB BLOOD ORDERABLES Fin al Result [facility] [address] [place] [address], documented in this encounter Visit Diagnoses Diagnosis Essential (primary) hypertension Unspecified essential hypertension Anemia, unspecified Unspecified osteoarthritis, unspecified site documented in this encounter Care Teams Title Vehicle Service Attendant Relationship Specialty Start Date End Date Vivian Massey DO [address] [place] [address] PCP - General Internal Medicine 07/21/17 documented as of this encounter
--- OUTSIDE RECORDS SUMMARY | 2025-02-21 17:41 | XMS_ITS | Encounter Summary ---
Author Organization [facility] Address [address] [place] [address] Care Team Providers Care Malware Analyst Name Role Phone Vivian Massey DO Primary Care Provider [phone]- [phone] Encounter Details Date Type Department Care Team ([facility] st Contact Info) Description 07/29/2024 Lab Requisition [facility] - Main Lab [address] [facility] [place] [address] Araceli Maya MD [address] [id number] Essential (primary) hypertension; Anemia, unspecified; Unspecified osteoarthritis, [...] mmol/L LAB CHEMISTRY METHOD 07/30/2024 12:09 PM [facility] Potassium 3.9 3.5 - 5.5 mmol/L LAB CHEMISTRY METHOD 07/30/2024 12:09 PM [facility] Chloride 96 96 - 110 mmol/L LAB CHEMISTRY METHOD 07/30/2024 12:09 PM [facility] CO2 30 21 - 32 mmol/L LAB CHEMISTRY METHOD 07/30/2024 12:09 PM [facility] Anion Gap 7 3 - 11 LAB CHEMISTRY METHOD 07/30/2024 12:09 PM [facility] Glucose 71 70 - 100 mg/dL LAB CHEMISTRY METHOD 07/30/2024 12:09 PM [facility] BUN 13 5 - 25 mg/dL LAB CHEMISTRY METHOD 07/30/2024 12:09 PM [facility] Creatinine 0.80 0.50 - 1.10 mg/dL LAB CHEMISTRY METHOD 07/30/2024 12:09 PM [facility] eGFR 76 >=60 mL/min/1. 73m2 LAB CHEMISTRY METHOD 07/30/2024 12:09 PM [facility] Comment:Calculation based on the Chronic Kidney Disease Epidemiology Collaboration (CKD-EPI) equation refit without adjustment for race. BUN/Creatinine Ratio 16.3 LAB CHEMISTRY METHOD 07/30/2024 12:09 PM [facility] Calcium 8.3(L) 8.5 - 10.5 mg/dL LAB CHEMISTRY METHOD 07/30/2024 12:09 PM [facility] Blood Venous blood specimen / Unknown Venipuncture / Unknown 07/30/2024 6:05 AM EDT 07/30/2024 10:35 AM EDT us Araceli Maya MD LAB BLOOD ORDERABLES Fin al Result [facility] [address] [place] [address], * (ABNORMAL) Complete blood count (07/30/2024 6:05 AM EDT) WBC 4.6(L) 4.8 - 10.8 K/mcL LAB HEMETOLOGY METHOD 07/30/2024 10:49 AM EDT [facility] RBC 3.40(L) 3.80 - 4.80 M/mcL LAB HEMETOLOGY METHOD [facility] Hemoglobin 10.5(L) 11.5 - 16.0 g/dL LAB HEMETOLOGY METHOD 07/30/2024 10:49 AM [facility] Hematocrit 32.1(L) 35.0 - 47.0 % LAB HEMETOLOGY METHOD 07/30/2024 10:[facility] MCV 95.3 79.0 - 98.0 FL LAB HEMETOLOGY METHOD 07/30/2024 10:[facility] MCH 31.2 27.0 - 32.0 pcg LAB HEMETOLOGY METHOD 07/30/2024 10:49 AM EDT [facility] MCHC 32.7 32.0 - 37.0 [...] LAB HEMETOLOGY METHOD 07/30/2024 10:49 AM EDT [facility] NRBC 0.0 <1.0 % LAB HEMETOLOGY METHOD 07/30/2024 10:49 AM EDT [facility] NRBC Absolute 0.00 <0.10 K/mcL LAB HEMETOLOGY METHOD 07/30/2024 10:49 AM EDT [facility] Blood Venous blood specimen / Unknown Venipuncture / Unknown 07/30/2024 6:05 AM EDT 07/30/2024 10:35 AM EDT us Araceli Maya MD LAB BLOOD ORDERABLES Fin al Result [facility] [address] [place] [address], documented in this encounter Visit Diagnoses Diagnosis Essential (primary) hypertension Unspecified essential hypertension Anemia, unspecified Unspecified osteoarthritis, unspecified site documented in this encounter Care Teams Malware Analyst Relationship Specialty Start Date End Date Vivian Massey DO [address] [place] [address] PCP - General Internal Medicine 07/21/17 documented as of this encounter
--- OUTSIDE RECORDS SUMMARY | 2025-02-21 17:41 | XMS_ITS | Encounter Summary ---
Author Organization [facility] Address [address] [place] [address] Care Team Providers Care Agricultural Engineering Technologist Name Role Phone Vivian Massey DO Primary Care Provider +1- [phone] Encounter Details Date Type Department Care Team ([facility] st Contact Info) Description 07/22/2024 Lab Requisition [facility] - Main Lab [address] [facility] [place] [address] Araceli Maya MD [address] [phone] Essential (primary) hypertension; Anemia, unspecified; Unspecified osteoarthritis, [...] mmol/L LAB CHEMISTRY METHOD 07/23/2024 10:46 AM [facility] Potassium 3.6 3.5 - 5.5 mmol/L LAB CHEMISTRY METHOD 07/23/2024 10:46 AM [facility] Chloride 92(L) 96 - 110 mmol/L LAB CHEMISTRY METHOD 07/23/2024 10:46 AM [facility] CO2 31 21 - 32 mmol/L LAB CHEMISTRY METHOD 07/23/2024 10:46 AM [facility] Anion Gap 7 3 - 11 LAB CHEMISTRY METHOD 07/23/2024 10:46 AM [facility] Glucose 82 70 - 100 mg/dL LAB CHEMISTRY METHOD 07/23/2024 10:46 AM [facility] BUN 19 5 - 25 mg/dL LAB CHEMISTRY METHOD 07/23/2024 10:46 AM [facility] Creatinine 0.84 0.50 - 1.10 mg/dL LAB CHEMISTRY METHOD 07/23/2024 10:46 AM [facility] eGFR 72 >=60 mL/min/1. 73m2 LAB CHEMISTRY METHOD 07/23/2024 10:46 AM [facility] Comment:Calculation based on the Chronic Kidney Disease Epidemiology Collaboration (CKD-EPI) equation refit without adjustment for race. BUN/Creatinine Ratio 22.6 LAB CHEMISTRY METHOD 07/23/2024 10:46 AM [facility] Calcium 8.8 8.5 - 10.5 mg/dL LAB CHEMISTRY METHOD 07/23/2024 10:46 AM [facility] Blood Venous blood specimen / Unknown Venipuncture / Unknown 07/23/2024 7:15 AM EDT 07/23/2024 10:01 AM EDT us Araceli Maya MD LAB BLOOD ORDERABLES Fin al Result [facility] [address] [place] [address], * (ABNORMAL) Complete blood count (07/23/2024 7:15 [...] % LAB HEMETOLOGY METHOD [facility]/23[facility]2024 10:[facility] Platelets 287 130 - [...] al Result [facility] [address] [place] [address], documented in this encounter Visit Diagnoses Diagnosis Essential (primary) hypertension Unspecified essential hypertension Anemia, unspecified Unspecified osteoarthritis, unspecified site documented in this encounter Care Teams Agricultural Engineering Technologist Relationship Specialty Start Date End Date Vivian Massey DO [address] [place], [place] PCP - General Internal Medicine 07/21/17 documented as of this encounter
--- OUTSIDE RECORDS SUMMARY | 2025-02-21 17:41 | XMS_ITS | Encounter Summary ---
Author Organization [facility] Address [address] [place] [address] Care Team Providers Care Podiatric Aide Name Role Phone Vivian Massey DO Primary Care Provider +1- [phone] Encounter Details Date Type Department Care Team ([facility] st Contact Info) Description 10/21/2024 Lab Requisition [facility] - Main Lab [address] [facility] [place] [address] Araceli Maya MD [address] [phone] Essential (primary) hypertension; Anemia, unspecified; Unspecified osteoarthritis, [...] Complete blood count (10/22/2024 6:15 AM EDT) [facility] Signature WBC 3.6(L) 4.8 - 10.8 K/mcL LAB HEMETOLOGY METHOD 10/22/2024 9:10 AM [facility] RBC 3.40(L) 3.80 - 4.80 M/mcL LAB HEMETOLOGY METHOD 10/22/2024 9:10 AM [facility] Hemoglobin 10.6(L) 11.5 - 16.0 g/dL LAB HEMETOLOGY METHOD 10/22/2024 9:10 AM [facility] Hematocrit 32.5(L) 35.0 - 47.0 % LAB HEMETOLOGY METHOD 10/22/2024 9:10 AM [facility] MCV 95.0 79.0 - 98.0 FL LAB HEMETOLOGY METHOD 10/22/2024 9:10 AM [facility] MCH 31.0 27.0 - 32.0 pcg LAB HEMETOLOGY METHOD 10/22/2024 9:10 AM [facility] MCHC 32.6 32.0 - 37.0 g/dL LAB HEMETOLOGY METHOD 10/22/2024 9:10 AM [facility] RDW 14.6 11.0 - 15.0 % LAB HEMETOLOGY METHOD 10/22/2024 9:10 AM [facility] Platelets 254 130 - 400 K/mcL LAB HEMETOLOGY METHOD 10/22/2024 9:10 AM [facility] MPV 8.9 7.0 - 11.0 FL LAB HEMETOLOGY METHOD 10/22/2024 9:10 AM [facility] NRBC 0.0 <1.0 % LAB HEMETOLOGY METHOD 10/22/2024 9:10 AM [facility] NRBC Absolute 0.00 <0.10 K/mcL LAB HEMETOLOGY METHOD 10/22/2024 9:10 AM [facility] Blood Venous blood specimen / Unknown Venipuncture / Unknown 10/22/2024 6:15 AM EDT 10/22/2024 8:58 AM EDT us Araceli Maya MD LAB BLOOD ORDERABLES Fin al Result [facility] [address] [place] [address], * (ABNORMAL) Basic metabolic panel (10/22/2024 6:15 AM EDT) Sodium 137 133 - 145 mmol/L LAB CHEMISTRY METHOD 10/22/2024 9:29 AM [facility] Potassium 3.6 3.5 - 5.5 mmol/L LAB CHEMISTRY METHOD 10/22/2024 9:29 AM [facility] Chloride 101 96 - 110 mmol/L LAB CHEMISTRY METHOD 10/22/2024 9:29 AM [facility] CO2 34(H) 21 - 32 mmol/L LAB CHEMISTRY METHOD 10/22/2024 9:29 AM [facility] Anion Gap 2(L) 3 - 11 LAB CHEMISTRY METHOD 10/22/2024 9:29 AM [facility] Glucose 74 70 - 100 mg/dL LAB CHEMISTRY METHOD 10/22/2024 9:29 AM [facility] BUN 14 5 - 25 mg/dL LAB CHEMISTRY METHOD 10/22/2024 9:29 AM [facility] Creatinine 0.89 0.50 - 1.10 mg/dL LAB CHEMISTRY METHOD 10/22/2024 9:29 AM [facility] eGFR 67 >=60 mL/min/1. 73m2 LAB CHEMISTRY METHOD 10/22/2024 9:29 AM EDT [facility] Comment:Calculation based on the Chronic Kidney Disease Epidemiology Collaboration (CKD-EPI) equation refit without adjustment for race. BUN/Creatinine Ratio 15.7 LAB CHEMISTRY METHOD 10/22/2024 9:29 AM EDT [facility] Calcium 8.5 8.5 - 10.5 mg/dL LAB CHEMISTRY METHOD 10/22/2024 9:29 AM EDT [facility] Blood Venous blood specimen / Unknown Venipuncture / Unknown 10/22/2024 6:15 AM EDT 10/22/2024 8:58 AM EDT us Araceli Maya MD LAB BLOOD ORDERABLES Fin al Result [facility] [address] [place] [address], documented in this encounter Visit Diagnoses Diagnosis Essential (primary) hypertension Unspecified essential hypertension Anemia, unspecified Unspecified osteoarthritis, unspecified site documented in this encounter Care Teams Podiatric Aide Relationship Specialty Start Date End Date Vivian Massey DO [address] [place] [address] PCP - General Internal Medicine 07/21/17 documented as of this encounter
== END 2025-02-21 11:22 | disposition home or self-care (01) ==
LOC: HO.LAB 11:21
PROVIDERS: PCP Family Medicine; Visit Provider Urology
DX: N20.0 Calculus of kidney (principal); R32 Unspecified urinary incontinence; N39.0 Urinary tract infection, site not specified; R31.29 Other microscopic hematuria
CPT/HCPCS: 81003; 87086; 88112; 99202

== ENCOUNTER 2025-02-21 11:21 | Outpatient (AMB) | payer MEDICARE, MEDICAID, SELFPAY ==
--- NOTE | 2025-02-21 12:11 | A.OFFVIS_ITS ---
Intake Visit Reasons: Kidney Stone/[place]/UTI/Frequency/PVR/UA(set) Intake Note: Reason for Visit: New Patient [facility] ER Kidney Stone/[place]/UTI/Frequency Urology Meds: None Blood Thinners: None Antibiotic Allergy: None Labs: BUN: 10 Creatinine:0.90 (01/03/2025) Urine Culture: 01/03/2025 Imaging: Abdomen/Pelvis CT- 07/13/2024 Last PVR: None Family History: Prostate Cancer? no Bladder Cancer? no Kidney Cancer?no Smoking History? former 27years ago Previous Urology? no Volunteer Services Coordinator Required: No Accompanied by: Self / Same As Patient Allergies prednisone (PREDNISONE) Allergy (Severe, Verified 12/06/24 11:17) AGITATION HPI Comments Details: Residence is a pleasant female. She is a patient of Dr. Kathleen. She is seen in the following urologic conditions - kidney stones - hydro nephrosis UA today positive leuks, positive blood Consistent with stone burden Nephrolithiasis Imaging - CT - atrophic left kidney with multiple kidney stones PFSH Medical History Asthma Thoracic compression fracture Lumbar stenosis DDD (degenerative disc disease) History of anemia Anxiety Osteoarthritis of right knee Urinary incontinence History of broken leg Fall Renal calculi Osteoporosis Insomnia Depression Hypovitaminosis D Constipation by delayed colonic transit Iron deficiency anemia Essential hypertension Moderate asthma Dyslipidemia Surgical History History of repair of rectocele History of lithotripsy History of tonsillectomy Status post open reduction with internal fixation (ORIF) of fracture of ankle History of bladder suspension procedure Hx of laparoscopic gastric banding Hx of breast reduction, elective H/O: section Family History Father No problems noted. Mother Breast cancer Sister Diabetes Heart attack Maternal Grandmother Brain cancer Social History Household Members: None Household Members Other:: 1 Housing: Apartment Are you a primary resident care coordinator to a significant other at home: No Do you presently have visiting nurse or other home services: No Alcohol intake: never Patient Tobacco Use Status: Former Tobacco user Tobacco use type: Cigarette Cigarette Packs Per Day: 1 Second Hand Smoke Exposure: No Advance Directives Date on File: 01/14/22 service: No Current occupational status: unemployed Results AMB Urinalysis, Automated UA Leukoctes 500 [place]se/uL Last Edit by Vivian Valencia A on 02/21/25 12:19 UA Nitrite Negative Last Edit by Vivian Valencia, A on 02/21/25 12:19 UA Urobilinogen 0.2 mg/dL Last Edit by Vivian Valencia, A on 02/21/25 12:1 9 UA Protein 30 mg/dL Last Edit by Vivian Valencia, A on 02/21/25 12:19 UA pH 6.5 Last Edit by Vivian Valencia, A on 02/21/25 12:19 UA Blood 80 Cliff/uL Last Edit by Vivian Valencia, A on 02/21/25 12:19 UA Specific [place] 1.015 Last Edit by Vivian Valencia, A on 02/21/25 12: 19 UA Ketone Negative Last Edit by Vivian Valencia, A on 02/21/25 12:19 UA Bilirubin 0 mg/dL Last Edit by Vivian Valencia, A on 02/21/25 12:19 UA Glucose 0 mg/dL Last Edit by Vivian Valencia, [facility] on 02/21/25 12:19 Results Reviewed Results Reviewed: Laboratory Last Values Urine pH (Auto) 6.5 02/21/25 12:12 Specific [place] (Auto) 1.015 02/21/25 12:12 Urine Protein (Auto) 30 mg/dL 02/21/25 12:12 Glucose (UA)(Auto) 0 mg/dL 02/21/25 12:12 Urine Ketones (Auto) Negative 02/21/25 12:12 Urine Blood (Auto) 80 Cliff/uL 02/21/25 12:12 Urine Nitrite (Auto) Negative 02/21/25 12:12 Urine Bilirubin (Auto) 0 mg/dL 02/21/25 12:12 Urine Urobilinogen (Auto) 0.2 mg/dL 02/21/25 12:12 Leukocyte Esterase (Auto) 500 Varg[place]se/uL 02/21/25 12:12 Assessment & Plan Assessment & Plan Orders: Orders AMB Urinalysis Automated Today Z13.9 - Encounter for screening, unspecified Urine Cytology Today N39.0 - Urinary tract infection, site not specified, R31.29 - Other microscopic hematuria Urine Culture Today N39.0 - Urinary tract infection, site not specified, R31.29 - Other microscopic hematuria Coding
== END 2025-02-21 12:43 | disposition home or self-care (01) ==
LOC: HO.HUSH 11:21
PROVIDERS: PCP Family Medicine; Visit Provider Urology
DX: Z13.9 Encounter for screening, unspecified (principal)

== ENCOUNTER 2025-03-04 13:22 | Outpatient (RCR) | payer OTHER, MEDICARE, MEDICAID, SELFPAY ==
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
--- NOTE | 2025-03-04 15:10 | MHC.PT.DC ---
[facility] [place] Office [place] Office [place] Office [address] Kee Mary [address] [phone] F: [phone] F: [phone] F: [phone] F: [phone] Physical Therapy Discharge Report Diagnosis: RIGHT DISPLACED BIMALLEOLAR ANKLE FRACTURE Date of Surgery: DOI 08/09/24 Date of Evaluation: 01/14/25 Date of Discharge: 03/04/25 Treatments to Date: 5 Cancellations to Date: 6 No Shows to Date: 1 Discharge Status: Achieved Goals Improved Function Independent with HEP Discharge Summary: ARIEL HAS MADE SIGNIF PROGRESS IN PT- HER Rt ANKLE SXS HAVE RESOLVED, SHE AMB W EFFICIENT GAIT MECH W/O ASST DEVICES ON LEVEL GROUND AND STAIRS, AND SHE IS INDEP W HER HEP. HER STRENGTH IN Rt LE IS WFL. HER LEFI SCORE AT D/C IS 22/80 ( AT EVAL 22/80). TUG TEST AT EVAL: 23 SECONDS W W/WALKER AND TODAY AT D/C, 10 SECONDS W/O ASST DEVICES. ARIEL HAS MET HER PT GOALS AND IS D/C THIS DATE W A THOROUGH HEP. Electronically signed by: MIESHA SALAZAR,PT Please sign and return to therapist. Thank you for your referral.
== END 2025-03-04 15:11 | disposition home or self-care (01) ==
LOC: HO.PT 13:22
PROVIDERS: PCP Family Medicine; Visit Provider Physician Assistant
DX: S82.841D Displaced bimalleolar fracture of right lower leg, subsequent encounter for closed fracture with routine healing (principal); S82.842D Displaced bimalleolar fracture of left lower leg, subsequent encounter for closed fracture with routine healing; X58.XXXD Exposure to other specified factors, subsequent encounter; Z87.81 Personal history of (healed) traumatic fracture; Z98.890 Other specified postprocedural states
CPT/HCPCS: 97110; 97162; 97530